=== PATIENT | male | born 1975 | race Hispanic/Latino ===

== ENCOUNTER 2016-12-13 20:04 | Inpatient (IN) | payer MEDICARE, MEDICAID ==
[~2016-12-13] VITALS: Ht 177.8 cm; Wt 266.1 kg
[~2016-12-13 20:04] MED LIST: AMOX500T2 PO; AMOX875T2 PO; GABA-502 PO; LACT1CAP73 PO; LISI10TA PO; METF500T4 PO; OXYC-466 PO; OXYC20TA4 PO; SERT100T9 PO
[2016-12-13 20:27] VITALS: BP 151/91; PULSE 105; RESP 24; O2SAT 93
--- NOTE | 2016-12-13 20:38 | ED.REPORT ---
HPI-Extremity Problem Lower Date of Service Dec 13, 2016 ED Provider: MD Jesús This is a 41 year old male with a history of recurrent lower extremity cellulitis with sepsis, morbid obesity, HTN and DM presenting to the ED complaining of right lower extremity swelling and pain that worsened 2 today. Reports chills. Denies nausea, vomiting, abdominal pain, headache, constipation , or diarrhea. Pt recently admitted from 11/02-11/07/16 for LE cellulitis with sepsis. Pt on chronic amoxicillin for recurring cellulitis but has not taken antibiotics in one week. Nursing Notes Stated Complaint: LEFT LEG POSSIBLE CELLULITIS Chief Complaint: Extremity Trauma Nursing Notes Reviewed: Yes Allergies: Coded Allergies: linezolid (Verified Allergy, Severe, Rash,Itching,, 07/25/14) Hives vancomycin (Verified Allergy, Severe, 12/13/16) Kidneys "shut down". Scheduled Gabapentin (Gabapentin) 300 Mg Capsule 900 MG PO DAILY Lisinopril (Lisinopril) 10 Mg Tablet 10 MG PO DAILY Sertraline HCl (Sertraline) 100 Mg Tablet 150 MG PO DAILY Scheduled PRN oxyCODONE (oxyCODONE) 20 Mg Tablet 20 MG PO QID PRN PRN For Pain General Time Seen by MD: 20:36 Chief Complaint Other (L leg pain ) Hx Obtained From: Patient Arrived By: Walk-in Onset Occurred: 5 - 8 hours ago Symptom Duration: Since onset Severity: Current: Moderate Pertinent Negative: Pt denies other symptoms Recent Healthcare: Recent doctor visit, Recent hospitalization Similar Sx Previous: Yes Past Medical History Past Medical History 1. Recurrent cellulitis right lower extremity, also hx of abdominal cellulitis 2. Severe lymphedema of right lower extremity greater than left. 3. Severe Morbid obesity. 4. Hypertension. 5. Chronic pain with narcotic dependence. 6. Seasonal allergies. 7. Obstructive sleep apnea. CPAP intolerant. 8. Fibromyalgia. 9. Sepsis 10. Arthritis 11. Depression 12. Anxiety Past Surgical History Hernia repair Reports: Cholecystectomy Smoking History Never Smoker Social History Uses mobility scooter Alcohol Use: Denies alcohol use Drug Use: Denies drug use Other Social History: Ambulatory Status Independent Review of Systems Constitutional: Reports: Chills, Denies: Fever Musculoskeletal: Reports: Extremity pain, Extremity swelling, Denies: Back pain, Neck pain Neurologic: Denies: Headache Complete sys rev & neg: except as marked. GI: Denies: Abdominal pain, Constipation, Diarrhea, Nausea, Vomiting Physical Exam Initial Vital Signs Vital Signs (First) Date Time Temp Pulse Resp B/P Pulse Ox O2 Delivery O2 Flow Rate FiO2 12/13/16 20:27 36.7 105 24 151/91 93 Room Air Initial VS: Reviewed Head / Eyes: Atraumatic, Normocephalic, PERRL ENT: Mucous membranes moist, Conjunctiva normal, No scleral icterus Neck: Supple, Non-tender, Full range of motion Respiratory: Breath sounds normal, Clear to auscultation, No respiratory distress Abdomen / GI: Soft, Non-tender, No guarding, No rebound, No distention Upper Extremities: Vascular intact, Neuro intact, No swelling, No tenderness Skin: Warm, Dry, No cyanosis Neurologic: Alert, Oriented, Nonfocal Psychiatric: Mood/affect normal, Behavior normal, Normal thought content Lower Extremity / Pelvis / MS: Full range of motion, Neurologic intact, Vascular intact Right Leg / Calf: Positive: Swelling present... Left Leg / Calf: Positive: Swelling present..., Tenderness present... Chronic venostasis changes to bilateral lower extremities. Circumfurential tenderness to palpation. Pulses present. Ankle / Foot: Full range of motion, No swelling, Neurologic intact, Vascular intact General/Constitutional: Awake, Alert Appearance / Presentation: Positive: Obese Cardiovascular: Regular rhythm, Heart sounds NL, Pulses = bilaterally Heart Rate / Rhythm: Positive: Tachycardia Lower Ext Edema: Positive: Bilateral 2+, Pitting Interpretation & Diagnostics Lab Results Interpretation Result Diagram: 12/13/16211912/13/162119 Test 12/13/16 21:20 White Blood Count 8.9th/mm3 (3.8-10.1) Red Blood Count 4.32mil/mm3 (4.40-5.80) Hemoglobin 11.5g/dL (13.8-17.2) Hematocrit 36.4% (41.0-50.0) Mean Corpuscular Volume 84.3fL (81-100) Mean Corpuscular Hemoglobin 26.6pg (27.0-35.0) Mean Corpuscular Hemoglobin Concent 31.6% (32.0-37.0) Red Cell Distribution Width 14.9% (12.3-15.4) Platelet Count 255bil/L (150-400) Neutrophils (%) (Auto) 82.1% (40-74) Lymphocytes (%) (Auto) 9.9% (14-46) Monocytes (%) (Auto) 6.1% (4-12) Eosinophils (%) (Auto) 1.5% (0-5) Basophils (%) (Auto) 0.2% (0-3) Sodium Level 135mEq/L (134-144) Potassium Level 4.5mEq/L (3.5-5.2) Chloride Level 100mEq/L (97-108) Carbon Dioxide Level 24mmol/L (18-29) Blood Urea Nitrogen 22mg/dL (6-24) Creatinine 1.36mg/dL (0.76-1.27) Estimat Glomerular Filtration Rate 61mL/min (>59) Glucose Level 130mg/dL (60-99) Lactic Acid Level 1.7mmol/L (0.4-2.0) Calcium Level 8.8mg/dL (8.5-10.1) Total Bilirubin 0.2mg/dL (0.0-1.2) Aspartate Amino Transf (AST/SGOT) 55U/L (0-50) Alanine Aminotransferase (ALT/SGPT) 35U/L (0-44) Alkaline Phosphatase 62U/L (25-150) Total Protein 8.1g/dL (6.4-8.4) Albumin 3.3g/dL (3.4-5.0) Re-Eval/Medical Decision Med Decision/Clinical Course 41-year-old male with past medical history of hypertension and severe morbid obesity, with recurrent bilateral lower extremity cellulitis here with left lower extremity pain, swelling, and redness. Differential diagnosis includes but is not limited to cellulitis versus necrotizing fasciitis versus deep vein thrombosis versus drug-seeking behavior. Clinically, the patient has cellulitis. He has no tenderness beyond the borders of the erythema, he has no hemorrhagic bulla, and he has no crepitus. I do not feel he requires further imaging. Additionally, he has had multiple ultrasonographic studies to rule out DVT, all of which were negative. Given how quickly the symptoms started, in their consistency with his previous presentation, I do not feel he requires an ultrasound of his leg to rule out DVT. He has been given clindamycin for his cellulitis, along with Dilaudid for pain control. He has been admitted to the hospitalist service for further treatment. He is aware and amenable to plan. Consultation : Referral / Consult Name: AleishanancyrobertKim Carolyne CASTELAN Consulted With: Hospitalist Call Returned at: 22:36 Card Writer Hand: Accepts admit Counseled Regarding: Diagnosis, Lab results, Need for follow-up, Need for admission Discharge & Departure Impression: Primary Impression: Cellulitis Site of cellulitis: extremity Site of cellulitis of extremity: lower extremity Laterality: left Qualified Code: L03.116 - Cellulitis of left lower limb Disposition: ADMITTED TO HOSPITAL Discharge Condition All VS Reviewed: Yes Condition: Stable Referrals: Derek Castro MD (PCP) Scribe Attestation Portions of this note were transcribed by Amandeep Martinez. I, Dr. Espinosa personally performed the history, physical exam and medical decision-making; I reviewed and confirmed the accuracy of the information in the transcribed note. Signed by: ana Cotter. 12/13/2016, 21:00. Claudia Espinosa MD Dec 13, 2016 20:37 AMANDEEP MARTINEZ Dec 13, 2016 20:39
[2016-12-13 21:40] LABS: BASOPHILS % (AUTO) 0.2 % (0-3); EOSINOPHILS % (AUTO) 1.5 % (0-5); MONOCYTES % (AUTO) 6.1 % (4-12); Mean Corpuscular Hemoglobin 26.6 pg (27.0-35.0); Mean Corpuscular Volume 84.3 fL (81-100); NEUTROPHILS % (AUTO) 82.1 % (40-74); Platelet Count 255 bil/L (150-400)
[2016-12-13] MEDS ORDERED: 0.9% Sodium Chloride 1,000 ML IV ONE (21:45)
[2016-12-13] MEDS ORDERED: HYDROmorphone 1 mg/mL Inj IVPUSH ONE (21:45)
[2016-12-13] MEDS ORDERED: Clindamycin Inj 900 MG in IV Premix 1 EACH IV ONE (21:45)
[2016-12-13] MEDS ORDERED: Polyethylene Glycol (PEG) 17 Gm Powder PO PRN (22:40)
[2016-12-13] MEDS ORDERED: Alum-Mag Hydrox-Simeth 30 mL Suspension PO PRN (22:40)
[2016-12-13] MEDS ORDERED: Ondansetron 2 mg/mL 2 mL Inj IVPUSH PRN (22:40)
[2016-12-13 23:14] VITALS: BP 141/61; PULSE 99; RESP 16; O2SAT 99
[2016-12-14] VITALS (9 sets, daily range): BP systolic 123–170; BP diastolic 70–108; PULSE 72–104; RESP 16–20; O2SAT 92–99
[2016-12-14 00:10] LABS: APPEARANCE,URINE SLIGHTLY CLOUDY (CLEAR,HAZY); COLOR,URINE DARK YELLOW (YELLOW); OCCULT BLOOD,URINE LARGE (NEGATIVE); UROBILINOGEN,URINE NORMAL (NORMAL)
[2016-12-14 00:11] LABS: YEAST,URINE MANY (NONE SEEN)
--- NOTE | 2016-12-14 00:46 | PCM.HPMED ---
Subjective Date of Service Dec 13, 2016 Primary Provider: Admitting Physician: Kim Domínguez DO Primary Care Physician: Derek Castro MD Attending Physician: Kim Domínguez DO Admit Status: From the Emergency Department Chief Complaint: Lower extremity pain and swelling History of Present Illness: This is a 41-year-old morbidly obese male with a history of recurrent leg cellulitis and sepsis, severe bilateral lymphedema, hypertension, rheumatoid arthritis, chronic pain, obstructive sleep apnea and depression with anxiety who was brought to [facility] ER by his due to increasing redness, swelling and pain in his left leg that occurred earlier today. He also noted chills. His last admission for cellulitis was last month 11/02/2016 and at that time it involved his left leg also. After his last discharge from the hospital, he was supposed to take Amoxicillin 500 mg bid for prophylaxis indefinitely. However, he stopped taking it about two weeks ago as he noted burning in his tongue and "strange feeling in his mouth and throat". Of note he does have an allergy to vancomycin and linezolid. Patient denies any cough. Denies any chest pain nausea or vomiting. Denies any alteration in bowel movements. Denies any abdominal pain. He does have complain having left thumb pain for 2 months now. On admission to the emergency department patient's vital were: temperature 36.7 , pulse 105, respiratory rate 24, blood pressure 151/91, pulse oximetry 93% on room air. His white count was 8.9. AST was noted to be 55, glucose 130, creatinine 1.36, BUN 22 creatinine with calculated GFR 61. Patient received a dose of IV Clindamycin and Dilaudid for pain. Review of Systems: Comprehensive review of systems was conducted with the patient and found to be negative except as noted above in HPI. Allergies Coded Allergies: linezolid (Verified Allergy, Severe, Rash,Itching,, 07/25/14) Hives vancomycin (Verified Allergy, Severe, 12/13/16) Kidneys "shut down". Home Medications Lisinopril 10 mg DAILY PO Oxycodone 20 mg PO QID PRN Oxycodone-Acetaminophen 10-325 mg PO Q4H PRN Sertraline HCl 150 mg DAILY PO Gabapentin 300 mg PO TID PMH Morbid obesity Current cellulitis or extremities Severe lymphedema of lower extremities Hypertension Rheumatoid Arthritis Chronic pain Obstructive sleep apnea but intolerant of CPAP History of fibromyalgia Depression/anxiety Surgical History Status post cholecystectomy Status post hernia repair Family History Positive for diabetes, rheumatoid arthritis, hypertension, bone cancer. Social History Occupation: Disabled. Hx Alcohol Use: No Hx Substance Use: No Hx Tobacco Use: No Smoking Status: Never Smoker Living Arrangement: with Family Exam Vital Signs Vital Sign - Last Date Time Temp Pulse Resp B/P Pulse Ox O2 Delivery O2 Flow Rate FiO2 12/13/16 23:14 37.6 99 16 141/61 99 Room Air Exam Constitutional: Morbidly obese male who is in pain distress Head: Normocephalic atraumatic Eyes: PERRL, EOMI Mouth: No abnormalities noted Neck: No adenopathy Chest: Clear to auscultation Heart: Regular rate and rhythm S1-S2 without murmur Abdomen: obese, soft nontender bowel sounds present Extremities: Bilateral lymphedema R>L, with left lower extremity erythematous up to about the knee.Tender to touch. No open areas or drainage noted. Left thumb very tender to palpation, but no erythema and/or swelling. Skin: As noted above otherwise no rashes Psych: Mood and affect are appropriate Neuro: Alert and oriented 3. Sensation and motor is not intact bilaterally. Lab and Diagnostics Result Diagram: 12/13/16211912/13/162119 Microbiology Blood cultures pending. Assessment & Plan This is a very pleasant 41-year-old morbidly obese male with a history of severe bilateral lymphedema, recurrent leg cellulitis and sepsis. Admitted for sepsis. #Sepsis, acute, POA -HR>90, RR>20, source LLE cellulitis -treatment as below # Acute on chronic cellulitis with sepsis, present on admission - Patient meets the definition of sepsis due to elevated his tachycardia, tachypnea, and suspected source of infection. We will proceed with IV Clindamycin/piperacillin-tazobactam to cover for cellulitis Blood cultures pending. Consider CT imaging if cellulitis worsens. We will use IV Dilaudid when necessary for pain. - ID consult if needed on Thursday # Chronic kidney disease, present on admission - Cr 1.36 on admission, usually Cr is between 1.37-1.58, has been consistently elevated since last hospital admission. - Give IV fluid hydration and recheck labs in a.m. # Left thumb pain, chronic, present on admission - Consider obtaining x-ray if still symptomatic # Hypertension, chronic, present on admission - Continue with current medication regimen. # Depression/anxiety, chronic, present on admission - Continue with current medication regimen # Obstructive sleep apnea, chronic - Observe for signs and symptoms of obstructive sleep apnea. Patient is intolerant of CPAP. Has an appointment in January for sleep study. - continue pulse ox - DVT prophylaxis subcutaneous Heparin - Bowel regimen as needed - Antiemetic as needed - CODE STATUS: Patient is full code. Pain Evaluation: Adequate Pain Control GI Prophylaxis: Not indicated VTE Prophylaxis Indicated: Meets Criteria for Anticoag Therapy VTE Prophylaxis: Sub-Q Heparin (Unfractionated) Resuscitation Status: CPR: Attempt Resuscitation Attending Statement The patient was seen and examined together with house staff on 12/13/2016 and I agree with the history, exam and plan as outlined in the note above. MELISSA ROBERTSON DO Dec 14, 2016 00:46 Kim Domínguez DO Dec 14, 2016 01:35
[2016-12-14] MEDS: HYDROmorphone 1 mg/mL Inj IVPUSH PRN ×7 (01:28→23:40)
[2016-12-14] MEDS: 0.9% Sodium Chloride 1,000 ML IV SCH ×3 (01:28→21:00)
[2016-12-14] MEDS ORDERED: Piperacillin-Tazo 3.375 Gm Inj 3.375 GM in Dextrose 5% Minibag Plus 50 ML IV ONE (02:35)
--- NOTE | 2016-12-14 02:48 | NUR ---
ADMIT Pt admitted from ED at 0000. Arrived via gurney to room 1018; SBA to [facility] bed. Pt A&Ox3, EDOUARD, VS obtained - pt stable with minimal change in VS since ED, IV SL to Right AC - patent, C/o pain to BLE L>R, Admission Documentation/MedRec completed. Pt oriented to room, call light in reach. Belongings in room and in anteroom. Tele placed. CPOx placed. Remote to bed not working - Controls at end of bed working. Work order placed for remote. Care continues.
[2016-12-14 06:30] LABS: BASOPHILS % (AUTO) 0.1 % (0-3); EOSINOPHILS % (AUTO) 1.8 % (0-5); MONOCYTES % (AUTO) 12.3 % (4-12); Mean Corpuscular Hemoglobin 26.4 pg (27.0-35.0); Mean Corpuscular Volume 84.3 fL (81-100); NEUTROPHILS % (AUTO) 64.1 % (40-74); Platelet Count 244 bil/L (150-400)
[2016-12-14] MEDS ORDERED: oxyCODONE-Acetamin 10-325 mg Tablet PO PRN (08:40)
[2016-12-14] MEDS: Heparin 5,000 Unit/mL Inj SUBQ SCH ×2 (08:58→16:03)
[2016-12-14] MEDS: Clindamycin Inj 900 MG in IV Premix 1 EACH IV SCH ×2 (08:58→17:41)
[2016-12-14] MEDS: Piper-Tazo 3.375 Gm/50 mL D5W Minibag Plus - Q8H over 4 hrs IV SCH ×4 (12:46→19:48)
--- NOTE | 2016-12-14 13:34 | PCM.PNMED ---
Subjective Date of Service Dec 14, 2016 Subjective HPI as per admitting physician: This is a 41-year-old morbidly obese male with a history of recurrent leg cellulitis and sepsis, severe bilateral lymphedema, hypertension, rheumatoid arthritis, chronic pain, obstructive sleep apnea and depression with anxiety who was brought to [facility] ER by his due to increasing redness, swelling and pain in his left leg that occurred earlier today. He also noted chills. His last admission for cellulitis was last month 11/02/2016 and at that time it involved his left leg also. After his last discharge from the hospital, he was supposed to take Amoxicillin 500 mg bid for prophylaxis indefinitely. However, he stopped taking it about two weeks ago as he noted burning in his tongue and "strange feeling in his mouth and throat". Of note he does have an allergy to vancomycin and linezolid. Patient denies any cough. Denies any chest pain nausea or vomiting. Denies any alteration in bowel movements. Denies any abdominal pain. He does have complain having left thumb pain for 2 months now. On admission to the emergency department patient's vital were: temperature 36.7 , pulse 105, respiratory rate 24, blood pressure 151/91, pulse oximetry 93% on room air. His white count was 8.9. AST was noted to be 55, glucose 130, creatinine 1.36, BUN 22 creatinine with calculated GFR 61. Patient received a dose of IV Clindamycin and Dilaudid for pain. S: Patient noting pain 710 and left lower extremity. He wanted to Percocet tens at home and has asked to increase his pain regimen today. Have increased his home regimen of one to 2 every 4 when necessary with 1 mg Dilaudid every 3 when necessary, I recommended and ordered continuous pulse oximetry given his narcotic use. Exam Vital Signs Vital Sign - Last Date Time Temp Pulse Resp B/P Pulse Ox O2 Delivery O2 Flow Rate FiO2 12/14/16 06:29 104 12/14/16 05:10 36.7 123/70 98 Nasal Cannula 2.00 12/14/16 00:15 20 Intake and Output 12/13/16 12/13/16 12/14/16 Cumulative From/Thru 15:00 23:00 07:00 12/13/16 20:27 - 12/14/16 06:31 Intake Total 863 ml 863 ml Output Total 1975 ml 1975 ml Balance -1112 ml -1112 ml Intake Oral 500 ml 500 ml IV Total 363 ml 363 ml Output Urine Total 1975 ml 1975 ml # Bowel Movements 0 0 Exam Constitutional: Morbidly obese male who is in pain distress Head: Normocephalic atraumatic Eyes: PERRL, EOMI Mouth: No abnormalities noted Neck: No adenopathy Chest: Clear to auscultation Heart: Regular rate and rhythm S1-S2 without murmur Abdomen: obese, soft nontender bowel sounds present Extremities: Bilateral severe lymphedema R>L, with left lower extremity erythematous up to about the knee.Tender to touch, well-demarcated. No open areas or drainage noted. Left thumb very tender to palpation, but no erythema and/or swelling. Skin: As noted above otherwise no rashes Psych: Mood and affect are appropriate Neuro: Alert and oriented 3. Sensation and motor is not intact bilaterally. IVs and Medications Medications Reviewed: Medications were reviewed in detail Lab and Diagnostics Result Diagram: 12/14/1660112/14/16601 Microbiology Blood cultures pending. Assessment & Plan This is a very pleasant 41-year-old morbidly obese male with a history of severe bilateral lymphedema, recurrent leg cellulitis and sepsis. Admitted for sepsis. #Sepsis, acute, POA -HR>90, RR>20, source LLE cellulitis -treatment as below # Acute on chronic cellulitis with sepsis, present on admission - Patient meets the definition of sepsis due to elevated his tachycardia, tachypnea, and suspected source of infection. We will proceed with IV Clindamycin/piperacillin-tazobactam to cover for cellulitis Blood cultures pending, no growth on Urine. Consider CT imaging if cellulitis worsens. We will use IV Dilaudid when necessary for pain. - ID consult if needed on Thursday # Chronic kidney disease, present on admission - Cr 1.36 on admission, usually Cr is between 1.37-1.58, has been consistently elevated since last hospital admission. - Give IV fluid hydration and recheck labs in a.m. # Left thumb pain, chronic, present on admission - Consider obtaining x-ray if continues to be symptomatic # Hypertension, chronic, present on admission - Continue with current medication regimen. # Depression/anxiety, chronic, present on admission - Continue with current medication regimen # Obstructive sleep apnea, chronic - Observe for signs and symptoms of obstructive sleep apnea. Patient is intolerant of CPAP. Has an appointment in January for sleep study. - continue pulse ox - DVT prophylaxis subcutaneous Heparin - Bowel regimen as needed - Antiemetic as needed - CODE STATUS: Patient is full code. GI Prophylaxis: Not indicated VTE Prophylaxis: Sub-Q Heparin (Unfractionated) Resuscitation Status: CPR: Attempt Resuscitation Time spent 35 minutes spent with evaluation and management Supa Venegas DO Dec 14, 2016 07:29
--- NOTE | 2016-12-14 14:12 | NUR ---
PAIN/ACTIVITY Patient stated that the Percocet PO has not been effective for pain control. Dr. Venegas was made aware of this. Dilaudid 1 mg IV was ordered and administered. Via FELDT scale patients pain level is 0/10 post medication administration. Tolerating liquids PO and his diet well. Denies nausea. No emesis noted. Denies SOB. Patient has not been OOB at this time. Per patient he just wants to rest now since he arrived in his room early this morning. Voiding without any problems. Patient is on remote tele. Per telemetry tech patient is on sinus rhythm; HR- 70's without any ectopies.
--- NOTE | 2016-12-14 19:25 | NUR ---
assumed care/pain/needs new bed Received report from Alfred HELMS at 1500 and assumed care of pt. Pt c/o 06/01 pain in legs, mainly left leg. Medicated x1 with prn IV dilaudid 1mg and pt reports pain "about the same" after medication administered, offered prn percocet as well but pt declined additional medication. Pt also noted that air was flowing out the mattress, making a hissing noise. This RN called [facility] [employer] and no other uma beds available, pt exceeds weight for other kathrine beds that are available. Called glazier supervisor who states that engineering who fixes the beds only comes Thursday, however there is another uma bed in house that will be available soon this evening and plan is to switch pt out to new bed as soon as possible. Report to next shift at 1900 and next shift RN aware that pt will be switched to new uma bed when available. Care continues. Call light in reach.
--- NOTE | 2016-12-14 21:11 | NUR ---
PER [employer]; will need to call in a.m. to have uma bed delivered. -No available bed in hospital.
[2016-12-15] VITALS (8 sets, daily range): BP systolic 137–179; BP diastolic 70–84; PULSE 66–82; RESP 16–20; O2SAT 96–99
[2016-12-15] MEDS: Clindamycin Inj 900 MG in IV Premix 1 EACH IV SCH ×2 (01:47→08:25)
[2016-12-15] MEDS: Heparin 5,000 Unit/mL Inj SUBQ SCH ×3 (01:53→16:12)
[2016-12-15] MEDS: HYDROmorphone 1 mg/mL Inj IVPUSH PRN ×7 (03:02→22:56)
[2016-12-15] MEDS: Piper-Tazo 3.375 Gm/50 mL D5W Minibag Plus - Q8H over 4 hrs IV SCH ×4 (03:05→10:57)
[2016-12-15] MEDS: 0.9% Sodium Chloride 1,000 ML IV SCH ×2 (03:07→19:41)
--- NOTE | 2016-12-15 03:22 | NUR ---
PAIN; pt turning self from side to side independently. Pt c/o left leg pain. Iv dilaudid given with stated relief for about 3 hours. Antibiotics continue. Pt denied offer of pillows for comfort except at feet.
--- NOTE | 2016-12-15 10:57 | NUR ---
[facility] Signed
[2016-12-15] MEDS: Ceftaroline Inj 600 MG in Dextrose 5% 250 ML IV SCH ×2 (12:54→21:23)
--- NOTE | 2016-12-15 13:03 | DRSVH ---
PROCEDURE: US VEINOUS LEG DUPLEX UNILATERAL, LEFT INDICATIONS: r/o left le dvt TECHNIQUE: Real-time imaging, as well as color and pulse Doppler interrogation, were performed of the lower extr emity deep veins from the inguinal ligament to the popliteal fossa. COMPARISON: [facility], US, US VENOUS LEG DPLX BILAT, 11/05/2016, 16:08. FINDINGS: The deep veins are normally compressible, and free of intraluminal thrombus. Color and pu lse Doppler demonstrate normal phasic intraluminal flow. There is normal augmentation response to di stal compression maneuver. Edema present within the lower leg. IMPRESSION: No deep venous thrombosis identified within the left lower extremity. Soft tissue edema i n the left lower extremity is noted. Dictated by: Kody [facility] Interpreted: Kayleen Romero MD on 12/15/2016 at 13:02 Transcribed by: GIANCARLO on 12/15/2016 at 13:02 Approved by: Kayleen Romero M.D. on 12/15/2016 at 13:44
--- NOTE | 2016-12-15 16:50 | NUR ---
spiritual care:pt request prayer and conversation. pt awaiting pain medicine and described symptoms and pain.
[2016-12-15] MEDS: oxyCODONE-Acetamin 10-325 mg Tablet PO PRN (17:11)
--- NOTE | 2016-12-15 17:19 | CONS ---
[address] [address] CONSULTATION REPORT PATIENT: PO DELGADO : 1975 MR#: [id number] ADMIT: 12/13/2016 JOB ID: [id number] DATE OF SERVICE: 12/15/2016 REASON FOR CONSULTATION: Recurrent severe left lower extremity cellulitis. HISTORY OF PRESENT ILLNESS: The patient is a super morbidly obese gentleman who is well known to me from prior admissions. The patient was last here in October and at that time had a severe streptococcal infection of the left lower extremity below the knee. The diagnosis was established at that time on the basis of serology. He was treated aggressively with intravenous antibiotics and discharged on a dose of prophylactic amoxicillin to be taken indefinitely to prevent recurrent streptococcal infection of the leg. The patient reports he took his b.i.d. amoxicillin for a couple weeks at least but then developed a burning sensation around his tongue and throat, especially when he drank acidic or citrus-type liquids. He also noted there was some irritation around his perianal area, so he quit the prophylactic amoxicillin. He did not specifically notice thrush in his mouth at that time, though it is unclear if he checked or not. In any event, the patient was doing okay until Thursday night, December 13, when he abruptly developed redness of the left lower extremity in association with fever and malaise. 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 In addition to fevers, chills and malaise as well as the pain and swelling in the left lower extremity, he notes some just generalized fatigue but otherwise not much in the way of focal symptoms. No headache or confusion was noted. No recent sore throat. No pulmonary or notable GI symptoms. PAST MEDICAL HISTORY: 1. Super morbid obesity with a BMI now at 87. 2. 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 3. Lymphedema and venous insufficiency of the lower extremities on the basis of extraordinary obesity. 4. Hypertension. 5. Fibromyalgia. 6. Chronic back pain. 7. Depression. 8. Obstructive sleep apnea. 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 He does not smoke or drink alcohol, lives with his and three kids. His children range in age from 17-22. FAMILY HISTORY: Negative for tuberculosis. REVIEW OF SYSTEMS: The patient denies headache. He has no visual complaints, no sinus complaints, no sore throat. No stiff neck. No cough, shortness of breath or chest pain. No abdominal pain, nausea, vomiting, diarrhea, though he does note some loose stools since admission. No specific urinary complaints such as urgency, frequency or dysuria. He does report he has been going to the gym lately and he has lost about 20 pounds. He continues to have the back pain which is a chronic problem for him as well as now pain in the left lower extremity which is usually not painful. PHYSICAL EXAMINATION: Reveals a massively obese gentleman whose current weight is approximately 275 kg for a calculated BMI of 87. He has been afebrile since admission, now temperature 36.4, blood pressure 147/71, pulse 70, respiratory rate 20, saturating well on 2 L. The patient is examined while sitting up in a chair as his bed is being switched out due to a "flat tire." The patient is alert, oriented and able to give a lucid history. There is no evidence for trauma to the head or neck. Sinuses are nontender. Eyes without conjunctival or scleral abnormalities. Nose normal. Oral cavity: No thrush or hairy leukoplakia. No pharyngitis is noted. The neck is supple. It is very obese and difficult to examine. Lungs are fairly clear posteriorly, but breath sounds are quite distant, not surprisingly. Cardiac tones likewise distant but regular rate and rhythm. Abdomen: Massively obese with large pannus. No focal abnormalities are palpated though it is difficult to perform a proper examination. The patient does not have a Reddy catheter. There are no suprapubic abnormalities immediately apparent but, again, this would be difficult to discern. The patient is observed ambulating at times in his room and is able to do so in a fairly steady fashion and even bend over and pick things up off the floor. The patient's lower extremities show venous stasis changes below the knees with lichenification of the tissues and obvious lymphedema. His feet are not swollen, but the area between the knees and ankles is to an extraordinary degree. On the left side, there is erythema, warmth and tenderness overlying the venous stasis changes. The patient is neurologically intact. He has surprisingly good muscle strength and coordination considering his size and is actually walking around the room as I dictate this, dropped something on the floor, pivoted and picked it up smoothly without difficulty. LABORATORIES: Include white blood count 7100, it was normal on admission, too, at 9000, but that was a little left shift on admission. That is now resolved. His creatinine 1.3. LFTs basically normal except for an AST of 55, pro calcitonin 0.11. Urinalysis had 6-10 white cells and grew mixed mario. There is no reason to suspect this patient has a urinary tract infection. One of four blood culture bottles is now growing a Staph species to be identified. In reviewing his records from the last couple of admissions, he has not grown any pathogen from blood and his MRSA screens have been negative. He has grown coag-negative Staph from blood in the past which we consider to be contaminant as there is always one bottle out of the series. IMAGING: No imaging has been done during this admission. IMPRESSION: This is an unfortunate gentleman who weighs 600 pounds or so with a BMI approaching 90. He has been troubled with, of course, back pain but also with recurrent lower extremity infections on the basis of venous insufficiency and lymphedema. During his last admission in October, it was clear that he had a group A strep infection based on his high ASO titer. We had tried to prophylax him with amoxicillin, and I had also strongly recommended that he see his new primary care physician, Dr. Alegria, to find out about weight loss and maybe even bariatric surgery. The patient has followed up with Dr. Alegria and has started to lose some weight through increased exercise and better diet but much work remains to be done. He, unfortunately, quit his amoxicillin because of some oral pain which I suspect was actually thrush judging by his description though he does not have it today. Today we are left with the question again of whether or not his cellulitis is due to Staph or strep. We have one blood culture bottle already growing Staph which could be a contaminant or real if it is turns out to be Staph aureus. Most likely, I think this is group A or group B strep, however. RECOMMENDATIONS: 1. ASO titer will be ordered. 2. MRSA screen will be ordered. 3. An ultrasound of the left lower extremity will be ordered to rule out DVT. 4. I would switch his antibiotics at this point to Ceftaroline to provide coverage for both staph and strep while we await the identification of the organisms of the blood as well as the ASO titer we have ordered. 5. The current antibiotics which include clindamycin and Zosyn can be discontinued. Thank you for this very interesting consult.
--- NOTE | 2016-12-15 18:17 | NUR ---
Pain- Patient complaining of 6-8/10 left leg pain despite ordered pain meds. He stated that his right leg was starting to feel tender from the calf up to his thigh, and it felt like it did in his left leg.I did not notice any change in color or size. MD notified. Patient has been up to bathroom and sat up in chair.
--- NOTE | 2016-12-15 19:08 | PCM.PNMED ---
Subjective Date of Service Dec 15, 2016 Subjective denies any new issues/complaints other than ongoing left leg pain Exam Vital Signs Vital Sign - Last Date Time Temp Pulse Resp B/P Pulse Ox O2 Delivery O2 Flow Rate FiO2 12/15/16 16:08 36.6 75 20 153/83 96 Room Air 12/15/16 04:21 2.00 Intake and Output 12/14/16 12/14/16 12/15/16 Cumulative From/Thru 15:00 23:00 07:00 12/13/16 20:27 - 12/15/16 05:52 Intake Total 1820 ml 1289 ml 3972 ml Output Total 1300 ml 1065 ml 4340 ml Balance 520 ml 224 ml -368 ml Intake Oral 600 ml 700 ml 1800 ml IV Total 1220 ml 589 ml 2172 ml Output Urine Total 1300 ml 1065 ml 4340 ml # Bowel Movements 1 0 1 Exam Constitutional: Morbidly obese male who is in pain distress Head: Normocephalic atraumatic Eyes: PERRL, EOMI Mouth: No abnormalities noted Neck: No adenopathy Chest: Clear to auscultation Heart: Regular rate and rhythm S1-S2 without murmur Abdomen: obese, soft nontender bowel sounds present Extremities: Bilateral severe lymphedema R>L, with left lower extremity erythematous up to about the knee.Tender to touch, well-demarcated. No open areas or drainage noted. Left thumb very tender to palpation, but no erythema and/or swelling. Skin: As noted above otherwise no rashes Psych: Mood and affect are appropriate Neuro: Alert and oriented 3. Sensation and motor is not intact bilaterally. IVs and Medications Medications Reviewed: Medications were reviewed in detail Lab and Diagnostics Result Diagram: 12/14/1660112/14/16601 Microbiology Blood cultures pending. Assessment & Plan 41-year-old morbidly obese male with a history of severe bilateral lymphedema, recurrent leg cellulitis and sepsis. Admitted for sepsis. # Suspected acute sepsis on admission clinically ruled out. -treatment as below # Acute on chronic cellulitis, present on admission - appreciate ID consult. will f/u - f/u ASO titer - f/u MRSA screen - f/u pending cultures - LLE U/S r/o DVT - Abx changed to Ceftaroline per ID recs # one positive blood culture. - ? contamination or real - f/u final culture result - Abx as noted above # Chronic kidney disease, present on admission - Cr 1.36 on admission, usually Cr is between 1.37-1.58, has been consistently elevated since last hospital admission. - improved with IVF over night. # Left thumb pain, chronic, present on admission. Resolved # Hypertension, chronic, present on admission. stable - Continue with current medication regimen. # Depression/anxiety, chronic, present on admission - Continue with current medication regimen # Obstructive sleep apnea, chronic - Observe for signs and symptoms of obstructive sleep apnea. Patient is intolerant of CPAP. Has an appointment in January for sleep study. - continue pulse ox Dispo: 2-3 days GI Prophylaxis: Not indicated VTE Prophylaxis: Sub-Q Heparin (Unfractionated) Resuscitation Status: CPR: Attempt Resuscitation Time spent 35 min Abbe Gallagher Dec 15, 2016 19:08
[2016-12-16 00:19] VITALS: BP 164/84; PULSE 74; RESP 20; O2SAT 96
[2016-12-16] MEDS: Heparin 5,000 Unit/mL Inj SUBQ SCH ×3 (00:48→16:59)
[2016-12-16] MEDS: HYDROmorphone 1 mg/mL Inj IVPUSH PRN ×6 (02:06→21:06)
[2016-12-16 04:36] VITALS: BP 163/95; PULSE 66; RESP 20; O2SAT 99
[2016-12-16] MEDS: Ceftaroline Inj 600 MG in Dextrose 5% 250 ML IV SCH ×3 (05:18→21:05)
--- NOTE | 2016-12-16 06:36 | NUR ---
pain pt has complained of pain 6-8/10 in intensity in his L and R leg. pt believes his R leg is more swollen then usual and the pain in increases. notified. no new orders at this time. pt has received 1mg of IV dilaudid every 3 hrs this shift. he says it brings his pain down no lower then a 5/10. also pts bariatric bed will know longer inflate. the bed manufactures were called who said they would send a repair technician. there is no other bed that meets the weight requirements for the pt available at this time. the charge nurses have taken over the search for a bariatric chair to move the pt into until the bed is fixed.
[2016-12-16] MEDS: 0.9% Sodium Chloride 1,000 ML IV SCH ×2 (08:13→18:35)
[2016-12-16 08:45] VITALS: BP 130/84; PULSE 74
[2016-12-16 10:00] VITALS: BP 154/79; PULSE 70; RESP 21; O2SAT 95
--- NOTE | 2016-12-16 13:19 | NUR ---
Pain Patient reported 6/10 leg pain. 1 mg Dilaudid given. Denies nausea at this time. Patient repositions self for comfort. Call light and tray table within reach. Will continue to monitor patient hourly.
--- NOTE | 2016-12-16 14:15 | NUR ---
Social Work Initial Assessment: SW met with patient at bedside to discuss discharge plan. Patient verified name, address, and contact information. Patient is a 41 year old female admitted on 11/23/16 for cellulitis. Patient payer as Medicare and [employer]. Patient has penitentiary disability. Patient has no VA benefits. Patient PCP as MD Alegria. Patient resides in [facility] with Deb, . Patient states having no previous HHC, SNF DME or AD history. Patient states being independent with needs at this time. SW to follow with IV abx plan pending clinical course. Patient denied any further discharge needs at this time. PLAN: Home with , via POV pending clinical course. SW to follow for IV abx plan pending clinical course Jag [facility]YS Addendum: 12/16/16 at 1425 by KOKI HANSEN Amended: Links added.
--- NOTE | 2016-12-16 14:30 | PROG NOTE ---
[address] [address] PROGRESS NOTE PATIENT: PO DELGADO : 1975 MR#: [id number] ADMIT: 12/13/2016 JOB ID: [id number] DATE: 12/16/2016 INFECTIOUS DISEASE FOLLOW UP NOTE: REASON FOR FOLLOWUP: Left lower extremity cellulitis in a massively obese gentleman, BMI 93.8. INTERVAL HISTORY: Overnight, the patient reports that he has not had fevers or chills. He is not especially short of breath and he is basically at his baseline. His bed broke at some point during the last 24 hours and he was forced to spend a portion of the night and early this morning sitting up and sleeping on a small couch in his room which led to his legs swelling even more than they were when he came in, but if anything, despite this his left lower extremity has improved a bit. There is still pain below the knee but it is not perhaps as severe as it was. Temperature 36 degrees, pulse 70, respiratory rate 21. Blood pressure 154/79. He is saturating well on room air. Examination of the mental status reveals it to be clear. Lung sounds are very distant but clear. Abdomen obese but without change. Left lower extremity shows a partial resolution of the cellulitis that was present yesterday as the cellulitis did extend almost up to the knee and it is about 50% better just since we saw the patient yesterday. There is still lichenification and venous stasis type changes in both lower extremities from the mid calf on down and this was not changed, of course. LABORATORIES: Include a white count of 7100, platelet count 244. Creatinine 1.3 and those are yesterday's lab values. The cultures from the blood one of four growing coag-negative staph, which I would call a contaminant. The urine is growing mixed mario which is likely also a contaminant of venous study of the leg which we ordered yesterday. It shows no evidence of clot. IMPRESSION: This super morbidly obese gentleman with BMI exceeding 90 presents with left lower extremity cellulitis which is likely going to be streptococcal. Recall that the patient has a history of well-documented Streptococcus cellulitis previously as well. Overall I think it is going to be more likely this will be a beta hemolytic strep than staph, but would continue to treat for both while we await some additional studies. RECOMMENDATIONS: 1. We await the ASO titer and MRSA which were just ordered. 2. I would continue with ceftaroline, while we closely observe the patient. 3. Depending on what we find with our cultures and our serology, we will likely narrow the antibiotics considerably here in the near future.
[2016-12-16] MEDS: oxyCODONE-Acetamin 10-325 mg Tablet PO PRN ×2 (15:03→19:22)
[2016-12-16 15:13] VITALS: BP 168/80; PULSE 64; RESP 20; O2SAT 97
--- NOTE | 2016-12-16 18:47 | PCM.PNMED ---
Subjective Date of Service Dec 16, 2016 Subjective denies any new issues/complaints other than ongoing left leg pain Exam Vital Signs Vital Sign - Last Date Time Temp Pulse Resp B/P Pulse Ox O2 Delivery O2 Flow Rate FiO2 12/16/16 15:13 36.3 64 20 168/80 97 Room Air 12/16/16 00:19 2.00 Intake and Output 12/15/16 12/15/16 12/16/16 Cumulative From/Thru 15:00 23:00 07:00 12/13/16 20:27 - 12/16/16 06:25 Intake Total 2168 ml 650 ml 6790 ml Output Total 1800 ml 1500 ml 7640 ml Balance 368 ml -850 ml -850 ml Intake Oral 1000 ml 650 ml 3450 ml IV Total 1168 ml 3340 ml Output Urine Total 1800 ml 1500 ml 7640 ml # Bowel Movements 0 1 Exam Constitutional: Morbidly obese male who is in pain distress Head: Normocephalic atraumatic Mouth: No abnormalities noted Neck: No adenopathy Chest: Clear to auscultation bilat Heart: Regular rate and rhythm Abdomen: obese, soft nontender bowel sounds present Extremities: Bilateral severe lymphedema R>L, with left lower extremity erythematous up to about the knee. Skin: As noted above otherwise no rashes Psych: Mood and affect are appropriate Neuro: Alert and oriented 3. IVs and Medications Medications Reviewed: Medications were reviewed in detail Lab and Diagnostics Result Diagram: 12/14/1660112/14/16601 Microbiology Blood cultures pending. Assessment & Plan 41-year-old morbidly obese male with a history of severe bilateral lymphedema, recurrent leg cellulitis and sepsis. Admitted for sepsis. # Suspected acute sepsis on admission clinically ruled out. - treatment as below # Acute on chronic cellulitis, present on admission - appreciate ID consult. will f/u - f/u ASO titer - f/u MRSA screen - f/u pending cultures - LLE U/S r/o DVT - c/w Ceftaroline per ID recs # one positive blood culture. - ? contamination or real - f/u final culture result - Abx as noted above # Chronic kidney disease, present on admission - Cr 1.36 on admission, usually Cr is between 1.37-1.58, has been consistently elevated since last hospital admission. - improved with IVF # Left thumb pain, chronic, present on admission. Resolved # Hypertension, chronic, present on admission. stable - Continue with current medication regimen. # Depression/anxiety, chronic, present on admission - Continue with current medication regimen # Obstructive sleep apnea, chronic - Observe for signs and symptoms of obstructive sleep apnea. Patient is intolerant of CPAP. Has an appointment in January for sleep study. - continue pulse ox Dispo: 1-2 days pending cultures GI Prophylaxis: Not indicated VTE Prophylaxis: Sub-Q Heparin (Unfractionated) Resuscitation Status: CPR: Attempt Resuscitation Abbe Gallagher Dec 16, 2016 18:47
[2016-12-16 20:27] VITALS: BP 169/76; PULSE 85; RESP 20; O2SAT 94
[2016-12-17] MEDS: oxyCODONE-Acetamin 10-325 mg Tablet PO PRN ×4 (00:12→16:59)
[2016-12-17 00:34] VITALS: BP 145/79; PULSE 72; RESP 20; O2SAT 97
[2016-12-17] MEDS: Heparin 5,000 Unit/mL Inj SUBQ SCH ×3 (01:23→17:00)
--- NOTE | 2016-12-17 01:29 | NUR ---
Calf pain Patient complaining of new left calf pain. Calf feels hard and firm to the touch. Night hospitalist was informed. Hospitalist stated that he didn't think DVT was a possibility since patient had venous duplex US on left lower extremity on 12/15/16 that was negative for DVT. Patient receiving Percocet q4 as well as Dilaudid intermittently.
[2016-12-17] MEDS: HYDROmorphone 1 mg/mL Inj IVPUSH PRN ×3 (02:36→19:59)
[2016-12-17] MEDS: Ceftaroline Inj 600 MG in Dextrose 5% 250 ML IV SCH ×3 (04:08→20:18)
[2016-12-17 05:08] VITALS: BP 151/82; PULSE 70; RESP 20; O2SAT 98
[2016-12-17 05:32] LABS: Mean Corpuscular Hemoglobin 25.9 pg (27.0-35.0); Mean Corpuscular Volume 84.7 fL (81-100)
[2016-12-17] MEDS: 0.9% Sodium Chloride 1,000 ML IV SCH ×3 (07:47→19:40)
--- NOTE | 2016-12-17 08:11 | NUR ---
Pain Patient reported 5/10 leg pain. 1 mg Dilaudid given. Denies nausea at this time. Patient repositions self for comfort. Call light and tray table within reach. Will continue to monitor patient hourly.
[2016-12-17 13:05] VITALS: BP 159/81; PULSE 62; RESP 16; O2SAT 95
--- NOTE | 2016-12-17 16:04 | NUR ---
NUTRITION ASSESSMENT ASSESS: 41 yo male admitted w/ cellulitis and possible sepsis. Pt has increased redness, swelling and pain in lower left leg. Pt states he is following a diet at home, and is trying to limit intake when at the hospital d/t lack of activity. Pt is refusing some meals when family brings food. His appetite remains fine. He states having a difficult time eating breakfast, but knows he needs food to help start his metabolism for the day. Pt was willing to try a [place] Ensure at breakfast to help w/ intake in the morning. PMHX: Morbid obesity, current cellulitis of extremities, severe lymphedema of lower extremities, HTN, RA, chronic pain, obstructive sleep apnea, fibromyalgia, depression/anxiety, CKD LABS: Reviewed. Gluc 109, AST (12/13), Alb 3.3 MEDS: Reviewed. GI: BM x 1 (12/14) SKIN: Gonzalo 20 Cellulitis and lymphedema noted in left lower leg DIET: Heart Healthy PO Refused 100% CURRENT WT: 266.1 kg BMI: 84.2 kg/m2 STATED WT: 264.55 kg IBW: 75.5 kg ABW: 125.0 kg EST. NEEDS: BMI>40 Kcals: 9691-2759 kcal/day (25-30 kcal/kg ABW) Pro: 150-185 g/day (1.2-1.5 g/kg ABW) NUTRITION DIAGNOSIS: 1.) Decreased PO intake related to patient preference as evidenced by patient refusal of some meals and patient wanting to limit intake while immobile at the hospital. NUTRITION INTERVENTION: 1.) Add [place] Ensure at breakfast to ensure adequate calorie and protein intake. 2.) Discussed general healthy nutrition for wt loss and need for consistent nutrition throughout the day. MONITOR / EVAL: PO intake, GI, wt, labs, POC. Will continue to monitor pt per moderate nutritional risk guidelines. Addendum: 12/17/16 at [address] Student documentation reviewed and I agree with the above assessment. Wesley Robertson, MS, RDN, CD
--- NOTE | 2016-12-17 16:32 | PCM.PNMED ---
Subjective Date of Service Dec 17, 2016 Subjective denies any new issues/complaints Exam Vital Signs Vital Sign - Last Date Time Temp Pulse Resp B/P Pulse Ox O2 Delivery O2 Flow Rate FiO2 12/17/16 15:39 Supplement Oxygen 12/17/16 13:05 36.4 62 16 159/81 95 12/16/16 00:19 2.00 Intake and Output 12/16/16 12/16/16 12/17/16 Cumulative From/Thru 15:00 23:00 07:00 12/13/16 20:27 - 12/16/16 20:47 Intake Total 1573 ml 2916 ml 61457 ml Output Total 1400 ml 9040 ml Balance 1573 ml 1516 ml 2239 ml Intake Oral 1672 ml 5122 ml IV Total 1573 ml 1244 ml 6157 ml Output Urine Total 1400 ml 9040 ml # Bowel Movements 1 Exam Constitutional: Morbidly obese male who is in pain distress Head: Normocephalic atraumatic Neck: supple Chest: Clear to auscultation bilat Heart: Regular rate and rhythm Abdomen: obese, soft nontender bowel sounds present Extremities: Bilateral severe lymphedema R>L, with left lower extremity erythematous up to about the knee. Skin: As noted above otherwise no rashes Psych: Mood and affect are appropriate Neuro: Alert and oriented 3. IVs and Medications Medications Reviewed: Medications were reviewed in detail Lab and Diagnostics Result Diagram: 12/17/1644912/17/16 0450 Microbiology Blood cultures pending. Assessment & Plan 41-year-old morbidly obese male with a history of severe bilateral lymphedema, recurrent leg cellulitis and sepsis. Admitted for sepsis. # Suspected acute sepsis on admission clinically ruled out. - treatment as below # Acute on chronic cellulitis, present on admission - appreciate ID consult. will f/u - f/u ASO titer - f/u MRSA screen - f/u pending cultures - LLE U/S r/o DVT - c/w Ceftaroline per ID recs # one positive blood culture. - ? contamination or real - f/u final culture result - Abx as noted above # Chronic kidney disease, present on admission - Cr 1.36 on admission, usually Cr is between 1.37-1.58, has been consistently elevated since last hospital admission. - improved with IVF # Left thumb pain, chronic, present on admission. Resolved # Hypertension, chronic, present on admission. stable - Continue with current medication regimen. # Depression/anxiety, chronic, present on admission - Continue with current medication regimen # Obstructive sleep apnea, chronic - Observe for signs and symptoms of obstructive sleep apnea. Patient is intolerant of CPAP. Has an appointment in January for sleep study. - continue pulse ox Dispo: 1-2 days pending cultures GI Prophylaxis: Not indicated VTE Prophylaxis: Sub-Q Heparin (Unfractionated) Resuscitation Status: CPR: Attempt Resuscitation Time spent 25 min Abbe Gallagher Dec 17, 2016 16:32
[2016-12-17 16:44] VITALS: BP 165/81; PULSE 68; RESP 15; O2SAT 96
--- NOTE | 2016-12-17 18:07 | NUR ---
Pain control Main problem with this pt is pain in the left leg. Pt describes this as a pressure/tightness due to cellulitis. Pt has been given pain medications to keep up with the pain. Pt is encouraged to take prescribed medications PRN to control the pain. Non-narcotic interventions include elevating the effected leg and deep breathing when pain occurs. Pt is also encouraged to drink an adequate amount of fluid to stay hydrated. Pt was educated on importance of pulse ox, pt refuses continuous pulse ox.
[2016-12-17 21:08] VITALS: BP 157/74; PULSE 75; RESP 20; O2SAT 95
[2016-12-18] MEDS: oxyCODONE-Acetamin 10-325 mg Tablet PO PRN ×3 (00:21→16:08)
[2016-12-18] MEDS: Heparin 5,000 Unit/mL Inj SUBQ SCH ×3 (00:43→16:09)
[2016-12-18] MEDS: Ceftaroline Inj 600 MG in Dextrose 5% 250 ML IV SCH ×2 (03:51→12:04)
[2016-12-18] MEDS: HYDROmorphone 1 mg/mL Inj IVPUSH PRN (03:51)
--- NOTE | 2016-12-18 05:18 | NUR ---
Pain Patient on bedrest most of shift. Patient did get up to shower this evening and tolerated the ambulation well. Patient's IV became infiltrated. IV was DC'd and new Peripheral IV started in left hand. Patient taking 2 Percocet q4 for pain. Occasionally patient is taking 1mg Dilaudid, prior to getting up for shower.
[2016-12-18 05:19] VITALS: BP 148/89; PULSE 67; RESP 20; O2SAT 93
[2016-12-18 08:15] VITALS: BP 169/96; PULSE 65; RESP 24; O2SAT 96
--- NOTE | 2016-12-18 11:03 | NUR ---
Social Work Continued Discharge Planning and Discharge: Order for discharge acknowledged. Patient states plan as home with who to provide support and care. Patient states having no identified discharge needs at this time. SW to follow for ID plan pending further eval for possible transition to oral abx. SW to follow. PLAN: Home with , pending ID plan. SW to follow pending further clinical course. Jag HAYS
[2016-12-18 12:19] VITALS: BP 180/92; PULSE 70; RESP 24; O2SAT 94
[2016-12-18] MEDS ORDERED: cefTRIAXone Inj 2,000 MG in Dextrose 5% Minibag Plus 50 ML IV ONE (13:30)
--- NOTE | 2016-12-18 13:42 | PROG NOTE ---
[address] [address] PROGRESS NOTE PATIENT: PO DELGADO : 1975 MR#: [id number] ADMIT: 12/13/2016 JOB ID: [id number] DATE: 12/18/2016 INFECTIOUS DISEASE FOLLOWUP NOTE: REASON FOR FOLLOWUP: Severe left lower extremity group A streptococcal cellulitis. INTERVAL HISTORY: The patient reports no fevers, chills, or sweats. No cough. No shortness of breath, nausea, or vomiting. He reports his left lower extremity is steadily better. He was able to take a shower last night with minimal pain in the affected area. PHYSICAL EXAMINATION: Reveals a massively obese gentleman comfortably lying in bed. Temperature 36.7, pulse 70, respiratory rate 24, blood pressure 180/92. He is saturating well. His is alert and oriented. Lungs are clear. Abdomen massively obese and hard to examine, but no evident abnormalities. The left lower extremity erythema, warmth and tenderness have essentially resolved. LABORATORIES: Include white count yesterday 5800. Creatinine yesterday 1.15, down from 1.36 a couple of days earlier. His ASO titer or so-called streptozyme titer 426, which is grossly elevated and establishes a diagnosis of group A streptococcal infection. MRSA screen negative. One blood culture out of four grew micrococcus, and that is a contaminant. IMPRESSION: This patient had quite a severe group A streptococcal infection of his left lower extremity which is now rapidly on the mend. We have eliminated the possibility of methicillin-resistant Staphylococcus aureus infection and now know it is due to group A streptococcus. RECOMMENDATIONS: 1. Will discontinue the ceftaroline. 2. The patient will be given one dose of ceftriaxone 2 g x1 this afternoon. 3. The patient can be discharged at any time. I would send him out on amoxicillin 1 g p.o. t.i.d. to be taken for about one more week. 4. The patient should follow up with Dr. Alegria and strongly consider bariatric surgery or any and all alternatives to his continued super morbid obesity with BMI approaching 90 and weight 265 kg. 5. Infectious Disease is signing off.
[2016-12-18] MEDS ORDERED: AMOX500T2 PO (15:47)
[2016-12-18] MEDS ORDERED: LISI10TA PO (15:47)
[2016-12-18] MEDS ORDERED: OXYC20TA4 PO (15:52)
--- NOTE | 2016-12-18 15:57 | PCM.DIMED ---
Discharge Instructions Date of Service Dec 18, 2016 Dates of Hospitalization Dec 13, 2016 at 22:45 Discharge Diagnosis Discharge Diagnosis # Acute group A-Streptococcal infection of left lower extremity, present on admission # Suspected acute sepsis on admission clinically ruled out. # Chronic kidney disease, present on admission. Improved and stable # Left thumb pain, chronic, present on admission. Resolved # Hypertension, chronic, present on admission. ongoing # Depression/anxiety, chronic, stable. # Obstructive sleep apnea, chronic. stable. Diet Low fat, Low Sodium, Heart Healthy Activity No restrictions Call your provider Fever or Chills, Shortness of breath, Chest pain, Vomitting, Excessive diarrhea Patient Instructions Seek immediate medical attention if any new or worsening signs or symptoms occur. Follow-up plan 1. Followup with primary care provider in 4-7 days Follow-up Provider: Supa Alegria Masoud Dec 18, 2016 15:57
[2016-12-18] MEDS ORDERED: OXYC-466 PO (15:58)
--- NOTE | 2016-12-18 17:09 | PCM.DC.MED ---
Discharge Summary Date of Service Dec 18, 2016 Dates of Hospitalization Date of Hospital Admission Dec 13, 2016 at 22:45 Date of Discharge: Dec 18, 2016 Providers: Admitting Physician: Kim Domínguez DO Primary Care Physician: Derek Castro MD Attending Physician: Kim Domínguez DO Diagnosis at Time of Discharge Diagnosis at Time of Discharge # Acute group A-Streptococcal infection of left lower extremity, present on admission # Suspected acute sepsis on admission clinically ruled out. # Chronic kidney disease, present on admission. Improved and stable # Left thumb pain, chronic, present on admission. Resolved # Hypertension, chronic, present on admission. ongoing # Depression/anxiety, chronic, stable. # Obstructive sleep apnea, chronic. stable. Consultations 1. ID (Dr. Eddy) Procedures Other Diagnostics Date of Service: 12/15/16 1146 PROCEDURE: US VEINOUS LEG DUPLEX UNILATERAL, LEFT IMPRESSION: No deep venous thrombosis identified within the left lower extremity. Soft tissue edema in the left lower extremity is noted. Dictated by: Kody Maria RRA Interpreted: Kayleen Romero MD on 12/15/2016 at 13:02 Transcribed by: GIANCARLO on 12/15/2016 at 13:02 Approved by: Kayleen Romero M.D. on 12/15/2016 at 13:44 Brief History 41-year-old morbidly obese male with a history of severe bilateral lymphedema, recurrent leg cellulitis and sepsis. Admitted for sepsis. Hospital Course # Suspected acute sepsis on admission clinically ruled out. - treatment as below # Acute on chronic cellulitis, present on admission - appreciate ID consult. will f/u w/ recs - ASO titer positive - MRSA screen negative - LLE U/S r/o DVT - Treated with Ceftaroline during this hospital and will be discharged on PO Amoxicillin for 7 more days # one positive blood culture likely contamination # Chronic kidney disease, present on admission - Cr 1.36 on admission, usually Cr is between 1.37-1.58 - improved with IVF # Left thumb pain, chronic, present on admission. Resolved # Hypertension, chronic, present on admission. poorly controlled - will increase home dose Lisinopril 10mg daily to 10 mg bid on discharge with recommendation for close f/u w/ PCP to reassess in next few days # Depression/anxiety, chronic, present on admission - Continue with current medication regimen # Obstructive sleep apnea, chronic - Observe for signs and symptoms of obstructive sleep apnea. Patient is intolerant of CPAP. Has an appointment in January for sleep study. - continue pulse ox by day of d/c lungs CTA bilat. Exam Vital Signs (Last) Date Time Temp Pulse Resp B/P Pulse Ox O2 Delivery O2 Flow Rate FiO2 12/18/16 12:19 36.7 70 24 180/92 94 Room Air 12/16/16 00:19 2.00 Test 12/13/16 21:20 12/13/16 23:00 12/14/16 06:02 12/16/16 14:35 Lactic Acid Level 1.7mmol/L (0.4-2.0) Total Bilirubin 0.2mg/dL (0.0-1.2) Aspartate Amino Transf (AST/SGOT) 55U/L (0-50) Alanine Aminotransferase (ALT/SGPT) 35U/L (0-44) Alkaline Phosphatase 62U/L (25-150) Total Protein 8.1g/dL (6.4-8.4) Albumin 3.3g/dL (3.4-5.0) Urine Color Dark yellow (YELLOW) Urine Appearance Slightly cloudy Urine pH 6.0 (5.0-8.0) Urine Specific [place] 1.015 (1.003-1.035) Urine Protein 30mg/dL (NEG,TRACE) Urine Glucose (UA) Negativemg/dL (NEGATIVE) Urine Ketones Negativemg/dL (NEGATIVE) Urine Occult Blood Large (NEGATIVE) Urine Nitrite Negative (NEGATIVE) Urine Bilirubin Negative (NEGATIVE) Urine Urobilinogen Normalmg/dL (NORMAL) Urine Leukocyte Esterase Negative (NEGATIVE) Urine RBC >50/hpf (0-2) Urine WBC 6-10/hpf (0-5) Urine Epithelial Cells Few/hpf (NONE-MOD) Urine Crystals None seen (NONE SEEN) Urine Bacteria None/hpf (NONE-FEW) Urine Hyaline Casts None/lpf (NONE) Urine Granular Casts None seen (NONE SEEN) Urine Waxy Casts None seen (NONE SEEN) Urine Red Blood Cell Casts None seen (NONE SEEN) Urine White Blood Cell Casts None seen (NONE SEEN) Urine Mucus None seen (None Seen) Urine Trichomonas None seen (NONE SEEN) Urine Yeast Many (NONE SEEN) Urine Culture Reflexed Indicated Neutrophils (%) (Auto) 64.1% (40-74) Lymphocytes (%) (Auto) 21.6% (14-46) Monocytes (%) (Auto) 12.3% (4-12) Eosinophils (%) (Auto) 1.8% (0-5) Basophils (%) (Auto) 0.1% (0-3) Procalcitonin 0.11ng/mL (See Comment) Streptozyme 426.3IU/mL (0.0-200.0) Test 12/17/16 04:50 White Blood Count 5.8th/mm3 (3.8-10.1) Red Blood Count 4.13mil/mm3 (4.40-5.80) Hemoglobin 10.7g/dL (13.8-17.2) Hematocrit 35.0% (41.0-50.0) Mean Corpuscular Volume 84.7fL (81-100) Mean Corpuscular Hemoglobin 25.9pg (27.0-35.0) Mean Corpuscular Hemoglobin Concent 30.6% (32.0-37.0) Red Cell Distribution Width 14.6% (12.3-15.4) Platelet Count 277bil/L (150-400) Sodium Level 142mEq/L (134-144) Potassium Level 4.2mEq/L (3.5-5.2) Chloride Level 106mEq/L (97-108) Carbon Dioxide Level 27mmol/L (18-29) Blood Urea Nitrogen 13mg/dL (6-24) Creatinine 1.15mg/dL (0.76-1.27) Estimat Glomerular Filtration Rate 74mL/min (>59) Glucose Level 109mg/dL (60-99) Calcium Level 9.0mg/dL (8.5-10.1) Microbiology Results Blood cultures pending. Discharge Medications Discharge Medications Amoxicillin (Amoxicillin) 500 Mg Tablet 1,000 MG PO TID Prescribed by: AMY GUPTA MD Gabapentin (Gabapentin) 300 Mg Capsule 900 MG PO HS (Reported) GABAPENTIN 900 MG PO TID BUT PATIENT JUST TAKES IT AT HS. Lisinopril (Lisinopril) 10 Mg Tablet 10 MG PO BID Prescribed by: AMY GUPTA MD Sertraline HCl (Sertraline) 100 Mg Tablet 150 MG PO DAILY (Reported) As needed oxyCODONE-Acetaminophen 10-325 mg (oxyCODONE-Acetaminophen 10-325 mg) 1 Each Tablet 1-2 TAB PO Q4H PRN PRN For Pain Prescribed by: AMY GUPTA MD Followup Plan Disposition: Home Follow-up plan 1. Followup with primary care provider in 4-7 days Discharge Diet: Low fat, Low Sodium, Heart Healthy Discharge Activity: No restrictions Patient Instructions Seek immediate medical attention if any new or worsening signs or symptoms occur. Follow-up Provider: Supa Alegria DO Time spent 35 min copies to: Supa Alegria Masoud Dec 18, 2016 17:09
--- NOTE | 2016-12-18 17:10 | NUR ---
Discharge The pt discharged off the unit at 1700. He left with all his belongings, and his packet of discharge information including all scripts. The pt verbalized understanding of all educational material presented. The pt left the unit on his personal scooter, and is being transported home via private vehicle driven by his son. The pt left the unit with stable vitals, and was A&O x3 at the time of discharge.
== END 2016-12-18 17:00 | disposition home or self-care (01) | DRG 603 ==
LOC: SED 20:04 → OSC 22:45
PROVIDERS: ADMIT Internal Medicine; ATTEND Internal Medicine
DX: L03.116 Cellulitis of left lower limb (principal); Z68.45 Body mass index [BMI] 70 or greater, adult; E66.01 Morbid (severe) obesity due to excess calories; I10 Essential (primary) hypertension; E11.9 Type 2 diabetes mellitus without complications; G89.29 Other chronic pain; M79.7 Fibromyalgia; G47.33 Obstructive sleep apnea (adult) (pediatric); F41.8 Other specified anxiety disorders; M06.9 Rheumatoid arthritis, unspecified; B95.0 Streptococcus, group A, as the cause of diseases classified elsewhere

== ENCOUNTER 2017-01-13 19:36 | Inpatient (IN) | payer MEDICARE, MEDICAID ==
[~2017-01-13] VITALS: Ht 180.3 cm; Wt 269.9 kg
[~2017-01-13 19:36] MED LIST changes: -AMOX875T2 PO; -LACT1CAP73 PO; -METF500T4 PO; -OXYC20TA4 PO
[2017-01-13 19:51] VITALS: BP 173/94; PULSE 86; RESP 22; O2SAT 97
--- NOTE | 2017-01-13 21:31 | ED.REPORT ---
HPI-Rash / Abscess Date of Service Jan 13, 2017 ED Provider: Clark Sam MD Pt is a 41 year old male with a hx of HTN and cellulitis presenting to the ED complaining of burning pain to both of his legs. He reports that 1 week ago he slipped on his deck and scraped the back of his left leg, and now reports edema to both legs, with darkening on the right greater than left. Associated symptoms include pain in both sides of the groin. Denies fever, nausea, vomiting , dysuria, SOB. Pt is on amoxicillin BID since he was discharged from the hospital last month, although he has not taken it today. Nursing Notes Stated Complaint: LEG & BACK PAIN Chief Complaint: Extremity Trauma Nursing Notes Reviewed: Yes ([employer], 2C2P not reconciled) Allergies: Coded Allergies: linezolid (Verified Allergy, Severe, Rash,Itching,, 07/25/14) Hives vancomycin (Verified Allergy, Severe, 12/13/16) Kidneys "shut down". Scheduled Amoxicillin (Amoxicillin) 500 Mg Tablet 1,000 MG PO TID Gabapentin (Gabapentin) 300 Mg Capsule 900 MG PO HS GABAPENTIN 900 MG PO TID BUT PATIENT JUST TAKES IT AT HS. Lisinopril (Lisinopril) 10 Mg Tablet 10 MG PO BID Sertraline HCl (Sertraline) 100 Mg Tablet 150 MG PO DAILY Scheduled PRN oxyCODONE-Acetaminophen 10-325 mg (oxyCODONE-Acetaminophen 10-325 mg) 1 Each Tablet 1-2 TAB PO Q4H PRN PRN For Pain General Time Seen by MD: 21:16 Chief Complaint Tender/swollen area Hx Obtained From: Patient Arrived By: Wheelchair Onset Occurred: Just prior to arrival Symptom Duration: Since onset Location: : Lower extremity Quality: Burning, Painful Severity: Current: Severe Severity: Maximum: Severe Associated with: Reports Leg swelling, Denies Fever, Denies Nausea, Denies Vomiting Recent Healthcare: Recent doctor visit, Recent hospitalization Similar Sx Previous: Yes Past Medical History Past Medical History Notes: Last admit: December 13 of December 182016 with acute group a strep infection of the lower extremity and sepsis, treated with Ceftrolineand discharged a few amoxicillin Patient with multiple admissions for cellulitis, 10/2016 was admission prior to 11/2015 Past Medical History 1. Recurrent cellulitis right lower extremity, also hx of abdominal cellulitis 2. Severe lymphedema of right lower extremity greater than left. 3. Severe Morbid obesity. 4. Hypertension. 5. Chronic pain with narcotic dependence. 6. Seasonal allergies. 7. Obstructive sleep apnea. CPAP intolerant. 8. Fibromyalgia. Arthritis Depression/Anxiety No hx of MRSA Past Surgical History Hernia repair Reports: Cholecystectomy Smoking History Never Smoker Social History Uses mobility scooter Alcohol Use: Denies alcohol use Drug Use: Denies drug use Other Social History: Ambulatory Status Independent Review of Systems Constitutional: Denies: Fever Respiratory: Denies: Shortness of breath GI: Denies: Nausea, Vomiting Musculoskeletal: Reports: Extremity pain, Extremity swelling Skin: Reports Rash, Reports Swelling Complete sys rev & neg: except as marked. Male: Denies Dysuria Physical Exam Initial Vital Signs Vital Signs (First) Date Time Temp Pulse Resp B/P Pulse Ox O2 Delivery O2 Flow Rate FiO2 01/13/17 19:51 36.9 86 22 173/94 97 Room Air Initial VS: Reviewed, Vital signs abnormal (mod HTN) Head / Eyes: Atraumatic, Normocephalic, PERRL ENT: Mucous membranes moist, Conjunctiva normal, No scleral icterus Neck: Supple, Non-tender, Full range of motion Respiratory: Breath sounds normal, Clear to auscultation, No respiratory distress Cardiovascular: Regular rate & rhythm, Heart sounds normal, Intact distal pulses Neurologic: Alert, Oriented, Nonfocal Psychiatric: Mood/affect normal, Behavior normal, Normal thought content General/Constitutional: Awake, Alert, No acute distress Appearance / Presentation: Positive: Obese, morbidly Skin: Warm, Dry Hot left leg, wound on back of calf. Lower Extremity / Pelvis / MS: Atraumatic, Neurologic intact, Vascular intact Legs tender. Skin indurated which seems chronic. Good pulses. No gas or crepitus, no findings suggestive of an abscess. Interpretation & Diagnostics Lab Results Interpretation Result Diagram: 01/13/17214901/13/172149 Test 01/13/17 21:31 01/13/17 21:50 01/13/17 22:20 Urine Color Yellow (YELLOW) Urine Appearance Hazy (CLEAR,HAZY) Urine pH 6.0 (5.0-8.0) Urine Specific [place] 1.025 (1.003-1.035) Urine Protein 100mg/dL (NEG,TRACE) Urine Glucose (UA) Negativemg/dL (NEGATIVE) Urine Ketones Negativemg/dL (NEGATIVE) Urine Occult Blood Large (NEGATIVE) Urine Nitrite Negative (NEGATIVE) Urine Bilirubin Negative (NEGATIVE) Urine Urobilinogen Normalmg/dL (NORMAL) Urine Leukocyte Esterase Negative (NEGATIVE) Urine RBC >50/hpf (0-2) Urine WBC 0-5/hpf (0-5) Urine Epithelial Cells Occasional/hpf (NONE-MOD) Urine Crystals Amorphous urates (NONE Urine Bacteria Moderate/hpf (NONE-FEW) Urine Hyaline Casts None/lpf (NONE) Urine Granular Casts None seen (NONE SEEN) Urine Waxy Casts None seen (NONE SEEN) Urine Red Blood Cell Casts None seen (NONE SEEN) Urine White Blood Cell Casts None seen (NONE SEEN) Urine Mucus Present (None Seen) Urine Trichomonas None seen (NONE SEEN) Urine Yeast None (NONE SEEN) Urinalysis Comment None Urine Culture Reflexed Indicated White Blood Count 9.9th/mm3 (3.8-10.1) Red Blood Count 4.55mil/mm3 (4.40-5.80) Hemoglobin 12.0g/dL (13.8-17.2) Hematocrit 37.5% (41.0-50.0) Mean Corpuscular Volume 82.4fL (81-100) Mean Corpuscular Hemoglobin 26.4pg (27.0-35.0) Mean Corpuscular Hemoglobin Concent 32.0% (32.0-37.0) Red Cell Distribution Width 14.3% (12.3-15.4) Platelet Count 305bil/L (150-400) Neutrophils (%) (Auto) 66.0% (40-74) Lymphocytes (%) (Auto) 22.8% (14-46) Monocytes (%) (Auto) 9.2% (4-12) Eosinophils (%) (Auto) 1.6% (0-5) Basophils (%) (Auto) 0.2% (0-3) D-Dimer 0.7mg/L (<0.50) Sodium Level 139mEq/L (134-144) Potassium Level 3.7mEq/L (3.5-5.2) Chloride Level 102mEq/L (97-108) Carbon Dioxide Level 25mmol/L (18-29) Blood Urea Nitrogen 13mg/dL (6-24) Creatinine 0.98mg/dL (0.76-1.27) Estimat Glomerular Filtration Rate 89mL/min (>59) Glucose Level 104mg/dL (60-99) Lactic Acid Level 1.4mmol/L (0.4-2.0) Calcium Level 8.9mg/dL (8.5-10.1) Total Bilirubin 0.2mg/dL (0.0-1.2) Aspartate Amino Transf (AST/SGOT) 20U/L (0-50) Alanine Aminotransferase (ALT/SGPT) 17U/L (0-44) Alkaline Phosphatase 61U/L (25-150) Total Protein 8.0g/dL (6.4-8.4) Albumin 3.4g/dL (3.4-5.0) Hold Estrada Top Tube Received (Received) Lab Results Interpretation: CBC normal CMP normal D-dimer markedly elevated Re-Eval/Medical Decision Med Decision/Clinical Course This is a morbidly obese 41-year-old male with history of recurrent lower extremity cellulitis with a multitude of admissions for same. He is now on daily amoxicillin as a suppressive therapy. He suffered abrasion to the back of his left calf a few days ago and the bowels developed redness and pain identical in character to previous episodes of cellulitis. He has not spiked a fever yet-but has a history of frequent sepsis is resolved. We will, he is morbidly obese, there is a wound on the back of his left and abrasion, there are no signs of crepitus, foreign body, abscess, but the whole calf is tender and warm. Some chronic changes from the habitus making erythema little bit more difficult to determine, but again the leg certainly does appear infected. The patient does have intact cap refill with no evidence of inadequate perfusion distally. An IV was placed, 5 work was obtained was normal except for marginally elevated d-dimer which is obtained and attempt to try and avoid repeat ultrasound, but at this point an ultrasound will be obtained-the day performing multiple other studies revealed a moderate delay. I am not finding indications given his otherwise normal vitals that have a high probability for suspicion since had minimal numerous ultrasounds, all of which are negative and no hard findings to suggest a DVT and need for emergent anticoagulation. Review the records as indicated that for staph and strep coverage in this setting the ID physician is recommended cephalosporin therapy, and this is been ordered. he received titrated pain medicines. Although he is less ill and not floridly septic, his symptoms and findings are extensive enough that parenteral therapy is indicated, and the case and this is occurring while the patient is on oral amoxicillin. The patient case is discussed with the admitting hospitalist Source of Hx: Old records Re-Evaluation/Progress : Time of Eval: 22:41 Patient Status: Condition improved Re-Evaluation/Progress Note: Discussed plan for admission. Pt understands and agrees with plan. All pt questions addressed. Consultation : Referral / Consult Name: Neptali Thakur MD Consulted With: Hospitalist Call Returned at: 22:40 Slot Shift Manager: Will see patient, Agrees with plan, Accepts admit Differential Diagnosis: Positive: Cellulitis (LLE), Negative: AIDS/HIV, Abscess, Allergic reaction, Anorectal abscess, Erythema multiforme, Gangrene, Hand, foot, mouth disease, Henoch-Schonlein purpura, Kawasaki's disease, Osteomyelitis, Pediculosis (lice), Scarlet fever Counseled Regarding: Diagnosis, Lab results, Need for follow-up, When/why to return to ED Discharge & Departure Impression: Primary Impression: Cellulitis Site of cellulitis: extremity Site of cellulitis of extremity: lower extremity Laterality: left Qualified Code: L03.116 - Cellulitis of left lower limb Additional Impressions: HTN (hypertension) Hypertension type: essential hypertension Hypertension goal: unspecified goal Qualified Code: I10 - Essential (primary) hypertension Hematuria Morbid obesity with BMI of 70 and over, adult Disposition: ADMITTED TO HOSPITAL Discharge Condition All VS Reviewed: Yes Condition: Improved Referrals: Derek Castro MD (PCP) Geoff Attestation Portions of this note were transcribed by Liliana Garduno. I, Dr. Sam personally performed the history, physical exam and medical decision-making; I reviewed and confirmed the accuracy of the information in the transcribed note. Signed by: Geoff House, 01/13/2017 and 2241. copies to: Derek Castro MD, Matthew F MD Jan 13, 2017 21:31 LILIANA GARDUNO Jan 13, 2017 21:37
[2017-01-13] MEDS ORDERED: Ondansetron 2 mg/mL 2 mL Inj IVPUSH ONE (21:35)
[2017-01-13] MEDS ORDERED: HYDROmorphone 1 mg/mL Inj IM ONE (21:35)
[2017-01-13] MEDS ORDERED: 0.9% Sodium Chloride 1,000 ML IV ONE (21:35)
[2017-01-13] MEDS ORDERED: Ceftaroline Inj 600 MG in Dextrose 5% 250 ML IV ONE (21:35)
[2017-01-13 21:59] LABS: BASOPHILS % (AUTO) 0.2 % (0-3); EOSINOPHILS % (AUTO) 1.6 % (0-5); MONOCYTES % (AUTO) 9.2 % (4-12); Mean Corpuscular Hemoglobin 26.4 pg (27.0-35.0); Mean Corpuscular Volume 82.4 fL (81-100); Platelet Count 305 bil/L (150-400)
[2017-01-13] MEDS: HYDROmorphone 0.5 mg/0.5 mL iSecure Syringe IVPUSH PRN ×3 (22:11→23:00)
[2017-01-13 22:18] LABS: APPEARANCE,URINE HAZY (CLEAR,HAZY); COLOR,URINE YELLOW (YELLOW); OCCULT BLOOD,URINE LARGE (NEGATIVE); UROBILINOGEN,URINE NORMAL (NORMAL)
[2017-01-13] MEDS ORDERED: Bacitracin Ointment Packet TOPICAL ONE (22:20)
[2017-01-13 22:36] VITALS: BP 133/73; PULSE 85; RESP 20; O2SAT 94
[2017-01-13] MEDS ORDERED: GABA600T2 PO (22:48)
[2017-01-13] MEDS ORDERED: OXYC5TAB72 PO (22:53)
[2017-01-13] MEDS ORDERED: LOPE2CAP PO (22:54)
[2017-01-13] MEDS ORDERED: ACET325T51 PO (22:54)
[2017-01-13] MEDS ORDERED: 0.9% Sodium Chloride 1,000 ML IV SCH (23:28)
[2017-01-13] MEDS ORDERED: Alum-Mag Hydrox-Simeth 30 mL Suspension PO PRN (23:30)
[2017-01-13] MEDS ORDERED: Ondansetron 2 mg/mL 2 mL Inj IVPUSH PRN (23:30)
[2017-01-13] MEDS ORDERED: Polyethylene Glycol (PEG) 17 Gm Powder PO PRN (23:30)
[2017-01-13 23:59] VITALS: BP 133/73; PULSE 85; RESP 20; O2SAT 94
[2017-01-14] VITALS (7 sets, daily range): BP systolic 129–163; BP diastolic 74–81; PULSE 77–92; RESP 20–22; O2SAT 93–96
[2017-01-14] MEDS: HYDROmorphone 0.5 mg/0.5 mL iSecure Syringe IVPUSH PRN ×8 (00:29→20:50)
[2017-01-14] MEDS: Heparin 5,000 Unit/mL Inj SUBQ SCH ×3 (00:52→16:47)
--- NOTE | 2017-01-14 00:55 | PCM.HPMED ---
Subjective Date of Service Jan 13, 2017 Primary Provider: Admitting Physician: Neptali Thakur MD Primary Care Physician: Supa Alegria DO Attending Physician: Neptali Thakur MD Admit Status: From the Emergency Department Chief Complaint: left lower extremity cellulitis History of Present Illness: 41-year-old male with history of extreme obesity with BMI of 80.9, recurrent cellulitis of lower extremities, lymphedema and venous insufficiency presented to the ER with complaint of left lower extremity pain secondary to abrasion. Patient reports that he was recently discharged from the hospital approximately one month ago for a very similar cellulitis on his left lower extremity. Patient states that last week when getting up off of his porch he scraped the posterior side of his leg on some steps. He reports that initially the wound was slightly painful but that he did not feel it was very significant. Patient reports that on Thursday he began having groin tenderness, which she states is often the first sign of cellulitis for him. Patient reports that his left lower extremity began becoming more erythematous edematous , painful and warm to the touch. Patient reports a burning sensation in his left lower extremity that has been worsening each day. Patient reports that currently his pain is 5 out of 10 with the pain medication. Patient states that he has been taking the amoxicillin prescribed to him since discharge at the end of November. Patient reports that he has been experiencing chills, fever , tenderness to his left lower extremity and left inguinal area. Patient denies any chest pain, shortness of breath, nausea, vomiting, diarrhea. Patient denies any dysuria, but reports chronic hematuria. In the ER patient had a temperature 36.9, pulse 86, respiratory rate 22, blood pressure 173/94, pulse ox 97 on room air. Review of Systems: A comprehensive review of systems was conducted with the patient and found to be negative except as above in the History of Present Illness. Allergies Coded Allergies: linezolid (Verified Allergy, Intermediate, Hives, rash, itching, 01/13/17) vancomycin (Verified Adverse Reaction, Intermediate, "Kidneys Shut Down", 01/13/17) Home Medications At time of discharge on 12/18/16: Amoxicillin 1000mg 3 times a day Gabapentin 900 mg daily at bedtime Lisinopril 10 mg twice a day Sertraline 50 mg daily Oxycodone-acetaminophen 10/325 one to 2 tablets by mouth every 4 when necessary pain Oxycodone 20 mg by mouth 4 times a day when necessary PMH Super morbid obesity with BMI of 80.9 Recurrent cellulitis and soft tissue infections of the lower extremities Lymphedema of the lower extremities Venous insufficiency of the lower extremities Hypertension Fibromyalgia Cardiac arthritis Chronic back pain Depression/anxiety Obstructive sleep apnea Rheumatoid arthritis Surgical History Cholecystectomy Hernia repair Family History Diabetes Rheumatoid arthritis Hypertension Cancer No history of TB Social History Occupation: disabled Hx Alcohol Use: No Hx Substance Use: No Hx Tobacco Use: No Smoking Status: Never Smoker Living Arrangement: with Family Exam Vital Signs Vital Sign - Last Date Time Temp Pulse Resp B/P Pulse Ox O2 Delivery O2 Flow Rate FiO2 01/13/17 22:36 36.8 85 20 133/73 94 Room Air Exam General: Extremely obese male lying in bed. Appears in pain and uncomfortable. appropriately interactive HEENT: Normocephalic, atraumatic. External ears without defect. Pupils equal, round, and reactive to light and accommodation. Moist conjunctivae. Oropharynx with moist mucosa. Neck: Supple with full range of motion.No lymphadenopathy Cardiovascular: ( Distant heart sounds) Regular rate and rhythm with no murmurs , rubs, or gallops appreciated Pulmonary: Auscultated anteriorly-limited due habitus.clear to auscultation bilaterally with no crackles, wheezes, or rhonchi. Normal respiratory effort with no use of accessory muscles. Abdomen: Large pannus. Bowel tones present. Soft, nontender, nondistended. Extremities: Bilateral lower extremities----Evidence of chronic venous stasis changes , thickening of skin, very dry skin. Bilateral severe lymphedema.Both lower extremities tender to palpation Skin: Abrasion noted on posterior side of left lower extremity.No warmth noted on palpation. Psychiatric: Normal mood and affect. Alert and oriented to person, place, and time. Lymph: Lymphadenopathy palpated on left inguinal region, these were also tender to palpation Lab and Diagnostics Result Diagram: 01/13/17214901/13/172149 Assessment & Plan Acute on chronic cellulitis of left lower extremity, present on admission, ongoing -Pt discharged from [facility] on 12/18/2016 for cellulitis -Pt has been taking Amoxicillin daily since discharge -No leukocytosis on admission. Afebrile and hemodynamically stable. -Lactic acid normal at 1.4, not trending this value -IVF NS 100mls/hr -Dilaudid available for pain medication -Pt started on Ceftaroline in ER -We will continue treatment with Ceftaroline, until cultures available -Ddimer elevated in ER, US ordered to rule out DVT---pending -Blood cultures pending -ASO pending -MRSA screen pending -Procalcitonin pending -Recommend ID( Dr Eddy) Consult given history of recurrent infections Extreme obesity with BMI of 80.9, present on admission, ongoing -Bariatric bed for patient Chronic hypertension, present on admission, ongoing -Once medication reconciliation is completed, we will restart home medications Depression, present on admission, ongoing -Once medication reconciliation is completed, we will restart home medications ENEDINA, , present on admission, ongoing -Monitor pulse oximetry -Pt to does not use CPAP at home, if needed consider use here PCP: Dr Supa Alegria Code: Full DVT: Heparin q 8h Patient is admitted under inpatient status with expected length of stay greater than 2 midnights due to severity of presenting symptoms, risk of adverse event, and complexity of treatment plan. Pain Evaluation: Adequate Pain Control VTE Prophylaxis: Sub-Q Heparin (Unfractionated) Resuscitation Status: CPR: Attempt Resuscitation Attending Statement The patient was seen and examined together with Dr. Hylton on 01/13 and I agree with the history, exam and plan as outlined in the note above. copies to: Supa Alegria Tara L DO Jan 14, 2017 00:54 Neptali Thakur MD Jan 14, 2017 01:16
--- NOTE | 2017-01-14 05:04 | NUR ---
Admit to room 3011 @00:15 with LE cellulitis and elevated d-dimer. VSS with O2 sat 94 on RA. Pain 8/10 with skin tear on Left calf dressed and wrapped with gauze. Oriented to room and poc on whiteboard. Currently resting on JumpStart[facility] Bariatric bed. A&Ox3.
--- NOTE | 2017-01-14 05:13 | NUR ---
Med Rec Completed in ED and with recent admits. List provided in ED didn't make it to floor. Will pass on to day shift to have another brought in to verify accuracy.
[2017-01-14 06:22] LABS: BASOPHILS % (AUTO) 0.3 % (0-3); EOSINOPHILS % (AUTO) 2.5 % (0-5); MONOCYTES % (AUTO) 7.9 % (4-12); Mean Corpuscular Hemoglobin 26.3 pg (27.0-35.0); Mean Corpuscular Volume 84.1 fL (81-100); Platelet Count 271 bil/L (150-400)
[2017-01-14] MEDS: Ceftaroline Inj 600 MG in Dextrose 5% 250 ML IV SCH ×2 (08:24→20:58)
--- NOTE | 2017-01-14 10:35 | DRSVH ---
PROCEDURE: US VENOUS LEG DUPLEX BILATERAL INDICATIONS: leg pain, swelling + dimer TECHNIQUE: Real-time imaging, as well as color and pulse Doppler interrogation, were performed of the deep veins of both legs from the inguinal ligament to the popliteal fossa. COMPARISON: None. FINDINGS: The deep veins are normally compressible, and free of intraluminal thrombus. Color and pu lse Doppler demonstrate normal phasic intravascular flow. There is normal augmentation response to d istal compression maneuver. Of note, the right distal superficial femoral vein is suboptimally visua lized. IMPRESSION: No deep venous thrombosis identified within the right lower extremity. Dictated by: Kody Maria [facility] Interpreted: Tom Grossman MD on 01/14/2017 at 10:33 Transcribed by: KUNAL on 01/14/2017 at 10:34 Approved by: Tom Grossman M.D. on 01/14/2017 at 17:45
--- NOTE | 2017-01-14 10:59 | CONS ---
[address] [address] CONSULTATION REPORT PATIENT: PO DELGADO : 1975 MR#: [id number] ADMIT: 01/13/2017 JOB ID: [id number] DATE OF SERVICE: 01/14/2017 INFECTIOUS DISEASE CONSULTATION: I thank Dr. Hylton for this timely consult. REASON FOR CONSULT: Recurrent cellulitis, now involving left lower extremity. HISTORY OF THE PRESENT ILLNESS: Recall that this is a gentleman well known to me and this facility from multiple admissions occurring over the past year or two. The patient suffers from super morbid obesity with BMI in the 80 to 85 range and a weight of approximately 600 pounds. He has been admitted numerous times for soft tissue infections over the past year and this is related to the fact he has severe bilateral lymphedema and venous insufficiency secondary to his massive weight. He also suffers from obstructive sleep apnea. The patient was last in the hospital in November and at that time, he had a streptococcal cellulitis of his left lower extremity. He was treated aggressively on an inpatient basis and then discharged much improved on December 18 on high-dose amoxicillin. He finished the high-dose amoxicillin treatment regimen and then switched to amoxicillin 500 b.i.d. for prophylaxis in an attempt to prevent recurrent streptococcal soft tissue infections. The patient tells me this was going along pretty well until just about one week ago when on or about the 08 of January he was sitting with his spouse on the porch and accidentally slipped and scraped the back side of his left leg. Initially, this was a bit painful but over the coming days it became obvious he was developing an infection as the area swelled considerably and became more and more tender. Eventually, he developed fevers and chills, which led him to seek evaluation here. He also noticed that he had some tenderness in his left groin which is common when he has lower extremity infections, as he gets swelling or inflammation of the appropriate lymph nodes in the inguinal and femoral region. Just yesterday was the first day he had kim fever and chills. This was not associated with any shortness of breath, however, chest pain, cough, or GI symptoms. He presented to the hospital and was admitted yesterday with the fevers, chills and increasing tenderness and swelling of his left posterior calf. PAST MEDICAL HISTORY: 1. Super morbid obesity with BMI about 85. 2. Recurrent soft tissue infections of the lower extremities with several admissions in the past year alone. 3. Lymphedema and venous insufficiency of the lower extremities. 4. Hypertension. 5. Fibromyalgia. 6. Back pain. 7. Depression. 8. Obstructive sleep apnea. SOCIAL HISTORY: The patient currently cannot work because of back pain and his super morbid obesity. 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 He does not smoke or drink, and lives with his and three kids. FAMILY HISTORY: Negative for tuberculosis in his parents and siblings. REVIEW OF SYSTEMS: Done. The patient states he has a minimal headache but no visual complaints. No sores in the mouth, sore throat, or trouble swallowing. No cough, shortness of breath, or chest pain. No abdominal pain, nausea, vomiting, or diarrhea. No urgency, frequency, or dysuria. Back pain continues which is chronic for him and, of course, he has the pain in the left lower extremity. Remainder of the review of systems is negative. PHYSICAL EXAMINATION: Reveals a gentleman who is in no acute distress. Temperature 36.4, and he has been afebrile since his admission last night. Pulse 92, respiratory rate 20, blood pressure 148/77. He is saturating well on room air. Examination of the mental status reveals it is clear. The head is without trauma. Eyes without conjunctivitis or scleral icterus. Oral cavity without thrush or hairy leukoplakia. Neck really cannot be examined due to his level of obesity. Lungs are relatively clear, though, of course, breath sounds are distant. Cardiac tones: Regular rate and rhythm without murmur but again, these are very distant cardiac tones. Abdomen is massive, soft and nontender with a large pannus, which appears free of panniculitis. Cannot really examine the patient's groin, as the pannus overlies the area. The extremities are notable for severe changes of chronic venous insufficiency and lymphedema with an almost elephant-like texture to the skin over both lower extremities. The left lower extremity below the knee posteriorly has a large abrasion present, and the surrounding area which involves essentially the entire posterior calf region is warm and quite tender to touch. This is not true on the right. The left foot is not involved with this process. Neurologically, the patient is completely intact, has good motor strength. Peripheral pulses are difficult to appreciate due to his obesity but he has capillary refill in both feet which is reasonable. The remainder of the exam is unremarkable. LABORATORIES: Include white count 7700, with completely normal diff. Creatinine is 1.07. LFT are normal. Procalcitonin is negative at less than 0.1. Urinalysis with 0-5 white cells but greater than 50 red cells and note that on the last three admissions actually, his urine has been packed with red cells for unclear reasons. Micro includes negative blood cultures from admission, urine culture and MRSA screen pending. Note that his MRSA screen from last month's admission was negative, and he has not grown MRSA on any of his prior admissions. Venous duplex study of the left lower extremity was done during the night when he was admitted but has not yet been interpreted. IMPRESSION: This is an incredibly unfortunate gentleman with a body mass index 83 today, weight 270 kg who has had many admissions over the last year or two for recurrent soft tissue infections of the lower extremities. Obviously, his weight of 600 pounds with chronic lymphedema and venous insufficiency predispose him to these very severe recurrent soft tissue infections. I am really unaware of how we can prevent this from continuing indefinitely other than through massive weight loss and I have recommended this to the patient, as well as to his primary care provider in my notes of last admission. I do not think without a weight loss of 200 or 300 pounds that the patient will be able to avoid just an indefinite series of monthly admissions for severe cellulitis. I had hoped that the b.i.d. amoxicillin would keep him out of the hospital, as this would at least diminish the risk of a beta hemolytic streptococcal infection but it seems not to have been the case. Perhaps the dose is inadequate, given his size. RECOMMENDATIONS: 1. I agree for now with the ceftaroline which has been prescribed. 2. We await the MRSA screen and if it is negative, we can narrow our antibiotic focus to ceftriaxone tomorrow. 3. This case discussed in person with the Primary team. 4. Repeating his ASO titer will probably not be of value, as it has been elevated on the October and November admissions, and will likely just continue to be elevated and hard to interpret. 5. I will see this patient again tomorrow. Thank you for this consultation.
--- NOTE | 2017-01-14 12:29 | NUR ---
Social Work: Initial Assessment Data: Pt is a 41 y/o male admitted for LLE cellulitis. Pt's PCP is Dr Alegria, pt's insurance is Group health Medicare, [facility] supp. EMR reviewed. Readiness for d/c is 5, high. HOOP CUTTER met with pt at bedside, role explained. Pt sates he lives in [place] with his and 2 adult children. Pt states he has 3 stairs to enter the home which he can climb. Pt has power chair that he uses most of the time. Pt states that he has no hx of HH or SNF, no LTC or VA benefits, and is not a caregiver. Pt state he has no AD/DPOA, accepted info offered by HOOP CUTTER. Pt states he needs compression bandages for his legs for home, HOOP CUTTER will inquire with MD about this. HOOP CUTTER will also continue to follow for possible IVABX need at d/c. Assessment: Pt with powerchair at baseline. Plan: Pt will d/c home via POV with family when medically stable. Pt states he needs compression bandages for his legs for home, HOOP CUTTER will inquire with MD about this. HOOP CUTTER will also continue to follow for possible IVABX need at d/c. SÚAL Odell Addendum: 01/14/17 at 1232 by DEV ROMERO Amended: Links added.
--- NOTE | 2017-01-14 17:30 | NUR ---
Wound Care 41 yo male with morbid obesity who is admitted with LLE cellulitis, pt reports scraping back of left calf on stair a week ago or so.Pt presents with an abrasion at posterior calf on his left which is 3 cm L x 4 cm W x 0.1 cm D, periwound skin is erythematous and painful to the touch. Pt has significant lymphedema Right > Left. Wound was cleaned with saline and gauze and an adhesive dressing was applied, this can be changed by nursing PRN. In the long run patient would benefit from adjustable compression wraps but these would be an out of pocket expense.
[2017-01-15] MEDS: Heparin 5,000 Unit/mL Inj SUBQ SCH ×3 (01:00→15:21)
[2017-01-15] MEDS: HYDROmorphone 0.5 mg/0.5 mL iSecure Syringe IVPUSH PRN ×6 (01:03→22:25)
[2017-01-15 05:16] VITALS: BP 168/82; PULSE 75; RESP 20; O2SAT 96
--- NOTE | 2017-01-15 05:54 | NUR ---
Pain Control wants to try 20mg Roxicodone Q6 and hold taking the Dilaudid after 09:00 med pass. Currently taking 1.5mg Dilaudid Q4 and 10mg Roxicodone Q6. Dose range for Roxicodone is 10-20mg.
[2017-01-15 06:31] LABS: BASOPHILS % (AUTO) 0.3 % (0-3); MONOCYTES % (AUTO) 9.7 % (4-12); Mean Corpuscular Hemoglobin 26.3 pg (27.0-35.0); Mean Corpuscular Volume 84.2 fL (81-100); NEUTROPHILS % (AUTO) 63.4 % (40-74); Platelet Count 252 bil/L (150-400)
[2017-01-15 06:49] LABS: Magnesium 1.7 mg/dL (1.6-2.6)
[2017-01-15] MEDS: cefTRIAXone Inj 2,000 MG in Dextrose 5% Minibag Plus 50 ML IV SCH (11:08)
--- NOTE | 2017-01-15 12:03 | PCM.PNMED ---
Subjective Date of Service Jan 15, 2017 Subjective Patient stated that leg is less painful and warm Ceftaroline switched to ceftriaxone as MRSA screen neg per ID Exam Vital Signs Vital Sign - Last Date Time Temp Pulse Resp B/P Pulse Ox O2 Delivery O2 Flow Rate FiO2 01/15/17 05:16 36.5 75 20 168/82 96 Room Air Intake and Output 01/14/17 01/14/17 01/15/17 Cumulative From/Thru 15:00 23:00 07:00 01/13/17 19:51 - 01/14/17 20:30 Intake Total 608 ml 3409 ml 5817 ml Output Total 2425 ml 3150 ml Balance 608 ml 984 ml 2667 ml Intake Oral 2400 ml 3200 ml IV Total 608 ml 1009 ml 2617 ml Output Urine Total 2425 ml 3150 ml # Bowel Movements 0 0 IVs and Medications Medications Reviewed: Medications were reviewed in detail Lab and Diagnostics Result Diagram: 01/15/1760401/15/17 0605 Assessment & Plan Acute on chronic cellulitis of left lower extremity, present on admission, clinically improving with abx -Pt discharged from [facility] on 12/18/2016 for cellulitis -Pt has been taking Amoxicillin daily since discharge -No leukocytosis on admission. Afebrile and hemodynamically stable. -Lactic acid normal at 1.4, not trending this value -IVF NS 100mls/hr -Dilaudid available for pain medication -Pt started on Ceftaroline in ER, switched to CFX as MRSA neg, appreciate ID recs -Ddimer elevated in ER, US ordered to rule out DVT neg -Blood cultures pending Extreme obesity with BMI of 80.9, present on admission, ongoing -Bariatric bed for patient Chronic hypertension, present on admission, ongoing -Once medication reconciliation is completed, we will restart home medications Depression, present on admission, ongoing -Once medication reconciliation is completed, we will restart home medications ENEDINA, , present on admission, ongoing -Monitor pulse oximetry -Pt to does not use CPAP at home, if needed consider use here PCP: Dr Supa Alegria Code: Full DVT: Heparin q 8h dispo: likely in 1-2more days with oral agent, VTE Prophylaxis: Sub-Q Heparin (Unfractionated) VTE Mechanical Devices: Venous Foot Pump Resuscitation Status: CPR: Attempt Resuscitation Time spent 35min Ronel Sanchez MD Jan 15, 2017 11:54
--- NOTE | 2017-01-15 12:06 | NUR ---
Assumed Care: Assumed care of patient @ approx 1200. Left lower extremity burning pain 5/10 on pain scale. Patient medicated by previous RN prior to this assessment. Alert & oriented, denies shortness of breath. Requesting shower.
[2017-01-15 13:18] VITALS: BP 165/81; PULSE 91; RESP 20; O2SAT 93
--- NOTE | 2017-01-15 16:33 | PROG NOTE ---
[address] [address] PROGRESS NOTE PATIENT: PO DELGADO : 1975 MR#: [id number] ADMIT: 01/13/2017 JOB ID: [id number] DATE: 01/15/2017 INFECTIOUS DISEASE FOLLOW UP NOTE: REASON FOR FOLLOWUP: Severe left lower extremity cellulitis in a super morbidly obese gentleman. INTERVAL HISTORY: The patient reports he feels fine today except for the pain in his left lower leg which is confined to really his posterior calf area where he scraped his leg and subsequently developed an infection. He is currently afebrile and has been since admission. PHYSICAL EXAMINATION: Temperature 36.7, pulse 91, respiratory rate 20, blood pressure 165/81, saturating 93% on room air. Mental status is clear. Oral cavity negative. Lungs clear. Abdomen massively obese. Left lower extremity below the knee still with the excoriation which is partially covered now by a dressing and also just diffuse erythema, warmth and tenderness encompassing the superficial calf on the left. LABORATORIES: Include white count of 6900. Creatinine 1.09. LFTs are normal. Streptozyme strongly positive for 70. MRSA screen negative. Venous ultrasound without DVT. This likely represents a beta streptococcal infection. We have a negative MRSA screen and a positive ASO titer. The only thing to know with the ASO titer is that in October when he was here it was 450. It was 425 when he was here in November and now is 470. It could be that this is all as a result of some major strep infection which occurred in September or October as ASO titers can stay high for months, so we do not have any conclusive proof in this case it is group A strep though that seems like a reasonable guess. IMPRESSION: Severe cellulitis left lower extremity in a massively obese 600 pound gentleman with history of recurrent soft tissue infections. As stated above, the most likely organisms here are beta strep, though MSSA could certainly be playing a role. He seems to be slightly improved overnight on his current regimen which consists of just ceftriaxone. RECOMMENDATIONS: 1. I would continue ceftriaxone for at least several days until the patient is much improved. At that point, I think he could be discharged on oral antibiotics and a reasonable option here would be an oral cephalosporin such as Keflex or Cefdinir for a prolonged period of approximately two weeks or so. 2. We attempted chronic prophylaxis last time he was here and it seems not to have worked, though he did suffer some trauma which increased the risks. I might consider once again prophylaxis with amoxicillin, perhaps a g b.i.d. or so in total dose, in an attempt to forestall yet another recurrent admission. 3. As I have noted previously the only really answer to this is massive weight loss and I have strongly recommend to the patient that he consider exploring those options such as bariatric surgery. 4. I will be out of the [place] for the next 10 days and will, therefore, sign off this case at this point. I can be reached by E-mail through the [employer] E-mail if there are questions about this or any other case.
--- NOTE | 2017-01-15 17:56 | NUR ---
Case Management: IMM explained to patient and family at approximately 1730, all questions answered. Signed original in chart, pt given a copy. Pt then asked me if I could help him obtain Compression wraps as they are over $200 for each leg and he was unable to afford this. I informed him I would let the SW know--but after reading the APPEALS AND GENERALIST CLERK initial assessment, they are aware of this need already. Rebeka Anderson RN
[2017-01-15 21:10] VITALS: BP 151/82; PULSE 101; RESP 20; O2SAT 95
[2017-01-16] MEDS: Heparin 5,000 Unit/mL Inj SUBQ SCH ×3 (01:48→15:17)
[2017-01-16] MEDS: HYDROmorphone 0.5 mg/0.5 mL iSecure Syringe IVPUSH PRN ×6 (02:38→22:45)
[2017-01-16 05:23] VITALS: BP 150/91; PULSE 79; RESP 20; O2SAT 95
[2017-01-16 06:11] LABS: BASOPHILS % (AUTO) 0.4 % (0-3); EOSINOPHILS % (AUTO) 2.9 % (0-5); MONOCYTES % (AUTO) 9.2 % (4-12); Mean Corpuscular Hemoglobin 25.9 pg (27.0-35.0); Mean Corpuscular Volume 83.4 fL (81-100); NEUTROPHILS % (AUTO) 60.1 % (40-74); Platelet Count 258 bil/L (150-400)
[2017-01-16 06:37] LABS: Magnesium 1.9 mg/dL (1.6-2.6); Phosphorus 4.7 mg/dL (2.5-4.9)
[2017-01-16] MEDS ORDERED: 0.9% Sodium Chloride 250 ML ONE (07:31)
[2017-01-16] MEDS: cefTRIAXone Inj 2,000 MG in Dextrose 5% Minibag Plus 50 ML IV SCH (07:40)
--- NOTE | 2017-01-16 13:17 | PCM.PNMED ---
Subjective Date of Service Jan 16, 2017 Subjective pt feels better, less pain, ID recommended current tx longer duration Exam Vital Signs Vital Sign - Last Date Time Temp Pulse Resp B/P Pulse Ox O2 Delivery O2 Flow Rate FiO2 01/16/17 05:23 36.6 79 20 150/91 95 Room Air Intake and Output 01/15/17 01/15/17 01/16/17 Cumulative From/Thru 15:00 23:00 07:00 01/13/17 19:51 - 01/16/17 06:59 Intake Total 1200 ml 922 ml 600 ml 8539 ml Output Total 3375 ml 1850 ml 1875 ml 03811 ml Balance -2175 ml -928 ml -1275 ml -1711 ml Intake Oral 922 ml 600 ml 4722 ml IV Total 2617 ml TPN/PPN 1200 ml 1200 ml Output Urine Total 3375 ml 1850 ml 1875 ml 56219 ml # Bowel Movements 0 0 0 0 Exam marked obese, middle aged male MMM distant heart sound decreased BS bilaterally S,ND,NT,normoactive BS+ thick skin, warm tender LLE, sterily dressed IVs and Medications Medications Reviewed: Medications were reviewed in detail Lab and Diagnostics Result Diagram: 01/16/1745 01/16/1745 Assessment & Plan Acute on chronic cellulitis of left lower extremity, present on admission, clinically improving with abx -Pt discharged from [facility] on 12/18/2016 for cellulitis -Pt has been taking Amoxicillin daily since discharge -No leukocytosis on admission. Afebrile and hemodynamically stable. -Lactic acid normal at 1.4, not trending this value -IVF NS 100mls/hr -Dilaudid available for pain medication -Pt started on Ceftaroline in ER, switched to CFX as MRSA neg, likely Keflex for 2wks upon d/c per ID, amoxicillin bid for ppx afterwards -Ddimer elevated in ER, US ordered to rule out DVT neg -Blood cultures pending Extreme obesity with BMI of 80.9, present on admission, ongoing -Bariatric bed for patient Chronic hypertension, present on admission, ongoing -Once medication reconciliation is completed, we will restart home medications Depression, present on admission, ongoing -Once medication reconciliation is completed, we will restart home medications ENEDINA, , present on admission, ongoing -Monitor pulse oximetry -Pt to does not use CPAP at home, if needed consider use here PCP: Dr Supa Alegria Code: Full DVT: Heparin q 8h dispo: likely in 1-2more days with oral agent, VTE Prophylaxis: Sub-Q Heparin (Unfractionated) VTE Mechanical Devices: Venous Foot Pump Resuscitation Status: CPR: Attempt Resuscitation Time spent 35min Ronel Sanchez MD Jan 16, 2017 13:17
[2017-01-16 13:55] VITALS: BP 156/84; PULSE 81; RESP 20; O2SAT 93
--- NOTE | 2017-01-16 15:59 | NUR ---
Social Work: Readiness for d/c Data: Pt is on day 3 of hospitalization. EMR reviewed, pt discussed in rounds. MD states pt likely ready for d/c in 1-2 days. UR RN states she is looking into compression bandages or stockings for pt. No other d/c planning needs identified at this time. TRAFFIC INSPECTOR will continue to follow if needs arise. Assessment: Pt who is independent at baseline. Plan: Pt will d/c home via POV with family when medically stable, in likely 1-2 days. UR RN looking in compression stockings or bandages. TRAFFIC INSPECTOR will continue to follow. SAÚL Odell
--- NOTE | 2017-01-16 16:07 | NUR ---
Case Management: Patient requesting compression hose prior to dc. Reviewed wound consult notes. Compression hose were not recommended, adjustable compressing dressings were recommended and can be purchased OTC. Discussed with PAULA. [email or web address]>
[2017-01-16 20:59] VITALS: BP 159/89; PULSE 90; RESP 20; O2SAT 93
[2017-01-17] MEDS: Heparin 5,000 Unit/mL Inj SUBQ SCH ×2 (00:11→09:25)
[2017-01-17 04:27] VITALS: BP 166/84; PULSE 80; RESP 20; O2SAT 96
--- NOTE | 2017-01-17 05:56 | NUR ---
Oxygen Pt placed on 1L via nasal cannula while sleeping. R/T o2 Sat% dropping into the 85-low 90 range frequently while asleep because of ENEDINA. With 1L o2 remained in the mid 95-98 %range while sleeping. Addendum: 01/17/17 at 0559 by DUSTIN CADENA Amended: Links added.
[2017-01-17] MEDS: HYDROmorphone 0.5 mg/0.5 mL iSecure Syringe IVPUSH PRN (06:15)
[2017-01-17 07:57] LABS: BASOPHILS % (AUTO) 0.2 % (0-3); EOSINOPHILS % (AUTO) 3.6 % (0-5); Mean Corpuscular Hemoglobin 26.2 pg (27.0-35.0); Mean Corpuscular Volume 79.6 fL (81-100); NEUTROPHILS % (AUTO) 62.9 % (40-74); Platelet Count 271 bil/L (150-400)
[2017-01-17 08:38] LABS: Magnesium 1.7 mg/dL (1.6-2.6)
--- NOTE | 2017-01-17 09:00 | NUR ---
MEETA signed. SAÚL Tobar
[2017-01-17] MEDS: cefTRIAXone Inj 2,000 MG in Dextrose 5% Minibag Plus 50 ML IV SCH (09:25)
[2017-01-17] MEDS ORDERED: CEPH-512 PO (10:40)
--- NOTE | 2017-01-17 10:51 | PCM.DIMED ---
Discharge Instructions Date of Service Jan 17, 2017 Dates of Hospitalization Jan 13, 2017 at 22:56 Discharge Diagnosis Discharge Diagnosis Recurrent lower leg cellulitis in the setting of superficial wound, obesity Medication Instructions Please continue to take Keflex for 14days, then continue to take Amoxicillin for prophylaxis Diet No restrictions Patient Instructions You were hospitalized with soft tissue infection in your leg, likely triggered by your scratches. Please note that you can do daily dressing, recommended by Wound Care Service. Please follow medicine instruction as above Please continue the process for bariatric surgery as scheduled Follow-up plan Please follow up with your PCP in 2weeks Follow-up Provider: Derek Castro MD Follow-up with PCP in: 2 weeks Ronel Sanchez MD Jan 17, 2017 10:43
--- NOTE | 2017-01-17 12:32 | NUR ---
Social Work-discharge: Data:EMR Reviewed. Pt is on day 4 of hospitalization for LLE cellulitis per H&P. Pt is medically stable to discharge. SW followed up with pt at bedside, SW role explained. Pt confirms his family will be providing transport home at discharge. MD has switched pt from IV abx to oral abx. Wound care states" In the long run patient would benefit from adjustable compression wraps but these would be an out of pocket expense", which pt is aware of. No discharge needs identified. All updated and agreeable to plan. Assessment:Pt who is independent at baseline. Plan:Pt to discharge home today via POV. No discharge needs identified. All updated and agreeable to plan. SAÚL Tobar
[2017-01-17] MEDS ORDERED: OXYC5TAB72 PO (13:02)
--- NOTE | 2017-01-17 13:53 | NUR ---
Discharge Patient departed unit via personal scooter, accompanied by and staff. Patient alert and oriented x3. Patient reporting decreased pain, and displaying adequate elimination and nutritional intake. Patient reporting follow up appointments for pain management, sleep study and bariatric surgery. Discharge instructions/medications reviewed with patient and prior to discharge. All questions addressed. Discharge instructions, patient belongings and prescriptions in hand.
--- NOTE | 2017-01-17 16:47 | PCM.DC.MED ---
Discharge Summary Date of Service Jan 17, 2017 Dates of Hospitalization Date of Hospital Admission Jan 13, 2017 at 22:56 Date of Discharge: Jan 17, 2017 Providers: Admitting Physician: Neptali Thakur MD Primary Care Physician: Supa Alegria DO Attending Physician: Neptali Thakur MD Diagnosis at Time of Discharge Diagnosis at Time of Discharge Recurrent lower leg cellulitis in the setting of superficial wound, obesity Extreme obesity with BMI of 80.9, Chronic hypertension, Depression, ENEDINA, Consultations Infectious disease Procedures Other Diagnostics PROCEDURE: US VENOUS LEG DUPLEX BILATERAL INDICATIONS: leg pain, swelling + dimer TECHNIQUE: Real-time imaging, as well as color and pulse Doppler interrogation, were performed of the deep veins of both legs from the inguinal ligament to the popliteal fossa. COMPARISON: None. FINDINGS: The deep veins are normally compressible, and free of intraluminal thrombus. Color and pulse Doppler demonstrate normal phasic intravascular flow. There is normal augmentation response to distal compression maneuver. Of note, the right distal superficial femoral vein is suboptimally visualized. IMPRESSION: No deep venous thrombosis identified within the right lower extremity. Dictated by: Kody Maria [facility] Interpreted: Tom Grossman MD on 01/14/2017 at 10: 33 Transcribed by: KUNAL on 01/14/2017 at 10:34 Approved by: Tom Grossman M.D. on 01/14/2017 at 17:45 Brief History HPI obtained by 41-year-old male with history of extreme obesity with BMI of 80.9, recurrent cellulitis of lower extremities, lymphedema and venous insufficiency presented to the ER with complaint of left lower extremity pain secondary to abrasion. Patient reports that he was recently discharged from the hospital approximately one month ago for a very similar cellulitis on his left lower extremity. Patient states that last week when getting up off of his porch he scraped the posterior side of his leg on some steps. He reports that initially the wound was slightly painful but that he did not feel it was very significant. Patient reports that on Thursday he began having groin tenderness, which she states is often the first sign of cellulitis for him. Patient reports that his left lower extremity began becoming more erythematous edematous , painful and warm to the touch. Patient reports a burning sensation in his left lower extremity that has been worsening each day. Patient reports that currently his pain is 5 out of 10 with the pain medication. Patient states that he has been taking the amoxicillin prescribed to him since discharge at the end of November. Patient reports that he has been experiencing chills, fever , tenderness to his left lower extremity and left inguinal area. Patient denies any chest pain, shortness of breath, nausea, vomiting, diarrhea. Patient denies any dysuria, but reports chronic hematuria. In the ER patient had a temperature 36.9, pulse 86, respiratory rate 22, blood pressure 173/94, pulse ox 97 on room air. Hospital Course acute problems 1. Recurrent cellulitis of left lower extremity, pt had another cellulitis despite suppressive tx, likely triggered by superficial wound he developed on top of marked obesity. Pt started on Ceftaroline based on previous hx of MRSA, then switched to Ceftriaxone as MRSA screen was neg. pt clinically responded well, HD stable, no sign of SIRS throughout, DVT study was negative. abx switched to Keflex to finish longer 2weeks course, then back to Amoxacillin bid for ppx afterwards. Given obesity as a underlying problems a/w recurrent cellulitis, pt was encouraged to follow up bariatric surg, which already set up as a outpt. chronic, stable Extreme obesity with BMI of 80.9, Chronic hypertension, Depression, ENEDINA, Exam Vital Signs (Last) Date Time Temp Pulse Resp B/P Pulse Ox O2 Delivery O2 Flow Rate FiO2 01/17/17 04:27 36.8 80 20 166/84 96 Nasal Cannula 1.00 Exam marked obese, middle aged male MMM distant heart sound decreased BS bilaterally S,ND,NT,normoactive BS+ thick skin, warm tender LLE, sterily dressed Test 01/13/17 00:27 01/13/17 21:31 01/13/17 21:50 01/13/17 22:20 Hemoglobin A1c 6.4% (4.8-5.6) Urine Color Yellow (YELLOW) Urine Appearance Hazy (CLEAR,HAZY) Urine pH 6.0 (5.0-8.0) Urine Specific [place] 1.025 (1.003-1.035) Urine Protein 100mg/dL (NEG,TRACE) Urine Glucose (UA) Negativemg/dL (NEGATIVE) Urine Ketones Negativemg/dL (NEGATIVE) Urine Occult Blood Large (NEGATIVE) Urine Nitrite Negative (NEGATIVE) Urine Bilirubin Negative (NEGATIVE) Urine Urobilinogen Normalmg/dL (NORMAL) Urine Leukocyte Esterase Negative (NEGATIVE) Urine RBC >50/hpf (0-2) Urine WBC 0-5/hpf (0-5) Urine Epithelial Cells Occasional/hpf (NONE-MOD) Urine Crystals Amorphous urates (NONE Urine Bacteria Moderate/hpf (NONE-FEW) Urine Hyaline Casts None/lpf (NONE) Urine Granular Casts None seen (NONE SEEN) Urine Waxy Casts None seen (NONE SEEN) Urine Red Blood Cell Casts None seen (NONE SEEN) Urine White Blood Cell Casts None seen (NONE SEEN) Urine Mucus Present (None Seen) Urine Trichomonas None seen (NONE SEEN) Urine Yeast None (NONE SEEN) Urinalysis Comment None Urine Culture Reflexed Indicated D-Dimer 0.7mg/L (<0.50) Lactic Acid Level 1.4mmol/L (0.4-2.0) Hold Estrada Top Tube Received (Received) Test 01/14/17 06:00 01/17/17 07:30 Procalcitonin 0.07ng/mL (0.00-0.08) Streptozyme 469.4IU/mL (0.0-200.0) White Blood Count 8.1th/mm3 (3.8-10.1) Red Blood Count 4.66mil/mm3 (4.40-5.80) Hemoglobin 12.2g/dL (13.8-17.2) Hematocrit 37.1% (41.0-50.0) Mean Corpuscular Volume 79.6fL (81-100) Mean Corpuscular Hemoglobin 26.2pg (27.0-35.0) Mean Corpuscular Hemoglobin Concent 32.9% (32.0-37.0) Red Cell Distribution Width 14.3% (12.3-15.4) Platelet Count 271bil/L (150-400) Neutrophils (%) (Auto) 62.9% (40-74) Lymphocytes (%) (Auto) 23.8% (14-46) Monocytes (%) (Auto) 9.0% (4-12) Eosinophils (%) (Auto) 3.6% (0-5) Basophils (%) (Auto) 0.2% (0-3) Sodium Level 139mEq/L (134-144) Potassium Level 4.2mEq/L (3.5-5.2) Chloride Level 99mEq/L (97-108) Carbon Dioxide Level 27mmol/L (18-29) Blood Urea Nitrogen 18mg/dL (6-24) Creatinine 1.10mg/dL (0.76-1.27) Estimat Glomerular Filtration Rate 78mL/min (>59) Glucose Level 122mg/dL (60-99) Calcium Level 9.2mg/dL (8.5-10.1) Phosphorus Level 5.0mg/dL (2.5-4.9) Magnesium Level 1.7mg/dL (1.6-2.6) Total Bilirubin 0.3mg/dL (0.0-1.2) Aspartate Amino Transf (AST/SGOT) 28U/L (0-50) Alanine Aminotransferase (ALT/SGPT) 24U/L (0-44) Alkaline Phosphatase 70U/L (25-150) Total Protein 7.8g/dL (6.4-8.4) Albumin 3.4g/dL (3.4-5.0) Discharge Medications Discharge Medications Cephalexin (Keflex) 500 Mg Capsule 500 MG PO QID Prescribed by: RONEL PETIT MD Gabapentin (Gabapentin) 600 Mg Tablet 600 MG PO BID (Reported) Lisinopril (Lisinopril) 10 Mg Tablet 10 MG PO BID Prescribed by: AMY GUPTA MD Sertraline HCl (Sertraline) 100 Mg Tablet 150 MG PO DAILY (Reported) oxyCODONE (oxyCODONE) 5 Mg Tablet 10-20 MG PO Q6H Prescribed by: RONEL PETIT MD As needed Acetaminophen (Acetaminophen) 325 Mg Tablet 325-650 MG PO Q4H PRN PRN For Fever (Reported) Loperamide (Loperamide) 2 Mg Capsule 2 MG PO Q4H PRN PRN For Diarrhea or Loose Stool (Reported) Additional med instructions Please continue to take Keflex for 14days, then continue to take Amoxicillin for prophylaxis Followup Plan Disposition: Home Follow-up plan Please follow up with your PCP in 2weeks Discharge Diet: No restrictions Patient Instructions You were hospitalized with soft tissue infection in your leg, likely triggered by your scratches. Please note that you can do daily dressing, recommended by Wound Care Service. Please follow medicine instruction as above Please continue the process for bariatric surgery as scheduled Follow-up Provider: Derek Castro MD Follow-up with PCP in: 2 weeks Time spent 65 minutes Ronel Petit MD Jan 17, 2017 15:59
== END 2017-01-17 13:30 | disposition home or self-care (01) | DRG 603 ==
LOC: SED 19:36 → MPC 22:56
PROVIDERS: ADMIT Hospitalist; ATTEND Hospitalist
DX: L03.116 Cellulitis of left lower limb (principal); E66.2 Morbid (severe) obesity with alveolar hypoventilation; Z68.45 Body mass index [BMI] 70 or greater, adult; G47.33 Obstructive sleep apnea (adult) (pediatric); I10 Essential (primary) hypertension; M79.7 Fibromyalgia; G89.29 Other chronic pain; R31.9 Hematuria, unspecified; I87.2 Venous insufficiency (chronic) (peripheral); Z22.322 Carrier or suspected carrier of Methicillin resistant Staphylococcus aureus

== ENCOUNTER 2017-01-19 20:17 | Inpatient (IN) | payer MEDICARE, MEDICAID ==
[~2017-01-19] VITALS: Ht 180.3 cm; Wt 267.3 kg
[~2017-01-19 20:17] MED LIST changes: +ACET325T51 PO; -AMOX500T2 PO; +CEPH-512 PO; -GABA-502 PO; +GABA600T2 PO; +LOPE2CAP PO; -OXYC-466 PO; +OXYC5TAB72 PO
[2017-01-19 20:39] VITALS: BP 127/79; PULSE 105; RESP 20; O2SAT 95
[2017-01-19 21:21] LABS: BASOPHILS % (AUTO) 0.2 % (0-3); EOSINOPHILS % (AUTO) 2.2 % (0-5); MONOCYTES % (AUTO) 9.3 % (4-12); Mean Corpuscular Hemoglobin 26.1 pg (27.0-35.0); Mean Corpuscular Volume 82.8 fL (81-100); NEUTROPHILS % (AUTO) 65.3 % (40-74); Platelet Count 316 bil/L (150-400)
[2017-01-19 21:51] LABS: APPEARANCE,URINE CLEAR (CLEAR,HAZY); COLOR,URINE YELLOW (YELLOW); OCCULT BLOOD,URINE LARGE (NEGATIVE); UROBILINOGEN,URINE NORMAL (NORMAL)
--- NOTE | 2017-01-19 23:27 | ED.REPORT ---
HPI-General Illness Date of Service Jan 19, 2017 ED Provider: Dr. George Mendoza M.D. A 41 year old male with a medical history including recurrent lower extremity cellulitis, chronic bilateral lymphedema, hypertension, and morbid obesity presents to the ED with bilateral groin pain onset two days ago. The patient has been taking Keflex for recurrent leg cellulitis. He was discharged from the hospital on 01/17/17 after a four night stay with similar symptoms. The patient also reports chills. He denies nausea, vomiting, or other symptoms. Nursing Notes Stated Complaint: GROIN PAIN/CELLULITIS Chief Complaint: Skin Rash/Abscess Nursing Notes Reviewed: Yes Allergies: Coded Allergies: linezolid (Verified Allergy, Intermediate, Hives, rash, itching, 01/19/17) vancomycin (Verified Adverse Reaction, Intermediate, "Kidneys Shut Down", 01/19/17) Scheduled Cephalexin (Keflex) 500 Mg Capsule 500 MG PO QID Gabapentin (Gabapentin) 600 Mg Tablet 600 MG PO BID Lisinopril (Lisinopril) 10 Mg Tablet 10 MG PO BID Sertraline HCl (Sertraline) 100 Mg Tablet 150 MG PO DAILY oxyCODONE (oxyCODONE) 5 Mg Tablet 10-20 MG PO Q6H Scheduled PRN Acetaminophen (Acetaminophen) 325 Mg Tablet 325-650 MG PO Q4H PRN PRN For Fever Loperamide (Loperamide) 2 Mg Capsule 2 MG PO Q4H PRN PRN For Diarrhea or Loose Stool General Time Seen by MD: 23:27 Chief Complaint Other (Bilateral Groin Pain) Hx Obtained From: Patient Arrived By: Walk-in Sudden in Onset?: Yes Onset Occurred: 2 days ago Symptom Duration: Since onset Location: : Abdomen (Bilateral groin) Quality: Painful Severity: Current: Moderate Severity: Maximum: Moderate Associated with: Denies: Fever, Nausea, Vomiting Pertinent Negative: Relieved by nothing Recent Healthcare: Recent doctor visit, Recent hospitalization Past Medical History Past Medical History Notes: Patient with multiple admissions for cellulitis Past Medical History 1. Recurrent cellulitis right lower extremity, also hx of abdominal cellulitis 2. Severe lymphedema of right lower extremity greater than left. 3. Severe Morbid obesity with BMI of 80.9 4. Hypertension. 5. Chronic pain with narcotic dependence. 6. Seasonal allergies. 7. Obstructive sleep apnea. CPAP intolerant. 8. Fibromyalgia. 9. Arthritis 10. Depression/Anxiety 11. Venous insufficiency of the lower extremities No hx of MRSA Past Surgical History Hernia repair Reports: Cholecystectomy Family History Family History Diabetes Rheumatoid arthritis Hypertension Cancer No history of TB Smoking History Never Smoker Social History Uses mobility scooter Alcohol Use: Denies alcohol use Drug Use: Denies drug use Other Social History: Ambulatory Status Independent Review of Systems + Bilateral groin pain Full Review of Systems Constitutional: Reports: Chills Respiratory: Denies: Non-productive cough, Shortness of breath GI: Denies: Nausea, Vomiting Complete sys rev & neg: except as marked. Physical Exam Vital Signs Vital Signs Date Time Temp Pulse Resp B/P Pulse Ox O2 Delivery O2 Flow Rate FiO2 01/19/17 23:40 36.2 106 20 136/76 96 Room Air 01/19/17 20:39 36.2 105 20 127/79 95 Room Air Initial VS: Reviewed Head / Eyes: Atraumatic, Normocephalic ENT: Conjunctiva normal, No scleral icterus Neck: Supple, Full range of motion Respiratory: Breath sounds normal, Clear to auscultation, No respiratory distress Cardiovascular: Regular rate & rhythm, Heart sounds normal Neurologic: Alert, Oriented, Nonfocal Psychiatric: Mood/affect normal, Behavior normal, Normal thought content General/Constitutional: Awake, Alert, No acute distress Appearance / Presentation: Positive: Obese, morbidly LOWER EXTREMITIES: Chronic lymphedema Skin: Warm, Dry Right medial upper thigh indurated, puckered, swollen, with new infection Left leg at baseline with scaling, fissuring, and redness Male Genitourinary: Atraumatic, Scrotal/perineal skin NL Interpretation & Diagnostics Lab Results Interpretation Result Diagram: 01/19/17210401/19/172104 Test 01/19/17 21:05 01/19/17 21:10 01/20/17 00:45 White Blood Count 10.4th/mm3 (3.8-10.1) Red Blood Count 4.95mil/mm3 (4.40-5.80) Hemoglobin 12.9g/dL (13.8-17.2) Hematocrit 41.0% (41.0-50.0) Mean Corpuscular Volume 82.8fL (81-100) Mean Corpuscular Hemoglobin 26.1pg (27.0-35.0) Mean Corpuscular Hemoglobin Concent 31.5% (32.0-37.0) Red Cell Distribution Width 14.5% (12.3-15.4) Platelet Count 316bil/L (150-400) Neutrophils (%) (Auto) 65.3% (40-74) Lymphocytes (%) (Auto) 22.5% (14-46) Monocytes (%) (Auto) 9.3% (4-12) Eosinophils (%) (Auto) 2.2% (0-5) Basophils (%) (Auto) 0.2% (0-3) Sodium Level 140mEq/L (134-144) Potassium Level 4.0mEq/L (3.5-5.2) Chloride Level 101mEq/L (97-108) Carbon Dioxide Level 27mmol/L (18-29) Blood Urea Nitrogen 29mg/dL (6-24) Creatinine 1.67mg/dL (0.76-1.27) Estimat Glomerular Filtration Rate 48mL/min (>59) Glucose Level 135mg/dL (60-99) Calcium Level 9.0mg/dL (8.5-10.1) Total Bilirubin 0.3mg/dL (0.0-1.2) Aspartate Amino Transf (AST/SGOT) 23U/L (0-50) Alanine Aminotransferase (ALT/SGPT) 25U/L (0-44) Alkaline Phosphatase 77U/L (25-150) Total Protein 8.7g/dL (6.4-8.4) Albumin 3.5g/dL (3.4-5.0) Hold Estrada Top Tube Received (Received) Urine Color Yellow (YELLOW) Urine Appearance Clear (CLEAR,HAZY) Urine pH 6.0 (5.0-8.0) Urine Specific [place] 1.025 (1.003-1.035) Urine Protein 100mg/dL (NEG,TRACE) Urine Glucose (UA) Negativemg/dL (NEGATIVE) Urine Ketones Negativemg/dL (NEGATIVE) Urine Occult Blood Large (NEGATIVE) Urine Nitrite Negative (NEGATIVE) Urine Bilirubin Negative (NEGATIVE) Urine Urobilinogen Normalmg/dL (NORMAL) Urine Leukocyte Esterase Negative (NEGATIVE) Urine RBC 0-2/hpf (0-2) Urine WBC 0-5/hpf (0-5) Urine Epithelial Cells None/hpf (NONE-MOD) Urine Crystals None seen (NONE SEEN) Urine Bacteria Few/hpf (NONE-FEW) Urine Hyaline Casts None/lpf (NONE) Urine Granular Casts None seen (NONE SEEN) Urine Waxy Casts None seen (NONE SEEN) Urine Red Blood Cell Casts None seen (NONE SEEN) Urine White Blood Cell Casts None seen (NONE SEEN) Urine Mucus None seen (None Seen) Urine Trichomonas None seen (NONE SEEN) Urine Yeast None (NONE SEEN) Urinalysis Comment None Urine Culture Reflexed Not indicated Hold Urine Received (Received) Re-Eval/Medical Decision Med Decision/Clinical Course 41-year-old with chronic lymphedema and recurrent sialitis presents with worsening symptoms in his upper right leg and a tender indurated area in the medial thigh that does appear to be new and expanding. He has no evidence of Tavares's gangrene. He is simply failing on oral antibiotics at this point. Admitted now for IV antibiotics. Making multiple requests for pain relief and will continue with oral oxycodone in preference to intravenous opioids. Source of Hx: Old records Time of Eval: 01:31 Patient Status: Condition improved Re-Evaluation/Progress Note: Discussed with patient plan for oral pain medication only. Discussed with patient lab results, diagnosis, and plan for admit. Patient agrees with plan for care and all questions were addressed. Consultation : Referral / Consult Name: Neptali Thakur MD Consulted With: Hospitalist Call Returned at: 01:22 Maintenance Mechanic Helper: Agrees with eval, Agrees with plan, Accepts admit Counseled Regarding: Diagnosis, Lab results, Need for admission Discharge & Departure Primary Impression: Cellulitis Site of cellulitis: extremity Site of cellulitis of extremity: lower extremity Laterality: right Qualified Code: L03.115 - Cellulitis of right lower limb Disposition: ADMITTED TO HOSPITAL Discharge Condition All VS Reviewed: Yes Condition: Improved Referrals: Supa Alegria DO (PCP) Geoff Attestation Portions of this note were transcribed by Lakisha Vides. I, Dr. Mendoza, personally performed the history, physical exam, and medical decision-making; I reviewed and confirmed the accuracy of the information in the transcribed note. Signed by: Geoff Arellano, 01/20/2017, 03:20 copies to: Supa Alegria Christopher W MD Jan 19, 2017 23:27 LAKISHA VIDES Jan 20, 2017 00:06
[2017-01-19 23:40] VITALS: BP 136/76; PULSE 106; RESP 20; O2SAT 96
[2017-01-20] VITALS (8 sets, daily range): BP systolic 110–153; BP diastolic 66–94; PULSE 84–106; RESP 20–22; O2SAT 94–96
[2017-01-20] MEDS ORDERED: Alum-Mag Hydrox-Simeth 30 mL Suspension PO PRN (01:25)
[2017-01-20] MEDS ORDERED: Polyethylene Glycol (PEG) 17 Gm Powder PO PRN (01:25)
[2017-01-20] MEDS ORDERED: Ondansetron 2 mg/mL 2 mL Inj IVPUSH PRN (01:25)
[2017-01-20] MEDS ORDERED: Ondansetron 2 mg/mL 2 mL Inj IVPUSH ONE (01:35)
[2017-01-20] MEDS ORDERED: 0.9% Sodium Chloride 250 ML ONE (02:34)
[2017-01-20] MEDS: Ceftaroline Inj 600 MG in Dextrose 5% 250 ML IV SCH ×3 (02:38→20:31)
[2017-01-20] MEDS ORDERED: HYDROmorphone 1 mg/mL Inj IVPUSH PRN (02:40)
--- NOTE | 2017-01-20 03:33 | PCM.HPMED ---
Subjective Date of Service Jan 20, 2017 Primary Provider: Admitting Physician: eNptali Thakur MD Primary Care Physician: Supa Alegria DO Attending Physician: Neptali Thakur MD Admit Status: From the Emergency Department, Full Admit, Remote Telemetry Chief Complaint: Persistent left leg cellulitis History of Present Illness: Du Flannery is a 41 year old male Recurrent leg cellulitis and sepsis, severe bilateral lymphedema, hypertension, rheumatoid arthritis, chronic pain, obstructive sleep apnea who presents to [facility] emergency department with increased redness on left leg His initial complaints was bilateral groin pain (stabbing in character, 7/10 intensity without any radiation). He notices his left leg was turning red again with increasing pain, consistent with his recurrent cellulitis. He denies any fever or chills. He denies any trauma but still have a persistent open wound behind his left knee. He has been dressing it The patient has been taking Keflex for recurrent lower leg cellulitis after being discharged from the hospital on 01/17/17 after a four night stay. Case discussed with Dr Mendoaz, IV fluids given as well as antibiotics. Plan to admit given tendency to progress to sepsis. Review of Systems: Pertinent positives as noted in HPI. All other systems were reviewed and are negative Allergies Coded Allergies: linezolid (Verified Allergy, Intermediate, Hives, rash, itching, 01/19/17) vancomycin (Verified Adverse Reaction, Intermediate, "Kidneys Shut Down", 01/19/17) Home Medications From Discharge Summary Cephalexin (Keflex) 500 Mg Capsule 500 MG PO QID Prescribed by: CANDE PETIT MD Gabapentin (Gabapentin) 600 Mg Tablet 600 MG PO BID (Reported) Lisinopril (Lisinopril) 10 Mg Tablet 10 MG PO BID Prescribed by: AMY GUPTA MD Sertraline HCl (Sertraline) 100 Mg Tablet 150 MG PO DAILY (Reported) oxyCODONE (oxyCODONE) 5 Mg Tablet 10-20 MG PO Q6H Prescribed by: CANDE PETIT MD As needed Acetaminophen (Acetaminophen) 325 Mg Tablet 325-650 MG PO Q4H PRN PRN For Fever (Reported) Loperamide (Loperamide) 2 Mg Capsule 2 MG PO Q4H PRN PRN For Diarrhea or Loose Stool (Reported) Additional med instructions Please continue to take Keflex for 14days, then continue to take Amoxicillin for prophylaxis PMH Super morbid obesity with BMI of 80.9 Recurrent cellulitis and soft tissue infections of the lower extremities Lymphedema of the lower extremities Venous insufficiency of the lower extremities Hypertension Fibromyalgia Cardiac arthritis Chronic back pain Depression/anxiety Obstructive sleep apnea Rheumatoid arthritis . Surgical History Cholecystectomy Hernia repair Family History Diabetes Rheumatoid arthritis Hypertension Cancer No history of TB Social History Hx Alcohol Use: No Hx Substance Use: No Hx Tobacco Use: No Smoking Status: Never Smoker Living Arrangement: with Family Exam Vital Signs Vital Sign - Last Date Time Temp Pulse Resp B/P Pulse Ox O2 Delivery O2 Flow Rate FiO2 01/20/17 02:28 37.2 97 22 110/66 96 Room Air Intake and Output 01/19/17 01/19/17 01/20/17 Cumulative From/Thru 15:00 23:00 07:00 01/19/17 20:39 - 01/20/17 02:27 Output Total 450 ml 450 ml Balance -450 ml -450 ml Output Urine Total 450 ml 450 ml Exam General: Alert, Oriented X3, Cooperative, No acute Distress Eyes: PERRLA, Scleral Anicteric Mouth: Mouth Normal, Mucous Membranes Moist/[place] Neck: Supple, no Thyromegaly, trachea central. Chest & Lungs: Clear to auscultation & percussion, No adventitious breath sounds, no crackles, no wheeze Cardiovascular: distant heart sounds but Normal S1, Normal S2, No Murmurs/Rubs/ Gallops, Regular Rate/Rhythm, (No JVD,) Pulses: Radial (present and equal), Dorsalis Pedi (present and equal) Abdomen: Soft, Non-tender, Non-distended, Normoactive bowel tones. Musculoskeletal: Unremarkable. Normal range of motion, no swollen or erythematous joints Extremities: Bilateral lower extremities----Evidence of chronic venous stasis changes , thickening of skin, very dry skin. Bilateral severe lymphedema.Both lower extremities tender to palpation Skin: Abrasion noted on posterior side of left lower extremity.No warmth noted on palpation. Neurological: Grossly neurologically intact, has generalized weakness, Normal Speech, Sensation Intact Lymphatic: Lymph nodes Cervical and Axillary not palpable. Lab and Diagnostics Labs Laboratory Tests Test 01/19/17 21:05 01/19/17 21:10 01/20/17 00:45 White Blood Count 10.4th/mm3 (3.8-10.1) Red Blood Count 4.95mil/mm3 (4.40-5.80) Hemoglobin 12.9g/dL (13.8-17.2) Hematocrit 41.0% (41.0-50.0) Mean Corpuscular Volume 82.8fL (81-100) Mean Corpuscular Hemoglobin 26.1pg (27.0-35.0) Mean Corpuscular Hemoglobin Concent 31.5% (32.0-37.0) Red Cell Distribution Width 14.5% (12.3-15.4) Platelet Count 316bil/L (150-400) Neutrophils (%) (Auto) 65.3% (40-74) Lymphocytes (%) (Auto) 22.5% (14-46) Monocytes (%) (Auto) 9.3% (4-12) Eosinophils (%) (Auto) 2.2% (0-5) Basophils (%) (Auto) 0.2% (0-3) Sodium Level 140mEq/L (134-144) Potassium Level 4.0mEq/L (3.5-5.2) Chloride Level 101mEq/L (97-108) Carbon Dioxide Level 27mmol/L (18-29) Blood Urea Nitrogen 29mg/dL (6-24) Creatinine 1.67mg/dL (0.76-1.27) Estimat Glomerular Filtration Rate 48mL/min (>59) Glucose Level 135mg/dL (60-99) Calcium Level 9.0mg/dL (8.5-10.1) Total Bilirubin 0.3mg/dL (0.0-1.2) Aspartate Amino Transf (AST/SGOT) 23U/L (0-50) Alanine Aminotransferase (ALT/SGPT) 25U/L (0-44) Alkaline Phosphatase 77U/L (25-150) Total Protein 8.7g/dL (6.4-8.4) Albumin 3.5g/dL (3.4-5.0) Hold Estrada Top Tube Received (Received) Urine Color Yellow (YELLOW) Urine Appearance Clear (CLEAR,HAZY) Urine pH 6.0 (5.0-8.0) Urine Specific Bruce 1.025 (1.003-1.035) Urine Protein 100mg/dL (NEG,TRACE) Urine Glucose (UA) Negativemg/dL (NEGATIVE) Urine Ketones Negativemg/dL (NEGATIVE) Urine Occult Blood Large (NEGATIVE) Urine Nitrite Negative (NEGATIVE) Urine Bilirubin Negative (NEGATIVE) Urine Urobilinogen Normalmg/dL (NORMAL) Urine Leukocyte Esterase Negative (NEGATIVE) Urine RBC 0-2/hpf (0-2) Urine WBC 0-5/hpf (0-5) Urine Epithelial Cells None/hpf (NONE-MOD) Urine Crystals None seen (NONE SEEN) Urine Bacteria Few/hpf (NONE-FEW) Urine Hyaline Casts None/lpf (NONE) Urine Granular Casts None seen (NONE SEEN) Urine Waxy Casts None seen (NONE SEEN) Urine Red Blood Cell Casts None seen (NONE SEEN) Urine White Blood Cell Casts None seen (NONE SEEN) Urine Mucus None seen (None Seen) Urine Trichomonas None seen (NONE SEEN) Urine Yeast None (NONE SEEN) Urinalysis Comment None Urine Culture Reflexed Not indicated Hold Urine Received (Received) Microbiology 01/20/17 Blood Culture, Received Pending Result Diagram: 01/19/17210401/19/172104 Assessment & Plan Du Flannery is a 41 year old male Recurrent leg cellulitis and sepsis, severe bilateral lymphedema, hypertension, rheumatoid arthritis, chronic pain, obstructive sleep apnea who presents to [facility] emergency department with increased redness on left leg 1. Acute on chronic cellulitis of left lower extremity, present on admission, ongoing No evidence of Sepsis but previous history. Immnucompromised with likely poor circulation and Lymphedema are contributing factors to recurrent infections. Patient does not have any DVT with repeated imaging and he is not diabetic. - IV fluids resuscitations NS 100mls/hr - Dilaudid available for pain - continue Ceftaroline IV, stopping Keflex for now - on Amoxicillin for prophylactic antibiotics - may need to contact Dr Eddy via email for recommendations 2. Hypertension Presumed stable - continue Lisinopril 10 mg bid 3. Depression Mood stable - continue Sertraline 100 mg daily 4 Obesity with Obstructive Sleep Apnea - continue pulse oximetry - Pt to does not use CPAP at home - patient approved for bariatric surgery at 5. Chronic pain syndrome - continuing Gabapentin 600 mg bid and Oxycodone PRN - Acetaminophen as needed for mild pain/fever/headache - Bowel regimen as needed - Antiemetic as needed Patient admitted under inpatient status with expected length of stay > 2 midnights for severity of present symptoms, complexities of treatment plan and risk for adverse event . Resuscitation Status: CPR: Attempt Resuscitation Neptali Thakur MD Jan 20, 2017 02:50
[2017-01-20] MEDS ORDERED: Lidocaine 5% 35.5 Gm Ointment TOPICAL PRN (04:10)
[2017-01-20] MEDS: HYDROmorphone 1 mg/mL Inj IVPUSH PRN ×5 (05:17→21:46)
--- NOTE | 2017-01-20 05:22 | NUR ---
Admit/Pain Admitted a pt from ED to [facility] room 3017. Pt is pleasant and cooperative with care. Pt complains of groin and leg pain due to progression of cellulitis. Administered Dilaudid 2mg PRN q4 and Oxicodone for breakthrough pain. Pt denies chest pain, sob, n/v or abd discomfort. Pt is currently on striker bariatric bed with overhead trapeze. Will continue to monitor.
[2017-01-20] MEDS: 0.9% Sodium Chloride 1,000 ML IV SCH ×3 (05:49→22:30)
[2017-01-20 08:20] LABS: BASOPHILS % (AUTO) 0.1 % (0-3); EOSINOPHILS % (AUTO) 2.6 % (0-5); MONOCYTES % (AUTO) 11.7 % (4-12); Mean Corpuscular Hemoglobin 26.2 pg (27.0-35.0); Mean Corpuscular Volume 83.3 fL (81-100); Platelet Count 251 bil/L (150-400)
[2017-01-20] MEDS: Heparin 5,000 Unit/mL Inj SUBQ SCH ×2 (09:02→16:48)
--- NOTE | 2017-01-20 15:30 | NUR ---
Pain Patient continues to report groin pain greater than leg pain. Pain medications effective for pain control. No open areas or weeping from Lt leg cellulitus (no dressing at this time).
--- NOTE | 2017-01-20 20:24 | PCM.PNMED ---
Subjective Date of Service Jan 20, 2017 Subjective Limited progress note. Patient examined. Agree with plan as set forth by Dr. Thakur earlier. Exam Vital Signs Vital Sign - Last Date Time Temp Pulse Resp B/P Pulse Ox O2 Delivery O2 Flow Rate FiO2 01/20/17 19:01 37.0 88 22 136/82 96 Room Air Intake and Output 01/19/17 01/19/17 01/20/17 Cumulative From/Thru 15:00 23:00 07:00 01/19/17 20:39 - 01/20/17 05:51 Intake Total 366 ml 366 ml Output Total 450 ml 450 ml Balance -84 ml -84 ml IV Total 366 ml 366 ml Output Urine Total 450 ml 450 ml IVs and Medications Medications Reviewed: Medications were reviewed in detail Lab and Diagnostics Result Diagram: 01/20/17 0814 01/20/17 0814 Assessment & Plan Plan per Dr. Thakur dated earlier today, 01/20/17: Du Flannery is a 41 year old male Recurrent leg cellulitis and sepsis, severe bilateral lymphedema, hypertension, rheumatoid arthritis, chronic pain, obstructive sleep apnea who presents to [facility] emergency department with increased redness on left leg 1. Acute on chronic cellulitis of left lower extremity, present on admission, ongoing No evidence of Sepsis but previous history. Immnucompromised with likely poor circulation and Lymphedema are contributing factors to recurrent infections. Patient does not have any DVT with repeated imaging and he is not diabetic. - IV fluids resuscitations NS 100mls/hr - Dilaudid available for pain - continue Ceftaroline IV, stopping Keflex for now - on Amoxicillin for prophylactic antibiotics - may need to contact Dr Eddy via email for recommendations 2. Hypertension Presumed stable - continue Lisinopril 10 mg bid 3. Depression Mood stable - continue Sertraline 100 mg daily 4 Obesity with Obstructive Sleep Apnea - continue pulse oximetry - Pt to does not use CPAP at home - patient approved for bariatric surgery at 5. Chronic pain syndrome - continuing Gabapentin 600 mg bid and Oxycodone PRN - Acetaminophen as needed for mild pain/fever/headache - Bowel regimen as needed - Antiemetic as needed Patient admitted under inpatient status with expected length of stay > 2 midnights for severity of present symptoms, complexities of treatment plan and risk for adverse event . Resuscitation Status: CPR: Attempt Resuscitation Attending Statement The patient was seen and examined together with Dr. Mcmahon on 01/20/17 and I agree with the history, exam and plan as outlined in the note above. Janell Mcmahon DO Jan 20, 2017 20:24 Luz Maria Varela DO Jan 21, 2017 14:33
--- NOTE | 2017-01-20 20:30 | PCM.PROC ---
Procedure Note Date of Service: Jan 20, 2017 Procedure: Procedure: Osteopathic Manipulative Treatment Subjective: Patient is c/o right groin pain that is sharp and can get to a 10/ 10 with movement or palpation. The pain can shoot down his right thigh. Patient denies any testicular pain or difficulty urinating. Risks and benefits of OMT were explained to the patient and verbal consent obtained. Osteopathic structural exam: Lower extremity: Hypertonicity of the right psoas muscle. Pelvis: Right posterior rotation Patient responded well to treatment reporting decreased pain. Osteopathic treatment modality used: Myofascial release, muscle energy, BLT, soft tissue techniques. Treatment by Drs. Luz Maria Varela, Lary Torres, Janell Mcmahon Attending Statement The patient was seen and examined together with Dr. Mcmahon on 01/20/17 and I agree with the history, exam and plan as outlined in the note above. Janell Mcmahon DO Jan 20, 2017 20:30 Luz Maria Varela DO Jan 21, 2017 14:32
[2017-01-21] VITALS (7 sets, daily range): BP systolic 123–173; BP diastolic 72–93; PULSE 60–100; RESP 17–20; O2SAT 93–96
[2017-01-21] MEDS: Heparin 5,000 Unit/mL Inj SUBQ SCH ×3 (00:26→17:29)
[2017-01-21] MEDS: HYDROmorphone 1 mg/mL Inj IVPUSH PRN ×3 (01:53→09:37)
--- NOTE | 2017-01-21 05:59 | NUR ---
Pain Pt requested pain medication almost as frequently as it was available. Pt complaints of leg pain as well as "groin" pain. Pt did get up out of bed at end of shift and reported a relief in pain when standing. Addendum: 01/21/17 at 0635 by ROGERS GUTIERREZ RN Pain medication Request Pt requested this morning to have his IV pain medication removed, and to increase his PO pain medication. Will pass on request to day shift RN to ask .
[2017-01-21 07:00] LABS: BASOPHILS % (AUTO) 0.3 % (0-3); EOSINOPHILS % (AUTO) 3.6 % (0-5); MONOCYTES % (AUTO) 8.8 % (4-12); Mean Corpuscular Hemoglobin 26.1 pg (27.0-35.0); Mean Corpuscular Volume 84.3 fL (81-100); NEUTROPHILS % (AUTO) 62.7 % (40-74); Platelet Count 260 bil/L (150-400)
[2017-01-21] MEDS: Ceftaroline Inj 600 MG in Dextrose 5% 250 ML IV SCH ×2 (09:32→19:58)
[2017-01-21] MEDS: 0.9% Sodium Chloride 1,000 ML IV SCH ×2 (09:32→20:00)
--- NOTE | 2017-01-21 15:10 | NUR ---
Social Work: Initial Assessment Data: EMR Reviewed. See Initial Assessment. Pt is a 41 y/o male re-admitted for cellulitis of right leg. Patient's re-admit score is high at 4. Patient ANA CRISTINA is his Deb Flannery [phone]. Patient's insurance is [employer] Medicare and [employer] supp. as secondary. Patient's PCP is Dr Alegria. Patient's insurance is [employer] Medicare, [employer] supp. Studio Operation Engineer met with pt at bedside, SW role explained, discharge planning discussed, and initial assessment complete. Patient reports that he lives in [place] with his and two adult children. Patient reports that he lives in a single level home with 4.5 steps to enter the home which he can climb.Patient has a power chair that he uses most of the time and it is at bedside. Pt states that he has no hx of HH or SNF, no LTC or VA benefits, and is not a caregiver. Pt states that he does not have a AD/DPOA and he accepted information offered by social worker school. Patient reports that he does not have any SW needs at the current time. Patient has Bariatric surgery scheduled at [facility] on February 16. SW provided contact information on patient's white board. SW will continue to follow patient. Plan: Pt is likely to discharge home with family via POV when medically stable. SW will continue to follow. Asmita Kelley LMSW, ALLIE Addendum: 01/23/17 at 1150 by ASMITA KELLEY SS Amended: Links added.
--- NOTE | 2017-01-21 18:24 | NUR ---
Groin Pain Pt stated groin pain throughout day, with pain increase with activity Per Pt request, pain med changed from IV Dilaudid to 20mg of oxycodone. Heat packs were used unsuccessfully to relive pain Next dose of pain meds at 1950 Addendum: 01/21/17 at 1948 by SAEID FAJARDO RN I have reviewed and agree with SN charting and note.
--- NOTE | 2017-01-21 18:25 | PCM.PNMED ---
Subjective Date of Service Jan 21, 2017 Subjective Du Flannery is a 41 year old male Recurrent leg cellulitis and sepsis, severe bilateral lymphedema, hypertension, rheumatoid arthritis, chronic pain, obstructive sleep apnea who presents to [facility] emergency department with increased redness on left leg Overnight the patient said he had some soreness in his left groin area. He would like to d/c the Dilaudid and go up on his oral medications instead. His left leg feels much better. He has been ambulating in his room. Denies nausea, vomiting, chest pain, dizziness, chills. Exam Vital Signs Vital Sign - Last Date Time Temp Pulse Resp B/P Pulse Ox O2 Delivery O2 Flow Rate FiO2 01/21/17 16:35 36.7 60 19 124/72 94 Room Air Intake and Output 01/20/17 01/20/17 01/21/17 Cumulative From/Thru 14:59 22:59 06:59 01/19/17 20:39 - 01/21/17 05:29 Intake Total 2925 ml 600 ml 3891 ml Output Total 3000 ml 1700 ml 5150 ml Balance -75 ml -1100 ml -1259 ml Intake Oral 2925 ml 600 ml 3525 ml IV Total 366 ml Output Urine Total 3000 ml 1700 ml 5150 ml # Bowel Movements 1 0 1 Exam General: Alert, Oriented X3, Cooperative, No acute Distress Eyes: PERRLA, Scleral Anicteric Mouth: Mouth Normal, Mucous Membranes Moist/[place] Neck: Supple Chest & Lungs: Clear to auscultation & percussion, No adventitious breath sounds , no crackles, no wheeze Cardiovascular: distant heart sounds but Normal S1, Normal S2, No Murmurs/Rubs/ Gallops, Regular Rate/Rhythm Pulses: Radial (present and equal), Dorsalis Pedi (present and equal) Abdomen: Soft, Non-tender, Non-distended, Normoactive bowel tones. Extremities: Bilateral lower extremities----Evidence of chronic venous stasis changes , thickening of skin, very dry skin. Bilateral severe lymphedema but right > left. Both lower extremities tender to palpation. Left lower leg is no longer excessively warm as it was yesterday. Skin: Abrasion noted on posterior side of left lower extremity. Neurological: Grossly neurologically intact, Normal Speech, Sensation Intact Lymphatic: Lymph nodes Cervical and Axillary not palpable. IVs and Medications Medications Reviewed: Medications were reviewed in detail Lab and Diagnostics Result Diagram: 01/21/17 0635 01/21/17 0635 Microbiology Blood cultures - no growth after 24 hours Assessment & Plan Du Flannery is a 41 year old male Recurrent leg cellulitis and sepsis, severe bilateral lymphedema, hypertension, rheumatoid arthritis, chronic pain, obstructive sleep apnea who presents to [facility] emergency department with increased redness on left leg 1. Acute on chronic cellulitis of left lower extremity, present on admission, ongoing No evidence of Sepsis but previous history. Immunocompromised with likely poor circulation and Lymphedema are contributing factors to recurrent infections. Patient does not have any DVT with repeated imaging and he is not diabetic. - IV fluids resuscitations NS now discontinued - Roxycodone for pain - continue Ceftaroline IV, stopping Keflex for now - on Amoxicillin for prophylactic antibiotics - Dr Eddy (ID physician) last saw patient last week and made recommendations. He is to follow up at Dr. Eddy's office as outpatient. 2. Hypertension, present on admission, chronic Presumed stable - continue Lisinopril 10 mg bid. This medicine initially not continued but overlooked. When restarted, blood pressure came down. 3. Depression, present on admission, chronic Mood stable - continue Sertraline 100 mg daily 4 Morbid Obesity with Obstructive Sleep Apnea, present on admission, chronic - continue pulse oximetry - Pt to does not use CPAP at home - patient approved for bariatric surgery at 5. Chronic pain syndrome, present on admission, chronic - continuing Gabapentin 600 mg bid and Oxycodone PRN 6. Drug dependance, present on admission, chronic - Oxycodone use in outpatient continued - Acetaminophen as needed for mild pain/fever/headache - Bowel regimen as needed - Antiemetic as needed Patient admitted under inpatient status with expected length of stay > 2 midnights for severity of present symptoms, complexities of treatment plan and risk for adverse event . VTE Prophylaxis: Sub-Q Heparin (Unfractionated) Resuscitation Status: CPR: Attempt Resuscitation Attending Statement The patient was seen and examined together with Dr. Mcmahon on 01/21/17 and I agree with the history, exam and plan as outlined in the note above. Janell Mcmahon DO Jan 21, 2017 18:25 Luz Maria Varela DO Feb 02, 2017 16:52
--- NOTE | 2017-01-21 18:26 | NUR ---
spiritual care: routine pt agreeable for visit from eucharistic plant controls specialist and also lay plant controls specialist for rafaela thursday ritual. pt expressed gratitude
[2017-01-21] MEDS ORDERED: HYDROmorphone 1 mg/mL Inj IVPUSH ONE (23:40)
--- NOTE | 2017-01-21 23:57 | NUR ---
Peripheral IV Site Patient stated that his IV site (Right forearm) was starting to hurt. Pump alarm was on stating distal occlusion. IV site appeared firm. Flushed site and patient stated that he could taste the saline. No signs of infiltration or phlebitis. Restarted IV pump and pump resumed without issue. Provided a hot pack for patient to put on IV site to help ease discomfort. This was effective at reducing pain at IV site.
[2017-01-22] VITALS (9 sets, daily range): BP systolic 125–163; BP diastolic 62–85; PULSE 76–87; RESP 18–20; O2SAT 93–96
[2017-01-22] MEDS: Heparin 5,000 Unit/mL Inj SUBQ SCH ×3 (00:24→16:58)
--- NOTE | 2017-01-22 06:33 | NUR ---
Pain Pt reports that groin pain is very mild but reports increase of pain in legs, Oxycodone given but not effective. Pt requests some Dilaudid to help him through the night. MD called and one-time order for IV Dilaudid obtained and given, pts reports good pain relief and asleep off and on.
[2017-01-22 06:41] LABS: BASOPHILS % (AUTO) 0.2 % (0-3); EOSINOPHILS % (AUTO) 3.4 % (0-5); MONOCYTES % (AUTO) 8.5 % (4-12); Mean Corpuscular Hemoglobin 25.9 pg (27.0-35.0); Mean Corpuscular Volume 84.2 fL (81-100); NEUTROPHILS % (AUTO) 65.9 % (40-74); Platelet Count 264 bil/L (150-400)
[2017-01-22] MEDS: 0.9% Sodium Chloride 1,000 ML IV SCH (08:26)
[2017-01-22] MEDS: Ceftaroline Inj 600 MG in Dextrose 5% 250 ML IV SCH ×2 (08:30→20:28)
--- NOTE | 2017-01-22 14:13 | NUR ---
Social Work: Readiness for d/c Data: Pt is on day 2 of hospitalization. EMR reviewed. Pt discussed in rounds. MD states pt likely to d/c tomorrow. PT worked with pt, outpt PT recommended. No further d/c planning needs anticipated at this time. SUPERVISOR MECHANIC BOILERMAKING will continue to follow if needs arise. Assessment: Pt who is independent at baseline. Plan: Pt will d/c home via POV with spouse when medically stable, likely tomorrow. No further d/c planning needs anticipated at this time. SUPERVISOR MECHANIC BOILERMAKING will continue to follow if needs arise. SAÚL Odell
--- NOTE | 2017-01-22 15:58 | PCM.PNMED ---
Subjective Date of Service Jan 22, 2017 Subjective Du Flannery is a 41 year old male Recurrent leg cellulitis and sepsis, severe bilateral lymphedema, hypertension, rheumatoid arthritis, chronic pain, obstructive sleep apnea who presents to [facility] emergency department with increased redness on left leg Patient states that he again feels better today than yesterday. The exercises that PT taught him have really helped his groin pain. He used IV dilauded x1 last night because he couldn't get comfortable enough to get to sleep. He has been ambulating in the [place]. Denies dizziness, chills, chest pain, palpitations , nausea, headache. Groin pain diminished. Exam Vital Signs Vital Sign - Last Date Time Temp Pulse Resp B/P Pulse Ox O2 Delivery O2 Flow Rate FiO2 01/22/17 13:06 36.6 80 18 125/75 96 Room Air Intake and Output 01/21/17 01/21/17 01/22/17 Cumulative From/Thru 15:00 23:00 07:00 01/19/17 20:39 - 01/22/17 06:04 Intake Total 1036 ml 1362 ml 6289 ml Output Total 1700 ml 1005 ml 7855 ml Balance -664 ml 357 ml -1566 ml Intake Oral 1036 ml 300 ml 4861 ml IV Total 1062 ml 1428 ml Output Urine Total 1700 ml 1005 ml 7855 ml # Bowel Movements 0 1 Exam General: Alert, Oriented X3, Cooperative, No acute Distress, morbidly obese Eyes: PERRLA, Scleral Anicteric Mouth: Mouth Normal, Mucous Membranes Moist/[place] Neck: Supple Chest & Lungs: Distant sounds, clear to auscultation & percussion, No adventitious breath sounds, no crackles, no wheeze Cardiovascular: distant heart sounds but Normal S1, Normal S2, No Murmurs/Rubs/ Gallops, Regular Rate/Rhythm Pulses: Radial (present and equal), Dorsalis Pedi (present and equal) Abdomen: Soft, Non-tender, Non-distended, Normoactive bowel tones. Extremities: Bilateral lower extremities----Evidence of chronic venous stasis changes , thickening of skin, very dry skin. Bilateral severe lymphedema but right > left. Both lower extremities tender to palpation. Left lower leg is again not excessively warm as it was on admission. Neurological: Grossly neurologically intact, Normal Speech, Sensation Intact Lymphatic: Lymph nodes Cervical and Axillary not palpable. IVs and Medications Medications Reviewed: Medications were reviewed in detail Lab and Diagnostics Result Diagram: 01/22/17 0607 01/22/17 0607 Microbiology Blood cultures - no growth after 24 hours Assessment & Plan Du Flannery is a 41 year old male Recurrent leg cellulitis and sepsis, severe bilateral lymphedema, hypertension, rheumatoid arthritis, chronic pain, obstructive sleep apnea who presents to [facility] emergency department with increased redness on left leg 1. Acute on chronic cellulitis of left lower extremity, present on admission, acute is improving No evidence of Sepsis but previous history. Immunocompromised with likely poor circulation and Lymphedema are contributing factors to recurrent infections. Patient does not have a DVT with repeated imaging and he is not diabetic. - IV fluids resuscitations NS now discontinued - Roxycodone for pain - continue Ceftaroline IV. Per previous infectious disease note, he may discharge on oral cefdinir. Will give him 300mg Q 12 hrs x 10 days. - Was on Amoxicillin for prophylactic antibiotics, obviously failed treatment - He is to follow up at Dr. Eddy's office (infectious disease) as outpatient per his last hospitalization note (last week) 2. Hypertension, present on admission, chronic - currently controlled - continue Lisinopril 10 mg bid. 3. Depression, present on admission, chronic Mood stable - continue Sertraline 100 mg daily 4 Morbid Obesity with Obstructive Sleep Apnea, present on admission, chronic - continue pulse oximetry - Pt to does not use CPAP at home - patient approved for bariatric surgery at 5. Chronic pain syndrome, present on admission, chronic - continuing Gabapentin 600 mg bid and Oxycodone PRN 6. Drug dependance, present on admission, chronic - Oxycodone use in outpatient, continued - Acetaminophen as needed for mild pain/fever/headache - Bowel regimen as needed - Antiemetic as needed Patient admitted under inpatient status with expected length of stay > 2 midnights for severity of present symptoms, complexities of treatment plan and risk for adverse event Expect discharge home 01/23/17. VTE Prophylaxis: Sub-Q Heparin (Unfractionated) Resuscitation Status: CPR: Attempt Resuscitation Time spent Greater than 30 minutes Attending Statement The patient was seen and examined together with Dr. Mcmahon on 01/22/17 and I agree with the history, exam and plan as outlined in the note above. Janell Mcmahon DO Jan 22, 2017 15:58 Luz Maria Varela DO Feb 02, 2017 16:55
--- NOTE | 2017-01-22 19:02 | NUR ---
Activity Pt. out of bed today, sitting in chair while his family visited. Was able to get back into bed with minimal assistance. He requires help getting his legs back into bed, but otherwise independent.
[2017-01-23] MEDS: Heparin 5,000 Unit/mL Inj SUBQ SCH ×2 (00:39→08:37)
[2017-01-23 01:01] VITALS: BP 148/70; PULSE 82; RESP 20; O2SAT 93
--- NOTE | 2017-01-23 04:54 | NUR ---
Taking home Sertraline Pt told this RN that he had his some bring him a sertraline pill from home because he "wasn't feeling right". This Rn told Pt not to take any medication while in the hospital unless it came from the nursing staff. Pt agreed. Will leave note for Md to add home dose of sertraline if possible.
[2017-01-23 05:30] VITALS: BP 131/79; PULSE 74; RESP 20; O2SAT 94
[2017-01-23 06:14] LABS: BASOPHILS % (AUTO) 0.3 % (0-3); EOSINOPHILS % (AUTO) 3.2 % (0-5); MONOCYTES % (AUTO) 9.4 % (4-12); Mean Corpuscular Hemoglobin 26.2 pg (27.0-35.0); Mean Corpuscular Volume 84.6 fL (81-100); NEUTROPHILS % (AUTO) 61.4 % (40-74); Platelet Count 244 bil/L (150-400)
[2017-01-23 08:00] VITALS: PULSE 73
[2017-01-23] MEDS: Ceftaroline Inj 600 MG in Dextrose 5% 250 ML IV SCH (08:38)
[2017-01-23 09:09] VITALS: BP 161/78; PULSE 75; RESP 18; O2SAT 98
[2017-01-23] MEDS ORDERED: CEFD300C3 PO (09:18)
--- NOTE | 2017-01-23 10:06 | NUR ---
Social Work: Discharge Data: Pt is on day 3 of hospitalization. EMR reviewed. D/C orders are in. PT recommending outpt PT. No d/c planning needs identified at this time. [facility] will continue to follow if needs arise. Assessment: Pt who is independent at baseline. Plan: Pt will d/c home via POV today. No d/c planning needs identified at this time. [facility].O.D. [facility] will continue to follow if needs arise. SAÚL Odell
--- NOTE | 2017-01-23 11:55 | NUR ---
Discharge Pt discharged at this time, all belongings gathered and returned to pt. IV D/Cd intact, Tele monitor removed. Hard copy of new script given to pt to fill. Discharge packet printed and reviewed with pt. VSS. No complains of increased pain/discomfrt at this time. Pt left the unit on personal scooter, escorted by son. Pt to be transported home in private vehicle driven by son.
--- NOTE | 2017-01-23 20:11 | PCM.DC.MED ---
Discharge Summary Date of Service Jan 23, 2017 Dates of Hospitalization Date of Hospital Admission Jan 20, 2017 at 01:38 Date of Discharge: Jan 23, 2017 Providers: Admitting Physician: Neptali Thakur MD Primary Care Physician: Supa Alegria DO Attending Physician: Neptali Thakur MD Diagnosis at Time of Discharge Diagnosis at Time of Discharge 1. Acute on chronic cellulitis of left lower extremity, present on admission, acute is improving 2. Hypertension, present on admission, chronic 3. Depression, present on admission, chronic 4 Morbid Obesity with Obstructive Sleep Apnea, present on admission, chronic 5. Chronic pain syndrome, present on admission, chronic 6. Drug dependance, present on admission, chronic (oxycodone) Brief History From history and physical by Dr. Thakur dated 01/20/16: Du Flannery is a 41 year old male Recurrent leg cellulitis and sepsis, severe bilateral lymphedema, hypertension, rheumatoid arthritis, chronic pain, obstructive sleep apnea who presents to [facility] emergency department with increased redness on left leg His initial complaints was bilateral groin pain (stabbing in character, 7/10 intensity without any radiation). He notices his left leg was turning red again with increasing pain, consistent with his recurrent cellulitis. He denies any fever or chills. He denies any trauma but still have a persistent open wound behind his left knee. He has been dressing it The patient has been taking Keflex for recurrent lower leg cellulitis after being discharged from the hospital on 01/17/17 after a four night stay. Case discussed with Dr Mendoza, IV fluids given as well as antibiotics. Plan to admit given tendency to progress to sepsis. Hospital Course Du Flannery is a 41 year old male Recurrent leg cellulitis and sepsis, severe bilateral lymphedema, hypertension, rheumatoid arthritis, chronic pain, obstructive sleep apnea who presented to [facility] emergency department with increased redness on left leg and left groin pain. He had been discharged the week prior on Keflex. His antibiotics in house was IV ceftaroline then he was discharged on 300mg of cefdinir Q 12 hrs for 10 days. This was per Dr. Eddy' s suggestion (infectious disease) upon last discharge that he could be given Keflex or cefdinir. His left groin pain was treated with both osteopathic manipulative treatment and physical therapy which the patient states really helped. He was given an appointment to see Dr. Eddy and he already had an appointment to see his PCP, Dr. Alegria. 1. Acute on chronic cellulitis of left lower extremity, present on admission, acute is improving No evidence of Sepsis but previous history. Immunocompromised with likely poor circulation and Lymphedema are contributing factors to recurrent infections. Patient does not have a DVT with repeated imaging and he is not diabetic. - IV fluids resuscitations NS now discontinued - Roxycodone for pain - continue Ceftaroline IV. Per previous infectious disease note upon discharge last week, he may discharge on oral cefdinir. Will give him 300mg Q 12 hrs x 10 days. - He is to follow up at Dr. Eddy's office (infectious disease) as outpatient per his last hospitalization note (last week) 2. Hypertension, present on admission, chronic - Controlled - continued Lisinopril 10 mg bid. 3. Depression, present on admission, chronic Mood stable - continued Sertraline 100 mg daily 4 Morbid Obesity with Obstructive Sleep Apnea, present on admission, chronic - continued pulse oximetry - Pt to does not use CPAP at home - patient approved for bariatric surgery at . Follow up as outpatient 5. Chronic pain syndrome, present on admission, chronic - continuing Gabapentin 600 mg bid and Oxycodone PRN 6. Drug dependance, present on admission, chronic - Oxycodone use in outpatient, continued - Acetaminophen as needed for mild pain/fever/headache - Bowel regimen as needed - Antiemetic as needed Exam Vital Signs (Last) Date Time Temp Pulse Resp B/P Pulse Ox O2 Delivery O2 Flow Rate FiO2 01/23/17 09:09 36.3 75 18 161/78 98 Room Air Exam General: Alert, Oriented X3, Cooperative, No acute Distress, morbidly obese Eyes: PERRLA, Scleral Anicteric Mouth: Mouth Normal, Mucous Membranes Moist/[place] Neck: Supple Chest & Lungs: Distant sounds, clear to auscultation & percussion, No adventitious breath sounds, no crackles, no wheeze Cardiovascular: distant heart sounds but Normal S1, Normal S2, No Murmurs/Rubs/ Gallops, Regular Rate/Rhythm Pulses: Radial (present and equal), Dorsalis Pedi (present and equal) Abdomen: Soft, Non-tender, Non-distended, Normoactive bowel tones. Extremities: Bilateral lower extremities----Evidence of chronic venous stasis changes , thickening of skin, very dry skin. Bilateral severe lymphedema but right > left. Both lower extremities tender to palpation. Left lower leg is no longer excessively warm as it was on admission. Neurological: Grossly neurologically intact, Normal Speech, Sensation Intact Lymphatic: Lymph nodes Cervical and Axillary not palpable. Test 01/19/17 21:05 01/19/17 21:10 01/20/17 00:45 01/21/17 06:35 Hold Estrada Top Tube Received (Received) Urine Color Yellow (YELLOW) Urine Appearance Clear (CLEAR,HAZY) Urine pH 6.0 (5.0-8.0) Urine Specific [place] 1.025 (1.003-1.035) Urine Protein 100mg/dL (NEG,TRACE) Urine Glucose (UA) Negativemg/dL (NEGATIVE) Urine Ketones Negativemg/dL (NEGATIVE) Urine Occult Blood Large (NEGATIVE) Urine Nitrite Negative (NEGATIVE) Urine Bilirubin Negative (NEGATIVE) Urine Urobilinogen Normalmg/dL (NORMAL) Urine Leukocyte Esterase Negative (NEGATIVE) Urine RBC 0-2/hpf (0-2) Urine WBC 0-5/hpf (0-5) Urine Epithelial Cells None/hpf (NONE-MOD) Urine Crystals None seen (NONE SEEN) Urine Bacteria Few/hpf (NONE-FEW) Urine Hyaline Casts None/lpf (NONE) Urine Granular Casts None seen (NONE SEEN) Urine Waxy Casts None seen (NONE SEEN) Urine Red Blood Cell Casts None seen (NONE SEEN) Urine White Blood Cell Casts None seen (NONE SEEN) Urine Mucus None seen (None Seen) Urine Trichomonas None seen (NONE SEEN) Urine Yeast None (NONE SEEN) Urinalysis Comment None Urine Culture Reflexed Not indicated Hold Urine Received (Received) Total Bilirubin 0.3mg/dL (0.0-1.2) Aspartate Amino Transf (AST/SGOT) 21U/L (0-50) Alanine Aminotransferase (ALT/SGPT) 20U/L (0-44) Alkaline Phosphatase 79U/L (25-150) Total Protein 7.9g/dL (6.4-8.4) Albumin 3.5g/dL (3.4-5.0) Test 01/23/17 05:55 White Blood Count 7.6th/mm3 (3.8-10.1) Red Blood Count 4.47mil/mm3 (4.40-5.80) Hemoglobin 11.7g/dL (13.8-17.2) Hematocrit 37.8% (41.0-50.0) Mean Corpuscular Volume 84.6fL (81-100) Mean Corpuscular Hemoglobin 26.2pg (27.0-35.0) Mean Corpuscular Hemoglobin Concent 31.0% (32.0-37.0) Red Cell Distribution Width 14.2% (12.3-15.4) Platelet Count 244bil/L (150-400) Neutrophils (%) (Auto) 61.4% (40-74) Lymphocytes (%) (Auto) 25.6% (14-46) Monocytes (%) (Auto) 9.4% (4-12) Eosinophils (%) (Auto) 3.2% (0-5) Basophils (%) (Auto) 0.3% (0-3) Sodium Level 141mEq/L (134-144) Potassium Level 4.4mEq/L (3.5-5.2) Chloride Level 103mEq/L (97-108) Carbon Dioxide Level 27mmol/L (18-29) Blood Urea Nitrogen 15mg/dL (6-24) Creatinine 1.25mg/dL (0.76-1.27) Estimat Glomerular Filtration Rate 67mL/min (>59) Glucose Level 111mg/dL (60-99) Calcium Level 8.4mg/dL (8.5-10.1) Microbiology Results Blood cultures - no growth after 24 hours Discharge Medications Discharge Medications Cefdinir (Cefdinir) 300 Mg Capsule 300 MG PO BID Prescribed by: MAURICIO HERNANDEZ DO Gabapentin (Gabapentin) 600 Mg Tablet 600 MG PO BID (Reported) Lisinopril (Lisinopril) 10 Mg Tablet 10 MG PO BID Prescribed by: AMY GUPTA MD Sertraline HCl (Sertraline) 100 Mg Tablet 150 MG PO DAILY (Reported) oxyCODONE (oxyCODONE) 5 Mg Tablet 10-20 MG PO Q6H Prescribed by: CANDE PETIT MD As needed Acetaminophen (Acetaminophen) 325 Mg Tablet 325-650 MG PO Q4H PRN PRN For Fever (Reported) Loperamide (Loperamide) 2 Mg Capsule 2 MG PO Q4H PRN PRN For Diarrhea or Loose Stool (Reported) Followup Plan Disposition: Home with family Patient Instructions Follow up with infectious disease and primary care provider. Follow-up Provider: Jody Alegria MD Follow-up with PCP in: 1 week Provider: Michael Eddy MD Follow-up in: 2 weeks Attending Statement The patient was seen and examined together with Dr. Hernandez on 01/23/17 and I agree with the history, exam and plan as outlined in the note above. copies to: Supa Alegria DO; Michael Eddy MD, Janice M DO Jan 23, 2017 20:11 Luz Maria Varela DO Feb 02, 2017 17:02
== END 2017-01-23 12:10 | disposition home or self-care (01) | DRG 603 ==
LOC: SED 20:17 → MPC 01-20 01:38
PROVIDERS: ADMIT Hospitalist; ATTEND Hospitalist
DX: L03.116 Cellulitis of left lower limb (principal); F11.20 Opioid dependence, uncomplicated; Z68.45 Body mass index [BMI] 70 or greater, adult; E66.01 Morbid (severe) obesity due to excess calories; I10 Essential (primary) hypertension; G47.33 Obstructive sleep apnea (adult) (pediatric); F32.9 Major depressive disorder, single episode, unspecified; G89.4 Chronic pain syndrome

== ENCOUNTER 2017-02-12 14:23 | Inpatient (IN) | payer MEDICARE, MEDICAID ==
[~2017-02-12] VITALS: Ht 180.3 cm; Wt 277.0 kg
[2017-02-12] VITALS (8 sets, daily range): BP systolic 97–183; BP diastolic 43–58; PULSE 68–111; RESP 21–33; O2SAT 86–100
[~2017-02-12 14:23] MED LIST changes: +CEFD300C3 PO; -CEPH-512 PO
--- NOTE | 2017-02-12 15:04 | ED.REPORT ---
HPI-Rash / Abscess Date of Service Feb 12, 2017 ED Provider: Dr. Matt Pt is a 41 y/o male w/ a hx of severe morbid obesity, HTN, recurrent lower extremity cellulitis w/ sepsis, ENEDINA presenting to the ED w/ his family c/o generalized weakness and fatigue onset 2 days ago. He states his symptoms began 1 day after starting Lyrica. He takes Amoxicillin and Keflex prophylactically due to recurrent lower extremity cellulitis. He c/o increased swelling, redness , and pain of the LLE which is consistent with prior episodes of cellulitis. He is not normally on oxygen but is requiring it today in the ED. He denies nausea , vomiting, fever, chills. Nursing Notes Stated Complaint: L LEG PAIN Chief Complaint: Skin Rash/Abscess Nursing Notes Reviewed: Yes Allergies: Coded Allergies: linezolid (Verified Allergy, Intermediate, Hives, rash, itching, 02/12/17) levofloxacin (Verified Allergy, Unknown, 02/12/17) vancomycin (Verified Adverse Reaction, Intermediate, "Kidneys Shut Down", 02/12/17) Scheduled Buspirone (Buspirone) 15 Mg Tablet 7.5 MG PO BID Cephalexin (Cephalexin) 500 Mg Capsule 500 MG PO DIRECTED Lisinopril (Lisinopril) 10 Mg Tablet 10 MG PO BID Pregabalin (Lyrica) 75 Mg Capsule 75 MG PO QAM Pregabalin (Lyrica) 75 Mg Capsule 150 MG PO HS Sertraline HCl (Sertraline) 100 Mg Tablet 150 MG PO DAILY Scheduled PRN Acetaminophen (Acetaminophen) 325 Mg Tablet 325-650 MG PO Q4H PRN PRN For Fever Calcium Polycarbophil (Fiber-Caps) 625 Mg Tablet 625 MG PO DIRECTED PRN PRN For Constipation Loperamide (Loperamide) 2 Mg Capsule 2 MG PO Q4H PRN PRN For Diarrhea or Loose Stool oxyCODONE (oxyCODONE) 10 Mg Tablet 10 MG PO Q8H PRN PRN For Pain General Time Seen by MD: 15:04 Chief Complaint Rash Hx Obtained From: Patient, Son Arrived By: Wheelchair Onset Occurred: 2 days ago Symptom Duration: Since onset Location: : Lower extremity Quality: Painful Severity: Current: Mild Severity: Maximum: Mild Recent Healthcare: Previous diagnosis Similar Sx Previous: Yes Past Medical History Past Medical History Notes: Patient with multiple admissions for cellulitis Past Medical History 1. Recurrent cellulitis right lower extremity, also hx of abdominal cellulitis 2. Severe lymphedema of right lower extremity greater than left. 3. Severe Morbid obesity with BMI of 80.9 4. Hypertension. 5. Chronic pain with narcotic dependence. 6. Seasonal allergies. 7. Obstructive sleep apnea. CPAP intolerant. 8. Fibromyalgia. 9. Arthritis 10. Depression/Anxiety 11. Venous insufficiency of the lower extremities No hx of MRSA Past Surgical History Hernia repair Reports: Cholecystectomy Family History Family History Diabetes Rheumatoid arthritis Hypertension Cancer No history of TB Smoking History Never Smoker Social History Uses VR1 scooter Alcohol Use: Denies alcohol use Drug Use: Denies drug use Other Social History: Ambulatory Status Independent Review of Systems Constitutional: Denies: Chills, Fever Respiratory: Reports: Shortness of breath, Denies: Non-productive cough Cardiovascular: Denies: Chest pain, Dyspnea on exertion GI: Denies: Nausea, Vomiting Musculoskeletal: Reports: Extremity pain, Extremity swelling Skin: Reports Rash, Reports Swelling, Denies Itching Complete sys rev & neg: except as marked. Physical Exam Initial Vital Signs Vital Signs (First) Date Time Temp Pulse Resp B/P Pulse Ox O2 Delivery O2 Flow Rate FiO2 02/12/17 14:32 36.8 111 24 97/58 86 Room Air Initial VS: Reviewed, Vital signs abnormal Head / Eyes: Atraumatic, Normocephalic, PERRL ENT: Mucous membranes moist, Conjunctiva normal, No scleral icterus Neck: Supple, Full range of motion Respiratory: Breath sounds normal, Clear to auscultation, No respiratory distress Abdomen / GI: Soft Neurologic: Alert, Oriented, Nonfocal Psychiatric: Mood/affect normal, Behavior normal, Normal thought content General/Constitutional: Awake, Alert, No acute distress, Cooperative, Not toxic appearing Appearance / Presentation: Positive: Obese, morbidly Extremely morbidly obese Skin: Atraumatic Color / Condition: Positive: Rash present Rash / Lesion Notes: Marked edema bilateral lower extremities. Posterior left fox 2 x 2 cm superficial abrasion. Erythema, induration, and warmth of the left leg extending up to the knee Cardiovascular: Regular rhythm, Heart sounds NL, No gallop, No murmurs, No rubs Heart Rate / Rhythm: Positive: Tachycardia Interpretation & Diagnostics Lab Results Interpretation Result Diagram: 02/12/17 1500 02/12/17 1500 Test 02/12/17 15:00 White Blood Count 21.5th/mm3 (3.8-10.1) Red Blood Count 4.28mil/mm3 (4.40-5.80) Hemoglobin 11.0g/dL (13.8-17.2) Hematocrit 36.1% (41.0-50.0) Mean Corpuscular Volume 84.3fL (81-100) Mean Corpuscular Hemoglobin 25.7pg (27.0-35.0) Mean Corpuscular Hemoglobin Concent 30.5% (32.0-37.0) Red Cell Distribution Width 14.8% (12.3-15.4) Platelet Count 287bil/L (150-400) Neutrophils (%) (Auto) 88.3% (40-74) Lymphocytes (%) (Auto) 4.3% (14-46) Monocytes (%) (Auto) 6.8% (4-12) Eosinophils (%) (Auto) 0.1% (0-5) Basophils (%) (Auto) 0.1% (0-3) Sodium Level 135mEq/L (134-144) Potassium Level 4.6mEq/L (3.5-5.2) Chloride Level 98mEq/L (97-108) Carbon Dioxide Level 22mmol/L (18-29) Blood Urea Nitrogen 34mg/dL (6-24) Creatinine 2.93mg/dL (0.76-1.27) Estimat Glomerular Filtration Rate 25mL/min (>59) Glucose Level 132mg/dL (60-99) Lactic Acid Level 2.4mmol/L (0.4-2.0) Calcium Level 8.7mg/dL (8.5-10.1) Phosphorus Level 4.8mg/dL (2.5-4.9) Magnesium Level 2.0mg/dL (1.6-2.6) Total Bilirubin 0.3mg/dL (0.0-1.2) Aspartate Amino Transf (AST/SGOT) 29U/L (0-50) Alanine Aminotransferase (ALT/SGPT) 27U/L (0-44) Alkaline Phosphatase 67U/L (25-150) Troponin T < 0.010ug/L (0.0-0.011) Total Protein 8.1g/dL (6.4-8.4) Albumin 3.1g/dL (3.4-5.0) Procalcitonin 8.21ng/mL (0.00-0.08) ECG Interpretation ECG Interpretation: Sinus tachycardia rate 104 Time: 15:15 Interpreted by: ED physician Normal ECG Interpretation: Normal sinus rhythm, No acute ischemic changes, Normal QRS, Normal axis, Normal intervals, No change from prior ECGs, Adequate tracing X-Ray Chest Interpretation Chest Xray Interpretation: IMPRESSION: No acute cardiopulmonary disease process. Dictated by: Ary Trejo MD, PhD on 02/12/2017 at 15:30 Approved by: Ary Trejo MD, PhD on 02/12/2017 at 15:31 View: Portable, 1 view Interpretation / Wet Read by: Interpret - Radiologist Re-Eval/Medical Decision Med Decision/Clinical Course Pt is a 41 y/o male w/ a hx of severe morbid obesity, HTN, recurrent lower extremity cellulitis w/ sepsis, ENEDINA presenting to the ED w/ his family c/o generalized weakness and fatigue onset 2 days ago. He states his symptoms began 1 day after starting Lyrica. He takes Amoxicillin and Keflex prophylactically due to recurrent lower extremity cellulitis. He c/o increased swelling, redness , and pain of the LLE which is consistent with prior episodes of cellulitis. He is not normally on oxygen but is requiring it today in the ED. He denies nausea , vomiting, fever, chills. Upon arrival the patient is borderline tachycardic with a heart rate in the low 100s and borderline hypotensive with a pressure in the high 90s to low 100s systolic. He is satting in the high 80s to low 90s on room air though when he falls asleep quickly desats into the mid 70s. He was placed on 4 L by nasal cannula. Labs notable as below: CBC: leukocytosis of 21.5, HCT of 36.1 CMP: Acute kidney injury with BUN of 34 and creatinine of 2.93, no significant electrolyte abnormalities Lactic acid: 2.4 At this time presentation concerning for sepsis secondary to lower extremity cellulitis. 2 sets of blood cultures drawn and patient started on IV ceftriaxone and IV fluids. I do not feel that coverage for MRSA is immediately indicated though he may need to have his antibiotics broadened. He has had kidney injury secondary to vancomycin in the past and given his kidney function at this time I do not feel that it is prudent to immediately start vancomycin. The patient is quite somnolent this may be related to recent medication changes which is the suspicion of his family though at this time his presentation is related to sepsis until proven otherwise. Patient was discussed with admitting hospitalist and admitted for further management. Re-Evaluation/Progress #1: Time of Eval: 15:30 Re-Evaluation/Progress Note: Pt rechecked. Informed pt of need for admission. Pt understands and agrees with plan for admission. All questions addressed. Re-Evaluation/Progress #2: Time of Eval: 16:07 Re-Evaluation/Progress Note: Pt rechceked. Oxygen decreased to high 70s to low 80s while sleeping. Consultation : Referral / Consult Name: Supa Swift MD Consulted With: Hospitalist Call Returned at: 15:30 Manager Of Internal: Will see patient, Agrees with eval, Agrees with plan, Accepts admit Counseled Regarding: Diagnosis, Lab results, Need for admission Discharge & Departure Impression: Primary Impression: Sepsis Additional Impressions: Left leg cellulitis Morbid obesity with BMI of 70 and over, adult Chronic acquired lymphedema SYDNEY (acute kidney injury) Disposition: ADMITTED TO HOSPITAL Discharge Condition All VS Reviewed: Yes Condition: Stable Referrals: Supa Alegria DO (PCP) Crit Care Except Billable Proc Time Spent: 105-134 minutes Services Performed: Patient management by me, Time spent at bedside, Reviewing test results, Reviewing imaging, Discussing patient care, Documentation in record, Time with fam/surrogate Scribe Attestation Portions of this note were transcribed by Devin Adair. I, Dr. Matt personally performed the history, physical exam and medical decision-making; I reviewed and confirmed the accuracy of the information in the transcribed note. Signed by Geoff Hill, 02/12/17 - 0519 copies to: Supa Alegria Beck O MD Feb 12, 2017 15:04 DEVIN ADAIR Feb 12, 2017 15:27
[2017-02-12 15:15] LABS: BASOPHILS % (AUTO) 0.1 % (0-3); EOSINOPHILS % (AUTO) 0.1 % (0-5); MONOCYTES % (AUTO) 6.8 % (4-12); Mean Corpuscular Hemoglobin 25.7 pg (27.0-35.0); Mean Corpuscular Volume 84.3 fL (81-100); NEUTROPHILS % (AUTO) 88.3 % (40-74); Platelet Count 287 bil/L (150-400)
--- NOTE | 2017-02-12 15:32 | DRSVH ---
PROCEDURE: X-RAY CHEST ONE VIEW, PORTABLE ([id number]) INDICATIONS: Shortness of breath. TECHNIQUE: One view of the chest was acquired. COMPARISON: [facility], CR, XR CHEST 1VW (PORTABLE), 11/05/2016, 8:56. FINDINGS: Surgical changes and devices: None. Lungs and pleura: No pleural effusions or pneumothorax. Lungs are clear. Elevation right hemidiaphr agm and stable compared to prior examination. Mediastinum: Mediastinal contours appear normal. Heart size is normal. Bones and chest wall: No suspicious bony lesions. Overlying soft tissues appear unremarkable. IMPRESSION: No acute cardiopulmonary disease process. Dictated by: Ary Trejo MD, PhD on 02/12/2017 at 15:30 Approved by: Ary Trejo MD, PhD on 02/12/2017 at 15:31
[2017-02-12] MEDS ORDERED: cefTRIAXone Inj 2,000 MG in Dextrose 5% 50 ML IV STA (15:40)
[2017-02-12] MEDS ORDERED: Vancomycin Dose per Pharmacist XX ONE (15:40)
[2017-02-12] MEDS ORDERED: Ondansetron 2 mg/mL 2 mL Inj IVPUSH PRN ×2 (15:50→16:30)
[2017-02-12] MEDS ORDERED: Alum-Mag Hydrox-Simeth 30 mL Suspension PO PRN ×2 (15:50→16:30)
[2017-02-12 15:57] LABS: TROPONIN T < 0.010 ug/L (0.0-0.011)
[2017-02-12] MEDS ORDERED: 0.9% Sodium Chloride 1,000 ML IV SCH (16:28)
[2017-02-12] MEDS ORDERED: Polyethylene Glycol (PEG) 17 Gm Powder PO PRN (16:30)
--- NOTE | 2017-02-12 16:43 | PCM.HPMED ---
Subjective Date of Service Feb 12, 2017 Primary Provider: Admitting Physician: Primary Care Physician: Michael Corey DO Attending Physician: Admit Status: From the Emergency Department Chief Complaint: Left lower extremity swelling with increased redness and pain History of Present Illness: 41-year-old male with chronic lower extremity lymphedema and severe morbid obesity presents with acute on chronic left leg cellulitis followed by infectious diseases an outpatient. The patient was last seen by infectious disease on February 04 and has been on amoxicillin prophylactically for cellulitis of the left lower extremity. Patient states that over the last several days he has noticed increased redness, swelling, pain of the left lower extremity. The pain was as high as his groin which is not unusual for this patient. The patient denies any ongoing fever or chills, sore throat, runny nose, cough, shortness of breath, chest pain, nausea, vomiting, diarrhea or constipation. The patient has an appointment with bariatric surgery at [facility] on February 17. Review of Systems: Comprehensive review of systems was completed and all are negative except for what included in the history of present illness Allergies Coded Allergies: linezolid (Verified Allergy, Intermediate, Hives, rash, itching, 02/12/17) levofloxacin (Verified Allergy, Unknown, 02/12/17) vancomycin (Verified Adverse Reaction, Intermediate, "Kidneys Shut Down", 02/12/17) Home Medications Amoxicillin 500 mg by mouth twice a day prophylaxis for cellulitis Just finished on February 04 Cefdinir (Omnicef) 300 Mg Capsule 300 MG PO BID treatment of cellulitis Gabapentin (Gabapentin) 600 Mg Tablet 600 MG PO BID (Reported) Lisinopril (Lisinopril) 10 Mg Tablet 10 MG PO BID Sertraline HCl (Sertraline) 100 Mg Tablet 150 MG PO DAILY (Reported) oxyCODONE (oxyCODONE) 5 Mg Tablet 10-20 MG PO Q6H As needed Acetaminophen (Acetaminophen) 325 Mg Tablet 325-650 MG PO Q4H PRN PRN For Fever (Reported) Loperamide (Loperamide) 2 Mg Capsule 2 MG PO Q4H PRN PRN For Diarrhea or Loose Stool (Reported) Additional med instructions buspirone 7.5 mg tablet take 1 Tablet by oral route 2 times every day gabapentin 600 mg tablet 1 tablet three times daily, slowly increase to 2 tablets three times daily hydroxyzine HCl 25 mg tablet take 1 tablet by oral route 3 times every day PRN anxiety lisinopril 10 mg tablet take 1 tablet by oral route 2 times daily metformin 500 mg tablet take 1 tablet by oral route 2 times every day with morning and evening meals methocarbamol 500 mg tablet take 2 tablet by oral route 2 times every day nystatin 100,000 unit/mL oral suspension take 5 milliliter by oral route 4 times every day oxycodone 10 mg tablet take 1 tablet by oral route every 8 - 12 hours sertraline 100 mg tablet take 1.5 tab po daily PMH 1. Recurrent cellulitis right lower extremity, also hx of abdominal cellulitis 2. Severe lymphedema of right lower extremity greater than left. 3. Severe Morbid obesity with BMI of 80.9 4. Hypertension. 5. Chronic pain with narcotic dependence. 6. Seasonal allergies. 7. Obstructive sleep apnea. CPAP intolerant. 8. Fibromyalgia. 9. Arthritis 10. Depression/Anxiety 11. Venous insufficiency of the lower extremities 12. Insomnia 13. Nephrotic syndrome with minor glomerular abnormality 14 or erectile dysfunction 15 diabetes mellitus type II not insulin-dependent No hx of MRSA Surgical History Hernia repair Cholecystectomy Family History Father - diabetes Mother - Hypertension, diabetes, stroke Social History Hx Alcohol Use: No Hx Substance Use: No Hx Tobacco Use: No Smoking Status: Never Smoker Living Arrangement: with Family Exam Vital Signs Vital Sign - Last Date Time Temp Pulse Resp B/P Pulse Ox O2 Delivery O2 Flow Rate FiO2 02/12/17 15:56 37.1 108 33 106/43 90 Room Air Exam General: morbidly obese, Alert, Oriented X3, Cooperative, mildly somnolent during interview, No acute Distress Eyes: PERRLA, Scleral Anicteric Mouth: Mouth Normal, Mucous Membranes Moist/[place] Neck: Supple, no Thyromegaly, trachea central. Chest & Lungs: Clear to auscultation & percussion, No adventitious breath sounds, no crackles, no wheeze Cardiovascular: distant heart sounds but Normal S1, Normal S2, No Murmurs/Rubs/ Gallops, Regular Rate/Rhythm Abdomen: Soft, Non-tender, Non-distended, Normoactive bowel tones. Musculoskeletal: Unremarkable. Normal range of motion, no swollen or erythematous joints Extremities: Bilateral lower extremities----Evidence of chronic venous stasis changes , thickening of skin, very dry skin. Bilateral severe lymphedema right worse than left. Both lower extremities tender to palpation Skin: Chronic skin changes with induration and roughening around lower extremities, left lower extremity with redness and weeping with multiple areas of skin breakdown no purulent discharge noted, right lower extremity with cutoff sign around ankle consistent with lymphedema, numerous upper body tattoos Neurological: Grossly neurologically intact, has generalized weakness, Normal Speech, Sensation Intact Lymphatic: Lymph nodes Cervical and Axillary not palpable. Groin: no sign of skin breakdown below pannus, no redness, significant diaphoresis in the folds, no malodorous notes of infection, no davidson in place Lab and Diagnostics Result Diagram: 02/12/17 1500 02/12/17 1500 Microbiology Records indicate no previous bacteremia X-Rays, CTs and MRIs PROCEDURE: X-RAY CHEST ONE VIEW, PORTABLE ([id number]) IMPRESSION: No acute cardiopulmonary disease process. Dictated by: Ary Trejo MD, PhD on 02/12/2017 at 15:30 Approved by: Ary Trejo MD, PhD on 02/12/2017 at 15:31 Additional Diagnostics: DateTimeAnalyzed 18:50:00 -_ pH ____7.119 - 7.350 7.450 pCO2 ___85.3__ -mmHg 35.0 45.0 pO2 ___82.1__ -mmHg 69.0 116 HCO3- ___26.5__ -mmol/L 22.0 26.0 Assessment & Plan Du Flannery is a 41 year old male Recurrent leg cellulitis and sepsis, severe bilateral lymphedema, hypertension, rheumatoid arthritis, chronic pain, obstructive sleep apnea who presents to [facility] emergency department with increased redness on left leg. 1. Severe sepsis, present on admission, acute - SIRS criteria met with Pulse of 111, respiratory rate of 33, white cell count of 21,500 at admission with lactic acid of 2.4 - Likely secondary to acute on chronic cellulitis of left lower extremity - Normal saline at 125 mL per hour - Trend lactate - Review of records indicate no prior bacteremia noted besides skin contaminant - Blood cultures ordered pending - Treat underlying infection described below - ABG ordered shows acidosis with significant CO2 retention likely a acute on chronic change 2. Acute on chronic cellulitis of left lower extremity, present on admission, ongoing - poor circulation and Lymphedema are contributing factors to recurrent infections. Patient has not ever had a DVT with repeated imaging. -Pt discharged from [facility] on 01/23/2017 for cellulitis, discharged on cefdinir which was taken for 10 day course -Pt has been taking Amoxicillin daily since being seen by infectious disease on February 04 -Significant leukocytosis on admission. Afebrile and hemodynamically stable. -Lactic acid normal at 2.4, trending this value -IVF NS 125mls/hr -Blood cultures pending -ASO pending -MRSA screen pending -Procalcitonin greater than 8 and admission -ID( Dr Eddy) Consult given history of recurrent infections - Ceftriaxone started in emergency department switched to ceftaroline consistent with prior hospitalization, again no record of MRSA 3. Acute kidney injury on chronic kidney disease - Chronic kidney disease likely stage II, with baseline creatinine approximately 1.1-1.3 - Creatinine of 2.93 admission - IVF NS 125mls/hr 4. Hypertension, chronic - Monitor and hold home medication until more normotensive - We will continue Lisinopril 10 mg bid when helped improve 5. Depression, chronic - continue Sertraline 100 mg daily 6 severe morbid Obesity - continue pulse oximetry - Pt to does not use CPAP at home - patient approved for bariatric surgery at with appointment scheduled for February 17 7. Chronic pain syndrome - continuing Gabapentin 600 mg bid and Oxycodone PRN 8 Obstructive Sleep Apnea, chronic - RT instructed to provide BiPAP overnight - Acetaminophen as needed for mild pain/fever/headache - Bowel regimen as needed - Antiemetic as needed Patient admitted under inpatient status with expected length of stay > 2 midnights for severity of present symptoms, complexities of treatment plan and risk for adverse event Pain Evaluation: Adequate Pain Control GI Prophylaxis: H2 sendy VTE Prophylaxis Indicated: Meets Criteria for Anticoag Therapy VTE Prophylaxis: Sub-Q Heparin (Unfractionated) VTE Mechanical Devices: Intermittant Pneumatic CD (right leg only) Resuscitation Status: CPR: Attempt Resuscitation Attending Statement The patient was seen and examined together with Dr. Devi on 02/12/2017 and I agree with the history, exam and plan as outlined in the note above. . Charlie Devi DO Feb 12, 2017 16:43 Rod Grimaldo MD Feb 15, 2017 08:42
[2017-02-12 16:51] LABS: Phosphorus 4.8 mg/dL (2.5-4.9)
[2017-02-12] MEDS ORDERED: PREG75CA PO ×2 (16:56)
[2017-02-12] MEDS ORDERED: BUSP15TA3 PO (16:56)
[2017-02-12] MEDS ORDERED: OXYC10TA8 PO (16:57)
[2017-02-12] MEDS ORDERED: CEPH500C PO (17:03)
[2017-02-12] MEDS ORDERED: 0.9% Sodium Chloride 1,000 ML IV ONE (17:15)
[2017-02-12] MEDS ORDERED: CALC625T83 PO (18:15)
[2017-02-12] MEDS: Heparin 5,000 Unit/mL Inj SUBQ SCH (18:17)
[2017-02-12] MEDS: Sodium Chloride LOK Flush 10 mL Syringe IVFLUSH SCH (18:18)
[2017-02-12] MEDS: 0.9% Sodium Chloride 1,000 ML IV SCH (18:18)
--- NOTE | 2017-02-12 18:32 | NUR ---
Admit nurse note Admission assessment completed with 's assistance as pt. is somnolent, waking only briefly to verbal stimuli. states he started to be somnolent yesterday morning (after stopping his lyrica the night before) and then last night she had a hard time waking him up. The family became worried when they noticed his L lower leg was red. "He only takes his antibiotics when his leg bothers him. He doesn't take them as prescribed." Pt. transfers himself from [facility] to bariatric bed. states he walks short distances and uses a scooter for longer stretches. Allergies verified with family. Medications verified with , who will go home and recheck the frequency and strength of lisinopril and sertraline, as these two are slightly unclear. per pt. has not used his CPAP is approx 10 years and is waiting for a new sleep study in order to get a new CPAP. Sleep apnea protocol to be initiated. Report given to primary RN.
--- NOTE | 2017-02-12 18:36 | NUR ---
Social Work Referral requests that pt. be started on blister packs for his medication so his med compliance will increase and so that she and her children will be able to monitor his administration. Message left with manager social responsibility to look in to starting this process on discharge.
--- NOTE | 2017-02-12 18:54 | ABG ---
DateTimeAnalyzed 18:50:00 -_ pH ____7.119 - 7.350 7.450 pCO2 ___85.3__ -mmHg 35.0 45.0 pO2 ___82.1__ -mmHg 69.0 116 HCO3- ___26.5__ -mmol/L 22.0 26.0 ABE ___-4.2__ -mmol/L -2.0 2.0 tHb ___11.0__ -g/dL O2Hb ___92.2__ -% COHb ____1.3__ -% MetHb ____1.0__ -% sO2 ___94.4__ -% 25.0 FIO2 ___50.0__ -% Drawn By as - Date/Time Notified____ 18:53:00 -_ Spontaneous_RR ____8.0__ -b/min Liter_Flow ____8.0__ -L/min Oxygen Device 1 __oxymask - Notified By ams - Notified Whom dr de la houssaye -___ B 754 -mmHg tO2 ___14.4__ -Vol% Zoltan test _Positive -
--- NOTE | 2017-02-12 19:51 | NUR ---
Transfer Pt Transferred via Juan bed to 2012 at 1920, gave report to Antonio HELMS at 1925.
[2017-02-12] MEDS: Ceftaroline Inj 600 MG in Dextrose 5% 250 ML IV SCH ×2 (20:30→21:09)
[2017-02-12 21:44] LABS: APPEARANCE,URINE CLOUDY (CLEAR,HAZY); COLOR,URINE BLOODY (YELLOW); OCCULT BLOOD,URINE LARGE (NEGATIVE); UROBILINOGEN,URINE NORMAL (NORMAL)
[2017-02-12] MEDS: BusPIRone 15 mg Dividose Tablet PO SCH (22:43)
[2017-02-13] VITALS (12 sets, daily range): BP systolic 111–142; BP diastolic 57–80; PULSE 73–90; RESP 20–24; O2SAT 95–100
--- NOTE | 2017-02-13 00:20 | CONS ---
[address] [address] CONSULTATION REPORT PATIENT: PO DELGADO : 1975 MR#: [id number] ADMIT: 02/12/2017 JOB ID: [id number] DATE OF SERVICE: 02/12/2017 INFECTIOUS DISEASE CONSULTATION: I thank Dr. Grimaldo for this timely consult. REASON FOR CONSULTATION: Recurrent left lower extremity infection in a patient with super morbid obesity, as well as encephalopathy. HISTORY OF PRESENT ILLNESS: The patient is a roughly 600 pound gentleman who is known to me from many outpatient and inpatient visits. He has had multiple problems with recurrent cellulitis, primarily involving his left lower extremity. Cultures and serologies have in the past sometimes revealed that this is due to group A strep and there have been attempts to prophylax with amoxicillin and/or Keflex to try and prevent recurrences, but these have largely been unsuccessful. It has been suggested the patient to go for bariatric surgery. He, in fact, has an appointment scheduled for that next week in [place]. I saw the patient recently in clinic and he was doing quite well. He was planning to take prophylactic amoxicillin to prevent recurrent infections at that time, but it appears he has not been completely compliant with this plan. The patient and his family report he was in his usual state of health until two days ago when he was given Lyrica for chronic neuropathy and pain control. Following starting Lyrica, which was a new medicine for him, he developed weakness, fatigue, sleepiness and generalized lethargy. He also complained of some dizziness, but was not disoriented or confused. He also noted that he was developing increased redness and tenderness in the left lower leg between the knee and the ankle, which is the usual location for his recurrent soft tissue infections which have landed him in the hospital before. The patient reports that in the day or two leading up to this admission he has felt a sensation of generalized warmth, but no chills or rigors. He has not had any significant sore throat, cough, chest pain, nausea, vomiting, or diarrhea. PAST MEDICAL HISTORY: 1. Super morbid obesity with BMI in the 80s and weight about 600 pounds. 2. 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 Multiple admissions in the past year. 3. Lymphedema and venous insufficiency in lower extremities. 4. Hypertension. 5. Fibromyalgia. 6. Back pain. 7. Depression. 8. Sleep apnea. SOCIAL HISTORY: The patient is disabled by virtue of back pain and super morbid obesity. He does not smoke or drink. Lives with his and three children. FAMILY HISTORY: Negative for TB in his first-degree relatives. REVIEW OF SYSTEMS: The patient reports he has been very sleepy lately, but no significant headache, no visual complaints. No sore throat, cough, shortness of breath, chest pain, nausea, vomiting, or diarrhea. He has noticed increased pain and redness in his left lower extremity below the knee as noted. Remainder of review of systems negative. PHYSICAL EXAMINATION: Reveals a massively obese gentleman, lying supine in a hospital bed. His temperature is 37.7 axillary. Pulse 110. Respiratory rate in the 20s. Blood pressure 183/50. He is saturating well but he is requiring high-flow mask. The patient is oriented, but lethargic, and rapidly will drift away from the conversation or to sleep when not stimulated. Examination of the head shows no trauma. Eyes without conjunctivitis. No pharyngitis. Neck is massive and difficult to examine. Lungs: Fair airflow, clear bilaterally. Cardiac: No murmurs are appreciated. Abdomen: Extremely obese without any focal masses or findings. No panniculitis is appreciated. No Reddy catheter is present. The extremities are notable for lymphedema and venous stasis changes bilaterally. The left lower extremity below the knee has some abrasions and excoriations on the back side of the calf. That entire calf, as compared to the right side, is warm and has a brawny appearance. The feet are uninvolved in this process. LABORATORIES: Include white count 21,000. Note that on his last admission two weeks ago his white count was consistently [id number]. Platelets 287. His creatinine has jumped to 2.93 from his normal 1.25. Procalcitonin is 8.2. Note that a month ago his procalcitonin was 0. Urinalysis without pyuria. Streptozyme levels have been done many times in the past three months, they are consistently in the 400-500 range, consistent with a recent severe strep infection or ongoing group A strep infections. No microbiology has been obtained yet. A chest x-ray done today shows no infiltrate. IMPRESSION: This unfortunate super morbidly obese gentleman with recurrent soft tissue infections and sepsis syndrome now presents with change in mental status over the past couple days with hypersomnolence which is associated with starting Lyrica. It is also associated unfortunately with increased pain and erythema below the left knee, which is his typical sepsis presentation. We now have a very elevated white blood count, which is new from two weeks ago, as well as a grossly elevated procalcitonin suggesting that he is or is about to become septic. The most likely source is his leg, and in the past our cultures have been largely negative, though we do have ASO titers to suggest that this is a group A beta-hemolytic strep. RECOMMENDATIONS: 1. Blood gas will be obtained. 2. This patient should be closely watched with his abnormal mental status and super morbid obesity as high risk of becoming hypercarbic, apneic and requiring ventilatory support. 3. Blood cultures will be obtained. 4. Will start the patient on ceftaroline 600 mg IV q.8 h. Thank you very much for this consult.
[2017-02-13] MEDS: Sodium Chloride LOK Flush 10 mL Syringe IVFLUSH SCH ×3 (00:30→16:30)
--- NOTE | 2017-02-13 00:56 | ABG ---
DateTimeAnalyzed 00:52:00 -_ pH ____7.220 - 7.350 7.450 pCO2 ___63.4__ -mmHg 35.0 45.0 pO2 ___45.5__ -mmHg 69.0 116 HCO3- ___25.0__ -mmol/L 22.0 26.0 ABE ___-3.0__ -mmol/L -2.0 2.0 tHb ___10.4__ -g/dL O2Hb ___79.4__ -% COHb ____1.1__ -% MetHb ____0.9__ -% sO2 ___81.0__ -% 25.0 FIO2 ___40.0__ -% Set_RR ___20.0__ -b/min Drawn By RB - Date/Time Notified____ 00:56:00 -_ Spontaneous_RR ___25.0__ -b/min Oxygen Device 1 ___BI PAP - Notified By RB - Notified Whom RACHEL C, RN - B 753 -mmHg tO2 ___11.6__ -Vol% Zoltan test _Positive -
[2017-02-13] MEDS: Heparin 5,000 Unit/mL Inj SUBQ SCH ×3 (01:07→17:22)
[2017-02-13] MEDS: 0.9% Sodium Chloride 1,000 ML IV SCH ×3 (01:07→19:54)
[2017-02-13 04:46] LABS: BASOPHILS % (AUTO) 0.1 % (0-3); EOSINOPHILS % (AUTO) 0.8 % (0-5); MONOCYTES % (AUTO) 9.4 % (4-12); Mean Corpuscular Hemoglobin 25.7 pg (27.0-35.0); Mean Corpuscular Volume 85.8 fL (81-100); NEUTROPHILS % (AUTO) 75.8 % (40-74); Platelet Count 234 bil/L (150-400)
--- NOTE | 2017-02-13 06:05 | NUR ---
Respiratory Requiring BiPAP for airway support on arrival to floor. See chart for ABG's. Patient and family educated on importance of strict compliance with BiPAP use until instructed that he can be removed from machine. Patient and family both gave verbal understanding and have been compliant with use this shift.
[2017-02-13] MEDS: Ceftaroline Inj 600 MG in Dextrose 5% 250 ML IV SCH ×2 (08:28→20:47)
[2017-02-13] MEDS: BusPIRone 15 mg Dividose Tablet PO SCH ×2 (08:30→20:30)
[2017-02-13 09:10] LABS: Creatine Kinase 86 U/L (21-232)
--- NOTE | 2017-02-13 10:16 | PROG NOTE ---
[address] [address] PROGRESS NOTE PATIENT: PO DELGADO : 1975 MR#: [id number] ADMIT: 02/12/2017 JOB ID: [id number] DATE: 02/13/2017 INFECTIOUS DISEASE FOLLOW UP NOTE: REASON FOR FOLLOW UP: Sepsis secondary to left lower extremity cellulitis complicated by respiratory failure, and now acute renal failure. INTERVAL HISTORY: Recall this is our 41-year-old super massively obese gentleman with BMI approaching 90. He has been admitted numerous times with severe cellulitis of the left lower extremity as well as obesity hypoventilation syndrome. He was readmitted again yesterday with worsening of his left lower extremity cellulitis as well as respiratory difficulties. We saw him yesterday on the hoang and were involved in his transfer to the [facility] because of his hypoventilation and actual encephalopathy which we believed was on the basis of either sepsis relating from his left leg infection and/or hypoventilation. Since moving to the ICU, the patient's mental status has brightened as he is on BiPAP and he denies being significantly short of breath. He says he thinks his left lower extremity cellulitis is already starting to improve too as it is less painful and his fevers have improved. The major concern this morning though is he notes he has not produced any urine except one small amount that he passed yesterday evening. PHYSICAL EXAMINATION: The patient is lying supine in his [facility] bed. He is using a BiPAP and ventilating quite well. Current O2 sat 99% on 40% BiPAP. He is afebrile. After a temperature spike to 38.1 last night, he is afebrile this morning at 36.4, pulse in the 70s, respiratory rate 20, blood pressure 111/64. He is awake and alert this morning and does not have any trace of the encephalopathy he seemed to have last night. He does not like the mask though and says it is irritating his eyes, and in fact, he is starting to develop some conjunctivitis. The breath sounds are equal and fairly good today. Cardiac tones distant but regular. Abdomen massively obese, nontender. Left lower extremity cellulitis. Obviously still present but there is less erythema and tenderness than there was last night and there is no sign of necrotizing fasciitis. LABORATORIES: Include white count 10,000 down from 21 yesterday. His differential is also better. Instead of 90% segs, he has 75. Unfortunately the patient's creatinine has jose rocketed. It has gone from 2.9 yesterday to 3.9 today indicating something approaching complete renal failure which goes along with his history of no urine output. Hemoglobin A1c 6.6, lactic acid 1.1. CPK 86. Streptozyme 493. Note that his streptozyme is always between 4 and 500, and I am uncertain what that means. MRSA PCR screen of the nose negative. Blood cultures negative. IMAGING: Includes a chest radiograph done yesterday which shows no acute infiltrate. IMPRESSION: This is a very will worrisome 41-year-old gentleman with super morbid obesity was readmitted yesterday for more left lower extremity cellulitis associated with elevated procalcitonin, leukocytosis and fever as well as hypoventilation which is likely on the basis of his BMI of 90. He has improved overnight greatly with respect to his mental status and respiratory status here in the [facility] and his leg seems to be improving on the empiric ceftaroline, but his renal function is very poor and he is now obviously in acute renal failure. I would presume his acute renal failure is on the basis of sepsis, but is also notable that he started Lyrica as a new medicine just prior to these events. RECOMMENDATIONS: 1. I would consult nephrology and we have communicated this to the team. 2. Will continue with ceftaroline 600 q.12, but we will soon be forced to reduce the dose because of his renal failure. Note that 600 q.12 is too much for someone with a creatinine rising this fast, but in view of his large size, I think it is probably reasonable to continue with this dose for a little bit longer and then cut back the dose tomorrow if his renal function does not improve. 3. Will continue to follow his cultures and his overall clinical course. 4. This case discussed in detail with the hospitalist team and we will discuss later with Nephrology.
--- NOTE | 2017-02-13 10:39 | NUR ---
Reddy Pt refused getting a catheter placed. UA sent, pt voided 100 mls dark urine. MD aware. Unable to bladder scan due to pt size.
--- NOTE | 2017-02-13 13:12 | NUR ---
Social Work-initial assessment: Data & Assessment: See initial assessment. EMR Reviewed. Pt is a 41 y/o male who was admitted on 02/12/17 for LLE Cellulitis per H&P. Pt's insurance is [employer] and PCP is Michael Corey MD. SW met with pt, and patient s at bedside to discuss discharge planning, SW role explained and initial assessment complete. Pt is alert and oriented x3. Pt resides at home with in a single level home with three steps to enter where pt remains independent with basic ADLs. Pt does drive. Pt has no HH or SNF history. Pt has not completed DPOA/ advanced directive and is not interested in information. Pt has no jail care or VA benefits. Pt's family have been assisting her at home if needed. SW discuss HH services and bed bug exterminator care planning,and patient does not have a preference for home health if it is needed. Pt's family to provide transport home at discharge. SW provided phone number and plan on white board in room. SW will continue to follow. Plan: Pt to likely discharge home no needs, but SW will rule out HH. Pt's family is supportive. SW will continue to follow. Asmita Kelley LMSW, TAMI Addendum: 02/13/17 at 1323 by ASMITA KELLEY Amended: Links added.
[2017-02-13 13:44] LABS: INR 0.99 ratio
[2017-02-13 13:54] LABS: APPEARANCE,URINE TURBID (CLEAR,HAZY); COLOR,URINE BLOODY (YELLOW)
[2017-02-13 13:55] LABS: OCCULT BLOOD,URINE LARGE (NEGATIVE)
[2017-02-13 13:59] LABS: UROBILINOGEN,URINE NORMAL (NORMAL)
--- NOTE | 2017-02-13 16:09 | CONS ---
[address] [address] CONSULTATION REPORT PATIENT: PO DELGADO : 1975 MR#: [id number] ADMIT: 02/12/2017 JOB ID: [id number] DATE OF SERVICE: 02/13/2017 NEPHROLOGY CONSULTATION: REQUESTING PHYSICIAN: Dr. Grimaldo REASON FOR CONSULTATION: Management of abnormal kidney function. CHIEF COMPLAINT: Left lower extremity swelling and redness. PRESENT ILLNESS: This is a 41-year-old male with significant past medical history of morbid obesity with a BMI of 87, chronic lower extremity lymphedema, recurrent skin and soft tissue infection of the lower extremity, hypertension, sleep apnea who presented to the hospital with the complaint of left lower extremity swelling, redness and tenderness. Per record the patient has had extensive hospitalizations mainly due to recurrent skin and soft tissue infections. He is well known to Dr. Michael Eddy. Antibiotic prophylaxis including amoxicillin and oral Keflex were attempted but without any success. The patient reported having fatigue and generalized weakness over the past couple of days. He stated that he has had worsening left lower extremity tenderness, swelling and redness. The patient was admitted and has been again treated for lower extremity cellulitis. His initial vitals was temperature of 36.8, pulse of 111, respiratory rate of 24, blood pressure of 97/58, and O2 sat of 86 on room air. Overnight, he spiked a fever with a T-max of 38.1. He received IV fluid overnight and that has improved his blood pressure. Of note, the patient has been on lisinopril for the blood pressure a number of years. The last dose was given also this morning. There was no IV contrast given over the past 48 hours. In review of his records, the patient has had hematuria more than 10 years. His urine always showed hematuria since 2004. The patient was evaluated by a cnc technician. The last visit with his cnc technician was in 2014. The patient was known to have chronic hematuria and proteinuria. The patient had CONSTANZA, ANCA, C3, C4, SPEP, hepatitis C, hepatitis B tested negative in 2012. He also had history of intermittent gross hematuria. The patient also had cystoscopy performed and that was negative in the past. According to the record, he likely has chronic glomerulonephritis secondary to IgA nephropathy. However, he never had a kidney biopsy done given his body habitus. It seems like patient has been on lisinopril for a number of years. The patient had history of acute kidney injury in the past during the previous hospitalizations when he was treated for the lower extremity infections. The patient had the last echocardiogram done in October 2016. Showed ejection fraction of 60%- 65%, mild concentric left ventricular hypertrophy, E:A ratio is reversed, suggesting impaired early relaxation of left ventricle or a reduced pre load state. Moderately dilated left atrium. The patient has elevated serum IgA, 740 mg/dL, the test was done in September 2016. His baseline serum creatinine have ranged between 1.0-1.2. He came in with the serum creatinine of 2.93. Today jumped quickly to 4.12. PAST MEDICAL HISTORY: 1. Chronic glomerulonephritis, presumably IgA nephropathy, patient never had a kidney biopsy. 2. Morbid obesity with a BMI of 87. 3. Recurrent skin and soft tissue infection of the lower extremity. 4. Chronic lymphedema. 5. Hypertension. 6. Sleep apnea. 7. Hypoventilation syndrome. SURGICAL HISTORY: 1. Status post cholecystectomy. 2. Hernia repair. FAMILY HISTORY: Positive for diabetes, hypertension and stroke in the family. SOCIAL HISTORY: Denies current use of alcohol, tobacco, illicit drugs. The patient has multiple tattoos. ALLERGIES: 1. LEVOFLOXACIN. 2. LINEZOLID. 3. VANCOMYCIN. REVIEW OF SYSTEMS: A 14 point review of system was performed. PHYSICAL EXAM: Vitals: Temperature 37.1, pulse 68, respiratory 20, blood pressure 104/46, O2 sat 99% on BiPAP, O2 sat 100% now on OxyMask. General appearance: Awake, alert, oriented x3. In no acute distress on the OxyMask. HEENT: No pallor, no jaundice. No JVD. No lymphadenopathy. No thyroid enlargement. Heart: Regular rhythm. Distant heart sounds. Murmur is not appreciated. Lungs: Equal breath sounds bilaterally. Decreased breath sound at bases. No wheezing. No rhonchi. Abdomen: Soft, nontender, nondistended. Obese. Extremities: Positive for chronic skin changes. Lymphedema appearance. Positive for tenderness and redness on the left lower extremity. LABORATORY: Sodium 133, potassium 4.5, chloride 96, bicarbonate 20, BUN 44, creatinine 4.12. Glucose 123. Uric acid 11.3. Calcium 8.6. Total CK 86, WBC 10.2, hemoglobin 9.6, INR 0.99. UA: Specific gravity 1.030, protein 300, pH 5.1, 11-50 WBC, packed RBC. Oxalic acid crystal noted. Urine protein 539. Urine creatinine 290. Urine sodium 44. Chest x-ray showed no acute cardiopulmonary disease process. ASSESSMENT: 1. Acute kidney injury on chronic kidney disease. The patient has had a history of chronic hematuria and subnephrotic range proteinuria for a number of years. He was seen by a cnc technician in the past. Last visit was about two years ago. According to the record, they thought that he might have IgA nephropathy. However, the patient never had a kidney biopsy performed given his body habitus. He was put on lisinopril for a number of years. His baseline serum creatinines have ranged between 0.9-1.2. During this hospitalization, his serum creatinine has jumped quickly to 4.12 today. Of note, he had hypotension noted at the initial evaluation. He has had history of poor oral intake over the past couple of days. He denies using any NSAIDs recently. Of note, he does have history of recurrent strep infection of the lower extremity. Differential diagnosis of acute kidney injury superimposed chronic glomerulonephritis including prerenal azotemia, acute tubular necrosis, acute interstitial nephritis, RPGN secondary to post strep glomerulonephritis or IgA nephropathy. At this point, I would like to redo all the serologies including anti- GBM antibody, immunoglobulin, RPR, [id number] DNA, complement 3, complement 4, ANCA, CONSTANZA, HIV, hepatitis B, C, and urine eosinophils. I had a chance to look at his urine microscopically myself. Numerous dysmorphic RBCs were detected. For now will continue supportive treatment. Will give patient normal saline 60 cc/hour preventing fluid overload. Will discontinue lisinopril. All of the medication needs to be adjusted according to estimated GFR. Ideally we should proceed with a kidney biopsy. However, this is a very difficult case to do so. 2. Recurrent left lower extremity skin and soft tissue infections. 3. Morbid obesity with a BMI of 87. 4. Hypertension. 5. Hypoventilation syndrome/sleep apnea. Thank you for allowing me to participate in the care of your patient. We will monitor along with you. PAULETTE
--- NOTE | 2017-02-13 18:40 | PCM.PNMED ---
Subjective Date of Service Feb 13, 2017 Subjective overnight: Patient continued on BiPAP overnight no acute events otherwise noted Today: Patient today was initially oliguric with development of very dark urine. Nephrology was consulted after FENA results. 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 Sepsis and Cellulitis seems to be responding well to antibiotics. Exam Vital Signs Vital Sign - Last Date Time Temp Pulse Resp B/P Pulse Ox O2 Delivery O2 Flow Rate FiO2 02/13/17 05:28 73 21 99 40 02/13/17 04:09 36.4 111/64 BiPAP 02/12/17 17:25 7.00 Intake and Output 02/12/17 02/12/17 02/13/17 Cumulative From/Thru 15:00 23:00 07:00 02/12/17 14:32 - 02/13/17 06:24 Intake Total 250 ml 300 ml 550 ml Output Total 250 ml 250 ml Balance 250 ml 50 ml 300 ml Intake Oral 250 ml 300 ml 550 ml IV Total 0 ml 0 ml Output Urine Total 250 ml 250 ml # Voids 0 1 1 # Bowel Movements 0 0 0 Exam General: morbidly obese, Alert, Oriented X3, Cooperative, mildly somnolent during interview, No acute Distress Eyes: PERRLA, Scleral Anicteric Mouth: Mouth Normal, Mucous Membranes Moist/[place] Neck: Supple, no Thyromegaly, trachea central. Chest & Lungs: Clear to auscultation & percussion, No adventitious breath sounds, no crackles, no wheeze Cardiovascular: distant heart sounds but Normal S1, Normal S2, No Murmurs/Rubs/ Gallops, Regular Rate/Rhythm Abdomen: Soft, Non-tender, Non-distended, Normoactive bowel tones. Musculoskeletal: Unremarkable. Normal range of motion, no swollen or erythematous joints Extremities: Bilateral lower extremities----Evidence of chronic venous stasis changes , thickening of skin, very dry skin. Bilateral severe lymphedema right worse than left. Both lower extremities tender to palpation Skin: Chronic skin changes with induration and roughening around lower extremities, left lower extremity with improved redness and weeping with multiple areas of skin breakdown no purulent discharge noted, right lower extremity with cutoff sign around ankle consistent with lymphedema, numerous upper body tattoos Neurological: Grossly neurologically intact, has generalized weakness, Normal Speech, Sensation Intact Lymphatic: Lymph nodes Cervical and Axillary not palpable. Groin: no sign of skin breakdown below pannus, no redness, significant diaphoresis in the folds, no malodorous notes of infection, no davidson in place Lab and Diagnostics Result Diagram: 02/13/17 0423 02/12/17 1500 Microbiology Records indicate no previous bacteremia X-Rays, CTs and MRIs PROCEDURE: X-RAY CHEST ONE VIEW, PORTABLE ([id number]) IMPRESSION: No acute cardiopulmonary disease process. Dictated by: Ary Trejo MD, PhD on 02/12/2017 at 15:30 Approved by: Ary Trejo MD, PhD on 02/12/2017 at 15:31 Additional Diagnostics DateTimeAnalyzed 18:50:00 -_ pH ____7.119 - 7.350 7.450 pCO2 ___85.3__ -mmHg 35.0 45.0 pO2 ___82.1__ -mmHg 69.0 116 HCO3- ___26.5__ -mmol/L 22.0 26.0 DateTimeAnalyzed 00:52:00 -_ pH ____7.220 - 7.350 7.450 pCO2 ___63.4__ -mmHg 35.0 45.0 pO2 ___45.5__ -mmHg 69.0 116 HCO3- ___25.0__ -mmol/L 22.0 26.0 Assessment & Plan Du Flannery is a 41 year old male Recurrent leg cellulitis and sepsis, severe bilateral lymphedema, hypertension, rheumatoid arthritis, chronic pain, obstructive sleep apnea who presents to [facility] emergency department with increased redness on left leg. Hospital day 2 1. Severe sepsis, present on admission, improved - SIRS criteria met with Pulse of 111, respiratory rate of 33, white cell count of 21,500 at admission with lactic acid of 2.4 - Likely secondary to acute on chronic cellulitis of left lower extremity - Normal saline at 125 mL per hour - Trend lactate - Review of records indicate no prior bacteremia noted besides skin contaminant - Blood cultures ordered pending - Treat underlying infection described below - ABG ordered shows acidosis with significant CO2 retention likely a acute on chronic change 2. Acute on chronic cellulitis of left lower extremity, present on admission, treated and improving - poor circulation and Lymphedema are contributing factors to recurrent infections. Patient has not ever had a DVT with repeated imaging. -Pt discharged from [facility] on 01/23/2017 for cellulitis, discharged on cefdinir which was taken for 10 day course -Pt has been taking Amoxicillin daily since being seen by infectious disease on February 04 -Significant leukocytosis on admission. Afebrile and hemodynamically stable. -Lactic acid normal at 2.4, trending this value -IVF NS 125mls/hr -Blood cultures pending -ASO pending -MRSA screen pending -Procalcitonin greater than 8 and admission -ID( Dr Eddy) Consult given history of recurrent infections - Ceftriaxone started in emergency department switched to ceftaroline consistent with prior hospitalization, again no record of MRSA 3. Acute kidney injury on chronic kidney disease, present on admission, under evaluation - Patient developed oliguria and very dark urine today nephrology consulted immediately - Chronic kidney disease likely stage II, with baseline creatinine approximately 1.1-1.3 - Creatinine of 2.93 admission increasing today to greater than 4 - IVF NS 125mls/hr - FENA calculated today 0.5% consistent with prerenal azotemia and dehydration - Nephrology review of records indicate a chronic hematuria consistent with possible IgA nephropathy - Microscopic UA shows dysmorphic packed red blood cells possibly consistent with RPGN - Patient complement levels to be checked, 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 Hypertension, chronic - Monitor and hold home medication until more normotensive - We will continue Lisinopril 10 mg bid when helped improve 5. Depression, chronic - continue Sertraline 100 mg daily 6 severe morbid Obesity - continue pulse oximetry - Pt to does not use CPAP at home - patient approved for bariatric surgery at with appointment scheduled for February 17 7. Chronic pain syndrome - continuing Gabapentin 600 mg bid and Oxycodone PRN 8 Obstructive Sleep Apnea, chronic - RT instructed to provide BiPAP overnight - Acetaminophen as needed for mild pain/fever/headache - Bowel regimen as needed - Antiemetic as needed Disposition: Patient likely to be inpatient for several more days as his kidney pathology evolves. GI Prophylaxis: H2 sendy VTE Prophylaxis: Sub-Q Heparin (Unfractionated) VTE Mechanical Devices: Intermittant Pneumatic CD (right leg only) Resuscitation Status: CPR: Attempt Resuscitation Attending Statement Hyponatremia, not present on admission. Ongoing. - In the setting of acute on chronic renal failure - Continue to monitor closely with Nephrology The patient was seen and examined together with Dr. Devi on 02/13/2017 and I agree with the history, exam and plan as outlined in the note above. . Charlie Devi DO Feb 13, 2017 07:32 Rod Grimaldo MD Feb 15, 2017 08:49
[2017-02-14] VITALS (13 sets, daily range): BP systolic 124–152; BP diastolic 64–76; PULSE 76–91; RESP 17–26; O2SAT 93–99
[2017-02-14] MEDS: Sodium Chloride LOK Flush 10 mL Syringe IVFLUSH SCH ×3 (00:23→16:27)
[2017-02-14] MEDS: Heparin 5,000 Unit/mL Inj SUBQ SCH ×3 (00:23→16:46)
[2017-02-14 05:24] LABS: BASOPHILS % (AUTO) 0.1 % (0-3); EOSINOPHILS % (AUTO) 1.7 % (0-5); MONOCYTES % (AUTO) 15.1 % (4-12); Mean Corpuscular Hemoglobin 25.2 pg (27.0-35.0); Mean Corpuscular Volume 85.3 fL (81-100); NEUTROPHILS % (AUTO) 63.9 % (40-74); Platelet Count 226 bil/L (150-400)
--- NOTE | 2017-02-14 06:02 | NUR ---
Pain/Resp Pt reports 6/10 back/leg pain, Oxycodone given x1, effective. Pt wore BIPap during night and 4L O2 per NC while awake with sats in low to mid 90's. Pt A&O but thought process appears a little delayed. Pt refused Buspar and LYrica at HS.
[2017-02-14 07:10] LABS: Vitamin D, 25-Hydroxy 11.6 ng/mL (30.0-100.0)
[2017-02-14] MEDS: BusPIRone 15 mg Dividose Tablet PO SCH (07:55)
[2017-02-14] MEDS: Ceftaroline Inj 600 MG in Dextrose 5% 250 ML IV SCH (08:14)
[2017-02-14] MEDS: 0.9% Sodium Chloride 1,000 ML IV SCH ×3 (08:28→16:28)
--- NOTE | 2017-02-14 12:00 | NUR ---
Mentation Pt stated he felt really sleepy this am and didn't not want much to eat for breakfast. Pt asked to be placed back on his bipap while he sleeps. Sats keeping between 96-98%. Will continue to monitor.
--- NOTE | 2017-02-14 12:26 | PCM.PNNEPH ---
Subjective Date of Service Feb 14, 2017 Subjective His blood pressure has been stable throughout the night. He is currently on CPAP. His urine is more clear today. He has less pain on the left lower extremity. Serum creatinine today of 4.5. He has normal complement 3 and 4. Exam Vital Signs Vital Sign - Last Date Time Temp Pulse Resp B/P Pulse Ox O2 Delivery O2 Flow Rate FiO2 02/14/17 10:59 85 02/14/17 09:33 97 02/14/17 08:53 36.7 17 131/67 Nasal Cannula 5.00 02/14/17 00:30 35 Intake and Output 02/13/17 02/13/17 02/14/17 Cumulative From/Thru 15:00 23:00 07:00 02/12/17 14:32 - 02/14/17 06:43 Intake Total 3221 ml 1275 ml 5046 ml Output Total 400 ml 625 ml 1275 ml Balance 2821 ml 650 ml 3771 ml Intake Oral 1436 ml 400 ml 2386 ml IV Total 1785 ml 875 ml 2660 ml Output Urine Total 400 ml 625 ml 1275 ml # Voids 2 3 # Bowel Movements 1 1 Exam General appearance: Awake, alert, oriented x3. In no acute distress, CPAP. HEENT: No pallor, no jaundice. No JVD. No lymphadenopathy. No thyroid enlargement. Heart: Regular rhythm. Distant heart sounds. Murmur is not appreciated. Lungs: Equal breath sounds bilaterally. Decreased breath sound at bases. No wheezing. No rhonchi. Abdomen: Soft, nontender, nondistended. Obese. Extremities: Positive for chronic skin changes. Lymphedema appearance. Positive for tenderness and redness on the left lower extremity. Lab and Diagnostics Result Diagram: 02/14/1742402/14/17424 Microbiology Records indicate no previous bacteremia X-Rays, CTs and MRIs PROCEDURE: X-RAY CHEST ONE VIEW, PORTABLE ([id number]) IMPRESSION: No acute cardiopulmonary disease process. Dictated by: Ary Trejo MD, PhD on 02/12/2017 at 15:30 Approved by: Ary Trejo MD, PhD on 02/12/2017 at 15:31 Additional Diagnostics DateTimeAnalyzed 18:50:00 -_ pH ____7.119 - 7.350 7.450 pCO2 ___85.3__ -mmHg 35.0 45.0 pO2 ___82.1__ -mmHg 69.0 116 HCO3- ___26.5__ -mmol/L 22.0 26.0 DateTimeAnalyzed 00:52:00 -_ pH ____7.220 - 7.350 7.450 pCO2 ___63.4__ -mmHg 35.0 45.0 pO2 ___45.5__ -mmHg 69.0 116 HCO3- ___25.0__ -mmol/L 22.0 26.0 Plan Impression 1. Acute kidney injury on chronic kidney disease. - Patient with underlying disease of chronic glomerulonephritis, presumably IgA nephropathy. - He came in hypotensive. Currently being treated for left lower extremity cellulitis. - He has normal complement level. I doubt post infectious glomerulonephritis. - I think acute kidney injury is related to ATN from ongoing infection and episode of hypotension. - We will continue supportive treatment for now. Continue normal saline 60 mL per hour. - No urgent dialysis is indicated at this moment. - We will repeat his potassium level in pm. 2. Recurrent left lower extremity skin and soft tissue infections. 3. Vitamin D deficiency. 4. Pseudohyponatremia. Serum osmolality 306. 5. Hyperkalemia. 6. Morbid obesity with a BMI of 87. 7. Hypertension. 8. Hypoventilation syndrome/sleep apnea. Damián Cabrera MD Feb 14, 2017 12:26
[2017-02-14] MEDS ORDERED: Ergocalciferol (Vit D2) 50,000 Unit Capsule PO SCH (12:30)
--- NOTE | 2017-02-14 16:09 | PCM.PNMED ---
Subjective Date of Service Feb 14, 2017 Subjective Overnight: No acute events overnight Today: Patient states that his leg pain has significantly improved since admission, including the redness and swelling. The patient states that his urine color has cleared significantly since his admission. The family asked for clarification on the patient's renal status which was relayed. Exam Vital Signs Vital Sign - Last Date Time Temp Pulse Resp B/P Pulse Ox O2 Delivery O2 Flow Rate FiO2 02/14/17 05:48 91 02/14/17 04:33 96 02/14/17 04:15 36.6 26 124/76 BiPAP 02/14/17 00:30 35 02/13/17 19:49 5.00 Intake and Output 02/13/17 02/13/17 02/14/17 Cumulative From/Thru 15:00 23:00 07:00 02/12/17 14:32 - 02/14/17 06:43 Intake Total 3221 ml 1275 ml 5046 ml Output Total 400 ml 625 ml 1275 ml Balance 2821 ml 650 ml 3771 ml Intake Oral 1436 ml 400 ml 2386 ml IV Total 1785 ml 875 ml 2660 ml Output Urine Total 400 ml 625 ml 1275 ml # Voids 2 3 # Bowel Movements 1 1 Exam General: morbidly obese, Alert, Oriented X3, Cooperative, mildly somnolent during interview, No acute Distress Eyes: PERRLA, Scleral Anicteric Mouth: Mouth Normal, Mucous Membranes Moist/[place] Neck: Supple, no Thyromegaly, trachea central. Chest & Lungs: Clear to auscultation & percussion, No adventitious breath sounds, no crackles, no wheeze Cardiovascular: distant heart sounds but Normal S1, Normal S2, No Murmurs/Rubs/ Gallops, Regular Rate/Rhythm Abdomen: Soft, Non-tender, Non-distended, Normoactive bowel tones. Musculoskeletal: Unremarkable. Normal range of motion, no swollen or erythematous joints Extremities: Bilateral lower extremities----Evidence of chronic venous stasis changes , thickening of skin, very dry skin. Bilateral severe lymphedema right worse than left. Both lower extremities tender to palpation Skin: Chronic skin changes with induration and roughening around lower extremities, left lower extremity with improved redness and weeping with multiple areas of skin breakdown no purulent discharge noted, right lower extremity with cutoff sign around ankle consistent with lymphedema, numerous upper body tattoos Neurological: Grossly neurologically intact, has generalized weakness, Normal Speech, Sensation Intact Lymphatic: Lymph nodes Cervical and Axillary not palpable. Groin: no sign of skin breakdown below pannus, no redness, significant diaphoresis in the folds, no malodorous notes of infection, no davidson in place Lab and Diagnostics Result Diagram: 02/14/1742402/14/17424 Microbiology Records indicate no previous bacteremia X-Rays, CTs and MRIs PROCEDURE: X-RAY CHEST ONE VIEW, PORTABLE ([id number]) IMPRESSION: No acute cardiopulmonary disease process. Dictated by: Ary Trejo MD, PhD on 02/12/2017 at 15:30 Approved by: Ary Trejo MD, PhD on 02/12/2017 at 15:31 Additional Diagnostics DateTimeAnalyzed 18:50:00 -_ pH ____7.119 - 7.350 7.450 pCO2 ___85.3__ -mmHg 35.0 45.0 pO2 ___82.1__ -mmHg 69.0 116 HCO3- ___26.5__ -mmol/L 22.0 26.0 DateTimeAnalyzed 00:52:00 -_ pH ____7.220 - 7.350 7.450 pCO2 ___63.4__ -mmHg 35.0 45.0 pO2 ___45.5__ -mmHg 69.0 116 HCO3- ___25.0__ -mmol/L 22.0 26.0 Assessment & Plan Du Flannery is a 41 year old male Recurrent leg cellulitis and sepsis, severe bilateral lymphedema, hypertension, rheumatoid arthritis, chronic pain, obstructive sleep apnea who presents to [facility] emergency department with increased redness on left leg. Hospital day 3 1. Acute on chronic cellulitis of left lower extremity, present on admission, treated and improving - poor circulation and Lymphedema are contributing factors to recurrent infections. Patient has not ever had a DVT with repeated imaging. -Pt discharged from [facility] on 01/23/2017 for cellulitis, discharged on cefdinir which was taken for 10 day course -Pt has been taking Amoxicillin daily since being seen by infectious disease on February 04 -Significant leukocytosis on admission. Afebrile and hemodynamically stable. -Lactic acid normal at 2.4, trending this value -IVF NS 125mls/hr -Blood cultures pending -ASO pending -MRSA screen pending -Procalcitonin greater than 8 and admission -ID( Dr Eddy) Consult given history of recurrent infections - Ceftriaxone started in emergency department switched to ceftaroline consistent with prior hospitalization, again no record of MRSA - Given poor renal clearance pharmacy has rescheduled ceftaroline to 200 mg twice a day 02/14 2. Acute kidney injury on chronic kidney disease, present on admission, under evaluation - Patient developed oliguria and very dark urine today nephrology consulted immediately - Chronic kidney disease likely stage II, with baseline creatinine approximately 1.1-1.3 - Creatinine of 2.93 admission increasing today to greater than 4 - IVF NS 125mls/hr - FENA calculated today 0.5% consistent with prerenal azotemia and dehydration - Nephrology review of records indicate a chronic hematuria consistent with possible IgA nephropathy - Microscopic UA shows dysmorphic packed red blood cells possibly consistent with RPGN - Patient complement levels checked were normal which is inconsistent with post streptococcal glomerulonephritis - IgA and IgG serum levels are both elevated this is not diagnostic of IgA nephropathy but increases probability - Also possible is ATN given infection in hypotensive at admission 3. Hypertension, present on admission chronic - Monitor and oriented generally held home medication lisinopril until more hypertensive with improved kidney function - Lisinopril medication started back on evening of admission 02/12 when systolic blood pressure increased to 180, - nephrology is recommended that this medication be discontinued until renal pathology is more clearly delineated - Consider alternatives such as hydralazine or beta blockers such as metoprolol temporarily during this hospitalization 4. Depression, present on admission chronic - continue Sertraline 100 mg daily 5 severe morbid Obesity, present on admission, chronic - continue pulse oximetry - Pt to does not use CPAP at home - patient approved for bariatric surgery at with appointment scheduled for February 17 6. Chronic pain syndrome, present on admission - Oxycodone PRN 7 hypoventilation syndrome/Obstructive Sleep Apnea, present on admission, chronic - RT instructed to provide BiPAP overnight 8 Hyperkalemia, not present on admission, acute - Kayexalate given 02/14/2017 9 Vitamin D deficiency, present on admission, chronic - Secondary hyperparathyroidism is consistent with low vitamin D levels - Consider vitamin D supplementation as an outpatient 10. Severe sepsis, present on admission, resolved - SIRS criteria met with Pulse of 111, respiratory rate of 33, white cell count of 21,500 at admission with lactic acid of 2.4 - Likely secondary to acute on chronic cellulitis of left lower extremity - Normal saline at 125 mL per hour - Review of records indicate no prior bacteremia noted besides skin contaminant - Blood cultures ordered pending - Treat underlying infection described below - ABG ordered shows acidosis with significant CO2 retention likely a acute on chronic change - Acetaminophen as needed for mild pain/fever/headache - Bowel regimen as needed - Antiemetic as needed Disposition: Patient likely to be inpatient for several more days as his kidney pathology evolves. GI Prophylaxis: H2 sendy VTE Prophylaxis: Sub-Q Heparin (Unfractionated) VTE Mechanical Devices: Intermittant Pneumatic CD Resuscitation Status: CPR: Attempt Resuscitation Attending Statement The patient was seen and examined together with Dr. Devi on 02/14/2017 and I agree with the history, exam and plan as outlined in the note above. . Charlie Devi DO Feb 14, 2017 07:49 Rod Grimaldo MD Feb 15, 2017 08:56
[2017-02-14] MEDS: DEXTROSE 5% IV SCH (20:40)
[2017-02-14] MEDS: CEFTAROLINE IV SCH (20:40)
--- NOTE | 2017-02-14 23:34 | NUR ---
: pt. having burning, urinary frequency, hospitalist paged. UA sent w/ culture, pt. on iv abx and normal saline, urine was pink tinged.
[2017-02-14 23:47] LABS: APPEARANCE,URINE CLEAR (CLEAR,HAZY); COLOR,URINE RED (YELLOW); OCCULT BLOOD,URINE LARGE (NEGATIVE); PH,URINE 5.5 (5.0-8.0); UROBILINOGEN,URINE NORMAL (NORMAL)
[2017-02-15] VITALS (11 sets, daily range): BP systolic 133–169; BP diastolic 69–84; PULSE 71–89; RESP 17–26; O2SAT 91–98
[2017-02-15] MEDS: 0.9% Sodium Chloride 1,000 ML IV SCH ×2 (00:10→12:40)
[2017-02-15] MEDS: Sodium Chloride LOK Flush 10 mL Syringe IVFLUSH SCH ×3 (00:30→16:30)
[2017-02-15] MEDS: Heparin 5,000 Unit/mL Inj SUBQ SCH ×4 (01:17→23:12)
[2017-02-15 04:45] LABS: BASOPHILS % (AUTO) 0.3 % (0-3); EOSINOPHILS % (AUTO) 1.9 % (0-5); MONOCYTES % (AUTO) 10.9 % (4-12); Mean Corpuscular Volume 83.3 fL (81-100); NEUTROPHILS % (AUTO) 73.6 % (40-74); Platelet Count 231 bil/L (150-400)
[2017-02-15] MEDS: CEFTAROLINE IV SCH ×2 (08:06→20:25)
[2017-02-15] MEDS: DEXTROSE 5% IV SCH ×2 (08:06→20:25)
--- NOTE | 2017-02-15 14:16 | PCM.PNNEPH ---
Subjective Date of Service Feb 15, 2017 Subjective He stated that he is feeling better. Blood pressure is on the high side. He has less pain on the left lower extremity. Serum creatinine is trending. Exam Vital Signs Vital Sign - Last Date Time Temp Pulse Resp B/P Pulse Ox O2 Delivery O2 Flow Rate FiO2 02/15/17 12:56 36.6 76 20 151/82 96 Nasal Cannula 2.00 02/15/17 04:00 35 Intake and Output 02/14/17 02/14/17 02/15/17 Cumulative From/Thru 15:00 23:00 07:00 02/12/17 14:32 - 02/15/17 05:43 Intake Total 2134 ml 1578 ml 8758 ml Output Total 1850 ml 2500 ml 5625 ml Balance 284 ml -922 ml 3133 ml Intake Oral 1200 ml 400 ml 3986 ml IV Total 934 ml 1178 ml 4772 ml Output Urine Total 1850 ml 2500 ml 5625 ml # Voids 3 # Bowel Movements 0 1 Exam General appearance: Awake, alert, oriented x3. In no acute distress, on NC. HEENT: No pallor, no jaundice. No JVD. No lymphadenopathy. No thyroid enlargement. Heart: Regular rhythm. Distant heart sounds. Murmur is not appreciated. Lungs: Equal breath sounds bilaterally. Decreased breath sound at bases. No wheezing. No rhonchi. Abdomen: Soft, nontender, nondistended. Obese. Extremities: Positive for chronic skin changes. Lymphedema appearance. Positive for tenderness and redness on the left lower extremity. Lab and Diagnostics Result Diagram: 02/15/1741102/15/17411 Microbiology Records indicate no previous bacteremia X-Rays, CTs and MRIs PROCEDURE: X-RAY CHEST ONE VIEW, PORTABLE ([id number]) IMPRESSION: No acute cardiopulmonary disease process. Dictated by: Ary Trejo MD, PhD on 02/12/2017 at 15:30 Approved by: Ary Trejo MD, PhD on 02/12/2017 at 15:31 Additional Diagnostics DateTimeAnalyzed 18:50:00 -_ pH ____7.119 - 7.350 7.450 pCO2 ___85.3__ -mmHg 35.0 45.0 pO2 ___82.1__ -mmHg 69.0 116 HCO3- ___26.5__ -mmol/L 22.0 26.0 DateTimeAnalyzed 00:52:00 -_ pH ____7.220 - 7.350 7.450 pCO2 ___63.4__ -mmHg 35.0 45.0 pO2 ___45.5__ -mmHg 69.0 116 HCO3- ___25.0__ -mmol/L 22.0 26.0 Plan Impression 1. Acute kidney injury on chronic kidney disease. - Patient with underlying disease of chronic glomerulonephritis, presumably IgA nephropathy. - He came in hypotensive. Currently being treated for left lower extremity cellulitis. - He has normal complement level. I doubt post infectious glomerulonephritis. - I think acute kidney injury is related to ATN from ongoing infection and episode of hypotension. - Serum creatinine is trending. - We will continue supportive treatment for now. We will discontinue IV fluid. - No urgent dialysis is indicated at this moment. 2. Recurrent left lower extremity skin and soft tissue infections. 3. Vitamin D deficiency. 4. Hyperkalemia, improving. 5. Morbid obesity with a BMI of 87. 6. Hypertension. 7. Hypoventilation syndrome/sleep apnea. Plan: Continue to hold lisinopril. Discontinue IV fluid. Disposition: Within 24-48 hrs. Follow-up with renal in one week. We will resume either MYA inhibitor or ARB once acute kidney injury subsided. Damián Cabrera MD Feb 15, 2017 14:16
--- NOTE | 2017-02-15 15:31 | NUR ---
Social Work Note: Readiness for Discharge Data& Assessment: Per MD in morning rounds, pt is getting closer to being medically ready for discharge. SW met with pt and pt at bedside to confirm discharge plan and assess for any unmet needs. Pt has a weigh loss surgery appointment on Thursday02/17/2017 and is hoping to be discharged in time to make it to the appointment. Pt is currently a 1PA in his room per manager documentation, however pt states he is close to his baseline ambulation. Pt uses an electric scooter at baseline. Pt did state that he is feeling weaker than his baseline. SW discussed Home health services with pt for PT as well as RN for vitals and medication management. Pt and pt was interested but is unsure if he will require this service at time of discharge or not. Pt and pt will see how pt is doing tomorrow functionally and let SW know if they change their mind. Pt is currently requiring oxygen and pt states he does not normally wear oxygen at home. SW to follow for final RT evaluation and recommendations. Pt to transport home when medically ready. Pt and pt deny any other needs at this time. SW to continue to follow if any needs arise. Plan: Anticipated discharge home via POV when medically ready. Pt and pt deny any other needs at this time. SW to continue to follow if any needs arise. SAÚL Turner
--- NOTE | 2017-02-15 15:35 | NUR ---
MEETA Signed SAÚL Turner
--- NOTE | 2017-02-15 16:52 | PCM.PNMED ---
Subjective Date of Service Feb 15, 2017 Subjective Patient is feeling well. He is having some nausea this morning but no vomiting , abdominal pain or diarrhea. Yesterday he had dizziness with standing but has not been up much yet today to evaluate this. His urine is appearing clearer to him. Overnight, nursing reported pink-tinged urine and urinary frequency. Urine sent for additional UA. Exam Vital Signs Vital Sign - Last Date Time Temp Pulse Resp B/P Pulse Ox O2 Delivery O2 Flow Rate FiO2 02/15/17 08:58 Supplement Oxygen CPAP/BIPAP 02/15/17 08:58 36.6 74 17 143/76 95 3.00 02/15/17 04:00 35 Intake and Output 02/14/17 02/14/17 02/15/17 Cumulative From/Thru 15:00 23:00 07:00 02/12/17 14:32 - 02/15/17 05:43 Intake Total 2134 ml 1578 ml 8758 ml Output Total 1850 ml 2500 ml 5625 ml Balance 284 ml -922 ml 3133 ml Intake Oral 1200 ml 400 ml 3986 ml IV Total 934 ml 1178 ml 4772 ml Output Urine Total 1850 ml 2500 ml 5625 ml # Voids 3 # Bowel Movements 0 1 Exam General: morbidly obese, Alert, Oriented X3, Cooperative, No acute Distress Eyes: PERRLA, Scleral Anicteric Mouth: Mouth Normal, Mucous Membranes Moist/[place], no oral thrush appreciated Neck: Supple, no Thyromegaly, trachea central. Chest & Lungs: Clear to auscultation & percussion, No adventitious breath sounds, no crackles, no wheeze Cardiovascular: distant heart sounds but Normal S1, Normal S2, No Murmurs/Rubs/ Gallops, Regular Rate/Rhythm Abdomen: Soft, Non-tender, Non-distended, Normoactive bowel tones. Musculoskeletal: Unremarkable. Normal range of motion, no swollen or erythematous joints Extremities: Bilateral lower extremities----Evidence of chronic venous stasis changes , thickening of skin, very dry skin. Bilateral severe lymphedema right worse than left. Both lower extremities tender to palpation Skin: Chronic skin changes with induration and roughening around lower extremities, left lower extremity with improved redness and weeping with multiple areas of skin breakdown no purulent discharge noted, right lower extremity with cutoff sign around ankle consistent with lymphedema, numerous upper body tattoos Neurological: Grossly neurologically intact, Normal Speech, moving all extremities grossly IVs and Medications Medications Reviewed: Medications were reviewed in detail Lab and Diagnostics Result Diagram: 02/15/1741102/15/17411 X-Rays, CTs and MRIs PROCEDURE: X-RAY CHEST ONE VIEW, PORTABLE IMPRESSION: No acute cardiopulmonary disease process. Dictated by: Ary Trejo MD, PhD on 02/12/2017 at 15:30 Assessment & Plan Patient is a 41 year old male Recurrent leg cellulitis and sepsis, severe bilateral lymphedema, hypertension, rheumatoid arthritis, chronic pain, obstructive sleep apnea who presents to [facility] emergency department with increased redness on left leg. Hospital day 4 1. Acute on chronic cellulitis of left lower extremity, present on admission, treated and improving - Poor circulation and Lymphedema are contributing factors to recurrent infections. - Dr. Eddy consulted given history of recurrent infections and his familiarity with the patient. - Continue ceftaroline to 200 mg twice a day (dose adjustment 02/14/17; day 4 of treatment). 2. Acute kidney injury on chronic kidney disease, present on admission, improving. - Chronic kidney disease likely stage II, with baseline creatinine approximately 1.1-1.3. - Increase presumed to be secondary to poor PO intake and fluid depletion related to his cellulitis. - Nephrology review of records indicate a chronic hematuria consistent with possible IgA nephropathy. IgA and IgG serum levels are both elevated this is not diagnostic of IgA nephropathy but increases probability. 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 - Patient has received IV hydration and is improving. Encourage PO intake. 3. Hypertension, chronic, presume stable. - Lisinopril discontinued due to SYDNEY and uncertain renal pathology. - Consider alternatives such as hydralazine or beta blockers such as metoprolol temporarily during this hospitalization. 4. Depression, chronic, presume stable. - Continue Sertraline 100 mg daily. 5. Severe morbid Obesity, chronic. - Patient approved for bariatric surgery at with appointment scheduled for February 17. 6. Chronic pain syndrome,presume stable. - Oxycodone PRN 7. Hypoventilation syndrome/Obstructive Sleep Apnea, chronic, uncontrolled. - RT instructed to provide BiPAP overnight - Pt does not use CPAP at home. Recommend sleep medicine follow up to adjust CPAP settings and encourage use again. 8. Hyperkalemia, not present on admission, improved. - Kayexalate given 02/14/2017. - Continue to monitor with BMP. 9. Vitamin D deficiency, chronic, presume stable. - Secondary hyperparathyroidism is consistent with low vitamin D levels - Consider vitamin D supplementation as an outpatient 10. Severe sepsis, present on admission, resolved. - SIRS criteria met with Pulse of 111, respiratory rate of 33, white cell count of 21,500 at admission with lactic acid of 2.4 - Likely secondary to acute on chronic cellulitis of left lower extremity - Normal saline at 125 mL per hour - Review of records indicate no prior bacteremia noted besides skin contaminant - Blood cultures ordered pending - Treat underlying infection described below - ABG ordered shows acidosis with significant CO2 retention likely a acute on chronic change - Acetaminophen as needed for mild pain/fever/headache - Bowel regimen as needed - Antiemetic as needed Disposition: Plan for probable discharge tomorrow, 02/16/17 and thorough discharge planning involving Dr. Eddy and nephrology service. Would like patient to be able to make bariatric surgery appointment on 02/17/17. Pain Evaluation: Adequate Pain Control GI Prophylaxis: H2 sendy VTE Prophylaxis: Sub-Q Heparin (Unfractionated) VTE Mechanical Devices: Intermittant Pneumatic CD Resuscitation Status: CPR: Attempt Resuscitation Attending Statement The patient was seen and examined together with Dr. Hester on 02/15/2017 and I agree with the history, exam and plan as outlined in the note above. . Rubi Hester DO Feb 15, 2017 11:18 Rod Grimaldo MD Feb 15, 2017 17:57
--- NOTE | 2017-02-15 17:56 | NUR ---
Ambulation Pt up ambulating in room multiple times today and sat over on the couch for a while this afternoon to help relieve back pain. No c/o SOB or discomfort. Vitals remained stable. Slight sleepiness noted.
[2017-02-16 00:06] VITALS: RESP 25; O2SAT 95
[2017-02-16] MEDS: Sodium Chloride LOK Flush 10 mL Syringe IVFLUSH SCH ×2 (00:41→07:43)
[2017-02-16] MEDS: 0.9% Sodium Chloride 1,000 ML IV SCH (01:10)
[2017-02-16 04:07] VITALS: BP 163/92; PULSE 73; RESP 20; O2SAT 98
[2017-02-16 04:23] LABS: BASOPHILS % (AUTO) 0.2 % (0-3); EOSINOPHILS % (AUTO) 2.1 % (0-5); MONOCYTES % (AUTO) 10.7 % (4-12); Mean Corpuscular Hemoglobin 25.8 pg (27.0-35.0); Mean Corpuscular Volume 83.9 fL (81-100); NEUTROPHILS % (AUTO) 69.2 % (40-74); Platelet Count 257 bil/L (150-400)
[2017-02-16 05:24] LABS: Magnesium 2.3 mg/dL (1.6-2.6); Phosphorus 4.7 mg/dL (2.5-4.9)
[2017-02-16 07:34] VITALS: BP 143/80; PULSE 70; RESP 18; O2SAT 97
[2017-02-16] MEDS: CEFTAROLINE IV SCH (07:42)
[2017-02-16] MEDS: DEXTROSE 5% IV SCH (07:42)
[2017-02-16] MEDS: Heparin 5,000 Unit/mL Inj SUBQ SCH (07:43)
[2017-02-16 09:03] VITALS: PULSE 72
[2017-02-16] MEDS ORDERED: cefTRIAXone Inj 2,000 MG in Dextrose 5% Minibag Plus 50 ML IV ONE (10:30)
--- NOTE | 2017-02-16 11:04 | PCM.PNNEPH ---
Subjective Date of Service Feb 16, 2017 Subjective The patient was seen and examined today and his shortness been thoroughly reviewed. Strongly suspect that his chronic kidney disease is more related to obesity-induced focal segmental sclerosis rather than IgA nephropathy. A serum test for IgG is not diagnostic for IgA nephropathy and in light of his super morbid obesity. Alert F history of diagnosis is considerably more likely. He states that he is feeling better and has had some improvement in his renal function. The last 24 hours his intake and output 30 6:21 AM and 5150 out with 2650 in the first 8 hours of today. Blood pressure remains between 30 and 160. This morning his sodium is 142, potassium 4.8, chloride 108, bicarbonate of 20 , BUN and creatinine were 39 and 2.5 respectively. Exam Vital Signs Vital Sign - Last Date Time Temp Pulse Resp B/P Pulse Ox O2 Delivery O2 Flow Rate FiO2 02/16/17 09:03 72 02/16/17 07:48 Supplement Oxygen CPAP/BIPAP 02/16/17 07:34 36.4 18 143/80 97 2.00 02/16/17 00:06 35 Intake and Output 02/15/17 02/15/17 02/16/17 Cumulative From/Thru 15:00 23:00 07:00 02/12/17 14:32 - 02/16/17 06:38 Intake Total 2043 ml 600 ml 99502 ml Output Total 2650 ml 2650 ml 38977 ml Balance -607 ml -2050 ml 476 ml Intake Oral 1000 ml 600 ml 5586 ml IV Total 1043 ml 5815 ml Output Urine Total 2650 ml 2650 ml 78780 ml # Voids 8 11 # Bowel Movements 0 1 Exam Patient is massively obese but alert and oriented. His neck exam was somewhat difficult owing to large size and I did not appreciate any cervical adenopathy or jugular venous distention. His lungs sounds were quite distant as his heart sounds. Abdomen is pendulous and was grossly normal. Extremities shows marked lymphedema with chronic plaque changes in the right leg greater than the left leg. There was some mild superimposed pitting edema. Lab and Diagnostics Result Diagram: 02/16/17 03402/16/17 034 Microbiology Records indicate no previous bacteremia X-Rays, CTs and MRIs PROCEDURE: X-RAY CHEST ONE VIEW, PORTABLE IMPRESSION: No acute cardiopulmonary disease process. Dictated by: Ary Trejo MD, PhD on 02/12/2017 at 15:30 Additional Diagnostics DateTimeAnalyzed 18:50:00 -_ pH ____7.119 - 7.350 7.450 pCO2 ___85.3__ -mmHg 35.0 45.0 pO2 ___82.1__ -mmHg 69.0 116 HCO3- ___26.5__ -mmol/L 22.0 26.0 DateTimeAnalyzed 00:52:00 -_ pH ____7.220 - 7.350 7.450 pCO2 ___63.4__ -mmHg 35.0 45.0 pO2 ___45.5__ -mmHg 69.0 116 HCO3- ___25.0__ -mmol/L 22.0 26.0 Plan Impression Impression #1 acute tubular necrosis secondary to hypotension and medications # 2 obesity related focal segmental sclerosis #3 hypertension with hypertensive heart disease and hypertensive nephrosclerosis number for lymphedema #5 metabolic syndrome #6 obstructive sleep apnea The patient has an appointment at [facility] tomorrow to see the surgeons about a gastric bypass for obesity. From my point of view he can be discharged however I would like to have him follow up with either Dr. mcgeeor myself in the next week or 2 to better evaluate his renal function and his blood pressure. At this time I would like to hold the lisinopril for several days but restart this at 10 mg at bedtime in about 5 days. In the meantime and also to start him on chlorthalidone 25 mg once a day. Michael Walton DO Feb 16, 2017 11:04
[2017-02-16] MEDS ORDERED: AMOX500T2 PO (11:12)
[2017-02-16] MEDS ORDERED: SACC250C PO (11:12)
--- NOTE | 2017-02-16 11:37 | NUR ---
Room air ambulation pt on room air, sating 97% prior to ambulation. pt ambulated across room and back to couch, o2 saturation decreased to about 91%. pt denied soboe, however noted increase respiratory effort. encouraged purse lip breathing. pt steady on feet.
--- NOTE | 2017-02-16 12:14 | NUR ---
Social Work Note: Discharge Data& Assessment: EMR reviewed. Per pt is medically ready to discharge home via POV. SW met with pt and pt at bedside to confirm discharge plan and assess for any unmet needs. Du Flannery Jr is a 41 year old male admitted on 02/12/2017 for LLE Cellulitis. Per pt is medically improved. Pt does not require 02 going home and is ambulating at baseline. Pt and pt denies any other needs. No other discharge needs identified. All updated and agreeable to plan. Plan: Per pt is medically ready to discharge home via POV. Pt and pt denies any other needs. No other discharge needs identified. All updated and agreeable to plan. SAÚL Turner
--- NOTE | 2017-02-16 12:33 | PROG NOTE ---
[address] [address] PROGRESS NOTE PATIENT: PO DELGADO : 1975 MR#: [id number] ADMIT: 02/12/2017 JOB ID: [id number] DATE: 02/16/2017 REASON FOR FOLLOWUP: Severe left lower extremity recurrent cellulitis and acute renal failure in a patient with super morbid obesity. INTERVAL HISTORY: Over the weekend, the patient has noticed dramatic improvement in his left lower extremity. The warmth, tenderness, and swelling have all improved considerably and he no longer has any fevers, chills, or constitutional symptoms. He denies any respiratory complaint, no GI complaint, and notes that his urine output is quite good without dysuria. PHYSICAL EXAMINATION: Reveals a massively obese gentleman with a BMI of 85. His temperature is 36.4, pulse 72, respiratory rate 18, blood pressure 143/88. He is saturating reasonably well on 2 L. Ins appears very comfortable sitting up today. His lungs are clear but obviously very distant cardiac tones. Extremely distant but regular. Abdomen super morbidly obese with large pannus that appears uninfected his left lower extremity cellulitis is much improved. It is not warm it is not red and it is not tender this all constitutes a big improvement over three days ago. LABORATORIES: Include a white count which started off at 21,000 is now 6100 his platelet count 257,000 his creatinine that peaked at 4.56 on the was all the way down to 2.5 showing tremendous improvement and presumably almost normal GFR. His procalcitonin. It peaked at two eight when he came in, 8.2, is now down to 0.94. LFTs normal. Serum IgG was done I am not sure why but it was very high actually February 10[birth year] 1984. RPR negative. Hepatitis B surface antigen negative. HIV negative. Streptozyme elevated as it always is. A PCR of the nose negative blood cultures. Negative urine negative. IMAGING: Includes a chest x-ray done on the which showed no infiltrate. IMPRESSION: This patient has had a gratifying improvement in his overall situation, as we were very worried about his respiratory status, as well as his kidneys and his left lower extremity infection last week. Renal has been involved in this case, and they believe that he has acute tubular necrosis and may have focal segmental sclerosis secondary to obesity. He also, of course, has significant hypertension and sleep apnea. At this point, his infection is much improved. I think he can be transitioned to oral therapy, as he has an all important appointment with the bariatric surgery team tomorrow at the [facility]. RECOMMENDATIONS: 1. The patient should receive a dose of ceftriaxone just before discharge to carry him through the next 24 hours. 2. As soon as his discharge, he can start amoxicillin 1 g p.o. t.i.d., and this should be continued for at least 10 days. 3. I will see the patient in my clinic on February 18, and I have discussed this with the patient. Note that ID will be signing off now, as he will be leaving.
[2017-02-16] MEDS ORDERED: HYG25 PO (13:01)
[2017-02-16 13:07] LABS: RNP Antibodies <0.2 AI (0.0-0.9)
--- NOTE | 2017-02-16 13:15 | PCM.DIMED ---
Charlie Devi DO 02/16/17 1114: Discharge Instructions Date of Service Feb 16, 2017 Dates of Hospitalization Feb 12, 2017 at 16:47 Discharge Diagnosis Discharge Diagnosis 1. Acute on chronic cellulitis of left lower extremity 2. Acute kidney injury on chronic kidney disease 3. Hypertension 4. Depression 5. Obesity with BMI>85 6. Chronic pain syndrome 7. Hypoventilation syndrome/Obstructive Sleep Apnea 8. Hyperkalemia 9. Vitamin D deficiency 10. Severe sepsis Medication Instructions Please take all your regular home medications as directed except for your Lisinopril. Please wait for 5 days and start your Lisinopril on February 21, 2017. Our nephrologists would also like you to start a new blood pressure medication Chlorthalidone 25mg taken every morning. This medication will cause you to urinate more during the day, so please take it in the morning. Please take the antibiotics Amoxicillin 1g every three times daily or 8 hours as directed. You have been given 10 days worth of this prescription so it is very important that you keep your appointment with your infectious disease specialist. Please take a probiotic while you are on this antibiotic. Probiotic pills are over the counter but a prescription was filled out You should also start supplementing an over the counter Vitamin D capsule. Please take Vitamin D with food as it helps with the absorption. Diet Low fat, Low Sodium, Heart Healthy Activity No restrictions Call your provider Fever or Chills, Shortness of breath, Bleeding, Chest pain, Vomitting, Excessive diarrhea, Other (worsening dark urine) Patient Instructions Please follow up with your healthcare provider's listed below. Please keep your appointment with your bariatric surgeon at the [facility]. Please drink plenty of fluids, get plenty of rest and exercise. Your fluid intake should be with water and NOT with liquids that are caffeinated or carbonated like soda pop. Please avoid sugary beverages as these are simply empty calories which your body will store as fat. You should focus on loosing weight in a healthy and consistent manner. Please ask your primary care physician about getting an outpatient nutrition fireworks assembly supervisor consult. You should also ask your PCP about a new sleep study. Follow-up plan Please follow up with your infectious disease doctor Michael Eddy M.D. on February 18, 2017. Please follow up with your regular primary care provider Supa Alegria D.O. within the next week. Please follow up with a [employer] estimator and drafter supervisor Dr. Deborah Hercules or Dr. Anton Lane within the next week. We should have an appointment scheduled prior to your discharge. Follow-up Provider: Supa Alegria DO Follow-up with PCP in: 1 week Provider: Michael Eddy MD Follow-up in: Other (2 days on ThursdayFebruary 18) Mid-level Provider (F9): Damián Cabrera MD Follow-up with Mid-level in: 1 week Rod Grimaldo MD 02/18/17 1048: Discharge Instructions Attending's Statement The patient was seen and examined together with Dr. Devi on 02/16/2017 and I agree with the history, exam and plan as outlined in the note above. . Charlie Devi DO Feb 16, 2017 11:14 Rod Grimaldo MD Feb 18, 2017 10:48
--- NOTE | 2017-02-16 15:33 | NUR ---
Discharge pt ordered for discharge home with family. pt aware and agreeable. discharge instructions and medications reviewed with patient and . prescriptions given to patient. pt rode personal electric scooter with all belongings to psychiatric hospital unit at about 1345.
--- NOTE | 2017-02-16 19:59 | PCM.DC.MED ---
Discharge Summary Date of Service Feb 16, 2017 Dates of Hospitalization Date of Hospital Admission Feb 12, 2017 at 16:47 Date of Discharge: Feb 16, 2017 Providers: Admitting Physician: Supa Swift MD Primary Care Physician: Michael Corey DO Attending Physician: Supa Swift MD Diagnosis at Time of Discharge Diagnosis at Time of Discharge 1. Acute on chronic cellulitis of left lower extremity 2. Acute kidney injury on chronic kidney disease 3. Hypertension 4. Depression 5. Obesity with BMI>85 6. Chronic pain syndrome 7. Hypoventilation syndrome/Obstructive Sleep Apnea 8. Hyperkalemia 9. Vitamin D deficiency 10. Severe sepsis Consultations Infectious disease Nephrology Procedures XRay, CTs & MRIs PROCEDURE: X-RAY CHEST ONE VIEW, PORTABLE IMPRESSION: No acute cardiopulmonary disease process. Dictated by: Ary Trejo MD, PhD on 02/12/2017 at 15:30 Other Diagnostics DateTimeAnalyzed 18:50:00 -_ pH ____7.119 - 7.350 7.450 pCO2 ___85.3__ -mmHg 35.0 45.0 pO2 ___82.1__ -mmHg 69.0 116 HCO3- ___26.5__ -mmol/L 22.0 26.0 DateTimeAnalyzed 00:52:00 -_ pH ____7.220 - 7.350 7.450 pCO2 ___63.4__ -mmHg 35.0 45.0 pO2 ___45.5__ -mmHg 69.0 116 HCO3- ___25.0__ -mmol/L 22.0 26.0 Brief History 41-year-old male with chronic lower extremity lymphedema and severe morbid obesity presents with acute on chronic left leg cellulitis followed by infectious diseases an outpatient. The patient was last seen by infectious disease on February 04 and has been on amoxicillin prophylactically for cellulitis of the left lower extremity. Patient states that over the last several days he has noticed increased redness, swelling, pain of the left lower extremity. The pain was as high as his groin which is not unusual for this patient. The patient denies any ongoing fever or chills, sore throat, runny nose, cough, shortness of breath, chest pain, nausea, vomiting, diarrhea or constipation. The patient has an appointment with bariatric surgery at [facility] on February 17. Hospital Course Patient is a 41 year old male Recurrent leg cellulitis and sepsis, severe bilateral lymphedema, hypertension, rheumatoid arthritis, chronic pain, obstructive sleep apnea who presents to [facility] emergency department with increased redness on left leg. Hospital day 5 1. Acute on chronic cellulitis of left lower extremity, present on admission, treated and improving - Poor circulation and Lymphedema are contributing factors to recurrent infections. - Dr. Eddy consulted given history of recurrent infections and his familiarity with the patient. - Continue ceftaroline to 200 mg twice a day wall inpatient - Patient received ceftriaxone IV prior to discharge on day of discharge - Infectious disease recommends amoxicillin 1 g every 8 hours as an outpatient and will be followed up by Dr. Eddy at his clinic on February 18 2. Acute kidney injury on chronic kidney disease, present on admission, improving. - Chronic kidney disease likely stage II, with baseline creatinine approximately 1.1-1.3. - Increase presumed to be secondary to poor PO intake and fluid depletion related to his cellulitis. - Nephrology review of records indicate a chronic hematuria consistent with possible IgA nephropathy. IgA and IgG serum levels are both elevated but this is not diagnostic of IgA nephropathy. 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 - Patient has received IV hydration and is improving. Encourage PO intake. - Encourage weight loss including bariatric surgery options as an outpatient 3. Hypertension, chronic, presume stable. - Lisinopril discontinued due to SYDNEY and uncertain renal pathology. - Considered alternatives such as hydralazine or beta blockers such as metoprolol temporarily during this hospitalization given the KI - Patient to be restarted on lisinopril 5 days after discharge starting February 21 - Nephrology recommends starting chlorthalidone 25 mg daily starting at discharge 4. Depression, chronic, presume stable. - Continue Sertraline 100 mg daily. 5. Severe morbid Obesity, chronic. - Patient approved for bariatric surgery at with appointment scheduled for February 17. 6. Chronic pain syndrome,presume stable. - Oxycodone PRN 7. Hypoventilation syndrome/Obstructive Sleep Apnea, chronic, uncontrolled. - RT instructed to provide BiPAP overnight - Pt does not use CPAP at home. Recommend sleep medicine follow up to adjust CPAP settings and encourage use again. 8. Hyperkalemia, not present on admission, improved. - Kayexalate given 02/14/2017. 9. Vitamin D deficiency, chronic, presume stable. - Secondary hyperparathyroidism is consistent with low vitamin D levels - Encourage vitamin D supplementation as an outpatient 10. Severe sepsis, present on admission, resolved. - SIRS criteria met with Pulse of 111, respiratory rate of 33, white cell count of 21,500 at admission with lactic acid of 2.4 - Likely secondary to acute on chronic cellulitis of left lower extremity - Normal saline at 125 mL per hour - Review of records indicate no prior bacteremia noted besides skin contaminant - Blood cultures ordered pending - Treat underlying infection described below - ABG ordered shows acidosis with significant CO2 retention likely a acute on chronic change Exam Vital Signs (Last) Date Time Temp Pulse Resp B/P Pulse Ox O2 Delivery O2 Flow Rate FiO2 02/16/17 09:03 72 02/16/17 07:48 Supplement Oxygen CPAP/BIPAP 02/16/17 07:34 36.4 18 143/80 97 2.00 02/16/17 00:06 35 Exam General: morbidly obese, Alert, Oriented X3, Cooperative, No acute Distress Eyes: PERRLA, Scleral Anicteric Mouth: Mouth Normal, Mucous Membranes Moist/[place], no oral thrush appreciated Neck: Supple, no Thyromegaly, trachea central. Chest & Lungs: Clear to auscultation & percussion, No adventitious breath sounds, no crackles, no wheeze Cardiovascular: distant heart sounds but Normal S1, Normal S2, No Murmurs/Rubs/ Gallops, Regular Rate/Rhythm Abdomen: Soft, Non-tender, Non-distended, Normoactive bowel tones. Musculoskeletal: Unremarkable. Normal range of motion, no swollen or erythematous joints Extremities: Bilateral lower extremities----Evidence of chronic venous stasis changes , thickening of skin, very dry skin. Bilateral severe lymphedema right worse than left. Both lower extremities tender to palpation Skin: Chronic skin changes with induration and roughening around lower extremities, left lower extremity with improved redness and weeping with multiple areas of skin breakdown no purulent discharge noted, right lower extremity with cutoff sign around ankle consistent with lymphedema, numerous upper body tattoos Neurological: Grossly neurologically intact, Normal Speech, moving all extremities grossly Test 02/12/17 15:00 02/12/17 21:15 02/13/17 08:30 02/13/17 13:15 Hemoglobin A1c 6.6% (4.8-5.6) Troponin T < 0.010ug/L (0.0-0.011) Lactic Acid Level 1.1mmol/L (0.4-2.0) Streptozyme 492.4IU/mL (0.0-200.0) Urinalysis Comment Transitional epi Urine Random Creatinine 290mg/dL (22-328) Urine Random Total Protein 539mg/dL (0-15) Urine Random Sodium 44mEq/L Total Creatine Kinase 86U/L (21-232) Prothrombin Time 10.6sec (8.1-12.5) Prothromb Time International Ratio 0.99ratio Activated Partial Thromboplast Time 25.6sec (22.8-33.0) Uric Acid 11.3mg/dL (2.6-7.2) Parathyroid Hormone (Intact) 175pg/mL (15-65) Anti-Nuclear Antibody Screen Positive (Negative) Anti-Nuclear Antibody Comment Comment (.) SS-A/Ro Antibody <0.2AI (0.0-0.9) SS-B/La Antibody <0.2AI (0.0-0.9) Sm ([place]) IgG Antibody, Quant 1.1AI (0.0-0.9) COMMERCIAL LEASING AGENT Antibody <0.2AI (0.0-0.9) Hepatitis B Surface Antigen Negative (Negative) Hepatitis B Core Total Antibody Negative (Negative) HIV (1&2) Ag and Ab, 4th Generation Non reactive (Non Reactive) Test 02/13/17 14:50 02/13/17 16:09 02/14/17 04:25 02/14/17 08:55 Anti-Double Strand DNA Antibody 1IU/mL (0-9) Anti-Glomerular Basement Memb Ab 5units (0-20) Complement C3 143mg/dL (82-167) Complement C4 23mg/dL (14-44) Rapid Plasma Reagin Non reactive (Non Reactive) Serum Immunoglobulin A 537mg/dL (90-386) Serum Immunoglobulin G 2384mg/dL (700-1600) Vitamin D 25-Hydroxy 11.6ng/mL (30.0-100.0) Immunoglobulin M 78mg/dL (20-172) Pro-B-Type Natriuretic Peptide 1906pg/mL (0-86) Osmolality 306 (275-300) Test 02/14/17 23:27 02/16/17 03:40 Urine Color Red (YELLOW) Urine Appearance Clear (CLEAR,HAZY) Urine pH 5.5 (5.0-8.0) Urine Specific Pool 1.005 (1.003-1.035) Urine Protein 30mg/dL (NEG,TRACE) Urine Glucose (UA) Negativemg/dL (NEGATIVE) Urine Ketones Negativemg/dL (NEGATIVE) Urine Occult Blood Large (NEGATIVE) Urine Nitrite Negative (NEGATIVE) Urine Bilirubin Negative (NEGATIVE) Urine Urobilinogen Normalmg/dL (NORMAL) Urine Leukocyte Esterase Trace (NEGATIVE) Urine RBC >50/hpf (0-2) Urine WBC 6-10/hpf (0-5) Urine Epithelial Cells Occasional/hpf (NONE-MOD) Urine Crystals None seen (NONE SEEN) Urine Bacteria None/hpf (NONE-FEW) Urine Hyaline Casts None/lpf (NONE) Urine Granular Casts None seen (NONE SEEN) Urine Waxy Casts None seen (NONE SEEN) Urine Red Blood Cell Casts None seen (NONE SEEN) Urine White Blood Cell Casts None seen (NONE SEEN) Urine Mucus None seen (None Seen) Urine Trichomonas None seen (NONE SEEN) Urine Yeast None (NONE SEEN) Urine Culture Reflexed Indicated White Blood Count 6.1th/mm3 (3.8-10.1) Red Blood Count 4.03mil/mm3 (4.40-5.80) Hemoglobin 10.4g/dL (13.8-17.2) Hematocrit 33.8% (41.0-50.0) Mean Corpuscular Volume 83.9fL (81-100) Mean Corpuscular Hemoglobin 25.8pg (27.0-35.0) Mean Corpuscular Hemoglobin Concent 30.8% (32.0-37.0) Red Cell Distribution Width 14.8% (12.3-15.4) Platelet Count 257bil/L (150-400) Neutrophils (%) (Auto) 69.2% (40-74) Lymphocytes (%) (Auto) 17.5% (14-46) Monocytes (%) (Auto) 10.7% (4-12) Eosinophils (%) (Auto) 2.1% (0-5) Basophils (%) (Auto) 0.2% (0-3) Sodium Level 142mEq/L (134-144) Potassium Level 4.8mEq/L (3.5-5.2) Chloride Level 108mEq/L (97-108) Carbon Dioxide Level 20mmol/L (18-29) Blood Urea Nitrogen 39mg/dL (6-24) Creatinine 2.53mg/dL (0.76-1.27) Estimat Glomerular Filtration Rate 30mL/min (>59) Glucose Level 107mg/dL (60-99) Calcium Level 9.1mg/dL (8.5-10.1) Phosphorus Level 4.7mg/dL (2.5-4.9) Magnesium Level 2.3mg/dL (1.6-2.6) Total Bilirubin 0.2mg/dL (0.0-1.2) Aspartate Amino Transf (AST/SGOT) 14U/L (0-50) Alanine Aminotransferase (ALT/SGPT) 18U/L (0-44) Alkaline Phosphatase 59U/L (25-150) Total Protein 8.1g/dL (6.4-8.4) Albumin 2.9g/dL (3.4-5.0) Procalcitonin 0.94ng/mL (0.00-0.08) Microbiology Results Records indicate no previous bacteremia Discharge Medications Discharge Medications Amoxicillin (Amoxicillin) 500 Mg Tablet 1,000 MG PO TID Prescribed by: DAHIANA ESTES DO Chlorthalidone (Chlorthalidone) 25 Mg Tablet 25 MG PO DAILY Prescribed by: DAHIANA ESTES DO Lisinopril (Lisinopril) 10 Mg Tablet 10 MG PO BID Prescribed by: AMY GUPTA MD Saccharomyces Boulardii (Florastor) 250 Mg Capsule 250 MG PO DAILY Prescribed by: DAHIANA ESTES DO Sertraline HCl (Sertraline) 100 Mg Tablet 150 MG PO DAILY (Reported) As needed Acetaminophen (Acetaminophen) 325 Mg Tablet 325-650 MG PO Q4H PRN PRN For Fever (Reported) Calcium Polycarbophil (Fiber-Caps) 625 Mg Tablet 625 MG PO DIRECTED PRN PRN For Constipation (Reported) Loperamide (Loperamide) 2 Mg Capsule 2 MG PO Q4H PRN PRN For Diarrhea or Loose Stool (Reported) oxyCODONE (oxyCODONE) 10 Mg Tablet 10 MG PO Q8H PRN PRN For Pain (Reported) Additional med instructions Please take all your regular home medications as directed except for your Lisinopril. Please wait for 5 days and start your Lisinopril on February 21, 2017. Our nephrologists would also like you to start a new blood pressure medication Chlorthalidone 25mg taken every morning. This medication will cause you to urinate more during the day, so please take it in the morning. Please take the antibiotics Amoxicillin 1g every three times daily or 8 hours as directed. You have been given 10 days worth of this prescription so it is very important that you keep your appointment with your infectious disease specialist. Please take a probiotic while you are on this antibiotic. Probiotic pills are over the counter but a prescription was filled out You should also start supplementing an over the counter Vitamin D capsule. Please take Vitamin D with food as it helps with the absorption. Followup Plan Disposition: Home Follow-up plan Please follow up with your infectious disease doctor Michael Eddy M.D. on February 18, 2017. Please follow up with your regular primary care provider Supa Alegria D.O. within the next week. Please follow up with a [employer] professor of counseling Dr. Deborah Hercules or Dr. Anton Lane within the next week. We should have an appointment scheduled prior to your discharge. Discharge Diet: Low fat, Low Sodium, Heart Healthy Discharge Activity: No restrictions Patient Instructions Please follow up with your healthcare provider's listed below. Please keep your appointment with your bariatric surgeon at the [facility]. Please drink plenty of fluids, get plenty of rest and exercise. Your fluid intake should be with water and NOT with liquids that are caffeinated or carbonated like soda pop. Please avoid sugary beverages as these are simply empty calories which your body will store as fat. You should focus on loosing weight in a healthy and consistent manner. Please ask your primary care physician about getting an outpatient nutrition sociology faculty member consult. You should also ask your PCP about a new sleep study. Follow-up Provider: Supa Alegria DO Follow-up with PCP in: 1 week Provider: Michael Eddy MD Follow-up in: Other (2 days on ThursdayFebruary 18) Mid-level Provider: Damián Cabrera MD Follow-up with Mid-level in: 1 week Time spent Greater than 30 minutes was spent in preparation of discharge with greater than 50% of that time dedicated to patient counseling and coordination of care. . Attending Statement The patient was seen and examined together with Dr. Estes on 02/16/2017 and I agree with the history, exam and plan as outlined in the note above. . copies to: Supa Alegria Nicholas K DO Feb 16, 2017 19:58 Rod Grimaldo MD Feb 18, 2017 10:48
--- NOTE | 2017-02-16 20:02 | PCM.PNMED ---
Subjective Date of Service Feb 16, 2017 Subjective overnight: No acute events Today: Patient states that he feels good and ready to go home he understands that the plan will be to follow up with infectious disease in 2 days. The patient will also follow-up with nephrology and his primary care physician in one week to evaluate his kidney function. The patient understands his home antibiotics regimen and his right knee discharge. Exam Vital Signs Vital Sign - Last Date Time Temp Pulse Resp B/P Pulse Ox O2 Delivery O2 Flow Rate FiO2 02/16/17 07:34 36.4 70 18 143/80 97 Nasal Cannula 2.00 02/16/17 00:06 35 Intake and Output 02/15/17 02/15/17 02/16/17 Cumulative From/Thru 15:00 23:00 07:00 02/12/17 14:32 - 02/16/17 06:38 Intake Total 2043 ml 600 ml 61130 ml Output Total 2650 ml 2650 ml 93629 ml Balance -607 ml -2050 ml 476 ml Intake Oral 1000 ml 600 ml 5586 ml IV Total 1043 ml 5815 ml Output Urine Total 2650 ml 2650 ml 38033 ml # Voids 8 11 # Bowel Movements 0 1 Exam General: morbidly obese, Alert, Oriented X3, Cooperative, No acute Distress Eyes: PERRLA, Scleral Anicteric Mouth: Mouth Normal, Mucous Membranes Moist/[place], no oral thrush appreciated Neck: Supple, no Thyromegaly, trachea central. Chest & Lungs: Clear to auscultation & percussion, No adventitious breath sounds, no crackles, no wheeze Cardiovascular: distant heart sounds but Normal S1, Normal S2, No Murmurs/Rubs/ Gallops, Regular Rate/Rhythm Abdomen: Soft, Non-tender, Non-distended, Normoactive bowel tones. Musculoskeletal: Unremarkable. Normal range of motion, no swollen or erythematous joints Extremities: Bilateral lower extremities----Evidence of chronic venous stasis changes , thickening of skin, very dry skin. Bilateral severe lymphedema right worse than left. Both lower extremities tender to palpation Skin: Chronic skin changes with induration and roughening around lower extremities, left lower extremity with improved redness and weeping with multiple areas of skin breakdown no purulent discharge noted, right lower extremity with cutoff sign around ankle consistent with lymphedema, numerous upper body tattoos Neurological: Grossly neurologically intact, Normal Speech, moving all extremities grossly Lab and Diagnostics Result Diagram: 02/16/17 0340 02/16/17 0340 Microbiology Records indicate no previous bacteremia X-Rays, CTs and MRIs PROCEDURE: X-RAY CHEST ONE VIEW, PORTABLE IMPRESSION: No acute cardiopulmonary disease process. Dictated by: Ary Trejo MD, PhD on 02/12/2017 at 15:30 Additional Diagnostics DateTimeAnalyzed 18:50:00 -_ pH ____7.119 - 7.350 7.450 pCO2 ___85.3__ -mmHg 35.0 45.0 pO2 ___82.1__ -mmHg 69.0 116 HCO3- ___26.5__ -mmol/L 22.0 26.0 DateTimeAnalyzed 00:52:00 -_ pH ____7.220 - 7.350 7.450 pCO2 ___63.4__ -mmHg 35.0 45.0 pO2 ___45.5__ -mmHg 69.0 116 HCO3- ___25.0__ -mmol/L 22.0 26.0 Assessment & Plan Patient is a 41 year old male Recurrent leg cellulitis and sepsis, severe bilateral lymphedema, hypertension, rheumatoid arthritis, chronic pain, obstructive sleep apnea who presents to [facility] emergency department with increased redness on left leg. Hospital day 5 1. Acute on chronic cellulitis of left lower extremity, present on admission, treated and improving - Poor circulation and Lymphedema are contributing factors to recurrent infections. - Dr. Eddy consulted given history of recurrent infections and his familiarity with the patient. - Continue ceftaroline to 200 mg twice a day (dose adjustment 02/14/17; day 4 of treatment). 2. Acute kidney injury on chronic kidney disease, present on admission, improving. - Chronic kidney disease likely stage II, with baseline creatinine approximately 1.1-1.3. - Increase presumed to be secondary to poor PO intake and fluid depletion related to his cellulitis. - Nephrology review of records indicate a chronic hematuria consistent with possible IgA nephropathy. IgA and IgG serum levels are both elevated this is not diagnostic of IgA nephropathy but increases probability. 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 - Patient has received IV hydration and is improving. Encourage PO intake. 3. Hypertension, chronic, presume stable. - Lisinopril discontinued due to SYDNEY and uncertain renal pathology. - Considered alternatives such as hydralazine or beta blockers such as metoprolol temporarily during this hospitalization. - Patient will be started on chlorthalidone daily as an outpatient - Patient educated to hold lisinopril for 5 more days until February 21 at which point he can restart his regular home lisinopril dosing 4. Depression, chronic, presume stable. - Continue Sertraline 100 mg daily. 5. Severe morbid Obesity, chronic. - Patient approved for bariatric surgery at with appointment scheduled for February 17. 6. Chronic pain syndrome,presume stable. - Oxycodone PRN 7. Hypoventilation syndrome/Obstructive Sleep Apnea, chronic, uncontrolled. - RT instructed to provide BiPAP overnight - Pt does not use CPAP at home. Recommend sleep medicine follow up to adjust CPAP settings and encourage use again. 8. Hyperkalemia, not present on admission, improved. - Kayexalate given 02/14/2017. 9. Vitamin D deficiency, chronic, presume stable. - Secondary hyperparathyroidism is consistent with low vitamin D levels - Incurred vitamin D supplementation as an outpatient 10. Severe sepsis, present on admission, resolved. - SIRS criteria met with Pulse of 111, respiratory rate of 33, white cell count of 21,500 at admission with lactic acid of 2.4 - Likely secondary to acute on chronic cellulitis of left lower extremity - Normal saline at 125 mL per hour - Review of records indicate no prior bacteremia noted besides skin contaminant - Blood cultures ordered pending - Treat underlying infection described below - ABG ordered shows acidosis with significant CO2 retention likely a acute on chronic change Disposition: Patient to be discharged today will follow up with Dr. Eddy and Dr. Hernanedz as well as his PCP Dr. Alegria after discharge. GI Prophylaxis: H2 sendy VTE Prophylaxis: Sub-Q Heparin (Unfractionated) VTE Mechanical Devices: Intermittant Pneumatic CD Resuscitation Status: CPR: Attempt Resuscitation Attending Statement The patient was seen and examined together with Dr. Devi on 02/16/2017 and I agree with the history, exam and plan as outlined in the note above. . Charlie Devi DO Feb 16, 2017 07:49 Rod Grimaldo MD Feb 18, 2017 10:49
[2017-02-17 11:08] LABS: Antiproteinase 3 (PR-3) Abs <3.5 U/mL (0.0-3.5); Perinuclear (P-ANCA) <1:20 titer (Neg:<1:20)
== END 2017-02-16 13:45 | disposition home or self-care (01) | DRG 871 ==
LOC: SED 14:23 → OSC 16:47 → PCC 18:26
PROVIDERS: ADMIT Internal Medicine; ATTEND Internal Medicine
PROC: 4A033B1 Measurement of Arterial Pressure, Peripheral, Percutaneous Approach (ICD-10-PCS; principal; 2017-02-12)
PROC: 5A09457 Assistance with Respiratory Ventilation, 24-96 Consecutive Hours, Continuous Positive Airway Pressure (ICD-10-PCS; 2017-02-12)
DX: A41.9 Sepsis, unspecified organism (principal); G93.40 Encephalopathy, unspecified; N17.0 Acute kidney failure with tubular necrosis; L03.116 Cellulitis of left lower limb; Z68.45 Body mass index [BMI] 70 or greater, adult; E66.2 Morbid (severe) obesity with alveolar hypoventilation; E87.1 Hypo-osmolality and hyponatremia; J30.2 Other seasonal allergic rhinitis; I87.2 Venous insufficiency (chronic) (peripheral); F41.8 Other specified anxiety disorders; M79.7 Fibromyalgia; E11.8 Type 2 diabetes mellitus with unspecified complications; M06.9 Rheumatoid arthritis, unspecified; I12.9 Hypertensive chronic kidney disease with stage 1 through stage 4 chronic kidney disease, or unspecified chronic kidney disease; N18.2 Chronic kidney disease, stage 2 (mild); G89.4 Chronic pain syndrome; R65.20 Severe sepsis without septic shock; E87.5 Hyperkalemia; E55.9 Vitamin D deficiency, unspecified; R31.9 Hematuria, unspecified; E86.0 Dehydration

== ENCOUNTER 2017-04-13 16:53 | Emergency (ER) | payer MEDICARE ==
[~2017-04-13] VITALS: Ht 180.3 cm; Wt 255.9 kg
[~2017-04-13 16:53] MED LIST changes: +AMOX500T2 PO; +CALC625T83 PO; -CEFD300C3 PO; -GABA600T2 PO; +HYG25 PO; +OXYC10TA8 PO; -OXYC5TAB72 PO; +SACC250C PO
[2017-04-13 16:56] VITALS: BP 149/74; PULSE 84; RESP 20; O2SAT 96
--- NOTE | 2017-04-13 18:05 | ED.REPORT ---
HPI-Extremity Problem Lower Date of Service April 13, 2017 ED Provider: Doc,Ed MD History of Present Illness: 42-year-old male here for left lower extremity pain and swelling times one day. No fever, no nausea, vomiting or any other complaints. He has had infection in this leg before, and possible sepsis. No recent travel or airplane rides. He is morbidly obese. He states he does walk at home but uses a wheelchair for longer outings. Are some abrasions on his posterior left lower extremity. No purulent drainage. He states his right lower extremity is not more swollen than usual. He denies chest pain, shortness of breath. No history of DVT Nursing Notes Stated Complaint: LEFT LEG PAIN Chief Complaint: Extremity Trauma Nursing Notes Reviewed: Yes Allergies: Coded Allergies: linezolid (Verified Allergy, Intermediate, Hives, rash, itching, 02/12/17) levofloxacin (Verified Allergy, Unknown, 02/12/17) vancomycin (Verified Adverse Reaction, Intermediate, "Kidneys Shut Down", 02/12/17) Scheduled Amoxicillin (Amoxicillin) 500 Mg Tablet 1,000 MG PO TID Cephalexin (Keflex) 500 Mg Capsule 500 MG PO QID Chlorthalidone (Chlorthalidone) 25 Mg Tablet 25 MG PO DAILY Lisinopril (Lisinopril) 10 Mg Tablet 10 MG PO BID Saccharomyces Boulardii (Florastor) 250 Mg Capsule 250 MG PO DAILY Sertraline HCl (Sertraline) 100 Mg Tablet 150 MG PO DAILY Sulfamethoxazole/Trimeth 800-160 mg (Bactrim DS) 1 Each Tablet 2 TABLET PO BID Scheduled PRN Acetaminophen (Acetaminophen) 325 Mg Tablet 325-650 MG PO Q4H PRN PRN For Fever Calcium Polycarbophil (Fiber-Caps) 625 Mg Tablet 625 MG PO DIRECTED PRN PRN For Constipation Loperamide (Loperamide) 2 Mg Capsule 2 MG PO Q4H PRN PRN For Diarrhea or Loose Stool oxyCODONE (oxyCODONE) 10 Mg Tablet 10 MG PO Q8H PRN PRN For Pain General Time Seen by MD: 18:03 Chief Complaint Leg injury left Hx Obtained From: Patient Arrived By: Walk-in Onset Occurred: Yesterday Symptom Duration: Since onset Location: : Leg left Severity: Current: Moderate Severity: Maximum: Moderate Additional Notes: Pain increases with walking Pertinent Negative: Pt denies other symptoms Exacerbated by: Range of motion, Movement Relieved by: Rest Immunizations: All up to date Similar Sx Previous: Yes Risk-Extremity Prob Lower Risk Notes: obese, limited mobility Past Medical History Past Medical History Notes: Patient with multiple admissions for cellulitis Past Medical History 1. Recurrent cellulitis right lower extremity, also hx of abdominal cellulitis 2. Severe lymphedema of right lower extremity greater than left. 3. Severe Morbid obesity with BMI of 80.9 4. Hypertension. 5. Chronic pain with narcotic dependence. 6. Seasonal allergies. 7. Obstructive sleep apnea. CPAP intolerant. 8. Fibromyalgia. 9. Arthritis 10. Depression/Anxiety 11. Venous insufficiency of the lower extremities No hx of MRSA Past Surgical History Hernia repair Reports: Cholecystectomy Family History Family History Diabetes Rheumatoid arthritis Hypertension Cancer No history of TB Smoking History Never Smoker Social History Uses mobility scooter Alcohol Use: Denies alcohol use Drug Use: Denies drug use Other Social History: Ambulatory Status Independent Review of Systems Review of Systems Note: LLE pain/swelling. hx cellulitis LLE. denies numbness/tingling. onset yesterday. Basic Review of Systems Eyes: Vision NL, No discharge Respiratory: No shortness of breath Cardiovascular: No chest pain, No dyspnea on exertion, No orthopnea, No parox noct dyspnea, No palpitations GI: No abdominal pain, No anorexia, No nausea, No vomiting Psychiatric: Normal thought content Constitutional: Denies: Chills, Fatigue, Fever, Lethargy, Malaise, Recent wt loss, Weakness - generalized Musculoskeletal: Reports: Extremity pain, Extremity swelling Complete sys rev & neg: except as marked. Physical Exam Initial Vital Signs Vital Signs (First) Date Time Temp Pulse Resp B/P Pulse Ox O2 Delivery O2 Flow Rate FiO2 04/13/17 16:56 36.2 84 20 149/74 96 Room Air Initial VS: Reviewed, Vital signs normal General/Constitutional: Well-developed, Well-nourished Head / Eyes: Atraumatic, Normocephalic, PERRL ENT: Mucous membranes moist, Conjunctiva normal, No scleral icterus Neck: Supple, Non-tender, Full range of motion Respiratory: Breath sounds normal, Clear to auscultation, No respiratory distress Cardiovascular: Regular rate & rhythm, Heart sounds normal, Intact distal pulses Abdomen / GI: Soft, Non-tender, No guarding, No rebound, No distention Upper Extremities: Vascular intact, Neuro intact, No swelling, No tenderness Neurologic: Alert, Oriented, Nonfocal Psychiatric: Mood/affect normal, Behavior normal, Normal thought content Both lower extremities are grossly edematous right is actually larger and more edematous than his left but he states his R is his baseline. Left calf is edematous and tight with fluid. Some superficial abrasions in the posterior calf, entire area from ankle to knee is tender. No appreciable induration. mildly erythematous. pedal pulse present. not able to obtain cx. Ankle / Foot: Atraumatic, Inspection NL, Full range of motion, No swelling, No erythema, Non-tender, No deformity, Neurologic intact, Vascular intact, No edema Interpretation & Diagnostics Interpretation & Diagnostics: [place] [address] Patient Name: PO DELGADO JR MR#: [id number] [place] [facility] [place] Ordering Phys: Vicky Lou [facility] Date of Service: 04/13/171819 PROCEDURE: US VENOUS LEG DUPLEX BILATERAL INDICATIONS: swelling and pain TECHNIQUE: Real-time imaging, as well as color and pulse Doppler interrogation, were performed of the deep veins of both legs from the inguinal ligament to the popliteal fossa. COMPARISON: None. FINDINGS: No evidence of right lower extremity DVT. Left lower extremity demonstrates no evidence of DVT, but examination is limited secondary to the inability of patient to tolerate compression. IMPRESSION: 1. No evidence of right lower extremity DVT. 2. Limited but negative evaluation of the left lower extremity for DVT. Lab Results Interpretation Result Diagram: 04/13/17 1800 04/13/17 1800 Test 04/13/17 18:00 04/13/17 18:20 White Blood Count 8.1th/mm3 (3.8-10.1) Red Blood Count 4.26mil/mm3 (4.40-5.80) Hemoglobin 11.3g/dL (13.8-17.2) Hematocrit 35.9% (41.0-50.0) Mean Corpuscular Volume 84.3fL (81-100) Mean Corpuscular Hemoglobin 26.5pg (27.0-35.0) Mean Corpuscular Hemoglobin Concent 31.5% (32.0-37.0) Red Cell Distribution Width 15.3% (12.3-15.4) Platelet Count 298bil/L (150-400) Neutrophils (%) (Auto) 65.4% (40-74) Lymphocytes (%) (Auto) 19.9% (14-46) Monocytes (%) (Auto) 12.0% (4-12) Eosinophils (%) (Auto) 2.1% (0-5) Basophils (%) (Auto) 0.2% (0-3) D-Dimer 0.78mg/L FEU (<0.50) Sodium Level 140mEq/L (134-144) Potassium Level 4.4mEq/L (3.5-5.2) Chloride Level 101mEq/L (97-108) Carbon Dioxide Level 26mmol/L (18-29) Blood Urea Nitrogen 22mg/dL (6-24) Creatinine 1.21mg/dL (0.76-1.27) Estimat Glomerular Filtration Rate 70mL/min (>59) Glucose Level 110mg/dL (60-99) Calcium Level 9.5mg/dL (8.5-10.1) Total Bilirubin 0.4mg/dL (0.0-1.2) Aspartate Amino Transf (AST/SGOT) 28U/L (0-50) Alanine Aminotransferase (ALT/SGPT) 23U/L (0-44) Alkaline Phosphatase 71U/L (25-150) Total Protein 8.6g/dL (6.4-8.4) Albumin 3.2g/dL (3.4-5.0) Hold Estrada Top Tube Received (Received) Re-Eval/Medical Decision Med Decision/Clinical Course Discussed care with Dr. Ferreira. Suggest antibiotic regimen. Discharge & Departure Shift Change Sign-Out Laboratory Evaluation: Lab evaluation discussed Procedures: Results discussed Response to Therapy: Improved Impression: Primary Impression: Left leg cellulitis Disposition: Home Discharge Condition All VS Reviewed: Yes Patient Instructions: Cellulitis (ED) Additional Instructions: Take antibiotic as prescribed. Follow-up for recheck in 1-2 days with your PCP. If you cannot get an you may return to the ER for recheck as well. If worsening pain, swelling, redness or you get fevers return to the emergency room immediately. also return if you get purulent drainage coming from your wound. Weightbearing as tolerated. Follow up US of Left lower leg in one week, schedule with your doctor Referrals: Supa Alegria DO (PCP) EDSupervising Provider for APC: Ronal Ferreira DO copies to: Ronal Ferreira DO; Supa Alegria Linnea K ARNP April 13, 2017 18:05 Vicky Lou April 13, 2017 18:05
[2017-04-13 18:15] LABS: BASOPHILS % (AUTO) 0.2 % (0-3); EOSINOPHILS % (AUTO) 2.1 % (0-5); Mean Corpuscular Hemoglobin 26.5 pg (27.0-35.0); Mean Corpuscular Volume 84.3 fL (81-100); NEUTROPHILS % (AUTO) 65.4 % (40-74); Platelet Count 298 bil/L (150-400)
[2017-04-13] MEDS ORDERED: HYDROmorphone 1 mg/mL Inj IVPUSH ONE ×3 (18:20→21:10)
--- NOTE | 2017-04-13 19:30 | DRSVH ---
PROCEDURE: US VENOUS LEG DUPLEX BILATERAL INDICATIONS: swelling and pain TECHNIQUE: Real-time imaging, as well as color and pulse Doppler interrogation, were performed of the deep veins of both legs from the inguinal ligament to the popliteal fossa. COMPARISON: None. FINDINGS: No evidence of right lower extremity DVT. Left lower extremity demonstrates no evidence of DVT, but examination is limited secondary to the inability of patient to tolerate compression. IMPRESSION: 1. No evidence of right lower extremity DVT. 2. Limited but negative evaluation of the left lower extremity for DVT. Dictated by: Itzel Rincon M.D. on 04/13/2017 at 19:28 Approved by: Itzel Rnicon M.D. on 04/13/2017 at 19:29
[2017-04-13] MEDS ORDERED: Trimethoprim-Sulfa 160 mg-800 mg Tablet PO ONE (20:40)
[2017-04-13] MEDS ORDERED: cefTRIAXone Inj 2,000 MG in Dextrose 5% Minibag Plus 50 ML IV SCH (20:40)
[2017-04-13] MEDS ORDERED: SULF1TAB7 PO (20:44)
[2017-04-13] MEDS ORDERED: CEPH-512 PO (20:44)
[2017-04-13 22:11] VITALS: BP 132/70; PULSE 88; RESP 20; O2SAT 93
== END 2017-04-13 22:13 | disposition home or self-care (01) ==
LOC: SED 16:53
DX: L03.116 Cellulitis of left lower limb (principal); I10 Essential (primary) hypertension; Z88.1 Allergy status to other antibiotic agents; Z88.8 Allergy status to other drugs, medicaments and biological substances
CPT/HCPCS: 36415; 80053; 85025; 85378; 93970; 96365; 96375; 96376; 99285; J0696; J1170

== ENCOUNTER 2017-04-15 14:51 | Inpatient (IN) | payer MEDICARE ==
[~2017-04-15] VITALS: Ht 180.3 cm; Wt 282.9 kg
[~2017-04-15 14:51] MED LIST changes: +CEPH-512 PO; +SULF1TAB7 PO
[2017-04-15 14:55] VITALS: BP 151/94; PULSE 91; RESP 18; O2SAT 96
[2017-04-15] MEDS ORDERED: 0.9% Sodium Chloride 1,000 ML IV ONE (15:07)
--- NOTE | 2017-04-15 15:27 | ED.REPORT ---
HPI-Extremity Problem Lower Date of Service April 15, 2017 ED Provider: Olviier Matt MD Du is a 42-year-old male with a history of recurrent lower extremity cellulitis, lymphedema, morbid obesity, hypertension, chronic pain, venous insufficiency of lower extremities presented with chief complaint of lower extremity pain and swelling. Patient states he was seen in this department 2 days ago for similar complaints and discharged with diagnosis of cellulitis. He has an open wound on the posterior of his left leg. Returns today due to worsening lower externally pain, left greater than right as well as left inguinal pain and left lower back pain. He admits to swelling in his lower extremities at baseline but states that today the swelling in his right leg is 30% worse than usual and the swelling in his left leg is 50% worse than usual. Admits to "feeling hot" this morning as well as chills presently. Denies fever , vomiting, abdominal pain, dysuria, hematuria, injury, surgery, long plane rides, chest pain, palpitations, shortness of breath, cough, wheeze. Patient reports that his symptom constellation is familiar to him and he is quite concerned that he is in danger of becoming septic. Nursing Notes Stated Complaint: LEG PAIN, BOTH, BELOW KNEE, BACK PAIN Chief Complaint: Extremity Trauma Nursing Notes Reviewed: Yes Allergies: Coded Allergies: linezolid (Verified Allergy, Intermediate, Hives, rash, itching, 02/12/17) levofloxacin (Verified Allergy, Unknown, 02/12/17) vancomycin (Verified Adverse Reaction, Intermediate, "Kidneys Shut Down", 02/12/17) Scheduled Gabapentin (Gabapentin) 600 Mg Tablet 600 MG PO BID Lisinopril (Lisinopril) 10 Mg Tablet 10 MG PO DAILY Sertraline HCl (Sertraline) 100 Mg Tablet 100 MG PO DAILY Scheduled PRN oxyCODONE (oxyCODONE) 10 Mg Tablet 20 MG PO Q4H PRN PRN For Pain General Time Seen by MD: 15:19 Chief Complaint Other (bilateral leg swelling, pain) Past Medical History Past Medical History Notes: Patient with multiple admissions for cellulitis Past Medical History 1. Recurrent cellulitis right lower extremity, also hx of abdominal cellulitis 2. Severe lymphedema of right lower extremity greater than left. 3. Severe Morbid obesity with BMI of 80.9 4. Hypertension. 5. Chronic pain with narcotic dependence. 6. Seasonal allergies. 7. Obstructive sleep apnea. CPAP intolerant. 8. Fibromyalgia. 9. Arthritis 10. Depression/Anxiety 11. Venous insufficiency of the lower extremities No hx of MRSA Past Surgical History Hernia repair Reports: Cholecystectomy Family History Family History Diabetes Rheumatoid arthritis Hypertension Cancer No history of TB Smoking History Never Smoker Social History Uses mobility scooter Alcohol Use: Denies alcohol use Drug Use: Denies drug use Other Social History: Ambulatory Status Independent Review of Systems General: Admits chills. Respiratory: Denies dyspnea, cough, shortness of breath, wheezing. Cardiovascular: Denies chest pain, palpitations. Gastrointestinal: Denies vomiting, diarrhea, abdominal pain. Genitourinary: Denies frequency, urgency, dysuria, hematuria. Otherwise as noted in HPI. Physical Exam General: Well appearing, well developed, morbidly obese, mild distress. Right lower leg: Extreme, nonpitting edema with firm consistency and tenderness to the knee. No lesions noted. DP pulses 1+, PT pulses not appreciated. Toes cool Left lower leg: Extreme, nonpitting edema, diameter significantly less than right, with redness, tenderness to just proximal the knee. An open wound is noted on the posterior aspect without purulent discharge. DP pulses 1+, PT pulses not appreciated. Toes cool Left hip: Tender to palpation over inguinal lymph nodes. Back: Normal to inspection, tender over left CVA, greater with palpation than percussion. Head: Atraumatic, normocephalic. Eyes: No scleral icterus or injection. No discharge. Vision grossly intact. ENT: Voice clear, hearing grossly intact. Respiratory: Regular rate and rhythm. Breath sounds present, clear to auscultation and equal bilaterally. No respiratory distress. No increased work of breathing, speaks in complete sentences. Cardiovascular: Regular rate and rhythm, without murmur, gallop or rub. No pedal edema. Gastrointestinal: Obese abdomen non-tender without guarding or rebound. Bowel sounds normoactive. Skin: Warm and dry. Neurological: Grossly nonfocal. Psychological: Alert and oriented. Speech appropriate, linear and logical. Behavior appropriate. Initial Vital Signs Vital Signs (First) Date Time Temp Pulse Resp B/P Pulse Ox O2 Delivery O2 Flow Rate FiO2 04/15/17 14:55 36.7 91 18 151/94 96 Room Air Initial VS: Vital signs abnormal (elevated blood pressure) Interpretation & Diagnostics Lab Results Interpretation Result Diagram: 04/15/17 1533 04/15/17 1533 Test 04/15/17 15:20 04/15/17 15:33 Erythrocyte Sedimentation Rate 67mm/hr (0-15) Procalcitonin 0.08ng/mL (0.00-0.08) White Blood Count 8.0th/mm3 (3.8-10.1) Red Blood Count 4.35mil/mm3 (4.40-5.80) Hemoglobin 11.4g/dL (13.8-17.2) Hematocrit 36.6% (41.0-50.0) Mean Corpuscular Volume 84.1fL (81-100) Mean Corpuscular Hemoglobin 26.2pg (27.0-35.0) Mean Corpuscular Hemoglobin Concent 31.1% (32.0-37.0) Red Cell Distribution Width 15.5% (12.3-15.4) Platelet Count 291bil/L (150-400) Neutrophils (%) (Auto) 72.5% (40-74) Lymphocytes (%) (Auto) 17.9% (14-46) Monocytes (%) (Auto) 7.9% (4-12) Eosinophils (%) (Auto) 1.3% (0-5) Basophils (%) (Auto) 0.1% (0-3) Sodium Level 141mEq/L (134-144) Potassium Level 4.7mEq/L (3.5-5.2) Chloride Level 101mEq/L (97-108) Carbon Dioxide Level 25mmol/L (18-29) Blood Urea Nitrogen 18mg/dL (6-24) Creatinine 1.23mg/dL (0.76-1.27) Estimat Glomerular Filtration Rate 68mL/min (>59) Glucose Level 189mg/dL (60-99) Lactic Acid Level 2.2mmol/L (0.4-2.0) Calcium Level 9.3mg/dL (8.5-10.1) Total Bilirubin 0.3mg/dL (0.0-1.2) Aspartate Amino Transf (AST/SGOT) 40U/L (0-50) Alanine Aminotransferase (ALT/SGPT) 24U/L (0-44) Alkaline Phosphatase 68U/L (25-150) Total Protein 8.4g/dL (6.4-8.4) Albumin 2.8g/dL (3.4-5.0) Re-Eval/Medical Decision Med Decision/Clinical Course For 2-year-old male with a history of cellulitis and sepsis presents with a chief complaint of lower extremity pain. Diagnosis from 2 days ago with cellulitis, placed on Keflex and Bactrim. Ultrasound negative for DVT at that time. Reports increasing pain, swelling. Patient is morbidly obese with significant edema, stasis dermatitis and a sore on the posterior left lower leg. Negative purulent drainage. Redness, tenderness swelling noted and bilateral lower extremity. Patient states they are significantly above baseline. CBC reveals no leukocytosis, lactate slightly high at 2.2. I reassured that the patient is not septic and that this is unlikely to be caused by DVT. Patient is started on ceftriaxone IV. Discussed this case with Dr. matt, who met with and examined the patient. We feel that considering the patient's comorbidities, admission for IV antibiotic therapy is reasonable. Discussed the case with Dr. Resendiz, who accepts the patient. Consultation : Referral / Consult Name: Victor Manuel Hansen MD Call Returned at: 16:18 Decorator Mannequin: Accepts admit Discharge & Departure Impression: Primary Impression: Cellulitis Site of cellulitis: extremity Site of cellulitis of extremity: lower extremity Laterality: left Qualified Code: L03.116 - Cellulitis of left lower limb Disposition: ADMITTED TO HOSPITAL Referrals: Michael Walton DO (PCP) EDSupervising Provider for APC: Olivier Matt MD Attending Statement Attending attestation: I saw this patient in conjunction with Joey Park PA-C. I was present for all díaz portions of the history taking and physical examination. I agree with the workup, evaluation, treatment and disposition. Olivier Matt MD copies to: Michael Walton Seth PA-C April 15, 2017 15:27 Olivier Matt MD April 15, 2017 23:59
[2017-04-15 15:36] LABS: BASOPHILS % (AUTO) 0.1 % (0-3); EOSINOPHILS % (AUTO) 1.3 % (0-5); MONOCYTES % (AUTO) 7.9 % (4-12); Mean Corpuscular Hemoglobin 26.2 pg (27.0-35.0); Mean Corpuscular Volume 84.1 fL (81-100); NEUTROPHILS % (AUTO) 72.5 % (40-74); Platelet Count 291 bil/L (150-400)
[2017-04-15] MEDS: HYDROmorphone 0.5 mg/0.5 mL iSecure Syringe IVPUSH PRN ×4 (15:36→19:04)
[2017-04-15] MEDS ORDERED: cefTRIAXone Inj 2,000 MG in Dextrose 5% Minibag Plus 50 ML IV ONE (16:05)
[2017-04-15] MEDS ORDERED: HYDROcodone-APAP 5-325 mg Tablet PO PRN (16:20)
[2017-04-15] MEDS ORDERED: Polyethylene Glycol (PEG) 17 Gm Powder PO PRN (16:20)
[2017-04-15] MEDS ORDERED: Ondansetron 2 mg/mL 2 mL Inj IVPUSH PRN (16:20)
[2017-04-15] MEDS ORDERED: Alum-Mag Hydrox-Simeth 30 mL Suspension PO PRN (16:20)
[2017-04-15 16:26] VITALS: BP 138/64; PULSE 65; RESP 20; O2SAT 95
[2017-04-15] MEDS ORDERED: OXYC10TA8 PO (16:43)
[2017-04-15] MEDS ORDERED: GABA600T2 PO (16:43)
[2017-04-15] MEDS ORDERED: LISI10TA PO (16:43)
[2017-04-15 17:07] VITALS: BP 138/64; PULSE 65; RESP 20; O2SAT 95
[2017-04-15 17:33] VITALS: BP 122/74; PULSE 60; RESP 17; O2SAT 96
--- NOTE | 2017-04-15 18:07 | NUR ---
Admit Patient admitted to room 1031 from ER for bilat cellulitis of lower extremities. Pt has redness and on left leg posterior calf surface area open area . Patient stated this has been ongoing at least 1 month. Pt c/o pain 7/10 oxycodone 10 mg po given. Full skin check not done at this time. Patient denied any other skin issues other than his lower legs.
--- NOTE | 2017-04-15 18:47 | PCM.HPMED ---
Subjective Date of Service April 15, 2017 Primary Provider: Admitting Physician: Victor Manuel Hansen MD Primary Care Physician: Michael Walton DO Attending Physician: Victor Manuel Hansen MD Chief Complaint: Leg pain, swelling, generalized malaise feeling "pre-septic" History of Present Illness: 42-year-old male suffers from superobesity BMI of 87.5 admitted to the hospital with recurrence of cellulitis. The story I get is that there is no open wound on the left and this is where it started on Thursday. Patient was seen in the emergency room had normal Dopplers done and sent home on Bactrim and Keflex. Since then the pain has worsened, patient has begun to feel worse just a nonspecific state of malaise with worsening pain, and the pain in the area deep erythema and edema has now traveled to the right leg. Now he feels that that is the worst leg but they are both redder and more edematous than they have been. In addition to that the pain is decreasing his ability to ambulate. No measured fevers or chills, his right hand hurts but this is not a new problem particularly his right thumb cannot pick anything up. No breathing new breathing problems no new bowel or urinary issues. Review of Systems: Gen.: No fevers chills weight loss weight gain Eyes: no visual disturbances or blurring vision HEENT: No nose/throat drainage, no pain in ears or throat, no hearing loss Lymph: No lymph nodes noted Cardiac: No chest pain, orthopnea, PND, palpitations , pedal edema or dyspnea on exertion Pulmonary: no cough, wheezing or bringing up of sputum GI: No anorexia nausea vomiting blood or black in the stool : no dysuria hematuria urinary frequency or decrease in urine output Musculoskeletal: Joint swelling no joint pain no new muscle aches or back pain Neuro: No syncope, seizures no loss of consciousness no new focal weakness, numbness or tingling Psychiatric: New new anxiety insomnia or depression Endocrine: No new heat or cold intolerances polyuria or polydipsia Hematology: No lymphadenopathy or easy bleeding or bruising noted skin: No new rashes, stasis dermatitis Allergies Coded Allergies: linezolid (Verified Allergy, Intermediate, Hives, rash, itching, 02/12/17) levofloxacin (Verified Allergy, Unknown, 02/12/17) vancomycin (Verified Adverse Reaction, Intermediate, "Kidneys Shut Down", 02/12/17) Home Medications Lisinopril 10 mg daily Gabapentin 600 mg twice a day Oxycodone 20 mg every 4 Zoloft 100 mg daily PMH 1. Recurrent cellulitis right lower extremity, also hx of abdominal cellulitis 2. Severe lymphedema of right lower extremity greater than left. 3. Severe Morbid obesity with BMI of 80.9 4. Hypertension. 5. Chronic pain with narcotic dependence. 6. Seasonal allergies. 7. Obstructive sleep apnea. CPAP intolerant. 8. Fibromyalgia. 9. Arthritis 10. Depression/Anxiety 11. Venous insufficiency of the lower extremities 12. Insomnia 13. Nephrotic syndrome with minor glomerular abnormality 14 or erectile dysfunction 15 diabetes mellitus type II not insulin-dependent No hx of MRSA Surgical History Hernia repair Cholecystectomy Family History Father - diabetes Mother - Hypertension, diabetes, stroke Social History Hx Alcohol Use: No Hx Substance Use: No Hx Tobacco Use: No Smoking Status: Never Smoker Living Arrangement: with Family Social History Hx Alcohol Use: No Hx Substance Use: No Hx Tobacco Use: No Smoking Status: Never Smoker Exam Vital Signs Vital Sign - Last Date Time Temp Pulse Resp B/P Pulse Ox O2 Delivery O2 Flow Rate FiO2 04/15/17 17:33 36.7 60 17 122/74 96 Room Air Exam Gen.- A+ O 3 no apparent distress. Massively obese male lying in bed Eyes- open conjunctiva clear, pupils equal nonicteric Mouth- oral mucosa moist, no exudate ENT- ears normal, nose normal Neck- supple/trach midline CVS- RRR no murmur or gallop, massive edema of lower extremities Lungs- CTA GI- NABS/NT soft, massive pannus Musc- moving 4 no obvious deformity Neuro- cranial nerves II through XII intact to gross examination, nonfocal Skin- warm and dry, no rashes/lesions/wounds noted Skin thickening bilaterally with stasis dermatitis erythema, skin breakdown there are 3-4 wounds that patient says are new on the left calf largest being about 3 cm in diameter Skin is erythematous and folded down over her right malleolus, right foot is actually white whereas left foot shows erythema. Psych- pleasant and appropriate, Lab and Diagnostics Result Diagram: 04/15/17 1533 04/15/17 1533 12-lead ECG Echocardiogram Report:11/07/2016 11:34 AM Technically difficult study due to body size. Mild concentric left ventricular hypertrophy with ejection fraction 60-65%. The E/A ratio is reversed, suggesting impaired early relaxation of the left ventricle or a reduced preload state. Moderately dilated left atrium. No obvious valvular abnormaltity. Comparison is made with the echocardiogram of 05/06/12, there has been no significant change. Electronically signed by: Fan Martin on Reading Physician:11/07/2016 11:34 AM Assessment & Plan 42-year-old male with super morbid obesity and recurrent cellulitis has had skin breakdown of the left leg and now worsening erythema/edema and pain of both extremities. He had to choose his left lower extremity hurts more but the right lower extremity has become more swollen/erythematous/edematous than the left. We will treat with elevation and IV antibiotics and probe check pro calcitonin level and get infectious disease involved. Stasis dermatitis/cellulitis -Starting patient on cefazolin 2 g IV every 6, patient got dose Rocephin in ED -Consulting infectious disease Dr. Eddy as he is familiar with this patient -Wound care consultation Lower extremity edema- -result of massive body habitus -Elevating legs is much as possible Right hand pain-x-ray hand Hyperuricemia-patient denies any symptoms of gout but were repeating a uric acid level -Likely result of obesity and CK D NIDDM-A1c 6.6 02/17/16, no interventions warranted -Patient actually denied having and he was informed he was indeed a diabetic Chronic continuous opiate dependence-continued pain control Depression-continue Zoloft HTN-continue lisinopril Super morbid obesity-Dr. Givens going to persuade this patient of weight loss Rheumatoid arthritis-not on any medications, he does not seem to have any sequelae that would suggest need for treatment at this time. Sleep apnea- intolerant of CPAP Prophylaxis- SCDs are really not doable, heparin 5000 units every 8 given body habitus, PPI not indicated Disposition- patient comes from home is a full code Victor Manuel Hansen MD April 15, 2017 18:47
--- NOTE | 2017-04-15 19:01 | DRSVH ---
PROCEDURE: X-RAY LEFT HAND, MINIMUM THREE VIEWS ([id number]) INDICATIONS: 42 year-old male with rheumatoid arthritis and left thumb pain. TECHNIQUE: 3 views of the hand(s) acquired. COMPARISON: [facility], , HAND MIN 3VW (LT), 04/30/2012, 7:55. FINDINGS: Bones: No fractures or dislocations. No bony erosions. There is negative ulnar variance. Carpal bon es are normally aligned. No suspicious bony lesions. Soft tissues: No suspicious soft tissue calcifications. IMPRESSION: 1. No radiographic explanation for left thumb pain. 2. Negative ulnar variance, without radiographic evidence for lunate avascular necrosis. Dictated by: Josh Campo M.D. on 04/15/2017 at 18:58 Approved by: Josh Campo M.D. on 04/15/2017 at 19:00
[2017-04-15] MEDS: Heparin 5,000 Unit/mL Inj SUBQ SCH (19:58)
[2017-04-15] MEDS: HYDROmorphone 1 mg/mL Inj IVPUSH PRN ×2 (19:58→23:53)
[2017-04-15] MEDS ORDERED: CeFAZolin Inj 2 GM in IV Premix 1 EACH IV SCH (20:30)
[2017-04-15] MEDS ORDERED: 0.9% Sodium Chloride 250 ML ONE (20:33)
[2017-04-15 20:40] VITALS: BP 164/77; PULSE 88; RESP 16; O2SAT 94
[2017-04-15] MEDS: CeFAZolin Inj 2 GM in IV Premix 1 EACH IV SCH (20:45)
[2017-04-16 01:20] VITALS: BP 149/82; PULSE 75; RESP 18; O2SAT 94
[2017-04-16] MEDS: CeFAZolin Inj 2 GM in IV Premix 1 EACH IV SCH ×3 (02:08→16:49)
[2017-04-16] MEDS: Heparin 5,000 Unit/mL Inj SUBQ SCH ×3 (02:49→16:49)
--- NOTE | 2017-04-16 03:19 | NUR ---
Pain Patient c/o 8/10 LLE pain at beginning of shift. Vernon 2 tabs given by day shift RN with no relief. Had 4mg Morphine IVP ordered, but patient states he doesn't like the way it makes him feel. Dr. Ofe rainey @ [phone]. MS d/c'd and Dilaudid 1mg IVP Q4hour PRN ordered. Alternating Dilaudid 1mg IVP with Oxycodone 20-40mg PO this shift with effective results. Pain currently down to 5/10, and patient stating 3/10 is where he's most comfortable. Patient elevating legs as much as he can.
[2017-04-16] MEDS: HYDROmorphone 1 mg/mL Inj IVPUSH PRN ×5 (04:42→22:18)
[2017-04-16 05:40] VITALS: BP 148/84; PULSE 75; RESP 18; O2SAT 96
[2017-04-16 05:58] LABS: BASOPHILS % (AUTO) 0.1 % (0-3); EOSINOPHILS % (AUTO) 2.7 % (0-5); MONOCYTES % (AUTO) 9.5 % (4-12); Mean Corpuscular Hemoglobin 26.3 pg (27.0-35.0); Mean Corpuscular Volume 82.4 fL (81-100); NEUTROPHILS % (AUTO) 57.6 % (40-74); Platelet Count 257 bil/L (150-400)
[2017-04-16 06:20] LABS: ERYTHROCYTE SEDIMENTATION RATE 69 mm/hr (0-15)
--- NOTE | 2017-04-16 10:55 | CONS ---
[address] [address] CONSULTATION REPORT PATIENT: PO DELGADO : 1975 MR#: [id number] ADMIT: 04/15/2017 JOB ID: [id number] DATE OF SERVICE: 04/16/2017 RENAL CONSULTATION: HISTORY: The patient is a very pleasant 42-year-old gentleman who was well known to me from previous consultations. He was admitted to [facility] for acute cellulitis of both distal lower extremities. Renal consultation is being sought for further evaluation of his nephrotic syndrome. He has a history of super morbid obesity with a body mass index in excess of 60. He also has a history of nephrotic syndrome and this is most likely due to obesity related focal segmental sclerosis. I have seen the patient on several occasions, both inpatient and outpatient. He is awaiting further evaluation for gastric surgery for this obesity. He has a longstanding history of severe renal venous insufficiency along with severe lymphedema more pronounced on the right as compared to the left. He has had several episodes of cellulitis in the past. Most recently, he states that he has had worsening of his chronic lower extremity pain with involvement of his back. He has been seen by [facility] and states that the medication is not covering his pain no doubt related to his significant body mass index. He has had worsening of erythema, pain, of his distal lower extremities and he denies any fever, chills, nausea, vomiting, chest pain, shortness of breath, nausea or vomiting. He ambulates with a motorized scooter vehicle. As noted above, the etiology of his renal failure is due to obesity related focal segmental sclerosis. He has been evaluated in the past and was found to have anywhere between 5 and 8 g of protein per 24 hour period. There is also a history of type 2 diabetes. PAST MEDICAL HISTORY: Is significant for: 1. Severe morbid obesity. 2. Severe venous insufficiency and lymphedema of both lower extremities. 3. Hypertension with hypertensive heart disease and hypertensive nephrosclerosis. 4. Chronic pain. 5. Obstructive sleep apnea for which he is unable to use CPAP. 6. Diffuse osteoarthritis. 7. Fibromyalgia. PAST SURGICAL HISTORY: Is significant for: 1. Cholecystectomy. 2. Hernia repair. ALLERGIES: He is allergic to VANCOMYCIN, LINEZOLID and LEVOFLOXACIN. SOCIAL HISTORY: He denies use of alcohol, tobacco or illicit drugs. CURRENT MEDICATIONS: At time of my evaluation, include cefazolin, ceftriaxone, chlorthalidone, gabapentin, hydromorphone, lisinopril and oxycodone. FAMILY HISTORY: Noncontributory. REVIEW OF SYSTEMS: As detailed above. Otherwise is unremarkable. PHYSICAL EXAMINATION: Revealed a morbidly obese 42-year-old white male who was alert and oriented x3, in no distress at time of my evaluation. His blood pressure is 148/84 with a pulse rate of 75. HEENT examination is unremarkable. Sclerae, cornea and conjunctivae along with pupils and extraocular muscles were within normal limits. Neck is supple, although large but there was no cervical adenopathy or thyromegaly noted. I could not ascertain jugular venous distention. Lungs were grossly clear though markedly diminished because of the body habitus. His heart was regular but quite distant. Abdomen was distended and pendulous but no tenderness, rebound, guarding or masses were noted. Extremities showed evidence of half and half nails and extensive lymphedema involving both extremities much more pronounced on the right as compared to the left. There were chronic skin changes noted throughout both extremities with extensive brawny induration. There were several superficial ulcerations on the medial posterior aspect of the left lower extremity. There was generalized erythema, however, no lymphangitis or exudates were noted. Otherwise skin turgor was good and there is no evidence of any other rashes. LABORATORY EXAMINATION: This morning, his sodium is 142, potassium 4.6, chloride of 103, bicarbonate of 31, BUN and creatinine were 17 and 1.17. Glucose is 120. Uric acid is 9.1. His white count on admission was 8.0, hematocrit 36.6, hemoglobin of 11.4. Red cell indices, platelet count and differential were normal. His sed rate was 69. IMPRESSION: 1. Nephrotic syndrome secondary to obesity related focal segmental sclerosis. 2. Hypertension with hypertensive heart disease and hypertensive nephrosclerosis. 3. Metabolic syndrome. 4. Hyperuricemia. 5. Severe bilateral lymphedema more pronounced on the left as compared to the right. 6. Venous insufficiency. 7. Cellulitis. RECOMMENDATION: I would like to start him on allopurinol 100 mg once a day and I would also like to get a urine for protein creatinine ratio. Once again, I would like to thank you for allowing me to participate in the care of this most pleasant but unfortunate patient. I will be following him closely with you.
--- NOTE | 2017-04-16 13:03 | CONS ---
[address] [address] CONSULTATION REPORT PATIENT: PO DELGADO : 1975 MR#: [id number] ADMIT: 04/15/2017 JOB ID: [id number] INFECTIOUS DISEASE CONSULTATION: DATE OF SERVICE: 04/16/[address] Hansen for this timely consult. REASON FOR CONSULTATION: Lymphedema, super morbid obesity, and recurrent cellulitis. HISTORY OF THE PRESENT ILLNESS: The patient is a 42-year-old gentleman, well-known to me from multiple prior admissions. He weighs in excess of 600 pounds and has chronic lymphedema of both lower extremities, right worse than left, as well as venous insufficiency and recurrent cellulitis. Most, if not all, of his recent episodes of cellulitis which have led him into the hospital have been streptococcal and he has a persistently very elevated ASO titer. The patient was last discharged a couple of months ago and was taking oral amoxicillin in an attempt to prevent recurrent decompensation and infection events. He notes that he was doing reasonably well at home until Thursday when he started to develop warmth and tenderness in both lower extremities. He also noted some tenderness on the left groin which is not typical of these episodes. Because of these symptoms, the patient came to the emergency department and was evaluated earlier this week. They felt his cellulitis was just getting started and prescribed Keflex plus trimethoprim-sulfamethoxazole. He took these drugs for a couple of days but without relief, and in fact, started to get worse. By yesterday, he had quite severe pain in both lower extremities but especially on the left with some left groin tenderness and an associated fever which he did not measure. There were no chills, headache, nausea, vomiting or pulmonary symptoms. Because of his concern about becoming septic again, he reported back to the emergency department and was admitted. Following admission, appropriate cultures were done and he was started on cefazolin 2 g IV q.6 hours. He reports that overnight he seems a bit better though it is obviously a little early to tell. This morning he has no fevers, chills, or sweats. He has not have any headache, sore throat, nausea, vomiting or any other constitutional symptoms. He still has pain in both lower extremities below the knee especially posteriorly and some left inguinal tenderness. PAST MEDICAL HISTORY: 1. Super morbid obesity with BMI in the 80-90 range and weight 600-650 pounds. 2. Recurrent soft tissue infections more frequently in the left than the right lower extremity. 3. Lymphedema with venous stasis of both lower extremities. 4. Hypertension. 5. Fibromyalgia. 6. Back pain. 7. Depression. 8. Sleep apnea. SOCIAL HISTORY: The patient is disabled by back pain and super morbid obesity. He does not smoke or drink and lives with his and three children. FAMILY HISTORY: Negative for TB in his first and second-degree relatives. REVIEW OF SYSTEMS: The patient states that he has no significant headache. No pain in the eyes. No visual change. No sore throat. No stiff neck. No nausea, vomiting. No cough, shortness of breath, chest pain. No nausea, vomiting, diarrhea, or dysuria. Remainder of the review of systems negative. PHYSICAL EXAMINATION: Reveals a super morbidly obese gentleman lying supine in his hospital bed. He does not appear to be in any distress and looks as I have seen him on many prior admissions and clinic visits. He has been afebrile since admission. On this occasion, temperature is now 36.7, pulse 75, respiratory rate 18, blood pressure 148/84. He is saturating well on room air. Examination of the mental status reveals him to be completely clear. Eyes without conjunctivitis. Oral cavity without thrush or pharyngitis. Neck is massively obese and cannot really be examined. Lungs: Distant breath sounds, but as far as I can tell, clear. Cardiac tones very distant. Regular rate and rhythm without notable murmur. Abdomen is super obese with massive pannus; none of this appears to be infected. I obviously cannot palpate whether not he has any organomegaly. He does not have a Reddy catheter. His left groin has some tenderness along the inguinal fold and though I cannot appreciate any discrete lymph nodes, this would be the area where one would expect an inguinal lymph node. It is not present on the right and there is no tenderness there. Both lower extremities have massive lymphedema and it is especially severe below the knee with orange peel type appearance to both legs. The right leg is actually much more swollen than the left and this is on a chronic basis. The left lower extremity has a patch of about 4 x 3 cm of denuded skin along the medial aspect of the calf. This does not appear to be grossly infected nor is there any purulence or anything to culture there. Both lower extremities are warm below the knee especially posteriorly and this is more pronounced on the left than the right. There is some tenderness which is more pronounced as well on the left than the right, suggesting the presence of at least left-sided cellulitis. Patient does have circulation to his feet with reasonable capillary refill. There is no evidence for synovitis but it is most difficult to evaluate his joints. LAB STUDIES: Include white count 7000, a normal diff. Sed rate 69. Creatinine 1.18. Procalcitonin 0.1, and last night 0.08. Urinalysis with 6-10 white cells, today. Yesterday's had 11-50. RPR is negative. I note that during his last admission two months ago, we had checked an ASO titer and it was around 500, but I plan to repeat it today as it would take considerable time for that to fall to a normal level. Recent blood cultures from his last couple of admissions are negative as are MRSA swabs of the nares from his January admission. From this admission, we have two sets of blood cultures which are so far negative and no other micro is pending. The patient had an x-ray of the left hand on admission because he had some pain in that area though that has improved already. No anatomic explanation for his left thumb pain was found. In addition, a venous duplex was done of his lower extremities; on both sides actually and these found no evidence for DVT. IMPRESSION: This is an unfortunate, 42-year-old gentleman who has super morbid obesity and recurrent lower extremity cellulitis. As has been the case in most of his recent admissions, the skin changes on his lower extremities certainly appear to be consistent with cellulitis and more likely with what is called nonpurulent or streptococcal cellulitis. In reviewing his chart, there is no evidence that he has ever had MRSA and I think it is reasonable to cover him with cefazolin as we observe his course. If methicillin-resistant Staphylococcus aureus was more of a consideration, we would have to use ceftaroline as the patient does not tolerate vancomycin or linezolid. RECOMMENDATIONS: 1. Will continue with cefazolin though at 2 g IV q.8 h. 2. I have made that dosage adjustment. 3. Once the patient is significantly improved, I think he could be discharged home on a reasonable oral regimen such as cefdinir or Keflex, but I would certainly keep him in-house for a day or two until we see evidence of significant improvement. 4. I will be out of town for the next four days, returning on April 21, but I can be reached by telephone about this or any other patient.
[2017-04-16 13:22] VITALS: BP 137/79; PULSE 83; RESP 18; O2SAT 98
--- NOTE | 2017-04-16 13:48 | NUR ---
NUTRITION CONSULT: Consult received for wt loss education due to pt with morbid obesity. Pt has been seen numerous times (08/21/04, 06/19/11, 09/23/16, 11/06/16, 12/17/16) on previous admits and has already been referred to the [facility] outpt program for nutrition counseling. No nutritional education provided at this time. Will continue to monitor.
--- NOTE | 2017-04-16 15:26 | PCM.PNMED ---
Subjective Date of Service April 16, 2017 Subjective Left leg still more painful than right, but in general he is feeling better.. No chest pain, no dyspnea, no nausea or vomiting Exam Vital Signs Vital Sign - Last Date Time Temp Pulse Resp B/P Pulse Ox O2 Delivery O2 Flow Rate FiO2 04/16/17 13:22 36.4 83 18 137/79 98 Room Air Intake and Output 04/15/17 04/15/17 04/16/17 Cumulative From/Thru 15:00 23:00 07:00 04/15/17 14:55 - 04/16/17 06:48 Intake Total 900 ml 341 ml 1241 ml Output Total 400 ml 2700 ml 3100 ml Balance 500 ml -2359 ml -1859 ml Intake Oral 400 ml 200 ml 600 ml IV Total 500 ml 141 ml 641 ml Output Urine Total 400 ml 2700 ml 3100 ml # Bowel Movements 0 0 Exam Gen.- A+ O 3 no apparent distress. Massively obese male lying in bed Eyes- open conjunctiva clear, pupils equal nonicteric ENT- ears normal, nose normal Neck- supple/trach midline CVS- RRR no murmur or gallop, massive edema of lower extremities Lungs- CTA GI- NABS/NT soft, massive pannus Musc- moving 4 no obvious deformity Neuro- cranial nerves II through XII intact to gross examination, nonfocal Skin- warm and dry, noted- legs are clinically less red and perhaps a bit less swollen I personally examined the skin folds and did not find any significant lesions Skin thickening bilaterally with stasis dermatitis erythema, skin breakdown there are 3-4 wounds that patient says are new on the left calf largest being about 3 cm in diameter Skin is erythematous and folded down over her right malleolus, right foot is actually white whereas left foot shows erythema. Multiple tattoos on torso in particular right side is a series of his mother throughout her ages Psych- pleasant and appropriate, Lab and Diagnostics Result Diagram: 04/16/17 0540 04/16/17 0540 X-Rays, CTs and MRIs X-RAY LEFT HAND, 3VIEWS Josh Campo M.D. on 04/15/2017 at 18:58 1. No radiographic explanation for left thumb pain. 2. Negative ulnar variance, without radiographic evidence for lunate avascular necrosis. 12-lead ECG Echocardiogram Report:11/07/2016 11:34 AM Technically difficult study due to body size. Mild concentric left ventricular hypertrophy with ejection fraction 60-65%. The E/A ratio is reversed, suggesting impaired early relaxation of the left ventricle or a reduced preload state. Moderately dilated left atrium. No obvious valvular abnormaltity. Comparison is made with the echocardiogram of 05/06/12, there has been no significant change. Electronically signed by: Fan Martin on Reading Physician:11/07/2016 11:34 AM Assessment & Plan 42-year-old male with super morbid obesity and recurrent cellulitis has had skin breakdown of the left leg and now worsening erythema/edema and pain of both extremities. He had to choose his left lower extremity hurts more but the right lower extremity has become more swollen/erythematous/edematous than the left. We will treat with elevation and IV antibiotics and probe check pro calcitonin level and get infectious disease involved. 04/16 cellulitis improved, thank you Dr. Eddy infectious disease making adjustment antibiotics and consultation, thank you Dr. Walton consulting re hyperuricemia and focal segmental sclerosis secondary to obesity. allopurinol+ prot/cr noted. Patient expected confinement one to 2 more days at least. Stasis dermatitis/cellulitis -Starting patient on cefazolin 2 g IV every 8, patient got dose Rocephin in ED -Consulting infectious disease Dr. Eddy as he is familiar with this patient -Wound care consultation Lower extremity edema- -result of massive body habitus -Elevating legs is much as possible Right hand pain-x-ray hand Hyperuricemia-patient denies any symptoms of gout but were repeating a uric acid level -Likely result of obesity and CKD -Thank you Dr. Walton nephrology consult, allopurinol + prot/cr noted NIDDM-A1c 6.6 02/17/16, no interventions warranted -Patient actually denied having and he was informed he was indeed a diabetic Chronic continuous opiate dependence-continued pain control Depression-continue Zoloft HTN-continue lisinopril Super morbid obesity-Dr. Givens going to persuade this patient of weight loss Rheumatoid arthritis-not on any medications, he does not seem to have any sequelae that would suggest need for treatment at this time. Sleep apnea- intolerant of CPAP Prophylaxis- SCDs are really not doable, heparin 5000 units every 8 given body habitus, PPI not indicated Disposition- patient comes from home is a full code Victor Manuel Hansen MD April 16, 2017 15:26
--- NOTE | 2017-04-16 15:47 | NUR ---
Social Work- Initial Assessment Data: See Initial Assessment. Pt is a 42 year old male admitted 04/15/17 for left leg cellulitis per H&P. Pt continues to receive IV abx. Pt's PCP is Raji. Pt's insurance is [facility]. SW received case management referral, met with pt at bedside regarding discharge plan, SW role explained. Pt alert and oriented x3. Pt's identified support person is Deb Flannery [phone]. Pt resides at home with his and children ages 22, 19, 17 where he is independent at baseline. 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 Pt uses an electric scooter or cane at baseline. Pt does not drive very often. Pt has no HH or SNF history. Pt has no LTC or VA benefits. SW provided DPOA paperwork at bedside. At this time, pt anticipates to discharge home with to transport via POV. SW will follow for HH orders if medically indicated. Assessment: Pt who is independent at baseline. Plan: SW to follow for HH orders if medically indicated. At this time, pt anticipates discharge home with to transport via POV. SAÚL Davis Addendum: 04/16/17 at 1554 by BRIAN CAPELLAN Amended: Links added.
--- NOTE | 2017-04-16 15:54 | NUR ---
PAIN C/o sharp, burning 8/10 pain to bilateral LE. Elevated with pillows. Administered oxy 20mg, alternating with IV dilaudid 1mg. Also tried oxy 40mg to see if pain would be better controlled. Patient states pain was down to 4-5/10, ideal would be 3/10. Patient has been dealing with chronic pain for a while in BLE. Also states appetite is decreased from pain. Encouraged to keep legs elevated. Continue to monitor.
--- NOTE | 2017-04-16 16:02 | NUR ---
Wound Note Wound orders received, patient seen at bedside. Morbidly obese male with lymphedema right le worse than right. Presents with superficial abrasions at medial left calf which is approximately 7 cm x 5 cm, theses neither drain or appear infected at this time. For the most part patient is exquisitely tender to the touch at both lower extremities, likely from cellulitis. No current wound care needs.
[2017-04-16 21:05] VITALS: BP 143/80; PULSE 92; RESP 24; O2SAT 94
[2017-04-17] VITALS (10 sets, daily range): BP systolic 107–165; BP diastolic 52–102; PULSE 77–116; RESP 16–24; O2SAT 88–96
[2017-04-17] MEDS: CeFAZolin Inj 2 GM in IV Premix 1 EACH IV SCH ×3 (00:32→19:40)
[2017-04-17] MEDS: Heparin 5,000 Unit/mL Inj SUBQ SCH ×3 (00:32→19:40)
--- NOTE | 2017-04-17 02:38 | NUR ---
Activity/Pain Patient up and showered this shift with set up assist. Complaining of increase in pain to LLE after walking around on it. Rating pain a 6-7/10 at it's highest. Alternating Oxycodone 40mg PO with Dilaudid 1mg IVP. Pain down to a 5/10 at it's lowest point. States a 3/10 would be the most comfortable for him. Encouraging patient to keep left leg elevated as much as possible.
[2017-04-17] MEDS: HYDROmorphone 1 mg/mL Inj IVPUSH PRN ×2 (02:46→07:54)
[2017-04-17 08:37] LABS: BASOPHILS % (AUTO) 0.3 % (0-3); EOSINOPHILS % (AUTO) 3.1 % (0-5); MONOCYTES % (AUTO) 9.3 % (4-12); Mean Corpuscular Hemoglobin 26.5 pg (27.0-35.0); NEUTROPHILS % (AUTO) 64.6 % (40-74); Platelet Count 267 bil/L (150-400)
--- NOTE | 2017-04-17 10:10 | NUR ---
0900 - called to pt. room to assess/check CO2 level. Pt. placed on monitor. RA sats 87-88 when dozing. ETCO2 54. Pt. placed on VPAP per 's orders. Will continue to monitor.Oxygen bleedin at 6 lpm for sats of 94-96%.
--- NOTE | 2017-04-17 11:00 | NUR ---
RESP/DROWSY Patient was drowsy during morning assessment, stated he felt really tired and didn't get much sleep last night. [place] like he was retaining CO2 (as this had happened prior). MD notified and received order to place on CPAP, patient has known history of ENEDINA. Called RT to do spot check with capnography. He was placed on O2 via NC and then placed on CPAP with 6 LPM bleed in, set up by RT. Patient has agonal breathing while sleeping, CPOX readings vary from 50-80% while sleeping. Patient is pink in color, RR 18. Once patient is woken up he is alert and communicative. O2 sats come up to 94%. MD notified of patient current status. Continuing to monitor patient closely.
[2017-04-17] MEDS: Mineral Oil-Petr Hydrophillic 50 Gm Ointment TOPICAL SCH ×2 (12:39→22:55)
--- NOTE | 2017-04-17 14:52 | PCM.PNMED ---
Subjective Date of Service April 17, 2017 Subjective "Things just do not feel right". Patient is somnolent today felt like he was awake all night because his legs were bothering him. He understands he needs to stop the IV Dilaudid because he is not breathing and he actually wants NIPPV Exam Vital Signs Vital Sign - Last Date Time Temp Pulse Resp B/P Pulse Ox O2 Delivery O2 Flow Rate FiO2 04/17/17 13:17 36.6 116 24 160/84 96 CPAP 6.00 Intake and Output 04/16/17 04/16/17 04/17/17 Cumulative From/Thru 15:00 23:00 07:00 04/15/17 14:55 - 04/17/17 05:39 Intake Total 110 ml 1470 ml 50 ml 2871 ml Output Total 1950 ml 5050 ml Balance 110 ml -480 ml 50 ml -2179 ml Intake Oral 1412 ml 2012 ml IV Total 110 ml 58 ml 50 ml 859 ml Output Urine Total 1950 ml 5050 ml # Bowel Movements 0 Exam Gen.- A+ O 3 no apparent distress. Massively obese male lying in bed Eyes- open conjunctiva clear, pupils equal nonicteric ENT- ears normal, nose normal Neck- supple/trach midline CVS- RRR no murmur or gallop, massive edema of lower extremities- hard to assess secondary to body habitus Lungs- CTA- hard to assess secondary to body habitus GI- NABS/NT soft, massive pannus Musc- moving 4 no obvious deformity Neuro- cranial nerves II through XII intact to gross examination, nonfocal Skin- warm and dry, noted- legs are clinically less red and perhaps a bit less swollen I personally examined the skin folds and did not find any significant lesions Skin thickening bilaterally with stasis dermatitis erythema, skin breakdown there are 3-4 wounds that patient says are new on the left calf largest being about 3 cm in diameter Skin is erythematous and folded down over her right malleolus, right foot is actually white whereas left foot shows erythema. Multiple tattoos on torso in particular right side is a series of his mother throughout her ages Psych- pleasant and appropriate, Lab and Diagnostics Result Diagram: 04/17/1782404/17/17824 X-Rays, CTs and MRIs X-RAY LEFT HAND, 3VIEWS Josh Campo M.D. on 04/15/2017 at 18:58 1. No radiographic explanation for left thumb pain. 2. Negative ulnar variance, without radiographic evidence for lunate avascular necrosis. 12-lead ECG Echocardiogram Report:11/07/2016 11:34 AM Technically difficult study due to body size. Mild concentric left ventricular hypertrophy with ejection fraction 60-65%. The E/A ratio is reversed, suggesting impaired early relaxation of the left ventricle or a reduced preload state. Moderately dilated left atrium. No obvious valvular abnormaltity. Comparison is made with the echocardiogram of 05/06/12, there has been no significant change. Electronically signed by: Fan Martin on Reading Physician:11/07/2016 11:34 AM Assessment & Plan 42-year-old male with super morbid obesity and recurrent cellulitis has had skin breakdown of the left leg and now worsening erythema/edema and pain of both extremities. He had to choose his left lower extremity hurts more but the right lower extremity has become more swollen/erythematous/edematous than the left. We will treat with elevation and IV antibiotics and probe check pro calcitonin level and get infectious disease involved. 04/16 cellulitis improved, thank you Dr. Eddy infectious disease making adjustment antibiotics and consultation, thank you Dr. Walton consulting re hyperuricemia and focal segmental sclerosis secondary to obesity. allopurinol+ prot/cr noted. Patient expected confinement one to 2 more days at least. 04/17 respiratory failure setback. Patient may need to go to [facility] as his weight and central apnea are catching up with him in conjunction with narcotic usage. Trying to maintain him on OSC with CPAP. Acute respiratory failure/Sleep apnea- intolerant of CPAP -Trial CPAP 04/17 patient may need to be moved to [facility] for BiPAP if his condition deteriorates -PCO2 by capnography was in the mid 50s 11a'mervin Stasis dermatitis/cellulitis - cefazolin 2 g IV every 8 04/15- -infectious disease/Dr. Eddy -following -Wound care consultation Lower extremity edema- -result of massive body habitus -Elevating legs is much as possible Right hand pain-x-ray hand Hyperuricemia-patient denies any symptoms of gout but were repeating a uric acid level -Likely result of obesity and CKD -Thank you Dr. Walton nephrology consult, allopurinol + prot/cr 04/16 NIDDM-A1c 6.6 02/17/16, no interventions warranted -Patient actually denied having and he was informed he was indeed a diabetic Chronic continuous opiate dependence-continued pain control Depression-continue Zoloft HTN-continue lisinopril Super morbid obesity-Dr. Givens going to persuade this patient of weight loss Rheumatoid arthritis-not on any medications, he does not seem to have any sequelae that would suggest need for treatment at this time. Prophylaxis- SCDs are really not doable, heparin 5000 units every 8 given body habitus, PPI not indicated Disposition- patient comes from home is a full code Victor Manuel Hansen MD April 17, 2017 14:52
--- NOTE | 2017-04-17 15:43 | NUR ---
HR Has been sleeping most of the day, still wearing CPAP while sleeping. CPOX in place with ear monitor, shows sats ranging anywere from 70's-94% while sleeping. Awakens to voice and loud noises easily. When awake O2 sats are in low 90's. HR has progressively increased from 74 this am to 119 now. Notified MD, received orders for telemetry and ABG's to be drawn.
--- NOTE | 2017-04-17 15:59 | ABG ---
DateTimeAnalyzed 15:50:19 -_ pH ____7.202 - 7.350 7.450 pCO2 ___86.6__ -mmHg 35.0 45.0 pO2 ___79.4__ -mmHg 70.0 100 HCO3- ___34.0__ -mmol/L 22.0 26.0 ABE ____4.9__ -mmol/L -2.0 2.0 tHb ___12.1__ -g/dL 12.0 18.0 O2Hb ___92.7__ -% 95.0 COHb ____2.2__ -% 1.5 MetHb ____0.0__ -% 0.4 1.5 sO2 ___94.8__ -% 25.0 FIO2 ___44.0__ -% Pressure_Support ___11.0__ -cmH2O PEEP ____5.0__ -cmH2O Drawn By RC - Date/Time Notified____ 15:59:00 -_ Spontaneous_RR 20 -b/min Liter_Flow ____6.00_ -L/min Oxygen Device 1 NASAL CPAP - Notified By RC - Notified Whom RADVANY,MD - K+ ____6.2__ -mmol/L tO2 ___15.9__ -Vol% Zoltan test _Positive -
--- NOTE | 2017-04-17 16:10 | NUR ---
ABG's ABG results show patient with CO2 of 87. CPAP is not working well for patient at this point. Notified MD and received orders to transfer to PCC and place patient on Bipap. Charge nurse aware. Advised patient of current orders for transfer up to 2nd floor.
--- NOTE | 2017-04-17 17:35 | NUR ---
TRANSFER TO [facility] Transported patient upstairs to room 2010. Report given to ANALIA Rashid at bedside.
--- NOTE | 2017-04-17 17:47 | NUR ---
Transfer to [facility] Pt transported in hospital bed from [facility] to room 2011 [facility]. Report received from Rene HELMS. Pt is alert and oriented x3. He is making jokes and cooperating with cares. Pt is asking to stay off bipap at this time, but will be placed on Bipap if he wants to sleep. Pt is complaining of pain to his leg, per report he is not to have opioids administered at this time as they may be contributing to his recent obtundedness. Pt does not have any other pain medications available at this time. Pt voiced understanding and is willing to wait for his next dose of Tylenol. Pt's sister is at bedside.
[2017-04-18] VITALS (7 sets, daily range): BP systolic 114–124; BP diastolic 64–77; PULSE 76–106; RESP 19–26; O2SAT 92–97
[2017-04-18] MEDS: Heparin 5,000 Unit/mL Inj SUBQ SCH ×2 (00:59→10:42)
[2017-04-18] MEDS: CeFAZolin Inj 2 GM in IV Premix 1 EACH IV SCH ×2 (00:59→10:40)
[2017-04-18 03:04] LABS: BASOPHILS % (AUTO) 0.1 % (0-3); EOSINOPHILS % (AUTO) 1.4 % (0-5); MONOCYTES % (AUTO) 8.2 % (4-12); Mean Corpuscular Hemoglobin 26.4 pg (27.0-35.0); Mean Corpuscular Volume 87.3 fL (81-100); NEUTROPHILS % (AUTO) 74.4 % (40-74); Platelet Count 261 bil/L (150-400)
[2017-04-18 03:24] LABS: ERYTHROCYTE SEDIMENTATION RATE 78 mm/hr (0-15)
--- NOTE | 2017-04-18 03:35 | NUR ---
CPAP / PAIN RX Tolerating CPAP thru NOC. spo2 remain high 90's. Reported LE pain at beginning of shift, prn oxycodone given per MD parameters: if patient refuses Cpap then hold narcotics. Slept well thru rest of NOC. LLE (calf) open area cleansed w/ warm washcloth, dried well. house lotion applied to BLE's/feet. Addendum: 04/18/17 at 0627 by ILANA SANDOVAL RN 0530: K+ 5.4 this AM, up from yesterday of 4.8. Creatinine up 1.92 this AM, up from 1.24. Info text/page sent to to update.
[2017-04-18] MEDS ORDERED: 0.9% Sodium Chloride 1,000 ML IV SCH (08:10)
--- NOTE | 2017-04-18 10:31 | NUR ---
Late Medications Per report pt had not been sleeping well at hospital. Pt was sleeping at shift change so medications were held until he woke up at 10:30am
[2017-04-18] MEDS: Mineral Oil-Petr Hydrophillic 50 Gm Ointment TOPICAL SCH (10:42)
--- NOTE | 2017-04-18 11:10 | PCM.PNNEPH ---
Subjective Date of Service April 18, 2017 Subjective The patient's doing well. His cellulitis is considerably better. He denies any headache, chest pain, or shortness of breath. He is currently utilizing his CPAP almost [id number]. Exam Vital Signs Vital Sign - Last Date Time Temp Pulse Resp B/P Pulse Ox O2 Delivery O2 Flow Rate FiO2 04/18/17 10:56 36.5 76 24 114/64 97 Nasal Cannula 3.00 04/18/17 07:31 24 Intake and Output 04/17/17 04/17/17 04/18/17 Cumulative From/Thru 15:00 23:00 07:00 04/15/17 14:55 - 04/18/17 06:05 Intake Total 1272 ml 400 ml 399 ml 4942 ml Output Total 1950 ml 850 ml 800 ml 8650 ml Balance -678 ml -450 ml -401 ml -3708 ml Intake Oral 1272 ml 400 ml 300 ml 3984 ml IV Total 99 ml 958 ml Output Urine Total 1950 ml 850 ml 800 ml 8650 ml # Voids 3 1 4 # Bowel Movements 1 0 1 Exam Neck is supple without adenopathy, or thyromegaly. Thyroid is difficult to assess his regular venous distention due to his morbid obesity. Lungs are grossly clear to auscultation. Heart is regular and rhythmical with a soft systolic murmur. Abdomen soft out any tenderness or rebound guarding masses or hepatosplenomegaly his extremities continue to show significant lymphedema more pronounced on the right as compared to the left. Lab and Diagnostics Result Diagram: 04/18/17 0258 04/18/17 0258 X-Rays, CTs and MRIs X-RAY LEFT HAND, 3VIEWS Josh Campo M.D. on 04/15/2017 at 18:58 1. No radiographic explanation for left thumb pain. 2. Negative ulnar variance, without radiographic evidence for lunate avascular necrosis. 12-lead ECG Echocardiogram Report:11/07/2016 11:34 AM Technically difficult study due to body size. Mild concentric left ventricular hypertrophy with ejection fraction 60-65%. The E/A ratio is reversed, suggesting impaired early relaxation of the left ventricle or a reduced preload state. Moderately dilated left atrium. No obvious valvular abnormaltity. Comparison is made with the echocardiogram of 05/06/12, there has been no significant change. Electronically signed by: Fan Martin on Reading Physician:11/07/2016 11:34 AM Plan Impression Impression #1 nephrotic syndrome secondary to obesity related focal segmental sclerosis #2 hypertension with hypertensive heart disease hypertensive nephrosclerosis #3 metabolic syndrome number for hyperuricemia. Recommendations #1 from my point of view he appears to be fairly stable and we will continue to follow him peripherally. Michael Walton DO April 18, 2017 11:10
[2017-04-18] MEDS ORDERED: CEPH500C PO (13:13)
--- NOTE | 2017-04-18 13:17 | PCM.DIMED ---
Discharge Instructions Date of Service April 18, 2017 Dates of Hospitalization April 15, 2017 at 16:22 Discharge Diagnosis Discharge Diagnosis Recurrent cellulitis; acute on chronic respiratory failure with hypercarbia; acute kidney injury; severe obesity Medication Instructions Additional med instructions You should complete 7 more days of antibiotics with Keflex 4 times per day. A printed prescription is given which you should fill this weekend. Test Results Test Results Serum creatinine 1.77 Patient Instructions Patient Instructions You have been advised that sure kidney function is worsened. We recommend that she stay in the hospital to have this monitored, but if you are leaving you must check in with your primary care provider on Thursday morning to have a repeat blood tests. You shouldnot take lisinopril for several days until this is rechecked. Follow-up plan You have been advised that you are leaving AGAINST MEDICAL ADVICE. We recommend close follow-up with your primary care provider. Follow-up Provider: Supa Alegria DO Follow-up with PCP in: Other (call Dr. Alegria's office on Thursday for posthospitalization follow-up) Murray Torres MD April 18, 2017 13:17
--- NOTE | 2017-04-18 14:32 | NUR ---
Leaving AMA Pt received phone call regarding a "family emergency" and asked if he could be discharged today if possible. MD was notified and discussed concerns and possible outcomes with pt. MD wanted pt to stay in the hospital until kidney function could be determined. Pt decided that he needed to leave today against medical advice. Pt was educated on the risks leaving today and was encouraged to make an appointment with his primary care provider on Thursday to have followup lab work. Pt signed AMA paperwork. Pt's IV was dc'd and telemetry was removed, tech notified. Pt left unit on his own electric scooter.
--- NOTE | 2017-04-18 16:02 | PCM.DC.MED ---
Discharge Summary Date of Service April 18, 2017 Dates of Hospitalization Date of Hospital Admission April 15, 2017 at 16:22 Date of Discharge: April 18, 2017 Providers: Admitting Physician: Victor Manuel Hansen MD Primary Care Physician: Michael Walton DO Attending Physician: Victor Manuel Hansen MD Diagnosis at Time of Discharge Diagnosis at Time of Discharge Recurrent cellulitis; acute on chronic respiratory failure with hypercarbia; acute kidney injury; severe obesity Procedures XRay, CTs & MRIs X-RAY LEFT HAND, 3VIEWS Josh Campo M.D. on 04/15/2017 at 18:58 1. No radiographic explanation for left thumb pain. 2. Negative ulnar variance, without radiographic evidence for lunate avascular necrosis. ECG 12 Lead Echocardiogram Report:11/07/2016 11:34 AM Technically difficult study due to body size. Mild concentric left ventricular hypertrophy with ejection fraction 60-65%. The E/A ratio is reversed, suggesting impaired early relaxation of the left ventricle or a reduced preload state. Moderately dilated left atrium. No obvious valvular abnormaltity. Comparison is made with the echocardiogram of 05/06/12, there has been no significant change. Electronically signed by: Fan Martin on Reading Physician:11/07/2016 11:34 AM Brief History History of Present Illness (per admission note): 42-year-old male suffers from superobesity BMI of 87.5 admitted to the hospital with recurrence of cellulitis. The story I get is that there is no open wound on the left and this is where it started on Thursday. Patient was seen in the emergency room had normal Dopplers done and sent home on Bactrim and Keflex. Since then the pain has worsened, patient has begun to feel worse just a nonspecific state of malaise with worsening pain, and the pain in the area deep erythema and edema has now traveled to the right leg. Now he feels that that is the worst leg but they are both redder and more edematous than they have been. In addition to that the pain is decreasing his ability to ambulate. No measured fevers or chills, his right hand hurts but this is not a new problem particularly his right thumb cannot pick anything up. No breathing new breathing problems no new bowel or urinary issues. Hospital Course Acute respiratory failure/Sleep apnea- intolerant of CPAP. He does not have a prior diagnosis or a home CPAP prescription. He received Trial CPAP 04/17 subsequently experienced acute hypercarbic respiratory failure, likely exacerbated by opioid analgesics, and was transferred to [facility] for high-level care with BPAP. -Improved with observation and reduction in opioid dose to 10 mg oxycodone 4 times a day - Patient is advised to follow-up with pain clinic Stasis dermatitis/cellulitis. No fever. No white count. Increased pain. Infectious disease consulted. Wound care consulted. - cefazolin 2 g IV every 8 04/15- switched to cefazolin x7days when patient indicated need to leave the hospital Acute kidney injury. Not present on admission. On day 3 creatinine rian to 1.9 to, cause unclear. Patient was advised on need for further inpatient monitoring. Lower extremity edema- -Elevating legs is much as possible Right hand pain - x-ray hand unremarkable Hyperuricemia-patient denies any symptoms of gout but were repeating a uric acid level -Likely result of obesity and CKD NIDDM-A1c 6.6 02/17/16, no interventions warranted Chronic continuous opiate dependence-continued pain control Depression-continue Zoloft HTN-continue lisinopril Super morbid obesity-Dr. Givens going to persuade this patient of weight loss Rheumatoid arthritis-not on any medications, he does not seem to have any sequelae that would suggest need for treatment at this time. Disposition: elected to leave [facility] due to family emergency. . Exam Vital Signs (Last) Date Time Temp Pulse Resp B/P Pulse Ox O2 Delivery O2 Flow Rate FiO2 04/18/17 11:52 36.6 80 22 124/72 95 Nasal Cannula 3.00 04/18/17 07:31 24 Exam General: Extremely obese man in no acute distress HEENT: sclerae anicteric, oral mucosa moist Chest: clear to auscultation Cardiac: S1S2, murmur Abdomen: BS normal, non-tender; multiple punctate ulcerations and scabs, none with acute warmth or swelling or exudate Extremities: Severe lymph edema. Bilateral lateral leg erythema with minimal warmth. No blisters. No exudate. Minimal pain Neuro: A&O, cranial nerves symmetric, motor strength 5/5, coordination normal Test 04/16/17 05:40 04/16/17 14:30 04/17/17 08:04/18/17 02:58 Uric Acid 9.1mg/dL (2.6-7.2) Procalcitonin 0.10ng/mL (0.00-0.08) Urine Random Creatinine 56mg/dL (22-328) Urine Random Total Protein 101mg/dL (0-15) Urine Protein/Creatinine Ratio 1.80 (0-200) Total Bilirubin 0.2mg/dL (0.0-1.2) Aspartate Amino Transf (AST/SGOT) 38U/L (0-50) Alanine Aminotransferase (ALT/SGPT) 24U/L (0-44) Alkaline Phosphatase 76U/L (25-150) Total Protein 8.2g/dL (6.4-8.4) Albumin 3.3g/dL (3.4-5.0) White Blood Count 8.5th/mm3 (3.8-10.1) Red Blood Count 4.01mil/mm3 (4.40-5.80) Hemoglobin 10.6g/dL (13.8-17.2) Hematocrit 35.0% (41.0-50.0) Mean Corpuscular Volume 87.3fL (81-100) Mean Corpuscular Hemoglobin 26.4pg (27.0-35.0) Mean Corpuscular Hemoglobin Concent 30.3% (32.0-37.0) Red Cell Distribution Width 14.9% (12.3-15.4) Platelet Count 261bil/L (150-400) Neutrophils (%) (Auto) 74.4% (40-74) Lymphocytes (%) (Auto) 15.7% (14-46) Monocytes (%) (Auto) 8.2% (4-12) Eosinophils (%) (Auto) 1.4% (0-5) Basophils (%) (Auto) 0.1% (0-3) Erythrocyte Sedimentation Rate 78mm/hr (0-15) Sodium Level 138mEq/L (134-144) Potassium Level 5.4mEq/L (3.5-5.2) Chloride Level 98mEq/L (97-108) Carbon Dioxide Level 26mmol/L (18-29) Blood Urea Nitrogen 24mg/dL (6-24) Creatinine 1.92mg/dL (0.76-1.27) Estimat Glomerular Filtration Rate 41mL/min (>59) Glucose Level 125mg/dL (60-99) Lactic Acid Level 1.4mmol/L (0.4-2.0) Calcium Level 8.9mg/dL (8.5-10.1) Total Creatine Kinase 42U/L (21-232) Pro-B-Type Natriuretic Peptide 443.0pg/mL (0-86) Discharge Medications Discharge Medications Cephalexin (Cephalexin) 500 Mg Capsule 500 MG PO QID Prescribed by: TC ROBERTSON MD Gabapentin (Gabapentin) 600 Mg Tablet 600 MG PO BID (Reported) Lisinopril (Lisinopril) 10 Mg Tablet 10 MG PO DAILY (Reported) Sertraline HCl (Sertraline) 100 Mg Tablet 100 MG PO DAILY (Reported) As needed oxyCODONE (oxyCODONE) 10 Mg Tablet 20 MG PO Q4H PRN PRN For Pain (Reported) Additional med instructions You should complete 7 more days of antibiotics with Keflex 4 times per day. A printed prescription is given which you should fill this weekend. Followup Plan Follow-up plan You have been advised that you are leaving AGAINST MEDICAL ADVICE. We recommend close follow-up with your primary care provider. Patient Instructions You have been advised that sure kidney function is worsened. We recommend that she stay in the hospital to have this monitored, but if you are leaving you must check in with your primary care provider on Thursday morning to have a repeat blood tests. You shouldnot take lisinopril for several days until this is rechecked. Follow-up Provider: Supa Alegria DO Follow-up with PCP in: Other (call Dr. Alegria's office on Thursday for posthospitalization follow-up) Time spent 35 minutes including counseling patient regarding risks of AMA discharge. copies to: Supa Alegria Jeffrey W MD April 18, 2017 13:18
== END 2017-04-18 14:23 | disposition left against medical advice (07) | DRG 602 ==
LOC: SED 14:51 → OSC 16:22 → SOU 04-17 13:45 → OSC 04-17 13:47 → PCC 04-17 17:08
PROVIDERS: ADMIT Hospitalist; ATTEND Hospitalist
PROC: 4A033R1 Measurement of Arterial Saturation, Peripheral, Percutaneous Approach (ICD-10-PCS; principal; 2017-04-17)
DX: L03.116 Cellulitis of left lower limb (principal); J96.22 Acute and chronic respiratory failure with hypercapnia; Z68.45 Body mass index [BMI] 70 or greater, adult; F11.20 Opioid dependence, uncomplicated; N04.1 Nephrotic syndrome with focal and segmental glomerular lesions; N17.9 Acute kidney failure, unspecified; E66.01 Morbid (severe) obesity due to excess calories; R60.0 Localized edema; M79.641 Pain in right hand; E79.0 Hyperuricemia without signs of inflammatory arthritis and tophaceous disease; E11.9 Type 2 diabetes mellitus without complications; F32.9 Major depressive disorder, single episode, unspecified; G47.30 Sleep apnea, unspecified; Z91.19 Patient's noncompliance with other medical treatment and regimen; I12.9 Hypertensive chronic kidney disease with stage 1 through stage 4 chronic kidney disease, or unspecified chronic kidney disease; N18.9 Chronic kidney disease, unspecified; E88.81 Metabolic syndrome and other insulin resistance

== ENCOUNTER 2017-04-22 11:37 | Emergency (ER) | payer MEDICARE ==
[~2017-04-22] VITALS: Ht 180.3 cm; Wt 283.0 kg
[~2017-04-22 11:37] MED LIST changes: -ACET325T51 PO; -AMOX500T2 PO; -CALC625T83 PO; -CEPH-512 PO; +CEPH500C PO; +GABA600T2 PO; -HYG25 PO; -LOPE2CAP PO; -SACC250C PO; -SULF1TAB7 PO
[2017-04-22 11:44] VITALS: BP 149/90; PULSE 72; RESP 15; O2SAT 97
[2017-04-22 12:21] LABS: BASOPHILS % (AUTO) 0.1 % (0-3); EOSINOPHILS % (AUTO) 1.2 % (0-5); MONOCYTES % (AUTO) 7.6 % (4-12); Mean Corpuscular Hemoglobin 26.1 pg (27.0-35.0); Mean Corpuscular Volume 84.9 fL (81-100); NEUTROPHILS % (AUTO) 72.7 % (40-74); Platelet Count 252 bil/L (150-400)
--- NOTE | 2017-04-22 13:41 | ED.REPORT ---
HPI-General Illness Date of Service April 22, 2017 ED Provider: Aleksander Villalta DO The patient is a 42 year old male with history of recurrent RLE cellulitis, severe lymphedema, morbid obesity, hypertension, chronic pain with narcotic dependence, obstructive sleep apnea on CPAP, fibromyalgia, arthritis, depression , anxiety, venous insufficiency, nephrotic syndrome, and diabetes mellitus type II, who presents to the emergency department complaining of worsening right leg cellulitis. He complains of pain to his right lower extremity. The patient was admitted here on 04/15 for cellulitis but left AMA due to a family emergency on . He was sent home with 7 more days of antibiotics. He went out of town for a few days and left the antibiotics at home. He returned yesterday and restarted the antibiotics. He is concerned that the infection is not going away. He is also concerned because his urine has seemed to be darker over the last few days. He denies fever, chills, abdominal pain or vomiting. Nursing Notes Stated Complaint: KIDNEY AND RIGHT LEG PAIN Chief Complaint: General Complaint Allergies: Coded Allergies: linezolid (Verified Allergy, Severe, Hives, rash, itching, 04/22/17) levofloxacin (Verified Allergy, Unknown, 02/12/17) vancomycin (Verified Adverse Reaction, Intermediate, "Kidneys Shut Down", 02/12/17) Scheduled Cephalexin (Cephalexin) 500 Mg Capsule 500 MG PO QID Gabapentin (Gabapentin) 600 Mg Tablet 600 MG PO BID Lisinopril (Lisinopril) 10 Mg Tablet 10 MG PO DAILY Sertraline HCl (Sertraline) 100 Mg Tablet 100 MG PO DAILY Scheduled PRN oxyCODONE (oxyCODONE) 10 Mg Tablet 20 MG PO Q4H PRN PRN For Pain General Time Seen by MD: 13:23 Chief Complaint Other (RLE cellulitis) Hx Obtained From: Patient Arrived By: Wheelchair Sudden in Onset?: No Onset Occurred: More than a week ago... Symptom Duration: Since onset Location: : Leg right Quality: Painful Severity: Current: Moderate Severity: Maximum: Moderate Recent Healthcare: Recent doctor visit, Recent hospitalization Similar Sx Previous: Yes Past Medical History Past Medical History Notes: Patient with multiple admissions for cellulitis Past Medical History 1. Recurrent cellulitis right lower extremity, also hx of abdominal cellulitis 2. Severe lymphedema of right lower extremity greater than left. 3. Severe Morbid obesity with BMI of 80.9 4. Hypertension. 5. Chronic pain with narcotic dependence. 6. Seasonal allergies. 7. Obstructive sleep apnea. CPAP intolerant. 8. Fibromyalgia. 9. Arthritis 10. Depression/Anxiety 11. Venous insufficiency of the lower extremities No hx of MRSA Past Surgical History Hernia repair Reports: Cholecystectomy Family History Diabetes Rheumatoid arthritis Hypertension Cancer No history of TB Smoking History Never Smoker Social History Uses mobility scooter Alcohol Use: Denies alcohol use Drug Use: Denies drug use Other Social History: , Local resident Ambulatory Status Independent Review of Systems +dark urine Full Review of Systems Constitutional: Denies: Chills, Fever GI: Denies: Abdominal pain, Nausea, Vomiting Musculoskeletal: Reports: Extremity pain, Extremity swelling Skin: Reports Rash Complete sys rev & neg: except as marked. Physical Exam Vital Signs Vital Signs Date Time Temp Pulse Resp B/P Pulse Ox O2 Delivery O2 Flow Rate FiO2 04/22/17 11:44 36.4 72 15 149/90 97 Initial VS: Reviewed Head / Eyes: Atraumatic, Normocephalic, PERRL ENT: Mucous membranes moist, Conjunctiva normal, No scleral icterus Neck: Supple, Non-tender, Full range of motion Respiratory: Breath sounds normal, Clear to auscultation, No respiratory distress Cardiovascular: Regular rate & rhythm, Heart sounds normal, Intact distal pulses Abdomen / GI: Soft, No distention Extremities: Vascular intact, Neuro intact Skin: Warm, Dry, No cyanosis Neurologic: Alert, Oriented, Nonfocal Psychiatric: Mood/affect normal, Behavior normal, Normal thought content General/Constitutional: Awake, Alert Appearance / Presentation: Positive: Obese, morbidly Lower Extremity / Pelvis / MS: Neurologic intact Bilateral lower extremity swelling, right greater than left. There is no warmth or erythema. He has mild tenderness to both lower extremities. Interpretation & Diagnostics PROCEDURE: US VENOUS LEG DUPLEX BILATERAL IMPRESSION: 1. No evidence of right lower extremity DVT. 2. Limited but negative evaluation of the left lower extremity for DVT. Dictated by: Itzel Rincon M.D. on 04/13/2017 at 19:28 Lab Results Interpretation Result Diagram: 04/22/17 1200 04/22/17 1200 Test 04/22/17 12:00 04/22/17 14:14 White Blood Count 7.3th/mm3 (3.8-10.1) Red Blood Count 4.25mil/mm3 (4.40-5.80) Hemoglobin 11.1g/dL (13.8-17.2) Hematocrit 36.1% (41.0-50.0) Mean Corpuscular Volume 84.9fL (81-100) Mean Corpuscular Hemoglobin 26.1pg (27.0-35.0) Mean Corpuscular Hemoglobin Concent 30.7% (32.0-37.0) Red Cell Distribution Width 15.3% (12.3-15.4) Platelet Count 252bil/L (150-400) Neutrophils (%) (Auto) 72.7% (40-74) Lymphocytes (%) (Auto) 18.1% (14-46) Monocytes (%) (Auto) 7.6% (4-12) Eosinophils (%) (Auto) 1.2% (0-5) Basophils (%) (Auto) 0.1% (0-3) Erythrocyte Sedimentation Rate 29mm/hr (0-15) Sodium Level 143mEq/L (134-144) Potassium Level 5.0mEq/L (3.5-5.2) Chloride Level 106mEq/L (97-108) Carbon Dioxide Level 26mmol/L (18-29) Blood Urea Nitrogen 28mg/dL (6-24) Creatinine 1.35mg/dL (0.76-1.27) Estimat Glomerular Filtration Rate 61mL/min (>59) Glucose Level 121mg/dL (60-99) Calcium Level 9.3mg/dL (8.5-10.1) Total Bilirubin 0.3mg/dL (0.0-1.2) Aspartate Amino Transf (AST/SGOT) 24U/L (0-50) Alanine Aminotransferase (ALT/SGPT) 9U/L (0-44) Alkaline Phosphatase 65U/L (25-150) Total Protein 8.0g/dL (6.4-8.4) Albumin 3.0g/dL (3.4-5.0) Urine Color Red (YELLOW) Urine Appearance Slightly cloudy Urine pH 7.0 (5.0-8.0) Urine Specific [place] 1.015 (1.003-1.035) Urine Protein 300mg/dL (NEG,TRACE) Urine Glucose (UA) Negativemg/dL (NEGATIVE) Urine Ketones Negativemg/dL (NEGATIVE) Urine Occult Blood Large (NEGATIVE) Urine Nitrite Negative (NEGATIVE) Urine Bilirubin Negative (NEGATIVE) Urine Urobilinogen Normalmg/dL (NORMAL) Urine Leukocyte Esterase Trace (NEGATIVE) Urine RBC >50/hpf (0-2) Urine WBC 6-10/hpf (0-5) Urine Epithelial Cells Occasional/hpf (NONE-MOD) Urine Crystals None seen (NONE SEEN) Urine Bacteria Few/hpf (NONE-FEW) Urine Hyaline Casts None/lpf (NONE) Urine Granular Casts None seen (NONE SEEN) Urine Waxy Casts None seen (NONE SEEN) Urine Red Blood Cell Casts None seen (NONE SEEN) Urine White Blood Cell Casts None seen (NONE SEEN) Urine Mucus None seen (None Seen) Urine Trichomonas None seen (NONE SEEN) Urine Yeast None (NONE SEEN) Urinalysis Comment None Urine Culture Reflexed Indicated Re-Eval/Medical Decision Source of Hx: Old records Time of Eval: 15:22 Re-Evaluation/Progress Note: The patient admits to always having blood in his urine. Discussed diagnosis and plan for discharge. All questions were addressed. Consultation : Consulted With: solid waste collection worker Call Returned at: 15:22 Note: ED social worker palliative care spoke with the patient and has scheduled him an appointment with a local counselor. Counseled Regarding: Diagnosis, Lab results, Need for follow-up, When/why to return to ED Discharge & Departure Primary Impression: Chronic cellulitis Disposition: Home Discharge Condition All VS Reviewed: Yes Condition: Stable Patient Instructions: Cellulitis (ED) Additional Instructions: Thank you for entrusting us with your care today. Your exam findings are reassuring. You do not have renal failure. It is important that you take the Keflex as prescribed. Followup with your regular doctor next week for re-evaluation. You have an appointment at [facility] on April 30 at 10:00 AM. Please arrive early for check in. Here is the contact information: [phone], [place] at [facility]. Return to the emergency department for any new or concerning symptoms. Referrals: Michael Walton DO (PCP) Scribe Attestation Portions of this note were transcribed by Sally Lama. I, Dr. Villalta personally performed the history, physical exam and medical decision-making; I reviewed and confirmed the accuracy of the information in the transcribed note. Signed by: Geoff Doll, 04/22/2017 at 1530. copies to: Michael Walton Timothy S DO April 22, 2017 13:41 Sally Lama April 22, 2017 13:48
[2017-04-22 14:29] LABS: APPEARANCE,URINE SLIGHTLY CLOUDY (CLEAR,HAZY); COLOR,URINE RED (YELLOW); OCCULT BLOOD,URINE LARGE (NEGATIVE)
[2017-04-22 14:31] LABS: UROBILINOGEN,URINE NORMAL (NORMAL)
== END 2017-04-22 15:48 | disposition home or self-care (01) ==
LOC: SED 11:37
DX: L03.111 Cellulitis of right axilla (principal); I10 Essential (primary) hypertension; E66.01 Morbid (severe) obesity due to excess calories; G47.33 Obstructive sleep apnea (adult) (pediatric); M79.7 Fibromyalgia; G89.29 Other chronic pain; Z68.45 Body mass index [BMI] 70 or greater, adult; Z90.49 Acquired absence of other specified parts of digestive tract; Z88.1 Allergy status to other antibiotic agents; Z88.8 Allergy status to other drugs, medicaments and biological substances

== ENCOUNTER 2017-04-27 15:15 | Emergency (ER) | payer MEDICARE ==
[~2017-04-27] VITALS: Ht 180.3 cm; Wt 260.4 kg
[2017-04-27 15:17] VITALS: BP 142/72; PULSE 104; RESP 20; O2SAT 93
--- NOTE | 2017-04-27 15:29 | ED.REPORT ---
HPI-General Illness Date of Service Apr 27, 2017 ED Provider: Aleksander Villalta DO 42 y/o male with a hx of HTN and cellulitis presents to the ED complaining of erythema and pain on palpation in the right lower abdomen, onset yesterday.The pt states his abdomen has been sore for a few days but it worsened yesterday. Associated sx include fatigue.The pt had a recent hernia mesh repair. Denies vomiting, dehydration and decrease in appetite. Patient is requesting to go home and not be admitted today. Nursing Notes Stated Complaint: PAIN IN STOMACH Chief Complaint: Skin Rash/Abscess Nursing Notes Reviewed: Yes Allergies: Coded Allergies: linezolid (Verified Allergy, Severe, Hives, rash, itching, 04/22/17) levofloxacin (Verified Allergy, Unknown, 02/12/17) vancomycin (Verified Adverse Reaction, Intermediate, "Kidneys Shut Down", 02/12/17) Scheduled Cephalexin (Cephalexin) 500 Mg Capsule 500 MG PO QID Clindamycin (Clindamycin) 300 Mg Capsule 300 MG PO QID Gabapentin (Gabapentin) 600 Mg Tablet 600 MG PO BID Lisinopril (Lisinopril) 10 Mg Tablet 10 MG PO DAILY Sertraline HCl (Sertraline) 100 Mg Tablet 100 MG PO DAILY Scheduled PRN oxyCODONE (oxyCODONE) 10 Mg Tablet 20 MG PO Q4H PRN PRN For Pain General Time Seen by MD: 15:28 Chief Complaint Abdominal pain (on palpation) Hx Obtained From: Patient Arrived By: Wheelchair (motorized) Sudden in Onset?: Yes Onset Occurred: Yesterday Symptom Duration: Since onset Location: : Abdomen Quality: Painful Radiation: : Does not radiate Severity: Current: Severe Severity: Maximum: Severe Recent Healthcare: Recent doctor visit Similar Sx Previous: No Past Medical History Past Medical History Notes: Patient with multiple admissions for cellulitis Past Medical History 1. Recurrent cellulitis right lower extremity, also hx of abdominal cellulitis 2. Severe lymphedema of right lower extremity greater than left. 3. Severe Morbid obesity with BMI of 80.9 4. Hypertension. 5. Chronic pain with narcotic dependence. 6. Seasonal allergies. 7. Obstructive sleep apnea. CPAP intolerant. 8. Fibromyalgia. 9. Arthritis 10. Depression/Anxiety 11. Venous insufficiency of the lower extremities No hx of MRSA Past Surgical History Hernia repair Reports: Cholecystectomy Family History Diabetes Rheumatoid arthritis Hypertension Cancer No history of TB Smoking History Never Smoker Social History Uses mobility scooter Alcohol Use: Denies alcohol use Drug Use: Denies drug use Other Social History: , Local resident Ambulatory Status Wheelchair (Motorized) Review of Systems Reports: erythema on the lower right abdomen Denies: change in appetite Denies: dehydration Full Review of Systems Constitutional: Reports: Fatigue GI: Reports: Abdominal pain (on palpation), Denies: Vomiting Complete sys rev & neg: except as marked. Physical Exam Vital Signs Vital Signs Date Time Temp Pulse Resp B/P Pulse Ox O2 Delivery O2 Flow Rate FiO2 04/27/17 17:20 36.8 89 17 135/81 95 Room Air 04/27/17 15:17 36.9 104 20 142/72 93 Room Air Initial VS: Reviewed Head / Eyes: Atraumatic, Normocephalic Neck: Non-tender, Full range of motion Respiratory: Breath sounds normal, No respiratory distress Cardiovascular: Regular rate & rhythm, Heart sounds normal Abdomen / GI: Soft, Non-tender Neurologic: Alert, Oriented, Nonfocal Appearance / Presentation: Positive: Obese, morbidly Abdomen: Atraumatic, Soft, No guarding, No rebound Tenderness/Guarding/Rebound: Positive: Tender RLQ... (Severe) No sign of peritonitis. Upper Extremities Upper Extremity / MS: Atraumatic, Full range of motion, Neurologic intact, Vascular intact Lower Extremity / Pelvis / MS: Atraumatic, Full range of motion, Neurologic intact, Vascular intact No crepitus Skin: Atraumatic, Warm, Dry No discrete abscess. 35% of lower abdomen erythematous and warm. Lymphangitis going up the right side of the abdomen. No induration. Interpretation & Diagnostics Lab Results Interpretation Result Diagram: 04/27/17 1620 04/27/17 1620 Test 04/27/17 16:20 White Blood Count 8.4th/mm3 (3.8-10.1) Red Blood Count 4.44mil/mm3 (4.40-5.80) Hemoglobin 11.7g/dL (13.8-17.2) Hematocrit 37.9% (41.0-50.0) Mean Corpuscular Volume 85.4fL (81-100) Mean Corpuscular Hemoglobin 26.4pg (27.0-35.0) Mean Corpuscular Hemoglobin Concent 30.9% (32.0-37.0) Red Cell Distribution Width 15.1% (12.3-15.4) Platelet Count 252bil/L (150-400) Neutrophils (%) (Auto) 71.7% (40-74) Lymphocytes (%) (Auto) 15.5% (14-46) Monocytes (%) (Auto) 10.8% (4-12) Eosinophils (%) (Auto) 1.4% (0-5) Basophils (%) (Auto) 0.2% (0-3) Erythrocyte Sedimentation Rate 73mm/hr (0-15) Sodium Level 134mEq/L (134-144) Potassium Level 4.5mEq/L (3.5-5.2) Chloride Level 100mEq/L (97-108) Carbon Dioxide Level 23mmol/L (18-29) Blood Urea Nitrogen 30mg/dL (6-24) Creatinine 1.90mg/dL (0.76-1.27) Estimat Glomerular Filtration Rate 41mL/min (>59) Glucose Level 123mg/dL (60-99) Lactic Acid Level 1.1mmol/L (0.4-2.0) Calcium Level 9.2mg/dL (8.5-10.1) Total Bilirubin 0.3mg/dL (0.0-1.2) Aspartate Amino Transf (AST/SGOT) 19U/L (0-50) Alanine Aminotransferase (ALT/SGPT) 13U/L (0-44) Alkaline Phosphatase 68U/L (25-150) Total Protein 8.5g/dL (6.4-8.4) Albumin 3.0g/dL (3.4-5.0) Re-Eval/Medical Decision Med Decision/Clinical Course Patient presents with lower abdominal wall cellulitis, this looks like it superficial, there is no focal fluctuance or deep induration to suggest deep space abscess. He does have some lymphangitis going up the right side of the abdomen. He is initially mildly tachycardic with otherwise normal vital signs. He has a normal white blood cell count and lactic acid. His sedimentation rate is elevated which is likely suggestive of a cellulitis. We will start him on clindamycin. He was initially given a dose of Bactrim however given his renal insufficiency is ultimately thought that clindamycin would be a better choice. His creatinine is mildly elevated compared to prior but well within a range which seems normal for him. He is requesting to go home which seems reasonable given that he is not prominently septic and he does not have rapidly progressive cellulitis or evidence of deep space infection on exam. Recommend close clinical follow-up and return precautions. Time of Eval: 16:59 Patient Status: Condition improved Re-Evaluation/Progress Note: Rechecekd pt. Rash not progressing. Discussed lab results, diagnosis and plan to discharge. The pt understands and agrees with the plan. Alll questions addressed. Counseled Regarding: Diagnosis, Lab results, Need for follow-up, When/why to return to ED Discharge & Departure Primary Impression: Cellulitis Disposition: Home Discharge Condition All VS Reviewed: Yes Patient Instructions: Cellulitis (ED) Additional Instructions: You have cellulitis to your lower abdomen. Begin taking clindamycin. Follow up with your regular doctor in the next 2 days for repeat evaluation of both your cellulitis and your kidney function. Return to the ER if you develop rapidly progressive redness or swelling, involvement of your testicles or scrotum, high fever, lethargy, or other concerns. Referrals: Michael Walton DO (PCP) Scribe Attestation Portions of this note were transcribed by Claudia Tucker. I, , personally performed the history, physical exam and medical decision-making;I reviewed and confirmed the accuracy of the information in the transcribed note. Signed by Geoff Arrieta. 04/27/17 17:14 copies to: Michael Walton Timothy S DO Apr 27, 2017 15:29 Claudia Tucker Apr 27, 2017 15:37
[2017-04-27] MEDS ORDERED: Trimethoprim-Sulfa 160 mg-800 mg Tablet PO ONE (15:35)
[2017-04-27 16:34] LABS: BASOPHILS % (AUTO) 0.2 % (0-3); EOSINOPHILS % (AUTO) 1.4 % (0-5); MONOCYTES % (AUTO) 10.8 % (4-12); Mean Corpuscular Hemoglobin 26.4 pg (27.0-35.0); Mean Corpuscular Volume 85.4 fL (81-100); NEUTROPHILS % (AUTO) 71.7 % (40-74); Platelet Count 252 bil/L (150-400)
[2017-04-27 16:58] LABS: ERYTHROCYTE SEDIMENTATION RATE 73 mm/hr (0-15)
[2017-04-27] MEDS ORDERED: CLIN-78 PO (17:03)
[2017-04-27 17:20] VITALS: BP 135/81; PULSE 89; RESP 17; O2SAT 95
== END 2017-04-27 17:15 | disposition home or self-care (01) ==
LOC: SED 15:15
DX: L03.311 Cellulitis of abdominal wall (principal); R53.83 Other fatigue; R10.31 Right lower quadrant pain; F32.9 Major depressive disorder, single episode, unspecified; F41.9 Anxiety disorder, unspecified; I10 Essential (primary) hypertension; Z88.1 Allergy status to other antibiotic agents

== ENCOUNTER 2017-05-06 17:31 | Inpatient (IN) | payer MEDICARE ==
[~2017-05-06] VITALS: Ht 180.3 cm; Wt 292.6 kg
[~2017-05-06 17:31] MED LIST changes: +CLIN-78 PO
[2017-05-06 17:34] VITALS: BP 193/101; PULSE 100; RESP 22; O2SAT 96
--- NOTE | 2017-05-06 18:50 | ED.REPORT ---
HPI-Extremity Problem Lower Date of Service May 06, 2017 ED Provider: Dr. Albin Fallon M.D. The patient is a 42 year old male with a medical history including recurrent cellulitis, lymphedema lower extremities (R>L), morbid obesity, hypertension, and chronic pain who presents to the ED with bilateral leg pain onset 1630 today. Associated symptoms include chills and bilateral leg swelling and redness. The patient has developed a fever of 37.8 in the ED. He denies other symptoms. The patient has had similar symptoms in the past associated with cellulitis. He was recently seen in the ED on 04/27/17 and was placed on antibiotics for abdominal wall cellulitis, which he finished four days ago. Nursing Notes Stated Complaint: LEGS HURT Chief Complaint: General Complaint Nursing Notes Reviewed: Yes Allergies: Coded Allergies: linezolid (Verified Allergy, Severe, Hives, rash, itching, 05/06/17) levofloxacin (Verified Allergy, Unknown, 05/06/17) vancomycin (Verified Adverse Reaction, Intermediate, "Kidneys Shut Down", 05/06/17) Scheduled Lisinopril (Lisinopril) 10 Mg Tablet 10 MG PO DAILY Sertraline HCl (Sertraline) 100 Mg Tablet 150 MG PO DAILY Scheduled PRN Gabapentin (Gabapentin) 600 Mg Tablet 600 MG PO BID PRN PRN For Pain oxyCODONE (oxyCODONE) 10 Mg Tablet 20 MG PO Q4H PRN PRN For Pain General Time Seen by MD: 18:50 Chief Complaint Other (Bilateral Leg Pain) Hx Obtained From: Patient Arrived By: Walk-in Onset Occurred: 1 - 4 hours ago Symptom Duration: Since onset Location: : Leg left: Leg right Quality: Painful Severity: Current: Moderate Severity: Maximum: Moderate Pertinent Negative: Relieved by nothing Immunizations: Unknown Recent Healthcare: Recent doctor visit Similar Sx Previous: Yes Past Medical History Past Medical History Notes: Patient with multiple admissions for cellulitis Past Medical History 1. Recurrent cellulitis right lower extremity, also hx of abdominal cellulitis 2. Severe lymphedema of right lower extremity greater than left. 3. Severe Morbid obesity with BMI of 80.9 4. Hypertension. 5. Chronic pain with narcotic dependence. 6. Seasonal allergies. 7. Obstructive sleep apnea. CPAP intolerant. 8. Fibromyalgia. 9. Arthritis 10. Depression/Anxiety 11. Venous insufficiency of the lower extremities No hx of MRSA Past Surgical History Hernia repair Reports: Cholecystectomy Family History Diabetes Rheumatoid arthritis Hypertension Cancer No history of TB Smoking History Never Smoker Social History Uses mobility scooter Alcohol Use: Denies alcohol use Drug Use: Denies drug use Other Social History: , Local resident Ambulatory Status Wheelchair Review of Systems Review of Systems Note: + Bilateral leg redness Constitutional: Reports: Chills Musculoskeletal: Reports: Extremity pain (Bilateral legs), Extremity swelling ( Bilateral legs) Complete sys rev & neg: except as marked. Respiratory: Denies: Non-productive cough, Shortness of breath GI: Denies: Diarrhea, Vomiting Physical Exam Initial Vital Signs Vital Signs (First) Date Time Temp Pulse Resp B/P Pulse Ox O2 Delivery O2 Flow Rate FiO2 05/06/17 17:34 36.4 100 22 193/101 96 Room Air Initial VS: Reviewed Head / Eyes: Atraumatic, Normocephalic ENT: Conjunctiva normal, No scleral icterus Neck: Supple, Full range of motion Respiratory: Breath sounds normal, Clear to auscultation, No respiratory distress Cardiovascular: Regular rate & rhythm, Heart sounds normal Neurologic: Alert, Oriented, Nonfocal Psychiatric: Mood/affect normal, Behavior normal, Normal thought content Lower Extremity / Pelvis / MS: No deformity Lower Ext Brief Normals: Leg / calf R exam normal Circumferential dense erythema and exquisite tenderness 10cm below left knee to the ankle General/Constitutional: Awake, Alert, No acute distress Appearance / Presentation: Positive: Obese, morbidly Abdomen: Soft, Non-tender Pannus appears normal Interpretation & Diagnostics Lab Results Interpretation Result Diagram: 05/06/17 1950 05/06/17 1950 Test 05/06/17 19:50 05/06/17 20:38 White Blood Count 16.2th/mm3 (3.8-10.1) Red Blood Count 4.28mil/mm3 (4.40-5.80) Hemoglobin 11.3g/dL (13.8-17.2) Hematocrit 36.5% (41.0-50.0) Mean Corpuscular Volume 85.3fL (81-100) Mean Corpuscular Hemoglobin 26.4pg (27.0-35.0) Mean Corpuscular Hemoglobin Concent 31.0% (32.0-37.0) Red Cell Distribution Width 14.9% (12.3-15.4) Platelet Count 280bil/L (150-400) Neutrophils (%) (Auto) 88.4% (40-74) Lymphocytes (%) (Auto) 4.0% (14-46) Monocytes (%) (Auto) 6.5% (4-12) Eosinophils (%) (Auto) 0.6% (0-5) Basophils (%) (Auto) 0.1% (0-3) Sodium Level 135mEq/L (134-144) Potassium Level 4.7mEq/L (3.5-5.2) Chloride Level 100mEq/L (97-108) Carbon Dioxide Level 23mmol/L (18-29) Blood Urea Nitrogen 21mg/dL (6-24) Creatinine 1.60mg/dL (0.76-1.27) Estimat Glomerular Filtration Rate 50mL/min (>59) Glucose Level 115mg/dL (60-99) Lactic Acid Level 2.6mmol/L (0.4-2.0) Calcium Level 9.0mg/dL (8.5-10.1) Total Bilirubin 0.3mg/dL (0.0-1.2) Aspartate Amino Transf (AST/SGOT) 31U/L (0-50) Alanine Aminotransferase (ALT/SGPT) 23U/L (0-44) Alkaline Phosphatase 73U/L (25-150) Total Protein 8.3g/dL (6.4-8.4) Albumin 3.2g/dL (3.4-5.0) Procalcitonin 0.16ng/mL (0.00-0.08) Urine Color Bloody (YELLOW) Urine Appearance Cloudy (CLEAR,HAZY) Urine pH 5.0 (5.0-8.0) Urine Specific [place] 1.020 (1.003-1.035) Urine Protein 300mg/dL (NEG,TRACE) Urine Glucose (UA) Negativemg/dL (NEGATIVE) Urine Ketones Negativemg/dL (NEGATIVE) Urine Occult Blood Large (NEGATIVE) Urine Nitrite Positive (NEGATIVE) Urine Bilirubin Negative (NEGATIVE) Urine Urobilinogen Normalmg/dL (NORMAL) Urine Leukocyte Esterase Negative (NEGATIVE) Urine RBC >50/hpf (0-2) Urine WBC 6-10/hpf (0-5) Urine Epithelial Cells Moderate/hpf (NONE-MOD) Urine Crystals None seen (NONE SEEN) Urine Bacteria Few/hpf (NONE-FEW) Urine Hyaline Casts None/lpf (NONE) Urine Granular Casts None seen (NONE SEEN) Urine Waxy Casts None seen (NONE SEEN) Urine Red Blood Cell Casts None seen (NONE SEEN) Urine White Blood Cell Casts None seen (NONE SEEN) Urine Mucus None seen (None Seen) Urine Trichomonas None seen (NONE SEEN) Urine Yeast Many (NONE SEEN) Urinalysis Comment None Urine Culture Reflexed Indicated X-Ray Chest Interpretation Chest Xray Interpretation: IMPRESSION: No acute cardiopulmonary disease. Right basilar scars and/or atelectasis. Dictated by: Kayleen Romero M.D. on 05/06/2017 at 19:17 View: Portable, 1 view Interpretation / Wet Read by: Interpret - Radiologist Re-Eval/Medical Decision Re-Evaluation/Progress : Time of Eval: 19:00 Patient Status: Condition improved Re-Evaluation/Progress Note: Discussed with patient physical exam findings, diagnosis, and plan for admit after labs and x-ray. Patient agrees with plan for care and all questions were addressed. Consultation : Referral / Consult Name: Neptali Thakur MD Consulted With: Hospitalist Call Returned at: 20:44 Conservation Biology Professor: Agrees with eval, Agrees with plan, Accepts admit Counseled Regarding: Diagnosis, Need for admission Discharge & Departure Impression: Primary Impression: Sepsis Additional Impression: Cellulitis Site of cellulitis: extremity Site of cellulitis of extremity: lower extremity Laterality: left Qualified Code: L03.116 - Cellulitis of left lower limb Disposition: ADMITTED TO HOSPITAL Discharge Condition All VS Reviewed: Yes Condition: Improved Referrals: Michael Walton DO (PCP) Geoff Attestation Portions of this note were transcribed by Lakisha Vides. I, Dr. Fallon, personally performed the history, physical exam, and medical decision-making; I reviewed and confirmed the accuracy of the information in the transcribed note. Signed by: Geoff Arellano, 05/06/2017, 21:50 copies to: Michael Walton Kirk H MD May 06, 2017 18:50 LAKISHA VIDES May 06, 2017 18:57
[2017-05-06] MEDS ORDERED: 0.9% Sodium Chloride 1,000 ML IV ONE (18:54)
[2017-05-06] MEDS ORDERED: HYDROmorphone 1 mg/mL Inj IVPUSH PRN (18:55)
[2017-05-06] MEDS ORDERED: Clindamycin Inj 900 MG in IV Premix 1 EACH IV ONE (18:55)
[2017-05-06] MEDS ORDERED: Meropenem Inj 1,000 MG in 0.9% Sodium Chloride 100 ML IV ONE (18:55)
--- NOTE | 2017-05-06 19:21 | DRSVH ---
PROCEDURE: X-RAY CHEST ONE VIEW, PORTABLE ([id number]) INDICATIONS: sepsis TECHNIQUE: One view of the chest was acquired. COMPARISON: [facility], CR, XR CHEST 1VW (PORTABLE), 11/05/2016, 8:56. [facility], CR, XR CHEST 1VW (PORTABLE), 02/12/2017, 15:16. FINDINGS: Surgical changes and devices: None. Lungs and pleura: There is chronic right hemidiaphragm elevation. Linear density in the right lung b ase is likely atelectasis and/or scarring. No pleural effusions or pneumothorax. Mediastinum: Mediastinal contours appear normal. Heart size is normal. Bones and chest wall: No suspicious bony lesions. Overlying soft tissues appear unremarkable. IMPRESSION: No acute cardiopulmonary disease. Right basilar scars and/or atelectasis. Dictated by: Kayleen Romero M.D. on 05/06/2017 at 19:17 Approved by: Kayleen Romero M.D. on 05/06/2017 at 19:19
[2017-05-06 20:00] LABS: BASOPHILS % (AUTO) 0.1 % (0-3); EOSINOPHILS % (AUTO) 0.6 % (0-5); MONOCYTES % (AUTO) 6.5 % (4-12); Mean Corpuscular Hemoglobin 26.4 pg (27.0-35.0); Mean Corpuscular Volume 85.3 fL (81-100); NEUTROPHILS % (AUTO) 88.4 % (40-74); Platelet Count 280 bil/L (150-400)
[2017-05-06 20:58] LABS: APPEARANCE,URINE CLOUDY (CLEAR,HAZY); COLOR,URINE BLOODY (YELLOW); OCCULT BLOOD,URINE LARGE (NEGATIVE); UROBILINOGEN,URINE NORMAL (NORMAL); YEAST,URINE MANY (NONE SEEN)
[2017-05-06] MEDS ORDERED: Ondansetron 2 mg/mL 2 mL Inj IVPUSH PRN (21:15)
[2017-05-06] MEDS ORDERED: Polyethylene Glycol (PEG) 17 Gm Powder PO PRN (21:15)
[2017-05-06] MEDS ORDERED: Alum-Mag Hydrox-Simeth 30 mL Suspension PO PRN (21:15)
[2017-05-06 21:36] VITALS: BP 136/64
[2017-05-06 21:49] VITALS: BP 136/64; PULSE 100; RESP 22; O2SAT 96
--- NOTE | 2017-05-06 21:50 | PCM.HPMED ---
Subjective Date of Service May 06, 2017 Primary Provider: Admitting Physician: Neptali Thakur MD Primary Care Physician: Michael Walton DO Attending Physician: Neptali Thakur MD Chief Complaint: Lower extremity pain History of Present Illness: Patient is a pleasant 42-year-old woman who presented to the emergency department bilateral lower extremity pain. He has a history of chronic cellulitis, previous hospitalizations for such requiring IV antibiotics, he has a substantial medical history significant for severe morbid obesity with a BMI greater than 80, hypertension, chronic pain with narcotic dependence, ENEDINA CPAP intolerant, fibromyalgia, anxiety depression, and severe lymphedema. He states the pain has been getting worse over the course of the day, he says he has had some breaks in the skin to his posterior left calf with oozing and bleeding for several days stating that it would dry to his sweats and when he would take off his pants it would rip off the dried blood which was very painful but would also reopen the wound. Around 1630 today he said he began to feel cold and have chills, and cold sweats followed. He has recurring pain to his lower abdomen where he describes he received hernia mesh, was seen in the emergency department previously for this pain but not admitted. On presentation his vitals were 36.4C, heart rate 100, respiratory rate 22, blood pressure 193/101, 96% on room air. Oral temperature 1 hour later was 37.8. WBC 16.2, hemoglobin 11.3, 88.4% neuts, Lactic acid 2.6 Blood glucose 1:15 Creatinine 1.6 (appears near his baseline) UA: Protein 300, negative glucose, negative ketones, large occult blood, positive nitrite, negative leukocyte esterase, greater than 50 RBC, 6-10 WBC, Based on his presentation, elevated lactic acid, heart rate respiratory rate, and history of cellulitis progressing to sepsis patient was admitted for IV antibiotics, fluids, and further monitoring. Review of Systems: A comprehensive review of systems was conducted with the patient and found to be negative except as above in the history of presenting illness. Allergies Coded Allergies: linezolid (Verified Allergy, Severe, Hives, rash, itching, 05/06/17) levofloxacin (Verified Allergy, Unknown, 05/06/17) vancomycin (Verified Adverse Reaction, Intermediate, "Kidneys Shut Down", 6/14/17) Home Medications Scheduled Lisinopril (Lisinopril) 10 Mg Tablet 10 MG PO DAILY Sertraline HCl (Sertraline) 100 Mg Tablet 150 MG PO DAILY Scheduled PRN Gabapentin (Gabapentin) 600 Mg Tablet 600 MG PO BID PRN PRN For Pain oxyCODONE (oxyCODONE) 10 Mg Tablet 20 MG PO Q4H PRN PRN For Pain PMH 1. Recurrent cellulitis right lower extremity, also hx of abdominal cellulitis 2. Severe lymphedema of right lower extremity greater than left. 3. Severe Morbid obesity with BMI of 80.9 4. Hypertension. 5. Chronic pain with narcotic dependence. 6. Seasonal allergies. 7. Obstructive sleep apnea. CPAP intolerant. 8. Fibromyalgia. 9. Arthritis 10. Depression/Anxiety 11. Venous insufficiency of the lower extremities 12. Nephrotic syndrome secondary to obesity with related focal segmental sclerosis 13. Hypertensive nephrosclerosis 14. Metabolic syndrome 15. Hyperuricemia 16. Venous insufficiency 17. Erectile dysfunction . Surgical History Hernia repair Cholecystectomy Family History Father - diabetes Mother - Hypertension, diabetes, stroke Social History Hx Alcohol Use: No Hx Substance Use: No Hx Tobacco Use: No Smoking Status: Never Smoker Living Arrangement: with Family Exam Vital Signs Vital Sign - Last Date Time Temp Pulse Resp B/P Pulse Ox O2 Delivery O2 Flow Rate FiO2 05/06/17 18:42 37.8 05/06/17 17:34 100 22 193/101 96 Room Air Exam General: Laying in bed, no apparent distress. Severely obese HEENT: Normocephalic, atraumatic, EOMI grossly, pupils fixed 2 mm, nasal cannula in place, mucous membranes moist, neck is supple without lymphadenopathy , conjunctivae are pink Cardiovascular: Tachycardic with regular rhythm, no clicks murmurs rubs, peripheral pulses 2/4 equal bilaterally, heart sounds are distant Pulmonary: Clear to auscultation bilaterally, no W/R/R. breath sounds are distant Abdominal: Very large, there is area of induration just inferior to umbilicus, it is tender, and warm mildly erythematous. No open lesions, no purulence, no weeping. Extremities: Bilaterally grossly edematous, there are open wounds to the posterior left calf, no foul smell, not grossly purulent, do not appreciate any crepitus, no red streaking. Left lower calf is more red and warm compared to right. Neuro: Neurologically grossly intact, strength is equal bilaterally upper extremities, there is decreased strength in bilateral lower extremities secondary to pain. MSK: Uses electric wheelchair to get around, states he is normally able to walk , so able to move his extremities on his own volition 5 out of 5 to upper extremities equal bilaterally. Lower extremity exam limited secondary to pain. Psych: Oriented to person place time and situation, appropriate affect. Lab and Diagnostics Result Diagram: 05/06/17 1950 05/06/17 1950 Microbiology Blood cultures 2 pending X-Rays, CTs and MRIs Chest x-ray performed 05/06/2017 IMPRESSION: No acute cardiopulmonary disease. Right basilar scars and/or atelectasis. Dictated by: Kayleen Romero M.D. on 05/06/2017 at 19:17 Assessment & Plan 42-year-old gentleman with substantial medical history significant for severe morbid obesity, metabolic syndrome, recurrent cellulitis, hypertensive nephrosclerosis, segmental sclerosis, ENEDINA, severe lymphedema, presents with worsening of recurring lower extremity cellulitis, and ulcers to posterior left calf. Vital signs lab work suggestive of sepsis. Acute sepsis, present on admission, treatment initiated Respiratory rate 22, heart rate 100, WBC 16.2, lactic acid 2.6 source identified as left lower extremity wounds and probable cellulitis Blood cultures 2 Antibiotic treatment as below Pro-calcitonin Urine culture Normal saline 100 mL per hour Left lower extremity stasis ulcer, present on admission, treatment initiated Recurrent, consistent with previous hospitalizations, no history of MRSA, however given risk factors of numerous antibiotics, and numerous hospitalizations, will cover for MRSA pending screening. Wound care consultation IV antibiotics, clindamycin 600 mg every 8 hours. IV meropenem 1 g given in the emergency department at 7 PM, based on [facility] abx guide, renal dosing is 1 g every 12 hours for GFR 50, will hold morning dose until patient is seen by infectious disease. Infectious disease consultation Acute leukocytosis, present on admission, treatment ongoing Likely secondary to both conditions, treatment as stated above Monitor repeat a.m. CBC Lactic acidosis, present on admission, evaluation and treatment ongoing Wilsey to be secondary to sepsis IV fluids as above Trend serum lactate every 4 hours until normal Elevated blood glucose, present on admission, stable Blood glucose 115 Previous hemoglobin A1c 6.6 on 02/12/2017 Diabetic constant carb diet Diabetes education Recheck A1c Chronic Hematuria, present on admission, stable Greater than 50 red blood cells per high-powered field Review of previous UAs shows this to be consistent. Will consider urology/nephrology consultation with any change in creatinine or new symptoms. Chronic Anxiety and depression, POA,stable, Continue home sertraline 150 mg daily Chronic pain and fibromyalgia, present on admission Continue home medication of oxycodone 20 mg every 4 hours Hold for somnolence, respiratory depression Continue home gabapentin 600 mg twice a day Chronic Hypertension, present on admission, uncontrolled 193/101 on presentation, most recent 136/64 with better pain control We will continue to monitor. Pain management oxycodone 20 mg every 4 hours, gabapentin as above Bowel regimen as needed DVT prophylaxis subcutaneous heparin every 8 hours Patient admitted under inpatient status with expected length of stay > 2 midnights for severity of present symptoms, complexities of treatment plan and risk for adverse events CODE STATUS: Full code Pain Evaluation: Adequate Pain Control GI Prophylaxis: Not indicated VTE Prophylaxis: Sub-Q Heparin (Unfractionated) Resuscitation Status: CPR: Attempt Resuscitation Attending Statement The patient was seen and examined together with Dr. Sullivan on 05/06 and I agree with the history, exam and plan as outlined in the note above. Cezar Gómez DO May 06, 2017 21:50 Neptali Thakur MD May 07, 2017 00:42
[2017-05-06 22:00] VITALS: BP 160/70; PULSE 122; RESP 21; O2SAT 89
[2017-05-06 22:10] VITALS: PULSE 125; O2SAT 94
[2017-05-06] MEDS: 0.9% Sodium Chloride 1,000 ML IV SCH (22:10)
--- NOTE | 2017-05-07 02:39 | NUR ---
Admission Pt arrived to unit at 2200 from the ED. Pt arrived on his personal motorized w/c/scooter Transferred to bed with 1 person. Pt is familiar with unit, very little reorientation needed. Pt is bedrest as he is in too much pain with LLE cellulitis to ambulate. Pt is FULL CODE. IV to left hand SL, asymptomatic, flushes well. IV fluids started. Pt rates pain 8/10, orders rec'd for PRN dilaudid, administered and had + effects. Using 2L o2 via NC due to ENEDINA, CRITICAL CARE CNS on, Pt on tele sinus tach. Pt on a striker bed with trapeze. Call light within reach, bed in low position.
[2017-05-07 04:45] VITALS: BP 144/80; PULSE 108; RESP 18; O2SAT 94
[2017-05-07 05:49] VITALS: PULSE 99
[2017-05-07] MEDS ORDERED: Clindamycin Inj 900 MG in IV Premix 1 EACH IV SCH (06:00)
[2017-05-07] MEDS: HYDROmorphone 1 mg/mL Inj IVPUSH PRN ×3 (06:06→15:02)
[2017-05-07 06:12] LABS: BASOPHILS % (AUTO) 0.1 % (0-3); EOSINOPHILS % (AUTO) 0.2 % (0-5); MONOCYTES % (AUTO) 6.6 % (4-12); Mean Corpuscular Hemoglobin 26.3 pg (27.0-35.0); Mean Corpuscular Volume 85.5 fL (81-100); NEUTROPHILS % (AUTO) 88.4 % (40-74); Platelet Count 257 bil/L (150-400)
[2017-05-07] MEDS: 0.9% Sodium Chloride 1,000 ML IV SCH (08:10)
[2017-05-07 10:32] VITALS: BP 145/83; PULSE 61; RESP 18; O2SAT 98
--- NOTE | 2017-05-07 12:16 | PCM.CHPMED ---
Subjective Date of Service: May 07, 2017 Provider requesting consult: Neptali Thakur MD Primary Physician: Admitting Physician: Neptali Thakur MD Primary Care Physician: Michael Walton DO Attending Physician: Neptali Thakur MD Chief Complaint: Chief Complaint: Fever, chills History of Present Illness: NEPHROLOGY CONSULTATION NOTE Patient is a 42 year old male who is well known at this facility. He has a history of recurrent cellulitis, nephrotic and nephritic syndrome, lymphedema, HTN, ENEDINA, arthritis, venous insufficiency, metabolic syndrome, and morbid obesity. He presented to [facility] on 05/06/17 after experiencing chills and rigors. Fever was also noted. He had seen an increase in the swelling, erythema, and tenderness in his left leg and recognized this as a worsening of his cellulitis. Patient has multiple prior hospitalizations with the same sort of presentation. Also discovered was an elevated creatinine of 1.6. On March 23, 2017, outpatient records indicate that the patient has a normal creatinine. 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 Chronic pain with opiate habituation Obstructive sleep apnea for which he is unable to use CPAP Diffuse osteoarthritis Fibromyalgia Surgical History Cholecystectomy Hernia repair Home Medications From [facility] 03/24/17: Buspirone 7.5 mg 2 times every day Gabapentin 600 mg 2 tablets three times daily Hydroxyzine HCl 25 mg 3 times every day PRN anxiety Lisinopril 10 mg 2 times daily Metformin 500 mg 2 times every day with morning and evening meals Methocarbamol 1000 mg 2 times every day Sertraline 150 daily Allergies: Coded Allergies: linezolid (Verified Allergy, Severe, Hives, rash, itching, 05/06/17) levofloxacin (Verified Allergy, Unknown, 05/06/17) vancomycin (Verified Adverse Reaction, Intermediate, "Kidneys Shut Down", 05/06/17) Social History Hx Alcohol Use: NoHx Substance Use: NoHx Tobacco Use: No Smoking Status: Never Smoker Living Arrangement: with Family Exam Vital Signs Vital Sign - Last Date Time Temp Pulse Resp B/P Pulse Ox O2 Delivery O2 Flow Rate FiO2 05/07/17 10:32 36.6 61 18 145/83 98 Nasal Cannula 2.00 Intake and Output 05/06/17 05/06/17 05/07/17 Cumulative From/Thru 15:00 23:00 07:00 05/06/17 17:34 - 05/07/17 05:51 Intake Total 1000 ml 800 ml 1800 ml Output Total 600 ml 600 ml Balance 1000 ml 200 ml 1200 ml Intake Oral 800 ml 800 ml IV Total 1000 ml 1000 ml Output Urine Total 600 ml 600 ml # Bowel Movements 0 0 General: Alert, Oriented X3, Cooperative, No Acute Distress Head: Normal Eyes: PERRLA, EOMI, Scleral Anicteric Chest & Lungs: Clear to auscultation & percussion (in the anterior hogan) Cardiovascular: Regular Rate/Rhythm, No Murmurs/Rubs/Gallops, Other (distant heart tones) Abdomen: Non-tender, Soft, Obese Genitourinary: Reddy Absent Extremities: Tenderness/Swelling Noted (LLE), Edema (lymphedema more notable in the RLE; severe pitting edema of the LLE) Skin: Wounds/Lacerations (posterior LLE), Redness (LLE) Neurological: Grossly Neurologically Intact, Cranial Nerves 2-12 Intact, Normal Speech Lab and Diagnostics Result Diagram: 05/07/17 0553 05/07/17 0553 Assessment & Plan Assessment Patient is a 42 year old male who is well known at this facility. He has a history of recurrent cellulitis, nephrotic and nephritic syndrome, lymphedema, HTN, ENEDINA, arthritis, venous insufficiency, metabolic syndrome, and morbid obesity. He presented to [facility] on 05/06/17 after experiencing chills and rigors. Nephrology service was consulted due to acute kidney injury. Hospital day #1. 1) Acute kidney injury. - Likely secondary to sepsis. - Creatinine continued to rise to 2.0 today. - Holding lisinopril. Switch to amlodipine 5 mg daily. - Avoid nephrotoxic agents - especially vancomycin. 2) Focal segmental glomerulosclerosis of obesity. - Not confirmed with renal biopsy as the patient's body habitus prevents us from being able to get a good sample. - Minimize insults to the kidney by avoiding nephrotoxic agents. - Continue to encourage bariatric surgery. 3) Hypertension. - Will hold lisinopril at this time. - For blood pressure management with use amlodipine 5 mg daily. 4) Lower extremity cellulitis. - Will defer to Dr. Eddy's expertise for treatment. Thank you for the consultation on this interesting patient. We will continue to follow along during the course of admission. Patient was seen and examined. Case discussed with a resident. Agreed with assessment and plan as above. -SYDNEY likely related to ATN, in the setting of sepsis. -Chronic glomerulonephritis/nephrotic syndrome. unknown etiology.DDx: IgA nephropathy, SLE, Obesity-induced FSGS, MPGN. GN serologies sent previously including ANCA, GBM, HIV, hepatitis panel, RPR. Those are negative. CONSTANZA and anti-colunga were positive. Plan: hold lisinopril for now, switch to amlodipine. Renally dose meds and avoid nephrotoxins. Repeat CONSTANZA, IF. Livia Hernandez MD Pg [phone] Problems: Pain Evaluation: Adequate Pain Control GI Prophylaxis: Not indicated VTE Prophylaxis: Sub-Q Heparin (Unfractionated) Resuscitation Status: CPR: Attempt Resuscitation Rubi Hester DO May 07, 2017 11:58 Damián Cabrera MD May 07, 2017 16:48
[2017-05-07 13:24] VITALS: BP 137/74; PULSE 79; RESP 18; O2SAT 94
--- NOTE | 2017-05-07 13:50 | NUR ---
NUTRITION ASSESSMENT: ASSESS: 42YOM admitted with acute kidney injury, likely related to sepsis, nephrology consulted; chronic cellulitis,lower extremiity ulcer-- wound care consulted. Diabetic education ordered, pt with h/o DM; diagnosis in 09/2016, education provided in September and today, pt refusing outpatient education reporting has DM and he is doing well following diet. Pt has been referred to outpatient counseling for bariatric surgery, reports no-show x 2 related to hospitalizations and report from that he is not a good candidate for surgery. PMHX: Chronic cellulitis, extreme obesity, Fibromyalgia,anxiety, depression, lymphedema,nephrotic syndrome, diabetes DIET: Diabetic. PO 0-100% LABS: A1c 02/12:6.6; BUN 25, Cr 2.19, Glu 128,Alb 2.8 MEDS: Reviewed SKIN: Wound care pending GI: No BM reported WEIGHT: 292.2kg BMI: 89.8; EXTREME OBESITY EST.NEEDS: (22-30kcal/kg Adj BW; 1.0-1.5g/kg Adj BW) Kcal: 2978-4113 Pro: 130-194g NUTRITION DIAGNOSIS: (1) Altered nutrition related laboratory values related to acute kidney injury, diabetes as evidenced by elevated BUN, Creatinine, Glucose INTERVENTION: (1) DM education provided. Meal plan, carbohydrate counting handouts left at bedside. Pt not interested in outpatient referral at this time. MONITOR/EVALUATE: PO intake, lab values, wound care assessment. F/U per moderate risk.
[2017-05-07] MEDS: cefTRIAXone Inj 2,000 MG in Dextrose 5% Minibag Plus 50 ML IV SCH (16:23)
--- NOTE | 2017-05-07 16:39 | CONS ---
[address] [address] CONSULTATION REPORT PATIENT: PO DELGADO : 1975 MR#: [id number] ADMIT: 05/06/2017 JOB ID: [id number] DATE OF SERVICE: 05/07/2017 INFECTIOUS DISEASE CONSULTATION: I thank Dr. Kenyon for this consult. REASON FOR CONSULTATION: Severe left lower extremity cellulitis in a super morbidly obese patient with sepsis. HISTORY OF PRESENT ILLNESS: The patient is a super morbidly obese, 42-year-old gentleman, well known to me from multiple admissions for severe soft tissue infections. He was last admitted to this facility in late March. During that admission he had negative cultures. He was treated with cefazolin and was eventually discharged on an oral cephalosporin antibiotic. He took the oral cephalosporin until about two weeks ago, then stopped and felt well for about 12 or 13 days. Yesterday, on May 06, he developed the abrupt onset of left lower extremity cellulitis with severe pain in his left lower extremity associated with fevers, chills, headache, generalized malaise, and weakness. The patient is well aware of the symptoms of severe soft tissue infection and so he reported to the emergency department very quickly and was readmitted and started on broad-spectrum antibiotics which currently include meropenem and clindamycin. This morning he reports he is already much improved in that his fevers and chills seem to have resolved, his headache is diminishing, and his left lower extremity pain is improved. We had the opportunity to examine the patient today with the program management specialist. PAST MEDICAL HISTORY: 1. Super morbid obesity with BMI 90 and weight in the 600+ range. 2. Recurrent soft-tissue infections left lower extremity greater than right lower extremity. 3. Lymphedema. 4. Venous insufficiency bilateral lower extremities. 5. Hypertension. 6. Fibromyalgia. 7. Back pain. 8. Depression. 9. Sleep apnea. SOCIAL HISTORY: The patient is disabled by back pain and his obesity. He does not smoke or drink. He lives with his and three children and he is currently being evaluated for possible gastric bypass. FAMILY HISTORY: Negative for TB in first- and second-degree relatives. REVIEW OF SYSTEMS: The patient had a headache yesterday; it has now resolved. He has no sore throat or trouble swallowing. He denies cough, shortness of breath or chest pain. No nausea, vomiting, diarrhea, or dysuria. His left lower extremity pain present yesterday has resolved. His right lower extremity is not bothering him. Remainder of the review of systems is negative. PHYSICAL EXAMINATION: Reveals an extremely obese gentleman, BMI 90, weight approximately 650 pounds. He is lying supine in his extra-large hospital bed in no acute distress. He was febrile last night to 37.8. Since then he has been completely afebrile, right now 36.8. Pulse 79, respiratory rate 18, blood pressure 137/74. He is saturating well on 2 L and right now he is not even wearing the 2 L and he is still saturating well. He appears to be in no acute distress. His mental status is sharp, his eyes without conjunctivitis, and his oral cavity with no thrush or pharyngitis. His neck is obese and cannot be really examined. His lungs are clear, but distant. His cardiac tones regular rate and rhythm, but very distant. Abdomen: Massive pannus and a difficult exam but no focal tenderness or abnormality is noted. Patient does not have a Reddy catheter. He has lymphedema and venous stasis changes bilateral lower extremities with crusting of the skin below the knees bilaterally. The right leg below the knee is actually much more swollen than the left, but the left once again is the one involved with the cellulitis. There is some very shallow slough on the posterior aspect of his enlarged left lower leg over the mid calf area but there is no true ulcer or deep wound present. There is a confluent cellulitis which extends around from this area of shallow skin injury and encompasses a fair proportion of the left lower extremity below the knee. The foot and ankle on the left is not involved. Patient has good strength and range of motion around his lower extremities despite his large size and ongoing cellulitis. No evidence of synovitis is obvious, though it would be difficult to assess in this patient. No skin rash anywhere else and he is neurologically intact. LABORATORIES: Include white count was 16,000 last night, now 20,000, 89% segs. Sed rate 38 for whenever that is worth. Creatinine 2.19. It is notable that when he was last in the hospital his creatinine was about 1.2, so it has almost doubled since what we knew a month ago. Lactic acid 0.6. LFTs normal. CRP 8.1 and was last measured over a year ago when it was normal. Procalcitonin 2.52, a dramatic change from his last admission when his highest procalcitonin was around 1. It is notable that when he was here back in January for another septic episode his procalcitonin was as high as 8, however. Urinalysis on this admission shows greater than 50 red cells, 6-10 white cells, and heavy proteinuria. Streptozyme has been measured on numerous prior admissions. Back in November and December and January he had ASO titers between 450 and 500, which did not vary at all. MRSA screen of the nares this admission negative. Urine culture pending, negative so far. Blood cultures pending so far. During his March admission we do not have any positive cultures. During his February admission he had no positive cultures. During his December admission no positive cultures. In fact, we have never cultured Staph aureus or beta strep from this patient, at least going back a couple of years. Imaging on this admission includes a chest radiograph which is normal. IMPRESSION: This is an incredibly unfortunate 600+ pound gentleman with a BMI of 90. He suffers from chronic lymphedema and severe venous stasis changes with lichenification to the skin below the knees. This predisposes him to recurrent cellulitic episodes which are likely streptococcal. It is difficult to say what is going on with respect to group A strep as his streptozymes are always positive but I think probably many of these infections do constitute recurrent group A strep infections. Recall that the antibodies produced reaction to group A strep infections such as streptozyme will stay elevated for three or four months after each infection and so his ASO titers are always positive and we are left with uncertainty as to whether the ASO titers seen on any given sample are related to that admission or to the admission months before. 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 This time, as occurred in his earlier admission back in January, the patient's creatinine has bumped up and I wondered if he is experiencing post streptococcal glomerulonephritis. RECOMMENDATIONS: 1. The patient is currently receiving meropenem and clindamycin. He does not look to be septic or to have a life-threatening infection due to group A strep, so I think we can probably stop the clindamycin at this point given the risk of causing C. diff. 2. We will start ceftriaxone in a dose of 2 g q.24. The exact dosing in a gentleman this large is, of course, not well established but I do think that would be a reasonable dose to start. 3. We are going to order ASO and anti-DNase antibodies to see if we can prove that he has had a recent streptococcal infection to predispose him to post streptococcal GN. 4. Will continue to follow this complex patient with you. 5. We discussed good hygiene and using Hibiclens on the lower extremity when he showers. 6. Left lower extremity ultrasound will be ordered to rule out DVT.
--- NOTE | 2017-05-07 17:24 | NUR ---
Wound order received, 42 yo male admitted to [facility] with left lower leg cellulitis. Seen at bedside with DR Eddy, cellulitis at left leg extends to the knee, skin remarkable for 2 superficial skin abrasions at the medial posterior calf which are really unremarkable. Does not require wound care at this time, discussed using hibiclens to clean skin with daily when he showers to help keep him from getting cellulitis which Dr Eddy feels is likely due to strep.
--- NOTE | 2017-05-07 17:51 | NUR ---
Ambulation Pt deferred working with PT till available to take shower. The order did not come in till later in the shift and PT had already left for the day. Pt up and walking with light SBA to bathroom to shower, steady gait, and only needed assistance with getting out of the bed and with some wires.
[2017-05-07 20:22] VITALS: BP 123/65; PULSE 97; RESP 18; O2SAT 91
[2017-05-07] MEDS: Heparin 5,000 Unit/mL Inj SUBQ SCH (21:34)
[2017-05-08 00:25] VITALS: BP 118/68; PULSE 92; RESP 17; O2SAT 92
[2017-05-08] MEDS: 0.9% Sodium Chloride 1,000 ML IV SCH ×3 (00:28→11:05)
--- NOTE | 2017-05-08 01:41 | PCM.PNMED ---
Subjective Date of Service May 08, 2017 Subjective Patient is seen and examined he is being helped to bed by his CLINICAL RESEARCH NURSE. He says that he is feeling much better wanting to go home Exam Vital Signs Vital Sign - Last Date Time Temp Pulse Resp B/P Pulse Ox O2 Delivery O2 Flow Rate FiO2 05/08/17 00:25 36.6 92 17 118/68 92 Room Air 05/07/17 13:24 2.00 Intake and Output 05/07/17 05/07/17 05/08/17 Cumulative From/Thru 15:00 23:00 07:00 05/06/17 17:34 - 05/08/17 01:05 Intake Total 523 ml 2095 ml 4418 ml Output Total 500 ml 1100 ml Balance 523 ml 1595 ml 3318 ml Intake Oral 1200 ml 2000 ml IV Total 523 ml 895 ml 2418 ml Output Urine Total 500 ml 1100 ml # Bowel Movements 1 1 IVs and Medications Medications Reviewed: Medications were reviewed in detail Lab and Diagnostics Result Diagram: 05/07/17 0553 05/07/17 0553 Microbiology Blood cultures 2 pending X-Rays, CTs and MRIs Chest x-ray performed 05/06/2017 IMPRESSION: No acute cardiopulmonary disease. Right basilar scars and/or atelectasis. Dictated by: Kayleen Romero M.D. on 05/06/2017 at 19:17 Assessment & Plan 42-year-old gentleman with substantial medical history significant for severe morbid obesity, metabolic syndrome, recurrent cellulitis, hypertensive nephrosclerosis, segmental sclerosis, ENEDINA, severe lymphedema, presents with worsening of recurring lower extremity cellulitis, and ulcers to posterior left calf. Vital signs lab work suggestive of sepsis. # Acute on chronic CKD: seems to be worsening lately. He says with every cellulitis episode, cr worsens -- Creatine worsened this AM, basleine of 1.7-1.9 -- d/c nephrotoxic medications -- Cont IVF Hydration -- FeUrea and renal labs for the AM -- Renal US in the AM # Acute sepsis secondary to left lower extremity cellulitis, present on admission, treatment initiated Respiratory rate 22, heart rate 100, WBC 16.2, lactic acid 2.6 source identified as left lower extremity wounds and probable cellulitis Blood cultures 2: NGT date Antibiotic treatment as below Normal saline 100 mL per hour # Left lower extremity stasis ulcer, present on admission, treatment initiated Recurrent, consistent with previous hospitalizations, no history of MRSA, however given risk factors of numerous antibiotics, and numerous hospitalizations, will cover for MRSA pending screening. Wound care consultation ID changed antibiotics to ceftriaxone, discontinued clindamycin "We are going to order ASO and anti-DNase antibodies to see if we can prove that he has had a recent streptococcal infection to predispose him to post streptococcal GN." # Lactic acidosis, present on admission, resolved Ucon to be secondary to sepsis, resolved after IV fluid hydration # Elevated blood glucose, present on admission, resolved Blood glucose 115 Previous hemoglobin A1c 6.6 on 02/12/2017 Diabetic constant carb diet Diabetes education Recheck A1c # Chronic Hematuria, present on admission, stable Greater than 50 red blood cells per high-powered field Review of previous UAs shows this to be consistent. Will consider urology/nephrology consultation with any change in creatinine or new symptoms. # Chronic Anxiety and depression, POA,stable, Continue home sertraline 150 mg daily # Chronic pain and fibromyalgia, present on admission Continue home medication of oxycodone 20 mg every 4 hours Hold for somnolence, respiratory depression Continue home gabapentin 600 mg twice a day Chronic Hypertension, present on admission, uncontrolled -- Continue medications We will continue to monitor. Pain management oxycodone 20 mg every 4 hours, gabapentin as above Bowel regimen as needed DVT prophylaxis subcutaneous heparin every 8 hours Disposition: Patient admitted under inpatient status with expected length of stay > 2 midnights for severity of present symptoms, complexities of treatment plan and risk for adverse events. PAULA michaud is p[laced for home wound care consideration. CODE STATUS: Full code Pain Evaluation: Adequate Pain Control GI Prophylaxis: Not indicated VTE Prophylaxis: Sub-Q Heparin (Unfractionated) Resuscitation Status: CPR: Attempt Resuscitation Time spent 20 min Mili Kenyon DO May 08, 2017 01:41
--- NOTE | 2017-05-08 02:32 | NUR ---
Pain Patient rating pain to LLE around 6-7/10. Receiving Oxycodone 20mg PO with effective results. Noted to be resting with eyes closed upon reassessments.
[2017-05-08 03:04] LABS: APPEARANCE,URINE SLIGHTLY CLOUDY (CLEAR,HAZY); COLOR,URINE DARK YELLOW (YELLOW); OCCULT BLOOD,URINE LARGE (NEGATIVE); PH,URINE 5.5 (5.0-8.0); UROBILINOGEN,URINE NORMAL (NORMAL)
[2017-05-08 05:00] VITALS: BP 127/63; PULSE 97; RESP 17; O2SAT 94
[2017-05-08] MEDS: Heparin 5,000 Unit/mL Inj SUBQ SCH ×3 (05:50→22:22)
[2017-05-08 06:17] LABS: Mean Corpuscular Hemoglobin 26.3 pg (27.0-35.0); Mean Corpuscular Volume 86.6 fL (81-100)
[2017-05-08 06:59] LABS: Magnesium 1.9 mg/dL (1.6-2.6)
--- NOTE | 2017-05-08 09:55 | DRSVH ---
PROCEDURE: US RETROPERITONEAL SONOGRAM ([id number]) INDICATIONS: acute renal injury TECHNIQUE: Real-time scanning was performed of the kidneys and bladder, with image documentation. COMPARISON: [facility], US, RETROPERITONEAL SONOGRAM, 12/26/2014, 9:04. FINDINGS: Kidneys: Kidneys are normal in size. Right kidney measures 15.9 cm long; left kidney measures 16.1 cm long. Right renal cortical thickness is 2.2 cm; left renal cortical thickness is 2.1 cm. Renal c ortical echotexture is normal. No hydronephrosis or nephrolithiasis. No suspicious solid mass lesio ns. Bladder: Bladder is decompressed and unremarkable, as the patient voided prior to the examination. Miscellaneous: No free pelvic fluid. IMPRESSION: No hydronephrosis. Decompressed bladder, therefore not evaluated. Dictated by: Dale Ruiz M.D. on 05/08/2017 at 9:48 Approved by: Dale Ruiz M.D. on 05/08/2017 at 9:53
[2017-05-08 10:43] VITALS: BP 144/79; PULSE 86; RESP 18; O2SAT 94
--- NOTE | 2017-05-08 11:44 | PROG NOTE ---
[address] [address] PROGRESS NOTE PATIENT: PO DELGADO : 1975 MR#: [id number] ADMIT: 05/06/2017 JOB ID: [id number] DATE: 05/08/2017 REASON FOR FOLLOWUP: Recurrent cellulitis in a super morbidly obese gentleman with a BMI now exceeding 90. INTERVAL HISTORY: Overnight, the patient states he started to feel much, much better and has now returned basically to his normal state of health. He says he is becoming more in tune with his body and he is now able to pick up worker on cellulitis very early and come in and get help before he gets septic. At this point, he has no fevers, chills, or sweats. No new pulmonary or GI symptoms, and his left leg is already feeling back towards normal. This case was discussed in person, however, with the renal attending. The biggest concern here is the patient has once again suffered a major bump in his creatinine as result of the soft tissue infection. Whether this represents ATN due to relative hypotension or post streptococcal glomerulonephritis or some combination remains unknown. PHYSICAL EXAMINATION: Reveals a massively obese gentleman in no acute distress. Temperature 36.6, pulse 86, respiratory rate 18, blood pressure 144/79. He is saturating well on room air and looks quite comfortable. His oral exam unremarkable. His lungs are distant but nothing grossly abnormal. Cardiac tones regular and very distant. Abdomen massively obese, nontender. His left lower extremity cellulitis is much improved and nontender. LABORATORIES: Include white count which has dropped all the way from 20,000 to normal. It is now 8000. Sed rate 38. LFTs are normal. Procalcitonin is stable at about 2.2. It is unclear what that means in view of his renal dysfunction with his creatinine now jumping from 2.2 yesterday to almost 2.8 today. Recall that when he came in just two days ago, his creatinine was 1.6, so he has jumped over a full point since that time. Streptozyme this time is 362. He had been around 450 his last couple admissions, so it is hard to know whether this proves a group A strep infection or not, as it is always relatively positive. Urine eosinophil is negative. MRSA screen negative. Blood cultures negative. IMAGING: Included a retroperitoneal ultrasound which showed no hydronephrosis or obstruction. IMPRESSION: This is a morbidly obese gentleman with a body mass index now exceeding 90 who is admitted frequently for soft tissue infections due to chronic lymphedema. I suspect this is a group A or group B streptococcus once again. At this time, we do not have any positive cultures to prove that. We discussed prophylaxis, and the patient tells me that in the past we have tried clindamycin, amoxicillin, and Keflex as prophylaxis, and the only one that really seemed to work was clindamycin. I am not totally enthusiastically or sanguine about giving clindamycin to an outpatient 650 pounds man for fear of precipitating Clostridium difficile which would make his fluid and electrolyte problems much worse and not be good for his kidneys, but we must do something to prophylax him. RECOMMENDATIONS: 1. As long as he is here in the hospital, I would continue with IV ceftriaxone. 2. Once he is ready to go home, he could be discharged on Keflex 500 mg p.o. q.i.d. for one additional week. 3. I would also send him out on clindamycin 300 p.o. b.i.d. to be taken basically indefinitely in the hopes of preventing recurrent soft-tissue infection. 4. Yesterday, we discussed with the patient the idea of using Hibiclens to cleanse his lower legs below the knee about three times a week while he is in the shower in hopes of perhaps forestalling additional infections. 5. As I have stated in numerous previous notes, the only real hope for this fellow is to get him a bypass procedure so he can lose about half of his current body weight and start to have less infections, renal dysfunction, and other problems. PAULETTE
--- NOTE | 2017-05-08 13:59 | PCM.PNNEPH ---
Rubi Hester DO 05/08/17 1359: Subjective Date of Service May 08, 2017 Subjective NEPHROLOGY CONSULTATION NOTE Patient states he is feeling better today. The pain in his left leg has improved. He denies any more fever and chills. His appetite is better, he denies nausea, vomiting, diarrhea. He has not been experiencing shortness of breath. The biggest concern is whether or not he may be able to leave tomorrow as his brother is getting tomorrow at 1:00PM in [place]. Exam Vital Signs Vital Sign - Last Date Time Temp Pulse Resp B/P Pulse Ox O2 Delivery O2 Flow Rate FiO2 05/08/17 10:43 36.7 86 18 144/79 94 Nasal Cannula 05/07/17 13:24 2.00 Intake and Output 05/07/17 05/07/17 05/08/17 Cumulative From/Thru 15:00 23:00 07:00 05/06/17 17:34 - 05/08/17 06:07 Intake Total 523 ml 2095 ml 2322 ml 6740 ml Output Total 500 ml 2650 ml 3750 ml Balance 523 ml 1595 ml -328 ml 2990 ml Intake Oral 1200 ml 1200 ml 3200 ml IV Total 523 ml 895 ml 1122 ml 3540 ml Output Urine Total 500 ml 2650 ml 3750 ml # Bowel Movements 1 0 1 Exam General: Alert, Oriented X3, Cooperative, No Acute Distress Head: Normal Eyes: PERRLA, EOMI, Scleral Anicteric Chest & Lungs: Clear to auscultation in the anterior hogan Cardiovascular: Regular Rate/Rhythm, No Murmurs/Rubs/Gallops, Other (distant heart tones) Abdomen: Non-tender, Soft, Obese Genitourinary: Reddy Absent Extremities: Severe nonpitting edema of the bilateral lower extremities consistent with lymphedema Skin: Wounds/Lacerations (posterior LLE), Redness (LLE) Neurological: Grossly Neurologically Intact, Cranial Nerves 2-12 Intact, Normal Speech IVs and Medications Medications Reviewed: Medications were reviewed in detail Lab and Diagnostics Result Diagram: 05/08/1755405/08/17554 Plan Plan: Patient is a 42 year old male who is well known at this facility. He has a history of recurrent cellulitis, nephrotic and nephritic syndrome, lymphedema, HTN, ENEDINA, arthritis, venous insufficiency, metabolic syndrome, and morbid obesity. He presented to [facility] on 05/06/17 after experiencing chills and rigors. Nephrology service was consulted due to acute kidney injury. Hospital day #2. 1) Acute kidney injury. - Likely secondary to ATN in the setting of sepsis. - Creatinine continued to rise today. - Holding lisinopril. Switch to amlodipine 5 mg daily. - Avoid nephrotoxic agents - especially vancomycin. 2) Chronic glomerulonephritic and nephrotic syndrome. - Differential includes: Focal segmental glomerulosclerosis of obesity, IgA nephropathy, SLE, MPGN. - Not confirmed with renal biopsy as the patient's body habitus prevents us from being able to get a good sample. - Minimize insults to the kidney by avoiding nephrotoxic agents. - Continue to encourage bariatric surgery. - Repeat CONSTANZA, IF pending. 3) Hypertension. - Will hold lisinopril at this time. - For blood pressure management with use amlodipine 5 mg daily. 4) Lower extremity cellulitis. - Will defer to Dr. Eddy's expertise for treatment. Thank you for the consultation on this interesting patient. We will continue to follow along during the course of admission. Damián Cabrera MD 05/08/17 1411: Exam Lab and Diagnostics Result Diagram: 05/08/17 0555 05/08/17 0555 Plan Impression Patient was seen and examined. Case discussed with a resident. Agreed with assessment and plan as above. Livia Hernandez MD Pg [phone] Rubi Hester DO May 08, 2017 13:59 Damián Cabrera MD May 08, 2017 14:11
--- NOTE | 2017-05-08 14:30 | DRSVH ---
PROCEDURE: US VEINOUS LEG DUPLEX UNILATERAL, LEFT INDICATIONS: left lower extr swelling and pain TECHNIQUE: Real-time imaging, as well as color and pulse Doppler interrogation, were performed of the lower extr emity deep veins from the inguinal ligament to the popliteal fossa. COMPARISON: [facility], US, US VENOUS LEG DPLX UNI LT, 12/15/2016, 12:04. FINDINGS: Exam limited by patient's bodily habitus. Within these limits, deep veins are normally com pressible, and free of intraluminal thrombus. Color and pulse Doppler demonstrate normal phasic intr aluminal flow. There is normal augmentation response to distal compression maneuver. IMPRESSION: Limited exam demonstrating No definite left lower extremity deep venous thrombosis. Dictated by: Kody HOPKINS Interpreted: Yudi Waters MD on 05/08/2017 at 8:47 Approved by: Yudi Waters M.D. on 05/08/2017 at 14:28
[2017-05-08] MEDS: cefTRIAXone Inj 2,000 MG in Dextrose 5% Minibag Plus 50 ML IV SCH (17:45)
[2017-05-08 17:51] VITALS: BP 155/97; PULSE 88; RESP 18; O2SAT 93
--- NOTE | 2017-05-08 18:33 | NUR ---
Urine Pts. urine was very dark brown with a red tinge to it this morning. Pt. said it was a little better than yesterday. Urine this afternoon still very dark brown, but no redness. aware. NS running at 100 today. Nephrology consulted today. Will continue to monitor.
[2017-05-08 20:15] VITALS: BP 143/76; PULSE 96; RESP 19; O2SAT 91
[2017-05-08] MEDS ORDERED: 0.9% Sodium Chloride 1,000 ML IV SCH (22:09)
--- NOTE | 2017-05-09 | PCM.PNMED ---
Subjective Date of Service May 08, 2017 Subjective PAtietn is seen and examined. He seems to have several questions on his kidney disease, color of urine. from Nephrology notes, patient is thought to have a nephritic syndrome but unclear what the dx is. He has positive vicky and anti- colunga ab, so looks like he did not have a renal biopsy to conclusively diagnose. Focal segmental glomerulosclerosis of obesity, IgA nephropathy, SLE, MPGN are all being considered Exam Vital Signs Vital Sign - Last Date Time Temp Pulse Resp B/P Pulse Ox O2 Delivery O2 Flow Rate FiO2 05/08/17 20:15 36.7 96 19 143/76 91 Room Air 05/07/17 13:24 2.00 Intake and Output 05/08/17 05/08/17 05/09/17 Cumulative From/Thru 15:00 23:00 07:00 05/06/17 17:34 - 05/08/17 19:20 Intake Total 2216 ml 8956 ml Output Total 1600 ml 5350 ml Balance 616 ml 3606 ml Intake Oral 1176 ml 4376 ml IV Total 1040 ml 4580 ml Output Urine Total 1600 ml 5350 ml # Bowel Movements 1 Exam General: Laying in bed, no apparent distress. Severely obese HEENT: Normocephalic, atraumatic, EOMI grossly, pupils fixed 2 mm, nasal cannula in place, mucous membranes moist, conjunctivae are pink Cardiovascular: Tachycardic with regular rhythm, no clicks murmurs rubs, peripheral pulses 2/4 equal bilaterally, heart sounds are distant Pulmonary: Clear to auscultation bilaterally, no W/R/R. breath sounds are distant Abdominal: Very large, there is area of induration just inferior to umbilicus, it is tender, and warm mildly erythematous. No open lesions, no purulence, no weeping. Extremities: Bilaterally grossly edematous, there are open wounds to the posterior left calf, no foul smell, not grossly purulent, do not appreciate any crepitus, no red streaking. Left lower calf is more red and warm compared to right. Imrpoved today Neuro: Neurologically grossly intact, Psych: Oriented to person place time and situation, appropriate affect. IVs and Medications IV Fluids NSS 100 cc/hr Medications Reviewed: Medications were reviewed in detail Lab and Diagnostics Result Diagram: 05/08/17 0555 05/08/17 0555 Assessment & Plan 42-year-old gentleman with substantial medical history significant for severe morbid obesity, metabolic syndrome, recurrent cellulitis, hypertensive nephrosclerosis, segmental sclerosis, ENEDINA, severe lymphedema, presents with worsening of recurring lower extremity cellulitis, and ulcers to posterior left calf. Vital signs lab work suggestive of sepsis. # Acute on chronic CKD: seems to be worsening lately. He says with every cellulitis episode, cr worsens -- Creatine worsened this AM, basleine of 1.7-1.9 -- d/c nephrotoxic medications -- Cont IVF Hydration -- FeUrea and renal labs for the AM -- Renal US in the AM # Acute sepsis secondary to left lower extremity cellulitis, present on admission, treatment initiated Respiratory rate 22, heart rate 100, WBC 16.2, lactic acid 2.6 source identified as left lower extremity wounds and probable cellulitis Blood cultures 2: NGT date Antibiotic treatment as below Normal saline 100 mL per hour # Left lower extremity stasis ulcer, present on admission, treatment initiated Recurrent, consistent with previous hospitalizations, no history of MRSA, however given risk factors of numerous antibiotics, and numerous hospitalizations, will cover for MRSA pending screening. Wound care consultation ID changed antibiotics to ceftriaxone, discontinued clindamycin "We are going to order ASO and anti-DNase antibodies to see if we can prove that he has had a recent streptococcal infection to predispose him to post streptococcal GN." # Chronic Hematuria, present on admission, stable Greater than 50 red blood cells per high-powered field Review of previous UAs shows this to be consistent. Will consider urology/nephrology consultation with any change in creatinine or new symptoms. # Chronic Anxiety and depression, POA,stable, Continue home sertraline 150 mg daily # Chronic pain and fibromyalgia, present on admission Continue home medication of oxycodone 20 mg every 4 hours Hold for somnolence, respiratory depression Continue home gabapentin 600 mg twice a day Chronic Hypertension, present on admission, uncontrolled -- Continue medications We will continue to monitor. # Lactic acidosis, present on admission, resolved [place] to be secondary to sepsis, resolved after IV fluid hydration # Elevated blood glucose, present on admission, resolved Blood glucose 115 Previous hemoglobin A1c 6.6 on 02/12/2017 Diabetic constant carb diet Diabetes education Recheck A1c Pain management oxycodone 20 mg every 4 hours, gabapentin as above Bowel regimen as needed DVT prophylaxis subcutaneous heparin every 8 hours Disposition: Patient admitted under inpatient status with expected length of stay > 2 midnights for severity of present symptoms, complexities of treatment plan and risk for adverse events. SW ordere is p[laced for home wound care consideration. CODE STATUS: Full code Pain Evaluation: Adequate Pain Control GI Prophylaxis: Not indicated VTE Prophylaxis: Sub-Q Heparin (Unfractionated) Resuscitation Status: CPR: Attempt Resuscitation Mili Kenyon DO May 09, 2017 00:00
[2017-05-09 04:47] VITALS: BP 139/78; PULSE 91; RESP 19; O2SAT 94
--- NOTE | 2017-05-09 05:16 | NUR ---
/ pain Adequate urine output, urine continues to be dark, reddish in color. Pain well controlled with prn oxycodone, leg swelling and redness improved per pt report. Pt anticipating D/C today if labs are improved. Hourly rounding ongoing.
[2017-05-09] MEDS: Heparin 5,000 Unit/mL Inj SUBQ SCH (05:27)
[2017-05-09 06:39] LABS: Mean Corpuscular Hemoglobin 26.7 pg (27.0-35.0); Mean Corpuscular Volume 86.6 fL (81-100)
[2017-05-09] MEDS ORDERED: CLIN-78 PO (11:07)
[2017-05-09] MEDS ORDERED: AMLO5TAB2 PO (11:07)
[2017-05-09] MEDS ORDERED: POLY17PO6 PO (11:07)
[2017-05-09] MEDS ORDERED: CEPH-512 PO (11:08)
--- NOTE | 2017-05-09 11:12 | PCM.DIMED ---
Discharge Instructions Date of Service May 09, 2017 Dates of Hospitalization May 06, 2017 at 21:16 Discharge Diagnosis Discharge Diagnosis Cellulitis of L lower leg, Nephritic syndrome, Acute on chronic Renal Failure, Morbid Obesity, Hypertension, chronic pain, ENEDINA Medication Instructions Additional med instructions clindamycin is indefinitely Dr. Eddy discussed with the patient the idea of using Hibiclens to cleanse his lower legs below the knee about three times a week while he is in the shower in hopes of perhaps forestalling additional infections. Please continue to pursue Gastric Bypass surgery Diet Discharge Diet: Heart Healthy Activity Discharge Activity: No restrictions Call your provider Call your provider for: Fever or Chills, Shortness of breath, Bleeding, Chest pain, Vomitting, Excessive diarrhea, Weakness (unilateral) Patient Instructions Follow-up plan F/U with Dr. Samayoa/Dr Hernandez on 05/12/17 at their clinic. [facility] F/U with PCP in 2 weeks Mili Kenyon DO May 09, 2017 11:12
[2017-05-09] MEDS ORDERED: LACT1CAP13 PO (11:13)
--- NOTE | 2017-05-09 12:18 | PCM.PNNEPH ---
Subjective Date of Service May 09, 2017 Subjective Afebrile, no chills, no N/V/CP/SOB. Urine is more clear. Feeling fine. Serum creatinine continues to rise slowly. He would like to attend his brother's wedding today at 1pm. He is aware that his kidney function has become worsened today. Exam Vital Signs Vital Sign - Last Date Time Temp Pulse Resp B/P Pulse Ox O2 Delivery O2 Flow Rate FiO2 05/09/17 04:47 36.5 91 19 139/78 94 Room Air 05/07/17 13:24 2.00 Intake and Output 05/08/17 05/08/17 05/09/17 Cumulative From/Thru 15:00 23:00 07:00 05/06/17 17:34 - 05/09/17 05:29 Intake Total 2216 ml 2411 ml 71826 ml Output Total 1600 ml 1650 ml 7000 ml Balance 616 ml 761 ml 4367 ml Intake Oral 1176 ml 1450 ml 5826 ml IV Total 1040 ml 961 ml 5541 ml Output Urine Total 1600 ml 1650 ml 7000 ml # Bowel Movements 0 1 Exam General: Alert, Oriented X3, Cooperative, No Acute Distress Head: Normal Eyes: PERRLA, EOMI, Scleral Anicteric Chest & Lungs: Clear to auscultation in the anterior hogan Cardiovascular: Regular Rate/Rhythm, No Murmurs/Rubs/Gallops, Other (distant heart tones) Abdomen: Non-tender, Soft, Obese Genitourinary: Reddy Absent Extremities: Severe nonpitting edema of the bilateral lower extremities consistent with lymphedema Skin: Wounds/Lacerations (posterior LLE), Redness (LLE) Neurological: Grossly Neurologically Intact, Cranial Nerves 2-12 Intact, Normal Speech Lab and Diagnostics Result Diagram: 05/09/17 0607 05/09/17 0607 Plan Impression 1) Acute kidney injury. - Likely secondary to ATN in the setting of sepsis. - Postinfectious GN is possible but less likely given normal C3/C4 level. - Creatinine continued to rise today. - Holding lisinopril. Continue amlodipine 5 mg daily. - Avoid nephrotoxic agents - especially vancomycin. - If he leaves AMA to attend his brother's wedding today, should we obtain a repeat BMP on Friday 05/11 and followup on Saturday 05/12. - Risks and benefits discussed. 2) Chronic glomerulonephritic and nephrotic syndrome. - Differential includes: Focal segmental glomerulosclerosis of obesity, IgA nephropathy, SLE, MPGN. - Not confirmed with renal biopsy as the patient's body habitus prevents us from being able to get a good sample. - Minimize insults to the kidney by avoiding nephrotoxic agents. - Continue to encourage bariatric surgery. - Repeat CONSTANZA, IF pending. 3) Hypertension. - Will hold lisinopril at this time. - For blood pressure management with use amlodipine 5 mg daily. 4) Lower extremity cellulitis. - Will defer to Dr. Eddy's expertise for treatment. Damián Cabrera MD May 09, 2017 12:18
--- NOTE | 2017-05-09 12:24 | NUR ---
Discharge Pt discharged to home via private vehicle with family at 1223 hrs. Pain controlled with oral oxycodone. PIV removed intact. VSS. Educated pt about care of wound on posterior lower leg. Advised pt to keep leg clean and dry and to elevate his leg on a clean pillow. Also instructed pt on hand washing. Stressed the importance of his taking the antibiotics starting today and to take the full course of medication. Follow up instructions given. Pt expressed understanding. Pt was in a hurry to leave to attend his brother's wedding today.
--- NOTE | 2017-05-09 12:57 | NUR ---
Social Work: Attempted Initial Assessment/Discharge DAP: EMR reviewed. Pt is a 42 y/o male admitted for sepsis, LLE cellulitis per H&P. SW attempted to meet with pt at bedside to conduct initial assessment. Per MD in AM multi-disciplinary rounds, pt eager to discharge to attend a family wedding today. Pt discharged from hospital prior to SW conducting initial assessment. Per RN notes, "pt discharged to home via private vehicle with family at 1223 hrs. Pain controlled with oral oxycodone. PIV removed intact. VSS. Educated pt about care of wound on posterior lower leg. Advised pt to keep leg clean and dry and to elevate his leg on a clean pillow. Also instructed pt on hand washing. Stressed the importance of his taking the antibiotics starting today and to take the full course of medication. Follow up instructions given. Pt expressed understanding. Pt was in a hurry to leave to attend his brother's wedding today." SAÚL Grier
--- NOTE | 2017-05-10 08:01 | PCM.DC.MED ---
Discharge Summary Date of Service May 09, 2017 Dates of Hospitalization Date of Hospital Admission May 06, 2017 at 21:16 Date of Discharge: May 09, 2017 Providers: Admitting Physician: Neptali Thakur MD Primary Care Physician: Michael Walton DO Attending Physician: Neptali Thakur MD Diagnosis at Time of Discharge Diagnosis at Time of Discharge Cellulitis of L lower leg, Nephritic syndrome, Acute on chronic Renal Failure, Morbid Obesity, Hypertension, chronic pain, ENEDINA Consultations Nephrology, ID, PT/OT Procedures XRay, CTs & MRIs \\ Date of Service: 05/08/17 0500 PROCEDURE: US RETROPERITONEAL SONOGRAM ([id number]) INDICATIONS: acute renal injury IMPRESSION: No hydronephrosis. Decompressed bladder, therefore not evaluated. Dictated by: Dale Ruiz M.D. on 05/08/2017 at 9:48 Approved by: Dale Ruiz M.D. on 05/08/2017 at 9:53 PROCEDURE: US VEINOUS LEG DUPLEX UNILATERAL, LEFT INDICATIONS: left lower extr swelling and pain. IMPRESSION: Limited exam demonstrating No definite left lower extremity deep venous thrombosis. Dictated by: Kody Maria [facility] Interpreted: Yudi Waters MD on 05/08/2017 at 8: 47 Approved by: Yudi Waters M.D. on 05/08/2017 at 14:28 PROCEDURE: X-RAY CHEST ONE VIEW, PORTABLE ([id number]) INDICATIONS: sepsis IMPRESSION: No acute cardiopulmonary disease. Right basilar scars and/or atelectasis. Dictated by: Kayleen Romero M.D. on 05/06/2017 at 19:17 Approved by: Kayleen Romero M.D. on 05/06/2017 at 19:19 Brief History Patient is a 42 year old male who is well known at this facility. He has a history of recurrent cellulitis, nephrotic and nephritic syndrome, lymphedema, HTN, ENEDINA, arthritis, venous insufficiency, metabolic syndrome, and morbid obesity. He presented to [facility] on 05/06/17 after experiencing chills and rigors. Fever was also noted. He had seen an increase in the swelling, erythema, and tenderness in his left leg and recognized this as a worsening of his cellulitis. Patient has multiple prior hospitalizations with the same sort of presentation. Also discovered was an elevated creatinine of 1.6. On March 23, 2017, outpatient records indicate that the patient has a normal creatinine at baseline. Hospital Course 42-year-old gentleman with substantial medical history significant for severe morbid obesity, metabolic syndrome, recurrent cellulitis, hypertensive nephrosclerosis, segmental sclerosis, ENEDINA, severe lymphedema, presents with worsening of recurring lower extremity cellulitis, and ulcers to posterior left calf. Vital signs lab work suggestive of sepsis. # Acute on chronic CKD: seems to be worsening -- Patient is currently undergoing nephropathy work up by Dr. Samayoa/Dr. Hernandez group o/p. CONSTANZA, Anti-sm positive. Hepatitis neg, HIV neg -- Creatine worsened this addmission, basleine of 1.7-1.9 -- d/c nephrotoxic medications -- Cont IVF Hydration -- FeUrea and renal labs for the AM: show pre-renal azotemia -- Renal US was negative for hydronephrosis -- In spite of our recommendation that patient stayed till his renal function improved, patient opted to leave AMA as he felt his kidneys would get better on their own as his cellulitis improves and wanted to attend a family wedding. -- We asked patient to f/u with a BMP on 05/11/17 and clinic visit to nephrology on 05/12/17. # Acute sepsis secondary to left lower extremity cellulitis, present on admission, resolved Respiratory rate 22, heart rate 100, WBC 16.2, lactic acid 2.6 source identified as left lower extremity wounds and probable cellulitis Blood cultures 2: NGT date Antibiotic treatment as below Normal saline 100 mL per hour # Left lower extremity stasis ulcer, present on admission, improving Recurrent, consistent with previous hospitalizations, no history of MRSA, however given risk factors of numerous antibiotics, and numerous hospitalizations, will cover for MRSA pending screening. Wound care consultation ID changed antibiotics to ceftriaxone, discontinued clindamycin "We are going to order ASO and anti-DNase antibodies to see if we can prove that he has had a recent streptococcal infection to predispose him to post streptococcal GN." He wanted to leave AMA on 05/09/17, gave him scripts for Keflex and clindamycin. # Chronic Hematuria, present on admission, stable Greater than 50 red blood cells per high-powered field Review of previous UAs shows this to be consistent. Will consider urology/nephrology consultation with any change in creatinine or new symptoms. # Chronic Anxiety and depression, POA,stable, Continue home sertraline 150 mg daily # Chronic pain and fibromyalgia, present on admission Continue home medication of oxycodone 20 mg every 4 hours Hold for somnolence, respiratory depression Continue home gabapentin 600 mg twice a day Chronic Hypertension, present on admission, uncontrolled -- Note home med Lisinopril changed to amlodipine per nephro recommendation We will continue to monitor. # Lactic acidosis, present on admission, resolved [place] to be secondary to sepsis, resolved after IV fluid hydration # Elevated blood glucose, present on admission, resolved Blood glucose 115 Previous hemoglobin A1c 6.6 on 02/12/2017 Diabetic constant carb diet Diabetes education Recheck A1c Pain management oxycodone 20 mg every 4 hours, gabapentin as above Bowel regimen as needed DVT prophylaxis subcutaneous heparin every 8 hours Disposition: Patient admitted under inpatient status with expected length of stay > 2 midnights for severity of present symptoms, complexities of treatment plan and risk for adverse events. PAULA michaud is p[laced for home wound care consideration. CODE STATUS: Full code Exam Vital Signs (Last) Date Time Temp Pulse Resp B/P Pulse Ox O2 Delivery O2 Flow Rate FiO2 05/09/17 04:47 36.5 91 19 139/78 94 Room Air 05/07/17 13:24 2.00 Exam General: Laying in bed, no apparent distress. Severely obese HEENT: Normocephalic, atraumatic, EOMI grossly, pupils fixed 2 mm, nasal cannula in place, mucous membranes moist, conjunctivae are pink Cardiovascular: Tachycardic with regular rhythm, no clicks murmurs rubs, peripheral pulses 2/4 equal bilaterally, heart sounds are distant Pulmonary: Clear to auscultation bilaterally, no W/R/R. breath sounds are distant Abdominal: Very large, there is area of induration just inferior to umbilicus, it is tender, and warm mildly erythematous. No open lesions, no purulence, no weeping. Extremities: Bilaterally grossly edematous, there are open wounds to the posterior left calf, no foul smell, not grossly purulent, do not appreciate any crepitus, no red streaking. Left lower calf Imrpoved today Neuro: Neurologically grossly intact, Psych: Oriented to person place time and situation, appropriate affect Test 05/06/17 20:25 05/06/17 20:38 05/07/17 05:53 05/07/17 12:32 Urine Random Creatinine 92mg/dL (22-328) Urine Random Total Protein > 600mg/dL (0-15) Urinalysis Comment None Neutrophils (%) (Auto) 88.4% (40-74) Lymphocytes (%) (Auto) 4.5% (14-46) Monocytes (%) (Auto) 6.6% (4-12) Eosinophils (%) (Auto) 0.2% (0-5) Basophils (%) (Auto) 0.1% (0-3) Erythrocyte Sedimentation Rate 38mm/hr (0-15) Hemoglobin A1c 6.3% (4.8-5.6) C-Reactive Protein 8.1mg/dL (0.0-0.5) Streptozyme 362.0IU/mL (0.0-200.0) Lactic Acid Level 0.6mmol/L (0.4-2.0) Test 05/08/17 02:30 05/08/17 05:55 05/09/17 06:07 Urine Color Dark yellow (YELLOW) Urine Appearance Slightly cloudy Urine pH 5.5 (5.0-8.0) Urine Specific [place] 1.010 (1.003-1.035) Urine Protein >300mg/dL (NEG,TRACE) Urine Glucose (UA) Negativemg/dL (NEGATIVE) Urine Ketones Negativemg/dL (NEGATIVE) Urine Occult Blood Large (NEGATIVE) Urine Nitrite Positive (NEGATIVE) Urine Bilirubin Negative (NEGATIVE) Urine Urobilinogen Normalmg/dL (NORMAL) Urine Leukocyte Esterase Trace (NEGATIVE) Urine RBC Packed/hpf (0-2) Urine WBC 11-50/hpf (0-5) Urine Epithelial Cells Few/hpf (NONE-MOD) Urine Crystals None seen (NONE SEEN) Urine Bacteria Moderate/hpf (NONE-FEW) Urine Hyaline Casts None/lpf (NONE) Urine Granular Casts None seen (NONE SEEN) Urine Waxy Casts None seen (NONE SEEN) Urine Red Blood Cell Casts None seen (NONE SEEN) Urine White Blood Cell Casts None seen (NONE SEEN) Urine Mucus None seen (None Seen) Urine Trichomonas None seen (NONE SEEN) Urine Yeast None (NONE SEEN) Urine Culture Reflexed Indicated Urine Random Sodium 36mEq/L Urine Urea Nitrogen 242mg/dL (Not Estab.) Phosphorus Level 7.0mg/dL (2.5-4.9) Magnesium Level 1.9mg/dL (1.6-2.6) Total Bilirubin 0.2mg/dL (0.0-1.2) Aspartate Amino Transf (AST/SGOT) 18U/L (0-50) Alanine Aminotransferase (ALT/SGPT) 19U/L (0-44) Alkaline Phosphatase 63U/L (25-150) Total Protein 6.9g/dL (6.4-8.4) Albumin 2.7g/dL (3.4-5.0) Procalcitonin 2.23ng/mL (0.00-0.08) Complement C3 147mg/dL (82-167) Complement C4 23mg/dL (14-44) White Blood Count 7.6th/mm3 (3.8-10.1) Red Blood Count 3.89mil/mm3 (4.40-5.80) Hemoglobin 10.4g/dL (13.8-17.2) Hematocrit 33.7% (41.0-50.0) Mean Corpuscular Volume 86.6fL (81-100) Mean Corpuscular Hemoglobin 26.7pg (27.0-35.0) Mean Corpuscular Hemoglobin Concent 30.9% (32.0-37.0) Red Cell Distribution Width 15.2% (12.3-15.4) Platelet Count 259bil/L (150-400) Hold Purple Top Tube Received (Received) Sodium Level 145mEq/L (134-144) Potassium Level 5.1mEq/L (3.5-5.2) Chloride Level 109mEq/L (97-108) Carbon Dioxide Level 24mmol/L (18-29) Blood Urea Nitrogen 33mg/dL (6-24) Creatinine 2.83mg/dL (0.76-1.27) Estimat Glomerular Filtration Rate 26mL/min (>59) Glucose Level 113mg/dL (60-99) Calcium Level 8.6mg/dL (8.5-10.1) Hold Alum Bank Top Tube Received (Received) Discharge Medications Discharge Medications Amlodipine (Amlodipine) 5 Mg Tablet 5 MG PO DAILY Prescribed by: MILI OBRIEN DO Cephalexin (Keflex) 500 Mg Capsule 500 MG PO QID Prescribed by: MILI OBRIEN DO Clindamycin (Clindamycin) 300 Mg Capsule 300 MG PO BID Prescribed by: MILI OBRIEN DO Lactobacillus Acidophilus (Acidophilus) 1 Each Capsule 1 EACH PO BID Prescribed by: MILI OBRIEN DO Sertraline HCl (Sertraline) 100 Mg Tablet 150 MG PO DAILY (Reported) As needed Gabapentin (Gabapentin) 600 Mg Tablet 600 MG PO BID PRN PRN For Pain (Reported) Polyethylene Glycol 3350 (Miralax) 17 Gm Powd.pack 17 GM PO DAILY PRN PRN For Constipation Prescribed by: MILI OBRIEN DO oxyCODONE (oxyCODONE) 10 Mg Tablet 20 MG PO Q4H PRN PRN For Pain (Reported) Additional med instructions clindamycin is indefinitely Dr. Eddy discussed with the patient the idea of using Hibiclens to cleanse his lower legs below the knee about three times a week while he is in the shower in hopes of perhaps forestalling additional infections. Please continue to pursue Gastric Bypass surgery Followup Plan Follow-up plan F/U with Dr. Samayoa/Dr Hernandez on 05/12/17 at their clinic[facility] F/U with PCP in 2 weeks Discharge Diet: Heart Healthy Discharge Activity: No restrictions Time spent >30 min Mili Obrien DO May 09, 2017 11:14
== END 2017-05-09 12:23 | disposition home or self-care (01) | DRG 872 ==
LOC: SED 17:31 → OSC 21:16 → OBSVTOIN 21:16
PROVIDERS: ADMIT Hospitalist; ATTEND Hospitalist
DX: A41.9 Sepsis, unspecified organism (principal); L03.116 Cellulitis of left lower limb; Z68.45 Body mass index [BMI] 70 or greater, adult; E87.2 Acidosis; N17.9 Acute kidney failure, unspecified; L97.829 Non-pressure chronic ulcer of other part of left lower leg with unspecified severity; E66.01 Morbid (severe) obesity due to excess calories; R73.09 Other abnormal glucose; D72.829 Elevated white blood cell count, unspecified; F41.9 Anxiety disorder, unspecified; F32.9 Major depressive disorder, single episode, unspecified; G89.29 Other chronic pain; Z79.84 Long term (current) use of oral hypoglycemic drugs; B95.2 Enterococcus as the cause of diseases classified elsewhere; N18.9 Chronic kidney disease, unspecified; I12.9 Hypertensive chronic kidney disease with stage 1 through stage 4 chronic kidney disease, or unspecified chronic kidney disease; I83.028 Varicose veins of left lower extremity with ulcer other part of lower leg; R31.9 Hematuria, unspecified

== ENCOUNTER 2017-05-15 09:54 | Observation (INO) | payer MEDICARE ==
[~2017-05-15] VITALS: Ht 180.3 cm; Wt 243.0 kg
[~2017-05-15 09:54] MED LIST changes: +AMLO5TAB2 PO; +CEPH-512 PO; -CEPH500C PO; +LACT1CAP26 PO; -LISI10TA PO; +POLY17PO6 PO
[2017-05-15 09:59] VITALS: BP 160/86; PULSE 89; RESP 29; O2SAT 92
--- NOTE | 2017-05-15 10:09 | ED.REPORT ---
HPI-General Illness Date of Service May 15, 2017 ED Provider: Dann Wisdom MD The patient is a 42 year old male with history of recurrent right lower extremity cellulitis, severe lymphedema of right lower extremity, severe morbid obesity, hypertension, chronic pain with narcotic dependence, obstructive sleep apnea, fibromyalgia, arthritis, depression, and anxiety, who presents to the emergency department complaining of a productive cough that began 5 days ago. He has also noticed nausea, myalgias, and diffuse weakness. He has noticed shortness of breath with coughing but not independent of this. He denies fever, chills, chest pain, vomiting, diarrhea or dysuria. He was admitted to the hospital for sepsis and cellulitis for 3 days and was discharged home on the . Nursing Notes Stated Complaint: SHORT OF BREATH/COUGH Chief Complaint: Respiratory Complaints Nursing Notes Reviewed: Yes Allergies: Coded Allergies: linezolid (Verified Allergy, Severe, Hives, rash, itching, 05/06/17) levofloxacin (Verified Allergy, Unknown, 05/06/17) vancomycin (Verified Adverse Reaction, Intermediate, "Kidneys Shut Down", 05/06/17) Scheduled Amlodipine (Amlodipine) 5 Mg Tablet 5 MG PO DAILY Cephalexin (Keflex) 500 Mg Capsule 500 MG PO QID Clindamycin (Clindamycin) 300 Mg Capsule 300 MG PO BID Sertraline HCl (Sertraline) 100 Mg Tablet 150 MG PO DAILY Scheduled PRN Gabapentin (Gabapentin) 600 Mg Tablet 600 MG PO BID PRN PRN For Pain oxyCODONE (oxyCODONE) 10 Mg Tablet 20 MG PO Q4H PRN PRN For Pain General Time Seen by MD: 10:08 Chief Complaint Cough Hx Obtained From: Patient Arrived By: Walk-in Sudden in Onset?: No Onset Occurred: 5 days ago Symptom Duration: Since onset Severity: Current: Moderate Severity: Maximum: Moderate Recent Healthcare: Recent doctor visit, Recent hospitalization Similar Sx Previous: No Past Medical History Past Medical History Notes: Patient with multiple admissions for cellulitis Past Medical History 1. Recurrent cellulitis right lower extremity, also hx of abdominal cellulitis 2. Severe lymphedema of right lower extremity greater than left. 3. Severe Morbid obesity with BMI of 80.9 4. Hypertension. 5. Chronic pain with narcotic dependence. 6. Seasonal allergies. 7. Obstructive sleep apnea. CPAP intolerant. 8. Fibromyalgia. 9. Arthritis 10. Depression/Anxiety 11. Venous insufficiency of the lower extremities No hx of MRSA Past Surgical History Hernia repair Reports: Cholecystectomy Family History Diabetes Rheumatoid arthritis Hypertension Cancer No history of TB Smoking History Never Smoker Social History Uses mobility scooter Alcohol Use: Denies alcohol use Drug Use: Denies drug use Other Social History: , Local resident Ambulatory Status Wheelchair Review of Systems Full Review of Systems Constitutional: Reports: Weakness - generalized, Denies: Fever Respiratory: Reports: Prod cough, clear, Shortness of breath (with coughing) Cardiovascular: Denies: Chest pain GI: Reports: Nausea, Denies: Diarrhea, Vomiting Male: Denies Dysuria Musculoskeletal: Reports: Myalgia Complete sys rev & neg: except as marked. Physical Exam Nursing note and vitals reviewed. Constitutional: Well-developed, well-nourished. Not diaphoretic. Head: Normocephalic and atraumatic. Mouth/Throat: Oropharynx is clear and moist. No oropharyngeal exudate. Eyes: EOM are normal. Pupils are equal, round, and reactive to light. Neck: Supple, no tracheal deviation. Cardiovascular: Normal rate, regular rhythm. Equal and intact distal pulses throughout. Pulmonary/Chest: No respiratory distress. There is a small amount of mild crackles at the right base. Abdominal: Soft. No distension. There is no tenderness, rebound, or guarding. Bowel sounds present. Musculoskeletal: Range of motion grossly intact, moving all extremities. No edema or tenderness appreciated. Lower extremities: Chronic venous stasis changes. No signs of cellulitis or other rashes at this time. Neurological: AOx3. Grossly nonfocal exam. Strength and sensation intact and equal to bilateral upper and lower extremities. Skin: Warm and dry, no rashes or pallor appreciated. Psychiatric: Appropriate mood and affect. Behavior appears normal. Vital Signs Vital Signs Date Time Temp Pulse Resp B/P Pulse Ox O2 Delivery O2 Flow Rate FiO2 05/15/17 12:08 93 Room Air 05/15/17 11:02 94 Room Air 05/15/17 10:27 36.8 85 22 134/73 92 Room Air 05/15/17 09:59 36.6 89 29 160/86 92 Room Air Initial VS: Reviewed Interpretation & Diagnostics Lab Results Interpretation Result Diagram: 05/15/17 1310 05/15/17 1310 Test 05/15/17 13:10 White Blood Count 8.9th/mm3 (3.8-10.1) Red Blood Count 4.12mil/mm3 (4.40-5.80) Hemoglobin 10.8g/dL (13.8-17.2) Hematocrit 34.6% (41.0-50.0) Mean Corpuscular Volume 84.0fL (81-100) Mean Corpuscular Hemoglobin 26.2pg (27.0-35.0) Mean Corpuscular Hemoglobin Concent 31.2% (32.0-37.0) Red Cell Distribution Width 14.8% (12.3-15.4) Platelet Count 300bil/L (150-400) Neutrophils (%) (Auto) 71.5% (40-74) Lymphocytes (%) (Auto) 16.4% (14-46) Monocytes (%) (Auto) 8.7% (4-12) Eosinophils (%) (Auto) 3.0% (0-5) Basophils (%) (Auto) 0.2% (0-3) Prothrombin Time 10.9sec (8.1-12.5) Prothromb Time International Ratio 1.02ratio Activated Partial Thromboplast Time 26.5sec (22.8-33.0) Sodium Level 141mEq/L (134-144) Potassium Level 5.0mEq/L (3.5-5.2) Chloride Level 105mEq/L (97-108) Carbon Dioxide Level 22mmol/L (18-29) Blood Urea Nitrogen 26mg/dL (6-24) Creatinine 2.57mg/dL (0.76-1.27) Estimat Glomerular Filtration Rate 29mL/min (>59) Glucose Level 103mg/dL (60-99) Lactic Acid Level 0.7mmol/L (0.4-2.0) Calcium Level 9.1mg/dL (8.5-10.1) Magnesium Level 1.9mg/dL (1.6-2.6) Total Bilirubin 0.3mg/dL (0.0-1.2) Aspartate Amino Transf (AST/SGOT) 20U/L (0-50) Alanine Aminotransferase (ALT/SGPT) 14U/L (0-44) Alkaline Phosphatase 69U/L (25-150) Troponin T < 0.010ug/L (0.0-0.011) Total Protein 8.5g/dL (6.4-8.4) Albumin 3.1g/dL (3.4-5.0) Procalcitonin 0.18ng/mL (0.00-0.08) ECG Interpretation ECG Interpretation: Sinus rhythm with a rate of 78 Prolonged [place] interval Time: 13:23 Interpreted by: ED physician X-Ray Chest Interpretation Chest Xray Interpretation: IMPRESSION: 1. Left lower lobe pneumonia. 2. Prominent interstitial markings within the perihilar regions may be related to mild vascular congestion. Please correlate clinically. Dictated by: Arie Blake M.D. on 05/15/2017 at 10:50 Interpretation / Wet Read by: Interpret - Radiologist Re-Eval/Medical Decision Med Decision/Clinical Course 42-year-old male with complex past medical history including morbid obesity, recent admission for cellulitis presenting to the ED for evaluation of progressive cough. CXR shows left lower lobe pneumonia. No chest pain, no pleuritic symptoms. Given his recent admission and multiple comorbidities, plan admission to the hospital for IV antibiotics to treat HCAP. Antibiotic therapy initiated in the ED. Plan for admission was discussed with the patient - agreeable to the plan as stated, no further questions. Source of Hx: Old records Time of Eval: 10:53 Re-Evaluation/Progress Note: Discussed plan for a chest x-ray, treatment, and probable discharge on antibiotics. Time of Eval: 12:38 Re-Evaluation/Progress Note: Rechecked the patient. Discussed plan for admission. All questions were addressed. Consultation : Referral / Consult Name: Ronel Sanchez MD Consulted With: Hospitalist Requested Call at: 12:42 Call Returned at: 13:52 Spool Cleaner Hand: Will see patient, Agrees with eval, Agrees with plan, Accepts admit Counseled Regarding: Diagnosis, Lab results, Need for admission Discharge & Departure Primary Impression: HCAP (healthcare-associated pneumonia) Disposition: ADMITTED TO HOSPITAL Discharge Condition All VS Reviewed: Yes Condition: Stable Referrals: Michael Walton DO (PCP) Scribe Attestation Portions of this note were transcribed by Sally Lama. I, Dr. Wisdom personally performed the history, physical exam and medical decision-making; I reviewed and confirmed the accuracy of the information in the transcribed note. Signed by: Geoff Doll, 05/15/2017 at 1400. . copies to: Michael Walton William B MD May 15, 2017 10:09 Sally Lama May 15, 2017 10:11
[2017-05-15 10:27] VITALS: BP 134/73; PULSE 85; RESP 22; O2SAT 92
[2017-05-15 11:02] VITALS: O2SAT 94
--- NOTE | 2017-05-15 11:53 | DRSVH ---
PROCEDURE: X-RAY CHEST, TWO VIEWS ([id number]) INDICATIONS: productive cough, recent admission TECHNIQUE: 2 views of the chest were acquired. COMPARISON: [facility], CR, XR CHEST 1VW (PORTABLE), 02/12/2017, 15:16. FINDINGS: Surgical changes and devices: None. Lungs and pleura: There are low lung volumes. Elevation of the right diaphragm is similar to the david or study. There is airspace disease identified within in the retrocardiac region at the left lung ba se. Interstitial prominence within the bilateral hilar regions is noted. There is no large effusion or definite pneumothorax. Mediastinum: Mediastinal contours are normal. Heart size is normal. Bones and chest wall: No suspicious bony abnormalities. Soft tissues appear unremarkable. IMPRESSION: 1. Left lower lobe pneumonia. 2. Prominent interstitial markings within the perihilar regions may be related to mild vascular lance estion. Please correlate clinically. Dictated by: Arie Blake M.D. on 05/15/2017 at 10:50 Approved by: Arie Blake M.D. on 05/15/2017 at 10:51
[2017-05-15 12:08] VITALS: O2SAT 93
[2017-05-15] MEDS ORDERED: 0.9% Sodium Chloride 1,000 ML IV ONE (12:29)
[2017-05-15] MEDS ORDERED: Cefepime Inj 2,000 MG in Dextrose 5% Minibag Plus 100 ML IV ONE (12:30)
[2017-05-15 13:36] LABS: BASOPHILS % (AUTO) 0.2 % (0-3); MONOCYTES % (AUTO) 8.7 % (4-12); Mean Corpuscular Hemoglobin 26.2 pg (27.0-35.0); NEUTROPHILS % (AUTO) 71.5 % (40-74); Platelet Count 300 bil/L (150-400)
[2017-05-15 13:47] VITALS: BP 158/69; PULSE 75; RESP 22; O2SAT 94
[2017-05-15 13:50] LABS: INR 1.02 ratio
[2017-05-15] MEDS ORDERED: Ondansetron 2 mg/mL 2 mL Inj IVPUSH PRN (13:55)
[2017-05-15 14:11] LABS: TROPONIN T < 0.010 ug/L (0.0-0.011)
[2017-05-15 14:17] LABS: Magnesium 1.9 mg/dL (1.6-2.6)
--- NOTE | 2017-05-15 14:40 | PCM.HPMED ---
Subjective Date of Service May 15, 2017 Primary Provider: Admitting Physician: Ronel Sanchez MD Primary Care Physician: Michael Walton DO Attending Physician: Ronel Sanchez MD Chief Complaint: Worsening cough History of Present Illness: 42-year-old male with severe morbid obesity, BMI80, metabolic syndrome, recurrent cellulitis, hypertensive nephrosclerosis, segmental sclerosis, ENEDINA, severe lymphedema, recent admission with sepsis secondary to cellulitis 05/06- , p/w worsening cough since patient left hospital 5days ago. pt stated noticing dry cough, mild white sputum, cough was not controlled, decided to come. denied purulent sputum, sob, fever chills. pt does have underling ANGEL with obesity. Pt didn't particularly feel worse but thought it's worth checking as cough continued. denied mylagia, arthralgia. pt still taking Keflex and clindamycin orally, still has 5days left. denied sick contact. pt was scheduled for sleep study in near future. ED VSS, mildly [id number], tachpyneic, 22, HR89, 92-94% on RA. CXR showed probable LLL PNA, although it was unclear, pt received cefepime. labs showed normal wbc, unremarkable lactate, PCT. pt stated that he didn't particularly have labored breathing when he came in,breathing seems similar. denied pain on LLE, thinks cellulitis is clearing up. Review of Systems: Pertinent positives as noted in history of present illness. All other systems were reviewed and are negative Allergies Coded Allergies: linezolid (Verified Allergy, Severe, Hives, rash, itching, 05/06/17) levofloxacin (Verified Allergy, Unknown, 05/06/17) vancomycin (Verified Adverse Reaction, Intermediate, "Kidneys Shut Down", 05/06/17) Home Medications Scheduled Amlodipine (Amlodipine) 5 Mg Tablet 5 MG PO DAILY Cephalexin (Keflex) 500 Mg Capsule 500 MG PO QID Clindamycin (Clindamycin) 300 Mg Capsule 300 MG PO BID Sertraline HCl (Sertraline) 100 Mg Tablet 150 MG PO DAILY Scheduled PRN Gabapentin (Gabapentin) 600 Mg Tablet 600 MG PO BID PRN PRN For Pain oxyCODONE (oxyCODONE) 10 Mg Tablet 20 MG PO Q4H PRN PRN For Pain PMH 1. Recurrent cellulitis right lower extremity, also hx of abdominal cellulitis 2. Severe lymphedema of right lower extremity greater than left. 3. Severe Morbid obesity with BMI of 80.9 4. Hypertension. 5. Chronic pain with narcotic dependence. 6. Seasonal allergies. 7. Obstructive sleep apnea. CPAP intolerant. 8. Fibromyalgia. 9. Arthritis 10. Depression/Anxiety 11. Venous insufficiency of the lower extremities 12. Nephrotic syndrome secondary to obesity with related focal segmental sclerosis 13. Hypertensive nephrosclerosis 14. Metabolic syndrome 15. Hyperuricemia 16. Venous insufficiency 17. Erectile dysfunction . Surgical History Hernia repair Cholecystectomy Family History Father - diabetes Mother - Hypertension, diabetes, stroke Social History Hx Alcohol Use: No Hx Substance Use: No Hx Tobacco Use: No Smoking Status: Never Smoker Exam Vital Signs Vital Sign - Last Date Time Temp Pulse Resp B/P Pulse Ox O2 Delivery O2 Flow Rate FiO2 05/15/17 13:47 36.5 75 22 158/69 94 Room Air Exam NAD, comfortably laying down on the bed no accessory muscle use, no JVD, MMM, no LAD RRR, nl s1, s2 no mrg decreased BS bilaterally due to body habitus S,ND,NT,normoactive BS+ large abdominal pannus, chronic edema, non-pitting, nontender Lab and Diagnostics Result Diagram: 05/15/17 1310 05/15/17 1310 Assessment & Plan Acute, active mild cough, sputum, POA, Spo2 at baseline, wbc/PCT unremarkable. CXR is somewhat equivocal although it was read as PNA. -will get viral PCR,monitor respiratory status -possible d/c later today if pt remains stable Chronic, seems stable Recurrent cellulitis right lower extremity, also hx of abdominal cellulitis, continue abx Severe lymphedema of right lower extremity greater than left. Severe Morbid obesity with BMI of 80.9 Hypertension. Chronic pain with narcotic dependence. Seasonal allergies. Obstructive sleep apnea. CPAP intolerant. Fibromyalgia. Arthritis Depression/Anxiety Venous insufficiency of the lower extremities Nephrotic syndrome secondary to obesity with related focal segmental sclerosis Hypertensive nephrosclerosis Metabolic syndrome Hyperuricemia Venous insufficiency Erectile dysfunction Dispo: Patient is admitted under observation status with expectation that she will be discharged within 24-48 hours, diet:general dvt ppx:HSQ Full code Time spent 65min Ronel Sanchez MD May 15, 2017 14:40 He wanted to leave AMA on 05/09/17, gave him scripts for Keflex and clindamycin. # Chronic Hematuria, present on admission, stable Greater than 50 red blood cells per high-powered field Review of previous UAs shows this to be consistent. Will consider urology/nephrology consultation with any change in creatinine or new symptoms. # Chronic Anxiety and depression, POA,stable, Continue home sertraline 150 mg daily # Chronic pain and fibromyalgia, present on admission Continue home medication of oxycodone 20 mg every 4 hours Hold for somnolence, respiratory depression Continue home gabapentin 600 mg twice a day Chronic Hypertension, present on admission, uncontrolled -- Note home med Lisinopril changed to amlodipine per nephro recommendation We will continue to monitor. # Lactic acidosis, present on admission, resolved [place] to be secondary to sepsis, resolved after IV fluid hydration # Elevated blood glucose, present on admission, resolved Blood glucose 115 Previous hemoglobin A1c 6.6 on 02/12/2017 Diabetic constant carb diet Diabetes education Recheck A1c Pain management oxycodone 20 mg every 4 hours, gabapentin as above Bowel regimen as needed DVT prophylaxis subcutaneous heparin every 8 hours Disposition: Patient admitted under inpatient status with expected length of stay > 2 midnights for severity of present symptoms, complexities of treatment plan and risk for adverse events. PAULA michaud is p[laced for home wound care consideration. CODE STATUS: Full code Dispo: Patient is admitted under observation status with expectation that she will be discharged within 24-48 hours, diet:general dvt ppx:HSQ Full code Ronel Sanchez MD May 15, 2017 14:40
[2017-05-15 15:00] VITALS: BP 148/81; PULSE 80; RESP 20; O2SAT 93
--- NOTE | 2017-05-15 18:31 | NUR ---
Admit Pt admitted to [facility] on Observation status pending PCR results. Vitals stable, Pt has unrelenting cough, sputum sent. Pt reporting BLE and knee pain 05/02. Dr Daniel rainey and home pain meds were ordered. Pt aware of plan to discharge following results of PCR viral panel.
--- NOTE | 2017-05-15 19:04 | PCM.DIMED ---
Discharge Instructions Date of Service May 15, 2017 Dates of Hospitalization May 15, 2017 at 13:18 Discharge Diagnosis Discharge Diagnosis probable URI, Diet Discharge Diet: No restrictions Activity Discharge Activity: No restrictions Call your provider Call your provider for: Fever or Chills, Shortness of breath Patient Instructions Follow-up with PCP in: 2 weeks Ronel Sanchez MD May 15, 2017 19:04
--- NOTE | 2017-05-15 19:05 | NUR ---
JENISE explained and signed. Copy of BURDEN given to pt.
--- NOTE | 2017-05-15 22:01 | PCM.DC.MED ---
Discharge Summary Date of Service May 15, 2017 Dates of Hospitalization Date of Hospital Admission May 15, 2017 at 13:18 Date of Discharge: May 15, 2017 Providers: Admitting Physician: Ronel Sanchez MD Primary Care Physician: Michael Walton DO Attending Physician: Ronel Sanchez MD Diagnosis at Time of Discharge Diagnosis at Time of Discharge acute dx probable viral URI, chronic dx Recurrent cellulitis right lower extremity, also hx of abdominal cellulitis, Severe lymphedema of right lower extremity greater than left. Severe Morbid obesity with BMI of 80.9 Hypertension. Chronic pain with narcotic dependence. Seasonal allergies. Obstructive sleep apnea. CPAP intolerant. Fibromyalgia. Arthritis Depression/Anxiety Venous insufficiency of the lower extremities Nephrotic syndrome secondary to obesity with related focal segmental sclerosis Hypertensive nephrosclerosis Metabolic syndrome Hyperuricemia Venous insufficiency Erectile dysfunction Procedures XRay, CTs & MRIs PROCEDURE: X-RAY CHEST, TWO VIEWS ([id number]) INDICATIONS: productive cough, recent admission TECHNIQUE: 2 views of the chest were acquired. COMPARISON: [facility], CR, XR CHEST 1VW (PORTABLE), 02/12/2017, 15: 16. FINDINGS: Surgical changes and devices: None. Lungs and pleura: There are low lung volumes. Elevation of the right diaphragm is similar to the prior study. There is airspace disease identified within in the retrocardiac region at the left lung base. Interstitial prominence within the bilateral hilar regions is noted. There is no large effusion or definite pneumothorax. Mediastinum: Mediastinal contours are normal. Heart size is normal. Bones and chest wall: No suspicious bony abnormalities. Soft tissues appear unremarkable. IMPRESSION: 1. Left lower lobe pneumonia. 2. Prominent interstitial markings within the perihilar regions may be related to mild vascular congestion. Please correlate clinically. Dictated by: Arie Blake M.D. on 05/15/2017 at 10:50 Approved by: Arie Blake M.D. on 05/15/2017 at 10:51 Brief History HPI obtained on 05/15 42-year-old male with severe morbid obesity, BMI80, metabolic syndrome, recurrent cellulitis, hypertensive nephrosclerosis, segmental sclerosis, ENEDINA, severe lymphedema, recent admission with sepsis secondary to cellulitis 05/06- , p/w worsening cough since patient left hospital 5days ago. pt stated noticing dry cough, mild white sputum, cough was not controlled, decided to come. denied purulent sputum, sob, fever chills. pt does have underling ANGEL with obesity. Pt didn't particularly feel worse but thought it's worth checking as cough continued. denied mylagia, arthralgia. pt still taking Keflex and clindamycin orally, still has 5days left. denied sick contact. pt was scheduled for sleep study in near future. ED VSS, mildly [id number], tachpyneic, 22, HR89, 92-94% on RA. CXR showed probable LLL PNA, although it was unclear, pt received cefepime. labs showed normal wbc, unremarkable lactate, PCT. pt stated that he didn't particularly have labored breathing when he came in,breathing seems similar. denied pain on LLE, thinks cellulitis is clearing up. Hospital Course Acute dx mild cough, sputum, POA, Spo2 at baseline, wbc/PCT unremarkable. CXR is somewhat equivocal although it was read as PNA. pt only stayed in the hospital for several hours for observation. respiratory PCR came back negative. pt didn't require O2 supplement, maintained SpO2 well. Given unremarkable labs and sx, it's still possible that pt had viral URI,but almost clearing up. Pt was discharged to home, plan to use OTC cough syrup and continue abx for cellulitis Chronic, seems stable Recurrent cellulitis right lower extremity, also hx of abdominal cellulitis, continue abx Severe lymphedema of right lower extremity greater than left. Severe Morbid obesity with BMI of 80.9 Hypertension. Chronic pain with narcotic dependence. Seasonal allergies. Obstructive sleep apnea. CPAP intolerant. Fibromyalgia. Arthritis Depression/Anxiety Venous insufficiency of the lower extremities Nephrotic syndrome secondary to obesity with related focal segmental sclerosis Hypertensive nephrosclerosis Metabolic syndrome Hyperuricemia Venous insufficiency Erectile dysfunction Exam Vital Signs (Last) Date Time Temp Pulse Resp B/P Pulse Ox O2 Delivery O2 Flow Rate FiO2 05/15/17 15:00 36.4 80 20 148/81 93 Room Air Exam NAD, comfortably laying down on the bed no accessory muscle use, no JVD, MMM, no LAD RRR, nl s1, s2 no mrg decreased BS bilaterally due to body habitus S,ND,NT,normoactive BS+ large abdominal pannus, chronic venous stasis, edema, non-pitting, nontender Test 05/15/17 13:10 White Blood Count 8.9th/mm3 (3.8-10.1) Red Blood Count 4.12mil/mm3 (4.40-5.80) Hemoglobin 10.8g/dL (13.8-17.2) Hematocrit 34.6% (41.0-50.0) Mean Corpuscular Volume 84.0fL (81-100) Mean Corpuscular Hemoglobin 26.2pg (27.0-35.0) Mean Corpuscular Hemoglobin Concent 31.2% (32.0-37.0) Red Cell Distribution Width 14.8% (12.3-15.4) Platelet Count 300bil/L (150-400) Neutrophils (%) (Auto) 71.5% (40-74) Lymphocytes (%) (Auto) 16.4% (14-46) Monocytes (%) (Auto) 8.7% (4-12) Eosinophils (%) (Auto) 3.0% (0-5) Basophils (%) (Auto) 0.2% (0-3) Prothrombin Time 10.9sec (8.1-12.5) Prothromb Time International Ratio 1.02ratio Activated Partial Thromboplast Time 26.5sec (22.8-33.0) Sodium Level 141mEq/L (134-144) Potassium Level 5.0mEq/L (3.5-5.2) Chloride Level 105mEq/L (97-108) Carbon Dioxide Level 22mmol/L (18-29) Blood Urea Nitrogen 26mg/dL (6-24) Creatinine 2.57mg/dL (0.76-1.27) Estimat Glomerular Filtration Rate 29mL/min (>59) Glucose Level 103mg/dL (60-99) Lactic Acid Level 0.7mmol/L (0.4-2.0) Calcium Level 9.1mg/dL (8.5-10.1) Magnesium Level 1.9mg/dL (1.6-2.6) Total Bilirubin 0.3mg/dL (0.0-1.2) Aspartate Amino Transf (AST/SGOT) 20U/L (0-50) Alanine Aminotransferase (ALT/SGPT) 14U/L (0-44) Alkaline Phosphatase 69U/L (25-150) Troponin T < 0.010ug/L (0.0-0.011) Total Protein 8.5g/dL (6.4-8.4) Albumin 3.1g/dL (3.4-5.0) Procalcitonin 0.18ng/mL (0.00-0.08) Discharge Medications Discharge Medications Amlodipine (Amlodipine) 5 Mg Tablet 5 MG PO DAILY Prescribed by: ILA OBRIEN DO Cephalexin (Keflex) 500 Mg Capsule 500 MG PO QID Prescribed by: ILA OBRIEN DO Clindamycin (Clindamycin) 300 Mg Capsule 300 MG PO BID Prescribed by: ILA OBRIEN DO Sertraline HCl (Sertraline) 100 Mg Tablet 150 MG PO DAILY (Reported) As needed Gabapentin (Gabapentin) 600 Mg Tablet 600 MG PO BID PRN PRN For Pain (Reported) oxyCODONE (oxyCODONE) 10 Mg Tablet 20 MG PO Q4H PRN PRN For Pain (Reported) Followup Plan Disposition: home Discharge Diet: No restrictions Discharge Activity: No restrictions Follow-up with PCP in: 2 weeks Time spent 65min Ronel Sanchez MD May 15, 2017 22:01
== END 2017-05-15 19:23 | disposition home or self-care (01) ==
LOC: SED 09:54 → MPC 13:18 → OSC 13:18 → INTOOBSV 13:18
PROVIDERS: ADMIT Internal Medicine; ATTEND Internal Medicine
DX: J06.9 Acute upper respiratory infection, unspecified (principal); L03.116 Cellulitis of left lower limb; L03.115 Cellulitis of right lower limb; E66.01 Morbid (severe) obesity due to excess calories; I12.9 Hypertensive chronic kidney disease with stage 1 through stage 4 chronic kidney disease, or unspecified chronic kidney disease; N18.9 Chronic kidney disease, unspecified; I87.2 Venous insufficiency (chronic) (peripheral); G89.29 Other chronic pain; R06.02 Shortness of breath; R60.0 Localized edema; G47.33 Obstructive sleep apnea (adult) (pediatric); J18.8 Other pneumonia, unspecified organism; M79.7 Fibromyalgia; M19.90 Unspecified osteoarthritis, unspecified site; F41.8 Other specified anxiety disorders; R59.1 Generalized enlarged lymph nodes; Z88.8 Allergy status to other drugs, medicaments and biological substances; Z68.45 Body mass index [BMI] 70 or greater, adult; Z79.891 Long term (current) use of opiate analgesic
CPT/HCPCS: 36415; 71020; 80053; 83605; 83735; 84145; 84484; 85025; 85610; 85730; 87040; 87070; 87205; 87633; 93005; 96365; 99285; G0378; J0692; J7030

== ENCOUNTER 2017-06-07 02:17 | Inpatient (IN) | payer MEDICARE ==
[~2017-06-07] VITALS: Ht 180.3 cm; Wt 247.7 kg
[2017-06-07] VITALS (9 sets, daily range): BP systolic 102–183; BP diastolic 44–93; PULSE 38–128; RESP 24–38; O2SAT 93–98
[~2017-06-07 02:17] MED LIST changes: -LACT1CAP26 PO; -POLY17PO6 PO
--- NOTE | 2017-06-07 02:32 | ED.REPORT ---
HPI-Rash / Abscess Date of Service Jun 07, 2017 ED Provider: Chon Batista MD The pt is a 42 y/o male w/ a hx of cellulitis, sepsis and HTN presenting to the ED complaining of L leg tenderness. He also reports L groin soreness, hardening of the stomach around the groin area, fever, and chills. Denies nausea. He last took a Tylenol 30 minutes ago as well as a dose of oxycodone at 1530. The pt was diagnosed w/ panniculitis 4 days ago and is not on antibiotics currently. He was hospitalized a month ago for sepsis. Nursing Notes Stated Complaint: LEFT LEG PAIN Chief Complaint: General Complaint Nursing Notes Reviewed: Yes Allergies: Coded Allergies: linezolid (Verified Allergy, Severe, Hives, rash, itching, 06/07/17) levofloxacin (Verified Allergy, Unknown, 06/07/17) vancomycin (Verified Adverse Reaction, Intermediate, "Kidneys Shut Down", 06/07/17) Scheduled Amlodipine (Amlodipine) 5 Mg Tablet 5 MG PO DAILY Cephalexin (Keflex) 500 Mg Capsule 500 MG PO QID Clindamycin (Clindamycin) 300 Mg Capsule 300 MG PO BID Sertraline HCl (Sertraline) 100 Mg Tablet 150 MG PO DAILY Scheduled PRN Gabapentin (Gabapentin) 600 Mg Tablet 600 MG PO BID PRN PRN For Pain oxyCODONE (oxyCODONE) 10 Mg Tablet 20 MG PO Q4H PRN PRN For Pain General Time Seen by MD: 02:30 Chief Complaint Other (LLE pain ) Hx Obtained From: Patient Arrived By: Walk-in Recent Healthcare: No recent hospitalization, Recent doctor visit Past Medical History Past Medical History Notes: Patient with multiple admissions for cellulitis Past Medical History 1. Recurrent cellulitis right lower extremity, also hx of abdominal cellulitis 2. Severe lymphedema of right lower extremity greater than left. 3. Severe Morbid obesity with BMI of 80.9 4. Hypertension. 5. Chronic pain with narcotic dependence. 6. Seasonal allergies. 7. Obstructive sleep apnea. CPAP intolerant. 8. Fibromyalgia. 9. Arthritis 10. Depression/Anxiety 11. Venous insufficiency of the lower extremities No hx of MRSA Past Surgical History Hernia repair Reports: Cholecystectomy Family History Diabetes Rheumatoid arthritis Hypertension Cancer No history of TB Smoking History Never Smoker Social History Uses mobility scooter Alcohol Use: Denies alcohol use Drug Use: Denies drug use Other Social History: , Local resident Ambulatory Status Wheelchair Review of Systems "Hardening" of the stomach around the groin area Constitutional: Reports: Chills, Fever GI: Reports: Abdominal pain (L groin area ), Denies: Nausea Musculoskeletal: Reports: Extremity pain (L leg ) Complete sys rev & neg: except as marked. Physical Exam Initial Vital Signs Vital Signs (First) Date Time Temp Pulse Resp B/P Pulse Ox O2 Delivery O2 Flow Rate FiO2 06/07/17 02:30 37.2 104 29 183/93 Room Air 06/07/17 02:56 98 2 Initial VS: Reviewed, Vital signs abnormal Head / Eyes: Atraumatic, Normocephalic, PERRL ENT: Mucous membranes moist, Conjunctiva normal, No scleral icterus Neck: Supple, Non-tender, Full range of motion Respiratory: Breath sounds normal, Clear to auscultation, No respiratory distress Cardiovascular: Regular rate & rhythm, Heart sounds normal, Intact distal pulses Extremities: Vascular intact, Neuro intact Neurologic: Alert, Oriented, Nonfocal Psychiatric: Mood/affect normal, Behavior normal, Normal thought content General/Constitutional: Awake, Alert Appearance / Presentation: Positive: Obese, morbidly Shaking chills Skin: Warm, Dry, Intact Abdomen: No guarding, No palpable mass Induration, erythema, and tenderness on L side of abdomen Panniculitis abdomen Interpretation & Diagnostics Lab Results Interpretation Result Diagram: 06/07/17 0255 06/07/17 0255 Test 06/07/17 02:55 06/07/17 05:15 White Blood Count 15.2th/mm3 (3.8-10.1) Red Blood Count 4.10mil/mm3 (4.40-5.80) Hemoglobin 10.7g/dL (13.8-17.2) Hematocrit 35.2% (41.0-50.0) Mean Corpuscular Volume 85.9fL (81-100) Mean Corpuscular Hemoglobin 26.1pg (27.0-35.0) Mean Corpuscular Hemoglobin Concent 30.4% (32.0-37.0) Red Cell Distribution Width 14.7% (12.3-15.4) Platelet Count 282bil/L (150-400) Neutrophils (%) (Auto) 85.6% (40-74) Lymphocytes (%) (Auto) 6.5% (14-46) Monocytes (%) (Auto) 6.3% (4-12) Eosinophils (%) (Auto) 1.2% (0-5) Basophils (%) (Auto) 0.1% (0-3) Sodium Level 142mEq/L (134-144) Potassium Level 4.6mEq/L (3.5-5.2) Chloride Level 106mEq/L (97-108) Carbon Dioxide Level 22mmol/L (18-29) Blood Urea Nitrogen 27mg/dL (6-24) Creatinine 2.74mg/dL (0.76-1.27) Estimat Glomerular Filtration Rate 27mL/min (>59) Glucose Level 125mg/dL (60-99) Lactic Acid Level 1.7mmol/L (0.4-2.0) Calcium Level 8.8mg/dL (8.5-10.1) Magnesium Level 1.7mg/dL (1.6-2.6) Total Bilirubin 0.2mg/dL (0.0-1.2) Aspartate Amino Transf (AST/SGOT) 17U/L (0-50) Alanine Aminotransferase (ALT/SGPT) 11U/L (0-44) Alkaline Phosphatase 73U/L (25-150) Total Protein 8.4g/dL (6.4-8.4) Albumin 3.0g/dL (3.4-5.0) Urine Color Bloody (YELLOW) Urine Appearance Cloudy (CLEAR,HAZY) Urine pH 6.5 (5.0-8.0) Urine Specific [place] 1.020 (1.003-1.035) Urine Protein >300mg/dL (NEG,TRACE) Urine Glucose (UA) Negativemg/dL (NEGATIVE) Urine Ketones Negativemg/dL (NEGATIVE) Urine Occult Blood Large (NEGATIVE) Urine Nitrite Positive (NEGATIVE) Urine Bilirubin Negative (NEGATIVE) Urine Urobilinogen Normalmg/dL (NORMAL) Urine Leukocyte Esterase Trace (NEGATIVE) Urine RBC >50/hpf (0-2) Urine WBC 0-5/hpf (0-5) Urine Epithelial Cells Few/hpf (NONE-MOD) Urine Crystals None seen (NONE SEEN) Urine Bacteria Moderate/hpf (NONE-FEW) Urine Hyaline Casts None/lpf (NONE) Urine Granular Casts None seen (NONE SEEN) Urine Waxy Casts None seen (NONE SEEN) Urine Red Blood Cell Casts None seen (NONE SEEN) Urine White Blood Cell Casts None seen (NONE SEEN) Urine Mucus None seen (None Seen) Urine Trichomonas None seen (NONE SEEN) Urine Yeast None (NONE SEEN) Urinalysis Comment None Urine Culture Reflexed Indicated Lab Results Interpretation: Elevated white blood count, mild anemia, chronic kidney injury, no elevation of lactic acid ECG Interpretation ECG Interpretation: Rate 105 Sinus tachycardia Borderline prolonged IL interval Time: 03:03 Interpreted by: ED physician Re-Eval/Medical Decision Med Decision/Clinical Course 42-year-old male with a long history of super morbid obesity and recurrent cellulitis. He now presents with tender erythema of the left side of his pannus and his left lower leg. He has an elevated white count and it appears that these are probably infected. Cultures were not done. Antibiotic choosing will be difficult with this patient because of his allergies. He was given Rocephin 2 g IV and will be admitted to the hospitalist service. Source of Hx: Old records Counseled Regarding: Diagnosis, Lab results, Need for admission Discharge & Departure Impression: Primary Impression: Panniculitis Additional Impression: Cellulitis of left leg Disposition: ADMITTED TO HOSPITAL Discharge Condition All VS Reviewed: Yes Condition: Stable Referrals: Supa Alegria DO (PCP) Geoff Attestation Portions of this note were transcribed by Kevan Tanner. I, Dr. Batista personally performed the history, physical exam and medical decision-making; I reviewed and confirmed the accuracy of the information in the transcribed note. Signed by : Geoff Serrano, 06/07/17 and 0308. copies to: Supa Alegria Howard L MD Jun 07, 2017 02:31 Kevan Tanner Jun 07, 2017 03:08
[2017-06-07] MEDS ORDERED: 0.9% Sodium Chloride 1,000 ML IV ONE ×3 (02:35→17:55)
[2017-06-07 03:03] LABS: BASOPHILS % (AUTO) 0.1 % (0-3); EOSINOPHILS % (AUTO) 1.2 % (0-5); MONOCYTES % (AUTO) 6.3 % (4-12); Mean Corpuscular Hemoglobin 26.1 pg (27.0-35.0); Mean Corpuscular Volume 85.9 fL (81-100); NEUTROPHILS % (AUTO) 85.6 % (40-74); Platelet Count 282 bil/L (150-400)
[2017-06-07] MEDS: HYDROmorphone 1 mg/mL Inj IVPUSH PRN ×2 (03:17→07:39)
[2017-06-07 03:33] LABS: Magnesium 1.7 mg/dL (1.6-2.6)
[2017-06-07 05:59] LABS: APPEARANCE,URINE CLOUDY (CLEAR,HAZY); COLOR,URINE BLOODY (YELLOW); OCCULT BLOOD,URINE LARGE (NEGATIVE); PH,URINE 6.5 (5.0-8.0)
[2017-06-07 06:00] LABS: UROBILINOGEN,URINE NORMAL (NORMAL)
[2017-06-07] MEDS ORDERED: cefTRIAXone Inj 2,000 MG in Dextrose 5% Minibag Plus 50 ML IV ONE (06:45)
[2017-06-07] MEDS ORDERED: Ondansetron 2 mg/mL 2 mL Inj IVPUSH PRN (07:40)
[2017-06-07] MEDS ORDERED: Alum-Mag Hydrox-Simeth 30 mL Suspension PO PRN (07:40)
[2017-06-07] MEDS ORDERED: Polyethylene Glycol (PEG) 17 Gm Powder PO PRN (07:40)
[2017-06-07] MEDS ORDERED: LISI10TA PO (08:25)
--- NOTE | 2017-06-07 08:52 | NUR ---
ADMIT Admitted a 42/M into room 3018 following report from ED RN. Pt arrived via personal motorized scooter as is his preference due to dx of morbid obesity. Pt A&Ox4, stated he had just rec'd pain medication and stated pain "isn't too bad right now." Pt able to transfer from scooter to [facility] bed. He states he can take small steps but unable to amb long distances. Pt on 3L via NC for comfort. Tele placed, pt ST with HR in low 100's. Pt becomes very SOB with minimal activity, req extensive rest to catch his breath. Pt introduced to staff, call light/bed controls. Pannus noted to be reddened and skin firm. Pt reports area is tender. Pt voiding in urinal with assist, urine with hematuria, per pt "my kidneys shut down." Weight not obtained due to pt refusing to get OOB and stand on scale and bed scale not being zero'd. Bed in lowest, locked position and call light in reach.
[2017-06-07] MEDS: Heparin 5,000 Unit/mL Inj SUBQ SCH ×2 (09:30→17:05)
[2017-06-07] MEDS: HYDROmorphone 0.5 mg/0.5 mL iSecure Syringe IVPUSH PRN ×3 (13:08→22:28)
--- NOTE | 2017-06-07 16:08 | NUR ---
Social Work note - Initial Assessment Du Flannery is a 42 yr old admitted for cellulitis. E[place] reviewed: [place] [facility] [place]CP is Dr Alegria. No LTC or VA benefits. No DPOA - [employer] ADMINISTRATOR provided paperwork. Readmit score not available. See attached CM initial assessment. RED HAT LINUX ADMINISTRATOR met with pt - introduced D/C planning and explained SW role. Provided Discharge Planning checklist. Pt lives in [place] with his and teenage children. He uses an electric scooter at baseline. He also has a walker. He is dependent on his for some of his care and he goes to the wound care clinic for help with his recurrent cellulitis. Pt denies any needs - states that he is able to get his medications for home. [employer] HAT LINUX ADMINISTRATOR will continue to follow. Plan: Home with in [facility]. SHARATH Guillen Addendum: 06/07/17 at 1612 by SHALOM FLOREZ SS Amended: Links added.
--- NOTE | 2017-06-07 17:11 | PCM.HPMED ---
Subjective Date of Service Jun 07, 2017 Primary Provider: Admitting Physician: Nicole Steel MD Primary Care Physician: Supa Alegria DO Attending Physician: Nicole Steel MD Chief Complaint: chills, left groin and leg pain History of Present Illness: 42 year old morbidly obese male with history of recurrent leg cellulitis and sepsis, severe bilateral lymphedema, hypertension, rheumatoid arthritis, chronic pain, obstructive sleep apnea who presents this time with report of acute chills similar to his prior episodes of cellulitis and noticing new associated left groin soreness, hardening of the stomach around the groin area. He also notes that he was diagnosed w/ panniculitis 4 days ago and is not on antibiotics currently. He was hospitalized a month ago for sepsis. He received a dose of IV Ceftriaxone in ED. Review of Systems: Constitutional: Negative, except as otherwise mentioned in the history above. Ophthalmologic: Negative, except as otherwise mentioned in the history above. Cardiovascular: Negative, except as otherwise mentioned in the history above. Respiratory: Negative, except as otherwise mentioned in the history above. Gastrointestinal: Negative, except as otherwise mentioned in the history above. Genitourinary: Negative, except as otherwise mentioned in the history above. Musculoskeletal: Negative, except as otherwise mentioned in the history above. Neurological: Negative, except as otherwise mentioned in the history above. Psychiatric: Negative, except as otherwise mentioned in the history above. Hematologic/Lymphatic: Negative, except as otherwise mentioned in the history above. Allergic/Immunologic: Negative, except as otherwise mentioned in the history above. Allergies Coded Allergies: linezolid (Verified Allergy, Severe, Hives, rash, itching, 06/07/17) levofloxacin (Verified Allergy, Unknown, 06/07/17) vancomycin (Verified Adverse Reaction, Intermediate, "Kidneys Shut Down", 06/07/17) Home Medications Amlodipine (Amlodipine) 5 Mg Tablet 5 MG PO DAILY Cephalexin (Keflex) 500 Mg Capsule 500 MG PO QID Clindamycin (Clindamycin) 300 Mg Capsule 300 MG PO BID Sertraline HCl (Sertraline) 100 Mg Tablet 150 MG PO DAILY Gabapentin (Gabapentin) 600 Mg Tablet 600 MG PO BID PRN PRN For Pain oxyCODONE (oxyCODONE) 10 Mg Tablet 20 MG PO Q4H PRN PRN For Pain PMH Super morbid obesity with BMI of 80.9 Recurrent cellulitis and soft tissue infections of the lower extremities Lymphedema of the lower extremities Venous insufficiency of the lower extremities Hypertension Fibromyalgia Cardiac arthritis Chronic back pain Depression/anxiety Obstructive sleep apnea Rheumatoid arthritis Surgical History Cholecystectomy Hernia repair Family History Diabetes Rheumatoid arthritis Hypertension Cancer No history of TB Social History Hx Alcohol Use: No Hx Substance Use: No Hx Tobacco Use: No Smoking Status: Never Smoker Exam Vital Signs Vital Sign - Last Date Time Temp Pulse Resp B/P Pulse Ox O2 Delivery O2 Flow Rate FiO2 06/07/17 16:05 36.7 86 28 113/69 96 Nasal Cannula 3.00 Intake and Output 06/06/17 06/06/17 06/07/17 Cumulative From/Thru 15:00 23:00 07:00 06/07/17 02:30 - 06/07/17 05:41 Intake Total 1997 ml 1997 ml Balance 1997 ml 1997 ml Intake IV Total 1997 ml 1997 ml Exam General: Alert, Oriented X3, Cooperative, No acute Distress Eyes: PERRLA, Scleral Anicteric Mouth: Mouth Normal, Mucous Membranes Moist/[place] Neck: Supple, no Thyromegaly, trachea central. Chest & Lungs: Clear to auscultation & percussion, No adventitious breath sounds, no crackles, no wheeze Cardiovascular: distant heart sounds but Normal S1, Normal S2. Regular Rate/ Rhythm Pulses: Radial (present and equal), Dorsalis Pedi (present and equal) Abdomen: Soft, Non-tender, Non-distended, Normoactive bowel tones. Musculoskeletal: Unremarkable. Normal range of motion, no swollen or erythematous joints Extremities: Bilateral lower extremities----Evidence of chronic venous stasis changes , thickening of skin, very dry skin. Bilateral severe lymphedema.Both lower extremities tender to palpation (Left more than right) Skin: Abrasion noted on posterior side of left lower extremity. Erythema of abdominal pannus also noted Neurological: Grossly neurologically intact, Normal Speech, CN II-XII intact Lymphatic: Lymph nodes Cervical and Axillary not palpable. Psych: Calm, appropriate Lab and Diagnostics Result Diagram: 06/07/1725406/07/17254 Assessment & Plan 42 year old male Recurrent leg cellulitis and sepsis, severe bilateral lymphedema, hypertension, rheumatoid arthritis, chronic pain, obstructive sleep apnea who presents with increased redness on left leg # Acute sepsis, present on admission - Meet criteria with leukocytosis (15), Tachycardia (128), and Tachypnea (38) - Source likely left leg cellulitis and possible panniculitis - Further plan as noted below # Acute on chronic cellulitis of left lower extremity, present on admission, ongoing - Immnucompromised with likely poor circulation and Lymphedema are contributing factors to recurrent infections. - IV fluids resuscitations with NS - Dilaudid available for pain - Check ASO titer (which has been elevated in the past - Recheck MRSA screen (negative in the past) - Continue with IV Ceftriaxone started in the ED (patient has responded to in the past) - May need to contact Dr Eddy for recommendations # Acute kidney injury, present on admission since last hospitalization one month ago - Avoid nephrotoxic meds - Followup BMP - Consider nephrology consult if not improving # Chronic Hypertension - continue Lisinopril 10 mg bid # Depression Mood stable - continue Sertraline 100 mg daily # Obesity with Obstructive Sleep Apnea - Pt to does not use CPAP at home - patient approved for bariatric surgery at # Chronic pain syndrome - Continuing Gabapentin 600 mg bid and Oxycodone PRN - IV Dilaudid prn - Acetaminophen as needed for mild pain/fever/headache - Bowel regimen as needed - Antiemetic as needed Patient admitted under inpatient status with expected length of stay > 2 midnights for severity of present symptoms, complexities of treatment plan and risk for adverse event GI Prophylaxis: Not indicated VTE Prophylaxis: Sub-Q Heparin (Unfractionated) VTE Mechanical Devices: Venous Foot Pump Resuscitation Status: CPR: Attempt Resuscitation (discussed and verified with patient) Abbe Gallagher Jun 07, 2017 17:11
[2017-06-07] MEDS: cefTRIAXone Inj 2,000 MG in Dextrose 5% Minibag Plus 50 ML IV SCH (21:18)
--- NOTE | 2017-06-07 22:29 | NUR ---
pain med Computer in room not working, administered 1 mg Dilaudid with Tonja Molina RN witness. Administration noted on computer outside room.
[2017-06-08] MEDS: Heparin 5,000 Unit/mL Inj SUBQ SCH ×4 (00:45→23:53)
--- NOTE | 2017-06-08 02:22 | NUR ---
IV Pt IV in R AC infiltrated, IV therapy was called and started new IV. No noted problems, will continue to monitor.
--- NOTE | 2017-06-08 04:22 | NUR ---
labs Pt refused lab draw, said he did not trust anyone. pre sales technical engineer left and reasons for lab explained. Gave pt pain medication, pt agreed to lab draw in early intervention specialist. Will continue to monitor. Addendum: 06/08/17 at 0431 by MARTÍNEZ JACK RN amend Disregard previous note. Incorrect pt.
--- NOTE | 2017-06-08 04:34 | NUR ---
activity Pt remained in room for the shift, remaining up late watching tv, standby assist with urinal. Pt alert and oriented x 4, pleasant and cooperative. No complaints of pain at this time.
[2017-06-08 06:18] VITALS: BP 146/95; PULSE 73; RESP 26; O2SAT 99
--- NOTE | 2017-06-08 06:33 | NUR ---
Urine Pt alert and oriented x4, complains of pain in pannus. Pt urinates dark red urine. No complaints of pain upon urination.
[2017-06-08 06:36] LABS: BASOPHILS % (AUTO) 0.1 % (0-3); EOSINOPHILS % (AUTO) 2.5 % (0-5); MONOCYTES % (AUTO) 8.9 % (4-12); Mean Corpuscular Hemoglobin 25.8 pg (27.0-35.0); Mean Corpuscular Volume 87.5 fL (81-100); NEUTROPHILS % (AUTO) 74.8 % (40-74); Platelet Count 214 bil/L (150-400)
[2017-06-08 06:53] LABS: Magnesium 1.8 mg/dL (1.6-2.6)
[2017-06-08 14:24] VITALS: BP 140/79; PULSE 92; RESP 24; O2SAT 91
[2017-06-08] MEDS: HYDROmorphone 0.5 mg/0.5 mL iSecure Syringe IVPUSH PRN ×2 (14:35→21:05)
--- NOTE | 2017-06-08 17:01 | PCM.PNMED ---
Subjective Date of Service Jun 08, 2017 Subjective Denies any new issues/complaints Exam Vital Signs Vital Sign - Last Date Time Temp Pulse Resp B/P Pulse Ox O2 Delivery O2 Flow Rate FiO2 06/08/17 14:24 36.4 92 24 140/79 91 Nasal Cannula 3.00 Intake and Output 06/07/17 06/07/17 06/08/17 Cumulative From/Thru 15:00 23:00 07:00 06/07/17 02:30 - 06/08/17 06:24 Intake Total 2400 ml 892 ml 5290 ml Output Total 500 ml 75 ml 575 ml Balance -500 ml 2325 ml 892 ml 4715 ml Intake Oral 2400 ml 2400 ml IV Total 892 ml 2890 ml Output Urine Total 500 ml 75 ml 575 ml # Voids 3 3 # Bowel Movements 0 0 Exam General: Alert, Cooperative, No acute Distress Eyes: Scleral Anicteric Mouth: Mouth Normal, Mucous Membranes Moist/[place] Neck: Supple Chest & Lungs: Clear to auscultation bilat Cardiovascular: Regular Rate/Rhythm Abdomen: Soft, Non-tender, Non-distended, Normoactive bowel tones. Musculoskeletal: Unremarkable. Normal range of motion, no swollen or erythematous joints Extremities: Bilateral lower extremities----Evidence of chronic venous stasis changes , thickening of skin, very dry skin. Bilateral severe lymphedema.Both lower extremities tender to palpation (Left more than right) Skin: Abrasion noted on posterior side of left lower extremity. Erythema of abdominal pannus also noted Neurological: Grossly neurologically intact, Normal Speech, CN II-XII intact Psych: Calm, appropriate IVs and Medications Medications Reviewed: Medications were reviewed in detail Lab and Diagnostics Result Diagram: 06/08/17 0545 06/08/17 0545 Assessment & Plan 42 year old male Recurrent leg cellulitis and sepsis, severe bilateral lymphedema, hypertension, rheumatoid arthritis, chronic pain, obstructive sleep apnea who presents with increased redness on left leg # Acute sepsis, present on admission. Clinically improved - Meet criteria with leukocytosis (15), Tachycardia (128), and Tachypnea (38) - Source likely left leg cellulitis and possible panniculitis - Further plan as noted below # Acute on chronic cellulitis of left lower extremity, present on admission, ongoing - Immnucompromised with likely poor circulation and Lymphedema are contributing factors to recurrent infections. - IV Dilaudid available for pain - Check ASO titer (which has been elevated in the past - Recheck MRSA screen (negative in the past) - Continue with IV Ceftriaxone started in the ED (patient has responded to in the past) - May need to contact Dr Eddy for recommendations # Acute kidney injury, present on admission since last hospitalization one month ago and now much worse today - Avoid nephrotoxic meds - Stop Lisinopril - Followup BMP - Consider nephrology consult if not improving by am # Chronic Hypertension - Stop Lisinopril 10 mg bid given [place] # Depression Mood stable - continue Sertraline 100 mg daily # Obesity with Obstructive Sleep Apnea - Pt to does not use CPAP at home - patient approved for bariatric surgery at # Chronic pain syndrome - Continuing Gabapentin 600 mg bid and Oxycodone PRN - IV Dilaudid prn - Acetaminophen as needed for mild pain/fever/headache - Bowel regimen as needed - Antiemetic as needed Dispo: 2-4 days GI Prophylaxis: Not indicated VTE Prophylaxis: Sub-Q Heparin (Unfractionated) VTE Mechanical Devices: Venous Foot Pump Resuscitation Status: CPR: Attempt Resuscitation (discussed and verified with patient) Abbe Gallagher Jun 08, 2017 17:01
--- NOTE | 2017-06-08 17:17 | NUR ---
URINE Patient continued to have pink-red urine output during day shift. Denies burning, pain or discomfort when urinating. No urgency or frequency observed or reported. Patient states "this happens when I get cellulitis". MD is aware and renal ultrasound has been ordered. Bed low and locked, call light in reach, care and frequent rounding ongoing.
[2017-06-08] MEDS: cefTRIAXone Inj 2,000 MG in Dextrose 5% Minibag Plus 50 ML IV SCH (17:54)
[2017-06-08] MEDS: 0.9% Sodium Chloride 1,000 ML IV SCH ×2 (17:54→23:46)
--- NOTE | 2017-06-08 21:15 | NUR ---
Swelling Pt L testicle is swollen, red, no complaints of pain or discomfort, no drainage. Paged night hospitalist with information, will continue to monitor.
[2017-06-08 21:53] VITALS: BP 160/71; PULSE 94; RESP 22; O2SAT 86; O2SAT 95
[2017-06-09] MEDS: HYDROmorphone 0.5 mg/0.5 mL iSecure Syringe IVPUSH PRN ×3 (02:59→22:41)
--- NOTE | 2017-06-09 04:50 | NUR ---
Urine Pt continues to have dark brown urine, needs help using urinal. Will continue to monitor.
[2017-06-09 05:01] VITALS: BP 157/72; PULSE 92; RESP 28; O2SAT 96
[2017-06-09 06:07] LABS: BASOPHILS % (AUTO) 0.1 % (0-3); EOSINOPHILS % (AUTO) 2.2 % (0-5); MONOCYTES % (AUTO) 9.3 % (4-12); Mean Corpuscular Hemoglobin 25.8 pg (27.0-35.0); Mean Corpuscular Volume 84.8 fL (81-100); NEUTROPHILS % (AUTO) 73.2 % (40-74); Platelet Count 229 bil/L (150-400)
[2017-06-09 06:20] LABS: INR 0.99 ratio
[2017-06-09] MEDS: Heparin 5,000 Unit/mL Inj SUBQ SCH ×2 (08:43→16:55)
[2017-06-09] MEDS: 0.9% Sodium Chloride 1,000 ML IV SCH (11:59)
--- NOTE | 2017-06-09 13:44 | CONS ---
[address] [address] CONSULTATION REPORT PATIENT: PO DELGADO : 1975 MR#: [id number] ADMIT: 06/07/2017 JOB ID: [id number] DATE OF SERVICE: 06/09/2017 INFECTIOUS DISEASE CONSULTATION: I thank Dr. Gallagher for this timely consult. REASON FOR CONSULT: Cellulitis and panniculitis. HISTORY OF PRESENT ILLNESS: The patient is a very unfortunate gentleman who has super morbid obesity and awake which at times has gone considerably beyond 600 pounds. He has been admitted numerous times over the past few years for recurrent left lower extremity cellulitis and I have had the opportunity to see him on many of these admissions. Most recently the patient was admitted twice in the month of April for recurrent cellulitis. Prior to that, he had been admitted in March as well as in January as well as in December and November and almost monthly going back into his history. All of these admissions are mimetic in that he presents with pain, erythema and tenderness around the left lower extremity and improves fairly rapidly with antibiotics directed primarily at streptococcal organisms. Attempts to give him long-term prophylaxis with clindamycin 150 mg or even 300 mg p.o. b.i.d., as an outpatient, as well as efforts with oral amoxicillin, have failed and he has presented with recurrent infections regardless. The other major problem here is that his renal function seems to be getting worse over time and goes up and down violently from below about 1.22 to peaks as high as 4. I had the opportunity to see the patient in clinic on June 03. At that point, his legs were free of infection but he had noticed a mildly erythematous tender streak across his large pannus. There was no associated fevers or chills and labs I checked on that day as well as his examination and temperature did not suggest an acute infection. I chose not to add any antibiotics because the patient is on long courses of antibiotics at least once a month for recurrent cellulitis and I was concerned about subjecting him to relentless antibiotic pressure. The patient tells me following his visit on Thursday the , he did okay until the when he developed very abrupt onset of left lower extremity swelling, redness and tenderness. He also noted that he had some chills which was concerning and perhaps some induration in the left groin area that was new. His abdominal panniculitis findings that I had seen on the were reportedly not much worse. Since admission, he has been started on ceftriaxone for his recurrent presumably group A and group B strep infections and he has already noticed a tremendous improvement. He notices that the panniculitis type changes have not changed much but the left lower extremity and groin are dramatically better. He is requesting to go home today as he finds it very difficult to sleep or even lie in the hospital bed. PAST MEDICAL HISTORY: 1. Super morbid obesity with BMI as high as 90 and weight as high as 650 recently. 2. Recurrent soft tissue infections left lower extremity. 3. Lymphedema. 4. Venous insufficiency bilateral lower extremities. 5. Panniculitis. 6. Hypertension. 7. Fibromyalgia. 8. Chronic back pain. 9. Depression. 10. Sleep apnea. SOCIAL HISTORY: The patient is disabled by back pain and super morbid obesity. He neither smokes nor drinks and lives with his and three children. FAMILY HISTORY: Negative for TB in first and second degree relatives. REVIEW OF SYSTEMS: Was done. The patient currently has no headache, visual change or sore throat. No significant cough or shortness of breath beyond his baseline shortness of breath. No nausea, vomiting, diarrhea or dysuria. He has had some left groin and left testicular pain which has resolved since admission. His left lower extremity was hot and slightly more swollen than normal prior to admission. It has now resolved. His right leg has not gotten in trouble. Remainder of the review of systems is negative. PHYSICAL EXAMINATION: Reveals an afebrile gentleman, temperature 36.6, pulse 92, respiratory rate mid 20s. Blood pressure 157/72. He is saturating 96% on 3 L. He is in no acute distress. He appears as he usually does. He is comfortable, jovial and a very pleasant man. Head without trauma. Eyes without conjunctivitis. Oral cavity: No thrush or hairy leukoplakia. Neck is very obese, difficult to examine. No gross abnormalities. Lungs distant but clear. Cardiac tones distant but regular. Abdomen is massively obese. The circumferential band of mild panniculitis I saw on Thursday the in clinic is slightly better if anything and certainly no worse. There is no tenderness, warmth or drainage from around the pannus. The left groin was carefully examined. There is erythema and induration there but it is minimal and that area is essentially nontender. Both testicles are free of any tenderness and the testes and penis are free of any apparent infection. The remainder of the pannus in the right groin are unremarkable. The patient's lower extremities are massively swollen as always with lymphedema and venous insufficiency. They do not appear to be infected today as they are neither warm nor tender. LABORATORIES: Include a white count of 6800, platelet count 229. Note that when he came in on the in the asw specialist hours his white count was 15,000 and almost immediately dropped to normal and has remained at normal level since with a normal differential. His creatinine unfortunately was 2.75 when he came into the ED on the and it is now 4.25. Procalcitonin 5.46 which is obviously difficult to interpret in view of his rapidly changing renal function. Urinalysis without white cells. Streptozyme is actually down to 335. This is the lowest I have seen it. Back in October his streptozyme was 450 units, bounced around the 400s, now declining to this lowest level in eight months. Micro studies include a negative MRSA screen, negative blood cultures and urine that grew mixed mario. IMAGING: We have no imaging from this admission. IMPRESSION: This is an unfortunate readmission in this patient who has been admitted eight or nine times now since [facility] for recurrent soft tissue infections primarily the left lower extremity but this episode seems also to involve the left groin and possibly the pannus. The patient continues obviously to be super morbidly obese with fluctuating but generally worsening renal function which is of great concern. As always the patient has responded rapidly to parental beta-lactam agents. Attempts to offer him long-term prophylaxis with oral amoxicillin and/or clindamycin have so far failed though the patient thinks he actually got worse when he finally gave up on his clinda prophylaxis so maybe there was some benefit. RECOMMENDATIONS: 1. I would keep the patient on ceftriaxone as long as he is here in the hospital. 2. The patient could be considered for discharge in the next 24-48 hours if the renal team is in agreement. 3. For oral antibiotics I would send the patient out on Cefdinir 300 p.o. once a day unless his renal function dramatically improves prior to her discharge, then it would be 300 twice a day. I would continue that for about 10 days. 4. At the conclusion of his Cefdinir therapy, I would give the patient clinda 300 mg p.o. b.i.d. on an indefinite basis and see if we cannot get some form of control over these recurrent cellulitic episodes. 5. I would not discharge the patient until he is seen by Nephrology as these balances to ever higher levels in his creatinine are of great concern. 6. I would like to see the patient in my clinic on about July 01 which would be about three weeks from now. 7. I will see the patient again tomorrow if he is still here. Thank you very much for this consult.
--- NOTE | 2017-06-09 14:10 | DRSVH ---
PROCEDURE: US RENAL SONOGRAM INDICATIONS: SYDNEY TECHNIQUE: Real-time scanning was performed of the kidneys and bladder, with image documentation. COMPARISON: [facility], US, US RETROPERITONEAL, 05/08/2017, 8:40. [facility] , US, US RENAL, 11/05/2016, 21:01. FINDINGS: Evaluation limited due to body habitus. Kidneys: Right kidney measures 13.0 cm long; left kidney measures 15.3 cm long. Right renal cortica l thickness is 1.7 cm; left renal cortical thickness is 1.6 cm. Renal cortical echotexture is normal . No hydronephrosis. Bladder: Urinary bladder was nondistended. Miscellaneous: No free pelvic fluid. IMPRESSION: 1. No evidence of hydronephrosis. Dictated by: Norberto Lagos M.D. on 06/09/2017 at 14:06 Approved by: Norberto Lagos M.D. on 06/09/2017 at 14:07
[2017-06-09 14:14] VITALS: BP 129/73; PULSE 90; RESP 24; O2SAT 95
--- NOTE | 2017-06-09 16:41 | PCM.PNMED ---
Subjective Date of Service Jun 09, 2017 Subjective Denies any new issues/complaints Exam Vital Signs Vital Sign - Last Date Time Temp Pulse Resp B/P Pulse Ox O2 Delivery O2 Flow Rate FiO2 06/09/17 14:14 36.4 90 24 129/73 95 Nasal Cannula 3.00 Intake and Output 06/08/17 06/08/17 06/09/17 Cumulative From/Thru 15:00 23:00 07:00 06/07/17 02:30 - 06/09/17 05:19 Intake Total 200 ml 1299 ml 999 ml 7788 ml Output Total 225 ml 1000 ml 1800 ml Balance -25 ml 299 ml 999 ml 5988 ml Intake Oral 200 ml 650 ml 3250 ml IV Total 649 ml 999 ml 4538 ml Output Urine Total 225 ml 1000 ml 1800 ml # Voids 3 # Bowel Movements 0 0 Exam General: Alert, Cooperative, No acute Distress Eyes: Scleral Anicteric Mouth: Mouth Normal, Mucous Membranes Moist/[place] Neck: Supple Chest & Lungs: Clear to auscultation bilat Cardiovascular: Regular Rate/Rhythm Abdomen: Soft, Non-tender, Non-distended, Normoactive bowel tones. Musculoskeletal: Unremarkable. Normal range of motion, no swollen or erythematous joints Extremities: Bilateral lower extremities----Evidence of chronic venous stasis changes , thickening of skin, very dry skin. Bilateral severe lymphedema.Both lower extremities tender to palpation (Left more than right) Skin: Abrasion noted on posterior side of left lower extremity. Erythema of abdominal pannus also noted Neurological: Grossly neurologically intact, Normal Speech, CN II-XII intact Psych: Calm, appropriate IVs and Medications Medications Reviewed: Medications were reviewed in detail Lab and Diagnostics Result Diagram: 06/09/17 0545 06/09/17 0545 Assessment & Plan 42 year old male Recurrent leg cellulitis and sepsis, severe bilateral lymphedema, hypertension, rheumatoid arthritis, chronic pain, obstructive sleep apnea who presents with increased redness on left leg # Acute sepsis, present on admission. Clinically improved - Met criteria with leukocytosis (15), Tachycardia (128), and Tachypnea (38) - Source likely left leg cellulitis and possible panniculitis - Further plan as noted below # Acute on chronic cellulitis of left lower extremity, present on admission, ongoing - Immnucompromised with likely poor circulation and Lymphedema are contributing factors to recurrent infections. - IV Dilaudid available for pain - ASO titer elevated (which has been elevated in the past as well) - Continue with IV Ceftriaxone started in the ED - Appreciate ID consult today. Will followup with recs # Acute kidney injury, present on admission since last hospitalization one month ago and now much worse today - Avoid nephrotoxic meds - Stopped Lisinopril on 06/08 - Gentle IVF - Check renal U/S - Followup BMP and if no improvement by tomorrow then consider nephrology consult # Acute hyperkalemia. Not present on admission - Kayexalate PO x 1 - Followup repeat BMP later tonight and again in AM # Chronic Hypertension - Stopped Lisinopril on 06/08 given SYDNEY - Start Amlodipine 5mg daily and followup # Depression Mood stable - continue Sertraline 100 mg daily # Obesity with Obstructive Sleep Apnea - Pt to does not use CPAP at home - patient approved for bariatric surgery at # Chronic pain syndrome - Continuing Gabapentin 600 mg bid and Oxycodone PRN - IV Dilaudid prn - Acetaminophen as needed for mild pain/fever/headache - Bowel regimen as needed - Antiemetic as needed Dispo: 2-4 days pending renal status GI Prophylaxis: Not indicated VTE Prophylaxis: Sub-Q Heparin (Unfractionated) VTE Mechanical Devices: Venous Foot Pump Resuscitation Status: CPR: Attempt Resuscitation (discussed and verified with patient) Abbe Gallagher Jun 09, 2017 16:41
[2017-06-09] MEDS: cefTRIAXone Inj 2,000 MG in Dextrose 5% Minibag Plus 50 ML IV SCH (18:02)
[2017-06-09 21:12] VITALS: BP 142/80; PULSE 80; RESP 22; O2SAT 93
[2017-06-10] MEDS: Heparin 5,000 Unit/mL Inj SUBQ SCH ×3 (00:59→16:54)
[2017-06-10] MEDS: 0.9% Sodium Chloride 1,000 ML IV SCH (00:59)
[2017-06-10] MEDS: HYDROmorphone 0.5 mg/0.5 mL iSecure Syringe IVPUSH PRN ×4 (03:18→20:38)
[2017-06-10 05:05] VITALS: BP 163/78; PULSE 68; RESP 20; O2SAT 96
[2017-06-10 07:33] LABS: BASOPHILS % (AUTO) 0.1 % (0-3); EOSINOPHILS % (AUTO) 2.6 % (0-5); MONOCYTES % (AUTO) 8.1 % (4-12); Mean Corpuscular Hemoglobin 26.3 pg (27.0-35.0); Mean Corpuscular Volume 86.6 fL (81-100); NEUTROPHILS % (AUTO) 71.1 % (40-74); Platelet Count 237 bil/L (150-400)
[2017-06-10 07:56] LABS: Magnesium 2.1 mg/dL (1.6-2.6); Phosphorus 8.3 mg/dL (2.5-4.9)
--- NOTE | 2017-06-10 10:49 | PROG NOTE ---
[address] [address] PROGRESS NOTE PATIENT: PO DELGADO : 1975 MR#: [id number] ADMIT: 06/07/2017 JOB ID: [id number] DATE: 06/10/2017 REASON FOR FOLLOW UP: Cellulitis and panniculitis. INTERVAL HISTORY: Overnight, the patient has had no fevers, chills, or sweats. No significant pulmonary or GI symptoms. He notes his urine is a bit dielectric tester and perhaps greater in volume. The left lower extremity tenderness and erythema that he had previously is basically resolved. He still has some redness and firmness along his pannus, but it is not terribly painful. PHYSICAL EXAMINATION: Reveals a morbidly obese gentleman. He has been afebrile. His temperature is currently 36.8, pulse 68, respiratory rate 20, blood pressure 163/78, saturating well on 3 L. He is in no acute distress. His lungs are distant, but clear. His abdomen is massively obese with minimal panniculitis. It is just faintly erythematous, but nontender. There is no bullae or skin breakdown. The same is true of the patient's groin and suprapubic area. The left testicle is edematous, but not painful nor obviously inflamed. The young left lower extremity cellulitis is essentially resolved. LABORATORIES: Include white count 6900. Creatinine unfortunately stable at 4.24. LFTs are normal. Procalcitonin was 5.46 when he came in, it is down to 2.39 now. Streptozyme 335 which for him is fairly low. Retroperitoneal ultrasound shows no evidence of hydronephrosis. IMPRESSION: This is a super morbidly obese gentleman with recurrent streptococcal cellulitis. He is improving rapidly on ceftriaxone from an Infectious Disease point of view and can be discharged at any time. The main concern here is his renal issues. Note that he has had recurrent decrements in his renal function with recent admissions, but generally these have improved fairly quickly and so far this admission has been an exception with a creatinine stuck in the 4.2 range. RECOMMENDATIONS: 1. Continue ceftriaxone IV until he goes home. 2. Once the patient is ready for discharge cefdinir 300 b.i.d. for about five more days. 3. Following conclusion of the cefdinir he could be switched to clindamycin 300 mg p.o. b.i.d. indefinitely as prophylaxis. 4. The patient should follow up with me in the clinic on or about July 01 for his outpatient ID follow up. 5. From our point of view the patient may be discharged at any time, so ID will go ahead and sign off at this point. Please do not hesitate to call if there is additional questions or issues.
--- NOTE | 2017-06-10 11:38 | NUR ---
FOLLOW UP APPOINTMENT : Scheduled hospital follow up appointment at [facility] on 06/18/17 check in at 745AM for 8AM appointment with Updated [employer]
[2017-06-10 13:06] VITALS: BP 134/67; PULSE 80; RESP 22
--- NOTE | 2017-06-10 15:41 | PCM.PNMED ---
Subjective Date of Service Jun 10, 2017 Subjective Pain and swelling at leg cellulitis improving but some worsening at panniculitis area. Creatinine unchanged from yesterday but markedly elevated from his baseline. Exam Vital Signs Vital Sign - Last Date Time Temp Pulse Resp B/P Pulse Ox O2 Delivery O2 Flow Rate FiO2 06/10/17 13:06 36.7 80 22 134/67 Nasal Cannula 3.00 06/10/17 05:05 96 Intake and Output 06/09/17 06/09/17 06/10/17 Cumulative From/Thru 15:00 23:00 07:00 06/07/17 02:30 - 06/10/17 06:54 Intake Total 200 ml 1552 ml 831 ml 35525 ml Output Total 1225 ml 450 ml 850 ml 4325 ml Balance -1025 ml 1102 ml -19 ml 6046 ml Intake Oral 200 ml 473 ml 450 ml 4373 ml IV Total 1079 ml 381 ml 5998 ml Output Urine Total 1225 ml 450 ml 850 ml 4325 ml # Voids 3 # Bowel Movements 0 0 0 0 Exam General: Alert, Cooperative, No acute Distress. Morbidly obese Eyes: Scleral Anicteric Mouth: Mouth Normal, Mucous Membranes Moist/[place] Neck: Supple Chest & Lungs: Clear to auscultation bilat Cardiovascular: Regular Rate/Rhythm Abdomen: Huge pannus with erythrma,tenderness and swelling Musculoskeletal: Unremarkable. Normal range of motion, no swollen or erythematous joints Extremities: Bilateral lower extremities----Evidence of chronic venous stasis changes , thickening of skin, very dry skin. Bilateral severe lymphedema.Both lower extremities tender to palpation (Left more than right) Skin: Abrasion noted on posterior side of left lower extremity. Erythema of abdominal pannus also noted Neurological: Grossly neurologically intact, Normal Speech, CN II-XII intact Psych: Calm, appropriate IVs and Medications Medications Reviewed: Medications were reviewed in detail Lab and Diagnostics Result Diagram: 06/10/17 0650 06/10/17 0650 X-Rays, CTs and MRIs PROCEDURE: US RENAL SONOGRAM INDICATIONS: SYDNEY IMPRESSION: 1. No evidence of hydronephrosis. Dictated by: Norberto Lagos M.D. on 06/09/2017 at 14:06 Assessment & Plan 42 year old male Recurrent leg cellulitis and sepsis, severe bilateral lymphedema, hypertension, rheumatoid arthritis, chronic pain, obstructive sleep apnea who presents with increased redness on left leg # Acute kidney injury, present on admission since last hospitalization one month ago and now much worse - Avoid nephrotoxic meds - Stopped Lisinopril on 06/08 - Gentle IVF - renal U/S unremarkable -He had 2 similar episodes of acute kidney failure when hospitalized for cellulitis. He was diagnosed with nephrotic syndrome with proteinuria and hyperuricemia -Uric acid 8.5. Urine albumin to creatinine ratio requested - nephrology consulted # Acute sepsis, present on admission. Clinically improved - Met criteria with leukocytosis (15), Tachycardia (128), and Tachypnea (38) - Source likely left leg cellulitis and panniculitis - Further plan as noted below # Acute on chronic cellulitis of left lower extremity, present on admission, ongoing - Immnucompromised with likely poor circulation and Lymphedema are contributing factors to recurrent infections. - IV Dilaudid available for pain - ASO titer elevated (which has been elevated in the past as well) - Continue with IV Ceftriaxone started in the ED -ID consulted, recommended continue ceftriaxone while inpatient. Cefdinir 300 b.i.d. for about five more days,then clindamycin 300 mg p.o. b.i.d. indefinitely as prophylaxis. # Acute hyperkalemia. Not present on admission - Kayexalate PO x 1 - Followup repeat BMP later tonight and again in AM # Chronic Hypertension - Stopped Lisinopril on 06/08 given SYDNEY - Start Amlodipine 5mg daily and followup # Depression Mood stable - continue Sertraline 100 mg daily # Obesity with Obstructive Sleep Apnea - Pt to does not use CPAP at home - patient was seen bariatric surgery at # Chronic pain syndrome - Continuing Gabapentin 600 mg bid and Oxycodone PRN - IV Dilaudid prn - Acetaminophen as needed for mild pain/fever/headache - Bowel regimen as needed - Antiemetic as needed Dispo: 2-4 days pending renal status GI Prophylaxis: Not indicated VTE Prophylaxis: Sub-Q Heparin (Unfractionated) VTE Mechanical Devices: Venous Foot Pump Resuscitation Status: CPR: Attempt Resuscitation (discussed and verified with patient) Rubin Obando MD Jun 10, 2017 15:40
--- NOTE | 2017-06-10 17:15 | CONS ---
[address] [address] CONSULTATION REPORT PATIENT: PO DELGADO : 1975 MR#: [id number] ADMIT: 06/07/2017 JOB ID: [id number] DATE OF SERVICE: 06/10/2017 NEPHROLOGY CONSULTATION: REQUESTING PHYSICIAN: Abbe Gallagher MD REASON FOR CONSULTATION: Management of acute kidney injury. CHIEF COMPLAINT: Left lower extremity infection. HISTORY OF PRESENT ILLNESS: This is a 42-year-old male with significant past medical history of morbid obesity, chronic glomerulonephritis, lymphedema, recurrent skin and soft tissue infection, hypertension, depression, and sleep apnea, who came to the hospital with a complaint of tenderness and redness on the left lower extremity. The patient has had multiple hospitalizations related to skin and soft tissue infections of the left lower extremity. He also has had episodes of acute kidney injury when he had episodes of infection. At one point he also had history of vancomycin induced acute kidney injury. In January of this year when he came in with infection his serum creatinine peaked at 4.56 and came down to around 1.2. I saw him last month. His creatinine peaked at 2.8 and gradually came down to 2.5. However, he missed the followup and we do not have any following BMP after the last hospitalization. He came this time with initial BUN of 2.74. The patient noted to be relatively hypotensive. His lowest blood pressure noted on the was 102/64. He was taking lisinopril still and the medication was discontinued yesterday. His current serum creatinine is 4.24. The patient is noted to have chronic kidney disease and chronic glomerulonephritis. The etiology is unknown given the fact that we cannot perform a kidney biopsy due to his body habitus. The patient has been on lisinopril as an anti-proteinuria agent. PAST MEDICAL HISTORY: 1. Morbid obesity. 2. Recurrent skin and soft tissue infection. 3. Chronic kidney disease stage 3. 4. Chronic glomerulonephritis, unknown cause. 5. Lymphedema. 6. Hypertension. 7. Depression. 8. Sleep apnea. SOCIAL HISTORY: Denies current use of alcohol, tobacco, or illicit drugs. FAMILY HISTORY: No kidney disease in the family. REVIEW OF SYSTEMS: Fourteen point review of systems was performed. MEDICATIONS: Home medications: Gabapentin, lisinopril, oxycodone, sertraline. PHYSICAL EXAMINATION: Vitals: Temperature 36.7, pulse 86, respiratory 28, blood pressure 113/69, O2 sat 96% on 3 L nasal cannula. General appearance: Awake, alert, oriented x3. No acute distress. HEENT: No pallor. No jaundice. No JVD. No lymphadenopathy. No thyroid enlargement. Heart: Distant heart sounds. Regular rhythm. Normal S1, S2. No murmurs, rubs, or gallops. Lungs: Decreased breath sound at bases. No wheezing. No rhonchi. Abdomen: Soft, obese. Humongous pannus with erythema and swelling. Extremities: Positive for chronic skin changes, venous stasis, lymphedema changes. Tender and warm to touch on the left lower extremity. LABORATORY: Sodium 145, potassium 5.1, chloride 109, bicarb 21, BUN 40, creatinine 4.24. Hemoglobin 8.8, WBC 6.9, platelets 237. ASSESSMENT: 1. Acute kidney injury on chronic kidney disease. Likely related to acute tubular necrosis in the setting of ongoing infection that has happened every time when he has a skin and soft tissue infection. We were considering postinfectious glomerulonephritis; however, every time when we check his complement level, including complement 3 and 4, they always come back within the normal limits. At this point I would like to hold lisinopril and continue fluid hydration. Avoid nephrotoxins and adjust the dosage of the medication according to the estimated GFR. 2. Chronic kidney disease secondary to chronic glomerulonephritis, unknown cause. Differential diagnosis including obesity induced FSGS or IgA nephropathy. 3. Skin and soft tissue infection of the lower extremity. On antibiotics as per ID. 4. Chronic hypertension, controlled currently on amlodipine 5 mg once a day. 5. Morbid obesity. 6. Obstructive sleep apnea.
--- NOTE | 2017-06-10 17:27 | NUR ---
Patient Concerns: Patient complained of a feeling of Rt upper/middle quadrant swelling and discomfort. Patient states he is "scared" about it. Also, states that he feels some nasal drainage that drains down throat and then coughs up sputum that is bloody. Provided humidification for oxygen and notified MD of patient concerns regarding abdomen and sputum. On reassessment, patient states that humidification seems to be helping as "it feels less drying."
[2017-06-10] MEDS: cefTRIAXone Inj 2,000 MG in Dextrose 5% Minibag Plus 50 ML IV SCH (17:53)
[2017-06-10 20:10] VITALS: BP 164/93; PULSE 84; RESP 22; O2SAT 98
[2017-06-11] MEDS: Heparin 5,000 Unit/mL Inj SUBQ SCH ×2 (01:15→07:18)
[2017-06-11] MEDS: HYDROmorphone 0.5 mg/0.5 mL iSecure Syringe IVPUSH PRN (01:19)
[2017-06-11 04:25] VITALS: BP 169/102; PULSE 87; RESP 20; O2SAT 95
--- NOTE | 2017-06-11 04:41 | NUR ---
Wean o2 / NOC Patient reports "small amount of blood out of my nose." Several wadded kleenex noted in garbage can. No active nosebleed at this time. Nares are dry, somewhat flakey. Vaseline applied via clean swabs. o2 decreased from 3L to 2L via NC. o2 sats remain mid-high 90's. CTM for changes.
--- NOTE | 2017-06-11 07:37 | NUR ---
refusing Heparin pt has been having bloody noses, despite the humidified O2. pt's urine also looks to be blood tinged.
[2017-06-11 08:09] LABS: BASOPHILS % (AUTO) 0.2 % (0-3); EOSINOPHILS % (AUTO) 3.1 % (0-5); MONOCYTES % (AUTO) 8.6 % (4-12); Mean Corpuscular Hemoglobin 25.9 pg (27.0-35.0); Mean Corpuscular Volume 86.1 fL (81-100); NEUTROPHILS % (AUTO) 69.6 % (40-74); Platelet Count 225 bil/L (150-400)
--- NOTE | 2017-06-11 11:50 | NUR ---
AMA pt is choosing to leave AMA. paperwork signed, risks reviewed. Waiting on MD to finalize AMA/discharge.
--- NOTE | 2017-06-11 12:09 | PCM.DIMED ---
Discharge Instructions Date of Service Jun 11, 2017 Dates of Hospitalization Jun 07, 2017 at 07:04 Discharge Diagnosis Discharge Diagnosis # Acute kidney injury, present on admission, # Acute sepsis, present on admission. Clinically improved # Acute on chronic cellulitis of left lower extremity, present on admission, ongoing # Acute hyperkalemia. Not present on admission # Chronic Hypertension # Depression # Obesity with Obstructive Sleep Apnea # Chronic pain syndrome Diet Discharge Diet: Low fat, Low Sodium, Heart Healthy, Diabetic Activity Discharge Activity: Limited until seen by PCP Call your provider Call your provider for: Fever or Chills, Shortness of breath, Bleeding, Chest pain, Vomitting, Excessive diarrhea, Weakness (unilateral) Patient Instructions Patient Instructions You were hospitalized due to left leg cellulitis and panniculitis . You were treated with IV antibiotics . Please continue Cefdinir 300 b.i.d. for five more days,then clindamycin 300 mg p.o. b.i.d. indefinitely as prophylaxis.You had acute kidney injury due to ATN. You were advised by your kidney doctor to stay one more day for close monitoring of kidney function. You opted to go home and hence discharged today AMA. Please do not take lisinopril. We have replaced it with amlodipine. Please follow-up with PCP in 2-3 days for check up of kidney function. Follow-up Provider: Supa Alegria DO Follow-up with PCP in: 1 week Rubin Obando MD Jun 11, 2017 12:09
[2017-06-11] MEDS ORDERED: CLIN-78 PO (12:11)
[2017-06-11] MEDS ORDERED: CEFD300C3 PO (12:11)
[2017-06-11] MEDS ORDERED: AMLO5TAB2 PO (12:11)
--- NOTE | 2017-06-11 12:28 | NUR ---
AMA/discharge paperwork reviewed, hard copy of RX's given, belongings bagged. pt transfers himself via power scooter to private car to return to private home with family.
--- NOTE | 2017-06-11 13:53 | NUR ---
Social Work: Discharge / Multidisciplinary Data: Pt is on day 4 of hospitalization. EMR reviewed. Pt discussed in rounds. MD states pt has likely one more day of hospitalization needed. No d/c planning needs identified at this time. Pt discharged home via POV with spouse. PIN TICKET MACHINE OPERATOR received a voice mail from pt's spouse requesting a call back. PIN TICKET MACHINE OPERATOR called the given number [phone], phone number not in services. PIN TICKET MACHINE OPERATOR called other phone number listed for pt's , , voice mail not set up. No further d/c planning needs at this time. Assessment: Pt who is independent at baseline. Plan: Pt discharged home via POV today with his . No further d/c planning needs at this time. SAÚL Odell
--- NOTE | 2017-06-11 15:41 | PCM.DC.MED ---
Discharge Summary Date of Service Jun 11, 2017 Dates of Hospitalization Date of Hospital Admission Jun 07, 2017 at 07:04 Date of Discharge: Jun 11, 2017 Providers: Admitting Physician: Nicole Steel MD Primary Care Physician: Supa Alegria DO Attending Physician: Rubin Koenig MD Diagnosis at Time of Discharge Diagnosis at Time of Discharge # Acute kidney injury, present on admission, # Acute sepsis, present on admission. Clinically improved # Acute on chronic cellulitis of left lower extremity, present on admission, ongoing # Acute hyperkalemia. Not present on admission # Chronic Hypertension # Depression # Obesity with Obstructive Sleep Apnea # Chronic pain syndrome Consultations ID Dr Eddy nephro Dr Hernandez Procedures XRay, CTs & MRIs PROCEDURE: US RENAL SONOGRAM INDICATIONS: SYDNEY IMPRESSION: 1. No evidence of hydronephrosis. Dictated by: Norberto Lagos M.D. on 06/09/2017 at 14:06 Brief History per HPI by Dr Gallagher on 06/07/17 42 year old morbidly obese male with history of recurrent leg cellulitis and sepsis, severe bilateral lymphedema, hypertension, rheumatoid arthritis, chronic pain, obstructive sleep apnea who presents this time with report of acute chills similar to his prior episodes of cellulitis and noticing new associated left groin soreness, hardening of the stomach around the groin area. He also notes that he was diagnosed w/ panniculitis 4 days ago and is not on antibiotics currently. He was hospitalized a month ago for sepsis. He received a dose of IV Ceftriaxone in ED. Hospital Course 42 year old male Recurrent leg cellulitis and sepsis, severe bilateral lymphedema, hypertension, rheumatoid arthritis, chronic pain, obstructive sleep apnea who presents with increased redness on left leg # Acute kidney injury, present on admission since last hospitalization one month ago and now much worse - Avoid nephrotoxic meds - Stopped Lisinopril on 06/08 . Replaced his amlodipine - Gentle IVF - renal U/S unremarkable -He had 2 similar episodes of acute kidney failure when hospitalized for cellulitis. He was diagnosed with nephrotic syndrome with proteinuria and hyperuricemia on prior hospitalizations - nephrology consulted -ATN from sepsis seems to be the cause now. Creatinine improving very slowly. Patient left AMA. Nephrology recommended to observe him one more day to make sure kidneys are recovering. Advised to follow-up with PCP in 2-3 days to check kidney function test # Acute sepsis, present on admission. Clinically improved - Met criteria with leukocytosis (15), Tachycardia (128), and Tachypnea (38) - Source likely left leg cellulitis and panniculitis # Acute on chronic cellulitis of left lower extremity, present on admission, ongoing - Immnucompromised with likely poor circulation and Lymphedema are contributing factors to recurrent infections. - IV Dilaudid available for pain - ASO titer elevated (which has been elevated in the past as well) -Treated with IV Ceftriaxone started in the ED -ID consulted, recommended continue ceftriaxone while inpatient. Cefdinir 300 b.i.d. for about five more days,then clindamycin 300 mg p.o. b.i.d. indefinitely as prophylaxis. # Acute hyperkalemia. Not present on admission. Resolved - Kayexalate PO x 1 given # Chronic Hypertension - Stopped Lisinopril on 06/08 given SYDNEY - Start Amlodipine 5mg daily # Depression Mood stable - continue Sertraline 100 mg daily # Obesity with Obstructive Sleep Apnea - Pt to does not use CPAP at home - patient was seen bariatric surgery at # Chronic pain syndrome - Continuing Gabapentin 600 mg bid and Oxycodone PRN - Acetaminophen as needed for mild pain/fever/headache - Bowel regimen as needed - Antiemetic as needed Dispo: Discharged home AMA Exam Vital Signs (Last) Date Time Temp Pulse Resp B/P Pulse Ox O2 Delivery O2 Flow Rate FiO2 06/11/17 09:27 Supplement Oxygen 06/11/17 04:25 36.8 87 20 169/102 95 2.00 Exam General: Alert, Cooperative, No acute Distress. Morbidly obese Eyes: Scleral Anicteric Mouth: Mouth Normal, Mucous Membranes Moist/[place] Neck: Supple Chest & Lungs: Clear to auscultation bilat Cardiovascular: Regular Rate/Rhythm Abdomen: Huge pannus with erythrma,tenderness and swelling Musculoskeletal: Unremarkable. Normal range of motion, no swollen or erythematous joints Extremities: Bilateral lower extremities----Evidence of chronic venous stasis changes , thickening of skin, very dry skin. Bilateral severe lymphedema.Both lower extremities tender to palpation (Left more than right) Skin: Abrasion noted on posterior side of left lower extremity. Erythema of abdominal pannus also noted Neurological: Grossly neurologically intact, Normal Speech, CN II-XII intact Psych: Calm, appropriate Test 06/07/17 02:55 06/07/17 05:15 06/08/17 05:45 06/09/17 05:45 Lactic Acid Level 1.7mmol/L (0.4-2.0) Urine Color Bloody (YELLOW) Urine Appearance Cloudy (CLEAR,HAZY) Urine pH 6.5 (5.0-8.0) Urine Specific [place] 1.020 (1.003-1.035) Urine Protein >300mg/dL (NEG,TRACE) Urine Glucose (UA) Negativemg/dL (NEGATIVE) Urine Ketones Negativemg/dL (NEGATIVE) Urine Occult Blood Large (NEGATIVE) Urine Nitrite Positive (NEGATIVE) Urine Bilirubin Negative (NEGATIVE) Urine Urobilinogen Normalmg/dL (NORMAL) Urine Leukocyte Esterase Trace (NEGATIVE) Urine RBC >50/hpf (0-2) Urine WBC 0-5/hpf (0-5) Urine Epithelial Cells Few/hpf (NONE-MOD) Urine Crystals None seen (NONE SEEN) Urine Bacteria Moderate/hpf (NONE-FEW) Urine Hyaline Casts None/lpf (NONE) Urine Granular Casts None seen (NONE SEEN) Urine Waxy Casts None seen (NONE SEEN) Urine Red Blood Cell Casts None seen (NONE SEEN) Urine White Blood Cell Casts None seen (NONE SEEN) Urine Mucus None seen (None Seen) Urine Trichomonas None seen (NONE SEEN) Urine Yeast None (NONE SEEN) Urinalysis Comment None Urine Culture Reflexed Indicated Streptozyme 335.0IU/mL (0.0-200.0) Prothrombin Time 10.6sec (8.1-12.5) Prothromb Time International Ratio 0.99ratio Activated Partial Thromboplast Time 33.1sec (22.8-33.0) Test 06/09/17 21:10 06/10/17 06:50 06/10/17 14:51 06/11/17 05:43 Uric Acid 8.5mg/dL (2.6-7.2) Hold [place] Top Tube Received (Received) Phosphorus Level 8.3mg/dL (2.5-4.9) Magnesium Level 2.1mg/dL (1.6-2.6) Procalcitonin 2.39ng/mL (0.00-0.08) Urine Random Creatinine 88mg/dL (22-328) White Blood Count 5.7th/mm3 (3.8-10.1) Red Blood Count 3.17mil/mm3 (4.40-5.80) Hemoglobin 8.2g/dL (13.8-17.2) Hematocrit 27.3% (41.0-50.0) Mean Corpuscular Volume 86.1fL (81-100) Mean Corpuscular Hemoglobin 25.9pg (27.0-35.0) Mean Corpuscular Hemoglobin Concent 30.0% (32.0-37.0) Red Cell Distribution Width 14.4% (12.3-15.4) Platelet Count 225bil/L (150-400) Neutrophils (%) (Auto) 69.6% (40-74) Lymphocytes (%) (Auto) 18.2% (14-46) Monocytes (%) (Auto) 8.6% (4-12) Eosinophils (%) (Auto) 3.1% (0-5) Basophils (%) (Auto) 0.2% (0-3) Sodium Level 144mEq/L (134-144) Potassium Level 4.6mEq/L (3.5-5.2) Chloride Level 109mEq/L (97-108) Carbon Dioxide Level 20mmol/L (18-29) Blood Urea Nitrogen 37mg/dL (6-24) Creatinine 4.03mg/dL (0.76-1.27) Estimat Glomerular Filtration Rate 17mL/min (>59) Glucose Level 100mg/dL (60-99) Calcium Level 8.2mg/dL (8.5-10.1) Total Bilirubin 0.2mg/dL (0.0-1.2) Aspartate Amino Transf (AST/SGOT) 8U/L (0-50) Alanine Aminotransferase (ALT/SGPT) 7U/L (0-44) Alkaline Phosphatase 56U/L (25-150) Total Protein 6.5g/dL (6.4-8.4) Albumin 2.5g/dL (3.4-5.0) Discharge Medications Discharge Medications Amlodipine (Amlodipine) 5 Mg Tablet 10 MG PO DAILY Prescribed by: RUBIN KOENIG MD Cefdinir (Cefdinir) 300 Mg Capsule 300 MG PO BID Prescribed by: RUBIN KOENIG MD Clindamycin (Clindamycin) 300 Mg Capsule 300 MG PO BID Prescribed by: RUBIN KOENIG MD Sertraline HCl (Sertraline) 100 Mg Tablet 150 MG PO DAILY (Reported) As needed Gabapentin (Gabapentin) 600 Mg Tablet 600 MG PO BID PRN PRN For Pain (Reported) oxyCODONE (oxyCODONE) 10 Mg Tablet 20 MG PO Q4H PRN PRN For Pain (Reported) Followup Plan Disposition: Home, AMA Discharge Diet: Low fat, Low Sodium, Heart Healthy, Diabetic Discharge Activity: Limited until seen by PCP Patient Instructions You were hospitalized due to left leg cellulitis and panniculitis . You were treated with IV antibiotics . Please continue Cefdinir 300 b.i.d. for five more days,then clindamycin 300 mg p.o. b.i.d. indefinitely as prophylaxis.You had acute kidney injury due to ATN. You were advised by your kidney doctor to stay one more day for close monitoring of kidney function. You opted to go home and hence discharged today AMA. Please do not take lisinopril. We have replaced it with amlodipine. Please follow-up with PCP in 2-3 days for check up of kidney function. Follow-up Provider: Supa Alegria DO Follow-up with PCP in: 1 week Time spent 35 minutes counseling patient and family copies to: Supa Alegria Melaku MD Jun 11, 2017 15:41
== END 2017-06-11 12:28 | disposition left against medical advice (07) | DRG 871 ==
LOC: SED 02:17 → MPC 07:04
PROVIDERS: ADMIT Specialist; ATTEND Internal Medicine
DX: A41.9 Sepsis, unspecified organism (principal); N17.0 Acute kidney failure with tubular necrosis; Z68.45 Body mass index [BMI] 70 or greater, adult; L03.311 Cellulitis of abdominal wall; L03.116 Cellulitis of left lower limb; N03.9 Chronic nephritic syndrome with unspecified morphologic changes; E66.01 Morbid (severe) obesity due to excess calories; M79.3 Panniculitis, unspecified; F32.9 Major depressive disorder, single episode, unspecified; G89.4 Chronic pain syndrome; G47.33 Obstructive sleep apnea (adult) (pediatric); E87.5 Hyperkalemia; N18.9 Chronic kidney disease, unspecified; I12.9 Hypertensive chronic kidney disease with stage 1 through stage 4 chronic kidney disease, or unspecified chronic kidney disease

== ENCOUNTER 2017-07-29 08:18 | Inpatient (IN) | payer MEDICARE ==
[~2017-07-29] VITALS: Ht 182.9 cm; Wt 315.1 kg
[2017-07-29] VITALS (11 sets, daily range): BP systolic 90–177; BP diastolic 41–98; PULSE 92–131; RESP 17–44; O2SAT 77–98
[~2017-07-29 08:18] MED LIST changes: -AMLO5TAB2 PO; +BUSP7.5T5 PO; -CEPH-512 PO; -CLIN-78 PO; +HYDR-656 PO; +METF500T4 PO; +ROB500 PO
--- NOTE | 2017-07-29 08:22 | ED.REPORT ---
HPI-Extremity Problem Lower Date of Service Jul 29, 2017 ED Provider: Valente Arrington MD Patient is a 42 year old male with a history of recurrent cellulitis, morbid obesity and hypertension who presents to the ED via EMS complaining of right leg pain onset this morning. Associated symptoms include fever. He denies vomiting. The patient reports that he had been treated with outpatient antibiotics follow by Dr. Eddy that was recently stopped but he took one dose of oral Clindamycin this morning when his leg started to get red. He was hospitalized about 6 weeks ago for sepsis from left leg cellulitis. Nursing Notes Stated Complaint: LEG PAIN Nursing Notes Reviewed: Yes Allergies: Coded Allergies: linezolid (Verified Allergy, Severe, Hives, rash, itching, 06/07/17) levofloxacin (Verified Allergy, Unknown, 06/07/17) vancomycin (Verified Adverse Reaction, Intermediate, "Kidneys Shut Down", 06/07/17) Scheduled Amlodipine (Amlodipine) 10 Mg Tablet 10 MG PO DAILY Sertraline HCl (Sertraline) 100 Mg Tablet 150 MG PO DAILY Scheduled PRN oxyCODONE (oxyCODONE) 10 Mg Tablet 20 MG PO Q4H PRN PRN For Pain General Time Seen by MD: 08:30 Chief Complaint Leg injury right Hx Obtained From: Patient Arrived By: Ambulance Onset Occurred: 1 - 4 hours ago Symptom Duration: Since onset Location: : Leg right Quality: Painful Severity: Current: Moderate Recent Healthcare: Recent doctor visit, Recent hospitalization Similar Sx Previous: Yes Past Medical History Past Medical History Notes: Patient with multiple admissions for cellulitis Past Medical History 1. Recurrent cellulitis right lower extremity, also hx of abdominal cellulitis 2. Severe lymphedema of right lower extremity greater than left. 3. Severe Morbid obesity with BMI of 80.9 4. Hypertension. 5. Chronic pain with narcotic dependence. 6. Seasonal allergies. 7. Obstructive sleep apnea. CPAP intolerant. 8. Fibromyalgia. 9. Arthritis 10. Depression/Anxiety 11. Venous insufficiency of the lower extremities No hx of MRSA Past Surgical History Hernia repair Reports: Cholecystectomy Family History Diabetes Rheumatoid arthritis Hypertension Cancer No history of TB Smoking History Never Smoker Social History Uses mobility scooter Alcohol Use: Denies alcohol use Drug Use: Denies drug use Other Social History: , Local resident Ambulatory Status Wheelchair Review of Systems Constitutional: Reports: Fever, Denies: Chills Musculoskeletal: Reports: Extremity pain Skin: Denies Itching, Denies Rash Complete sys rev & neg: except as marked. GI: Denies: Vomiting Physical Exam Initial Vital Signs Vital Signs (First) Date Time Temp Pulse Resp B/P Pulse Ox O2 Delivery O2 Flow Rate FiO2 07/29/17 08:35 37.1 129 32 158/75 77 Room Air 07/29/17 09:45 4 Initial VS: Reviewed diffuse erythema and warmth of right leg Ankle / Foot: Non-tender General/Constitutional: Awake, Alert Appearance / Presentation: Positive: Obese, morbidly Respiratory / Chest: Atraumatic, Breath sounds NL, Breath sounds = bilat, No respiratory distress Cardiovascular: Heart rate NL, Regular rhythm, Heart sounds NL Skin: Warm, Dry Neurologic: Oriented X3, Speech NL Head / Eyes: Atraumatic, Normocephalic, PERRL, EOMI Psychiatric: Affect NL, Mood NL Interpretation & Diagnostics Interpretation & Diagnostics: LOWER EXTREMITY VENOUS DUPLEX US: IMPRESSION: Limited examination secondary to body habitus. The left common femoral vein not visualized and cannot be evaluated. Deep vein thrombosis involving the left common femoral vein cannot be excluded. No evidence of deep vein thrombosis involving the left superficial femoral vein or popliteal vein. Dictated by: Ary Trejo MD, PhD on 07/29/2017 at 12:27 Approved by: Ary Trejo MD, PhD on 07/29/2017 at 12:29 Lab Results Interpretation Result Diagram: 07/29/17 0900 07/29/17 0900 Test 07/29/17 08:30 07/29/17 09:00 07/29/17 10:45 Lactic Acid Level 1.8mmol/L (0.4-2.0) White Blood Count 4.4th/mm3 (3.8-10.1) Red Blood Count 3.49mil/mm3 (4.40-5.80) Hemoglobin 8.8g/dL (13.8-17.2) Hematocrit 28.9% (41.0-50.0) Mean Corpuscular Volume 82.8fL (81-100) Mean Corpuscular Hemoglobin 25.2pg (27.0-35.0) Mean Corpuscular Hemoglobin Concent 30.4% (32.0-37.0) Red Cell Distribution Width 14.7% (12.3-15.4) Platelet Count 270bil/L (150-400) Neutrophils (%) (Auto) 87.5% (40-74) Lymphocytes (%) (Auto) 8.9% (14-46) Monocytes (%) (Auto) 2.7% (4-12) Eosinophils (%) (Auto) 0.9% (0-5) Basophils (%) (Auto) 0% (0-3) Prothrombin Time 11.1sec (8.1-12.5) Prothromb Time International Ratio 1.04ratio Activated Partial Thromboplast Time 32.2sec (22.8-33.0) D-Dimer 1.91mg/L FEU (<0.50) Sodium Level 140mEq/L (134-144) Potassium Level 4.6mEq/L (3.5-5.2) Chloride Level 105mEq/L (97-108) Carbon Dioxide Level 19mmol/L (18-29) Blood Urea Nitrogen 32mg/dL (6-24) Creatinine 4.54mg/dL (0.76-1.27) Estimat Glomerular Filtration Rate 15mL/min (>59) Glucose Level 122mg/dL (60-99) Calcium Level 8.0mg/dL (8.5-10.1) Total Bilirubin 0.2mg/dL (0.0-1.2) Aspartate Amino Transf (AST/SGOT) 11U/L (0-50) Alanine Aminotransferase (ALT/SGPT) 5U/L (0-44) Alkaline Phosphatase 68U/L (25-150) Pro-B-Type Natriuretic Peptide 1184pg/mL (0-86) Total Protein 7.5g/dL (6.4-8.4) Albumin 2.8g/dL (3.4-5.0) Urine Color Bloody (YELLOW) Urine Appearance Cloudy (CLEAR,HAZY) Urine pH 6.5 (5.0-8.0) Urine Specific [place] 1.025 (1.003-1.035) Urine Protein 300mg/dL (NEG,TRACE) Urine Glucose (UA) Negativemg/dL (NEGATIVE) Urine Ketones Negativemg/dL (NEGATIVE) Urine Occult Blood Large (NEGATIVE) Urine Nitrite Negative (NEGATIVE) Urine Bilirubin Negative (NEGATIVE) Urine Urobilinogen Normalmg/dL (NORMAL) Urine Leukocyte Esterase Negative (NEGATIVE) Urine RBC Packed/hpf (0-2) Urine WBC 0-5/hpf (0-5) Urine Epithelial Cells Few/hpf (NONE-MOD) Urine Crystals None seen (NONE SEEN) Urine Bacteria Few/hpf (NONE-FEW) Urine Hyaline Casts None/lpf (NONE) Urine Granular Casts None seen (NONE SEEN) Urine Waxy Casts None seen (NONE SEEN) Urine Red Blood Cell Casts None seen (NONE SEEN) Urine White Blood Cell Casts None seen (NONE SEEN) Urine Mucus None seen (None Seen) Urine Trichomonas None seen (NONE SEEN) Urine Yeast None (NONE SEEN) Urinalysis Comment None Urine Culture Reflexed Not indicated ECG Interpretation ECG Interpretation: sinus tachycardia, rate [address], T changes Time: 09:02 Interpreted by: ED physician X-Ray Chest Interpretation Chest Xray Interpretation: IMPRESSION: 1. Borderline prominence of the heart with mild to moderate vascular congestion. 2. Left infrahilar density probably represents atelectasis. Please correlate clinically to exclude pneumonia. Dictated by: Arie Blake M.D. on 07/29/2017 at 8:43 Approved by: Arie Blake M.D. on 07/29/2017 at 8:53 Interpretation / Wet Read by: Interpret - Radiologist Re-Eval/Medical Decision Med Decision/Clinical Course 42-year-old male history of morbid obesity, obesity hypoventilation syndrome, chronic leg showing sialitis presenting with right leg pain Onset Earlier Today. On arrival patient tachycardic in the 130s and oxygen in the 70s. Oxygen improved with 4 L nasal cannula. Unable to perform PE study given patient's weight. Right lower extremity ultrasound no DVT. He does have a right lower extremity cellulitis. No evidence sepsis on labs. Cannot rule out PE given his right leg pain and tachycardia and unable to visualize completely his right lower extremity. I discussed with cardiology who recommended heparin drip and no need for definitive PE study as he will need chronic anticoagulation given his bed confined state. Placed on heparin drip. Given clindamycin for cellulitis. Admitted to hospital. Re-Evaluation/Progress : Time of Eval: 11:00 Re-Evaluation/Progress Note: Discussed results and plan for admit. Patient understands and agrees to plan. All questions were addressed. Consultation #1: Referral / Consult Name: Fan Lemus MD Consulted With: Cardiology Call Returned at: 09:55 Agency Service Representative: Agrees with eval, Agrees with plan Note: Consult with Dr. Suarez, who recommends starting a Heparin drip with plan for VQ scan Consultation #2: Referral / Consult Name: Luz Maria Varela DO Consulted With: Hospitalist Call Returned at: 10:44 Agency Service Representative: Agrees with eval, Agrees with plan, Accepts admit Counseled Regarding: Diagnosis, Lab results, Need for admission Discharge & Departure Impression: Primary Impression: Cellulitis Site of cellulitis: extremity Site of cellulitis of extremity: lower extremity Laterality: right Qualified Code: L03.115 - Cellulitis of right lower limb Additional Impressions: Tachycardia Dyspnea Dyspnea type: unspecified Qualified Code: R06.00 - Dyspnea, unspecified Disposition: ADMITTED TO HOSPITAL Discharge Condition All VS Reviewed: Yes Condition: Stable Referrals: Supa Aelgria DO (PCP) Crit Care Except Billable Proc Time Spent: 30-74 minutes (42) Services Performed: Patient management by me, Time spent at bedside, Reviewing test results, Reviewing imaging, Discussing patient care, Documentation in record Scribe Attestation Portions of this note were transcribed by Tawana Lott. I, Dr. Arrington personally performed the history, physical exam and medical decision-making; I reviewed and confirmed the accuracy of the information in the transcribed note. Signed by: Geoff Paredes, 07/29/17 copies to: Supa Alegria Ben M MD Jul 29, 2017 08:22 Nilda Lott Jul 29, 2017 08:42
[2017-07-29] MEDS ORDERED: 0.9% Sodium Chloride 1,000 ML IV ONE (08:30)
[2017-07-29] MEDS ORDERED: HYDROmorphone 1 mg/mL Inj IVPUSH ONE (08:50)
--- NOTE | 2017-07-29 09:13 | ABG ---
DateTimeAnalyzed 09:06:00 -_ pH ____7.231 - 7.350 7.450 pCO2 ___48.7__ -mmHg 35.0 45.0 pO2 ___68.5__ -mmHg 69.0 116 HCO3- ___19.7__ -mmol/L 22.0 26.0 ABE ___-7.0__ -mmol/L -2.0 2.0 tHb ____8.8__ -g/dL 12.0 18.0 O2Hb ___89.6__ -% COHb ____1.2__ -% 0.0 1.5 MetHb ____0.8__ -% 0.4 1.5 sO2 ___91.4__ -% 25.0 FIO2 ___34.0__ -% Drawn By blf - Date/Time Notified____ 09:12:00 -_ Spontaneous_RR ___36.0__ -b/min Liter_Flow ____4.0__ -L/min Oxygen Device 1 __CANNULA - Notified By blf - Notified Whom ___Dr. Moises-Mendoza -___ B 756 -mmHg tO2 ___11.1__ -Vol% Zoltan test _Positive -
[2017-07-29 09:23] LABS: BASOPHILS % (AUTO) 0 % (0-3); EOSINOPHILS % (AUTO) 0.9 % (0-5); MONOCYTES % (AUTO) 2.7 % (4-12); Mean Corpuscular Hemoglobin 25.2 pg (27.0-35.0); Mean Corpuscular Volume 82.8 fL (81-100); NEUTROPHILS % (AUTO) 87.5 % (40-74); Platelet Count 270 bil/L (150-400)
[2017-07-29 09:42] LABS: INR 1.04 ratio
[2017-07-29 09:43] LABS: D-Dimer 1.91 mg/L FEU (<0.50)
--- NOTE | 2017-07-29 09:55 | DRSVH ---
PROCEDURE: X-RAY CHEST ONE VIEW, PORTABLE ([id number]) INDICATIONS: dyspnea TECHNIQUE: One view of the chest was acquired. COMPARISON: [facility], CR, XR CHEST 2VW, 05/15/2017, 11:33. FINDINGS: Surgical changes and devices: None. Lungs and pleura: There is elevation of the right diaphragm, similar to the prior study. Slight incr eased attenuation is evident at the left lung base. There is no lobar consolidation, large effusion, or pneumothorax. The pulmonary vasculature is slightly increased. Mediastinum: Mediastinal contours appear normal. Heart size is borderline enlarged. Bones and chest wall: No suspicious bony lesions. Overlying soft tissues appear unremarkable. IMPRESSION: 1. Borderline prominence of the heart with mild to moderate vascular congestion. 2. Left infrahilar density probably represents atelectasis. Please correlate clinically to exclude pneumonia. Dictated by: Arie Blake M.D. on 07/29/2017 at 8:43 Approved by: Arie Blake M.D. on 07/29/2017 at 8:53
[2017-07-29] MEDS ORDERED: Heparin 25K Unit/500mL 0.45 NS 25,000 UNIT in IV Premix 1 EACH IV ONE (10:10)
[2017-07-29] MEDS ORDERED: Clindamycin Inj 900 MG in IV Premix 1 EACH IV ONE (10:10)
[2017-07-29] MEDS ORDERED: Heparin 5,000 Unit/mL Inj IVPUSH ONE (10:10)
[2017-07-29] MEDS ORDERED: Ondansetron 2 mg/mL 2 mL Inj IVPUSH PRN ×2 (10:50→11:25)
[2017-07-29] MEDS ORDERED: Alum-Mag Hydrox-Simeth 30 mL Suspension PO PRN ×2 (10:50→11:25)
[2017-07-29] MEDS ORDERED: Polyethylene Glycol (PEG) 17 Gm Powder PO PRN (11:25)
[2017-07-29] MEDS ORDERED: Heparin 1,000 Units/mL 10 mL DVT/PE Bolus Inj IVPUSH PRN (11:25)
[2017-07-29 11:34] LABS: APPEARANCE,URINE CLOUDY (CLEAR,HAZY); COLOR,URINE BLOODY (YELLOW); OCCULT BLOOD,URINE LARGE (NEGATIVE); PH,URINE 6.5 (5.0-8.0); UROBILINOGEN,URINE NORMAL (NORMAL)
[2017-07-29] MEDS ORDERED: HYDROmorphone 1 mg/mL Inj IVPUSH PRN (11:45)
[2017-07-29] MEDS ORDERED: AMLO10TA3 PO (12:00)
--- NOTE | 2017-07-29 12:31 | DRSVH ---
PROCEDURE: US VEINOUS LEG DUPLEX UNILATERAL, RIGHT INDICATIONS: RLE swelling TECHNIQUE: Real-time imaging, as well as color and pulse Doppler interrogation, were performed of the lower extr emity deep veins from the inguinal ligament to the popliteal fossa. COMPARISON: None. FINDINGS: Study limited secondary to patient body habitus. The right common femoral vein is not visu alized and cannot be evaluated. The visualized deep veins are normally compressible, and free of intr aluminal thrombus. Color and pulse Doppler demonstrate normal phasic intraluminal flow in the visual ized left lower extremity deep veins. There is normal augmentation response to distal compression ma neuver in the visualized left lower extremity deep veins.. IMPRESSION: Limited examination secondary to body habitus. The left common femoral vein not visualize d and cannot be evaluated. Deep vein thrombosis involving the left common femoral vein cannot be excl uded. No evidence of deep vein thrombosis involving the left superficial femoral vein or popliteal ve in. Dictated by: Ary Trejo MD, PhD on 07/29/2017 at 12:27 Approved by: Ary Trejo MD, PhD on 07/29/2017 at 12:29
--- NOTE | 2017-07-29 13:30 | NUR ---
Admit Pt admitted from ER on [facility] bed at 1330. Report provided by Lucy Javier RN. Pt placed on tele and CPOX. O2 90-93% on 4 to 4.5L. HR 110-120s. Care team aware. To continue heparin drip, Iv fluids and monitoring. Pt pain to R leg 5/10 on admit but states this is tolerable at this time. Denied chest pain or SOB. Afebrile. Oriented to room and plan of care.
[2017-07-29] MEDS: 0.9% Sodium Chloride 1,000 ML IV SCH ×2 (13:48→17:02)
[2017-07-29 15:04] LABS: OSMOLALITY, URINE 303 mOs/kH2O (250-1200)
[2017-07-29 15:23] LABS: TROPONIN T < 0.010 ug/L (0.0-0.011)
--- NOTE | 2017-07-29 15:42 | PCM.PHAPRO ---
Progress Date of Service: Jul 29, 2017 Warfarin Management per Pharmacy: Indication: Possible DVT and/or PE (DVT cannot be excluded via ultrasound) Goal INR: 2-3 Labs: Hgb/Hct: 8.8/28.9 Plt: 270 INR: 1.04 Drug Interactions: None Additional Anticoagulants: Heparin IV Recommendation: Warfarin 7.5 mg PO x 1 now. INR ordered daily x 7 days Pharmacy to continue to monitor and dose daily. Thank You, Racheal Beck, Pharm D. Racheal Beck Jul 29, 2017 15:42
--- NOTE | 2017-07-29 15:45 | PCM.HPMED ---
Subjective Date of Service Jul 29, 2017 Primary Provider: Admitting Physician: Luz Maria Varela DO Primary Care Physician: Supa Alegria DO Attending Physician: Luz Maria Varela DO Chief Complaint: right lower leg pain History of Present Illness: Du Flannery is a 42yo male with a history of chronic lower extremity cellulitis, bilateral lymphedema, morbid obesity with panniculitis, and chronic kidney disease presents to the emergency department with the chief complaint of new onset right lower leg pain. Patient states that the pain in his right leg began acutely this morning at 06:30. He describes the pain as a persistent throbbing with burning and soreness, with radiation from his foot to abdomen, sparing his toes, and associated with numbness on his legs. At its worst the patient would rate the pain at 8 out of 10. At the onset of the pain he also experienced shortness of breath, fatigue, chills, and dizziness. The patient states that this episode of right lower leg pain is consistent with previous episodes of cellulitis which required antibiotics in hospital stays. He admits to being hospitalized for several episodes of cellulitis, eight total since 12/09 , with his last episodes 07/23/17 and states that this feels the same as each prior admission. Patient admits to a persistent cough since April with clear sputum production. Patient also admits to chronic dark urine. The patient was scheduled to see nephrology in May however he became sick and required a hospitalization and missed his outpatient nephrology appointment with Dr. Walton. Denies recent illness, new medications, sick contacts, trauma, and any history of diabetes. The patient was seen for possible bariatric surgery evaluation in January however was deemed a poor candidate given his chronic cellulitis. The patient has not been using his home CPAP. Review of Systems: A comprehensive review of systems is obtained and all are negative except for what is included in the history of present illness. Allergies Coded Allergies: linezolid (Verified Allergy, Severe, Hives, rash, itching, 06/07/17) levofloxacin (Verified Allergy, Unknown, 06/07/17) vancomycin (Verified Adverse Reaction, Intermediate, "Kidneys Shut Down", 06/07/17) Home Medications Amlodipine 10 mg daily Oxycodone 20 mg every 4 when necessary Sertraline 150 mg PMH morbid obesity with BMI of 80.9 Recurrent cellulitis right lower extremity, also hx of abdominal cellulitis/ panniculitis Severe lymphedema of right lower extremity greater than left Venous insufficiency of the lower extremities bilaterally Hypertension Fibromyalgia/Chronic pain with narcotic dependence. arthritis Chronic back pain Depression/anxiety Obstructive sleep apnea Rheumatoid arthritis Seasonal allergies. Chronic glomerulonephritis erectile dysfunction pre-diabetes mellitus type II not insulin-dependent No hx of MRSA Surgical History Gallbladder removed 2004 hernia repair 2015 Family History Father - diabetes Mother - Hypertension, diabetes, stroke Social History Occupation: on disability Hx Alcohol Use: No Hx Substance Use: No Hx Tobacco Use: No Smoking Status: Never Smoker Living Arrangement: with Family Exam Vital Signs Vital Sign - Last Date Time Temp Pulse Resp B/P Pulse Ox O2 Delivery O2 Flow Rate FiO2 07/29/17 13:45 Supplement Oxygen 07/29/17 13:39 120 07/29/17 13:32 37.4 24 103/58 91 4.50 Exam General: Morbidly obese male in no acute distress, mildly somnolent lying in over sized hospital bed Eyes: Pupils equal round and reactive to light, extraocular motion intact, anicteric sclera, noninjected conjunctiva HENT: Normocephalic atraumatic, moist mucous membranes without central cyanosis , oropharynx clear without purulent exudate or cobblestoning mucosa Neck: Supple, trachea midline, thick neck without thyromegaly or JVD Cardiovascular: Very distant heart sounds noted however Regular rate and regular rhythm, S1-S2 present, no S3-S4, without murmurs rubs or gallops noted Lungs: Distant lung sounds noted however Clear to auscultation bilaterally without wheezing rales or rhonchi Abdomen: Soft, tenderness with induration and erythema as well as stippling noted in lower abdomen consistent with chronic lymphedema, nondistended, tympanic to percussion, normal active bowel sounds, unable to assess organomegaly due to body habitus Extremities: Significant lymphedema noted in lower extremities bilaterally worse than the right leg than left with induration and erythema as well as skin stippling, gross tenderness to palpation bilaterally right worse than left, no cyanosis clubbing or noted, notably decreased pulses bilaterally at dorsalis pedis and posterior tibialis compared to radial in upper extremities bilaterally : No Reddy catheter in place Skin: Warm and dry Neuro: Nonfocal neurologic exam, able to move all extremities Psych: Normal mood and affect Lab and Diagnostics Result Diagram: 07/29/17 0900 07/29/17 0900 X-Rays, CTs and MRIs X-RAY CHEST ONE VIEW, PORTABLE IMPRESSION: 1. Borderline prominence of the heart with mild to moderate vascular congestion. 2. Left infrahilar density probably represents atelectasis. Please correlate clinically to exclude pneumonia. Approved by: Arie Blake M.D. on 07/29/2017 at 8:53 Additional Diagnostics: US VEINOUS LEG DUPLEX UNILATERAL, RIGHT IMPRESSION: Limited examination secondary to body habitus. The left common femoral vein not visualized and cannot be evaluated. Deep vein thrombosis involving the left common femoral vein cannot be excluded. No evidence of deep vein thrombosis involving the left superficial femoral vein or popliteal vein. Approved by: Ary Trejo MD, PhD on 07/29/2017 at 12:29 ABG pH ____7.231 - 7.350 7.450 pCO2 ___48.7__ -mmHg 35.0 45.0 pO2 ___68.5__ -mmHg 69.0 116 HCO3- ___19.7__ -mmol/L 22.0 26.0 Liter_Flow ____4.0__ -L/min Oxygen Device 1 __CANNULA - Assessment & Plan Du Flannery is a 42 year old male recurrent leg cellulitis, severe bilateral lymphedema, hypertension, chronic pain, obstructive sleep apnea who presents to [facility] emergency department with increased redness on left leg. Acute hypoxic hypercapnic respiratory failure - Possibly combined effects of obesity hypoventilation syndrome and possible pulmonary emboli - Noted pH of 7.23 with PCO2 of 48.7 and PO2 of 68.5 on 4 L nasal cannula in the ED - RT to place BiPAP as necessary with oxygen goals between 88 and 92% given possibility of chronic CO2 retention Possible acute pulmonary emboli - Patient has lower extremity edema making clinical signs of DVT as well as LE US imaging difficult, however is notably sedentary lifestyle with with d-dimer of 1.91 and a heart rate greater than 100, with review of records indicated that the patient is not typically tachycardic at baseline, giving him a well's score of 4.5 with a moderate risk of pulmonary emboli approximately 16.2% - Given patient's body habitus and poor kidney function no ability to perform CT PE or VQ scan - Clinically the patient states he feels better after starting on a heparin drip possibly consistent with improvement with thrombolysis - Patient will be bridged on heparin drip given his kidney disease Lovenox is contraindicated, given patient's body habitus no normal anticoagulation therapy can be given, pharmacy to administer warfarin - Patient will likely need to be anticoagulated on warfarin for minimum of 6 months given this is an unprovoked PE Acute kidney injury on chronic kidney disease with noted chronic glomerulonephritis - Previous nephrology notes indicate the patient has chronic glomerulonephritis however given body habitus and poor patient follow-up no definitive diagnosis has been made currently leaning to focal segmental glomerular sclerosis versus IgA nephropathy with the last renal ultrasound on 06/09/17 showing no hydronephrosis with right kidney measures 13.0 cm long; left kidney measures 15.3 cm long. Right renal cortical thickness is 1.7 cm; left renal cortical thickness is 1.6 cm. Renal cortical echotexture is normal. - Chronic kidney disease with currently uncertain staging given with baseline creatinine approximately 1.1-1.3 in December 2016 with consistent increases in creatinine every hospitalization since December to current admission - Creatinine of 4.54 admission - Fractional excretion of sodium calculated at 0.6% consistent with prerenal causes for worsening kidney injury - IVF NS 100mls/hr given previous echos show normal EF with no history of CHF Acute on chronic cellulitis of right lower extremity - poor circulation and Lymphedema are contributing factors to recurrent infections. - White blood cell count of 4.4 notably lower than prior admissions possibly atypically consistent with infectious etiology, pro-calcitonin of 0.37 typically considered indeterminate - Pt last hospitalized on 06/11/2017 for cellulitis, left AMA, at that time ID was consulted, recommended ceftriaxone while inpatient and cefdinir 300 once per day as outpatient for minimum of 10 days, with clindamycin 300 mg p.o. b.i.d. indefinitely as prophylaxis. - IVF NS 100mls/hr - ASO ordered and pending - Blood Culture ordered and pending - MRSA nasal swab ordered and pending no previous history of MRSA however patient has significant risk given chronic antibiotics and recurrent hospitalizations - Continue Rocephin 2 g daily while inpatient and likely follow previous infectious disease directions for antibiotics past discharge Hypertension, chronic - Monitor and hold home medication until more normotensive - Consider initiating alternative blood pressure medication to amlodipine considering chronic lower extremity edema - Avoid Poncho inhibitors given kidney disease with acute kidney injury - Consider initiating labetalol 100 mg by mouth twice a day as necessary Chronic normocytic anemia - Hemoglobin of 8.8 at admission with MCV of 83 - Likely secondary to chronic kidney disease with severe glomerulonephritis blood loss as well as poor erythropoietin production - monitor Depression, chronic - continue Sertraline 150 mg daily Chronic severe morbid Obesity - continue pulse oximetry - Pt to does not use CPAP at home Chronic pain syndrome - continuing home Oxycodone PRN Obstructive Sleep Apnea, chronic - RT instructed to provide BiPAP overnight Chronic prediabetic [id number] - A1c of 6.3 in April 2017 - A1c ordered and pending DVT prophylaxis: Heparin drip GI prophylaxis: Not indicated CODE STATUS is full Patient admitted under inpatient status with expected length of stay > 2 midnights for severity of present symptoms, complexities of treatment plan and risk for adverse event Pain Evaluation: Adequate Pain Control GI Prophylaxis: Not indicated VTE Prophylaxis Indicated: Meets Criteria for Anticoag Therapy, VTE on Admission VTE Prophylaxis: Other (heparin drip) Resuscitation Status: CPR: Attempt Resuscitation Attending Statement The patient was seen and examined together with Dr. De Oliveira on 07/29/17 and I have added additional information to the note above. Charlie Devi DO Jul 29, 2017 15:45 Luz Maria Varela DO Jul 30, 2017 12:50
[2017-07-29] MEDS ORDERED: cefTRIAXone Inj 2,000 MG in Dextrose 5% Minibag Plus 50 ML IV SCH (15:50)
[2017-07-29] MEDS ORDERED: Glucose 40% Oral Gel 15 Gm Tube PO PRN (17:25)
[2017-07-29] MEDS: Insulin LISPRO 300 Unit/3 mL Inj SUBQ SCH ×2 (17:30→22:00)
--- NOTE | 2017-07-29 17:45 | NUR ---
Pain/reflux/status notified at 1700 pt c/o 06/01 pain but stating that "oxy won't do anything" and is requesting dilaudid. Per MD, to start bipap and then reassess respiratory status/alertness and need for dilaudid. also notified that pt c/o reflux with plan to give maalox. MD to also order pepcid prn. Pt placed on bipap by RT with improvement in sats to 97%. notified that following start of bipap pt would like to discuss dilaudid. Will continue to monitor.
[2017-07-29] MEDS: Heparin 25K Unit/500mL 0.45 NS 25,000 UNIT in IV Premix 1 EACH IV SCH ×2 (18:04→23:25)
--- NOTE | 2017-07-29 19:18 | PCM.ADCARE ---
Advance Care Planning Note CODE STATUS: Date: 07/29/2017 Diagnosis: Morbid obesity Acute hypoxic hypercapnic respiratory failure Possible acute PE Acute on chronic kidney disease with chronic glomerulonephritis Chronic cellulitis of the right lower extremity chronic normocytic anemia Depression Obstructive sleep apnea B diabetic [id number] Purpose of encounter: Goals of care Parties in attendance: Dr. Varela, the patient, Dr. De Oliveira Decisional capacity: Good Plan: The patient is aware of the current diagnosis and would like to continue to be full code. The patient understands that this means for chest compressions , intubation, pressors, and all measures involved with CPR. CODE STATUS: Full code Time spent with advanced care planning: Greater than 16 minutes Luz Maria Varela DO Jul 29, 2017 19:18
[2017-07-30] VITALS (10 sets, daily range): BP systolic 83–138; BP diastolic 40–49; PULSE 88–104; RESP 17–22; O2SAT 90–98
[2017-07-30] MEDS: Heparin 25K Unit/500mL 0.45 NS 25,000 UNIT in IV Premix 1 EACH IV SCH ×4 (04:16→22:45)
--- NOTE | 2017-07-30 05:02 | NUR ---
Respiratory/pain Pt on Bipap at beginning of shift and tolerating well. Family came to visit and pt wanted off of the bipap and requested to be placed when going to sleep. Pt placed on 3L NC and tolerated well. Pt placed on Bipap around 0400 as pt wanted to stay off most of the night and tolerating well and resting. Pt c/o pain in right leg 8/10 x1 then 5/10 x2 administered PRN Oxycodone x3 and PRN 1mg Dilaudid x1 this shift and effective at reducing pain for a short period of time. VSS and Tele ST 100's to 110's.
[2017-07-30 05:34] LABS: EOSINOPHILS % (AUTO) 0 % (0-5); Mean Corpuscular Hemoglobin 25.2 pg (27.0-35.0); Mean Corpuscular Volume 83.9 fL (81-100); Platelet Count 243 bil/L (150-400)
[2017-07-30 05:50] LABS: BASOPHILS % (AUTO) 0 % (0-3); MONOCYTES % (AUTO) 2 % (4-12); NEUTROPHILS % (AUTO) 63 % (40-74)
[2017-07-30 06:09] LABS: INR 1.18 ratio
[2017-07-30] MEDS: 0.9% Sodium Chloride 1,000 ML IV SCH ×3 (06:09→23:31)
[2017-07-30] MEDS ORDERED: 0.9% Sodium Chloride 1,000 ML IV ONE (07:55)
[2017-07-30] MEDS ORDERED: Ketamine 10 mg/mL 20 mL Inj ONE (08:54)
--- NOTE | 2017-07-30 09:25 | ABG ---
DateTimeAnalyzed 09:18:00 -_ pH ____7.104 - 7.350 7.450 pCO2 ___63.7__ -mmHg 35.0 45.0 pO2 ___66.6__ -mmHg 69.0 116 HCO3- ___19.1__ -mmol/L 22.0 26.0 ABE __-10.0__ -mmol/L -2.0 2.0 tHb ____8.5__ -g/dL 12.0 18.0 O2Hb ___89.4__ -% COHb ____1.5__ -% 0.0 1.5 MetHb ____0.9__ -% 0.4 1.5 sO2 ___91.6__ -% 25.0 FIO2 ___35.0__ -% Drawn By as - Date/Time Notified____ 09:25:00 -_ Spontaneous_RR ___12.0__ -b/min Liter_Flow ____3.0__ -L/min Oxygen Device 1 __CANNULA - Notified By ams - Notified Whom Dr Hasandras - B 755 -mmHg tO2 ___10.8__ -Vol% Zoltan test _Positive -
[2017-07-30] MEDS ORDERED: Albumin 25% 25 GM in IV Premix 1 EACH IV ONE (09:40)
[2017-07-30] MEDS: Insulin LISPRO 300 Unit/3 mL Inj SUBQ SCH ×4 (10:00→22:00)
--- NOTE | 2017-07-30 10:33 | CONS ---
[address] [address] CONSULTATION REPORT PATIENT: PO DELGADO : 1975 MR#: [id number] ADMIT: 07/29/2017 JOB ID: [id number] DATE OF SERVICE: 07/30/2017 HISTORY: The patient is a rather unfortunate 42-year-old, gentleman who is well known to me from multiple previous inpatient and outpatient evaluations. He has a history of chronic kidney disease and was recently readmitted yesterday for shortness of breath, cellulitis, and acute on chronic kidney injury. Renal consultation is being sought for further evaluation and management of his renal issues. He has a history of super morbid obesity with a body mass index of about 80. He had been seen by an outside head control clerk sometime ago and was diagnosed with IgA nephropathy, however there was no biopsy done at that time during that hospitalization a number of months ago. Our service was consulted and after evaluating him it was my feeling that his chronic kidney disease and nephrotic syndrome was secondary to obesity related focal segmental sclerosis. Because of his super morbid obesity a renal biopsy was not possible. He is in the process of being evaluated for gastric bypass surgery for morbid obesity. He also has a history of chronic and severe venous insufficiency and lymphedema involving both lower extremities with chronic recurrent cellulitis of the distal lower extremities, but also his lower abdominal pannus. He has had a number of appointments in my office that he has been unable to attend because of multiple hospitalizations. During my evaluation this morning he was somewhat somnolent because he is experiencing an acute respiratory and metabolic acidosis. Much of the history has been obtained from the patient's son. He continues to have minimal activity owing to his chronic fluid retention, but also due to exogenous obesity. He is normally on a BiPAP machine. His son states that he has had increasing fluid retention with fluid loss from multiple lesions on his distal lower extremity. He has also had some recent onset of shortness of breath, but no chest pain. He also states that he has had some worsening of his lower leg pain more pronounced on the right as compared to the left. This was associated with shortness of breath, fever, chills, and lightheadedness. This is consistent with his prior episodes of cellulitis. Because of his super morbid obesity, we were unable to get a V/Q scan or CT angio and he was empirically started on anticoagulants. At the time of admission, his creatinine was 4.54 which is worsening from his previous baseline creatinine of about 3. Over the night he has had some drops in his blood pressure and has been given several boluses of IV fluid. This morning, his creatinine has risen to a level of 5.8. Infectious Disease has been consulted, and he has empirically been started on ceftriaxone and clindamycin. There is no associated related nausea, vomiting, or diarrhea. PAST MEDICAL HISTORY: Significant for chronic kidney disease secondary to obesity related focal segmental sclerosis, super morbid obesity, severe venous insufficiency with chronic cellulitis and lymphedema, hypertension with hypertensive heart disease, and hypertensive nephrosclerosis with congestive heart failure, hyperlipidemia, rheumatoid arthritis, prediabetes, and severe chronic obstructive sleep apnea. PAST SURGICAL HISTORY: Significant for cholecystectomy and hernia repair. ALLERGIES: He is allergic to: 1. LEVOFLOXACIN. 2. LINEZOLID. 3. VANCOMYCIN. SOCIAL HISTORY: He is currently on disability and has great difficulties in ambulation. He denies use of alcohol, tobacco, or illicit drugs. He lives with his family. REVIEW OF SYSTEMS: Detailed above. MEDICATIONS: At time of admission include: 1. Amlodipine. 2. Oxycodone. 3. Sertraline. These medicines are markedly different than the medicine he had been on the last time I saw him. FAMILY HISTORY: Remarkable for diabetes, stroke, and hypertension. PHYSICAL EXAMINATION: Revealed a super morbidly obese gentleman who was arousable, but quite somnolent during my evaluation. His blood pressure was 83/47 with a pulse rate of 100. His pulse ox was 90%. HEENT examination was remarkable for pale sclerae and some mild conjunctival injection. Sclerae, cornea, pupils, and extraocular muscles were within normal limits. Neck is supple without adenopathy, thyromegaly, and I could not assess his jugular venous distention due to morbid obesity. Lungs showed a few scattered rhonchi with poor inspiratory effort. Heart sounds were noted and appeared normal. Abdomen is markedly distended, but not tense and there was no evidence of any fluid wave. He has chronic panniculitis throughout to the lower half of his abdomen and there was evidence of diffuse exudate and erythema throughout the lower abdomen. Extremities showed diffuse edema throughout both proximal and distal lower extremities with numerous excoriations and tree bark like characteristics of his skin in the distal extremities. He also had evidence of associated lymphedema. Skin turgor was good and there did not appear to be any rashes. LABORATORY EXAMINATION: This morning his white count is 21.3, hemoglobin 8.3, hematocrit 27.6, red cell indices were remarkable only for some mild hypochromasia and his differential was remarkable for 32 bands and 1 metamyelocyte. His sodium is 133, potassium 5.0, chloride 101, bicarbonate 16. BUN and creatinine were 41 and 5.83. His albumin this morning is 2.1 and procalcitonin is 89. Streptozyme test was markedly positive at 405. Urinalysis showed a specific gravity 1.025, pH was 6.5. Tests for protein and blood were both positive. He had packed RBCs and occasional red cells per high-power field. Arterial blood gas was consistent with her respiratory and metabolic acidosis. IMPRESSION: 1. Acute on chronic kidney injury secondary to acute streptococcal glomerulonephritis versus sepsis. 2. Focal segmental sclerosis secondary to obesity. 3. Mixed metabolic and respiratory acidosis. 4. Anemia secondary to chronic kidney disease. RECOMMENDATION: I would like to check a C3 and a C4 and also recommend giving him several doses of albumin 25 mg. I will go ahead and write those orders. I would also strongly recommend a wound care consultation for treatment of his lesions on his legs and his pannus. I would like to try to maintain his systolic blood pressure of at least upper 90 to 100 range. Once again, I would like to thank you for allowing me to participate in the care of this rather unfortunate patient. I will be following him closely with you.
[2017-07-30 11:02] LABS: Magnesium 1.7 mg/dL (1.6-2.6); Phosphorus 7.8 mg/dL (2.5-4.9)
[2017-07-30] MEDS: Clindamycin 900 mg/50 mL D5W IV SCH ×3 (12:06→23:31)
--- NOTE | 2017-07-30 12:22 | DRSVH ---
PROCEDURE: X-RAY CHEST ONE VIEW, PORTABLE ([id number]) INDICATIONS: acute hypoxic hypercapnic respiratory failure TECHNIQUE: One view of the chest was acquired. COMPARISON: [facility], CR, XR CHEST 1VW (PORTABLE), 07/29/2017, 9:30. FINDINGS: Surgical changes and devices: None. Lungs and pleura: No pleural effusions or pneumothorax. Elevation of the right hemidiaphragm is red emonstrated. There is increased pulmonary edema bilaterally. Mediastinum: Mediastinal contours appear unchanged. Heart size is enlarged. Bones and chest wall: No suspicious bony lesions. Overlying soft tissues appear unremarkable. IMPRESSION: 1. Increased pulmonary edema. Dictated by: Norberto Lagos M.D. on 07/30/2017 at 12:20 Approved by: Norberto Lagos M.D. on 07/30/2017 at 12:21
--- NOTE | 2017-07-30 12:43 | NUR ---
BP/LOC/Transfer Pt's BP 83/47, Pt's ABG Ph decreased again and Pt increasingly somnolent as am progressed, at bedside. Pt given 1000mL IV NS bolus + IV albumin and order placed to transfer Pt down to CCU, Pt's family notified. Pt just transferred from PCC room 2000, report completed with receiving RN Love Aden.
[2017-07-30] MEDS ORDERED: Propofol Inj 1,000,000 MCG in IV Premix 1 EACH IV SCH ×2 (13:01→13:31)
[2017-07-30] MEDS ORDERED: fentaNYL 2,500 mCg/250 mL Premix IV ONE (13:24)
[2017-07-30] MEDS ORDERED: Albumin 25% 50 GM in IV Premix 1 EACH IV ONE (13:30)
[2017-07-30] MEDS ORDERED: Phenylephrine/NS-PF 100 mCg/mL 5 mL Syringe IVPUSH PRN (13:30)
[2017-07-30] MEDS ORDERED: Meropenem Inj 2,000 MG in 0.9% Sodium Chloride 100 ML IV ONE (13:35)
--- NOTE | 2017-07-30 13:51 | DRSVH ---
PROCEDURE: X-RAY CHEST ONE VIEW, PORTABLE ([id number]) INDICATIONS: ET placement TECHNIQUE: One view of the chest was acquired. COMPARISON: [facility], CR, XR CHEST 1VW (PORTABLE), 07/30/2017, 11:51. FINDINGS: Surgical changes and devices: An endotracheal tube is identified with the tip located at least 15 mm above the level of the abdiel. However, the abdiel is not well-seen on this exam. A nasogastric tub e is seen extending below the diaphragm. Lungs and pleura: There are low lung volumes, which does result in difficulty evaluating the lungs fo r subtle abnormalities. Elevation of the right diaphragm is noted. The pulmonary vasculature is inc reased. Increased density within the infrahilar region on the left is noted. No definite pneumothor ax is appreciated. Mediastinum: Mediastinal contours appear normal. Heart size is normal. Bones and chest wall: No suspicious bony lesions. Overlying soft tissues appear unremarkable. IMPRESSION: 1. The endotracheal tube is positioned at least 1.5 cm above the abdiel. 2. Low lung volumes. 3. Pulmonary vascular congestion/edema. 4. Mild atelectasis versus pneumonia at the left lung base.3 Dictated by: Arie Blake M.D. on 07/30/2017 at 12:47 Approved by: Arie Blake M.D. on 07/30/2017 at 12:50
[2017-07-30] MEDS: fentaNYL 2,500 mCg/250 mL 2,500 MCG in IV Premix 1 EACH IV SCH (14:06)
--- NOTE | 2017-07-30 14:45 | PCM.PROC ---
Procedure Note Date of Service: Jul 30, 2017 Pre Procedure Diagnosis: Acute on chronic respiratory failure requiring mechanical ventilation Post Procedure Diagnosis: Acute on chronic respiratory failure requiring mechanical ventilation Procedure: Orotracheal intubation Indication for Procedure: Acute on chronic respiratory failure Procedural Analgesia: 4mg Midazolam, 50mg Ketamine, 14mg Etomodate, 100mg Succinylcholine IVP Procedure Details: Patient was preoxygenated by BIPAP for greater than 5 minutes in an upright position. Upon reclining, BIPAP was removed in place of gentle bag-mask support. IV induction agents were introduced in a rapid sequence fashion. A MAC 4 equivalent blade was used on a video laryngoscope to identify the glottis , facilitating an 8.0 suction OETT with stylet without difficulty. 7ml air used to fill cuff, with positive bilateral breath sounds, Positive calorimetric ETCO2. The patient tolerated the procedure well; was left in stable position. Specimen: N/A Post Procedure Plan: Pt was turned over to the managing primary and ICU team, who were in attendance during airway securement. Hardeep Ortiz DO Jul 30, 2017 14:45
[2017-07-30] MEDS ORDERED: Norepinephrine 8,000 mCg/250 mL NS Premix IV ONE (15:19)
--- NOTE | 2017-07-30 16:03 | DRSVH ---
PROCEDURE: X-RAY CHEST ONE VIEW, PORTABLE ([id number]) INDICATIONS: IJ PLACEMENT TECHNIQUE: One view of the chest was acquired. COMPARISON: [facility], CR, XR CHEST 1VW (PORTABLE), 07/30/2017, 13:20. FINDINGS: Surgical changes and devices: There has been interval placement of a right-sided central line cathete r with the tip overlying the high superior vena cava. The endotracheal tube is unchanged in position . Nasogastric tube is seen extending below the diaphragm. Lungs and pleura: The aeration of the lungs is similar to the prior study with prominent elevation of the right diaphragm and hypoventilation. Prominent pulmonary vascularity is evident within the ruth hilar regions. There may be mild airspace disease within left infrahilar region. Mediastinum: Mediastinal contours appear normal. Heart size is normal. Bones and chest wall: No suspicious bony lesions. Overlying soft tissues appear unremarkable. IMPRESSION: 1. Right-sided central line catheter is positioned with the tip overlying the high superior vena cav a. 2. Aeration of the lungs is unchanged. Dictated by: Arie Blake M.D. on 07/30/2017 at 15:00 Approved by: Arie Blake M.D. on 07/30/2017 at 15:01
--- NOTE | 2017-07-30 16:09 | PCM.PROC ---
Procedure Note Date of Service: Jul 30, 2017 Pre Procedure Diagnosis: Severe sepsis with Septic shock Acute hypoxic hypercapnic respiratory failure Possible pulmonary emboli Acute kidney injury on chronic kidney disease Possible focal segmental glomerular sclerosis Post Procedure Diagnosis: Severe sepsis with Septic shock Acute hypoxic hypercapnic respiratory failure Possible pulmonary emboli Acute kidney injury on chronic kidney disease Possible focal segmental glomerular sclerosis Procedure: Right internal jugular central line placement Provider and Cloth Drier: Luz Maria Devi D.O. Indication for Procedure: Intravenous access given critically ill Procedural Analgesia: 2 mL of 1% lidocaine into the subcutaneous tissue Procedure Details: Prior to the procedure a time-out was completed verifying correct patient, procedure, and site. To start the patient was given a bolus of lorazepam 2mg IV as well as 1% lidocaine 2mL subcutaneous infusion. Next each lumen of the triple lumen 9 latvian catheter was evacuated of air and flushed with sterile saline. The patient's right internal jugular was then evaluated using ultrasound to visualize the jugular and carotid anatomy. The patient was placed in a dependent position appropriate for central line placement based on the right internal jugular vein to be cannulated. The patients right neck was prepped and draped in sterile fashion. A triple lumen 9-Libyan catheter was introduced into the the right internal jugular using the Seldinger technique and under ultrasound guidance. The catheter was threaded smoothly over the guide wire and appropriate blood return was obtained. The catheter was then secured in place to the skin using a sterile sterile silk suture due being unable to secure the catheter with Tegaderm due to the patient's perspiration. A follow up chest xray was performed and the catheter tip was determined to be located as deep as possible inside the chest likely in the right subclavian. Dr. Varela and Dr. Mckeon were present for the entire procedure. Estimated Blood Loss: 5mL The patient tolerated the procedure well and there were no complications. Attending Statement The patient was seen and examined together with Dr. De Oliveira on 07/30/17 and I agree with the history, exam and plan as outlined in the note above. Charlie Devi DO Jul 30, 2017 16:09 Luz Maria Varela DO Jul 30, 2017 16:44
--- NOTE | 2017-07-30 16:22 | PCM.PROC ---
Procedure Note Date of Service: Jul 30, 2017 Pre Procedure Diagnosis: Severe sepsis with Septic shock Acute hypoxic hypercapnic respiratory failure Possible pulmonary emboli Acute kidney injury on chronic kidney disease Possible focal segmental glomerular sclerosis Post Procedure Diagnosis: Severe sepsis with Septic shock Acute hypoxic hypercapnic respiratory failure Possible pulmonary emboli Acute kidney injury on chronic kidney disease Possible focal segmental glomerular sclerosis Procedure: Left radial arterial line placement Provider and Net Programmer Analyst: Dr. Hardeep Devi Indication for Procedure: Need for continuous blood pressure monitoring given septic shock requiring intravenous pressor support Procedural Analgesia: No local anesthetic given, patient was bolused IV fentanyl and Ativan while intubated and sedated Procedure Details: A time-out was completed verifying correct patient, procedure, site, positioning , and special equipment if applicable. Allens test was performed to ensure adequate perfusion. The patients left wrist was prepped and draped in sterile fashion. 20G Arrow arterial line was introduced into the radial artery. The catheter was threaded over the guide wire and the needle was removed with appropriate pulsatile blood return. In the process of securing the arterial line by the IV therapy team the arterial catheter was inadvertently removed from the intravascular space. Pressure was held over the original arterial line puncture for 5 minutes to control bleeding. The patients left wrist was again re-prepped and draped in sterile fashion. 20G Arrow arterial line was introduced into the radial artery. The catheter was threaded over the guide wire and the needle was removed with appropriate pulsatile blood return. The catheter was then secured in place to the skin with a sterile Tegaderm arterial line dressing applied. Perfusion to the extremity distal to the point of catheter insertion was checked and found to be adequate. Dr. Varela and Dr. Mckeon were present for the entire procedure. Estimated Blood Loss: 10mL The patient tolerated the procedure well and there were no complications. Attending Statement The patient was seen and examined together with Dr. De Oliveira on 07/30/17 and I agree with the history, exam and plan as outlined in the note above. Charlie Devi DO Jul 30, 2017 16:22 Luz Maria Varela DO Jul 30, 2017 16:37
[2017-07-30] MEDS ORDERED: Meropenem Inj 1,000 MG in 0.9% Sodium Chloride 100 ML IV SCH (16:30)
[2017-07-30] MEDS ORDERED: LORazepam 100 mg/100 mL NS 100 MG in IV Premix 100 EACH IV SCH (16:33)
[2017-07-30] MEDS ORDERED: Sodium Chloride LOK Flush 10 mL Syringe IVFLUSH PRN ×2 (16:45)
--- NOTE | 2017-07-30 16:45 | CONS ---
[address] [address] CONSULTATION REPORT PATIENT: PO DELGADO : 1975 MR#: [id number] ADMIT: 07/29/2017 JOB ID: [id number] DATE OF SERVICE: 07/30/2017 INFECTIOUS DISEASE CONSULTATION: I thank Dr. Charlie Devi for this timely consult. REASON FOR CONSULTATION: Apparent septic shock, likely related to recurrent soft tissue infections occurring in the setting of super morbid obesity. HISTORY OF THE PRESENT ILLNESS: The patient is extremely unfortunate 42-year-old gentleman well known to me from innumerable admissions and outpatient clinic visits. The patient's complex medical problems revolve around his extraordinary obesity in that he weighs greater than 300 kg and has a BMI greater than 90. This renders him nonambulatory and he has chronic and recurrent infections of his lower extremities, and in particular his left lower extremity. Not surprisingly, both his legs are prone to lymphedema and he has tremendous stasis in both lower extremities on the basis of his weight. The patient has had many admissions over the past few years for recurrent soft tissue infections and in many of these there has been some component of what appears to be streptococcal infection, sometimes associated with what appears to be septic shock. Many of these episodes have also been associated with decrements in renal failure, some of which do not completely recover following each stay in the unit. We have tried to prophylax this patient with oral penicillins, as well as clindamycin, but to no avail. He has been under evaluation for gastric bypass surgery. This admission occurred yesterday afternoon when the patient presented with right lower extremity pain and/or itching. He has told some interviewers that he had pain in the right leg which was quite severe and to other people he reported it was more of an itch. In any event, this started just yesterday and this pain and/or itching began to envelop his entire right lower extremity, and perhaps was associated with some numbness. He told one observer at least in the ED that this pain was 8/10. He then experienced some fever, some chills, shortness of breath, and lightheadedness. He was evaluated and admitted to this hospital and started on appropriate antibiotics, which initially included ceftriaxone and clindamycin based on appropriate concerns about severe beta hemolytic strep infections. Overnight and this morning the patient deteriorated considerably from a respiratory and hemodynamic viewpoint and had to be transferred from the [facility] to the CCU, and just this afternoon was intubated because of progressive respiratory failure and hypotension. At this point the patient is no longer awake, obviously. He is intubated and sedated in the CCU, with hypotension and respiratory failure, and deepening renal insufficiency. Though no additional history is available from the patient, I have discussed this case with numerous physicians who saw him in the hours leading up to his intubation earlier today. PAST MEDICAL HISTORY: 1. Super morbid obesity with BMI as high as 91. This is at the top of where he has been the last few years and his weight has sort of varied from the upper 500s to the mid 600s and his BMI from 80 to 90s, so today's 303 kg and BMI 91 are really at the top of his extraordinary range. 2. 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 3. Lymphedema. 4. Venous insufficiency bilateral lower extremities. 5. Panniculitis. 6. Hypertension. 7. Fibromyalgia. 8. Chronic back pain. 9. Depression. 10. Sleep apnea which is clearly at least in part related to his obesity. 11. Worsening and progressive renal insufficiency. SOCIAL HISTORY: The patient is disabled by back pain and his obesity. He does not smoke or drink. He lives at home with his and three children. FAMILY HISTORY: Negative for TB in first- and second-degree relatives. REVIEW OF SYSTEMS: Cannot be done on this patient as he is intubated and sedated. PHYSICAL EXAMINATION: Reveals an extraordinarily obese gentleman lying supine in his ICU bed. He has just been recently intubated and is currently being ventilated on 70% FiO2 with 5 of PEEP and a tidal volume of 600. Examination of the head discloses no evidence of trauma. There is no conjunctivitis or scleral icterus. His oral cavity is free of thrush or hairy leukoplakia. His neck really cannot be examined due to his obesity. His lung sounds are very distant and relatively shallow bilaterally, but he is currently in reverse Trendelenburg position for placement of a central line. Cardiac tones distant but regular. Abdomen is massively obese, with a large pannus. The pannus is somewhat fibrotic and has a faint erythematous cast, but there are no bullae and it does not appear any worse than it has on prior. He has a Reddy catheter at this point. He has only peripheral IVs and attempts are underway to try and place a central line. His lower extremities are massively enlarged, as they are at baseline. He has both lymphedema and venous stasis changes. His legs are both slightly warm perhaps, but about equal, and I do not see any bullae, skin breakdown, or significant drainage to indicate which leg is infected, though they did have a bit of weeping from the left lower extremity below the knee, which is the area where he usually has problems. That said, he did report that his pain and/or itching was mainly on the right side, which would be unusual for him to say the least. His feet are rather lichenified but without any obvious evidence of infection. Neurologic exam cannot be done. I see no evidence for synovitis, but it would be difficult to determine. LABORATORIES: Include white count 21,000. When he came in yesterday to the ER 4000. Today 21,000; that includes 32% bands for an amazing 7000 bands in his peripheral smear. His creatinine has been as low as 1.2 in March. In April it was in the 2-2.5 range. During a May admission it was more around 4 and now it is all the way up to 6 essentially, at 5.96 today, indicative of chronic and progressive renal failure. LFTs normal. Albumin 2.3. Procalcitonin early this morning was 85. Urinalysis without white cells. Complement levels have been requested by the renal team. An IgG that was done a few months ago was high actually at 2384. He does have a positive IgA which would suggest that it is safe to give him IVIG should that become necessary. His streptozymes are always elevated, and going back 1-1/2 years his streptozymes have all been around 400, and they have never changed indicating constant or frequently occurring group A strep infections which are invasive to produce that level of ASO titer. Today this level is 400 but I have no idea what that means given that it has been more or less 400 on seven measurements over the last 18 months. Micro data includes negative blood cultures from this admission. MRSA screen negative from this admission. Going back over a couple years of cultures, all we ever seem to get on this patient is a variety of mixed urine cultures which probably represents colonization or difficult to obtain specimens. We do not obtain typical Staph or Strep organisms from blood or other cultures from his leg, but there is usually very little there to be cultured and we are forced to rely on the serologic studies. IMAGING: Chest x-ray today was reviewed on the view screen. It shows very small lung volumes. Whether or not there could be pulmonary edema or atelectasis is very difficult to tell. IMPRESSION: This is yet another in a series of very frequent ongoing admissions for this super morbidly obese gentleman with recurrent soft tissue infections of the leg. Whether or not this episode is a streptococcal toxic shock syndrome arising from one or both of his legs is difficult to determine, but I think that is the most likely diagnosis. He is also at significant risk for cardiac disease or pulmonary embolism, but these will be difficult to determine, and especially pulmonary embolism difficult to rule out in this gentleman who cannot have a CT scan or presumably a ventilation/perfusion scan either because of his size. At this point I think we should maximize antibiotics aimed at likely pathogens for life-threatening soft tissue infections. Will also have good coverage for pneumonia just as a spillover from that, as well as for that matter meningitis. RECOMMENDATIONS: 1. I would treat the patient with meropenem with a full loading dose followed by 1 g a day as well as clindamycin to be adjusted for his morbid obesity and daptomycin 1 g q.48 hours. 2. Note the dosing of daptomycin in the super morbidly obese is an uncertain science and we are splitting the difference between treating by ideal body weight and treating by actual body weight with the 1 g dose. There is just no data about using higher doses. 3. IVIG could be considered here, but the recent reviews of this topic and expert opinion have suggested this may not be as valuable as was once thought and I think, given the intrinsic risk and expense of doing this, it is best withheld at this point. 4. If there were any way to image his lower extremities with an MRI scan I think that might be helpful but I doubt that any facility within a reasonable distance could perform such a study. 5. This case discussed with the ICU team. Thank you very much.
--- NOTE | 2017-07-30 17:22 | DRSVH ---
[facility] [address] [place] [address] Echocardiogram Report Name: PO DELGADO Study Date: 07/30/2017 Height: 72 in Hospital Exam Location: [facility] Weight: 670 lb Gender: Male BSA: 3.6 m2 : 1975 Age: 42 yrs BP: 86/59 mmHg Reason For Study: SOB Ordering Physician: Performed By: Diana St Referring Physician: Supa Alegria Interpretation Summary Normal sinus rhythm. Normal LV size and wall thickness. There is septal dyskinesis. otherwise normal wall motion. EF is 60-65%. There is moderate RV dilation with normal RV function. Otherwise normal chamber sizes. Aortic sclerosis without stenosis. Otherwise no significant valvular abnormalities. Estimated PA systolic pressure is 71 mm Hg assuming RA pressure of 20 mm Hg. Compared to prior study 11/06/2016, mild RV dilation is new. Elevated PA systolic pressure is new. Dyskinetic septum is new. Findings are concerning for PE. Procedure: A two-dimensional transthoracic echocardiogram with color flow and Doppler was performed. The study quality was technically adequate. Comparison is made with the echocardiogram of 11/06/2016. A contrast injection of Definity was performed to improve assessment of LV function. The patient was in normal sinus rhythm during the exam. Left Ventricle: The left ventricle is grossly normal size. Flattened septum is consistent with RV pressure/volume overload. Assessment of diastolic parameters indicates normal left ventricular diastolic function and normal filling pressures. Right Ventricle: The right ventricle is moderately dilated. The right ventricular systolic function is normal. Mitral Valve: The mitral valve is grossly normal. Aortic Valve: The aortic valve opens well. No aortic regurgitation is present. Tricuspid Valve: There is mild tricuspid regurgitation. Pulmonic Valve: The pulmonic valve is not well seen, but is grossly normal. Great Vessels: The pulmonary artery is normal size. The IVC has a measurement of 3.8 mm. Inspiratory collapse cannot be assessed because of mechanical ventilation, thus CVP cannot be estimated.. MMode/2D Measurements & Calculations LVIDd: 5.2 cm IVC diam LV olson. diameter/BSA LV sys. diameter/BSA LVIDs: 3.2 cm : 3.8 cm (cm/m^2): 1.5 (cm/m^2): 0.91 FS: 38.2 % RVD1 (basal) TAPSE : 2.2 cm Doppler Measurements & Calculations Ao V2 max MV E max saturnino MV E/A: 1.2 TR max saturnino : 171.4 cm/sec : 94.5 cm/sec Med Peak E' Saturnino : 356.4 cm/sec Ao max PG MV A max saturnino TR max PG : 11.8 mmHg : 80.4 cm/sec E/E' med: 11.7 : 50.8 mmHg Ao mean PG MV P1/2t: 57.7 msec Lat Peak E' Saturnino PA V2 max : 100.9 cm/sec LVOT Max Saturnino E/E' lat: 7.0 PA mean PG : 98.5 cm/sec E/e' average: 9.4 sev ratio PA Accel Time : 0.06 sec MV dec time MV P1/2t max saturnino Ao V2 mean LV V1 max PG : 0.20 sec : 105.5 cm/sec Ao V2 VTI: 24.9 cm LV V1 VTI: 18.5 cm MVA(P1/2t): 3.8 cm2 PA V2 mean : 63.5 cm/sec Reading Physician:05:21 PM
--- NOTE | 2017-07-30 17:28 | NUR ---
Social Work: Attempted Assessment/EMR review D: GENERATING PLANT SUPERINTENDENT is unable to complete initial assessment with the patient at this time as pt is currently in CCU status, vented. No family present at this time. Per EMR review, pt resides in [place] with his family. Pt is morbidly obese with a current BMI of 90.9kg, wt 303.900 kg. The patient is primarily non-ambulatory and previous visit reports from case management state that the patient has an electric scooter in which is his primary mode of ambulation. The patient also has a walker for use as well and has a BIPAP for home use. The patient is dependent on his for cooking, meal prep and chores. The patient has been followed by the wound care center in the past for his recurrent cellulitis. The patient is currently being followed by the CCU team including infectious disease, pulmonology, nephrology and wound care. Patients weight has already posed barriers to obtain necessary imaging, per progress notes. Patient's weight could pose significant barriers to discharge as well as many local and out of county rehab facilities do not have the equipment and staffing to manage a patient of this BMI. A: Pt who is in CCU status. P: GENERATING PLANT SUPERINTENDENT will continue to follow and attempt to complete assessment with family when they are present. SAÚL Verde
[2017-07-30 17:51] LABS: APPEARANCE,URINE TURBID (CLEAR,HAZY); COLOR,URINE DARK YELLOW (YELLOW); OCCULT BLOOD,URINE LARGE (NEGATIVE); PH,URINE 6.5 (5.0-8.0)
[2017-07-30] MEDS: DAPTOmycin Inj 1,000 MG in 0.9% Sodium Chloride 50 ML IV SCH (18:04)
[2017-07-30] MEDS: Norepineph 8,000 mCg/250 mL NS 8,000 MCG in IV Premix 1 EACH IV SCH ×2 (18:08→20:24)
--- NOTE | 2017-07-30 19:13 | NUR ---
P: Respiratory Distress I: Pt transferred to CCU after receiving report from Wang Lainez. Pt on Bipap when he arrived and extremely lethargic. Anesthesia arrived to intubate pt. Pt intubated without difficulty. Fentanyl gtt started at 100 mcqs now 150mcqs. Pt BP was low when he arrived and dropped lower and at bedside. Neosynephrine pushes given per Dr. Mckinney verbal order. After pt intubated RIJ TLC and Left radial arterial line done. ETT and OGT tubes CXR done to check position. After RIJ done CXR completed to check position. Once position checked Norepinephrine gtt started at 0.3 mcqs and is now 0.4 mcqs. Ativan gtt started and is infusing at 2mg/hr. Reddy placed with much difficulty by with 3 physicians and 2 nurses to assist. 30 cc of dark thick brown urine sent to lab. So far no other urine output. Echo done and results indicate a clot. Heparin off for placement of lines. restarted it at 1730 at previous rate of 18units/kg/hr. Next PTT 2330 and it is ordered and passed on to oncoming RN to draw. Blood sugar 127 at 1730 and no coverage needed. Dr. Varela at bedside and discussed pt's condition and plan of care with pt's and family. Pt restless at times and sits up in bed so a few bolus of sedation and pain medication was given as needed with MD's at bedside. Dr. Eddy at bedside and looked at pt's legs and adjusted IV antibiotics. No BM . NPO. SCD's are contraindicated due to legs sores and condition. E: Stable S: Restraints applied at [address] Mckeon at bedside and order received. Frequent rounding.
--- NOTE | 2017-07-30 19:52 | CONS ---
[address] [address] CONSULTATION REPORT PATIENT: PO DELGADO : 1975 MR#: [id number] ADMIT: 07/29/2017 JOB ID: [id number] DATE OF SERVICE: 07/30/2017 REASON FOR CONSULTATION: Hypoxemic hypercarbic respiratory failure. REQUESTING PHYSICIAN: Michael Walton MD. HISTORY OF PRESENT ILLNESS: The patient is a 42-year-old male who apparently presented with some increasing pain in his right leg. Because of his morbid obesity with the patient weight of 303.9 kg with a BMI of 90.9, he was started on IV heparin as there were no ways to proceed with any studies. His respiratory status, however, has deteriorated over the past few hours. The patient was somewhat tired yesterday. Now very lethargic and barely arousable. Currently, arouses only to painful stimuli. No other details are available from the patient himself. Review of the chart indicates that he has a history of chronic kidney disease which has been rapidly progressive recently. Has cellulitis and super morbid obesity. Has a history of chronic venous insufficiency and lymphedema involving both lower extremities with constant recurrent cellulitis. Family members described him as having some increasing shortness of breath recently. No chest pain. Some worsening of the lower leg pain more pronounced on the right compared to the left. Associated with shortness of breath, fever, chills and lightheadedness. Last baseline creatinine was 3, currently on admission was 4.54. The patient has been seen by Infectious Disease and started on ceftriaxone and clindamycin. PAST MEDICAL HISTORY: Listed as having hypertensive heart disease, hypertensive nephrosclerosis, hyperlipidemia, rheumatoid arthritis, prediabetes and severe chronic obstructive sleep apnea. ALLERGIES: 1. LEVOFLOXACIN. 2. LINEZOLID. 3. VANCOMYCIN. SOCIAL HISTORY: Denies use of alcohol, tobacco and illicit drugs. MEDICATIONS ON ADMISSION: 1. Amlodipine. 2. Hydrocodone. 3. Sertraline. PHYSICAL EXAMINATION: Shows a temperature of 37.1, pulse of 104, respiratory rate 20, blood pressure 83/47, O2 sat on BiPAP with an inspiratory positive airway pressure of 20 and expiratory positive airway pressure of 7, delivering tidal volumes of about mid 600s. With the patient propped upright to some extent, tidal volume increased to 800-850. Minute ventilation was about 12 L at that point. Eyes: Conjunctivae somewhat suffused. The patient again was minimally responsive to painful stimuli. Chest: Markedly diminished breath sounds due to the thickness of the chest wall. Relatively clear. Heart: Distant heart tones. Regular rhythm. Abdomen soft. No apparent tenderness. Huge pannus extending to the mid thigh. Skin: Shows chronic stasis changes both lower extremities with nodular cauliflower-like appearance. Tattoos of left and right arm and upper chest. Review of intertriginous areas showed the periscrotal areas to be in reasonable shape. Various folds of the lower abdomen were explored without egregious changes. Only slightly foul smell. Rest of the skin looked in reasonable repair. LABORATORY DATA: Shows a white count of 4400 on admission, 21,300 today. Moderate neutrophilia has turned into marked left shift with 63 polymorphonuclears, 32 bands, 1 metamyelocyte, 2 lymphocytes. Hemoglobin relatively stable at 8.3. Platelet count stable at 243,000. Sodium 133, potassium 5.2, chloride 100, CO2 16, BUN 44 and stable. Creatinine 5.96 and rising being 4.5, 24 hours previously. Calcium 7.2 with an albumin of 2.3. Patient has already being given some albumin. Total bilirubin 0.2. Transaminases are normal at 14 AST, 6 ALT, alkaline phosphatase normal at 56. PTT was 85.4 seconds this morning with the patient on a heparin drip. The patient was extremely lethargic and barely arousable. Arterial blood gases on unknown concentration of oxygen and unknown delivery showed a pO2 of 66, pCO2 of 63, pH 7.10. He currently is on BiPAP with tidal volumes of mid 600s rising to 800 after he was placed in the upright position. In spite of this, his mental status is not improving. Ventilation was about 12-13 L a minute. Chest x-ray shows elevation of the hemidiaphragms more so on the right. Overlying soft tissues present. Venous duplex study was a limited exam. Left common femoral vein could not be visualized. Unable to exclude DVT. No evidence of deep venous thrombosis of the left superficial femoral vein or popliteal vein. Right common femoral vein was not visualized nor could it be evaluated. The deep veins were compressible and free of intraluminal thrombus on the right. ASSESSMENT: The patient is extremely lethargic and almost unarousable. He has been on CPAP for a good 2.5 hours. At this point, I think he should be moved to the intensive care unit and intubated expeditiously. Given his morbid obesity, I think Anesthesia should be contacted as the most expert intubator should be involved in this fragile gentleman's intubation. Blood pressure at this point was in the 80s over 40s. He was given some fluid. Apparently intubated without difficulty. He remained hypotensive. Given some fluid. Due to only peripheral access, he was treated with phenylephrine via left upper extremity peripheral vein. Much of the afternoon was spent placing lines. Had a right IJ placed. Right radial arterial line was placed. A stat echocardiogram was arranged. Throughout line placement, he would be intermittently given 50-100 mcg of phenylephrine to maintain a reasonable blood pressure. Fluid was administered initially given a bolus with some improvement. Subsequently started on saline at 175 mL an hour. After central access was obtained, the patient was started on norepinephrine with reasonable blood pressure response. Spoke with Renal service about fluids. We decided to give him a bit of albumin which he has already received and also supplement this with IV saline. Would like to keep the saline to a minimum. Also, need to try to avoid sedatives as much as we can. However, he is quite anxious on the ventilator. Given fentanyl with variable response. Subsequently, given low doses of Ativan. Arterial line placed. We will be obtaining blood gases and place Vigileo monitor to help us guide pressors and fluids. Hypertension. Very likely has obesity hypoventilation syndrome with pulmonary hypertension, right ventricular failure. Will have to be judicious with fluids. However, I also suspect the patient has septic shock with the marked increase in his white count, bandemia, low blood pressure and high procalcitonin. Will try fluids and pressors. Once central line is placed, will give norepinephrine. We will try to place an arterial line which will help us with accurate measurement of blood pressure as well as allow us to do Vigileo hemodynamic monitoring. PLAN: 1. Transfer to ICU with the patient to be intubated by anesthesiologist if they are available. 2. Central line placement. 3. Placement of radial arterial line. 4. Reddy catheter. 5. Broad-spectrum antibiotics as per Infectious Disease. 6. Volume ventilation. Will obtain arterial blood gases when we have him settled. Repeated discussions with the primary care team. Also spoke with Renal service as well as Infectious Disease. Total time spent so far in critical care well over 3 hours. Thank you so much, Dr. Walton, for asking the Pulmonary service to see this most critically ill individual.
--- NOTE | 2017-07-30 21:01 | PCM.PNMED ---
Subjective Date of Service Jul 30, 2017 Subjective Du Flannery is a 42 year old male recurrent leg cellulitis, severe bilateral lymphedema, hypertension, chronic pain, obstructive sleep apnea who presents to [facility] emergency department with increased redness on left leg and shortness of breath. This morning, patient was very somnolent. His ABGs this morning showed pH 7.1, pCO2 63.7, pO2 66, HCO3 19 and patient was on Bipap FiO2 at 100%. Throughout the morning he remained lethargic and he was transferred to CCU and intubated without difficulty as a result. An IJ line on the right and a left radial arterial line were placed. Patient was given norepinephrine as his blood pressures declined. He was given fentanyl and propofol for sedation. There were no acute events overnight. ROS was unobtainable as patient was very somnolent Exam Vital Signs Vital Sign - Last Date Time Temp Pulse Resp B/P Pulse Ox O2 Delivery O2 Flow Rate FiO2 07/30/17 09:28 36.6 101 20 83/47 90 Nasal Cannula 3.00 07/29/17 18:09 35 Intake and Output 07/29/17 07/29/17 07/30/17 Cumulative From/Thru 15:00 23:00 07:00 07/29/17 08:35 - 07/30/17 06:24 Intake Total 1000 ml 1138 ml 2790 ml 4928 ml Output Total 200 ml 100 ml 300 ml Balance 800 ml 1038 ml 2790 ml 4628 ml Intake Oral 510 ml 793 ml 1303 ml IV Total 1000 ml 628 ml 1997 ml 3625 ml Output Urine Total 200 ml 100 ml 300 ml # Voids 1 1 Exam General: Patient is a morbidly obese male, lying with head propped upright on bed, initially on Bipap but was later intubated. HEENT: head normocephalic and atraumatic, PERRLA, EOMI, no scleral icterus, noninjected conjunctiva Neck: neck supple, non-tender, no lymphadenopathy, trachea midline, no JVD CV: regular rate and rhythm but heart sounds are very distant, radial pulses are palpable bilaterally, no murmurs Lungs: lung sounds are also distant and appears to be decreased bilaterally Abdomen: pannus is massive, evidence of small laceration on left side of abdomen , covered by panus, normoactive bowel sounds, soft, and very tympanic to percussion Skin:warm and dry Extremities: significant lymphedema with tree-bark appearance of lower extremities bilaterally, Right leg is bigger in size compared to left leg, evident erythema and induration noted Neuro: unable to assess as patient is very somnolent Psych:unable to assess as patient is very somnolent : Reddy catheter later placed IVs and Medications Medications Reviewed: Medications were reviewed in detail Medications High-risk medications include norepinephrine, fentanyl, propofol Lab and Diagnostics Result Diagram: 07/30/17 0530 07/30/17 0530 X-Rays, CTs and MRIs X-RAY CHEST ONE VIEW, PORTABLE IMPRESSION: 1. Borderline prominence of the heart with mild to moderate vascular congestion. 2. Left infrahilar density probably represents atelectasis. Please correlate clinically to exclude pneumonia. Approved by: Arie Blake M.D. on 07/29/2017 at 8:53 Cardiac Echo Impressions ECHO on 07/30/17 Interpretation Summary Normal sinus rhythm. Normal LV size and wall thickness. There is septal dyskinesis. otherwise normal wall motion. EF is 60-65%. There is moderate RV dilation with normal RV function. Otherwise normal chamber sizes. Aortic sclerosis without stenosis. Otherwise no significant valvular abnormalities. Estimated PA systolic pressure is 71 mm Hg assuming RA pressure of 20 mm Hg. Compared to prior study 11/06/2016, mild RV dilation is new. Elevated PA systolic pressure is new. Dyskinetic septum is new. Findings are concerning for PE. Additional Diagnostics US VEINOUS LEG DUPLEX UNILATERAL, RIGHT IMPRESSION: Limited examination secondary to body habitus. The left common femoral vein not visualized and cannot be evaluated. Deep vein thrombosis involving the left common femoral vein cannot be excluded. No evidence of deep vein thrombosis involving the left superficial femoral vein or popliteal vein. Approved by: Ary Trejo MD, PhD on 07/29/2017 at 12:29 ABG pH ____7.231 - 7.350 7.450 pCO2 ___48.7__ -mmHg 35.0 45.0 pO2 ___68.5__ -mmHg 69.0 116 HCO3- ___19.7__ -mmol/L 22.0 26.0 Liter_Flow ____4.0__ -L/min Oxygen Device 1 __CANNULA - Assessment & Plan Du Flannery is a 42 year old male recurrent leg cellulitis, severe bilateral lymphedema, hypertension, chronic pain, obstructive sleep apnea who presents to [facility] emergency department with increased redness on left leg and shortness of breath. Patient has been transferred to the ICU and was intubated by the anesthesiologist and placed on volume ventilation. A right IJ line was placed in addition to a radial arterial line. Antibiotics were started per infectious disease. Patient was found to have evidence of pulmonary embolism from echocardiogram and is continuing heparin drip. Severe Sepsis with Septic Shock -WBC 21.3, 32% bands, pro-calcitonin and 85.02 -Infectious Disease, Dr. Eddy was consulted. We appreciate his input -Patient has hx of recurrent soft tissue infections of the leg. possible streptococcal toxic shock syndrome -ID started patient on meropenem with a full loading dose followed by 1 g a day as well as clindamycin to be adjusted for his morbid obesity and daptomycin 1 g q.48 hours. -Continue to monitor CBC, procalcitonin -Patient was given norepinephrine to maintain this pressures Acute hypoxic hypercapnic respiratory failure -with severe metabolic and respiratory acidosis - Possibly combined effects of obesity hypoventilation syndrome and pulmonary emboli - Noted pH of 7.23 with PCO2 of 48.7 and PO2 of 68.5 on 4 L nasal cannula in the ED - Initially, RT to place BiPAP as necessary with oxygen goals between 88 and 92 % given possibility of chronic CO2 retention. -Patient has now been intubated and is on volume ventilation -Patient received Propofol and Fentanyl, but try to avoid sedation as much as possible Acute pulmonary emboli -as evidenced by ECHO findings - Patient has lower extremity edema making clinical signs of DVT as well as LE US imaging difficult, however is notably sedentary lifestyle with with d-dimer of 1.91 and a heart rate greater than 100, with review of records indicated that the patient is not typically tachycardic at baseline, giving him a well's score of 4.5 with a moderate risk of pulmonary emboli approximately 16.2% - Given patient's body habitus and poor kidney function no ability to perform CT PE or VQ scan - Clinically the patient states he feels better after starting on a heparin drip possibly consistent with improvement with thrombolysis - Patient will be bridged on heparin drip given his kidney disease Lovenox is contraindicated, given patient's body habitus no normal anticoagulation therapy can be given, pharmacy to administer warfarin - Patient will likely need to be anticoagulated on warfarin for minimum of 6 months given this is an unprovoked PE -Continue heparin drip for medical management -If patient becomes unstable, consider TPA Acute kidney injury on chronic kidney disease with noted chronic glomerulonephritis - Previous nephrology notes indicate the patient has chronic glomerulonephritis however given body habitus and poor patient follow-up no definitive diagnosis has been made currently leaning to focal segmental glomerular sclerosis versus IgA nephropathy with the last renal ultrasound on 06/09/17 showing no hydronephrosis with right kidney measures 13.0 cm long; left kidney measures 15.3 cm long. Right renal cortical thickness is 1.7 cm; left renal cortical thickness is 1.6 cm. Renal cortical echotexture is normal. - Chronic kidney disease with currently uncertain staging given with baseline creatinine approximately 1.1-1.3 in December 2016 with consistent increases in creatinine every hospitalization since December to current admission - Creatinine of 4.54 admission, worse today with BUN and creatinine were 41 and 5.83 - Fractional excretion of sodium calculated at 0.6% consistent with prerenal causes for worsening kidney injury - Nephrology, Dr. Walton was consulted . We appreciate his input -Recommended giving him several doses of albumin 25 mg Acute on chronic cellulitis of right lower extremity - poor circulation and Lymphedema are contributing factors to recurrent infections. - White blood cell count of 4.4 notably lower than prior admissions possibly atypically consistent with infectious etiology, pro-calcitonin of 0.37 typically considered indeterminate - Pt last hospitalized on 06/11/2017 for cellulitis, left AMA, at that time ID was consulted, recommended ceftriaxone while inpatient and cefdinir 300 once per day as outpatient for minimum of 10 days, with clindamycin 300 mg p.o. b.i.d. indefinitely as prophylaxis. - Blood Culture ordered and pending - MRSA negative Hypertension, chronic, not ongoing -Patient is currently hypotensive - Monitor and hold home medication until more normotensive - Consider initiating alternative blood pressure medication to amlodipine considering chronic lower extremity edema - Avoid Poncho inhibitors given kidney disease with acute kidney injury - Consider initiating labetalol 100 mg by mouth twice a day as necessary Chronic normocytic anemia - Hemoglobin of 8.8 at admission with MCV of 83 - Likely secondary to chronic kidney disease with severe glomerulonephritis blood loss as well as poor erythropoietin production - monitor Depression, chronic - continue Sertraline 150 mg daily when able Chronic severe morbid Obesity - continue pulse oximetry - Pt to does not use CPAP at home --Patient's BMI is 90.9 Chronic pain syndrome - patient is receiving ativan for anxiety -Continue home oxycodone when able Obstructive Sleep Apnea, chronic - Patient currently intubated Chronic prediabetic [id number] - A1c of 6.3 in April 2017 - A1c ordered and pending DVT prophylaxis: Heparin drip GI prophylaxis: Not indicated CODE STATUS is full Pain Evaluation: Adequate Pain Control GI Prophylaxis: Not indicated VTE Prophylaxis: Other (heparin drip) Resuscitation Status: CPR: Attempt Resuscitation Time spent Greater than 4 hours, 240 minutes Attending Statement The patient was seen and examined together with Dr. Merritt on 07/30/17 and I agree with the history, exam and plan as outlined in the note above. Eusebia Merritt DO Jul 30, 2017 10:54 Luz Maria Varela DO Aug 01, 2017 12:54
[2017-07-31] VITALS (17 sets, daily range): BP systolic 113–159; BP diastolic 43–63; PULSE 76–113; RESP 15–23; O2SAT 96–98
[2017-07-31] MEDS: fentaNYL 2,500 mCg/250 mL 2,500 MCG in IV Premix 1 EACH IV SCH ×2 (01:05→15:45)
[2017-07-31] MEDS: Norepineph 8,000 mCg/250 mL NS 8,000 MCG in IV Premix 1 EACH IV SCH ×4 (01:06→18:43)
[2017-07-31] MEDS: Heparin 25K Unit/500mL 0.45 NS 25,000 UNIT in IV Premix 1 EACH IV SCH ×4 (03:03→23:05)
--- NOTE | 2017-07-31 05:30 | ABG ---
DateTimeAnalyzed 05:22:00 -_ pH ____7.117 - 7.350 7.450 pCO2 ___51.8__ -mmHg 35.0 45.0 pO2 113 -mmHg 69.0 116 HCO3- ___16.0__ -mmol/L 22.0 26.0 ABE __-12.4__ -mmol/L -2.0 2.0 tHb ____8.4__ -g/dL 12.0 18.0 O2Hb ___95.7__ -% COHb ____0.8__ -% 0.0 1.5 MetHb ____1.0__ -% 0.4 1.5 sO2 ___97.5__ -% 25.0 FIO2 ___70.0__ -% PRVC 600 - PEEP ___10.0__ -cmH2O Set_RR ___19.0__ -b/min Drawn By TLA - Date/Time Notified____ 05:30:00 -_ Spontaneous_RR ___19.0__ -b/min Oxygen Device 1 VENTILATOR - Notified By TLA - Notified Whom _Aime- RN - B 756 -mmHg tO2 ___11.5__ -Vol% Zoltan test N/A -
[2017-07-31 05:57] LABS: Mean Corpuscular Hemoglobin 24.9 pg (27.0-35.0); Mean Corpuscular Volume 82.7 fL (81-100); Platelet Count 284 bil/L (150-400)
[2017-07-31 06:15] LABS: INR 1.21 ratio
[2017-07-31 07:06] LABS: BASOPHILS % (AUTO) 0 % (0-3); EOSINOPHILS % (AUTO) 2 % (0-5); MONOCYTES % (AUTO) 1 % (4-12); NEUTROPHILS % (AUTO) 70 % (40-74)
[2017-07-31] MEDS: 0.9% Sodium Chloride 1,000 ML IV SCH ×2 (07:48→17:16)
--- NOTE | 2017-07-31 07:48 | NUR ---
Hypotension/Respiratory Low BP, map hovering in the low 60s-65, on levophed, attempted to weaned down levo, map dropped in the 50's, NS IVF infusing; heparin gtt down to 16 units/kg/hr, last PTT 100, no s/s of bleeding, remain on vent support w/ fio2 0.70, sp02 >95%, RASS -3, on fentanyl and ativan gtts. Moved to room 2019 from 2011 around 2000 to utilize ceiling lifts.
[2017-07-31] MEDS: Insulin Human REGular 300 Unit/3 mL Inj SUBQ SCH ×3 (08:30→20:30)
[2017-07-31] MEDS: Famotidine Inj 20 MG in IV Premix 1 EACH IV SCH ×2 (10:24→21:24)
[2017-07-31] MEDS: Chlorhexidine 0.12% 15 mL Oral Solution MUC_MEMBRM SCH ×5 (10:26→21:24)
[2017-07-31] MEDS: Meropenem Inj 1,000 MG in 0.9% Sodium Chloride 100 ML IV SCH (10:26)
[2017-07-31] MEDS: Clindamycin 900 mg/50 mL D5W IV SCH ×2 (10:27→17:06)
--- NOTE | 2017-07-31 10:36 | PROG NOTE ---
[address] [address] PROGRESS NOTE PATIENT: PO DELGADO : 1975 MR#: [id number] ADMIT: 07/29/2017 JOB ID: [id number] DATE: 07/31/2017 INFECTIOUS DISEASE FOLLOWUP NOTE: REASON FOR FOLLOWUP: Septic shock and probable streptococcal toxic shock. INTERVAL HISTORY: Overnight, the patient has remained ventilator dependent, intubated, sedated and dependent on very high-level norepinephrine to maintain his blood pressure. The patient was discussed in great detail during ICU rounds for about 20 minutes this morning and as well, the case was discussed with the family. The case was also discussed with the bedside nurse, Respiratory Therapy and others. Obviously, no additional history is available from this intubated patient. PHYSICAL EXAMINATION: Reveals a super morbidly obese gentleman, BMI 91. He is lying supine, intubated in the ICU. There is no evidence for trauma anywhere including the head and neck. Oral endotracheal tube is in place. Oral gastric tube in place, and he has this IJ line on the right which appears benign. His neck is essentially impossible to evaluate due to obesity. His lung sounds are very distant bilaterally but I do not hear much in the way of rales or rhonchi. Cardiac tones likewise extremely distant with a regular rate and rhythm. Abdomen is massively obese with a pannus. I see no evidence for panniculitis. Penis and scrotum appear relatively benign. A Reddy catheter is in place. There is a severe lymphedema and venous stasis changes of both lower extremities with some crusting but I do not see any purulence, bullae, or erythema. His feet are surprisingly well perfused. Note that the patient is on norepinephrine at 0.4 mcg/kg/minute, and this is based on ideal body weight, which in this case is 77 kg, rather than the actual 304 kg. The patient's current ventilator settings are 70% and 5 of PEEP. Note that he also has no urine output. Vital signs: He has been afebrile. Temp 36.9, blood pressure is 105/44 but that is on high-dose norepinephrine. Pulse right around 90, and O2 sats are good but, of course, he is on 70% and 5 of PEEP. LABORATORY STUDIES: Include white blood count of 20,000, still with 23% bands, so his total band count has fallen from 7000 to 5000 overnight which may or may not be significant. Will be if the trend continues. His creatinine is jumping one point today consistent with complete renal failure. Currently 6.77. Bicarb 14. LFT normal. Procalcitonin is 93 and was previously 85. I do not know what that means but I think we have established he is septic and we could probably stop checking. His blood cultures remain negative. MRSA screen negative. Urine with mixed mario. Chest x-ray done yesterday was again reviewed. It shows very low lung volumes and crowding, especially on the left, of uncertain significance. IMPRESSION: This patient remains absolutely critically ill, with profound septic shock requiring vasopressor agents, ventilator-dependent respiratory failure requiring high FiO2, complete renal failure, metabolic acidosis, no urine output and is in a very dire straits. I called the [facility]. He exceeds the weight and size requirements for CT or MRI scanning even at the [facility], so we have no way to image him and see whether he may or may not have a pulmonary embolism nor any way to image his legs to see whether or not he may have necrotizing myositis or fasciitis, which I actually suspect. Likewise, there is no indication to surgically intervene, as the exterior of his massive legs appears relatively benign and we would have no idea where or how to intervene surgically. Yesterday, we discussed intravenous immunoglobulin and its questionable role in the management of streptococcal toxic shock. Without more evidence for this diagnosis, I think use of intravenous immune globulin would probably be inappropriate in this circumstance. RECOMMENDATIONS: 1. Will continue with maximal dose daptomycin, meropenem and clindamycin. 2. Note that antibiotic and other dosing in this patient is probably unknown given his weight of over 300 kg but we are attempting to maximize efficacy while avoiding toxicity. 3. This case discussed in great detail with the family and the ICU team.
--- NOTE | 2017-07-31 10:57 | NUR ---
spiritual care: family family requesting prayer/support. bedside prayer and updates on pt's critical medical state. [employer] to follow. family welcoming also of nondenominational pastoral care. marlin, dtr grace, son miguel angel.
--- NOTE | 2017-07-31 11:29 | PCM.PNNEPH ---
Subjective Date of Service Jul 31, 2017 Subjective Overall patient's condition continues to worsen. He remains ventilatory dependent with a 70% FiO2 and 5 of PEEP. His CVP is 24 and intra-abdominal pressure is 10 mmHg. The last 24 hours he has had 4746 in and 280 out. This morning he has had minimal urine output and has started to put out a considerable amount of NG contents. His his blood pressure remains dependent upon pressors. The patient is sedated normal ventilator. His morning M shows a white count of 20.5, hemoglobin of 8.5, sodium of 137, potassium 5.1, chloride 102, bicarbonate 19, BUN and creatinine were 54 and 6.7. His C3 and C4 are both normal thus excluding acute glomerulonephritis as an etiology. Right now this appears to be more straightforward acute tubular necrosis from sepsis. Exam Vital Signs Vital Sign - Last Date Time Temp Pulse Resp B/P Pulse Ox O2 Delivery O2 Flow Rate FiO2 07/31/17 08:01 90 125/44 97 70 07/31/17 03:59 36.9 20 Mechanical Ventilator 07/30/17 09:28 3.00 Intake and Output 07/30/17 07/30/17 07/31/17 Cumulative From/Thru 15:00 23:00 07:00 07/29/17 08:35 - 07/31/17 06:47 Intake Total 100 ml 1856 ml 3436 ml 96342 ml Output Total 280 ml 705 ml 1285 ml Balance 100 ml 1576 ml 2731 ml 9035 ml Intake Oral 1303 ml IV Total 100 ml 1856 ml 3436 ml 9017 ml Output Urine Total 30 ml 5 ml 335 ml Gastric Drainage Total 250 ml 700 ml 950 ml # Voids 1 # Bowel Movements 0 0 Exam Patient remains sedated and on a ventilator. HEENT examination is remarkable for pale sclerae and arches bilateral conjunctival injection. Lungs showed scattered rhonchi and intermittent expiratory wheezes. He did have somewhat of a difficult pulmonary exam because of his massive body habitus. Heart was regular and equal. Abdomen is soft andfree fluid was noted. Bowel sounds were markedly diminished. There was no tenderness, rebound, guarding, masses, or splenomegaly. He does have evidence of hepatomegaly. His abdomen down through both lower extremities shows diffuse all large amount of chronic semi-pitting edema coupled with lymphedema. There is also diffuse erythema and induration consistent with cellulitis involving both lower pannus of the lower abdomen and cellulitis of both legs. Lab and Diagnostics Result Diagram: 07/31/17 0540 07/31/17 0540 X-Rays, CTs and MRIs X-RAY CHEST ONE VIEW, PORTABLE IMPRESSION: 1. Borderline prominence of the heart with mild to moderate vascular congestion. 2. Left infrahilar density probably represents atelectasis. Please correlate clinically to exclude pneumonia. Approved by: Arie Blake M.D. on 07/29/2017 at 8:53 Cardiac Echo Impressions ECHO on 07/30/17 Interpretation Summary Normal sinus rhythm. Normal LV size and wall thickness. There is septal dyskinesis. otherwise normal wall motion. EF is 60-65%. There is moderate RV dilation with normal RV function. Otherwise normal chamber sizes. Aortic sclerosis without stenosis. Otherwise no significant valvular abnormalities. Estimated PA systolic pressure is 71 mm Hg assuming RA pressure of 20 mm Hg. Compared to prior study 11/06/2016, mild RV dilation is new. Elevated PA systolic pressure is new. Dyskinetic septum is new. Findings are concerning for PE. Additional Diagnostics US VEINOUS LEG DUPLEX UNILATERAL, RIGHT IMPRESSION: Limited examination secondary to body habitus. The left common femoral vein not visualized and cannot be evaluated. Deep vein thrombosis involving the left common femoral vein cannot be excluded. No evidence of deep vein thrombosis involving the left superficial femoral vein or popliteal vein. Approved by: Ary Trejo MD, PhD on 07/29/2017 at 12:29 ABG pH ____7.231 - 7.350 7.450 pCO2 ___48.7__ -mmHg 35.0 45.0 pO2 ___68.5__ -mmHg 69.0 116 HCO3- ___19.7__ -mmol/L 22.0 26.0 Liter_Flow ____4.0__ -L/min Oxygen Device 1 __CANNULA - Plan Impression Impression #1 acute tubular necrosis secondary to sepsis and septic shock #2 chronic kidney disease stage obesity-induced focal segmental sclerosis #5 mixed metabolic and respiratory acidosis Recommendations #100 mg discussion with the patient's and family updating them FOR as his multiple comorbidities. I will also have a long discussion with Dr. Paniagua from the critical care team because of his morbid obesity getting any type of dialysis catheter and this patient is going to be almost impossible. I feel that he would be best served by being transferred down to the [facility] in [place]. The family agrees with this as does Dr. Ron in however because of the patient's current instability we have to make sure that he is stable prior to any type of planned transfer. I would like to back down on his fluids and I would like to attempt to give him a dose of IV diuretics however I feel the critical issue is getting him transferred once she is stable. Right now his prognosis is guarded at best. Total time 50 minutes. Michael Walton DO Jul 31, 2017 11:29
--- NOTE | 2017-07-31 11:30 | PCM.PHAPRO ---
Progress right lower leg pain WARFARIN: Indication: likely PE/DVT Home dose NA Recent dosing: Date Jul 30-Jul 31-Aug 01Aug 02Aug 03-Aug 04-Jul INR 1.04 1.18 1.21 INR change 0.14 0.03 Warf Dose 7.5 7.5 7.5 a/ INR ramp appropriate thus far. p/ Continue 7.5mg/d Ilya Tran Pharm D Jul 31, 2017 11:30
--- NOTE | 2017-07-31 12:44 | ABG ---
DateTimeAnalyzed 12:36:00 -_ pH ____7.118 - 7.350 7.450 pCO2 ___49.6__ -mmHg 35.0 45.0 pO2 124 -mmHg 69.0 116 HCO3- ___15.3__ -mmol/L 22.0 26.0 ABE __-13.0__ -mmol/L -2.0 2.0 tHb ____8.4__ -g/dL 12.0 18.0 O2Hb ___96.3__ -% COHb ____0.8__ -% 0.0 1.5 MetHb ____0.8__ -% 0.4 1.5 sO2 ___97.9__ -% 25.0 FIO2 ___70.0__ -% PRVC 600 - PEEP ____5.0__ -cmH2O Set_RR ___16.0__ -b/min Drawn By NB - Date/Time Notified____ 12:44:00 -_ Spontaneous_RR ___18.0__ -b/min Oxygen Device 1 VENTILATOR - Notified By NB - Notified Whom ___DR. KENDREGAN - B 756 -mmHg tO2 ___11.6__ -Vol% Zoltan test N/A -
--- NOTE | 2017-07-31 12:45 | NUR ---
Inpatient Wound Nurse Patient seen for wound under panniculus and weeping on LLE. Family denied any posterior wounds and patient is not stable for turning. He is on appropriate surface and nursing staff are following pressure relieving protocols, heels are floated, pink and warm, no bogginess. Extensive sclerosis, hardening, and pitting of BLE is noted. Weeping area on lateral LLE is pale pink, warm, and moist, not warmer than surrounding skin. Area was cleansed, blotted dry, then covered with bordered sacral Mepilex. This dressing has silicone facing and will absorb a large amount of drainage. Nursing staff may change PRN. Family stated that they have been providing care for skin tear under panniculus. Entire panniculus not visualized due to patient's fragility. The one wound that was found was 1 cm L x 2 cm w with no measurable depth, beefy red, edges well adhered, appears as horizontal split in skin. No evidence of yeast or fungus under panniculus. Entire area was cleansed as well as possible, dried well, then coated with silicone based barrier ointment which should protect skin from maceration and friction. Blue chucks (with paper backing) were folded in half lengthwise and placed under panniculus. These can be changed PRN. CWON will check with patient's nurse daily for continued wound care needs.
--- NOTE | 2017-07-31 12:53 | PROG NOTE ---
[address] [address] PROGRESS NOTE PATIENT: PO DELGADO : 1975 MR#: [id number] ADMIT: 07/29/2017 JOB ID: [id number] DATE: 07/31/2017 PULMONARY CRITICAL CARE FOLLOWUP NOTE: PROBLEM LIST: 1. Streptococcal toxic shock syndrome. 2. Acute superimposed on chronic renal failure with essentially complete shutdown. 3. Hypoxemic hypercarbic respiratory failure. 4. Probable pulmonary embolism. 5. Pulmonary hypertension. 6. Super morbid obesity with BMI of 90.9. SUBJECTIVE: None. OBJECTIVE: Temperature 36.9. Pulse 90. Respiratory rate 20 with ventilator set at 16. Blood pressure 125/44 on norepinephrine at 0.4 mcg/kg per minute ideal body weight. O2 sat on FiO2 of 70%, PEEP of 5, is 97%. I and O shows 4.7 L in, urine output 30 mL. Sedated on the ventilator. Chest: Diminished breath sounds. Sound relatively clear in the upper lung hogan. Inaudible in the lower lung hogan. Heart: Regular rhythm. Heart tones heard well only at the xiphisternal area. Heart tones seem normal. Abdomen is soft. Nondistended. Quiet. Extremities: Marked chronic stasis changes both lower extremities with nodular indurated skin with occasional areas of breakdown extending up to the mid thigh with indurated lower abdominal wall. LABORATORY DATA: Shows a white count of 20,500 with 70 polymorphonuclears, 23 bands, 4 lymphocytes, 1 monocyte. Hemoglobin stable at 8.5. Platelet count stable at 284,000. Sodium 137, potassium 5.1, chloride 102, CO2 is 14. BUN 54, up from 44 yesterday. Creatinine 6.77, up from 5.96 yesterday. Lactic acid is 1. Calcium is 7.6. Total bilirubin 0.4, AST 19, ALT 9, alkaline phosphatase 76. Albumin 2.7. Procalcitonin 93.08, up from 85 yesterday. PTT on heparin is 99.8 seconds. Urine shows mixed urogenital mario. Blood cultures pending. Screen for MRSA is negative. Arterial blood gases on PRVC rate of 19, tidal volume of 600, PEEP of 10, FiO2 of 0.7, shows a pO2 of 113, a pCO2 of 51.8, and pH of 7.11. ASSESSMENT: 1. Probable streptococcal toxic shock syndrome. The patient appearing septic with blood pressures with a wide pulse pressure. Trying to get a Vigileo monitor to help us with fluid and pressors in this complicated individual suffering from toxic shock, renal failure, pulmonary embolism, and probably exacerbated pulmonary hypertension. Doing reasonably well with the current fluid regimen and pressors. Would like to get both fluids and pressors down given his renal failure but that remains to be established. 2. Renal failure. Essentially anuric. However, luckily the potassium has remained reasonable. I do not think he is severely fluid overloaded. pH is 7.11. Hopefully we can get his CO2 down with a few maneuvers and improve the acidemia. 3. Acute on chronic hypoxemic hypercarbic respiratory failure. Oxygenating better. Hemodynamics are better. CO2 is not particularly bad; but, given his acidemia, will try to improve ventilation. First, we will try to get the patient more upright in order to better ventilate the bases. May need higher tidal volumes as peak inspiratory pressures are only 29 with a plateau of 25, PEEP set at 10, measured at 10. Interpretation of the pulmonary mechanics is quite difficult given his super morbid obesity. However, we are having low pressures which would imply very likely the patient could withstand increased tidal volumes. Reasonable flows can increase the rate. 4. Pulmonary embolism. Given his super morbid obesity difficult to treat the patient. Presumed pulmonary embolism with echocardiographic changes driving the diagnosis along with his obesity and immobility. Heparin doing reasonably well. The question as to his hypertension is that due to acute onset pulmonary hypertension, pulmonary embolism, or septic shock. I do not think we need thrombolytics now as they would be rather risky as they would have to be given systemically. Will need to continue on with the heparin for the moment. PLAN: 1. Continue antibiotic regimen formulated by Infectious Disease. 2. Discuss fluids and pressors with Renal service. 3. Elevate the patient's head of bed to about 60 degrees to see if we can improve ventilation just with position changes. Will need to a watch his blood pressure carefully while we do this. If indeed this is able to be accomplished and ineffective, then we can increase the tidal volumes I think, given the pressures are on the relatively low side, and increase respiratory rate as well. However, as noted, he is already over-breathing the ventilator with respiratory rate running about 19 with the ventilator set at 16. In any case this would hopefully improve ventilation at the bases and diminish element of shunt and severe V/Q mismatch. 4. Continue heparin infusion and begin warfarin as per pharmacology consultation. 5. Seek to decrease norepinephrine. 6. Discussed the situation in detail with Infectious Disease, Renal and Primary Care team. 7. Discussed our thoughts and plans with the patient's family. TIME: Time spent so far in critical care is 2 hours.
--- NOTE | 2017-07-31 13:16 | NUR ---
NUTRITION ASSESSMENT: ASSESS: 42 YO male presented to the ED with the chief complaint of new onset right lower leg pain. He describes the pain as a persistent throbbing with burning and soreness, with radiation from his foot to abdomen, sparing his toes, and associated with numbness on his legs. The patient states that this episode of right lower leg pain is consistent with previous episodes of cellulitis which required antibiotics in hospital stays. Yesterday, the patient became increasingly somnolent and required intubation and transfer to CCU with probable streptococccal toxic shock syndrome, renal failure, acute on chronic hypoxemic hypercarbic respiratory failure, and probable PE. He is dependent on very high-level norepinephrine to maintain his blood pressure. He exceeds the weight and size requirements for CT or MRI scanning even at the [facility], so we have no way to image him and see whether he may or may not have a pulmonary embolism nor any way to image his legs to see whether or not he may have necrotizing myositis or fasciitis, which ID suspects. Likewise, there is no indication to surgically intervene, as the exterior of his massive legs appears relatively benign and we would have no idea where or how to intervene surgically. PMHx: Class III obeseity, recurrent RLE cellulitis, severe lymphedema of RLE, venous insufficiency of the LE, HTN, fibromyalgic / chronic pain syndrome requiring narcotics, arthritis, back pain, depression, anxiety, ENEDINA, RA, glomerulonephritis, prediabetes type II. DIET: NPO. LABS: Reviewed. CO2 14, BUN 54, Cr 6.77, Glu 102, Ca 7.5, Alb 2.7, Procalc 93.08. MEDICATIONS: Reviewed. Insulin, norepi, fentanyl, ativan, albumin. NUTRITION FOCUSED PHYSICAL ASSESSMENT: GI symptoms / stool: No stool reported. Gonzalo: 10. Skin Integrity: Sandfill Operator Surface consulted regarding wound under panniculus and weeping on LLE. Extensive sclerosis, hardening, and pitting of BLE is noted. Entire panniculus not visualized due to patient's fragility. The one wound that was found was 1 cm L x 2 cm w with no measurable depth, beefy red, edges well adhered, appears as horizontal split in skin. No evidence of yeast or fungus under panniculus. ANTHROPOMETRICS: Current Wt: 303.9 kg BMI: 90.0 kg/m2. Admit weight: 307 kg IBW: 80.91 kg (379% IBW) ESTIMATED NEEDS (CLASS III OBESITY, WOUNDS, VENT): Calories: 2023 - 2427 kcal (25 - 30 kcal / kg IBW) Protein: 162 - 202 g protein (2. - 2.5 g / kg IBW) Fluid: Approx. 9210 mL fluid (30 mL / kg BW) NUTRITION DIAGNOSIS: 1)Inadequate oral intake related to hemodynamic instability, as evidenced by NPO / vent status. 2) Increased nutrient needs related to acute on chronic cellulitis, weeping lymphedema, as evidenced by ongoing wound consults. INTERVENTION: 1) In the event patient stabilizes sufficiently for nutrition support, at this point in time, recommend Nepro at 10 mL/hr until pressor support weaned down. Once tolerance established, advance 5 ml every 4 hr. to goal rate 60 mL/hr x 22 hr. Flush dose 40 mL H2O/hr while IV fluids running. In the event IV fluids discontinued, flush dose to be determined by nephrology. Enteral feeding at goal rate would provide 2376 kcal, 107 g protein, sufficient to meet 100% kcal / 66% protein needs, which is appropriate while patient is in renal failure and not requiring dialysis. MONITOR/EVALUATE: NPO / vent status, labs, weight, nutritional status. Follow up per high nutrition risk guidelines. Addendum: 08/01/17 at [address] Per discussion during case management rounds today, unsigned enteral feeding orders placed in chart for Dr. Varela' authorization likely tomorrow.
--- NOTE | 2017-07-31 15:12 | ABG ---
DateTimeAnalyzed 15:00:00 -_ pH ____7.206 - 7.350 7.450 pCO2 ___37.4__ -mmHg 35.0 45.0 pO2 177 -mmHg 69.0 116 HCO3- ___14.2__ -mmol/L 22.0 26.0 ABE __-12.4__ -mmol/L -2.0 2.0 tHb ____8.1__ -g/dL 12.0 18.0 O2Hb ___97.8__ -% COHb ____0.8__ -% 0.0 1.5 MetHb ____0.8__ -% 0.4 1.5 sO2 ___99.4__ -% 25.0 FIO2 ___70.0__ -% Drawn By rs - Date/Time Notified____ 15:12:00 -_ Notified By rs - Notified Whom Kendregan, Hardeep -____ B 756 -mmHg tO2 ___11.6__ -Vol%
[2017-07-31 15:31] LABS: Mean Corpuscular Volume 81.7 fL (81-100)
[2017-07-31 15:35] LABS: Platelet Count 246 bil/L (150-400)
[2017-07-31] MEDS: LORazepam 100 mg/100 mL Drip IV SCH ×2 (15:44)
[2017-07-31 15:54] LABS: MONOCYTES % (AUTO) 1 % (4-12)
[2017-07-31 15:55] LABS: BASOPHILS % (AUTO) 1 % (0-3); EOSINOPHILS % (AUTO) 0 % (0-5); NEUTROPHILS % (AUTO) 70 % (40-74)
[2017-07-31 16:09] LABS: Magnesium 1.8 mg/dL (1.6-2.6); Phosphorus 8.2 mg/dL (2.5-4.9)
--- NOTE | 2017-07-31 17:48 | NUR ---
spiritual care; follow up brief visit; family at bedside. provided coloring pages for young relative. others expressed appreciation, gave medical report and coping.
--- NOTE | 2017-07-31 18:05 | NUR ---
P: Respiratory Distress I: Pt sat up and ABG checked to see if sitting upright would help his breathing. Ph remains essentially the same. vent changes made. Ativan 2mg/hr Fentanyl 150 mcqs. Norepinephrine gtt at 0.3mcqs. RIJ TLC patent. Left radial art line patent. Blood sugars WNL. Reddy with no output. IAP [address] Walton notified of the result. NPO. OGT patent and drained 1300cc of green fluid. No BM. NSR. CVP 22. Vigileo connected. SVR 278 and SvRi 984. Oral care. Legs are weepy and SCD's are contraindicated. Heparin gtt therapeutic. Family at bedside. Family updated on pt's condition and plan of care. E: Guarded S: Restraints on for pt safety. Frequent rounding.
[2017-07-31] MEDS ORDERED: Albumin 25% 50 GM in IV Premix 1 EACH IV ONE (18:30)
--- NOTE | 2017-07-31 18:57 | PCM.PNMED ---
Subjective Date of Service Jul 31, 2017 Subjective Du Flannery is a 42 year old male recurrent leg cellulitis, severe bilateral lymphedema, hypertension, chronic pain, obstructive sleep apnea who presents to [facility] emergency department with increased redness on left leg and shortness of breath. Today, patient remains ventilator dependent and his condition only continues to worsen. He is sedated and had very minimal urine output. His kidney function is also continuing to get worse. There is discussion of transferring patient to Critical Care. However, transport would be difficult given his size and in addition, he it not stable enough for transport yet. There were no acute events overnight. ROS could not be obtained as patient is sedated Exam Vital Signs Vital Sign - Last Date Time Temp Pulse Resp B/P Pulse Ox O2 Delivery O2 Flow Rate FiO2 07/31/17 05:20 89 117/44 98 70 07/31/17 03:59 36.9 20 Mechanical Ventilator 07/30/17 09:28 3.00 Intake and Output 07/30/17 07/30/17 07/31/17 Cumulative From/Thru 15:00 23:00 07:00 07/29/17 08:35 - 07/30/17 17:30 Intake Total 100 ml 1856 ml 6884 ml Output Total 280 ml 580 ml Balance 100 ml 1576 ml 6304 ml Intake Oral 1303 ml IV Total 100 ml 1856 ml 5581 ml Output Urine Total 30 ml 330 ml Gastric Drainage Total 250 ml 250 ml # Voids 1 Exam General: Patient is a morbidly obese male, lying with head propped upright on bed, intubated on ventilator HEENT: head normocephalic and atraumatic, PERRLA, EOMI, no scleral icterus, injected conjunctiva Neck: neck supple, non-tender, no lymphadenopathy, trachea midline, no JVD CV: regular rate and rhythm but heart sounds are very distant, radial pulses are palpable bilaterally, no murmurs Lungs: lung sounds are also distant and appears to be decreased bilaterally Abdomen: pannus is massive, evidence of small laceration on left side of abdomen , covered by panus, normoactive bowel sounds, soft, and very tympanic to percussion Skin:warm and dry Extremities: significant lymphedema with tree-bark appearance of lower extremities bilaterally, Right leg is bigger in size compared to left leg, evident erythema and induration noted Neuro: unable to assess as patient is very somnolent Psych:unable to assess as patient is very somnolent : Reddy catheter IVs and Medications Medications Reviewed: Medications were reviewed in detail Medications High Risk medications include fentanyl, norepinephrine Lab and Diagnostics Result Diagram: 07/30/17 0530 07/30/17 0930 X-Rays, CTs and MRIs X-RAY CHEST ONE VIEW, PORTABLE IMPRESSION: 1. Borderline prominence of the heart with mild to moderate vascular congestion. 2. Left infrahilar density probably represents atelectasis. Please correlate clinically to exclude pneumonia. Approved by: Arie Blake M.D. on 07/29/2017 at 8:53 Cardiac Echo Impressions ECHO on 07/30/17 Interpretation Summary Normal sinus rhythm. Normal LV size and wall thickness. There is septal dyskinesis. otherwise normal wall motion. EF is 60-65%. There is moderate RV dilation with normal RV function. Otherwise normal chamber sizes. Aortic sclerosis without stenosis. Otherwise no significant valvular abnormalities. Estimated PA systolic pressure is 71 mm Hg assuming RA pressure of 20 mm Hg. Compared to prior study 11/06/2016, mild RV dilation is new. Elevated PA systolic pressure is new. Dyskinetic septum is new. Findings are concerning for PE. Additional Diagnostics US VEINOUS LEG DUPLEX UNILATERAL, RIGHT IMPRESSION: Limited examination secondary to body habitus. The left common femoral vein not visualized and cannot be evaluated. Deep vein thrombosis involving the left common femoral vein cannot be excluded. No evidence of deep vein thrombosis involving the left superficial femoral vein or popliteal vein. Approved by: Ary Trejo MD, PhD on 07/29/2017 at 12:29 ABG pH ____7.231 - 7.350 7.450 pCO2 ___48.7__ -mmHg 35.0 45.0 pO2 ___68.5__ -mmHg 69.0 116 HCO3- ___19.7__ -mmol/L 22.0 26.0 Liter_Flow ____4.0__ -L/min Oxygen Device 1 __CANNULA - Assessment & Plan Du Flannery is a 42 year old male recurrent leg cellulitis, severe bilateral lymphedema, hypertension, chronic pain, obstructive sleep apnea who presents to [facility] emergency department with increased redness on left leg and shortness of breath. Patient has been transferred to the ICU and was intubated by the anesthesiologist and placed on volume ventilation. A right IJ line was placed in addition to a radial arterial line. Antibiotics were started per infectious disease. Acute on chronic kidney disease is worsening, likely as a result of acute tubular necrosis secondary to sepsis and septic shock. Patient was found to have evidence of possible pulmonary embolism from echocardiogram and is continuing heparin drip. Patient is requiring pressors and fluid. Severe Sepsis with Septic Shock -Initially, WBC 21.3, 32% bands, pro-calcitonin and 85.02 -Today, WBC 20.5 with 23 bands, Procalcitonin 93.08, up from 85 yesterday. -Infectious Disease, Dr. Eddy was consulted and case discussed with him today. -Patient has hx of recurrent soft tissue infections of the leg. possible streptococcal toxic shock syndrome -Per ID, continue with maximal dose daptomycin, meropenem and clindamycin -Continue to monitor CBC, procalcitonin -Evidence of widening pulse pressures -Patient requires norepinephrine and fluids to maintain this pressures Acute hypoxic hypercapnic respiratory failure -with severe metabolic and respiratory acidosis - Possibly combined effects of obesity hypoventilation syndrome and pulmonary emboli - Noted pH of 7.23 with PCO2 of 48.7 and PO2 of 68.5 on 4 L nasal cannula in the ED - Initially, RT placed BiPAP as necessary with oxygen goals between 88 and 92% given possibility of chronic CO2 retention but patient continued to decompensate and was intubated -Patient intubated on volume ventilation -Per ICU team Dr. Mckeon, try to get the patient more upright in order to better ventilate the bases. -ICU team adjusting vent settings -Patient received Ativan and Fentanyl, but try to avoid sedation as much as possible Possible Acute pulmonary emboli -as evidenced by ECHO findings - Patient has lower extremity edema making clinical signs of DVT as well as LE US imaging difficult, however is notably sedentary lifestyle with d-dimer of 1.91 and a heart rate greater than 100, with review of records indicated that the patient is not typically tachycardic at baseline, giving him a well's score of 4.5 with a moderate risk of pulmonary emboli approximately 16.2% - Given patient's body habitus and poor kidney function no ability to perform CT PE or VQ scan - Patient was bridged on heparin drip given his kidney disease Lovenox is contraindicated, given patient's body habitus no normal anticoagulation therapy can be given, pharmacy to administer warfarin -Continue heparin drip for medical management -If patient becomes unstable, consider TPA; has been discussed with family and they have consented Acute kidney injury on chronic kidney disease with noted chronic glomerulonephritis -SYDNEY likely acute tubular necrosis secondary to septic shock - Previous nephrology notes indicate the patient has chronic glomerulonephritis however given body habitus and poor patient follow-up no definitive diagnosis has been made currently leaning to focal segmental glomerular sclerosis versus IgA nephropathy with the last renal ultrasound on 06/09/17 showing no hydronephrosis with right kidney measures 13.0 cm long; left kidney measures 15.3 cm long. Right renal cortical thickness is 1.7 cm; left renal cortical thickness is 1.6 cm. Renal cortical echotexture is normal. - Chronic kidney disease with currently uncertain staging given with baseline creatinine approximately 1.1-1.3 in December 2016 with consistent increases in creatinine every hospitalization since December to current admission - Creatinine of 4.54 admission, worse today with BUN and creatinine were 54 and 6.7 -His C3 and C4 are both normal thus excluding acute glomerulonephritis - Fractional excretion of sodium calculated at 0.6% consistent with prerenal causes for worsening kidney injury - Nephrology, Dr. Walton was consulted . We appreciate his input -Recommended giving him another dose of albumin and decreasing fluids -inserting dialysis catheter would be difficult with this patient. Acute on chronic cellulitis of right lower extremity - poor circulation and Lymphedema are contributing factors to recurrent infections. - White blood cell count of 4.4 notably lower than prior admissions possibly atypically consistent with infectious etiology, pro-calcitonin of 0.37 typically considered indeterminate - Pt last hospitalized on 06/11/2017 for cellulitis, left AMA, at that time ID was consulted, recommended ceftriaxone while inpatient and cefdinir 300 once per day as outpatient for minimum of 10 days, with clindamycin 300 mg p.o. b.i.d. indefinitely as prophylaxis. - Blood Culture ordered and pending - MRSA negative Hypertension, chronic, not ongoing -Patient is currently normotensive - Monitor and hold home medication until more normotensive - Consider initiating alternative blood pressure medication to amlodipine considering chronic lower extremity edema - Avoid Poncho inhibitors given kidney disease with acute kidney injury - Consider initiating labetalol 100 mg by mouth twice a day as necessary Chronic normocytic anemia - Hemoglobin of 8.8 at admission with MCV of 83 - Likely secondary to chronic kidney disease with severe glomerulonephritis blood loss as well as poor erythropoietin production - monitor Depression, chronic - continue Sertraline 150 mg daily when able Chronic severe morbid Obesity - continue pulse oximetry - Pt does not use CPAP at home -Patient's BMI is 90.9 Chronic pain syndrome - Patient generally receives ativan for anxiety continue for sedation reasons while intubated -Hold home dose of oxycodone while intubated Obstructive Sleep Apnea, chronic - Patient currently intubated Chronic prediabetic [id number] - A1c of 6.3 in April 2017 - A1c on this admission 5.8 DVT prophylaxis: Heparin drip GI prophylaxis: Not indicated CODE STATUS is full. Patient's family has been made aware and understand the extent of the situation. Pain Evaluation: Adequate Pain Control GI Prophylaxis: Not indicated VTE Prophylaxis: Other (heparin drip) Resuscitation Status: CPR: Attempt Resuscitation Attending Statement The patient was seen and examined together with Dr. Merritt on 07/31/17 and I have added additional information to the note above. Eusebia Merritt DO Jul 31, 2017 06:15 Luz Maria Varela DO Jul 31, 2017 21:47
[2017-08-01] VITALS (13 sets, daily range): BP systolic 124–152; BP diastolic 45–60; PULSE 78–94; RESP 22–23; O2SAT 92–96
[2017-08-01] MEDS: Clindamycin 900 mg/50 mL D5W IV SCH ×4 (00:42→23:53)
[2017-08-01] MEDS: Chlorhexidine 0.12% 15 mL Oral Solution MUC_MEMBRM SCH ×7 (00:42→23:53)
[2017-08-01] MEDS: Norepineph 8,000 mCg/250 mL NS 8,000 MCG in IV Premix 1 EACH IV SCH ×3 (01:01→16:11)
[2017-08-01] MEDS: Insulin Human REGular 300 Unit/3 mL Inj SUBQ SCH ×4 (02:30→20:30)
[2017-08-01] MEDS: 0.9% Sodium Chloride 1,000 ML IV SCH ×2 (04:35→14:40)
[2017-08-01] MEDS: Heparin 25K Unit/500mL 0.45 NS 25,000 UNIT in IV Premix 1 EACH IV SCH ×3 (04:36→16:56)
[2017-08-01 05:45] LABS: BASOPHILS % (AUTO) 0.2 % (0-3); EOSINOPHILS % (AUTO) 1.3 % (0-5); MONOCYTES % (AUTO) 4.6 % (4-12); Mean Corpuscular Hemoglobin 24.9 pg (27.0-35.0); Mean Corpuscular Volume 80.2 fL (81-100); NEUTROPHILS % (AUTO) 84.7 % (40-74); Platelet Count 223 bil/L (150-400)
[2017-08-01 06:03] LABS: INR 1.53 ratio
[2017-08-01 06:08] LABS: Magnesium 1.7 mg/dL (1.6-2.6); Phosphorus 8.2 mg/dL (2.5-4.9)
--- NOTE | 2017-08-01 06:12 | NUR ---
FiO2/Pressers Morning ABG allowed for FiO2 to be decreased from 55% to 45%. Changed made by RT. Dr. Luna ordered levophed gtt to be titrated to maintain ART Line MAP at goal of 70. Levophed gtt titrated down and is currently at 0.22mcg/kg/minute based on IBW.
--- NOTE | 2017-08-01 06:44 | DRSVH ---
PROCEDURE: X-RAY CHEST ONE VIEW, PORTABLE ([id number]) INDICATIONS: 42-year-old male with intubation. TECHNIQUE: One view of the chest was acquired. COMPARISON: [facility], CR, XR CHEST 1VW (PORTABLE), 07/30/2017, 15:28. [facility], CR, XR CHEST 1VW (PORTABLE), 07/30/2017, 13:20. [facility], CR, XR CHEST 1VW (POR TABLE), 07/30/2017, 11:51. FINDINGS: Surgical changes and devices: Endotracheal tube, nasogastric tube, and right internal jugular central venous catheter remain in expected positions. Lungs and pleura: No pleural effusions or pneumothorax. Lung volumes are decreased, with significant bronchovascular crowding. Mediastinum: Mediastinal contours appear normal given low lung volumes. Heart size is normal. Ther e is aortic atherosclerosis. Bones and chest wall: No suspicious bony lesions. Overlying soft tissues appear unremarkable. IMPRESSION: Persistent low lung volumes, with bronchovascular crowding. Dictated by: Josh Campo M.D. on 08/01/2017 at 6:41 Approved by: Josh Campo M.D. on 08/01/2017 at 6:43
[2017-08-01] MEDS: Meropenem Inj 1,000 MG in 0.9% Sodium Chloride 100 ML IV SCH (08:07)
[2017-08-01] MEDS: Famotidine Inj 20 MG in IV Premix 1 EACH IV SCH ×2 (08:07→20:01)
[2017-08-01] MEDS: fentaNYL 2,500 mCg/250 mL 2,500 MCG in IV Premix 1 EACH IV SCH ×2 (08:39→23:42)
[2017-08-01] MEDS ORDERED: Albumin 25% 50 GM in IV Premix 1 EACH IV ONE (09:25)
[2017-08-01] MEDS: DAPTOmycin Inj 1,000 MG in 0.9% Sodium Chloride 50 ML IV SCH (09:35)
[2017-08-01] MEDS ORDERED: Furosemide 10 mg/mL 10 mL Inj IVPUSH ONE ×2 (10:55→20:30)
--- NOTE | 2017-08-01 12:17 | PCM.PNNEPH ---
Subjective Date of Service Aug 01, 2017 Subjective The patient shows some slight improvement. His rate of rise of creatinine. Stroke stabilized. He is made about 200 mls of urine since midnight. He still remains quite ill and ventilatory dependent. He is also complaining of considerable amounts of fluid through his NG tube but they have been able to wean back his pressors to some extent. His current vent settings are 45% oxygen and was 5 and his CVP is 20. His intra-abdominal pressure is elevated however I feel that this is probably a false reading in light of the patient's massive interstitial fluid in his lower abdomen. This morning his hemoglobin is 7.8, sodium 135, potassium 4.8, chloride 103, bicarbonate 13, BUN and creatinine were 61 and 6.74. His phosphorus is 8.2 and albumin is 2.3. Exam Vital Signs Vital Sign - Last Date Time Temp Pulse Resp B/P Pulse Ox O2 Delivery O2 Flow Rate FiO2 08/01/17 09:05 92 45 08/01/17 08:29 81 126/46 08/01/17 08:00 Ventilator 08/01/17 08:00 37.4 22 07/30/17 09:28 3.00 Intake and Output 07/31/17 07/31/17 08/01/17 Cumulative From/Thru 15:00 23:00 07:00 07/29/17 08:35 - 08/01/17 05:13 Intake Total 2958 ml 3110 ml 85009 ml Output Total 1300 ml 350 ml 2935 ml Balance 1658 ml 2760 ml 29993 ml Intake Oral 0 ml 1303 ml IV Total 2958 ml 3110 ml 13187 ml Output Urine Total 0 ml 250 ml 585 ml Gastric Drainage Total 1300 ml 100 ml 2350 ml # Voids 1 # Bowel Movements 0 0 Exam Patient is sedated and on a ventilator. A limited lung exam was performed and demonstrated some coarse rhonchi. Due to his massive body habitus. Pulmonary exam is somewhat difficult. His heart is regular and rhythmic. Abdomen is soft without evidence of free fluid wave however he has considerable amount of tissue edema in the lower half of his abdomen. There are no masses noted. Extremities show significant large amount of edema and lymphedema. Lab and Diagnostics Result Diagram: 08/01/1730 08/01/17 0530 X-Rays, CTs and MRIs X-RAY CHEST ONE VIEW, PORTABLE IMPRESSION: 1. Borderline prominence of the heart with mild to moderate vascular congestion. 2. Left infrahilar density probably represents atelectasis. Please correlate clinically to exclude pneumonia. Approved by: Arie Blake M.D. on 07/29/2017 at 8:53 Cardiac Echo Impressions ECHO on 07/30/17 Interpretation Summary Normal sinus rhythm. Normal LV size and wall thickness. There is septal dyskinesis. otherwise normal wall motion. EF is 60-65%. There is moderate RV dilation with normal RV function. Otherwise normal chamber sizes. Aortic sclerosis without stenosis. Otherwise no significant valvular abnormalities. Estimated PA systolic pressure is 71 mm Hg assuming RA pressure of 20 mm Hg. Compared to prior study 11/06/2016, mild RV dilation is new. Elevated PA systolic pressure is new. Dyskinetic septum is new. Findings are concerning for PE. Additional Diagnostics US VEINOUS LEG DUPLEX UNILATERAL, RIGHT IMPRESSION: Limited examination secondary to body habitus. The left common femoral vein not visualized and cannot be evaluated. Deep vein thrombosis involving the left common femoral vein cannot be excluded. No evidence of deep vein thrombosis involving the left superficial femoral vein or popliteal vein. Approved by: Ary Trejo MD, PhD on 07/29/2017 at 12:29 ABG pH ____7.231 - 7.350 7.450 pCO2 ___48.7__ -mmHg 35.0 45.0 pO2 ___68.5__ -mmHg 69.0 116 HCO3- ___19.7__ -mmol/L 22.0 26.0 Liter_Flow ____4.0__ -L/min Oxygen Device 1 __CANNULA - Plan Impression Impression #1 acute on chronic kidney injury secondary to acute tubular necrosis from sepsis number to baseline chronic kidney disease stage III #3 obesity related to focal segmental sclerosis Recommendations #1 I have had a long discussion with Dr. Paniagua from the critical care team and I will also discuss the case at length with the patient' s . I am somewhat encouraged by the fact that his creatinine appears to fall plateaued. As noted from previous evaluations dialysis access would be quite difficult. I agree with giving him the albumin support at this time and we will also go ahead and write for 100 mg of furosemide to be given once the albumin is infused. I will ask the nurse to call me at about 5:00 this evening to give me an update on the patient's blood pressure and urine output. I will have further recommendations at that time. Total time spent 50 minutes. Michael Walton DO Aug 01, 2017 12:17
--- NOTE | 2017-08-01 14:33 | PCM.PHAPRO ---
Progress Date of Service: Aug 01, 2017 right lower leg pain WARFARIN MANAGEMENT A\ 42 YO M ADMITTED FOR CELLULITIS GOAL INR=2-3 CURRENT INR= 1.53 HCT=25.1 PLT= 223 PATIENT CURRENTLY ON A HEPARIN DRIP UNTIL THERAPEUTIC ON WARFARIN. P\ WARFARIN 7.5MG PO X1 TONIGHT AND CHECK AN INR WITH [facility]. Juancarlos Munoz [facility] Aug 01, 2017 14:33
--- NOTE | 2017-08-01 14:37 | PROG NOTE ---
[address] [address] PROGRESS NOTE PATIENT: PO DELGADO : 1975 MR#: [id number] ADMIT: 07/29/2017 JOB ID: [id number] DATE: 08/01/2017 PROBLEM LIST: 1. Streptococcal toxic shock syndrome. 2. Acute on chronic renal failure. 3. Super morbid obesity. 4. Obesity hypoventilation syndrome. 5. Acute on chronic hypoxemic hypercarbic respiratory failure. 6. Pulmonary embolism. 7. Pulmonary hypertension. OBJECTIVE: Temperature 37.5, pulse low 80s. Respiratory rate 22, occasionally 23 with ventilator set at 22. Blood pressure 148/57 on norepinephrine at 0.22 mcg/kg/minute. O2 sat on FiO2 of 45%, PEEP of 5, shows an O2 sat of 94%. I and O shows 6.3 L in, approximately 250 mL out. General appearance: Morbidly obese male. Heavily sedated. Chest: Fair breath sounds anteriorly. Clear anteriorly. Not well heard laterally. Heart: Distant heart tones. Abdomen soft. Quiet. Most of the intertriginous areas on the abdomen appear without erythema or fluctuance. Extremities: The nodular, cauliflower, cobblestoned skin extending to the knee. Slight leak in the left lower extremity though chronic. LABORATORY DATA: Shows a white count of 13,100 down from 15,600 yesterday with resolution of the significant left shift with 84 polymorphonuclears, 8 lymphs, 4 monocytes. Yesterday, there were 19 bands; today there is only one. Hemoglobin 7.8, relatively stable. Platelet count 223,000 and slowly decreasing. Sodium 135, potassium 4.8, chloride 102. CO2 is 13, stable. BUN 61, stable. Creatinine 6.74, slightly improved but certainly not worsening. Calcium 8.1 with an albumin of 2.3. Phosphorus 8.2 and stable. Magnesium 1.7. Total bilirubin 0.3. AST 13, ALT 7, alkaline phosphatase 93. Procalcitonin is 64 and decreasing. PTT is 97.5. Chest x-ray shows tubes and lines in expected position. Decreased lung volumes. ASSESSMENT: 1. Septic shock. Blood pressure rising. Hemodynamics normalizing. Cardiac index is a bit over 4. Systemic vascular resistance in the mid thousands. Seemingly some tightening of vasculature though again systemic vascular resistance is an unreliable value. Overall, he seems to be doing better. Continuing to use the norepinephrine to support the apparent venodilatation. This has come down nicely in terms of the dose of the norepinephrine to maintain increasing vascular resistance. 2. Hypoxemic, hypercarbic respiratory failure. Doing a bit better. Oxygenation improving. Ventilation also improving with arterial blood gases showing a pH 7.22, pCO2 in the 30s, pO2 in the low to mid one 100s. (Gases unavailable as there is some difficulty pushing the results to the chart.) FiO2 is down to 45% and overall we are doing reasonably well with his respiratory status. 3. Acute on chronic renal failure. Hopefully, the minimal though significant urine output is a harbinger of improved urine output. Creatinine has hopefully reached its apogee, actually starting to fall a little bit. Will see how this does. I spoke with our Nephrology consultants who are closely involved in the patient's care, and decision was to continue the albumin but also with the albumin to try to push a diuresis with some furosemide. 4. Pulmonary embolism. Not having a particular problem with this. Currently on anticoagulation. PLAN: 1. Decrease FiO2 on ventilation. 2. Continue IV saline. 3. Continue IV heparin. 4. Albumin IV piggyback 50 g. 5. Furosemide IV push 100 mg with albumin infusion. Discussed the situation with the patient's . Talked about the pulmonary progress and the progress as far as the infection is concerned. May be some improvement in kidney function which is vital for his recovery. Time spent in critical care, 60 minutes.
[2017-08-01 15:44] LABS: BASOPHILS % (AUTO) 0.2 % (0-3)
[2017-08-01 15:53] LABS: EOSINOPHILS % (AUTO) 1.4 % (0-5); Mean Corpuscular Hemoglobin 25.1 pg (27.0-35.0); Mean Corpuscular Volume 78.8 fL (81-100); NEUTROPHILS % (AUTO) 82.1 % (40-74); Platelet Count 243 bil/L (150-400)
[2017-08-01 16:14] LABS: Magnesium 1.8 mg/dL (1.6-2.6)
[2017-08-01] MEDS ORDERED: Warfarin 5 MG, Warfarin 2.5 MG PO ONE ×2 (17:00)
--- NOTE | 2017-08-01 18:13 | NUR ---
hemodynamics/urine output Pt continues to be on pressors, able to titrate down to 0.1 by end of shift, MAPs remains in the 70-80s. Pt tolerates turns and patient care fair. He gets anxious with HR in the 90s-100s and BP goes up to 200/70s. Family at bedside throughout shift. UAP 20-23, CVP around 20. 100mg IV lasix given after 50g of albumin per Dr Walton, pt only put out 250ml for shift urine output. Notified Dr Walton as well as the repeat creat on 7. Order for IV lasix 100mg x1 at 2029 ordered, continuing to monitor urine output hourly as well as throughout shift. q2h turns, frequent rounding and oral care continues. Mepilex put on left heel split in skin. Charted in patient care flowsheet.
--- NOTE | 2017-08-01 18:27 | PCM.PNMED ---
Subjective Date of Service Aug 01, 2017 Subjective Du Flannery is a 42 year old male recurrent leg cellulitis, severe bilateral lymphedema, hypertension, chronic pain, obstructive sleep apnea who presents to [facility] emergency department with increased redness on left leg and shortness of breath. Today, patient appears to be improving hemodynamically as his blood pressure is rising and creatinine is decreasing. He remains intubated and on ventilation and continues to require norepinephrine for blood pressure support. Overnight, night team ordered levophed gtt to be titrated to maintain ART Line MAP at goal of 70. Levophed drip was titrated down. There were no other acute events overnight. Review of systems is unobtainable as patient is sedated. Exam Vital Signs Vital Sign - Last Date Time Temp Pulse Resp B/P Pulse Ox O2 Delivery O2 Flow Rate FiO2 08/01/17 04:37 81 126/46 92 45 08/01/17 04:00 37.3 22 Mechanical Ventilator 07/30/17 09:28 3.00 Intake and Output 07/31/17 07/31/17 08/01/17 Cumulative From/Thru 15:00 23:00 07:00 07/29/17 08:35 - 08/01/17 05:13 Intake Total 2958 ml 3110 ml 43074 ml Output Total 1300 ml 350 ml 2935 ml Balance 1658 ml 2760 ml 42870 ml Intake Oral 0 ml 1303 ml IV Total 2958 ml 3110 ml 19040 ml Output Urine Total 0 ml 250 ml 585 ml Gastric Drainage Total 1300 ml 100 ml 2350 ml # Voids 1 # Bowel Movements 0 0 Exam General: Patient is a morbidly obese male, lying with head propped upright on bed, intubated on ventilator HEENT: head normocephalic and atraumatic, PERRLA, EOMI, no scleral icterus, injected conjunctiva Neck: neck supple, non-tender, no lymphadenopathy, trachea midline, no JVD CV: regular rate and rhythm but heart sounds are very distant, radial pulses are palpable bilaterally, no murmurs Lungs: lung sounds are also distant and appears to be decreased bilaterally Abdomen: pannus is massive, evidence of small laceration on left side of abdomen , covered by panus, normoactive bowel sounds, soft, and very tympanic to percussion Skin:warm and dry Extremities: significant lymphedema with tree-bark appearance of lower extremities bilaterally, Right leg is bigger in size compared to left leg, evident erythema and induration noted Neuro: unable to assess as patient is very somnolent Psych:unable to assess as patient is very somnolent : Reddy catheter IVs and Medications Medications Reviewed: Medications were reviewed in detail Medications Risk medications include Fentanyl, Levophed Lab and Diagnostics Laboratory Tests Test 07/31/17 11:23 07/31/17 15:24 07/31/17 18:16 08/01/17 01:07 Activated Partial Thromboplast Time 90.2sec (22.8-33.0) 83.6sec (22.8-33.0) 86.7sec (22.8-33.0) White Blood Count 15.6th/mm3 (3.8-10.1) Red Blood Count 3.28mil/mm3 (4.40-5.80) Hemoglobin 8.2g/dL (13.8-17.2) Hematocrit 26.8% (41.0-50.0) Mean Corpuscular Volume 81.7fL (81-100) Mean Corpuscular Hemoglobin 25.0pg (27.0-35.0) Mean Corpuscular Hemoglobin Concent 30.6% (32.0-37.0) Red Cell Distribution Width 15.3% (12.3-15.4) Platelet Count 246bil/L (150-400) Neutrophils (%) (Auto) 70% (40-74) Lymphocytes (%) (Auto) 9% (14-46) Monocytes (%) (Auto) 1% (4-12) Eosinophils (%) (Auto) 0% (0-5) Basophils (%) (Auto) 1% (0-3) Band Neutrophils % 19% (1-5) Nucleated Red Blood Cells 1/100 WBC (0-24) Sodium Level 134mEq/L (134-144) Potassium Level 5.0mEq/L (3.5-5.2) Chloride Level 101mEq/L (97-108) Carbon Dioxide Level 11mmol/L (18-29) Blood Urea Nitrogen 59mg/dL (6-24) Creatinine 7.12mg/dL (0.76-1.27) Estimat Glomerular Filtration Rate 9mL/min (>59) Glucose Level 97mg/dL (60-99) Calcium Level 7.5mg/dL (8.5-10.1) Phosphorus Level 8.2mg/dL (2.5-4.9) Magnesium Level 1.8mg/dL (1.6-2.6) Total Bilirubin 0.3mg/dL (0.0-1.2) Aspartate Amino Transf (AST/SGOT) 17U/L (0-50) Alanine Aminotransferase (ALT/SGPT) 8U/L (0-44) Alkaline Phosphatase 81U/L (25-150) Total Protein 6.6g/dL (6.4-8.4) Albumin 2.1g/dL (3.4-5.0) Test 08/01/17 05:30 White Blood Count 13.1th/mm3 (3.8-10.1) Red Blood Count 3.13mil/mm3 (4.40-5.80) Hemoglobin 7.8g/dL (13.8-17.2) Hematocrit 25.1% (41.0-50.0) Mean Corpuscular Volume 80.2fL (81-100) Mean Corpuscular Hemoglobin 24.9pg (27.0-35.0) Mean Corpuscular Hemoglobin Concent 31.1% (32.0-37.0) Red Cell Distribution Width 15.4% (12.3-15.4) Platelet Count 223bil/L (150-400) Neutrophils (%) (Auto) 84.7% (40-74) Lymphocytes (%) (Auto) 8.2% (14-46) Monocytes (%) (Auto) 4.6% (4-12) Eosinophils (%) (Auto) 1.3% (0-5) Basophils (%) (Auto) 0.2% (0-3) Band Neutrophils % 1% (1-5) Prothrombin Time 16.5sec (8.1-12.5) Prothromb Time International Ratio 1.53ratio Sodium Level 135mEq/L (134-144) Potassium Level 4.8mEq/L (3.5-5.2) Chloride Level 102mEq/L (97-108) Carbon Dioxide Level 13mmol/L (18-29) Blood Urea Nitrogen 61mg/dL (6-24) Creatinine 6.74mg/dL (0.76-1.27) Estimat Glomerular Filtration Rate 10mL/min (>59) Glucose Level 93mg/dL (60-99) Calcium Level 8.1mg/dL (8.5-10.1) Phosphorus Level 8.2mg/dL (2.5-4.9) Magnesium Level 1.7mg/dL (1.6-2.6) Total Bilirubin 0.3mg/dL (0.0-1.2) Aspartate Amino Transf (AST/SGOT) 13U/L (0-50) Alanine Aminotransferase (ALT/SGPT) 7U/L (0-44) Alkaline Phosphatase 93U/L (25-150) Total Protein 6.6g/dL (6.4-8.4) Albumin 2.3g/dL (3.4-5.0) Microbiology 07/29/17 Blood Culture - Preliminary, Resulted No growth at 2 days; culture examined... 07/29/17 MRSA (PCR) - Final, Complete 07/30/17 Urine Culture - Final, Complete Mixed Urogenital Danielle Result Diagram: 08/01/17 0530 08/01/17 0530 X-Rays, CTs and MRIs X-RAY CHEST ONE VIEW, PORTABLE IMPRESSION: 1. Borderline prominence of the heart with mild to moderate vascular congestion. 2. Left infrahilar density probably represents atelectasis. Please correlate clinically to exclude pneumonia. Approved by: Arie Blake M.D. on 07/29/2017 at 8:53 Cardiac Echo Impressions ECHO on 07/30/17 Interpretation Summary Normal sinus rhythm. Normal LV size and wall thickness. There is septal dyskinesis. otherwise normal wall motion. EF is 60-65%. There is moderate RV dilation with normal RV function. Otherwise normal chamber sizes. Aortic sclerosis without stenosis. Otherwise no significant valvular abnormalities. Estimated PA systolic pressure is 71 mm Hg assuming RA pressure of 20 mm Hg. Compared to prior study 11/06/2016, mild RV dilation is new. Elevated PA systolic pressure is new. Dyskinetic septum is new. Findings are concerning for PE. Additional Diagnostics US VEINOUS LEG DUPLEX UNILATERAL, RIGHT IMPRESSION: Limited examination secondary to body habitus. The left common femoral vein not visualized and cannot be evaluated. Deep vein thrombosis involving the left common femoral vein cannot be excluded. No evidence of deep vein thrombosis involving the left superficial femoral vein or popliteal vein. Approved by: Ary Trejo MD, PhD on 07/29/2017 at 12:29 ABG pH ____7.231 - 7.350 7.450 pCO2 ___48.7__ -mmHg 35.0 45.0 pO2 ___68.5__ -mmHg 69.0 116 HCO3- ___19.7__ -mmol/L 22.0 26.0 Liter_Flow ____4.0__ -L/min Oxygen Device 1 __CANNULA - Assessment & Plan Du Flannery is a 42 year old male recurrent leg cellulitis, severe bilateral lymphedema, hypertension, chronic pain, obstructive sleep apnea who presents to [facility] emergency department with increased redness on left leg and shortness of breath. Patient was diagnosed with a PE found on echocardiogram and has acute on chronic kidney disease is worsening, likely as a result of acute tubular necrosis secondary to sepsis and septic shock. Patient has been transferred to the ICU and was intubated with a right IJ line, and a radial arterial line. Severe Sepsis with Septic Shock -Initially, WBC 21.3, 32% bands, pro-calcitonin and 85.02 -Today, WBC 13.1 with 1% bands, Procalcitonin decreased to 64 -Infectious Disease, (Dr. Eddy) following -Patient has hx of recurrent soft tissue infections of the leg. possible streptococcal toxic shock syndrome -Per ID, continue with maximal dose daptomycin, meropenem and clindamycin -Continue to monitor CBC, procalcitonin -Patient improving hemodynamically -Patient requires fluids and norepinephrine to maintain this pressures but we have been able to titrate this down Acute hypoxic hypercapnic respiratory failure -with severe metabolic and respiratory acidosis - Possibly combined effects of obesity hypoventilation syndrome and pulmonary emboli - Noted pH of 7.23 with PCO2 of 48.7 and PO2 of 68.5 on 4 L nasal cannula in the ED - Initially, RT placed BiPAP as necessary with oxygen goals between 88 and 92% given possibility of chronic CO2 retention but patient continued to decompensate and was intubated -Patient intubated on volume ventilation -Per ICU team Dr. Mckeon, continues to encourage that the patient is more upright in order to better ventilate the bases. -ICU team adjusting vent settings - Oxygenation and Ventilation are improving and FiO2 is down to 45% -Patient received Ativan and Fentanyl, but try to avoid sedation as much as possible Possible Acute pulmonary emboli -as evidenced by ECHO findings - Patient has lower extremity edema making clinical signs of DVT as well as LE US imaging difficult, however is notably sedentary lifestyle with d-dimer of 1.91 and a heart rate greater than 100, with review of records indicated that the patient is not typically tachycardic at baseline, giving him a well's score of 4.5 with a moderate risk of pulmonary emboli approximately 16.2% - Given patient's body habitus and poor kidney function no ability to perform CT PE or VQ scan - Patient was bridged on heparin drip given his kidney disease Lovenox is contraindicated, given patient's body habitus no normal anticoagulation therapy can be given, pharmacy to administer warfarin -Continue heparin drip for medical management -If patient becomes unstable, consider TPA; has been discussed with family and they have consented Acute kidney injury on chronic kidney disease with noted chronic glomerulonephritis -SYDNEY likely acute tubular necrosis secondary to septic shock - Previous nephrology notes indicate the patient has chronic glomerulonephritis however given body habitus and poor patient follow-up no definitive diagnosis has been made currently leaning to focal segmental glomerular sclerosis versus IgA nephropathy with the last renal ultrasound on 06/09/17 showing no hydronephrosis with right kidney measures 13.0 cm long; left kidney measures 15.3 cm long. Right renal cortical thickness is 1.7 cm; left renal cortical thickness is 1.6 cm. Renal cortical echotexture is normal. - Chronic kidney disease with currently uncertain staging given with baseline creatinine approximately 1.1-1.3 in December 2016 with consistent increases in creatinine every hospitalization since December to current admission - Creatinine of 4.54 admission, worse today with BUN and creatinine were 54 and 6.7 -His C3 and C4 are both normal thus excluding acute glomerulonephritis - Fractional excretion of sodium calculated at 0.6% consistent with prerenal causes for worsening kidney injury - Nephrology, Dr. Walton was consulted . We appreciate his input -Recommended giving him another dose of albumin and decreasing fluids - Also started Furosemide IV push 100 mg with albumin infusion. -inserting dialysis catheter would be difficult with this patient. Acute on chronic cellulitis of right lower extremity - poor circulation and Lymphedema are contributing factors to recurrent infections. - White blood cell count of 4.4 notably lower than prior admissions possibly atypically consistent with infectious etiology, pro-calcitonin of 0.37 typically considered indeterminate - Pt last hospitalized on 06/11/2017 for cellulitis, left AMA, at that time ID was consulted, recommended ceftriaxone while inpatient and cefdinir 300 once per day as outpatient for minimum of 10 days, with clindamycin 300 mg p.o. b.i.d. indefinitely as prophylaxis. - Blood Culture ordered and pending - MRSA negative Hypertension, chronic, not ongoing - Patient is currently normotensive - Monitor and hold home medication until more normotensive - Consider initiating alternative blood pressure medication to amlodipine considering chronic lower extremity edema - Avoid Poncho inhibitors given kidney disease with acute kidney injury - Consider initiating labetalol 100 mg by mouth twice a day as necessary Chronic normocytic anemia - Hemoglobin of 8.8 at admission with MCV of 83 - Likely secondary to chronic kidney disease with severe glomerulonephritis blood loss as well as poor erythropoietin production - Continue to monitor Depression, chronic - continue Sertraline 150 mg daily when able Chronic severe morbid Obesity - continue pulse oximetry - Pt does not use CPAP at home -Patient's BMI is 90.9 Chronic pain syndrome - Patient generally receives ativan for anxiety continue for sedation reasons while intubated -Hold home dose of oxycodone while intubated Obstructive Sleep Apnea, chronic - Patient currently intubated Chronic prediabetic [id number] - A1c of 6.3 in April 2017 - A1c on this admission 5.8 DVT prophylaxis: Heparin drip GI prophylaxis: Not indicated CODE STATUS is full. Patient's family has been made aware and understand the extent of the situation. Disposition: Patient is overall improving. Diagnostic markers of infection are trending down, oxygenation and ventilation are improving, blood pressure is increasing and kidney function is improving. Patient continues to remain on norepinephrine drip for pressure support. We will continue to monitor patient' s kidney function as of now it will be difficult to potentially insert a dialysis catheter in this patient. We will continue medical management for stimulation of the kidneys as per recommendations by nephrology. Pain Evaluation: Adequate Pain Control GI Prophylaxis: Not indicated VTE Prophylaxis: Other (heparin drip) Resuscitation Status: CPR: Attempt Resuscitation Attending Statement The patient was seen and examined together with Dr. Merritt on 08/01/17 and I have added additional information to the note above. Eusebia Merritt DO Aug 01, 2017 07:05 Luz Maria Varela DO Aug 02, 2017 12:14
[2017-08-02] VITALS (12 sets, daily range): BP systolic 74–128; BP diastolic 35–62; PULSE 96–105; RESP 22–24; O2SAT 92–98
[2017-08-02] MEDS: LORazepam 100 mg/100 mL Drip IV SCH ×2 (00:08)
--- NOTE | 2017-08-02 00:16 | ABG ---
DateTimeAnalyzed 04:21:00 -_ pH ____7.220 - 7.350 7.450 pCO2 ___35.9__ -mmHg 35.0 45.0 pO2 203 -mmHg 69.0 116 HCO3- ___14.2__ -mmol/L 22.0 26.0 ABE __-12.2__ -mmol/L -2.0 2.0 tHb ____7.9__ -g/dL 12.0 18.0 O2Hb ___97.8__ -% COHb ____0.7__ -% 0.0 1.5 MetHb ____0.9__ -% 0.4 1.5 sO2 ___99.4__ -% FIO2 ___55.0__ -% Drawn By MK - Date/Time Notified____ 04:28:00 -_ Notified By AF - Notified Whom ___Dr. Fuimaono - B 757 -mmHg tO2 ___11.3__ -Vol% Zoltan test N/A -
[2017-08-02] MEDS: Heparin 25K Unit/500mL 0.45 NS 25,000 UNIT in IV Premix 1 EACH IV SCH ×2 (00:19→06:54)
[2017-08-02] MEDS: 0.9% Sodium Chloride 1,000 ML IV SCH ×2 (01:05→11:29)
[2017-08-02] MEDS: Insulin Human REGular 300 Unit/3 mL Inj SUBQ SCH ×4 (02:30→20:30)
[2017-08-02] MEDS: Chlorhexidine 0.12% 15 mL Oral Solution MUC_MEMBRM SCH ×5 (04:38→20:45)
--- NOTE | 2017-08-02 05:03 | ABG ---
DateTimeAnalyzed 04:56:00 -_ pH ____7.183 - 7.350 7.450 pCO2 ___36.8__ -mmHg 35.0 45.0 pO2 108 -mmHg 69.0 116 HCO3- ___13.3__ -mmol/L 22.0 26.0 ABE __-13.7__ -mmol/L -2.0 2.0 tHb ____7.8__ -g/dL 12.0 18.0 O2Hb ___95.6__ -% COHb ____0.7__ -% 0.0 1.5 MetHb ____0.7__ -% 0.4 1.5 sO2 ___97.0__ -% 25.0 FIO2 ___45.0__ -% PEEP ____5.0__ -cmH2O Set_RR ___22.0__ -b/min Vt __700.0__ -L Drawn By AF - Date/Time Notified____ 05:02:00 -_ Spontaneous_RR ___22.0__ -b/min Notified By AF - B 763 -mmHg tO2 ___10.7__ -Vol% OrderingPhysicianInitials bak - Zoltan test N/A -
[2017-08-02] MEDS ORDERED: Albuterol-Ipratropium 3 mL Inhalation Solution ONE (05:08)
[2017-08-02 06:09] LABS: BASOPHILS % (AUTO) 0.1 % (0-3); MONOCYTES % (AUTO) 6.2 % (4-12); Mean Corpuscular Hemoglobin 24.5 pg (27.0-35.0); Mean Corpuscular Volume 79.3 fL (81-100); NEUTROPHILS % (AUTO) 82.6 % (40-74); Platelet Count 215 bil/L (150-400)
--- NOTE | 2017-08-02 06:22 | NUR ---
Pressers/Vent Pt's work of breathing increasing throughout the night. RT Stephanie called to assess patient. Dr. Starks consulted regarding PRN nebulizer treatments. Pt having intermittent coughing. Pt's pressers titrated down throughout the night. ART line becoming more and more positional. Dressing changed on ART line and Central Line dressing as there is no stat lock holding the line in place and sutures to secondary securement device to prevent advancement of catheter only.
[2017-08-02 06:30] LABS: INR 2.31 ratio
[2017-08-02 06:31] LABS: Magnesium 1.8 mg/dL (1.6-2.6); Phosphorus 8.5 mg/dL (2.5-4.9)
--- NOTE | 2017-08-02 08:19 | PCM.PHAPRO ---
Progress Date of Service: Aug 02, 2017 Requesting Provider: Hardeep Mckeon MD right lower leg pain also PE.. on hep drip . warfarin goal 2-3.. currently 2.31 no warfarin tonight follow inr 08/03 Venkat Go [facility] Aug 02, 2017 08:19
[2017-08-02] MEDS: Famotidine Inj 20 MG in IV Premix 1 EACH IV SCH ×2 (08:36→20:46)
[2017-08-02] MEDS: Clindamycin 900 mg/50 mL D5W IV SCH ×2 (08:36→17:57)
[2017-08-02] MEDS: Meropenem Inj 1,000 MG in 0.9% Sodium Chloride 100 ML IV SCH (08:36)
[2017-08-02] MEDS: Albuterol-Ipratropium 3 mL Inhalation Solution NEB SCH ×4 (09:03→20:18)
--- NOTE | 2017-08-02 09:52 | DRSVH ---
PROCEDURE: X-RAY CHEST ONE VIEW, PORTABLE ([id number]) INDICATIONS: respiratory failure, septic shock TECHNIQUE: One view of the chest was acquired. COMPARISON: [facility], CR, XR CHEST 2VW, 05/15/2017, 11:33. [facility], CR, XR CHEST 1VW (PORTABLE), 08/01/2017, 5:53. FINDINGS: Surgical changes and devices: garage hand leads are seen over the chest. There is an endotracheal tube which ends approximately 4.5 cm above the abdiel in the midline. There is an NG tube with its p osition beyond the subcarinal area cannot be identified. This is likely because the tube itself canno t be seen. A right internal jugular central line is present the tip of which overlies the right upper lung field . Its position inside or outside of the vena cava cannot be evaluated. However the density of the med iastinum appears to be increased in the right side in the position of this catheter would be suspect. Lungs and pleura: Poor depth of inspiration in a patient with chronically elevated right hemidiaphrag m. Poor amount of aeration question of vasculature congested in appearance. Mediastinum: Mediastinal contours appear normal. Heart size is thought to be enlarged but difficult to be certain. Bones and chest wall: No suspicious bony lesions. Overlying soft tissues appear unremarkable. IMPRESSION: No change is seen in the chest x-ray since the previous recent films. Poor depth of inspiration, question of some fluid overload or congestive heart failure. Probable increased density of the mediastinum was her difficulty with placement of central line. Nurs ing staff was called at the time of this dictation to check good blood flow of the right internal jug ular vein. It is unchanged in position since recent films however. Dictated by: Joseph Miller M.D. on 08/02/2017 at 9:38 Approved by: Joseph Miller M.D. on 08/02/2017 at 9:51
--- NOTE | 2017-08-02 12:09 | PROG NOTE ---
[address] [address] PROGRESS NOTE PATIENT: PO DELGADO : 1975 MR#: [id number] ADMIT: 07/29/2017 JOB ID: [id number] DATE: 08/02/2017 PROBLEM LIST: 1. Streptococcal toxic shock syndrome. 2. Acute on chronic renal failure. 3. Septic shock. 4. Super morbid obesity. 5. Obesity hypoventilation syndrome. 6. Acute on chronic hypoxemic hypercarbic respiratory failure. 7. Pulmonary embolism. 8. Pulmonary hypertension. SUBJECTIVE: None. OBJECTIVE: Temperature 36.9, pulse about 100, respiratory rate 22 with ventilator set at 22. Blood pressure 110/57, O2 sat on FiO2 45%, PEEP of 5, is 96%. I and O shows 6.2 L out. Urine output of 500 mL yesterday and 100 mL of gastric drainage. General appearance: Some patient ventilator dyssynchrony. Tube is somewhat positional his head rotated to the left there is a problem suctioning him. This apparently is not new. Head repositioned. In addition, the patient was supine. I got the head of the bed elevated about 30 degrees. Better patient ventilator synchrony. Suctioning obtained only a small amount of relatively clear white tracheal secretions. Right radial arterial line getting temperamental. To get things situated we will see if we can save this line. Cuff pressure is obtainable and show reasonable blood pressure currently running 120 over about 60. Chest fair breath sounds bilaterally. Diffuse crackles throughout both lung hogan. It cleared somewhat with suctioning and better ventilator synchrony. Heart distant heart tones. Almost inaudible. Abdomen soft. Quiet. Extremities moderate pretibial edema. Skin of the of the distal lower extremities from almost in knee down remains scarred with cobblestoning cauliflower like appearance. Warm, though not hot. No leakage. No significant areas of localized erythema apparent. LABORATORY: Shows a white count of 16,600 mildly increased, 82 polymorphonuclears no bands, 8 lymphocytes, 6 monocytes. Hemoglobin stable at 7.9. Platelet count slowly decreasing, currently at 215 from a peak of 284. Sodium 135, potassium 4.9, chloride 103. CO2 is 13 and stable. BUN 69 and stable. Creatinine 7.31 and stable. Calcium 8.1 with an albumin of 2.4. Phosphorus elevated at 8.5 and relatively stable. Magnesium normal at 1.8. Total bilirubin 0.4, AST 13, ALT 8, alkaline phosphatase 111 and stable. PTT is 100 seconds. INR is 2.31 (Patient apparently has been receiving Coumadin.). Urine for Legionella antigen is negative. Urine growing mixed urogenital mario unchanged from numerous previous studies. 50 to 100,000 CFUs per mil. Awaiting culture results. DIAGNOSTIC STUDIES: Chest x-ray shows no changes. Endotracheal tube is about 4.5 cm above the abdiel. NG tube cannot be visualized. Arterial blood gases on an FiO2 of 55%, PEEP of 5, rate of 22, tidal volume of 700 shows a pO2 of 203, pCO2 of 35, pH of 7.22, bicarbonate of 14.2. With decreasing the FiO2 to 0.45, tidal volume 700, rate of 22, PEEP of 5, pO2 180, pCO2 36, pH 7.31. ASSESSMENT AND PLAN: 1. Septic shock. Blood pressure improving. We may be losing our arterial line, but peripheral blood pressures have reflected previous blood pressures obtained with the arterial line. Will see if repositioning can save the arterial line. In any case, nor epi infusion is down to 0.04 mics per kg per minute. Hemodynamics have been relatively stable by trilogy while I was working showed a cardiac index of 4.1, stroke volume index of 39, systemic vascular resistance index of 1052. Intraabdominal pressure running 18 and essentially unchanged. I do not think we need the strict hemodynamic monitoring at this point on lower dose of norepinephrine at this point. 2. Acute on chronic renal failure. Urine output still not increasing. In spite of albumin and furosemide yesterday there has not been much increase. Not much in the bag at this point, although the nurses record 500 mL yesterday. Only a minimal amount in this morning. Apparently had 230 mL last night, so maybe there has been more improvement than I think. However, the urine remains extremely dark. Will try the albumin followed by Bhavesh as his I and O remains quite worrisome with the patient being on almost 17 L positive during his stay in the ICU the last four days. 3. Pulmonary embolism. No particular problems with the pulmonary embolism. Blood pressure seems to be reasonable which is our only scale to monitor this. Will speak with the primary team about Coumadin. Not sure that we should not stop the Coumadin so that interventions can be more amenable without having to worry about bleeding. 4. Super morbid obesity. Making lines a bit difficulty. Will need to recheck lines that we have. If we lose the radial arterial line I do not know that would be a big problem. 5. His weight makes lines, care, and consideration for dialysis or consideration for transport quite difficult. PLAN: 1. Albumin 50 g IV followed by furosemide 100 mg IV. 2. Consider discontinuing the Coumadin and possibly reversing it. 3. Consider decreasing IV fluids and starting trophic feeding. Discussed the situation in detail with the family in terms of current status, relative lack of improvement today, hazards of dialysis although I do not know that he needs dialysis at this point, and risks of transport though it is unclear whether any facility can deal with his weight expeditiously. TIME: Time spent so far in critical care is 70 minutes.
--- NOTE | 2017-08-02 12:26 | PCM.PNNEPH ---
Subjective Date of Service Aug 02, 2017 Subjective His hemodynamics has been improved slowly. Vasopressor has been titrated down. Urine output remains low, 500 mL over the past 24 hours. IV Lasix and albumin received yesterday. Serum creatinine is relatively stable. Exam Vital Signs Vital Sign - Last Date Time Temp Pulse Resp B/P Pulse Ox O2 Delivery O2 Flow Rate FiO2 08/02/17 09:03 101 110/57 96 45 08/02/17 07:33 36.9 22 Mechanical Ventilator 07/30/17 09:28 3.00 Intake and Output 08/01/17 08/01/17 08/02/17 Cumulative From/Thru 15:00 23:00 07:00 07/29/17 08:35 - 08/02/17 06:00 Intake Total 3155 ml 2761 ml 90734 ml Output Total 250 ml 430 ml 3615 ml Balance 2905 ml 2331 ml 65126 ml Intake Oral 0 ml 1303 ml IV Total 3155 ml 2761 ml 08515 ml Output Urine Total 250 ml 230 ml 1065 ml Gastric Drainage Total 200 ml 2550 ml Other 0 ml 0 ml # Voids 1 # Bowel Movements 0 0 Exam GENERAL: patient is intubated sedated, morbidly obese. HEENT: Head is normocephalic and atraumatic. NECK: Right triple-lumen in place, unable to access JVD. LUNGS: ET tube in place, coarse crackles B/L. HEART: Normal S1/S2, Regular rate and rhythm, distant heart sounds ABDOMEN: Soft, obese. Decreased bowel sounds. EXTREMITIES: Chronic skin changes, lymphedema, cobblestone appearance. Lab and Diagnostics Result Diagram: 08/02/17 0608/02/17 0600 X-Rays, CTs and MRIs X-RAY CHEST ONE VIEW, PORTABLE IMPRESSION: 1. Borderline prominence of the heart with mild to moderate vascular congestion. 2. Left infrahilar density probably represents atelectasis. Please correlate clinically to exclude pneumonia. Approved by: Arie Blake M.D. on 07/29/2017 at 8:53 Cardiac Echo Impressions ECHO on 07/30/17 Interpretation Summary Normal sinus rhythm. Normal LV size and wall thickness. There is septal dyskinesis. otherwise normal wall motion. EF is 60-65%. There is moderate RV dilation with normal RV function. Otherwise normal chamber sizes. Aortic sclerosis without stenosis. Otherwise no significant valvular abnormalities. Estimated PA systolic pressure is 71 mm Hg assuming RA pressure of 20 mm Hg. Compared to prior study 11/06/2016, mild RV dilation is new. Elevated PA systolic pressure is new. Dyskinetic septum is new. Findings are concerning for PE. Additional Diagnostics US VEINOUS LEG DUPLEX UNILATERAL, RIGHT IMPRESSION: Limited examination secondary to body habitus. The left common femoral vein not visualized and cannot be evaluated. Deep vein thrombosis involving the left common femoral vein cannot be excluded. No evidence of deep vein thrombosis involving the left superficial femoral vein or popliteal vein. Approved by: Ary Trejo MD, PhD on 07/29/2017 at 12:29 ABG pH ____7.231 - 7.350 7.450 pCO2 ___48.7__ -mmHg 35.0 45.0 pO2 ___68.5__ -mmHg 69.0 116 HCO3- ___19.7__ -mmol/L 22.0 26.0 Liter_Flow ____4.0__ -L/min Oxygen Device 1 __CANNULA - Plan Impression 1. Acute kidney injury superimposed chronic kidney disease secondary to acute necrosis. 2. 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 3. Acute on chronic hypoxemic hypercarbic respiratory failure. 4. Anion gap metabolic acidosis. 5. Super obese. Plan: Serum creatinine seems to be plateauing. We will continue only supportive treatment. I will start him on 25% albumin 100 mL every 8 hours. Start Lasix drip at 7.5 mg per hour. There is no urgent hemodialysis indicated at this moment. If renal replacement therapy is required, we will transfer him to tertiary care center. Damián Cabrera MD Aug 02, 2017 12:26
[2017-08-02] MEDS: Furosemide Inj 100 MG in 0.9% Sodium Chloride 90 ML IV SCH ×2 (13:00→23:52)
[2017-08-02] MEDS: Albumin 25% 25 GM in IV Premix 1 EACH IV SCH ×2 (13:00→20:46)
--- NOTE | 2017-08-02 14:32 | ABG ---
DateTimeAnalyzed 14:24:00 -_ pH ____7.136 - 7.350 7.450 pCO2 ___39.5__ -mmHg 35.0 45.0 pO2 ___92.6__ -mmHg 69.0 116 HCO3- ___12.8__ -mmol/L 22.0 26.0 ABE __-15.0__ -mmol/L -2.0 2.0 tHb ____8.0__ -g/dL 12.0 18.0 O2Hb ___93.3__ -% COHb ____0.9__ -% 0.0 1.5 MetHb ____1.1__ -% 0.4 1.5 sO2 ___95.2__ -% 25.0 FIO2 ___60.0__ -% PRVC 700 - PEEP ____5.0__ -cmH2O Set_RR ___22.0__ -b/min Drawn By NB - Date/Time Notified____ 14:32:00 -_ Spontaneous_RR ___30.0__ -b/min Oxygen Device 1 VENTILATOR - Notified By NB - Notified Whom ___DR. KENDREGAN - B 765 -mmHg tO2 ___10.6__ -Vol% Zoltan test N/A -
[2017-08-02] MEDS: fentaNYL 2,500 mCg/250 mL 2,500 MCG in IV Premix 1 EACH IV SCH (15:13)
--- NOTE | 2017-08-02 15:16 | DRSVH ---
PROCEDURE: X-RAY CHEST ONE VIEW, PORTABLE ([id number]) INDICATIONS: RESP DISTRESS TECHNIQUE: One view of the chest was acquired. COMPARISON: None. FINDINGS: Surgical changes and devices: Endotracheal tube is 2.4 cm above the abdiel. There is a right jugular central line unchanged in position since previous images. Lungs and pleura: Aeration of the lungs is relatively poor with chronic elevation right hemidiaphragm . Pulmonary vasculature appears prominent. Mediastinum: Mediastinal contours appear normal. Heart size is normal. Bones and chest wall: No suspicious bony lesions. Overlying soft tissues appear unremarkable. IMPRESSION: No change is seen in the chest x-ray since the film of 0525 hrs. Dictated by: Joseph Miller M.D. on 08/02/2017 at 14:58 Approved by: Joseph Miller M.D. on 08/02/2017 at 15:15
--- NOTE | 2017-08-02 16:18 | DRSVH ---
PROCEDURE: X-RAY RIGHT TIBIA/FIBULA, TWO VIEWS ([id number]) INDICATIONS: soft tissue infection of right calf TECHNIQUE: 2 views of the tibia and fibula were acquired. COMPARISON: None. FINDINGS: Bones: No fractures or dislocations. No suspicious bony lesions. Soft tissues: No suspicious soft tissue calcifications or masses. IMPRESSION: No bony abnormality is seen. No air in the soft tissues is identified. Dictated by: Joseph Miller M.D. on 08/02/2017 at 16:15 Approved by: Joseph Miller M.D. on 08/02/2017 at 16:16
--- NOTE | 2017-08-02 16:19 | DRSVH ---
PROCEDURE: X-RAY FEMUR, 1 VIEW RIGHT INDICATIONS: soft tissue infection of right calf and thigh TECHNIQUE: 2 views of the femur were acquired. COMPARISON: None. FINDINGS: Bones: No fractures or dislocations. No suspicious bony lesions. Soft tissues: No suspicious soft tissue calcifications or masses. IMPRESSION: No acute bony abnormality is seen. Air and soft tissue is not identified. Film detail is limited by the patient's size. Dictated by: Joseph Miller M.D. on 08/02/2017 at 16:16 Approved by: Joseph Miller M.D. on 08/02/2017 at 16:17
--- NOTE | 2017-08-02 16:26 | NUR ---
Social Work Note: Brief Note/Attempted Initial Assessment Data& Assessment: Pt remains on the vent. [employer] attempted to meet with pt family at bedside to complete initial assessment. Pt family members visibly upset and crying. [employer] inquired with RN if there was any changes in pt condition. Per RN, pt is not improving. Per Pulmonology documentation, counter clerk discussed prognosis with pt family this afternoon. [employer] to continue to follow for prognosis and follow up with pt family when more appropriate to complete initial assessment. [employer] to continue to follow. Plan: Pt Remains on the vent. . [employer] to continue to follow for prognosis and follow up with pt family when more appropriate to complete initial assessment. SAÚL Turner
--- NOTE | 2017-08-02 16:28 | PROG NOTE ---
[address] [address] PROGRESS NOTE PATIENT: PO DELGADO : 1975 MR#: [id number] ADMIT: 07/29/2017 JOB ID: [id number] DATE: 08/02/2017 PULMONARY CRITICAL CARE FOLLOWUP (SECOND NOTE): PROBLEM: 1. Probable toxic shock syndrome, streptococcal. 2. Cough. Called emergently regarding cough. In spite of different modalities, patient continues to cough. OBJECTIVE: Blood pressure 102/58. Decreased a little bit since sedation was increased in attempt to control the cough. Patient breathing in the mid 30s with significant patient ventilator dyssynchrony. Chest: Fair breath sounds bilaterally. Lung hogan are clear on the left. Maybe a few crackles on the right. Suctioning is bereft of sputum. Heart: Regular rhythm. Distant tones. Abdomen is soft. Extremities: More of a duskiness and induration of the right lower extremity. Ecchymoses from the buttocks to the ankle. Somewhat more of a grayish appearance to the calf with some blebs. Stat chest x-ray shows good position of the endotracheal tube. There is actually somewhat better ventilation of the right lower extremity with aeration of the right lower lung laterally. Consolidated medially, though this area of the lung has shown opacification at the lower lung field with appearance of mildly elevated right hemidiaphragm. Central line was rechecked with good blood return from all three ports. X-rays reviewed with Radiology. No evidence for mucous plugging or atelectasis of the lung. All lines unchanged. Constant widening of the mediastinum maybe slightly unchanged. Discussed interventions. Decided to obtain an x-ray of the right leg on the off chance there is some soft tissue gas consistent with worsening infection. ASSESSMENT: 1. Patient ventilator dyssynchrony. Tried pressure control ventilation. Will see if that helps. Also given some viscous lidocaine. If these are ineffective, may need to paralyze the patient in order to get control of his breathing and ensure good ventilation. Blood pressure is somewhat lower, though presumably due to the effects of the increased sedation. In addition, we have stopped his IV fluids and started Lasix to see if we can get renal function to return. 2. Right lower extremity abnormality. Leg looks somewhat worse to me today. Seems more grayish and certainly has some ecchymoses. Whether this represents bleeding from heparin, effects of Coumadin necrosis, though it does not have a true appearance of Coumadin necrosis, or whether this represents an infection involving the muscle is unclear. Will check a stat H and H and obtain films. PLAN: 1. Viscous lidocaine. 2. X-ray of right lower extremity, both thigh and calf. 3. Discontinue heparin. 4. Discontinue Coumadin. 5. Stat H and H. 6. Pressure control ventilation. 7. If unable to control ventilation, will consider paralysis. Discussed the situation and findings with the family in detail. Additional time spent in critical care, 55 minutes.
[2017-08-02] MEDS ORDERED: Lidocaine 1%-Epi 1:100,000 50 mL Inj SUBQ ONE (18:25)
--- NOTE | 2017-08-02 19:40 | NUR ---
Respiratory/Hemodynamics... Pt remains sedated on vent, opens eyes briefly when respositioned. Noted when pt is turned he becomes more tachypnic with resp rates in the 40's, and does not recover quickly. Have been unable to get full skin assessment of pt's back side and attempt to place a mipilex to coccyx had to be stopped due to instability. Dr Mckeon was notified this afternoon for increased work of breathing with resp rates increases and abdominal muscle use with each breath. Stat CXR, ABG done. Pt was bolused with fentanyl and ativan and this has been effective in lessening work of breathing and pt appears more relaxed. MD also updated on fact that R leg is now appearing more splotchy with purple areas. Foot remains pink with pulses present by doppler. Leg is weeping copious amts of serous fluid, soaking linens. Heparin gtt stopped per MD order. Family is aware of pt's status and concern of kidney function. Has had 58 ml of uop this shift.
[2017-08-02] MEDS: Norepineph 8,000 mCg/250 mL NS 8,000 MCG in IV Premix 1 EACH IV SCH (21:18)
[2017-08-02 21:32] LABS: Mean Corpuscular Hemoglobin 24.3 pg (27.0-35.0); Mean Corpuscular Volume 79.3 fL (81-100); Platelet Count 196 bil/L (150-400)
[2017-08-02 21:56] LABS: BASOPHILS % (AUTO) 0 % (0-3); EOSINOPHILS % (AUTO) 2 % (0-5); MONOCYTES % (AUTO) 3 % (4-12); NEUTROPHILS % (AUTO) 86 % (40-74)
--- NOTE | 2017-08-02 22:43 | PCM.PNMED ---
Subjective Date of Service Aug 02, 2017 Subjective overnight: Patient had increased work of breathing and was initiated on nebulizer treatments. No acute events otherwise noted. Today: The patient continues to be intubated and sedated with poor renal function as well as requiring significant pressor support. Exam Vital Signs Vital Sign - Last Date Time Temp Pulse Resp B/P Pulse Ox O2 Delivery O2 Flow Rate FiO2 08/02/17 05:14 101 110/57 94 45 08/02/17 03:01 24 Mechanical Ventilator 08/01/17 23:07 37.0 07/30/17 09:28 3.00 Intake and Output 08/01/17 08/01/17 08/02/17 Cumulative From/Thru 14:59 22:59 06:59 07/29/17 08:35 - 08/02/17 06:00 Intake Total 3155 ml 2761 ml 87491 ml Output Total 250 ml 430 ml 3615 ml Balance 2905 ml 2331 ml 44959 ml Intake Oral 0 ml 1303 ml IV Total 3155 ml 2761 ml 54824 ml Output Urine Total 250 ml 230 ml 1065 ml Gastric Drainage Total 200 ml 2550 ml Other 0 ml 0 ml # Voids 1 # Bowel Movements 0 0 Exam General: Morbidly obese male intubated and sedated, lying in over sized hospital bed Eyes: Pupils equal round and reactive to light, anicteric sclera, noninjected conjunctiva HENT: Normocephalic atraumatic, ET tube in place Neck: Supple, trachea midline, thick neck without thyromegaly or JVD, right IJ in place without fluctuance or erythema in surrounding subcutaneous tissue Cardiovascular: Very distant heart sounds noted however Regular rate and regular rhythm, S1-S2 present, without murmurs rubs or gallops noted Lungs: Distant lung sounds noted however Clear to auscultation bilaterally without wheezing rales or rhonchi Abdomen: Soft, induration and erythema as well as stippling noted in lower abdomen consistent with chronic lymphedema, nondistended, tympanic to percussion , normal active bowel sounds, unable to assess organomegaly due to body habitus Extremities: Significant lymphedema noted in lower extremities bilaterally worse than the right leg than left with induration and erythema as well as skin stippling, gross tenderness to palpation bilaterally right worse than left, notably decreased pulses bilaterally at dorsalis pedis and posterior tibialis compared to radial in upper extremities bilaterally : Reddy catheter in place Skin: Significant noted induration with erythema and exudate drainage from bilateral lower extremities below knee right greater than left with significant discoloration of the RLE Neuro: Unable to assess given intubated and sedated Psych: Unable to assess given intubated and sedated IVs and Medications Medications Reviewed: Medications were reviewed in detail Lab and Diagnostics Result Diagram: 08/01/17 1537 08/02/17 0600 X-Rays, CTs and MRIs X-RAY CHEST ONE VIEW, PORTABLE IMPRESSION: 1. Borderline prominence of the heart with mild to moderate vascular congestion. 2. Left infrahilar density probably represents atelectasis. Please correlate clinically to exclude pneumonia. Approved by: Arie Blake M.D. on 07/29/2017 at 8:53 X-RAY CHEST ONE VIEW, PORTABLE IMPRESSION: No change is seen in the chest x-ray since the film of 0525 hrs. Approved by: Joseph Miller M.D. on 08/02/2017 at 15:15 Cardiac Echo Impressions ECHO on 07/30/17 Interpretation Summary Normal sinus rhythm. Normal LV size and wall thickness. There is septal dyskinesis. otherwise normal wall motion. EF is 60-65%. There is moderate RV dilation with normal RV function. Otherwise normal chamber sizes. Aortic sclerosis without stenosis. Otherwise no significant valvular abnormalities. Estimated PA systolic pressure is 71 mm Hg assuming RA pressure of 20 mm Hg. Compared to prior study 11/06/2016, mild RV dilation is new. Elevated PA systolic pressure is new. Dyskinetic septum is new. Findings are concerning for PE. Additional Diagnostics US VEINOUS LEG DUPLEX UNILATERAL, RIGHT IMPRESSION: Limited examination secondary to body habitus. The left common femoral vein not visualized and cannot be evaluated. Deep vein thrombosis involving the left common femoral vein cannot be excluded. No evidence of deep vein thrombosis involving the left superficial femoral vein or popliteal vein. Approved by: Ary Trejo MD, PhD on 07/29/2017 at 12:29 ABG pH ____7.231 - 7.350 7.450 pCO2 ___48.7__ -mmHg 35.0 45.0 pO2 ___68.5__ -mmHg 69.0 116 HCO3- ___19.7__ -mmol/L 22.0 26.0 Liter_Flow ____4.0__ -L/min Oxygen Device 1 __CANNULA - Assessment & Plan Du Flannery is a 42 year old male recurrent leg cellulitis, severe bilateral lymphedema, hypertension, chronic pain, obstructive sleep apnea who presents to [facility] emergency department with increased redness on left leg and shortness of breath. Patient has been transferred to the ICU and was intubated by the anesthesiologist and placed on volume ventilation. A right IJ line was placed in addition to a radial arterial line. Antibiotics were started per infectious disease. Acute on chronic kidney disease is worsening, likely as a result of acute tubular necrosis secondary to sepsis and septic shock. Patient was found to have evidence of possible pulmonary embolism from echocardiogram and is continuing heparin drip. Diagnostic markers of infection are trending down, oxygenation and ventilation are stable, blood pressure is improved and kidney function is stable. Patient continues to remain on norepinephrine drip for pressure support. Severe Sepsis with Septic Shock -Initially, WBC 21.3, 32% bands, pro-calcitonin and 85.02 -Today, WBC 16.6 with 0% bands, Procalcitonin trending down -Infectious Disease, Dr. Eddy following -Patient has hx of recurrent soft tissue infections of the leg. possible streptococcal toxic shock syndrome -Per ID, continue with maximal dose daptomycin, meropenem and clindamycin -Continue to monitor CBC, procalcitonin -Patient requires fluids and norepinephrine to maintain this pressures, currently unable to titrate norepinephrine off, nephrology to initiate Lasix drip given tenuous blood pressures and significant volume overload after acute decompensation requiring IV fluids Acute hypoxic hypercapnic respiratory failure -with severe metabolic and respiratory acidosis - Possibly combined effects of obesity hypoventilation syndrome and pulmonary emboli - Noted pH of 7.23 with PCO2 of 48.7 and PO2 of 68.5 on 4 L nasal cannula in the ED - Initially, RT placed BiPAP as necessary with oxygen goals between 88 and 92% given possibility of chronic CO2 retention but patient continued to decompensate and was intubated -Patient intubated on volume ventilation -Per ICU team Dr. Mckeon, try to get the patient more upright in order to better ventilate the bases. -ICU team adjusting vent settings -Oxygenation and Ventilation remained stable -Patient received Ativan and Fentanyl, but try to avoid sedation as much as possible Possible Acute pulmonary emboli -as evidenced by ECHO findings - Patient has lower extremity edema making clinical signs of DVT as well as LE US imaging difficult, however is notably sedentary lifestyle with d-dimer of 1.91 and a heart rate greater than 100, with review of records indicated that the patient is not typically tachycardic at baseline, giving him a well's score of 4.5 with a moderate risk of pulmonary emboli approximately 16.2% - Given patient's body habitus and poor kidney function no ability to perform CT PE or VQ scan - Warfarin and heparin drip discontinued per service station attendant Dr. 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 Right renal cortical thickness is 1.7 cm; left renal cortical thickness is 1.6 cm. Renal cortical echotexture is normal. - Chronic kidney disease with currently uncertain staging given with baseline creatinine approximately 1.1-1.3 in December 2016 with consistent increases in creatinine every hospitalization since December to current admission - Creatinine of 4.54 admission, worse today with BUN and creatinine were 54 and 6.7 -His C3 and C4 are both normal thus excluding acute glomerulonephritis - Fractional excretion of sodium calculated at 0.6% consistent with prerenal causes for worsening kidney injury - Nephrology, Dr. Hernandez to initiate a Lasix drip with continued albumin infusion scheduled, this case was discussed extensively with nephrology given the guarded prognosis - No plans for dialysis at this time given infectious state Acute on chronic cellulitis of right lower extremity - poor circulation and Lymphedema are contributing factors to recurrent infections. - White blood cell count of 4.4 notably lower than prior admissions possibly atypically consistent with infectious etiology - Pt last hospitalized on 06/11/2017 for cellulitis, left AMA, at that time ID was consulted, recommended ceftriaxone while inpatient and cefdinir 300 once per day as outpatient for minimum of 10 days, with clindamycin 300 mg p.o. b.i.d. indefinitely as prophylaxis. - Blood Culture ordered and pending - MRSA negative - Continue with ID recommendations of clindamycin, daptomycin, meropenem Acute worsening of Chronic normocytic anemia - Hemoglobin of 8.8 at admission with MCV of 83 - Chronic anemia is likely secondary to chronic kidney disease with severe glomerulonephritis blood loss as well as poor erythropoietin production - Hemoglobin continues to trend down to hemoglobin in the mid sevens, currently uncertain if this is due to heparin drip and warfarin anticoagulation resulting in a spontaneous bleed or secondary to hemodilution given significant maintenance fluids resulting in 18 L net positive - Warfarin and heparin drip discontinued per service station attendant Dr. Mckeon recommendations which was discussed extensively given the patient's poor prognosis with pulmonary emboli not on anticoagulation currently intubated and sedated - Monitor Hypertension, chronic, not ongoing -Patient is currently normotensive - Monitor and hold home medication until more normotensive - Consider initiating alternative blood pressure medication to amlodipine considering chronic lower extremity edema - Avoid Poncho inhibitors given kidney disease with acute kidney injury - Consider initiating labetalol 100 mg by mouth twice a day as necessary Depression, chronic - continue Sertraline 150 mg daily when able Chronic severe morbid Obesity - continue pulse oximetry - Pt does not use CPAP at home -Patient's BMI is 90.9 Chronic pain syndrome - Patient generally receives ativan for anxiety continue for sedation reasons while intubated -Hold home dose of oxycodone while intubated Obstructive Sleep Apnea, chronic - Patient currently intubated Chronic prediabetic [id number] - A1c of 6.3 in April 2017 - A1c on this admission 5.8 DVT prophylaxis: Heparin drip discontinued given worsening anemia GI prophylaxis: Not indicated CODE STATUS is full. Disposition: Prognosis is tenuous given the primary diagnosis. The patient is maintained on antibiotics including clindamycin, daptomycin, meropenem for his underlying infection likely believed to be strep given the ASO titer and cellulitis as the primary infection site. Pro-calcitonin continues to trend down however hemoglobin is also trending down which is concerning given the patient's diagnosis of pulmonary emboli currently on heparin drip. The patient' s heparin drip and warfarin will be discontinued at this time per service station attendant recommendations given ongoing risk for bleeding and possible adverse reaction to the coumadin and potentially heparin. The patient's INR is thereapeutic and will continue to cover him until this can be sorted out. The patient will have further blood work later today to ensure that his platelets are not decreasing. GI Prophylaxis: Not indicated VTE Prophylaxis: Other (heparin drip) Resuscitation Status: CPR: Attempt Resuscitation Attending Statement The patient was seen and examined together with Dr. Devi on 08/02/17 and I have added additional information to the note above. Charlie Devi DO Aug 02, 2017 07:12 Luz Maria Varela DO Aug 06, 2017 13:53
[2017-08-03] VITALS (22 sets, daily range): BP systolic 104–140; BP diastolic 37–50; PULSE 98–110; RESP 22–25; O2SAT 93–98
[2017-08-03] MEDS: Chlorhexidine 0.12% 15 mL Oral Solution MUC_MEMBRM SCH ×7 (00:09→23:53)
[2017-08-03] MEDS: Clindamycin 900 mg/50 mL D5W IV SCH ×4 (00:09→23:53)
--- NOTE | 2017-08-03 00:23 | ABG ---
DateTimeAnalyzed 00:13:39 -_ pH ____7.139 - 7.350 7.450 pCO2 ___37.7__ -mmHg 35.0 45.0 pO2 154 -mmHg 69.0 116 HCO3- ___12.8__ -mmol/L 22.0 26.0 ABE __-14.7__ -mmol/L -2.0 2.0 tHb ____7.5__ -g/dL 12.0 18.0 O2Hb ___98.4__ -% COHb ____1.7__ -% 0.0 1.5 MetHb ____0.2__ -% 0.4 1.5 FIO2 ___45.0__ -% PRVC 700 - PEEP ____5.0__ -cmH2O Set_RR 22 -b/min Drawn By AF - Date/Time Notified____ 00:22:00 -_ Spontaneous_RR 22 -b/min Oxygen Device 1 VENTILATOR - Notified By AF - Notified Whom ___Dr. Olvera - K+ ____5.3__ -mmol/L 3.5 5.0 Zoltan test N/A -
[2017-08-03] MEDS: Albuterol-Ipratropium 3 mL Inhalation Solution NEB SCH ×6 (00:36→21:12)
[2017-08-03] MEDS ORDERED: Cisatracurium 2,000 mCg/mL 10 mL Inj IV ONE (00:40)
[2017-08-03] MEDS: LORazepam 100 mg/100 mL Drip IV SCH ×2 (01:53)
--- NOTE | 2017-08-03 02:27 | NUR ---
respiratory status pt began stacking breaths and vent alarming late during the evening, fentanyl gtt initially at 175mcg/hr, boluses given and fentanyl gtt titrated up to 225mcg/hr, ativan gtt initially at 3mg/hr, boluses of ativan given also, ativan gtt increased to 4 mg/hr, pt still not compliant with vent, md aware and in to see pt, couple more 2mg boluses of ativan given and 50mcg of fentanyl given, pt more compliant with vent but not completely, abg's done, double checked with md about nimbex order, nimbex bolus given and gtt stated, weaning to goal of 2/4 tof, bis initially =22, ativan gtt decreased to 3mg/hr again, see flow sheet for bis monitoring, very low uop, cvp=15, norepi gtt increased with increase in sedation from 0.06mcg/kg/min to 0.8mcg/kg/min, weaned down post nimbex starting, bp improved post nimbex, see flow sheet, lasix gtt continues at 7.5mg/hr, very low uop, see flow sheet, vent at .45 fio2, sats 95-97% pre nimbex and 93-94% post nimbex, ls-course/decreased, sx minimal amount of thin whitish sputum, ogt to lis, bt's hypoactive, no bm, uap=17, lower extremities very edematous, weaping, right calf more then left, right calf with abd and kerlex dressing, wound care consult done, pt's allowed nursing staff to lift pt with lift sheet, put dry clean linen on bed but did not allow staff to change damp/wet old lift sheet, she did not want pt turned side to side tonight either, teaching done on pressure ulcer prevention, no changes in request, see ccu flow sheet, plan: titrate gtts for comfort and paralyzing, vent support,
[2017-08-03] MEDS: fentaNYL 2,500 mCg/250 mL 2,500 MCG in IV Premix 1 EACH IV SCH ×2 (02:54→18:44)
[2017-08-03] MEDS: Insulin Human REGular 300 Unit/3 mL Inj SUBQ SCH ×4 (03:55→20:29)
[2017-08-03] MEDS: Albumin 25% 25 GM in IV Premix 1 EACH IV SCH ×3 (04:03→17:55)
[2017-08-03 04:05] LABS: Mean Corpuscular Hemoglobin 24.8 pg (27.0-35.0); Mean Corpuscular Volume 78.7 fL (81-100); Platelet Count 204 bil/L (150-400)
[2017-08-03 04:20] LABS: INR 3.37 ratio
[2017-08-03 04:22] LABS: BASOPHILS % (AUTO) 0 % (0-3); EOSINOPHILS % (AUTO) 0 % (0-5); MONOCYTES % (AUTO) 5 % (4-12); NEUTROPHILS % (AUTO) 85 % (40-74)
[2017-08-03 04:30] LABS: Magnesium 1.8 mg/dL (1.6-2.6); Phosphorus 9.7 mg/dL (2.5-4.9)
--- NOTE | 2017-08-03 04:51 | ABG ---
DateTimeAnalyzed 04:44:00 -_ pH ____7.130 - 7.350 7.450 pCO2 ___36.8__ -mmHg 35.0 45.0 pO2 ___86.8__ -mmHg 69.0 116 HCO3- ___11.7__ -mmol/L 22.0 26.0 ABE __-15.9__ -mmol/L -2.0 2.0 tHb ____7.2__ -g/dL 12.0 18.0 O2Hb ___93.1__ -% COHb ____0.9__ -% 0.0 1.5 MetHb ____0.9__ -% 0.4 1.5 sO2 ___94.8__ -% 25.0 FIO2 ___45.0__ -% PRVC 700 - PEEP ____5.0__ -cmH2O Set_RR ___22.0__ -b/min Drawn By AF - Date/Time Notified____ 04:51:00 -_ Spontaneous_RR ___22.0__ -b/min Oxygen Device 1 VENTILATOR - Notified By AF - Notified Whom ___Dr. Olvera - B 762 -mmHg tO2 ____9.6__ -Vol% OrderingPhysicianInitials bak - Zoltan test N/A -
--- NOTE | 2017-08-03 06:20 | NUR ---
labs/abg's md aware of am abg and lab results, discussed pt's acid /base balance and meds, nimbex down to 0.5mcg/kg/min, pt compliant with vent, bis was 22 when first hooked up, fentanyl gtt now at 150mcg/hr and ativan at 2mg/hr, bis now upper 30's to low 40's, lasix gtt discontinued, 25ml uop, aware of norepi at 0.08mcg/kg/min to keep map in goal range,
[2017-08-03] MEDS: Norepineph 8,000 mCg/250 mL NS 8,000 MCG in IV Premix 1 EACH IV SCH ×2 (06:56→16:46)
[2017-08-03] MEDS: Famotidine Inj 20 MG in IV Premix 1 EACH IV SCH (09:31)
[2017-08-03] MEDS: Meropenem Inj 1,000 MG in 0.9% Sodium Chloride 100 ML IV SCH (09:32)
[2017-08-03] MEDS ORDERED: Phytonadione (Adult) 10 MG in Dextrose 5%-Pha MIX 50 ML IV ONE ×2 (09:45→21:30)
--- NOTE | 2017-08-03 10:22 | PROG NOTE ---
[address] [address] PROGRESS NOTE PATIENT: PO DELGADO : 1975 MR#: [id number] ADMIT: 07/29/2017 JOB ID: [id number] DATE: 08/03/2017 REASON FOR FOLLOWUP: Septic shock, ventilatory and renal failure in a super morbidly obese gentleman. INTERVAL HISTORY: Over the weekend, the patient has remained critically ill in the ICU. His renal function has gradually worsened and it is now approaching a critical situation where dialysis is urgently needed if he is to survive. His vasopressor requirements have diminished a bit though. He has required paralysis to adequately ventilate. This case discussed in great detail during ICU rounds with the entire team this morning. PHYSICAL EXAMINATION: Vital signs include temperature 37.0. His only fever during this whole hospital stay was 38.0 back on the . Pulse is currently 100-110, sinus rhythm. Blood pressure 126/43, but he is on norepinephrine at 0.08 mcg/kg a minute and that is based on ideal body weight. Recall that his ideal body weight is 77 kg, whereas his actual body weight is four times that at 312. He is currently ventilated fairly well on 45% and 5 of PEEP, both can be increased to 10. Examination of the head reveals there is now some early proptosis it would appear of his eyes bilaterally. There is no chemosis or conjunctivitis that I can see. Oral endotracheal tube, orogastric tube in good position. Right IJ in good position. He does not yet have a dialysis line, though efforts are underway to try and place one. His lungs reveal hypoventilation bilaterally. Cardiac tones extremely distant. Abdomen massively obese with large pannus which appears uninfected. He has a Reddy catheter, with reddish urine draining from it. His legs are now wrapped because he has developed weeping as he has become fluid overloaded over the weekend. Recall when he was first admitted, though, his legs appeared about at baseline which is to say massively oversized with venous stasis changes and some lichenification, but they were not warm nor were they apparently tender when he first came in, though now they are starting to weep bilaterally below the knees. LABORATORIES: Include white count 16,000, 85% segs. He has 1% metamyelocytes and he has a few nucleated red cells in his peripheral smear, indicative of his critically ill situation. His creatinine has jumped all the way to 9.07 today. BUN 79. LFTs normal. Albumin 2.4. His procalcitonin is 30, which I think is hard to interpret, though it was once as high as 93. Urinalysis done on the 7th had no white cells. Did have red cells. Urine Legionella negative. Streptozyme is constantly elevated in this patient and hard to interpret. Blood cultures are negative. MRSA screen negative. IMAGING: Includes today's chest x-ray which showed small lung hogan and was reviewed on rounds this morning. X-ray of the leg shows no free air, though these are very poor quality films given the patient's extraordinary dimensions. IMPRESSION: This is a critically ill, super morbidly obese gentleman, weighing now 312 kg. He is admitted with what appears to be septic shock and I would think this is streptococcal shock based on his prior history, though we do not have any culture evidence for that and his ASO titer is always elevated to around 400. His clinical course has been marked by ventilatory as well as renal failure which is actually, if anything, progressing. At this point, it is essential that he receive dialysis in the very near future. His antibiotics continue be very broad as we have no way to narrow our coverage and we think that this process started with a life-threatening perhaps necrotizing soft tissue infection. There is no way to image the patient beyond very poor-quality plain films of his legs to look for gross collections of air. Likewise, exploratory surgery of his lower extremities would seem to be fraught with risk and probably little benefit. At this point, I think our best course of action is to continue with these antibiotics for a 7-10 day course and reassess. RECOMMENDATIONS: 1. Will continue with daptomycin, meropenem and clindamycin in maximal doses. 2. This case discussed with Pulmonary as well as Renal attending and the entire team during ICU rounds.
[2017-08-03] MEDS ORDERED: Furosemide Inj 100 MG in 0.9% Sodium Chloride 90 ML IV SCH (10:25)
--- NOTE | 2017-08-03 10:32 | PCM.PNNEPH ---
Subjective Date of Service Aug 03, 2017 Subjective Remains in the critical condition. Intubated and sedated. Low dose Norepinephrine required. Oliguric despite being on lasix gtt. Worsening kidney function, potassium and metabolic acidosis. Exam Vital Signs Vital Sign - Last Date Time Temp Pulse Resp B/P Pulse Ox O2 Delivery O2 Flow Rate FiO2 08/03/17 09:32 111 126/43 94 45 08/03/17 04:00 37.0 22 Mechanical Ventilator 07/30/17 09:28 3.00 Intake and Output 08/02/17 08/02/17 08/03/17 Cumulative From/Thru 15:00 23:00 07:00 07/29/17 08:35 - 08/03/17 06:12 Intake Total 1984 ml 1052 ml 74434 ml Output Total 308 ml 75 ml 3998 ml Balance 1676 ml 977 ml 13007 ml Intake Oral 1303 ml IV Total 1984 ml 1052 ml 47581 ml Output Urine Total 58 ml 25 ml 1148 ml Gastric Drainage Total 250 ml 50 ml 2850 ml Other 0 ml # Voids 1 # Bowel Movements 0 0 0 Exam GENERAL: patient is intubated sedated, super obese. HEENT: Head is normocephalic and atraumatic. NECK: Right triple-lumen in place, unable to access JVD. LUNGS: ET tube in place, coarse crackles B/L. HEART: Normal S1/S2, Regular rate and rhythm, distant heart sounds ABDOMEN: Soft, obese. Decreased bowel sounds. EXTREMITIES: Chronic skin changes, lymphedema, cobblestone appearance. Lab and Diagnostics Result Diagram: 08/03/17 0355 08/03/17 0355 X-Rays, CTs and MRIs X-RAY CHEST ONE VIEW, PORTABLE IMPRESSION: 1. Borderline prominence of the heart with mild to moderate vascular congestion. 2. Left infrahilar density probably represents atelectasis. Please correlate clinically to exclude pneumonia. Approved by: Arie Blake M.D. on 07/29/2017 at 8:53 X-RAY CHEST ONE VIEW, PORTABLE IMPRESSION: No change is seen in the chest x-ray since the film of 0525 hrs. Approved by: Joseph Miller M.D. on 08/02/2017 at 15:15 Cardiac Echo Impressions ECHO on 07/30/17 Interpretation Summary Normal sinus rhythm. Normal LV size and wall thickness. There is septal dyskinesis. otherwise normal wall motion. EF is 60-65%. There is moderate RV dilation with normal RV function. Otherwise normal chamber sizes. Aortic sclerosis without stenosis. Otherwise no significant valvular abnormalities. Estimated PA systolic pressure is 71 mm Hg assuming RA pressure of 20 mm Hg. Compared to prior study 11/06/2016, mild RV dilation is new. Elevated PA systolic pressure is new. Dyskinetic septum is new. Findings are concerning for PE. Additional Diagnostics US VEINOUS LEG DUPLEX UNILATERAL, RIGHT IMPRESSION: Limited examination secondary to body habitus. The left common femoral vein not visualized and cannot be evaluated. Deep vein thrombosis involving the left common femoral vein cannot be excluded. No evidence of deep vein thrombosis involving the left superficial femoral vein or popliteal vein. Approved by: Ary Trejo MD, PhD on 07/29/2017 at 12:29 ABG pH ____7.231 - 7.350 7.450 pCO2 ___48.7__ -mmHg 35.0 45.0 pO2 ___68.5__ -mmHg 69.0 116 HCO3- ___19.7__ -mmol/L 22.0 26.0 Liter_Flow ____4.0__ -L/min Oxygen Device 1 __CANNULA - Plan Impression 1. Acute kidney injury superimposed chronic glomerulonephritis - Secondary to acute tubular necrosis - Worsening kidney function, potassium and metabolic acidosis. 2. 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 3. Acute on chronic hypoxemic hypercarbic respiratory failure. 4. Anion gap metabolic acidosis. 5. Super obese. 6. Suspected pulmonary embolism. Plan: Continue 25% albumin 100 mL every 8 hours. Increase Lasix drip [address] Alatorre kindly offers placing hemodialysis catheter in this challenging case. Will need to hold heparin gtt and target INR to be < 1.5 prior to the procedure. HD to be set up if access available. Damián Cabrera MD Aug 03, 2017 10:32
[2017-08-03] MEDS: DAPTOmycin Inj 1,000 MG in 0.9% Sodium Chloride 50 ML IV SCH (10:50)
[2017-08-03] MEDS ORDERED: Sodium Acetate Inj 150 MEQ in Dextrose 5% 1,000 ML IV PRN (11:20)
[2017-08-03] MEDS ORDERED: Dextrose 10% 250 ML IV PRN (11:25)
--- NOTE | 2017-08-03 11:53 | NUR ---
NUTRITION FOLLOW-UP: ASSESS: 42 YO male presented to the ED with the chief complaint of new onset right lower leg pain. Pt is currently intubated and sedated. Nimbex was required to be started. Nephrology is following for worsening kidney function. Will likely require start of HD soon. Pt has been NPO x5 days. Received verbal to start trophic TF today. Due to kidney function, fluid status and pt being on nimbex, at this time TF is to stay at trophic. PMHx: Class III obesity, recurrent RLE cellulitis, severe lymphedema of RLE, venous insufficiency of the LE, HTN, fibromyalgic / chronic pain syndrome requiring narcotics, arthritis, back pain, depression, anxiety, ENEDINA, RA, glomerulonephritis, prediabetes type II. DIET: NPO. LABS: Reviewed. Na 133, K 5.4, CO2 11, Bun 79, Registered Pharmacist 9.07, Glu 110, Ca 8.0, phos 9.7, alb 2.5 MEDICATIONS: Reviewed. Insulin, norepi, fentanyl, ativan, albumin, nimbex GI symptoms / stool: 0 BM Skin Integrity: Wound care following ANTHROPOMETRICS: Current Wt: 312 kg BMI: 93.4kg/m2. Admit weight: 307 kg, IBW: 80.91 kg (379% IBW) ESTIMATED NEEDS (CLASS III OBESITY, [place], VENT): Calories: 8340-5041 kcal/day (22-25 kcal / kg IBW) Protein: 120-145g protein/day (1.5-1.8g/ kg IBW) NUTRITION DIAGNOSIS: 1) Inadequate oral intake related to hemodynamic instability, as evidenced by NPO / vent status.--PERSISTS INTERVENTION: 1) Received verbal to start trophic TF. Recommend start TF of Nepro @ 10ml/hr. 2) Once TF is tolerated and okay per MD to advance TF, recommend advance by 10ml q 6 hrs until reach goal rate of 50ml/hr to provide 1980kcal and 89g pro (100% kcal and 74% pro needs) 3) Once at goal rate, recommend at 1 packet of prosource TID to better meet protein needs. MONITOR/EVALUATE:NPO / vent status, TF start/mansi, GI, labs, weight, nutrition status. Follow up per high nutrition risk guidelines. Addendum: 08/04/17 at [address] TF unable to be started 08/03. Plan for possible start today 08/04. RN aware. Pt has been NPO x6 days.
--- NOTE | 2017-08-03 12:37 | PCM.PNMED ---
Subjective Date of Service Aug 03, 2017 Subjective Pulmonary/critical care progress note Du Flannery is a 42 year old male with past medical history significant for BMI of 93, recurrent lower extremity cellulitis in the setting of bilateral lymphedema, and glomerulonephritis who presented with right lower extremity pain and shortness of breath. Patient quickly worsened developing septic shock and respiratory failure requiring intubation and pressors. Patient was diagnosed with a probable pulmonary embolism by echocardiogram as his obesity includes him from standard imaging studies. Subsequent to these issues his kidneys have continued to decline. Interval history Yesterday patient became dyssynchronous with vent. He was started on index. BUN and creatinine have worsened overnight and he is currently hyperkalemic. Plan to place dialysis catheter this afternoon after 2 units of FFP given. Dialysis to follow with successful. Exam Vital Signs Vital Sign - Last Date Time Temp Pulse Resp B/P Pulse Ox O2 Delivery O2 Flow Rate FiO2 08/03/17 09:32 111 126/43 94 45 08/03/17 08:30 Ventilator 08/03/17 08:30 37.2 22 07/30/17 09:28 3.00 Intake and Output 08/02/17 08/02/17 08/03/17 Cumulative From/Thru 15:00 23:00 07:00 07/29/17 08:35 - 08/03/17 06:12 Intake Total 1984 ml 1052 ml 51673 ml Output Total 308 ml 75 ml 3998 ml Balance 1676 ml 977 ml 32384 ml Intake Oral 1303 ml IV Total 1984 ml 1052 ml 96664 ml Output Urine Total 58 ml 25 ml 1148 ml Gastric Drainage Total 250 ml 50 ml 2850 ml Other 0 ml # Voids 1 # Bowel Movements 0 0 0 Exam General: Morbidly obese male intubated and sedated, lying in over sized hospital bed Eyes: Pupils equal round and reactive to light, anicteric sclera, noninjected conjunctiva HENT: Normocephalic atraumatic, ET tube in place Neck: Supple, trachea midline, thick neck without thyromegaly or JVD, right IJ in place without fluctuance or erythema in surrounding subcutaneous tissue Cardiovascular: Very distant heart sounds noted however Regular rate and regular rhythm, S1-S2 present, without murmurs rubs or gallops noted Lungs: Distant lung sounds noted however Clear to auscultation bilaterally without wheezing rales or rhonchi Abdomen: Soft, induration and erythema as well as stippling noted in lower abdomen consistent with chronic lymphedema, nondistended, tympanic to percussion , normal active bowel sounds, unable to assess organomegaly due to body habitus Extremities: Significant lymphedema noted in lower extremities bilaterally worse than the right leg than left with induration and erythema as well as skin stippling, gross tenderness to palpation bilaterally right worse than left, no cyanosis clubbing or noted, notably decreased pulses bilaterally at dorsalis pedis and posterior tibialis compared to radial in upper extremities bilaterally : Reddy catheter in place Skin: Significant noted induration with erythema and an plasma exudate drainage from bilateral lower extremities below knee Neuro: Unable to assess given intubated and sedated Psych: Unable to assess given intubated and sedated Lab and Diagnostics Result Diagram: 08/03/17 0355 08/03/17 0355 X-Rays, CTs and MRIs X-RAY CHEST ONE VIEW, PORTABLE IMPRESSION: 1. Borderline prominence of the heart with mild to moderate vascular congestion. 2. Left infrahilar density probably represents atelectasis. Please correlate clinically to exclude pneumonia. Approved by: Arie Blake M.D. on 07/29/2017 at 8:53 X-RAY CHEST ONE VIEW, PORTABLE IMPRESSION: No change is seen in the chest x-ray since the film of 0525 hrs. Approved by: Joseph Miller M.D. on 08/02/2017 at 15:15 Cardiac Echo Impressions ECHO on 07/30/17 Interpretation Summary Normal sinus rhythm. Normal LV size and wall thickness. There is septal dyskinesis. otherwise normal wall motion. EF is 60-65%. There is moderate RV dilation with normal RV function. Otherwise normal chamber sizes. Aortic sclerosis without stenosis. Otherwise no significant valvular abnormalities. Estimated PA systolic pressure is 71 mm Hg assuming RA pressure of 20 mm Hg. Compared to prior study 11/06/2016, mild RV dilation is new. Elevated PA systolic pressure is new. Dyskinetic septum is new. Findings are concerning for PE. Additional Diagnostics US VEINOUS LEG DUPLEX UNILATERAL, RIGHT IMPRESSION: Limited examination secondary to body habitus. The left common femoral vein not visualized and cannot be evaluated. Deep vein thrombosis involving the left common femoral vein cannot be excluded. No evidence of deep vein thrombosis involving the left superficial femoral vein or popliteal vein. Approved by: Ary Trejo MD, PhD on 07/29/2017 at 12:29 ABG pH ____7.231 - 7.350 7.450 pCO2 ___48.7__ -mmHg 35.0 45.0 pO2 ___68.5__ -mmHg 69.0 116 HCO3- ___19.7__ -mmol/L 22.0 26.0 Liter_Flow ____4.0__ -L/min Oxygen Device 1 __CANNULA - Assessment & Plan Du Flannery is a 42 year old male with past medical history significant for BMI of 93, recurrent lower extremity cellulitis in the setting of bilateral lymphedema, and glomerulonephritis who presented with right lower extremity pain and shortness of breath. Patient quickly worsened developing septic shock and respiratory failure requiring intubation and pressors. Patient was diagnosed with a probable pulmonary embolism by echocardiogram as his obesity includes him from standard imaging studies. Subsequent to these issues his kidneys have continued to decline and at this time dialysis is necessary. Plans were made to place dialysis catheter today after 2 units of FFP. Respiratory Acute hypoxic hypercapnic respiratory failure in the setting of morbid obesity and obstructive sleep apnea. - Patient on admission complaining of shortness of breath. Patient was trialed on BiPAP but became progressively somnolent and was intubated approximately 24 hours after admission. - Vent settings FiO2 .45 PEEP 5 RR 22 TV 700. - ABG 08/03/2017: 7.13/37/86.8/11.7. - Patient dyssynchronous with the vent yesterday and was placed on Nimbex. Possible pulmonary emboli. - Due to patient's morbid obesity unable to obtain a CT angiogram, VQ study, or lower extremity Doppler to evaluate for DVTs. Diagnosis of pulmonary emboli is based on echo findings and patient's symptoms. - Patient was started on a heparin drip but this has been discontinued due to both concerns of blood loss anemia along with the plan to place a dialysis catheter today. Obstructive Sleep Apnea. - Patient currently intubated. Infectious Acute on chronic cellulitis of right lower extremity in the setting of severe lymphedema. - Cellulitis likely the cause of his sepsis likely streptococcal toxic shock. - Patient has a persistently elevated streptozyme. - Patient 24 hours after admission had a significant elevation in white blood cell count with left shift. Patient at this time only has 4 bands but no blood cell continues to be elevated at 16.4. - Blood cultures are negative. - MRSA nasal screen negative. - Continue with ID recommendations of clindamycin, daptomycin, meropenem. Cardiorenal Severe sepsis with septic shock secondary to right lower extremity cellulitis. - Diagnosis made based on WBC 21.3, 32% bands, pro-calcitonin 85.02, heart rate 110, and MAPs in the 50s. - Diastolic blood pressures remain in the 40s. Although MAPs have improved to 65-70. - Patient initially received fluids but due to patient's severe renal failure fluids have been held except for what he is receiving with medications. - Norepinephrine is currently 0.08 much improved from maximum of 0.5. Acute kidney injury on chronic kidney disease with noted chronic glomerulonephritis. - Patient's renal function has continued to decline over his last 8 hospitalizations since December. He has had prior outpatient follow-up with nephrology. - On admission creatinine 4.54. Today creatinine is 9.07 and BUN is 79. - Patient currently anuric. - Patient today has developed hyperkalemia with potassium of 5.4. - Plan to place dialysis catheter today. If successful dialysis to follow this afternoon. - Dr. Hernandez, nephrology, following. Appreciate time and recommendations. Hematologic Chronic normocytic anemia. - Hemoglobin 7.8 and hematocrit 24.8. Stable from yesterday. - There was concern yesterday of acute blood loss but this is likely secondary to hemoconcentration although hard to assess due the patient's morbid obesity. - We will continue to monitor. - Heparin drip stopped and 2 units FFP given as dialysis catheter is planned to be placed this afternoon. Metabolic Hyperkalemia. - Secondary to renal failure. - Plan as above. Alimentary Trophic tube feeds started 08/03/2017. Neuro Currently sedated with lorazepam and fentanyl gtt. Paralyzed with Nimbex. DVT prophylaxis: Heparin drip discontinued given worsening anemia and placement of dialysis catheter today. GI prophylaxis: Famotidine CODE STATUS full code. GI Prophylaxis: Not indicated VTE Prophylaxis: Other (heparin drip) Resuscitation Status: CPR: Attempt Resuscitation Attending Statement I have seen and examined this patient with the resident physician. Vital signs , labs, imaging have been reviewed. I agree with the assessment and plan above. Please refer to my separately dictated progress note for any modifications to above. Elizabeth Alatorre M.D. Pulmonary and Critical Care medicine Pager [phone] YARED LAGUNA DO Aug 03, 2017 12:36 Elizabeth Alatorre MD Aug 04, 2017 16:05
[2017-08-03] MEDS: 0.9% Sodium Chloride 250 ML IV SCH (12:45)
[2017-08-03] MEDS: Cisatracurium Inj 200,000 MCG in 0.9% Sodium Chloride-Pha MIX 100 ML IV SCH (12:47)
--- NOTE | 2017-08-03 13:35 | NUR ---
Social Work: Initial Assessment/Multidisciplinary Rounds D: Per EMR review, pt is a 42 year old male admitted for dyspnea, tachycardia. Pt is [facility] with Medicare; pt has no LTC or [facility]. PCP is Supa Alegria DO. NOK is Deb Flannery, , . Advanced directives not completed- pt not appropriate to receive information at this time. Readmit score is high, 7/8. Pt discussed in Multidisciplinary rounds. Pt remains in CCU, vented and sedated. Timeline for extubation and discharge unknown at this time. INTERNET MARKETING INTERN met with the patient's and family at bedside. Social work/dcp role explained, contact information and discharge planning checklist provided. See initial assessment. Pt lives with his in [place] with 3 steps to enter their home. Pt uses an electric scooter at baseline. Pt has never had HH or skilled rehab. declines any current needs and is receptive to working with INTERNET MARKETING INTERN once pt's discharge needs become more apparent. 's only request at this time is for information about applying for [employer]. Pt had this in the past but does not currently have it. INTERNET MARKETING INTERN provided her with a copy of the [employer] application along with information about applying for state benefits and the [facility] care/financial assistance application. A: Pt who is currently in CCU, vented and sedated. P: Evolving; pt's discharge needs unknown. INTERNET MARKETING INTERN to continue to follow to assess for discharge needs as clinical status progresses. SAÚL Verde Addendum: 08/03/17 at 1343 by CHRISS HANSEN Amended: Links added.
--- NOTE | 2017-08-03 13:38 | PCM.PNMED ---
Subjective Date of Service Aug 03, 2017 Subjective Du Flannery is a 42 year old male recurrent leg cellulitis, severe bilateral lymphedema, hypertension, chronic pain, obstructive sleep apnea who presents to [facility] emergency department with increased redness on left leg and shortness of breath. Patient has been transferred to the ICU and was intubated by the anesthesiologist and placed on volume ventilation. A right IJ line was placed in addition to a radial arterial line. Antibiotics were started per infectious disease. Acute on chronic kidney disease is worsening, likely as a result of acute tubular necrosis secondary to sepsis and septic shock. Patient was found to have evidence of possible pulmonary embolism from echocardiogram and was on heparin drip but this has been discontinued. Overnight, patient was experiencing ventilator dyssynchrony and was started on the nimbex. Norepi was decreased to 0.08mcg/kg/min. Today, patient's renal function has worsened. BUN 79 and Cr 9.07. In addition, his potassium has increased to 5.4. The plan for today is to attempt to place a dialysis catheter and dialyze the patient. Patient remains on norepi drip. Exam Vital Signs Vital Sign - Last Date Time Temp Pulse Resp B/P Pulse Ox O2 Delivery O2 Flow Rate FiO2 08/03/17 04:55 111 118/37 94 45 08/03/17 04:00 37.0 22 Mechanical Ventilator 07/30/17 09:28 3.00 Intake and Output 08/02/17 08/02/17 08/03/17 Cumulative From/Thru 15:00 23:00 07:00 07/29/17 08:35 - 08/03/17 06:12 Intake Total 1984 ml 1052 ml 78542 ml Output Total 308 ml 75 ml 3998 ml Balance 1676 ml 977 ml 16035 ml Intake Oral 1303 ml IV Total 1984 ml 1052 ml 43577 ml Output Urine Total 58 ml 25 ml 1148 ml Gastric Drainage Total 250 ml 50 ml 2850 ml Other 0 ml # Voids 1 # Bowel Movements 0 0 0 Exam General: Patient is a morbidly obese male, lying with head propped upright on bed, intubated on ventilator HEENT: head normocephalic and atraumatic, PERRLA, EOMI, no scleral icterus, injected conjunctiva Neck: neck supple, non-tender, no lymphadenopathy, trachea midline, no JVD CV: regular rate and rhythm but heart sounds are very distant, radial pulses are palpable bilaterally, no murmurs Lungs: lung sounds are also distant and appears to be decreased bilaterally Abdomen: pannus is massive, evidence of small laceration on left side of abdomen , covered by panus, normoactive bowel sounds, soft, and very tympanic to percussion Skin:warm and dry Extremities: significant lymphedema with tree-bark appearance of lower extremities bilaterally, Right leg is bigger in size compared to left leg, evident erythema and induration noted Neuro: unable to assess as patient is very somnolent Psych:unable to assess as patient is very somnolent : Reddy catheter IVs and Medications Medications Reviewed: Medications were reviewed in detail Lab and Diagnostics Result Diagram: 08/03/17 0355 08/03/17 0355 X-Rays, CTs and MRIs X-RAY CHEST ONE VIEW, PORTABLE IMPRESSION: 1. Borderline prominence of the heart with mild to moderate vascular congestion. 2. Left infrahilar density probably represents atelectasis. Please correlate clinically to exclude pneumonia. Approved by: Arie Blake M.D. on 07/29/2017 at 8:53 X-RAY CHEST ONE VIEW, PORTABLE IMPRESSION: No change is seen in the chest x-ray since the film of 0525 hrs. Approved by: Joseph Miller M.D. on 08/02/2017 at 15:15 Cardiac Echo Impressions ECHO on 07/30/17 Interpretation Summary Normal sinus rhythm. Normal LV size and wall thickness. There is septal dyskinesis. otherwise normal wall motion. EF is 60-65%. There is moderate RV dilation with normal RV function. Otherwise normal chamber sizes. Aortic sclerosis without stenosis. Otherwise no significant valvular abnormalities. Estimated PA systolic pressure is 71 mm Hg assuming RA pressure of 20 mm Hg. Compared to prior study 11/06/2016, mild RV dilation is new. Elevated PA systolic pressure is new. Dyskinetic septum is new. Findings are concerning for PE. Additional Diagnostics US VEINOUS LEG DUPLEX UNILATERAL, RIGHT IMPRESSION: Limited examination secondary to body habitus. The left common femoral vein not visualized and cannot be evaluated. Deep vein thrombosis involving the left common femoral vein cannot be excluded. No evidence of deep vein thrombosis involving the left superficial femoral vein or popliteal vein. Approved by: Ary Trejo MD, PhD on 07/29/2017 at 12:29 ABG pH ____7.231 - 7.350 7.450 pCO2 ___48.7__ -mmHg 35.0 45.0 pO2 ___68.5__ -mmHg 69.0 116 HCO3- ___19.7__ -mmol/L 22.0 26.0 Liter_Flow ____4.0__ -L/min Oxygen Device 1 __CANNULA - Assessment & Plan Du Flannery is a 42 year old male recurrent leg cellulitis, severe bilateral lymphedema, hypertension, chronic pain, obstructive sleep apnea who presents to [facility] emergency department with increased redness on left leg and shortness of breath. Patient has been transferred to the ICU and was intubated by the anesthesiologist and placed on volume ventilation. A right IJ line was placed in addition to a radial arterial line. Antibiotics were started per infectious disease. Acute on chronic kidney disease is worsening, likely as a result of acute tubular necrosis secondary to sepsis and septic shock. Patient was found to have evidence of possible pulmonary embolism from echocardiogram and was on heparin drip but this has been discontinued. Given worsening renal function and hyperkalemia, the goal for today is to potentially dialyze the patient. Patient remains on norepi drip for pressure support and trophic tube feeds have been initiated today. Severe Sepsis with Septic Shock -Initially, WBC 21.3, 32% bands, pro-calcitonin and 85.02 -Today, WBC 16.4 with 4% bands, Procalcitonin decreased to 30.3 -Infectious Disease, Dr. 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 possible streptococcal toxic shock syndrome -Per ID, continue with maximal dose daptomycin, meropenem and clindamycin -Continue to monitor CBC, procalcitonin -Patient requires norepinephrine to maintain this pressures,currently unable to titrate norepinephrine off, -nephrology initiated Lasix drip given tenuous blood pressures and significant volume overload after acute decompensation requiring IV fluids Acute hypoxic hypercapnic respiratory failure -with severe metabolic and respiratory acidosis - Possibly combined effects of obesity hypoventilation syndrome and pulmonary emboli - Noted pH of 7.23 with PCO2 of 48.7 and PO2 of 68.5 on 4 L nasal cannula in the ED - Initially, RT placed BiPAP as necessary with oxygen goals between 88 and 92% given possibility of chronic CO2 retention but patient continued to decompensate and was intubated -Patient intubated on volume ventilation -Per ICU team, try to get the patient more upright in order to better ventilate the bases. -ICU team adjusting vent settings -Today, ABG 08/03/2017: 7.13/37/86.8/11.7 -Patient was dyssynchronous with vent and started on Nimbex -Patient received Ativan and Fentanyl, but try to avoid sedation as much as possible Possible Acute pulmonary emboli -as evidenced by ECHO findings - Patient has lower extremity edema making clinical signs of DVT as well as LE US imaging difficult, however is notably sedentary lifestyle with d-dimer of 1.91 and a heart rate greater than 100, with review of records indicated that the patient is not typically tachycardic at baseline, giving him a well's score of 4.5 with a moderate risk of pulmonary emboli approximately 16.2% - Given patient's body habitus and poor kidney function no ability to perform CT PE or VQ scan - Warfarin and heparin drip discontinued per telegraphic typewriter installer Dr. 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 Right renal cortical thickness is 1.7 cm; left renal cortical thickness is 1.6 cm. Renal cortical echotexture is normal. - Chronic kidney disease with currently uncertain staging given with baseline creatinine approximately 1.1-1.3 in December 2016 with consistent increases in creatinine every hospitalization since December to current admission - Creatinine of 4.54 admission, worse today with BUN and creatinine were 54 and 6.7 -His C3 and C4 are both normal thus excluding acute glomerulonephritis - Fractional excretion of sodium calculated at 0.6% consistent with prerenal causes for worsening kidney injury - Nephrology, Dr. Hernandez to initiate a Lasix drip with continued albumin infusion scheduled, this case was discussed extensively with nephrology given the guarded prognosis -Today 08/03/17 BUN 79, Cr 9.07 and Potassium 5.4. Given worsening renal function and anuria, the plan is to place a dialysis catheter and dialyze patient. Acute on chronic cellulitis of right lower extremity - poor circulation and Lymphedema are contributing factors to recurrent infections. - White blood cell count of 4.4 notably lower than prior admissions possibly atypically consistent with infectious etiology, pro-calcitonin of 0.37 typically considered indeterminate - Pt last hospitalized on 06/11/2017 for cellulitis, left AMA, at that time ID was consulted, recommended ceftriaxone while inpatient and cefdinir 300 once per day as outpatient for minimum of 10 days, with clindamycin 300 mg p.o. b.i.d. indefinitely as prophylaxis. - Blood Culture ordered and pending - MRSA negative - Continue with ID recommendations of clindamycin, daptomycin, meropenem Acute worsening of Chronic normocytic anemia - Hemoglobin of 8.8 at admission with MCV of 83 - Chronic anemia is likely secondary to chronic kidney disease with severe glomerulonephritis blood loss as well as poor erythropoietin production - Hemoglobin continues to trend down to hemoglobin in the mid sevens, currently uncertain if this is due to heparin drip and warfarin anticoagulation resulting in a spontaneous bleed or secondary to hemodilution given significant maintenance fluids resulting in 18 L net positive - Warfarin and heparin drip discontinued per telegraphic typewriter installer Dr. Mckeon recommendations which was discussed extensively given the patient's poor prognosis with pulmonary emboli not on anticoagulation currently intubated and sedated -2 units FFP is given today as patient will likely get a dialysis catheter placed today - Monitor Hypertension, chronic, not ongoing -Patient is currently normotensive - Monitor and hold home medication until more normotensive - Consider initiating alternative blood pressure medication to amlodipine considering chronic lower extremity edema - Avoid Poncho inhibitors given kidney disease with acute kidney injury - Consider initiating labetalol 100 mg by mouth twice a day as necessary Depression, chronic - continue Sertraline 150 mg daily when able Chronic severe morbid Obesity - continue pulse oximetry - Pt does not use CPAP at home -Patient's BMI is 90.9 Chronic pain syndrome - Patient generally receives ativan for anxiety continue for sedation reasons while intubated -Hold home dose of oxycodone while intubated Obstructive Sleep Apnea, chronic - Patient currently intubated Chronic prediabetic [id number] - A1c of 6.3 in April 2017 - A1c on this admission 5.8 DVT prophylaxis: Heparin drip discontinued given worsening anemia GI prophylaxis: Not indicated CODE STATUS is full. Patient is likely to remain inpatient for a prolonged period of time giving current state of health. Prognosis is tenuous given the primary diagnosis. Pain Evaluation: Adequate Pain Control GI Prophylaxis: Not indicated VTE Prophylaxis: Other (heparin drip discontinued ) Resuscitation Status: CPR: Attempt Resuscitation Attending Statement The patient was seen and examined together with Dr. Merritt on 08/03/2017 and I agree with the history, exam and plan as outlined in the note above. . Eusebia Merritt DO Aug 03, 2017 06:33 Rod Grimaldo MD Aug 07, 2017 07:30
--- NOTE | 2017-08-03 13:52 | NUR ---
Inpatient Wound Nurse Patient was seen on 07/31/17 for Pressure Injury Prevention protocol and weeping of BLE. A second order was entered and patient is seen again today. Family again declines assessment of posterior, states that he had no wound prior to admission and since he cannot reach posterior, he is not likely to have wounds where he cannot reach. CWON RN explained risks of pressure injury, contribution of body moisture to skin breakdown, and overall increased fragility. Lateral LLE area of weeping noted, unchanged from last week. Small amount of drainage noted in removed dressing. Area was cleansed, blotted dry, then covered with bordered Mepilex foam dressing with silicone facing. This dressing may be changed PRN. RLE knees to ankle vastly saturated and macerated. Epidermis is so wet it is pulling off in chunks, consistency of wet sponge. Multiple areas where skin has split and fallen away are noted on lateral and medial places, exposing beefy red tissue. Posterior calf is spongy, mushy, pudding consistency. LE was cleansed with NS and blotted dry. Three complete Mepilex sheet foams were placed at wettest areas, then covered with ABDs, blue line AWAY from body. Blue line is not the absorbent side of ABD and so blue line must always be placed AWAY from body if its intended function is to absorb. Two Kerlix rolls were used to secure Mepilex and ABDs, then limb was placed on pillow covered with two green chucks. Nursing staff may change this dressing PRN, expect at minimum BID. CWON is available to assist with posterior assessment for pressure injury, although, at this time, family continues to decline.
--- NOTE | 2017-08-03 14:27 | DRSVH ---
PROCEDURE: X-RAY CHEST ONE VIEW, PORTABLE ([id number]) INDICATIONS: respiratory failure, super morbid obesity TECHNIQUE: One view of the chest was acquired. COMPARISON: [facility], CR, XR CHEST 1VW (PORTABLE), 08/01/2017, 5:53. [facility], CR, XR CHEST 1VW (PORTABLE), 08/02/2017, 14:36. FINDINGS: Surgical changes and devices: Stable position of ETT, nasogastric tube and right IJ CVL. Lungs and pleura: Chronic elevation right hemidiaphragm. Diffuse, widespread bilateral pulmonary inte rstitial and air space opacities are present similar to prior examination and slightly decreased. Sm all bibasilar pleural effusions. Mediastinum: Mediastinal contours appear normal. Heart size is enlarged. Bones and chest wall: No suspicious bony lesions. Overlying soft tissues appear unremarkable. IMPRESSION: 1. Persistent pulmonary edema and/or diffuse bilateral pneumonia minimally decreased from prior exami nation. 2. Small basilar pleural effusions and persistent cardiomegaly. Dictated by: Kody Maria [facility] Interpreted: Yudi Waters MD on 08/03/2017 at 9:49 Approved by: Yudi Waters M.D. on 08/03/2017 at 14:25
[2017-08-03 14:57] LABS: INR 3.19 ratio
[2017-08-03] MEDS ORDERED: Heparin 10,000 Unit/1,000 mL NS Premix IV ONE (14:58)
[2017-08-03] MEDS ORDERED: Heparin 1,000 Unit/mL 10 mL Inj ONE (14:58)
[2017-08-03] MEDS ORDERED: Phytonadione (Adult) 5 MG in Dextrose 5%-Pha MIX 50 ML IV ONE (15:25)
--- NOTE | 2017-08-03 15:54 | ABG ---
DateTimeAnalyzed 15:47:00 -_ pH ____7.138 - 7.350 7.450 pCO2 ___37.2__ -mmHg 35.0 45.0 pO2 ___93.3__ -mmHg 69.0 116 HCO3- ___12.1__ -mmol/L 22.0 26.0 ABE __-15.4__ -mmol/L -2.0 2.0 tHb ____6.9__ -g/dL 12.0 18.0 O2Hb ___94.2__ -% COHb ____1.0__ -% 0.0 1.5 MetHb ____0.9__ -% 0.4 1.5 sO2 ___96.0__ -% 25.0 FIO2 ___45.0__ -% PRVC 700 - PEEP ___10.0__ -cmH2O Set_RR ___22.0__ -b/min Vt __711.0__ -L Drawn By jmw - Date/Time Notified____ 15:53:00 -_ Spontaneous_RR ___22.0__ -b/min Oxygen Device 1 VENTILATOR - Notified By jmw - Notified Whom DR PERIMI - B 759 -mmHg tO2 ____9.4__ -Vol% Zoltan test N/A -
[2017-08-03] MEDS: Furosemide Inj 100 MG in 0.9% Sodium Chloride 90 ML IVPUSH SCH ×2 (16:02→22:13)
--- NOTE | 2017-08-03 17:16 | PROG NOTE ---
[address] [address] PROGRESS NOTE PATIENT: PO DELGADO : 1975 MR#: [id number] ADMIT: 07/29/2017 JOB ID: [id number] DATE: 08/03/2017 PULMONARY CRITICAL CARE PROGRESS NOTE: The patient is a 42-year-old man with super morbid obesity, BMI of 93, admitted with septic shock, right lower extremity cellulitis, and acute on chronic renal failure. The patient was seen and evaluated with resident physician, Priyanka Wallace, please refer to her separate detailed note for additional information. INTERVAL HISTORY: He remains on pressors at medium dose. He remains on paralytics as well. He continues to be anuric with worsening metabolic acidosis. REVIEW OF SYSTEMS: Could not be obtained since he is intubated. PHYSICAL EXAMINATION: Vital signs reviewed. He is on 45% FiO2 and 5 cm of PEEP which was increased to 10 cm. General: Intubated, sedated and paralyzed, unresponsive. Super morbid obese gentleman. Chest: Clear to auscultation. Bilateral lower extremities evaluated. Left lower extremity with hyperpigmentation from stasis dermatitis. Right lower extremity is wrapped in bandages. LABORATORIES: Reviewed. WBC is 16.4. Chemistry also reviewed. Creatinine is up to 9, bicarb 11, potassium 5.4, Procalcitonin is down to 30 from peak of 93 two days ago. Cultures: No new growth. IMAGING: Chest x-ray shows bibasilar atelectasis/effusions. Arterial blood gas from this morning shows pH 7.13, pCO2 36, pO2 of 86, bicarb of 11. ASSESSMENT/RECOMMENDATIONS: 1. Septic shock. 2. Right lower extremity cellulitis. 3. Acute hypoxic hypercarbic respiratory failure. 4. Acute on chronic renal failure. 5. Super morbid obesity with body mass index of 93, weight 660 pounds. This 42-year-old man is admitted with septic shock, respiratory failure, and now renal failure. He is on moderate dose norepinephrine at 0.08 mcg and sedated currently with propofol, fentanyl and also on paralytic Nimbex. He remains anuric with worsening metabolic acidosis and hyperkalemia and needs hemodialysis. Because of his weight, he cannot travel down to Interventional Radiology for the catheter. We do have a long enough catheter that should be able to reach his distal SVC through the left IJ. Either Dr. Waters or myself will attempt this procedure this afternoon. I did speak to the family at length and specifically his and she agreed with proceeding. She does understand that if we are unsuccessful, he may need transfer to different higher level of care facility in the city. We are reversing his INR of 3.3 with FFP 2 units now and will plan on doing the procedure after that and hopefully initiating hemodialysis tonight. n the meantime, we are going to start him on a sodium acetate drip to correct his metabolic acidosis because this will certainly help with his hemodynamics as well. With regards to antibiotics, we have him on daptomycin, meropenem and clindamycin per Dr. Eddy for suspected strep toxic shock syndrome. His INR is 3.3 from recent warfarin. His heparin drip was stopped because of anemia and dropping hemoglobin, although there is no obvious evidence of bleeding. He is on appropriate GI prophylaxis. He is a FULL CODE and the family was updated at the bedside. CRITICAL CARE TIME: 70 minutes. PAULETTE
--- NOTE | 2017-08-03 17:46 | NUR ---
spiritual care: follow up family prayer/ritual at bedside as family gathers, pt to receive procedure for dialysis equipment. family emotional as pt's condition continues to be grave.
--- NOTE | 2017-08-03 18:28 | NUR ---
P: Respiratory Distress I: Pt sedated with ativan 2mg/hr and fentanyl 150mcqs/hr. Nimbex 0.5 mcqs and Norepinephrine 0.1mcqs. Pt turned to take saturated sheet out and pt BP dropped to 70/40 and norepinephrine gtt increased until pt's BP stabilized. Pt's desat 89-90%. Asynchronous respirations and a bolus of nimbex was needed. Pt more hemodynamically stable now but pt did not tolerate the movement well. FiO2 60% and peep increased to 12 to keep sats up. Right leg oozing large amount of yellow fluid. Reddy had 50cc output. OGT 50cc of output. ST. Sodium Acetate infusing. Two units FFP given but INR 3.1 so vit K given IV and will see if INR can be down in am so a temporary vascath can be placed to start hemodialysis. Due to pt being flat part of the day with looking for vessels for vascath tube feeding was not started yet. If pt is more stable it can be started this pm. RIJ TLC patent. Left radial arterial line patent. Family at bedside and updated on pt's condition and plan of care. E: Stable S: Restraints for pt safety. Frequent rounding.
[2017-08-03 20:49] LABS: BASOPHILS % (AUTO) 0.2 % (0-3); EOSINOPHILS % (AUTO) 0.5 % (0-5); MONOCYTES % (AUTO) 6.4 % (4-12); Mean Corpuscular Hemoglobin 24.6 pg (27.0-35.0); Platelet Count 142 bil/L (150-400)
[2017-08-03 20:57] LABS: INR 2.51 ratio
[2017-08-03 21:03] LABS: Magnesium 1.9 mg/dL (1.6-2.6); Phosphorus 9.7 mg/dL (2.5-4.9)
[2017-08-03] MEDS ORDERED: 0.9% Sodium Chloride 250 ML IV ONE (21:30)
[2017-08-04] VITALS (15 sets, daily range): BP systolic 108–140; BP diastolic 44–50; PULSE 104–108; RESP 22; O2SAT 96–97
[2017-08-04] MEDS: Albuterol-Ipratropium 3 mL Inhalation Solution NEB SCH ×6 (00:43→21:11)
--- NOTE | 2017-08-04 00:51 | NUR ---
pt received one unit of blood and vitamin k 2029 lab results passed on to md, vitamin k and one unit of blood ordered, consent form on chart, pt tolerating unit of blood well, labs to be rechecked at 0300, r>l LE weeping, bed padded and dressing to rle changed frequently due to large amt of serous drainage, order clarified for lasix gtt and lasix started as ordered at approx 1600, sodium acetate iv stopped when bag done per md order also, fentanyl gtt at 150mcg/hr and ativan at 2mg/hr, bis= 30's-low 40's, nimbex at 0.5mcg/kg/min, tof=4/4 with pt compliant on vent, fio2.60, sat 96-97%, hob up, norepi decreased from 0.1 to 0.09 mcg/kg/min, cvp=22, md aware of uap and cvp, uap=20, left radial varghese intact, right ij intact, clarified with md about starting tube feeds, states to hold tf for now, see ccu flow sheet, in to see family and pt, pt's teary eyed tonight, states she hasn't had a lot of sleep lately,
[2017-08-04] MEDS: Insulin Human REGular 300 Unit/3 mL Inj SUBQ SCH ×4 (02:30→20:30)
[2017-08-04] MEDS: Chlorhexidine 0.12% 15 mL Oral Solution MUC_MEMBRM SCH ×5 (03:16→21:03)
[2017-08-04] MEDS: Albumin 25% 25 GM in IV Premix 1 EACH IV SCH (03:21)
[2017-08-04 03:24] LABS: Mean Corpuscular Hemoglobin 25.2 pg (27.0-35.0); Mean Corpuscular Volume 78.4 fL (81-100); Platelet Count 187 bil/L (150-400)
[2017-08-04 03:41] LABS: INR 1.76 ratio
[2017-08-04 03:44] LABS: BASOPHILS % (AUTO) 0 % (0-3); EOSINOPHILS % (AUTO) 0 % (0-5); MONOCYTES % (AUTO) 4 % (4-12); NEUTROPHILS % (AUTO) 88 % (40-74)
[2017-08-04 04:04] LABS: Magnesium 1.9 mg/dL (1.6-2.6); Phosphorus 9.9 mg/dL (2.5-4.9)
--- NOTE | 2017-08-04 04:41 | NUR ---
skin md aware pt's skin to lower extremities especially right le is more dark maroon colored, more swollen and developing more blisters, skin is also sluffing off and there are open wound areas, dressings changed regularly due to large amount of serous drainage, lower abd also more darkened in color, blisters noted to right lower abd,
[2017-08-04] MEDS: Norepineph 8,000 mCg/250 mL NS 8,000 MCG in IV Premix 1 EACH IV SCH ×4 (05:13→23:36)
[2017-08-04] MEDS: Furosemide Inj 100 MG in 0.9% Sodium Chloride 90 ML IVPUSH SCH (05:14)
--- NOTE | 2017-08-04 05:21 | ABG ---
DateTimeAnalyzed 05:14:00 -_ pH ____7.153 - 7.350 7.450 pCO2 ___33.4__ -mmHg 35.0 45.0 pO2 142 -mmHg 69.0 116 HCO3- ___11.2__ -mmol/L 22.0 26.0 ABE __-16.0__ -mmol/L -2.0 2.0 tHb ____7.8__ -g/dL 12.0 18.0 O2Hb ___96.3__ -% COHb ____1.0__ -% 0.0 1.5 MetHb ____0.9__ -% 0.4 1.5 sO2 ___98.2__ -% 25.0 FIO2 ___60.0__ -% PRVC 700 - PEEP ___12.0__ -cmH2O Set_RR ___22.0__ -b/min Drawn By AF - Date/Time Notified____ 05:21:00 -_ Spontaneous_RR ___22.0__ -b/min Oxygen Device 1 VENTILATOR - Notified By AF - Notified Whom ___Dr. Fuimaono - B 758 -mmHg tO2 ___10.9__ -Vol% Zoltan test N/A -
[2017-08-04] MEDS: Cisatracurium Inj 200,000 MCG in 0.9% Sodium Chloride-Pha MIX 100 ML IV SCH (05:39)
[2017-08-04] MEDS: LORazepam 100 mg/100 mL Drip IV SCH ×2 (06:06)
[2017-08-04] MEDS: Famotidine Inj 20 MG in IV Premix 1 EACH IV SCH (08:08)
[2017-08-04] MEDS: Clindamycin 900 mg/50 mL D5W IV SCH ×3 (08:09→21:03)
[2017-08-04] MEDS: Meropenem Inj 1,000 MG in 0.9% Sodium Chloride 100 ML IV SCH (08:09)
--- NOTE | 2017-08-04 10:16 | PROG NOTE ---
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 INTERVAL HISTORY: Overnight, the patient has continued to be dependent on moderately high doses of vasopressor agents with minimal urine output. His ventilatory requirements have actually increased and he is now on 60% FiO2 and 12 of PEEP. His right leg has been changing overnight and nurses and others have noticed the development of bullae over the right leg as well as extending up on the flanks bilaterally. In addition, his pannus has become somewhat mottled overnight. Obviously, the patient is intubated, sedated and not capable of any interaction. I discussed the case in detail with his extended family in the room. PHYSICAL EXAMINATION: Reveals an afebrile man. Temperature 37.4, he has been afebrile now for quite some time. Pulse 105, respiratory rate 22, blood pressure 133/48, on about 8 mcg/minute of norepinephrine. His FiO2 is 60, PEEP 12. Examination of the head, no change. No scleral icterus. The patient's orogastric tube and oral endotracheal tube in good position. Neck line on the right without evidence of inflammation. Efforts to place a dialysis line have so far been not successful. His lungs decreased breath sounds bilaterally. Cardiac tones regular but extremely distant. Abdomen massively obese with a pannus which is now becoming mottled and dark. Examination of the right lower extremity reveals the development over the past 24 or so hours of innumerable flaccid bullae, some of which are spontaneously rupturing and draining clear fluid. In addition, there are bullae present in the flanks bilaterally, and as well as one now developing on the pannus. LABORATORY DATA: White count now up to 19,000, with increasing left shift. His creatinine 9.15. LFTs stable. Procalcitonin 22, though it is difficult to interpret that value. Streptozyme five days ago was 405. Blood cultures remain negative. MRSA screen negative. IMAGING: From today, chest x-ray this morning cannot be seen on the view screen. I did see yesterday's x-ray which shows what appears to be bilateral interstitial infiltrates consistent with pulmonary edema. IMPRESSION: It is my opinion that the patient now has clear evidence of necrotizing Streptococcal infection which has been our concern since the beginning. The patient has innumerable group A and group B strep infections of the right lower extremity in the past, and now presented with severe right leg pain with shock, requiring aggressive intensive care unit care and associated with renal failure. He has now been in a period of general decline over the past several days and his leg initially appeared relatively stable but starting yesterday and much worse today, there is diffuse bullae which are consistent with a necrotizing group A strep or other beta hemolytic strep infection. 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 At this point, I am not certain there is any reasonable chance of survival in this complex case. RECOMMENDATIONS: 1. I would continue with our maximal antibiotic coverage adjusted for his renal failure which includes daptomycin, meropenem and clindamycin. 2. In an ordinary patient such as this with the development of bullae, we would consider surgery, but at this point, the patient becomes more hypotensive and unstable with turning, and I do not see any way that efforts could be reasonably made to amputate his leg with acceptable mortality. 3. I have emphasized to the family that this is becoming a very, very difficult situation in hopes that they would consider some limits to care in the near future. 4. I note that efforts are underway to obtain an access port for dialysis.
[2017-08-04] MEDS: fentaNYL 2,500 mCg/250 mL 2,500 MCG in IV Premix 1 EACH IV SCH (11:11)
--- NOTE | 2017-08-04 11:19 | PCM.PNNEPH ---
Subjective Date of Service Aug 04, 2017 Subjective Critically ill, low UOP, required vasopressor. INR reversed to 1.76. Worsening skin and soft tissue infection, now with bullae formation. Exam Vital Signs Vital Sign - Last Date Time Temp Pulse Resp B/P Pulse Ox O2 Delivery O2 Flow Rate FiO2 08/04/17 07:59 105 133/48 97 60 08/04/17 04:00 37.4 22 Mechanical Ventilator 07/30/17 09:28 3.00 Intake and Output 08/03/17 08/03/17 08/04/17 Cumulative From/Thru 15:00 23:00 07:00 07/29/17 08:35 - 08/04/17 04:00 Intake Total 650 ml 1366 ml 1854 ml 17212 ml Output Total 100 ml 70 ml 4168 ml Balance 650 ml 1266 ml 1784 ml 02845 ml Intake Oral 1303 ml IV Total 100 ml 1366 ml 1479 ml 64235 ml Packed Cells 375 ml 375 ml FFP 550 ml 550 ml Output Urine Total 50 ml 20 ml 1218 ml Gastric Drainage Total 50 ml 50 ml 2950 ml Other 0 ml # Voids 1 # Bowel Movements 0 0 Exam GENERAL: patient is intubated, sedated, super obese. HEENT: Head is normocephalic and atraumatic. NECK: Right triple-lumen in place, unable to access JVD. LUNGS: ET tube in place, coarse crackles B/L. HEART: Normal S1/S2, Regular rate and rhythm, distant heart sounds ABDOMEN: Soft, obese. Decreased bowel sounds. Darkening pannus. EXTREMITIES: Chronic skin changes, lymphedema, cobblestone appearance, bullae formation. Lab and Diagnostics Result Diagram: 08/04/17 03108/04/17 0310 X-Rays, CTs and MRIs X-RAY CHEST ONE VIEW, PORTABLE IMPRESSION: 1. Borderline prominence of the heart with mild to moderate vascular congestion. 2. Left infrahilar density probably represents atelectasis. Please correlate clinically to exclude pneumonia. Approved by: Arie Blake M.D. on 07/29/2017 at 8:53 X-RAY CHEST ONE VIEW, PORTABLE IMPRESSION: No change is seen in the chest x-ray since the film of 0525 hrs. Approved by: Joseph Miller M.D. on 08/02/2017 at 15:15 Cardiac Echo Impressions ECHO on 07/30/17 Interpretation Summary Normal sinus rhythm. Normal LV size and wall thickness. There is septal dyskinesis. otherwise normal wall motion. EF is 60-65%. There is moderate RV dilation with normal RV function. Otherwise normal chamber sizes. Aortic sclerosis without stenosis. Otherwise no significant valvular abnormalities. Estimated PA systolic pressure is 71 mm Hg assuming RA pressure of 20 mm Hg. Compared to prior study 11/06/2016, mild RV dilation is new. Elevated PA systolic pressure is new. Dyskinetic septum is new. Findings are concerning for PE. Additional Diagnostics US VEINOUS LEG DUPLEX UNILATERAL, RIGHT IMPRESSION: Limited examination secondary to body habitus. The left common femoral vein not visualized and cannot be evaluated. Deep vein thrombosis involving the left common femoral vein cannot be excluded. No evidence of deep vein thrombosis involving the left superficial femoral vein or popliteal vein. Approved by: Ary Trejo MD, PhD on 07/29/2017 at 12:29 ABG pH ____7.231 - 7.350 7.450 pCO2 ___48.7__ -mmHg 35.0 45.0 pO2 ___68.5__ -mmHg 69.0 116 HCO3- ___19.7__ -mmol/L 22.0 26.0 Liter_Flow ____4.0__ -L/min Oxygen Device 1 __CANNULA - Plan Impression 1. Acute kidney injury superimposed chronic glomerulonephritis - Secondary to acute tubular necrosis - Worsening kidney function, potassium and metabolic acidosis. 2. 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 - Necrotizing fasciitis 3. Acute on chronic hypoxemic hypercarbic respiratory failure. 4. Anion gap metabolic acidosis. 5. Super obese. 6. Suspected pulmonary embolism. Plan: Continue 25% albumin 100 mL every 8 hours. Increase Lasix drip 10 mg per hour. HD to be set up if access available. I really appreciate ICU team helping us out for a HD access placement in this challenging case. His prognosis is very poor. We will follow along. Damián Cabrera MD Aug 04, 2017 11:19
--- NOTE | 2017-08-04 11:36 | PCM.PNMED ---
Subjective Date of Service Aug 04, 2017 Subjective Pulmonary/critical care progress note Du Flannery is a 42 year old male with past medical history significant for BMI of 93, recurrent lower extremity cellulitis in the setting of bilateral lymphedema, and glomerulonephritis who presented with right lower extremity pain and shortness of breath. Patient quickly worsened developing presumed streptococcal septic shock from right lower extremity celluitis requiring pressor support and intubation due to respiratory failure. Patient was also diagnosed with a probable pulmonary embolism by echocardiogram as his obesity prohibits standard imaging studies. Subsequent to these issues his kidneys have continued to decline and his presumed group A strep infection has developed into a fulminant case of necrotizing fasciitis. Interval history Yesterday dialysis catheter was not placed due to elevated INR. Overnight Vitamin K and 1U PRBC was given. Placement of dialysis catheter planned for today by interventional radiologist. Patient has been unstable and with minimal manipulation will desats and drop his pressures requiring increased support. Right lower extremity cellulitis has worsened now with bullae formation and sloughing of skin representing what is likely a fulminant case of necrotizing fasciitis. Surgery consulted and transfer to higher level of care has been initiated. Exam Vital Signs Vital Sign - Last Date Time Temp Pulse Resp B/P Pulse Ox O2 Delivery O2 Flow Rate FiO2 08/04/17 05:24 107 137/49 96 60 08/04/17 04:00 37.4 22 Mechanical Ventilator 07/30/17 09:28 3.00 Intake and Output 08/03/17 08/03/17 08/04/17 Cumulative From/Thru 15:00 23:00 07:00 07/29/17 08:35 - 08/04/17 04:00 Intake Total 650 ml 1366 ml 1854 ml 90096 ml Output Total 100 ml 70 ml 4168 ml Balance 650 ml 1266 ml 1784 ml 63188 ml Intake Oral 1303 ml IV Total 100 ml 1366 ml 1479 ml 37668 ml Packed Cells 375 ml 375 ml FFP 550 ml 550 ml Output Urine Total 50 ml 20 ml 1218 ml Gastric Drainage Total 50 ml 50 ml 2950 ml Other 0 ml # Voids 1 # Bowel Movements 0 0 Exam General: Morbidly obese male intubated and sedated. Eyes: Pupils equal round and reactive to light, anicteric sclera, noninjected conjunctiva. HENT: Normocephalic, atraumatic, ET tube in place. Cardiovascular: Distant heart sounds. Regular rate and rhythm. No extra heart sounds or murmurs although difficult to assess. Lungs: Clear to auscultation bilaterally without wheezes. Abdomen: Obese complicating assessment of bowel tones and/or organomegaly. Extremities: Severe bilateral lymphedema. Decreased pulses bilaterally at dorsalis pedis and posterior tibialis. Skin: Right leg dusky in color with bullae, sloughing of skin, and weeping extending to groin and lower abdomen/panus. Neuro: Unable to assess given intubated and sedated Psych: Unable to assess given intubated and sedated Lines and tubes: ET tube OG tube Left arterial line Right peripheral line Reddy catheter Lab and Diagnostics Result Diagram: 08/04/17 0310 08/04/17 0310 X-Rays, CTs and MRIs X-RAY CHEST ONE VIEW, PORTABLE IMPRESSION: 1. Borderline prominence of the heart with mild to moderate vascular congestion. 2. Left infrahilar density probably represents atelectasis. Please correlate clinically to exclude pneumonia. Approved by: Arie Blake M.D. on 07/29/2017 at 8:53 X-RAY CHEST ONE VIEW, PORTABLE IMPRESSION: No change is seen in the chest x-ray since the film of 0525 hrs. Approved by: Joseph Miller M.D. on 08/02/2017 at 15:15 Cardiac Echo Impressions ECHO on 07/30/17 Interpretation Summary Normal sinus rhythm. Normal LV size and wall thickness. There is septal dyskinesis. otherwise normal wall motion. EF is 60-65%. There is moderate RV dilation with normal RV function. Otherwise normal chamber sizes. Aortic sclerosis without stenosis. Otherwise no significant valvular abnormalities. Estimated PA systolic pressure is 71 mm Hg assuming RA pressure of 20 mm Hg. Compared to prior study 11/06/2016, mild RV dilation is new. Elevated PA systolic pressure is new. Dyskinetic septum is new. Findings are concerning for PE. Additional Diagnostics DateTimeAnalyzed 05:14:00 -_ pH ____7.153 - 7.350 7.450 pCO2 ___33.4__ -mmHg 35.0 45.0 pO2 142 -mmHg 69.0 116 HCO3- ___11.2__ -mmol/L 22.0 26.0 ABE __-16.0__ -mmol/L -2.0 2.0 tHb ____7.8__ -g/dL 12.0 18.0 O2Hb ___96.3__ -% COHb ____1.0__ -% 0.0 1.5 MetHb ____0.9__ -% 0.4 1.5 sO2 ___98.2__ -% 25.0 FIO2 ___60.0__ -% PRVC 700 - PEEP ___12.0__ -cmH2O Set_RR ___22.0__ -b/min Spontaneous_RR ___22.0__ -b/min Assessment & Plan Du Flannery is a 42 year old male with past medical history significant for BMI of 93, recurrent lower extremity cellulitis in the setting of bilateral lymphedema, and glomerulonephritis who presented with right lower extremity pain and shortness of breath. Patient quickly worsened developing presumed streptococcal septic shock from right lower extremity celluitis requiring pressor support and intubation due to respiratory failure. Patient was also diagnosed with a probable pulmonary embolism by echocardiogram as his obesity prohibits standard imaging studies. Subsequent to these issues his kidneys have continued to decline and his presumed group A strep infection has developed into a fulminant case of necrotizing fasciitis. With the patient's worsening clinical picture and development of necrotizing fasciitis attempts are being made to transfer to higher level of care. The patient's current instability based on his pressor and FiO2 needs in the face of his morbid obesity complicate his transfer. Respiratory Acute hypoxic hypercapnic respiratory failure in the setting of morbid obesity and obstructive sleep apnea. - Patient on admission complaining of shortness of breath. Patient was trialed on BiPAP but became progressively somnolent and was intubated approximately 24 hours after admission. - Vent settings FiO2 .60 PEEP 14 RR 22 TV 700. FiO2 and PEEP needs have increased over the last 24 hours. - ABG 08/04/2017: 7.15/33/142/11. - Patient dyssynchronous with the vent on 08/02/17 and was subsequently placed on Nimbex. Possible pulmonary emboli. - Due to patient's morbid obesity unable to obtain a CT angiogram, VQ study, or lower extremity Doppler to evaluate for DVTs. Diagnosis of pulmonary emboli is based on echo findings and patient's symptoms. - Patient was started on a heparin drip but this has been discontinued due to both concerns of blood loss anemia along with the plan to place a dialysis catheter today. Obstructive Sleep Apnea. - Patient currently intubated. Infectious Necrotizing fascitis of right lower extremity in the setting of severe lymphedema. - Etiology likely streptococcal toxic shock. - Patient has a persistently elevated streptozyme. - Blood cultures are negative. - MRSA nasal screen negative. - Continue broad spectrum antibiotics per ID: clindamycin, daptomycin, meropenem. - Surgery consulted. Cardiorenal Severe sepsis with septic shock secondary to right lower extremity cellulitis. - Diagnosis made based on WBC 21.3, 32% bands, pro-calcitonin 85.02, heart rate 110, and MAPs in the 50s. - Diastolic blood pressures remain in the 40s. Although MAPs have improved to 65-70. - Patient initially received fluids but due to patient's severe renal failure fluids have been held except for what he is receiving with medications. - Norepinephrine was increased to 0.5 yesterday as pressures dropped during wound care. Currently at 0.09. Acute kidney injury on chronic kidney disease with noted chronic glomerulonephritis. - Patient's renal function has continued to decline over his last 8 hospitalizations since December. He has had poor outpatient follow-up with nephrology. - On admission creatinine 4.54. Today creatinine is 9.15 and BUN is 83. - Patient currently anuric. - Potassium currently 5.2. - Plan to place dialysis catheter today by IR. Overnight vitamin K given. INR currently 1.76. - Lasix GTT. - Dr. Hernandez, nephrology, following. Appreciate time and recommendations. Hematologic Possible acute blood loss anemia. - Hemoglobin 7.7 and hematocrit 24 after 1 unit PRBCs overnight. - No definitive source of bleeding. - Heparin drip stopped on 08/02/17. Metabolic Electrolytes currently stable in the face of renal failure. Will continue to closely monitor. Alimentary Trophic tube feeds to be started today. Neuro Currently sedated with lorazepam and fentanyl gtt. Paralyzed with Nimbex. DVT prophylaxis: Heparin drip discontinued given worsening anemia and placement of dialysis catheter today. GI prophylaxis: Famotidine CODE STATUS full code. GI Prophylaxis: Not indicated VTE Prophylaxis: Other (heparin drip discontinued ) Resuscitation Status: CPR: Attempt Resuscitation Attending Statement I have seen and examined this patient with the resident physician. Vital signs , labs, imaging have been reviewed. I agree with the assessment and plan above. Please refer to my separately dictated progress note for any modifications to above. Elizabeth Alatorre M.D. Pulmonary and Critical Care medicine Pager [phone] YARED LAGUNA DO Aug 04, 2017 07:08 Elizabeth Alatorre MD Aug 04, 2017 16:08
[2017-08-04] MEDS ORDERED: Heparin 10,000 Unit/1,000 mL NS Premix IV ONE ×2 (12:39→12:54)
[2017-08-04] MEDS ORDERED: Heparin 1,000 Unit/mL 10 mL Inj ONE ×2 (12:39→12:54)
[2017-08-04] MEDS: Sodium Acetate Inj 150 MEQ in Dextrose 5% 1,000 ML IV SCH ×2 (12:41→21:01)
--- NOTE | 2017-08-04 12:48 | NUR ---
spiritual care: follow up/family listening support as family reflected on pt's condition and news of too risky for dialysis status. family requested contact with . Message left for Father Gadiel Holder.
[2017-08-04] MEDS ORDERED: Heparin 1,000 Units/500 mL NS Premix IV ONE (12:54)
--- NOTE | 2017-08-04 14:39 | PROG NOTE ---
[address] [address] PROGRESS NOTE PATIENT: PO DELGADO : 1975 MR#: [id number] ADMIT: 07/29/2017 JOB ID: [id number] PULMONARY CRITICAL CARE PROGRESS NOTE: DATE: 08/04/2017 SUBJECTIVE: This patient is a 42-year-old man with super morbid obesity, BMI of 94, admitted with severe soft tissue infection, probably necrotizing fasciitis, septic shock, and respiratory and renal failure. The patient was seen and examined with resident physician, Priyanka Wallace. Please refer to her separate detailed note for complete information. INTERVAL HISTORY: The patient's oxygenation has worsened slightly overnight, acidosis has worsened slightly despite sodium acetate infusion overnight. Remains anuric. His right lower extremity and lower abdominal wall are looking worse with new blisters concerning for necrotizing soft tissue infection. REVIEW OF SYSTEMS: Unable to obtain. PHYSICAL EXAMINATION: Vital signs reviewed. FiO2 60%, PEEP increased to 14 cm. General: Super morbidly obese gentleman lying in bed, intubated, sedated and paralyzed. Chest: Clear to auscultation. Skin and soft tissue - right lower extremity has significant edema with venous stasis dermatitis and a few dark, fluid filled blisters along the thigh. In addition, the lower abdominal wall pannus has a few dark blisters as well. Erythema cannot be appreciated over his darker skin coloring. LABORATORY DATA: Labs reviewed. WBC 19 from 14.5, hemoglobin dropped to 6.9 overnight and improved to 7.7 with transfusion. INR is down to 1.76. Chemistry reviewed and notable for bicarb of 11, potassium 5.2, BUN 93, creatinine 9.1, procalcitonin is 22 from 30 yesterday. CULTURES: No new data. IMAGING: Shows worsening bibasilar atelectasis and effusions. Arterial blood gas today shows pH is 7.15, pCO2 33, pO2 142 and bicarb of 11. ASSESSMENT AND RECOMMENDATIONS: 1. Suspected necrotizing soft tissue infection of the right lower extremity and lower abdomen. 2. Septic shock. 3. Acute hypoxic hypercarbic respiratory failure. 4. Acute on chronic renal failure. 5. Super morbid obesity with BMI of 93, weight is now 695 pounds. This complex 42-year-old man is admitted with septic shock, respiratory failure, and now acute renal failure, anuric with worsening metabolic acidosis and hyperkalemia. He has had multiple hospitalizations over the last year with what appeared to be soft tissue infections that he typically improves with antibiotics, but currently, he has been on the ventilator for over eight days, getting IV antibiotics and remains pressor dependent, with progressive renal failure. His right lower extremity and lower abdominal wall appearance today is much more concerning for necrotizing soft tissue infection and would be much more likely with his ongoing picture of persistent shock requiring vasopressors despite IV antibiotics for many days now. We spoke to the family about surgical options for treatment being the only way to potentially save his life. We asked Dr. Galdamez with General Surgery to see the patient. His recommendation was to be transferred to [facility] for surgical therapy and we did speak with the Surgical ICU doctor at [facility] who accepted the patient for transfer. In the meantime, however the patient's family decided against pursuing transfer or surgical options because of the low likelihood of recovery. The patient's has requested that we continue the ventilator support and antibiotics for now, but after much discussion regarding pros and cons, the family has decided against pursuing hemodialysis. We will continue daptomycin, meropenem and clindamycin. He is on sodium acetate infusion to try and help his acidosis but with persistent anuric renal failure, I think this is not likely to help much longer. We considered palliative Care consultation, but the patient's family seemed overwhelmed with multiple physicians to speak to and at this point I think we should hold off. After conversation with his , per Dr. Galdamez, he is now DNR, no CPR or shock. CRITICAL CARE TIME: 90 minutes.
[2017-08-04] MEDS: 0.9% Sodium Chloride 250 ML IV SCH (15:01)
--- NOTE | 2017-08-04 15:33 | NUR ---
P: Hypotension I: Bathed front of pt but lifting his legs to change pads underneath his BP dropped to 80/40. Norepinephrine increased to 0.5mcqs and as BP improves will lower norepinephrine. Ativan 2mg /hr and fentanyl 150mcqs. Sodium Acetate gtt started and is infusing. Dr. Eddy seen the pt this am and removed leg dressings and requests the legs not have dressings on. Nimbex 0.5mcqs to keep respirations from being unsynchronous. BIS 30's. Train of four 2:4. Linens and pads changed under his legs and pads placed next to his side as he has blisters. Reddy patent with minimal urine output as pt is anuric. Family decided against transfer to [facility] and against hemodialysis. ST. Dr. Alatorre does not want tube feeding started. Pt's code status changed and possible palliative consult. Vascular Tech in to see pt. Family updated on pt's condition and plan of care. E: Poor S: Restraints on for pt safety. Frequent rounding. Supportive care to family.
--- NOTE | 2017-08-04 16:11 | CONS ---
[address] [address] CONSULTATION REPORT PATIENT: PO DELGADO : 1975 MR#: [id number] ADMIT: 07/29/2017 JOB ID: [id number] DATE OF SERVICE: 08/04/2017 CHIEF COMPLAINT/IDENTIFICATION: Dr. Alatorre and the Medicine Service asked me to consult on this 42-year-old man with possible progressive soft tissue infection of the lower extremities and pannus. HISTORY OF PRESENT ILLNESS: The patient suffers from morbid obesity with BMI recorded at 94, and previous multiple admissions for lower extremity infections. He has been at our hospital now for several days with clinical signs of sepsis thought to be due to lower extremity cellulitis and panniculitis. He has been on broad-spectrum antibiotics, and over the course of the day today, has developed some blistering and mottling on the mid abdomen. I am asked to see him. I have reviewed his extensive past medical history and previous admissions. PHYSICAL EXAMINATION: Reveals an extremely large, morbidly obese male, intubated and sedated. He has chronic changes consistent with venous stasis disease and lymphedema in the lower extremities, chronic panniculitis, and now on his pannus and areas on his skin he has some skin blistering with clear fluid in the blisters. There is a reticular pattern up on his upper abdomen, no crepitus to examination. LABORATORIES: Show white count that has gone from 14.5 yesterday to 19 today. Hematocrit is 24. Platelet count is 187. He has 6% bands and 1% metamyelocytes. Chemistry shows a rising creatinine to 9, carbon dioxide low at 11. Liver function tests are normal. Procalcitonin is 22.24, down from yesterday of 30.30. Total CK is 141. IMAGING: He has some chest x-rays and distal foreleg imaging from the , but his size precludes CT or MRI. IMPRESSION AND PLAN: I have discussed this patient with Dr. Alatorre. He clearly is not responding to maximum medical therapy for his soft tissue infection, and given the blistering, I am concerned that he is developing some sort of necrotizing soft tissue infection that would require debridement. The infection is not progressing so quickly that we need to do this here, and I have recommended that we transfer him to [facility]. However, the patient's family and has been resistant to this and I have had a discussion with the patient's family, primarily with his today. I explained that I believe he has a life-threatening soft tissue infection that is failing to respond adequately to maximum medical management and that his only hope for survival would be debridement. I outlined the uncertainty of his diagnosis due to inability to image him at his size, recommended transfer to [facility] if they want to continue with aggressive care, but did outline what would be expected in terms of his extensive debridement, eventual skin grafting, and at best, a marion ICU course with a less than 50% probability of survival. We discussed his long-term outlook, and I thought that another reasonable option would be to make him comfort care, though his is not ready to do this. She would like to proceed with "maximal medical care" here at our institution but not risk transferring him down to [facility] where there would be no certainty of improved outcome and the risk of transfer. I did recommend that if his heart were to stop, that CPR and electrocardioversion not be performed and she and the family agree to this. This discussion was had with the patient's and extended family, along with Dr. Alatorre from the ICU Service being present. At the family's request,I will continue to follow on an [id number] basis. At this point, they do not want to pursue any surgical intervention but would like to continue maximal medical interventions short of a electrocardioversion or chest compressions if this patient does have a cardiac arrest. PAULETTE
--- NOTE | 2017-08-04 16:30 | PCM.PNMED ---
Subjective Date of Service Aug 04, 2017 Subjective Du Flannery is a 42 year old male recurrent leg cellulitis, severe bilateral lymphedema, hypertension, chronic pain, obstructive sleep apnea who presents to [facility] emergency department with increased redness on left leg and shortness of breath. Patient has been transferred to the ICU and was intubated by the anesthesiologist and placed on volume ventilation. A right IJ line was placed in addition to a radial arterial line. Antibiotics were started per infectious disease. Acute on chronic kidney disease is worsening, likely as a result of acute tubular necrosis secondary to sepsis and septic shock. Patient was found to have evidence of possible pulmonary embolism from echocardiogram and was on heparin drip but this has been discontinued. Today, patient's lower extremities appears to be developing more blisters and is looking darker. General Surgery has been consulted to see the patient for likely necrotizing fasciitis. They recommend that patient be sent to [facility]. After discussion with ICU team and hospitalist team, patient's family opted to defer transfer and surgical options as they are not likely going to result in good recovery. Overnight, patient's hgb decreased to 6.9 and he was given 1 unit Prbcs. He also received Vitamin K, with hopes of decreasing his INR. Initially, the plan was to get a dialysis catheter so that the patient can be dialyzed. Exam Vital Signs Vital Sign - Last Date Time Temp Pulse Resp B/P Pulse Ox O2 Delivery O2 Flow Rate FiO2 08/04/17 05:24 107 137/49 96 60 08/04/17 04:00 37.4 22 Mechanical Ventilator 07/30/17 09:28 3.00 Intake and Output 08/03/17 08/03/17 08/04/17 Cumulative From/Thru 15:00 23:00 07:00 07/29/17 08:35 - 08/04/17 04:00 Intake Total 650 ml 1366 ml 1854 ml 17344 ml Output Total 100 ml 70 ml 4168 ml Balance 650 ml 1266 ml 1784 ml 69045 ml Intake Oral 1303 ml IV Total 100 ml 1366 ml 1479 ml 34103 ml Packed Cells 375 ml 375 ml FFP 550 ml 550 ml Output Urine Total 50 ml 20 ml 1218 ml Gastric Drainage Total 50 ml 50 ml 2950 ml Other 0 ml # Voids 1 # Bowel Movements 0 0 Exam General: Patient is a morbidly obese male, lying with head propped upright on bed, intubated on ventilator HEENT: head normocephalic and atraumatic, PERRLA, EOMI, no scleral icterus, injected conjunctiva Neck: neck supple, non-tender, no lymphadenopathy, trachea midline, no JVD CV: regular rate and rhythm but heart sounds are very distant, radial pulses are palpable bilaterally, no murmurs Lungs: lung sounds are also distant and appears to be decreased bilaterally Abdomen: pannus is massive, evidence of small laceration on left side of abdomen , covered by panus, normoactive bowel sounds, soft, and very tympanic to percussion, bottom of pannus is darkening with evidence of induration and some blisters Skin:warm and dry Extremities: significant lymphedema with tree-bark appearance of lower extremities bilaterally, Right leg is bigger in size compared to left leg, evident erythema and induration noted. worsening blisters, draining serosanguineous fluid and skin getting darker Neuro: unable to assess as patient is very somnolent Psych:unable to assess as patient is very somnolent : Reddy catheter IVs and Medications Medications Reviewed: Medications were reviewed in detail Medications High Risk medications include Norepi, Nimbex, fentanyl and lorazepam Lab and Diagnostics Laboratory Tests Test 08/03/17 12:53 08/03/17 14:33 08/03/17 20:30 08/04/17 03:10 Hemoglobin 7.0g/dL (13.8-17.2) 6.9g/dL (13.8-17.2) 7.7g/dL (13.8-17.2) Hematocrit 22.4% (41.0-50.0) 22.2% (41.0-50.0) 24.0% (41.0-50.0) Prothrombin Time 35.0sec (8.1-12.5) 27.4sec (8.1-12.5) 19.1sec (8.1-12.5) Prothromb Time International Ratio 3.19ratio 2.51ratio 1.76ratio White Blood Count 14.5th/mm3 (3.8-10.1) 19.0th/mm3 (3.8-10.1) Red Blood Count 2.81mil/mm3 (4.40-5.80) 3.06mil/mm3 (4.40-5.80) Mean Corpuscular Volume 79.0fL (81-100) 78.4fL (81-100) Mean Corpuscular Hemoglobin 24.6pg (27.0-35.0) 25.2pg (27.0-35.0) Mean Corpuscular Hemoglobin Concent 31.1% (32.0-37.0) 32.1% (32.0-37.0) Red Cell Distribution Width 16.2% (12.3-15.4) 16.6% (12.3-15.4) Platelet Count 142bil/L (150-400) 187bil/L (150-400) Neutrophils (%) (Auto) 80.0% (40-74) 88% (40-74) Lymphocytes (%) (Auto) 5.5% (14-46) 3% (14-46) Monocytes (%) (Auto) 6.4% (4-12) 4% (4-12) Eosinophils (%) (Auto) 0.5% (0-5) 0% (0-5) Basophils (%) (Auto) 0.2% (0-3) 0% (0-3) Sodium Level 134mEq/L (134-144) 133mEq/L (134-144) Potassium Level 4.9mEq/L (3.5-5.2) 5.2mEq/L (3.5-5.2) Chloride Level 100mEq/L (97-108) 99mEq/L (97-108) Carbon Dioxide Level 11mmol/L (18-29) 11mmol/L (18-29) Blood Urea Nitrogen 84mg/dL (6-24) 83mg/dL (6-24) Creatinine 9.01mg/dL (0.76-1.27) 9.15mg/dL (0.76-1.27) Estimat Glomerular Filtration Rate 7mL/min (>59) 7mL/min (>59) Glucose Level 106mg/dL (60-99) 92mg/dL (60-99) Calcium Level 7.4mg/dL (8.5-10.1) 7.5mg/dL (8.5-10.1) Phosphorus Level 9.7mg/dL (2.5-4.9) 9.9mg/dL (2.5-4.9) Magnesium Level 1.9mg/dL (1.6-2.6) 1.9mg/dL (1.6-2.6) Band Neutrophils % 6% (1-5) Metamyelocytes % 1% (0-0) Hematology Comments Lactic Acid Level 1.1mmol/L (0.4-2.0) Total Bilirubin 0.6mg/dL (0.0-1.2) Aspartate Amino Transf (AST/SGOT) 12U/L (0-50) Alanine Aminotransferase (ALT/SGPT) 6U/L (0-44) Alkaline Phosphatase 106U/L (25-150) Total Protein 6.4g/dL (6.4-8.4) Albumin 2.3g/dL (3.4-5.0) Procalcitonin 22.24ng/mL (0.00-0.08) Microbiology 07/29/17 Blood Culture - Final, Complete NO GROWTH AFTER 5 DAYS 07/29/17 MRSA (PCR) - Final, Complete 07/30/17 Urine Culture - Final, Complete Mixed Urogenital Danielle Result Diagram: 08/04/17 0310 08/04/17 0310 X-Rays, CTs and MRIs X-RAY CHEST ONE VIEW, PORTABLE IMPRESSION: 1. Borderline prominence of the heart with mild to moderate vascular congestion. 2. Left infrahilar density probably represents atelectasis. Please correlate clinically to exclude pneumonia. Approved by: Arie Blake M.D. on 07/29/2017 at 8:53 X-RAY CHEST ONE VIEW, PORTABLE IMPRESSION: No change is seen in the chest x-ray since the film of 0525 hrs. Approved by: Joseph Miller M.D. on 08/02/2017 at 15:15 Cardiac Echo Impressions ECHO on 07/30/17 Interpretation Summary Normal sinus rhythm. Normal LV size and wall thickness. There is septal dyskinesis. otherwise normal wall motion. EF is 60-65%. There is moderate RV dilation with normal RV function. Otherwise normal chamber sizes. Aortic sclerosis without stenosis. Otherwise no significant valvular abnormalities. Estimated PA systolic pressure is 71 mm Hg assuming RA pressure of 20 mm Hg. Compared to prior study 11/06/2016, mild RV dilation is new. Elevated PA systolic pressure is new. Dyskinetic septum is new. Findings are concerning for PE. Additional Diagnostics US VEINOUS LEG DUPLEX UNILATERAL, RIGHT IMPRESSION: Limited examination secondary to body habitus. The left common femoral vein not visualized and cannot be evaluated. Deep vein thrombosis involving the left common femoral vein cannot be excluded. No evidence of deep vein thrombosis involving the left superficial femoral vein or popliteal vein. Approved by: Ary Trejo MD, PhD on 07/29/2017 at 12:29 ABG pH ____7.231 - 7.350 7.450 pCO2 ___48.7__ -mmHg 35.0 45.0 pO2 ___68.5__ -mmHg 69.0 116 HCO3- ___19.7__ -mmol/L 22.0 26.0 Liter_Flow ____4.0__ -L/min Oxygen Device 1 __CANNULA - Assessment & Plan Du Flannery is a 42 year old male recurrent leg cellulitis, severe bilateral lymphedema, hypertension, chronic pain, obstructive sleep apnea who presents to [facility] emergency department with increased redness on left leg and shortness of breath. Patient has been transferred to the ICU and was intubated by the anesthesiologist and placed on volume ventilation. A right IJ line was placed in addition to a radial arterial line. Antibiotics were started per infectious disease. Acute on chronic kidney disease is worsening, likely as a result of acute tubular necrosis secondary to sepsis and septic shock. Patient was found to have evidence of possible pulmonary embolism from echocardiogram and was on heparin drip but this has been discontinued. Patient remains on norepi drip for pressure support and trophic tube feeds are being initiated today. There is concern that patient may be developing a necrotizing skin infection and general surgery has been consulted, who suggested that patient be transferred to [facility]. However, family opted not to proceed with the transfer given that chances of recovery is not very promising. Patient is now DNR, no CPR and no shock. Severe Sepsis with Septic Shock -Initially, WBC 21.3, 32% bands, pro-calcitonin and 85.02 -Today, Procalcitonin 22.24, WBC 19.0 -Infectious Disease, Dr. 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 possible streptococcal toxic shock syndrome -Per ID, continue with maximal dose daptomycin, meropenem and clindamycin -concern for likely soft tissue necrotizing fasciitis -Continue to monitor CBC, procalcitonin -Patient requires norepinephrine to maintain this pressures,currently unable to titrate norepinephrine off, -nephrology initiated Lasix drip given tenuous blood pressures and significant volume overload after acute decompensation requiring IV fluids Acute hypoxic hypercapnic respiratory failure -with severe metabolic and respiratory acidosis - Possibly combined effects of obesity hypoventilation syndrome and pulmonary emboli - Noted pH of 7.23 with PCO2 of 48.7 and PO2 of 68.5 on 4 L nasal cannula in the ED - Initially, RT placed BiPAP as necessary with oxygen goals between 88 and 92% given possibility of chronic CO2 retention but patient continued to decompensate and was intubated -Patient intubated on volume ventilation -Per ICU team, try to get the patient more upright in order to better ventilate the bases. -ICU team adjusting vent settings -Today, ABG 08/04/2017: 7.15/33/142/11. -Patient was dyssynchronous with vent and started on Nimbex -Patient received Ativan and Fentanyl, but try to avoid sedation as much as possible Possible Acute pulmonary emboli -as evidenced by ECHO findings - Patient has lower extremity edema making clinical signs of DVT as well as LE US imaging difficult, however is notably sedentary lifestyle with d-dimer of 1.91 and a heart rate greater than 100, with review of records indicated that the patient is not typically tachycardic at baseline, giving him a well's score of 4.5 with a moderate risk of pulmonary emboli approximately 16.2% - Given patient's body habitus and poor kidney function no ability to perform CT PE or VQ scan - Warfarin and heparin drip discontinued per primer inserting machine adjuster Dr. 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 Right renal cortical thickness is 1.7 cm; left renal cortical thickness is 1.6 cm. Renal cortical echotexture is normal. - Chronic kidney disease with currently uncertain staging given with baseline creatinine approximately 1.1-1.3 in December 2016 with consistent increases in creatinine every hospitalization since December to current admission - Creatinine of 4.54 admission, worse today with BUN and creatinine were 54 and 6.7 -His C3 and C4 are both normal thus excluding acute glomerulonephritis - Fractional excretion of sodium calculated at 0.6% consistent with prerenal causes for worsening kidney injury - Nephrology, Dr. Hernandez to initiate a Lasix drip with continued albumin infusion scheduled, this case was discussed extensively with nephrology given the guarded prognosis -Today BUN 83, Cr 9.15and Potassium 5.2. Given worsening renal function and anuria, the plan was to place a dialysis catheter and dialyze patient. However, per family's wishes, we will pursue a different route -Continue Sodium acetate drip Acute on chronic cellulitis of right lower extremity - poor circulation and Lymphedema are contributing factors to recurrent infections. - White blood cell count of 4.4 notably lower than prior admissions possibly atypically consistent with infectious etiology, pro-calcitonin of 0.37 typically considered indeterminate - Pt last hospitalized on 06/11/2017 for cellulitis, left AMA, at that time ID was consulted, recommended ceftriaxone while inpatient and cefdinir 300 once per day as outpatient for minimum of 10 days, with clindamycin 300 mg p.o. b.i.d. indefinitely as prophylaxis. - Blood Culture ordered and pending - MRSA negative - Continue with ID recommendations of clindamycin, daptomycin, meropenem Acute worsening of Chronic normocytic anemia - Hemoglobin of 8.8 at admission with MCV of 83 - Chronic anemia is likely secondary to chronic kidney disease with severe glomerulonephritis blood loss as well as poor erythropoietin production - Hemoglobin continues to trend down to hemoglobin in the mid sevens, currently uncertain if this is due to heparin drip and warfarin anticoagulation resulting in a spontaneous bleed or secondary to hemodilution given significant maintenance fluids resulting in 18 L net positive - Warfarin and heparin drip discontinued per primer inserting machine adjuster Dr. Mckeon recommendations which was discussed extensively given the patient's poor prognosis with pulmonary emboli not on anticoagulation currently intubated and sedated -2 units FFP is given -Patient received 1 unit PRBcs overnight - Monitor Hypertension, chronic, not ongoing -Patient is currently normotensive - Monitor and hold home medication until more normotensive - Consider initiating alternative blood pressure medication to amlodipine considering chronic lower extremity edema - Avoid Poncho inhibitors given kidney disease with acute kidney injury - Consider initiating labetalol 100 mg by mouth twice a day as necessary Depression, chronic - continue Sertraline 150 mg daily when able Chronic severe morbid Obesity - continue pulse oximetry - Pt does not use CPAP at home -Patient's BMI is 90.9 Chronic pain syndrome - Patient generally receives ativan for anxiety continue for sedation reasons while intubated -Hold home dose of oxycodone while intubated Obstructive Sleep Apnea, chronic - Patient currently intubated Chronic prediabetic [id number] - A1c of 6.3 in April 2017 - A1c on this admission 5.8 DVT prophylaxis: Heparin drip discontinued given worsening anemia GI prophylaxis: Not indicated CODE STATUS is full. Patient is likely to remain inpatient for a prolonged period of time giving current state of health. Prognosis is tenuous given the primary diagnosis. Pain Evaluation: Adequate Pain Control GI Prophylaxis: Not indicated VTE Prophylaxis: Other (heparin drip discontinued ) Resuscitation Status: Limited Interventions (DNR, no CPR ) Attending Statement The patient was seen and examined together with Dr. Merritt on 08/04/2017 and I agree with the history, exam and plan as outlined in the note above. . Eusebia Merritt DO Aug 04, 2017 06:32 Rod Grimaldo MD Aug 05, 2017 16:21
--- NOTE | 2017-08-04 16:59 | DRSVH ---
PROCEDURE: X-RAY CHEST ONE VIEW, PORTABLE ([id number]) INDICATIONS: intubated TECHNIQUE: One view of the chest was acquired. COMPARISON: [facility], CR, XR CHEST 1VW (PORTABLE), 08/02/2017, 5:25. [facility], CR, XR CHEST 1VW (PORTABLE), 08/01/2017, 5:53. [facility], CR, XR CHEST 1VW (NIKO BLE), 08/03/2017, 5:25. FINDINGS: Surgical changes and devices: Stable position of ETT and right IJ CVL. Nasogastric tube tip not well seen on current exam. Lungs and pleura: Chronic elevation right hemidiaphragm. Diffuse, widespread bilateral pulmonary inte rstitial and air space opacities are present similar to prior examination. Small pleural effusions r edemonstrated. Mediastinum: Mediastinal contours appear normal. Heart size is enlarged. Bones and chest wall: No suspicious bony lesions. Overlying soft tissues appear unremarkable. IMPRESSION: 1. Persistent pulmonary edema and/or diffuse bilateral pneumonia not significantly changed from prior examination. 2. Small basilar pleural effusions and persistent cardiomegaly. Dictated by: Kody Maria A Interpreted: Marcia Frias MD on 08/04/2017 at 7:51 Approved by: Marcia Frias M.D. on 08/04/2017 at 16:57
--- NOTE | 2017-08-04 17:25 | NUR ---
spiritual care: family-case hardener family requesting contact with case hardener. Father Romaine Holder contacted and visited. continuing to follow. family gathering from [facility] and conversations include care/treatment plan. Family grieving appropriately, supportive of one another.
[2017-08-04] MEDS: Acetaminophen 32.5 mg/mL 20 mL Liquid TUBE PRN (21:10)
[2017-08-05] VITALS (9 sets, daily range): BP systolic 92–126; BP diastolic 43–52; PULSE 98–115; RESP 22; O2SAT 96–98
[2017-08-05] MEDS: Chlorhexidine 0.12% 15 mL Oral Solution MUC_MEMBRM SCH ×6 (00:01→19:43)
[2017-08-05] MEDS: Albuterol-Ipratropium 3 mL Inhalation Solution NEB SCH ×2 (00:38→04:27)
[2017-08-05] MEDS: Clindamycin 900 mg/50 mL D5W IV SCH ×3 (02:09→16:15)
[2017-08-05] MEDS: Acetaminophen 32.5 mg/mL 20 mL Liquid TUBE PRN (02:11)
[2017-08-05] MEDS: Insulin Human REGular 300 Unit/3 mL Inj SUBQ SCH ×4 (02:15→20:30)
[2017-08-05] MEDS: fentaNYL 2,500 mCg/250 mL 2,500 MCG in IV Premix 1 EACH IV SCH ×2 (03:45→19:43)
[2017-08-05 04:48] LABS: INR 1.31 ratio
[2017-08-05] MEDS: Norepineph 8,000 mCg/250 mL NS 8,000 MCG in IV Premix 1 EACH IV SCH ×3 (04:57→12:12)
[2017-08-05] MEDS: Sodium Acetate Inj 150 MEQ in Dextrose 5% 1,000 ML IV SCH ×3 (05:26→19:56)
--- NOTE | 2017-08-05 06:14 | NUR ---
P) Fever/Cardiac/comfort Pt. febrile tonight, T-max 39.2c orally, given tylenol per OG but minimal response though dwell was > 1 hour, cardiac rhythm sinus/sinus tach with occasional 1st degree AVB. Lungs coarse and decreased, minimal slightly yellowish secretions. requests no turning of pt, though she did allow replacement of the pad under hei leg that was saturated with foul smelling exudate. I) keeping pt. and family comfortable, allowed multitudinous visitors as this is cultural for this family. E) Pt. resting quietly, norepi increased to 0.5mcg/kg/min to support dropping BP.
[2017-08-05 07:32] LABS: Mean Corpuscular Hemoglobin 25.4 pg (27.0-35.0); Mean Corpuscular Volume 77.9 fL (81-100); Platelet Count 276 bil/L (150-400)
[2017-08-05 07:45] LABS: Magnesium 1.9 mg/dL (1.6-2.6); Phosphorus 11.5 mg/dL (2.5-4.9)
--- NOTE | 2017-08-05 07:47 | ABG ---
DateTimeAnalyzed 07:40:00 -_ pH ____7.151 - 7.350 7.450 pCO2 ___33.9__ -mmHg 35.0 45.0 pO2 134 -mmHg 69.0 116 HCO3- ___11.3__ -mmol/L 22.0 26.0 ABE __-16.1__ -mmol/L -2.0 2.0 tHb ____9.2__ -g/dL 12.0 18.0 O2Hb ___95.9__ -% COHb ____0.8__ -% 0.0 1.5 MetHb ____1.2__ -% 0.4 1.5 sO2 ___97.9__ -% 25.0 FIO2 ___60.0__ -% PRVC 700 - PEEP ___14.0__ -cmH2O Set_RR ___22.0__ -b/min Vt __700.0__ -L Drawn By NB - Date/Time Notified____ 07:47:00 -_ Oxygen Device 1 VENTILATOR - Notified By NB - Notified Whom Dr Rodrigo - B 757 -mmHg tO2 ___12.7__ -Vol% Zoltan test N/A -
--- NOTE | 2017-08-05 08:23 | PROG NOTE ---
[address] [address] PROGRESS NOTE PATIENT: PO DELGADO : 1975 MR#: [id number] ADMIT: 07/29/2017 JOB ID: [id number] DATE: 08/05/2017 REASON FOR FOLLOWUP: 1. Septic shock. 2. Acute renal failure. 3. Ventilatory dependent respiratory failure. 4. Progressive soft tissue changes in the lower extremity and pannus. INTERVAL HISTORY: Over the past 24 hours the patient has continued to progressively declined. He remains on high-dose vasopressor agents and is intubated, ventilated, and paralyzed. There has been progressive bleb formation and discoloration now involving both lower extremities as well as his pannus. There is now a foul odor emanating from the area of his legs, which are starting to appear frankly necrotic. This case was discussed extensively this morning with the ICU team caring for the patient as well as the bedside nurses and the family. PHYSICAL EXAMINATION: Reveals an intubated, sedated, paralyzed gentleman. Current temperature 39.2 and these fevers started just late last night. He had previously been afebrile through almost his entire hospital stay except for a single temperature of 38.0 during the first day. Otherwise he has been afebrile for basically five days and then suddenly spiked to 39 degrees and those fevers have been persistent through the night, 39.2 this morning. Pulse 98, blood pressure 126/50. He is saturating is 97% on 60 FiO2 and 14 of PEEP. Examination of the head without notable new changes. Eyes without scleral icterus are not responsive of course. Oral endotracheal tube and orogastric tube in good position. Right IJ in good position. There is no evidence of inflammation around that. Lungs sounds are distant with just scattered rhonchi. Cardiac tones distant and regular. Abdomen massively obese. The lower portion of the abdomen which is basically a pannus is now becoming dark and obviously ischemic with some large blebs forming. His right lower extremity is basically covered with blebs, and I aspirated one of those to send for culture today. I obtained only clear fluid. The right leg is also involved by this and there is a foul odor emanated from both of his now frankly necrotic and/or ischemic lower extremities. He has no urine output. LABORATORIES: Include a white count which had been 21,000 when he came in. It dropped to about 15,000 the past several days, and is now 19,000. This is in association with lactic acid that was done yesterday 1.1. Today's repeat lactic acid is pending. We also have chemistries pending from today. Yesterday's showed a creatinine of 9.15 and it is anticipated today's will be the same or worse. An ASO repeat titer that was ordered has jumped from 405 to 541 while not a massive change this does suggest the probable etiology here is group A strep. Blood cultures from admission remain negative as does the nasal MRSA swab. Last chest x-ray was from yesterday and we reviewed it yesterday. It shows persistent bilateral changes consistent with fluid overload or pulmonary edema. IMPRESSION: This patient is clearly failing our maximal medical therapy. Recall that when he was admitted we were concerned about soft tissue infection, though his legs essentially appeared at baseline. He was started on dapto, meropenem, and clindamycin. Out of concern for a possible beta-hemolytic strep infection, though also concerned about a broader spectrum of possible pathogens. At the time of admission, he already had renal failure and rapidly within hours developed respiratory failure. Since then, his course has been one of steady decline. Starting on Thursday the he started to have bullae formation on his right lower extremity perhaps consistent with underlying necrotizing soft tissue infection either polymicrobial or monomicrobial and antibiotics were continued broadly as mentioned above. Subsequently now have an ASO titer, which is rising. While not diagnostic this suggests that this is group A strep which would make clinical sense in this scenario. At this point, I think that the patient's chances of survival are zero. He was admitted with renal failure which has worsened as well as ventilatory dependent respiratory failure and has developed profound septic shock which has been refractory to all treatment modalities tried so far. I suspect the underlying organism here is group A strep perhaps with other organisms involved as well. He has been on three drugs which should have excellent efficacy including dapto, meropenem, and clindamycin. RECOMMENDATIONS: 1. We have aspirated a bleb and sent for culture. 2. In view of his high fevers, we will obtain two blood cultures today. These can both be obtained through the central line. 3. If we wish to continue with aggressive care in this case, which the family is leaning against, we might consider addition of an antifungal agent at this point, as the patient is certainly at high risk. 4. I have discussed this case with the pharmacist. While he has certainly been on a beta-lactam with high efficacy against group A strep, namely the meropenem, as well as dapto and clinda which are likely highly effective in this circumstance, will go ahead and add penicillin in maximal doses to our current antibiotic regimen. 5. I have told the family frankly that I think there is no chance of survival at this point, and they are considering scaling back on vasopressor and/or ventilatory support as additional family members arrive.
[2017-08-05] MEDS: Penicillin G K Inj 3,000,000 UNITS in IV Premix 1 EACH IV SCH ×3 (08:30→13:00)
[2017-08-05 08:43] LABS: BASOPHILS % (AUTO) 0 % (0-3); EOSINOPHILS % (AUTO) 0 % (0-5); MONOCYTES % (AUTO) 4 % (4-12); NEUTROPHILS % (AUTO) 90 % (40-74)
[2017-08-05] MEDS ORDERED: Albuterol-Ipratropium 3 mL Inhalation Solution NEB PRN (08:45)
[2017-08-05] MEDS: Meropenem Inj 1,000 MG in 0.9% Sodium Chloride 100 ML IV SCH (09:22)
[2017-08-05] MEDS: Famotidine Inj 20 MG in IV Premix 1 EACH IV SCH (09:58)
--- NOTE | 2017-08-05 10:34 | NUR ---
spiritual care: follow --family listening support as pt's family marc son Charlie, reflected on grief, preparation for pt's anticipated and spiritual/jose framing emotions and experiences. continuing to follow
--- NOTE | 2017-08-05 11:04 | PCM.PNMED ---
Subjective Date of Service Aug 05, 2017 Subjective Pulmonary/critical care progress note Du Flannery is a 42 year old male with past medical history significant for BMI of 93, recurrent lower extremity cellulitis in the setting of bilateral lymphedema, and glomerulonephritis who presented with right lower extremity pain and shortness of breath. Patient quickly worsened developing presumed streptococcal septic shock from right lower extremity celluitis requiring pressor support and intubation due to respiratory failure. Patient was also diagnosed with a probable pulmonary embolism by echocardiogram as his obesity prohibits standard imaging studies. Subsequent to these issues his kidneys have continued to decline and his presumed group A strep infection has developed into a fulminant case of necrotizing fasciitis. Interval history Yesterday family decided against placement of dialysis catheter or any surgical intervention for his right lower extremity necrotizing fasciitis. They would like to continue at this time with antibiotics and pressors to allow family together and say goodbye to the patient. Overnight patient has required increasing amounts of norepinephrine. Vent settings remain stable. Patient continues to have no urine output. Exam Vital Signs Vital Sign - Last Date Time Temp Pulse Resp B/P Pulse Ox O2 Delivery O2 Flow Rate FiO2 08/05/17 04:27 98 126/50 97 60 08/05/17 04:00 39.2 22 Mechanical Ventilator 07/30/17 09:28 3.00 Intake and Output 08/04/17 08/04/17 08/05/17 Cumulative From/Thru 14:58 22:58 06:58 07/29/17 08:35 - 08/05/17 06:35 Intake Total 70 ml 1538 ml 2926 ml 60089 ml Output Total 50 ml 640 ml 4858 ml Balance 70 ml 1488 ml 2286 ml 56477 ml Intake Oral 1303 ml IV Total 70 ml 1538 ml 2926 ml 15597 ml Packed Cells 375 ml FFP 550 ml Output Urine Total 50 ml 40 ml 1308 ml Gastric Drainage Total 0 ml 600 ml 3550 ml Other 0 ml # Voids 1 # Bowel Movements 0 Exam General: Morbidly obese male intubated and sedated. Eyes: Pupils equal round and reactive to light, anicteric sclera, noninjected conjunctiva. HENT: Normocephalic, atraumatic, ET tube in place. Cardiovascular: Distant heart sounds. Regular rate and rhythm. No extra heart sounds or murmurs although difficult to assess. Lungs: Clear to auscultation bilaterally without wheezes. Abdomen: Obese complicating assessment of bowel tones and/or organomegaly. Extremities: Severe bilateral lymphedema. Decreased pulses bilaterally at dorsalis pedis and posterior tibialis. Skin: Bilateral lower extremities ischemic in color with numerous bullae, sloughing of skin, and weeping extending to groin and abdomen. Right LE greater than left. Neuro: Unable to assess given intubated and sedated Psych: Unable to assess given intubated and sedated Lines and tubes: ET tube OG tube Left arterial line Right peripheral line Reddy catheter Lab and Diagnostics CBC Test 08/03/17 03:55 08/04/17 03:10 08/05/17 03:55 Haptoglobin 228mg/dL (34-200) Metamyelocytes % 1% (0-0) Hematology Comments White Blood Count th/mm3 (3.8-10.1) Corrected White Blood Count 35.8th/mm3 (3.8-10.1) Red Blood Count 3.39mil/mm3 (4.40-5.80) Hemoglobin 8.6g/dL (13.8-17.2) Hematocrit 26.4% (41.0-50.0) Mean Corpuscular Volume 77.9fL (81-100) Mean Corpuscular Hemoglobin 25.4pg (27.0-35.0) Mean Corpuscular Hemoglobin Concent 32.6% (32.0-37.0) Red Cell Distribution Width 16.6% (12.3-15.4) Platelet Count 276bil/L (150-400) Neutrophils (%) (Auto) 90% (40-74) Lymphocytes (%) (Auto) 5% (14-46) Monocytes (%) (Auto) 4% (4-12) Eosinophils (%) (Auto) 0% (0-5) Basophils (%) (Auto) 0% (0-3) Band Neutrophils % 1% (1-5) Nucleated Red Blood Cells 8/100 WBC (0-24) CMP Test 07/29/17 09:00 07/29/17 13:52 07/30/17 05:30 08/04/17 03:10 Troponin T < 0.010ug/L Pro-B-Type Natriuretic Peptide 1184pg/mL Osmolality 315 Hemoglobin A1c 5.8% Lactic Acid Level 1.1mmol/L Total Creatine Kinase 141U/L Test 08/05/17 03:55 Sodium Level 133mEq/L Potassium Level 6.8mEq/L Chloride Level 99mEq/L Carbon Dioxide Level 10mmol/L Blood Urea Nitrogen 97mg/dL Creatinine 10.77mg/dL Estimat Glomerular Filtration Rate 6mL/min Glucose Level 100mg/dL Calcium Level 6.8mg/dL Phosphorus Level 11.5mg/dL Magnesium Level 1.9mg/dL Total Bilirubin 0.5mg/dL Aspartate Amino Transf (AST/SGOT) 44U/L Alanine Aminotransferase (ALT/SGPT) 8U/L Alkaline Phosphatase 159U/L Total Protein 5.7g/dL Albumin 1.6g/dL Prealbumin 5mg/dL Procalcitonin 19.95ng/mL Result Diagram: 08/05/17 0355 08/04/17 0310 X-Rays, CTs and MRIs X-RAY CHEST ONE VIEW, PORTABLE IMPRESSION: 1. Borderline prominence of the heart with mild to moderate vascular congestion. 2. Left infrahilar density probably represents atelectasis. Please correlate clinically to exclude pneumonia. Approved by: Arie Blake M.D. on 07/29/2017 at 8:53 X-RAY CHEST ONE VIEW, PORTABLE IMPRESSION: No change is seen in the chest x-ray since the film of 0525 hrs. Approved by: Joseph Miller M.D. on 08/02/2017 at 15:15 Cardiac Echo Impressions ECHO on 07/30/17 Interpretation Summary Normal sinus rhythm. Normal LV size and wall thickness. There is septal dyskinesis. otherwise normal wall motion. EF is 60-65%. There is moderate RV dilation with normal RV function. Otherwise normal chamber sizes. Aortic sclerosis without stenosis. Otherwise no significant valvular abnormalities. Estimated PA systolic pressure is 71 mm Hg assuming RA pressure of 20 mm Hg. Compared to prior study 11/06/2016, mild RV dilation is new. Elevated PA systolic pressure is new. Dyskinetic septum is new. Findings are concerning for PE. Additional Diagnostics US VEINOUS LEG DUPLEX UNILATERAL, RIGHT IMPRESSION: Limited examination secondary to body habitus. The left common femoral vein not visualized and cannot be evaluated. Deep vein thrombosis involving the left common femoral vein cannot be excluded. No evidence of deep vein thrombosis involving the left superficial femoral vein or popliteal vein. Approved by: Ary Trejo MD, PhD on 07/29/2017 at 12:29 ABG pH ____7.231 - 7.350 7.450 pCO2 ___48.7__ -mmHg 35.0 45.0 pO2 ___68.5__ -mmHg 69.0 116 HCO3- ___19.7__ -mmol/L 22.0 26.0 Liter_Flow ____4.0__ -L/min Oxygen Device 1 __CANNULA - Assessment & Plan Du Flannery is a 42 year old male with past medical history significant for BMI of 93, recurrent lower extremity cellulitis in the setting of bilateral lymphedema, and glomerulonephritis who presented with right lower extremity pain and shortness of breath. Patient quickly worsened developing presumed streptococcal septic shock from right lower extremity celluitis requiring pressor support and intubation due to respiratory failure. Patient was also diagnosed with a probable pulmonary embolism by echocardiogram as his obesity prohibits standard imaging studies. Subsequent to these issues his kidneys have continued to decline and his presumed group A strep infection has developed into a fulminant case of necrotizing fasciitis. Yesterday family decided against placement of dialysis catheter, surgical intervention, for transfer to a higher level of care. They would like to continue at this time with antibiotics and pressors to allow family together and say goodbye to the patient. Respiratory Acute hypoxic hypercapnic respiratory failure in the setting of morbid obesity and obstructive sleep apnea. - Patient on admission complaining of shortness of breath. Patient was trialed on BiPAP but became progressively somnolent and was intubated approximately 24 hours after admission. - Vent settings FiO2 . PEEP 14 RR 22 TV 700. - ABG 08/05/2017: 7.15/34/134/11. - Patient dyssynchronous with the vent on 08/02/17 and was subsequently placed on Nimbex. Nimbex will be discontinued at this time. Possible pulmonary emboli. - Due to patient's morbid obesity unable to obtain a CT angiogram, VQ study, or lower extremity Doppler to evaluate for DVTs. Diagnosis of pulmonary emboli is based on echo findings and patient's symptoms. - Patient was started on a heparin drip but this has been discontinued due to both concerns of blood loss anemia along with the plan to place a dialysis catheter today. Obstructive Sleep Apnea. - Patient currently intubated. Infectious Necrotizing fascitis of right lower extremity in the setting of severe lymphedema. - Etiology likely streptococcal toxic shock. - Patient has a persistently elevated streptozyme. - Blood cultures are negative. - MRSA nasal screen negative. - Continue broad spectrum antibiotics per ID: clindamycin, daptomycin switched today to Penicillin G, meropenem. - Surgery consulted. Family has opted not to move forward with surgical interventions. Cardiorenal Severe sepsis with septic shock secondary to right lower extremity cellulitis. - Diagnosis made based on WBC 21.3, 32% bands, pro-calcitonin 85.02, heart rate 110, and MAPs in the 50s. - Patient initially received fluids but due to patient's severe renal failure fluids have been held except for what he is receiving with medications. - Increasing needs for Norepinephrine. Acute kidney injury on chronic kidney disease with noted chronic glomerulonephritis. - Patient's renal function has continued to decline over his last 8 hospitalizations since December. He has had poor outpatient follow-up with nephrology. - On admission creatinine 4.54. Creatinine continues to climb as patient remains anuric. - Numerous electrolyte abnormalities. Patient's family has declined dialysis. - Dr. Hernandez, nephrology, following. Appreciate time and recommendations. Hematologic Possible acute blood loss anemia. - 1 unit PRBCs received during hospitalization. - No definitive source of bleeding. - Heparin drip stopped on 08/02/17. Metabolic Electrolyte derangements secondary to renal failure. Alimentary Trophic tube feeds started 08/04/2017. Neuro Currently sedated with lorazepam and fentanyl gtt. Paralyzed with Nimbex. This will be titrated off today to allow patient to interact if at all possible. Family is aware that this may require increased FiO2. DVT prophylaxis: Heparin drip discontinued given worsening anemia and placement of dialysis catheter today. GI prophylaxis: Famotidine CODE STATUS full code. GI Prophylaxis: Not indicated VTE Prophylaxis: Other (heparin drip discontinued ) Resuscitation Status: Limited Interventions (DNR, no CPR ) Attending Statement I have seen and examined this patient with the resident physician. Vital signs , labs, imaging have been reviewed. I agree with the assessment and plan above. Please refer to my separately dictated progress note for any modifications to above. Elizabeth Alatorre M.D. Pulmonary and Critical Care medicine Pager [phone] YARED LAGUNA DO Aug 05, 2017 08:03 Elizabeth Alatorre MD Aug 06, 2017 13:28
--- NOTE | 2017-08-05 11:27 | NUR ---
Inpatient Wound Nurse CWON checked on patient to assess for changes. Edema is greatly increased and multiple bulla noted over BLE and abdomen. Some of these are draining serous fluid, others are intact. Skin is extremely fragile, sloughing, and sour odor. No specific care for wound closure is indicated. Palliative wound care approach is recommended,focusing on comfort and least disruptive regimen to patient and family. Self-adhesive, non-bordered Mepilex sheet foam laid over blisters/bullae may help contain odor and drainage. CWON is available to assist with frequent sg changes, if needed. Primary CCU RN aware.
--- NOTE | 2017-08-05 12:03 | PROG NOTE ---
[address] [address] PROGRESS NOTE PATIENT: PO DELGADO : 1975 MR#: [id number] ADMIT: 07/29/2017 JOB ID: [id number] DATE: 08/05/2017 PULMONARY CRITICAL CARE PROGRESS NOTE: The patient is a 42-year-old man with super morbid obesity admitted with septic shock, necrotizing soft tissue infection, and acute respiratory and renal failure. The patient was seen and evaluated with resident physician, Dr. Priyanka Wallace Please refer to her separate detailed note for complete information. The following is a brief attending note. INTERVAL HISTORY: Overnight the areas of blistering on his legs and lower abdomen have worsened. He is on a higher amount of IV norepinephrine. His electrolytes have also significantly worsened and his potassium is up to 6.8 this morning. REVIEW OF SYSTEMS: Could not be obtained. PHYSICAL EXAMINATION: Vital signs reviewed. T-max is 39.2, FiO2 60%, and PEEP 14. General a super morbidly obese gentleman intubated, currently unresponsive. Chest clear to auscultation. LABORATORIES: Reviewed. WBC up to 35.8, from 19 yesterday. Chemistry also reviewed. Notable for potassium is 6.8, creatinine of 10.7. Procalcitonin 19.9. Chest x-ray shows worsening bibasilar atelectasis from yesterday. He does not have a new chest x-ray today. Cultures no new growth. Arterial blood gas shows pH 7.15, pCO2 around 30, and bicarb around 10. ASSESSMENT AND RECOMMENDATIONS: 1. Septic shock. 2. Necrotizing soft tissue infection of the right lower extremity and lower abdominal wall. 3. Acute hypoxic hypercarbic respiratory failure. 4. Acute renal failure. 5. Super morbid obesity body mass index of 93, weight of 695 pounds. 6. Severe hyperkalemia. 7. Severe metabolic acidosis. This unfortunate 42-year-old man with super morbid obesity weighing close to 700 pounds, with a BMI of 95, has had recurrent hospitalizations in the past with soft-tissue infections which have typically improved with antibiotics, but now is presenting with a progressive worsening soft tissue infection with likely necrotizing process. After much discussion, which is all documented in my note yesterday, the family has decided against transferring to a facility in [place], namely [facility], and against surgical options because of very low likelihood of recovery with all of his underlying medical problems. They have also decided against hemodialysis as of my detailed conversation yesterday. Today, he is still on the ventilator at 60% FiO2 and 14 cm of PEEP, on paralytics with cisatracurium. I recommended against continuing this since it would allow the family to have more time with him and allow the patient more comfort possibly to not be paralyzed. With regards to his kidneys, his creatinine and potassium have continued to rise and his potassium is now at a life-threatening level putting him at high risk for cardiac arrhythmias. I really do not think we should react to this or try to correct this level at this point since we are essentially on modified comfort measures. I explained this to his who understands. He is still on antibiotics-meropenem, daptomycin, penicillin, and clindamycin mostly per family wishes. However the likelihood of a necrotizing soft tissue infection improving with antibiotics is pretty much zero. I will speak to the family again by the end of the day about considering comfort measures and compassionate extubation. At this point, however he is do not resuscitate i.e. no CPR or shock in the event of cardiac arrest and the family is in agreement with this. Critical care time 60 minutes MTDD
[2017-08-05] MEDS: DAPTOmycin Inj 1,000 MG in 0.9% Sodium Chloride 50 ML IV SCH (13:09)
--- NOTE | 2017-08-05 15:42 | PCM.PNMED ---
Subjective Date of Service Aug 05, 2017 Subjective Du Flannery is a 42 year old male recurrent leg cellulitis, severe bilateral lymphedema, hypertension, chronic pain, obstructive sleep apnea who presents to [facility] emergency department with increased redness on left leg and shortness of breath. There were no acute events overnight. Today, patient's ischemia of the bilateral lower extremities has worsened. Skin is dark/purple/dusky in color that has extended up to the abdomen. In addition, the blisters have extended up to the abdomen. Patient is currently DNR, No CPR, No shock. Exam Vital Signs Vital Sign - Last Date Time Temp Pulse Resp B/P Pulse Ox O2 Delivery O2 Flow Rate FiO2 08/05/17 12:00 98 92/48 97 60 08/05/17 04:00 39.2 22 Mechanical Ventilator 07/30/17 09:28 3.00 Intake and Output 08/04/17 08/04/17 08/05/17 Cumulative From/Thru 15:00 23:00 07:00 07/29/17 08:35 - 08/05/17 06:35 Intake Total 70 ml 1538 ml 2926 ml 66176 ml Output Total 50 ml 640 ml 4858 ml Balance 70 ml 1488 ml 2286 ml 59811 ml Intake Oral 1303 ml IV Total 70 ml 1538 ml 2926 ml 87378 ml Packed Cells 375 ml FFP 550 ml Output Urine Total 50 ml 40 ml 1308 ml Gastric Drainage Total 0 ml 600 ml 3550 ml Other 0 ml # Voids 1 # Bowel Movements 0 Exam General: Patient is a morbidly obese male, lying with head propped upright on bed, intubated on ventilator HEENT: head normocephalic and atraumatic, PERRLA, EOMI, no scleral icterus, injected conjunctiva Neck: neck supple, non-tender, no lymphadenopathy, trachea midline, no JVD CV: regular rate and rhythm but heart sounds are very distant, radial pulses are palpable bilaterally, no murmurs Lungs: lung sounds are also distant and appears to be decreased bilaterally Abdomen: pannus is massive, evidence of small laceration on left side of abdomen , covered by panus, normoactive bowel sounds, soft, and very tympanic to percussion, bottom of pannus is darkening with evidence of induration and some blisters Skin:warm and dry Extremities: significant lymphedema with tree-bark appearance of lower extremities bilaterally, Right leg is bigger in size compared to left leg, evident erythema and induration noted. worsening blisters, now extending to the abdomen, draining serosanguineous fluid and skin getting darker Neuro: unable to assess as patient is very somnolent Psych:unable to assess as patient is very somnolent : Reddy catheter IVs and Medications Medications Reviewed: Medications were reviewed in detail Lab and Diagnostics Result Diagram: 08/05/17 0355 08/05/17 0355 X-Rays, CTs and MRIs X-RAY CHEST ONE VIEW, PORTABLE IMPRESSION: 1. Borderline prominence of the heart with mild to moderate vascular congestion. 2. Left infrahilar density probably represents atelectasis. Please correlate clinically to exclude pneumonia. Approved by: Arie Blake M.D. on 07/29/2017 at 8:53 X-RAY CHEST ONE VIEW, PORTABLE IMPRESSION: No change is seen in the chest x-ray since the film of 0525 hrs. Approved by: Joseph Miller M.D. on 08/02/2017 at 15:15 Cardiac Echo Impressions ECHO on 07/30/17 Interpretation Summary Normal sinus rhythm. Normal LV size and wall thickness. There is septal dyskinesis. otherwise normal wall motion. EF is 60-65%. There is moderate RV dilation with normal RV function. Otherwise normal chamber sizes. Aortic sclerosis without stenosis. Otherwise no significant valvular abnormalities. Estimated PA systolic pressure is 71 mm Hg assuming RA pressure of 20 mm Hg. Compared to prior study 11/06/2016, mild RV dilation is new. Elevated PA systolic pressure is new. Dyskinetic septum is new. Findings are concerning for PE. Additional Diagnostics US VEINOUS LEG DUPLEX UNILATERAL, RIGHT IMPRESSION: Limited examination secondary to body habitus. The left common femoral vein not visualized and cannot be evaluated. Deep vein thrombosis involving the left common femoral vein cannot be excluded. No evidence of deep vein thrombosis involving the left superficial femoral vein or popliteal vein. Approved by: Ary Trejo MD, PhD on 07/29/2017 at 12:29 ABG pH ____7.231 - 7.350 7.450 pCO2 ___48.7__ -mmHg 35.0 45.0 pO2 ___68.5__ -mmHg 69.0 116 HCO3- ___19.7__ -mmol/L 22.0 26.0 Liter_Flow ____4.0__ -L/min Oxygen Device 1 __CANNULA - Assessment & Plan Du Flannery is a 42 year old male recurrent leg cellulitis, severe bilateral lymphedema, hypertension, chronic pain, obstructive sleep apnea who presents to [facility] emergency department with increased redness on left leg and shortness of breath. Patient has been transferred to the ICU and was intubated by the anesthesiologist and placed on volume ventilation. A right IJ line was placed in addition to a radial arterial line. Antibiotics were started per infectious disease. Acute on chronic kidney disease is worsening, likely as a result of acute tubular necrosis secondary to sepsis and septic shock. Patient was found to have evidence of possible pulmonary embolism from echocardiogram and was on heparin drip but this has been discontinued. Patient remains on norepi drip for pressure support and trophic tube feeds were started on 08/04/17. There is concern that patient may be developing a necrotizing skin infection and general surgery has been consulted, who suggested that patient be transferred to [facility]. However, family opted not to proceed with the transfer given that chances of recovery is not very promising. In addition, given the worsening renal function, there is no indication to do dialysis at this time as patient is essentially comfort measures. Patient is now DNR, no CPR and no shock. Severe Sepsis with Septic Shock likely Streptococcal Toxic Shock Syndrome -Initially, WBC 21.3, 32% bands, pro-calcitonin and 85.02 -Today, Procalcitonin 19.95, WBC 35.8 -Infectious Disease, Dr. 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 possible streptococcal toxic shock syndrome -Per ID, continue with maximal dose daptomycin, meropenem and clindamycin -concern for likely soft tissue necrotizing fasciitis -Continue to monitor CBC, procalcitonin -Patient requires norepinephrine to maintain this pressures,currently unable to titrate norepinephrine off, -nephrology initiated Lasix drip given tenuous blood pressures and significant volume overload after acute decompensation requiring IV fluids -Lasix drip has been discontinued Acute hypoxic hypercapnic respiratory failure -with severe metabolic and respiratory acidosis - Possibly combined effects of obesity hypoventilation syndrome and pulmonary emboli - Noted pH of 7.23 with PCO2 of 48.7 and PO2 of 68.5 on 4 L nasal cannula in the ED - Initially, RT placed BiPAP as necessary with oxygen goals between 88 and 92% given possibility of chronic CO2 retention but patient continued to decompensate and was intubated -Patient intubated on volume ventilation -Per ICU team, try to get the patient more upright in order to better ventilate the bases. -ICU team adjusting vent settings -Patient was dyssynchronous with vent and started on Nimbex -Patient received Ativan and Fentanyl, but try to avoid sedation as much as possible Possible Acute pulmonary emboli -as evidenced by ECHO findings - Patient has lower extremity edema making clinical signs of DVT as well as LE US imaging difficult, however is notably sedentary lifestyle with d-dimer of 1.91 and a heart rate greater than 100, with review of records indicated that the patient is not typically tachycardic at baseline, giving him a well's score of 4.5 with a moderate risk of pulmonary emboli approximately 16.2% - Given patient's body habitus and poor kidney function no ability to perform CT PE or VQ scan - Warfarin and heparin drip discontinued per deposit refund clerk Dr. 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 Right renal cortical thickness is 1.7 cm; left renal cortical thickness is 1.6 cm. Renal cortical echotexture is normal. - Chronic kidney disease with currently uncertain staging given with baseline creatinine approximately 1.1-1.3 in December 2016 with consistent increases in creatinine every hospitalization since December to current admission - Creatinine of 4.54 admission, worse today with BUN and creatinine were 54 and 6.7 -His C3 and C4 are both normal thus excluding acute glomerulonephritis - Fractional excretion of sodium calculated at 0.6% consistent with prerenal causes for worsening kidney injury - Nephrology, Dr. Hernandez to initiate a Lasix drip with continued albumin infusion scheduled, this case was discussed extensively with nephrology given the guarded prognosis -Today BUN 83, Cr 9.15and Potassium 5.2. Given worsening renal function and anuria, the plan was to place a dialysis catheter and dialyze patient. However, per family's wishes, we will pursue a different route -Continue Sodium acetate drip Acute on chronic cellulitis of right lower extremity - poor circulation and Lymphedema are contributing factors to recurrent infections. - White blood cell count of 4.4 notably lower than prior admissions possibly atypically consistent with infectious etiology, pro-calcitonin of 0.37 typically considered indeterminate - Pt last hospitalized on 06/11/2017 for cellulitis, left AMA, at that time ID was consulted, recommended ceftriaxone while inpatient and cefdinir 300 once per day as outpatient for minimum of 10 days, with clindamycin 300 mg p.o. b.i.d. indefinitely as prophylaxis. - Blood Culture ordered and pending - MRSA negative - Continue with ID recommendations of clindamycin, daptomycin, meropenem Acute worsening of Chronic normocytic anemia - Hemoglobin of 8.8 at admission with MCV of 83 - Chronic anemia is likely secondary to chronic kidney disease with severe glomerulonephritis blood loss as well as poor erythropoietin production - Hemoglobin continues to trend down to hemoglobin in the mid sevens, currently uncertain if this is due to heparin drip and warfarin anticoagulation resulting in a spontaneous bleed or secondary to hemodilution given significant maintenance fluids resulting in 18 L net positive - Warfarin and heparin drip discontinued per deposit refund clerk Dr. Mckeon recommendations which was discussed extensively given the patient's poor prognosis with pulmonary emboli not on anticoagulation currently intubated and sedated -2 units FFP is given -Patient received 1 unit PRBcs overnight - Monitor Hypertension, chronic, not ongoing -Patient is currently normotensive - Monitor and hold home medication until more normotensive - Consider initiating alternative blood pressure medication to amlodipine considering chronic lower extremity edema - Avoid Poncho inhibitors given kidney disease with acute kidney injury - Consider initiating labetalol 100 mg by mouth twice a day as necessary Depression, chronic - continue Sertraline 150 mg daily when able Chronic severe morbid Obesity - continue pulse oximetry - Pt does not use CPAP at home -Patient's BMI is 90.9 Chronic pain syndrome - Patient generally receives ativan for anxiety continue for sedation reasons while intubated -Hold home dose of oxycodone while intubated Obstructive Sleep Apnea, chronic - Patient currently intubated Chronic prediabetic [id number] - A1c of 6.3 in April 2017 - A1c on this admission 5.8 DVT prophylaxis: Heparin drip discontinued given worsening anemia GI prophylaxis: Not indicated CODE STATUS is full. Patient is likely to remain inpatient for a prolonged period of time giving current state of health. Prognosis is tenuous given the primary diagnosis. Medical team will discuss further with family regarding comfort measures. Pain Evaluation: Adequate Pain Control GI Prophylaxis: Not indicated VTE Prophylaxis: Other (heparin drip discontinued ) Resuscitation Status: Limited Interventions (DNR, no CPR ) Attending Statement The patient was seen and examined together with Dr. Merritt on 08/05/2017 and I agree with the history, exam and plan as outlined in the note above. . Eusebia Merritt DO Aug 05, 2017 15:42 Rod Grimaldo MD Aug 05, 2017 16:22
[2017-08-05] MEDS ORDERED: fentaNYL-PF 50 mCg/mL 2 mL Inj IVPUSH PRN (16:05)
--- NOTE | 2017-08-05 17:18 | NUR ---
Comfort Care Measures.. Pt has been minimally responsive throughout shift only moving head when suctioned, does have a gag reflex to oral suctioning. Family has been at bedside and counseled by MD in regards to pt's poor prognosis. This afternoon B/P is becoming more persistently hypotensive. Dr Alatorre update and she has spoken again to family and they have decided to withdraw ventilator/medication support once the last family member arrives around 1900. and sister have been in contact with [place] [facility] and are in the process of making arrangements. Cleo from Donation was notified with an update and pt is not a candidate for solid organ donation
--- NOTE | 2017-08-05 17:26 | NUR ---
spiritual care: family/handprint made handprint per family request and led bedside prayer ritual. many family members participating, coping, grieving.
[2017-08-05] MEDS ORDERED: Norepinephrine 8,000 mCg/250 mL NS Premix IV ONE (19:39)
[2017-08-05] MEDS ORDERED: Morphine 100 mg/100 mL NS 100 MG in IV Premix 1 EACH IV SCH (20:10)
--- NOTE | 2017-08-05 23:16 | NUR ---
Pt's family decided on comfort care with extubation. Family members spent time with loved one. Morphine gtt started and subsequently increased to decrease feelings of SOB and increase comfort. Pt extubated at 2044. Time of at 2049. Call placed to site light and was determined he was not a organ/tissue/cornea donor. All belongings sent with . Family chose [facility]. Susana picked up patient at 2310. Once family had left it was discovered there was a twine and tooth necklace and a sweat shirt with the patient's last name left outside the room. Belongings placed in bag and sent along with home attendees.
--- NOTE | 2017-08-07 06:37 | PCM.DC.MEX ---
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 Persistent pulmonary edema and/or diffuse bilateral pneumonia not significantly changed from prior examination. 2. Small basilar pleural effusions and persistent cardiomegaly. Dictated by: [facility] Interpreted: Marcia Frias MD on 08/04/2017 at 7: 51 X-RAY CHEST ONE VIEW, PORTABLE IMPRESSION: 1. Borderline prominence of the heart with mild to moderate vascular congestion. 2. Left infrahilar density probably represents atelectasis. Please correlate clinically to exclude pneumonia. Approved by: Arie Blake M.D. on 07/29/2017 at 8:53 X-RAY CHEST ONE VIEW, PORTABLE IMPRESSION: No change is seen in the chest x-ray since the film of 0525 hrs. Approved by: Joseph Miller M.D. on 08/02/2017 at 15:15 Cardiac Echo Impression ECHO on 07/30/17 Interpretation Summary Normal sinus rhythm. Normal LV size and wall thickness. There is septal dyskinesis. otherwise normal wall motion. EF is 60-65%. There is moderate RV dilation with normal RV function. Otherwise normal chamber sizes. Aortic sclerosis without stenosis. Otherwise no significant valvular abnormalities. Estimated PA systolic pressure is 71 mm Hg assuming RA pressure of 20 mm Hg. Compared to prior study 11/06/2016, mild RV dilation is new. Elevated PA systolic pressure is new. Dyskinetic septum is new. Findings are concerning for PE. Other Diagnostics US VEINOUS LEG DUPLEX UNILATERAL, RIGHT IMPRESSION: Limited examination secondary to body habitus. The left common femoral vein not visualized and cannot be evaluated. Deep vein thrombosis involving the left common femoral vein cannot be excluded. No evidence of deep vein thrombosis involving the left superficial femoral vein or popliteal vein. Approved by: Ary Trejo MD, PhD on 07/29/2017 at 12:29 Brief History Per H&P by Dr. De Oliveira on 07/29/17: Du Flannery is a 42yo male with a history of chronic lower extremity cellulitis, bilateral lymphedema, morbid obesity with panniculitis, and chronic kidney disease presents to the emergency department with the chief complaint of new onset right lower leg pain. Patient states that the pain in his right leg began acutely this morning at 06:30. He describes the pain as a persistent throbbing with burning and soreness, with radiation from his foot to abdomen, sparing his toes, and associated with numbness on his legs. At its worst the patient would rate the pain at 8 out of 10. At the onset of the pain he also experienced shortness of breath, fatigue, chills, and dizziness. The patient states that this episode of right lower leg pain is consistent with previous episodes of cellulitis which required antibiotics in hospital stays. He admits to being hospitalized for several episodes of cellulitis, eight total since 12/09 , with his last episodes 07/23/17 and states that this feels the same as each prior admission. Patient admits to a persistent cough since April with clear sputum production. Patient also admits to chronic dark urine. The patient was scheduled to see nephrology in May however he became sick and required a hospitalization and missed his outpatient nephrology appointment with Dr. Walton. Denies recent illness, new medications, sick contacts, trauma, and any history of diabetes. The patient was seen for possible bariatric surgery evaluation in January however was deemed a poor candidate given his chronic cellulitis. The patient has not been using his home CPAP. Hospital Course Du Flannery is a 42 year old male recurrent leg cellulitis, severe bilateral lymphedema, hypertension, chronic pain, obstructive sleep apnea who presents to [facility] emergency department with increased redness on left leg and shortness of breath. Patient has been transferred to the ICU and was intubated by the anesthesiologist and placed on volume ventilation. A right IJ line was placed in addition to a radial arterial line. Antibiotics were started per infectious disease. Acute on chronic kidney disease is worsening, likely as a result of acute tubular necrosis secondary to sepsis and septic shock. Patient was found to have evidence of possible pulmonary embolism from echocardiogram and was on heparin drip but this has been discontinued. Patient remains on norepi drip for pressure support and trophic tube feeds were started on 08/04/17. There is concern that patient may be developing a necrotizing skin infection and general surgery has been consulted, who suggested that patient be transferred to [facility]. However, family opted not to proceed with the transfer given that chances of recovery is not very promising. In addition, given the worsening renal function, there is no indication to do dialysis at this time as patient is essentially comfort measures. Patient is now DNR, no CPR and no shock. Diagnostic markers of infection, oxygenation and ventilation, blood pressure, and kidney function worsened until patient was decided on comfort care with extubation, per family's request. Family members spent time with loved one. Morphine gtt started and subsequently increased to decrease feelings of SOB and increase comfort. Pt extubated at 2044. 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 possible streptococcal toxic shock syndrome -Per ID, continue with maximal dose daptomycin, meropenem and clindamycin -concern for likely soft tissue necrotizing fasciitis -Continued to monitor CBC, procalcitonin -Patient requires norepinephrine to maintain this pressures,currently unable to titrate norepinephrine off, -nephrology initiated Lasix drip given tenuous blood pressures and significant volume overload after acute decompensation requiring IV fluids -Lasix drip has been discontinued Acute hypoxic hypercapnic respiratory failure -with severe metabolic and respiratory acidosis - Possibly combined effects of obesity hypoventilation syndrome and pulmonary emboli - Noted pH of 7.23 with PCO2 of 48.7 and PO2 of 68.5 on 4 L nasal cannula in the ED - Initially, RT placed BiPAP as necessary with oxygen goals between 88 and 92% given possibility of chronic CO2 retention but patient continued to decompensate and was intubated -Patient intubated on volume ventilation -Per ICU team, try to get the patient more upright in order to better ventilate the bases. -ICU team adjusting vent settings -Patient was dyssynchronous with vent and started on Nimbex -Patient received Ativan and Fentanyl, but try to avoid sedation as much as possible Possible Acute pulmonary emboli -as evidenced by ECHO findings - Patient has lower extremity edema making clinical signs of DVT as well as LE US imaging difficult, however is notably sedentary lifestyle with d-dimer of 1.91 and a heart rate greater than 100, with review of records indicated that the patient is not typically tachycardic at baseline, giving him a well's score of 4.5 with a moderate risk of pulmonary emboli approximately 16.2% - Given patient's body habitus and poor kidney function no ability to perform CT PE or VQ scan - Warfarin and heparin drip discontinued per automotive title clerk Dr. 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 Right renal cortical thickness is 1.7 cm; left renal cortical thickness is 1.6 cm. Renal cortical echotexture is normal. - Chronic kidney disease with currently uncertain staging given with baseline creatinine approximately 1.1-1.3 in December 2016 with consistent increases in creatinine every hospitalization since December to current admission - Creatinine of 4.54 admission, worse today with BUN and creatinine were 54 and 6.7 -His C3 and C4 are both normal thus excluding acute glomerulonephritis - Fractional excretion of sodium calculated at 0.6% consistent with prerenal causes for worsening kidney injury - Nephrology, Dr. Hernandez to initiate a Lasix drip with continued albumin infusion scheduled, this case was discussed extensively with nephrology given the guarded prognosis -Today BUN 83, Cr 9.15and Potassium 5.2. Given worsening renal function and anuria, the plan was to place a dialysis catheter and dialyze patient. However, per family's wishes, we will pursue a different route -Continue Sodium acetate drip Acute on chronic cellulitis of right lower extremity - poor circulation and Lymphedema are contributing factors to recurrent infections. - White blood cell count of 4.4 notably lower than prior admissions possibly atypically consistent with infectious etiology, pro-calcitonin of 0.37 typically considered indeterminate - Pt last hospitalized on 06/11/2017 for cellulitis, left AMA, at that time ID was consulted, recommended ceftriaxone while inpatient and cefdinir 300 once per day as outpatient for minimum of 10 days, with clindamycin 300 mg p.o. b.i.d. indefinitely as prophylaxis. - Blood Culture ordered and pending - MRSA negative - Continue with ID recommendations of clindamycin, daptomycin, meropenem Acute worsening of Chronic normocytic anemia - Hemoglobin of 8.8 at admission with MCV of 83 - Chronic anemia is likely secondary to chronic kidney disease with severe glomerulonephritis blood loss as well as poor erythropoietin production - Hemoglobin continues to trend down to hemoglobin in the mid sevens, currently uncertain if this is due to heparin drip and warfarin anticoagulation resulting in a spontaneous bleed or secondary to hemodilution given significant maintenance fluids resulting in 18 L net positive - Warfarin and heparin drip discontinued per automotive title clerk Dr. Mckeon recommendations which was discussed extensively given the patient's poor prognosis with pulmonary emboli not on anticoagulation currently intubated and sedated -2 units FFP is given -Patient received 1 unit PRBcs overnight - Monitor Hypertension, chronic, not ongoing -Patient is currently normotensive - Monitor and hold home medication until more normotensive - Consider initiating alternative blood pressure medication to amlodipine considering chronic lower extremity edema - Avoid Poncho inhibitors given kidney disease with acute kidney injury - Consider initiating labetalol 100 mg by mouth twice a day as necessary Depression, chronic - continue Sertraline 150 mg daily when able Chronic severe morbid Obesity - continue pulse oximetry - Pt does not use CPAP at home -Patient's BMI is 90.9 Chronic pain syndrome - Patient generally receives ativan for anxiety continue for sedation reasons while intubated -Hold home dose of oxycodone while intubated Obstructive Sleep Apnea, chronic - Patient currently intubated Chronic prediabetic [id number] - A1c of 6.3 in April 2017 - A1c on this admission 5.8 Exam Test 07/29/17 09:00 07/29/17 13:00 07/29/17 13:52 07/29/17 14:22 D-Dimer 1.91mg/L FEU (<0.50) Troponin T < 0.010ug/L (0.0-0.011) Pro-B-Type Natriuretic Peptide 1184pg/mL (0-86) Urine Osmolality 303mOs/kH2O (250-1200) Urine Random Creatinine 213mg/dL (22-328) Urine Random Sodium 40mEq/L Osmolality 315 (275-300) Urine Urea Nitrogen 285mg/dL (Not Estab.) Test 07/30/17 05:30 07/30/17 09:30 07/30/17 17:37 08/02/17 13:00 Hemoglobin A1c 5.8% (4.8-5.6) Complement C3 127mg/dL (82-167) Complement C4 23mg/dL (14-44) Urine Color Dark yellow (YELLOW) Urine Appearance Turbid (CLEAR,HAZY) Urine pH 6.5 (5.0-8.0) Urine Specific [place] 1.020 (1.003-1.035) Urine Protein 300mg/dL (NEG,TRACE) Urine Glucose (UA) 100mg/dL (NEGATIVE) Urine Ketones Negativemg/dL (NEGATIVE) Urine Occult Blood Large (NEGATIVE) Urine Nitrite Negative (NEGATIVE) Urine Bilirubin Negative (NEGATIVE) Urine Urobilinogen 1.0mg/dL (NORMAL) Urine Leukocyte Esterase Trace (NEGATIVE) Urine RBC 3-10/hpf (0-2) Urine WBC 0-5/hpf (0-5) Urine Epithelial Cells None/hpf (NONE-MOD) Urine Crystals None seen (NONE SEEN) Urine Bacteria None/hpf (NONE-FEW) Urine Hyaline Casts None/lpf (NONE) Urine Granular Casts None seen (NONE SEEN) Urine Waxy Casts None seen (NONE SEEN) Urine Red Blood Cell Casts None seen (NONE SEEN) Urine White Blood Cell Casts None seen (NONE SEEN) Urine Mucus None seen (None Seen) Urine Trichomonas None seen (NONE SEEN) Urine Yeast None (NONE SEEN) Urinalysis Comment None Urine Culture Reflexed Indicated Urine Legionella pneumophilia Ag Negative (Negative) Activated Partial Thromboplast Time 82.3sec (22.8-33.0) Test 08/03/17 03:55 08/04/17 03:10 08/04/17 13:54 08/05/17 03:55 Haptoglobin 228mg/dL (34-200) Fibrinogen 547mg/dL (157-380) Metamyelocytes % 1% (0-0) Hematology Comments Lactic Acid Level 1.1mmol/L (0.4-2.0) Total Creatine Kinase 141U/L (21-232) Streptozyme 541.0IU/mL (0.0-200.0) White Blood Count th/mm3 (3.8-10.1) Corrected White Blood Count 35.8th/mm3 (3.8-10.1) Red Blood Count 3.39mil/mm3 (4.40-5.80) Hemoglobin 8.6g/dL (13.8-17.2) Hematocrit 26.4% (41.0-50.0) Mean Corpuscular Volume 77.9fL (81-100) Mean Corpuscular Hemoglobin 25.4pg (27.0-35.0) Mean Corpuscular Hemoglobin Concent 32.6% (32.0-37.0) Red Cell Distribution Width 16.6% (12.3-15.4) Platelet Count 276bil/L (150-400) Neutrophils (%) (Auto) 90% (40-74) Lymphocytes (%) (Auto) 5% (14-46) Monocytes (%) (Auto) 4% (4-12) Eosinophils (%) (Auto) 0% (0-5) Basophils (%) (Auto) 0% (0-3) Band Neutrophils % 1% (1-5) Nucleated Red Blood Cells 8/100 WBC (0-24) Prothrombin Time 14.1sec (8.1-12.5) Prothromb Time International Ratio 1.31ratio Sodium Level 133mEq/L (134-144) Potassium Level 6.8mEq/L (3.5-5.2) Chloride Level 99mEq/L (97-108) Carbon Dioxide Level 10mmol/L (18-29) Blood Urea Nitrogen 97mg/dL (6-24) Creatinine 10.77mg/dL (0.76-1.27) Estimat Glomerular Filtration Rate 6mL/min (>59) Glucose Level 100mg/dL (60-99) Calcium Level 6.8mg/dL (8.5-10.1) Phosphorus Level 11.5mg/dL (2.5-4.9) Magnesium Level 1.9mg/dL (1.6-2.6) Total Bilirubin 0.5mg/dL (0.0-1.2) Aspartate Amino Transf (AST/SGOT) 44U/L (0-50) Alanine Aminotransferase (ALT/SGPT) 8U/L (0-44) Alkaline Phosphatase 159U/L (25-150) Total Protein 5.7g/dL (6.4-8.4) Albumin 1.6g/dL (3.4-5.0) Prealbumin 5mg/dL (20-40) Procalcitonin 19.95ng/mL (0.00-0.08) Test 08/05/17 07:30 Hold Urine Received (Received) Attending Statement The patient was seen and examined together with Dr. Merritt on 08/05/2017 and I agree with the history, exam and plan as outlined in the note above. . copies to: Supa Alegria Alexa N DO Aug 07, 2017 06:37 Rod Grimaldo MD Aug 07, 2017 07:29
== END 2017-08-05 20:50 | disposition expired | DRG 207 ==
LOC: SED 08:18 → PCC 12:16 → CCU 07-30 12:22
PROVIDERS: ADMIT Neuromusculoskeletal Medicine & OMM; ATTEND Neuromusculoskeletal Medicine & OMM
PROC: 4A033R1 Measurement of Arterial Saturation, Peripheral, Percutaneous Approach (ICD-10-PCS; 2017-07-29)
PROC: 0BH17EZ Insertion of Endotracheal Airway into Trachea, Via Natural or Artificial Opening (ICD-10-PCS; principal; 2017-07-30)
PROC: 5A1955Z Respiratory Ventilation, Greater than 96 Consecutive Hours (ICD-10-PCS; 2017-07-30)
PROC: 03HY32Z Insertion of Monitoring Device into Upper Artery, Percutaneous Approach (ICD-10-PCS; 2017-07-30)
PROC: 05H533Z Insertion of Infusion Device into Right Subclavian Vein, Percutaneous Approach (ICD-10-PCS; 2017-07-30)
PROC: 30233N1 Transfusion of Nonautologous Red Blood Cells into Peripheral Vein, Percutaneous Approach (ICD-10-PCS; 2017-08-03)
PROC: 30233K1 Transfusion of Nonautologous Frozen Plasma into Peripheral Vein, Percutaneous Approach (ICD-10-PCS; 2017-08-03)
DX: J96.01 Acute respiratory failure with hypoxia (principal); A48.3 Toxic shock syndrome; R65.21 Severe sepsis with septic shock; I26.99 Other pulmonary embolism without acute cor pulmonale; N17.0 Acute kidney failure with tubular necrosis; M72.6 Necrotizing fasciitis; L03.115 Cellulitis of right lower limb; E66.2 Morbid (severe) obesity with alveolar hypoventilation; Z68.45 Body mass index [BMI] 70 or greater, adult; N04.1 Nephrotic syndrome with focal and segmental glomerular lesions; N02.8 Recurrent and persistent hematuria with other morphologic changes; E87.4 Mixed disorder of acid-base balance; D62 Acute posthemorrhagic anemia; F11.20 Opioid dependence, uncomplicated; M79.3 Panniculitis, unspecified; N05.9 Unspecified nephritic syndrome with unspecified morphologic changes; M06.9 Rheumatoid arthritis, unspecified; B95.0 Streptococcus, group A, as the cause of diseases classified elsewhere; I89.0 Lymphedema, not elsewhere classified; N18.9 Chronic kidney disease, unspecified; D63.1 Anemia in chronic kidney disease; R73.03 Prediabetes; G89.4 Chronic pain syndrome; F32.9 Major depressive disorder, single episode, unspecified; I87.8 Other specified disorders of veins; G47.33 Obstructive sleep apnea (adult) (pediatric); Z51.5 Encounter for palliative care; Z66 Do not resuscitate; B95.5 Unspecified streptococcus as the cause of diseases classified elsewhere; I27.2 Other secondary pulmonary hypertension